=== PATIENT | male | born 1950 | race Caucasian/White ===

== ENCOUNTER → 2016-08-28 | Outpatient (REF) | payer OTHER ==
[~2016-08-28] MED LIST: AMLO10TA2 PO; ASPI81TA85 PO; ATOR40TA PO; GABA300C3 PO; HYDR-3713 PO; HYDR25TAB PO; LANTINJ4 SC; LISI40TAB PO; METO25TA74 PO; MULTTAB23 PO; NOVOINJ3 SC; No Historical Meds
[2016-08-28 19:14] LABS: COMPLEMENT C4 29.6 MG/DL (10-40)
== END ==
LOC: M LAB REF 16:53
PROVIDERS: ATTEND Internal Medicine Nephrology
DX: R80.1 Persistent proteinuria, unspecified (principal)

== ENCOUNTER → 2016-10-17 | Outpatient (REF) | payer OTHER ==
[2016-10-17 11:39] LABS: ALBUMIN 3.2 GM/DL (3.2-5.2); BILIRUBIN,TOTAL 0.3 MG/DL (0.2-1.0); CALCIUM LEVEL 8.1 MG/DL (8.8-10.2); CREATININE FOR GFR 1.88 MG/DL (0.70-1.30); GLOMERULAR FILTRATION RATE 38.3 (>49); POTASSIUM SERUM 4.2 MEQ/L (3.5-5.1); TOTAL PROTEIN 6.4 GM/DL (6.4-8.2)
== END ==
LOC: M SFHCCLAY 07:34
PROVIDERS: ATTEND Family Medicine
DX: E11.21 Type 2 diabetes mellitus with diabetic nephropathy (principal)

== ENCOUNTER → 2016-10-30 | Outpatient (CLI) | payer OTHER ==
--- NOTE | 2016-10-30 17:05 | REP ---
RIGHT BREAST ULTRASOUND: 10/30/2016. Clinical history: Retroareolar palpable lump for 1-month in a 66-year-old male. The retroareolar zone is scanned in this patient and compared to the left side. There is a heterogeneous, predominantly hypoechoic area 2.1 x 2 x 1.2 cm. There is no similar finding on the left side. Impression: 1. Ultrasound findings most consistent with gynecomastia in the retroareolar zone right breast. There is no similar finding on the left. I would recommend confirmation with bilateral mammogram. Signed by Edi Guevara MD 10/30/2016 05:14 P
== END ==
LOC: M RAD 11:49
PROVIDERS: ATTEND Family Medicine
DX: R92.8 Other abnormal and inconclusive findings on diagnostic imaging of breast (principal)

== ENCOUNTER → 2016-11-13 | Outpatient (CLI) | payer OTHER ==
[~2016-11-13] MED LIST changes: +GABA-282 PO; -GABA300C3 PO
--- NOTE | 2016-11-13 09:14 | REP ---
BILATERAL MAMMOGRAM: CLINICAL HISTORY: Right breast lump for 3 months with right axillary pain. Bilateral mammography performed in the [facility] and CC projections and correlated with the bilateral breast ultrasound 10/30/2016 which showed probable asymmetric gynecomastia. The mammogram does show asymmetric gynecomastia on the right. Ill-defined fibroglandular tissue is seen in the right retroareolar region. No suspicious mass or architectural distortion is seen. No clustered microcalcifications are seen. IMPRESSION: ACR 2 benign. No mass or clustered microcalcifications. Asymmetric gynecomastia right retroareolar region. Recommend clinical correlation and followup. BI-RADS/ACR category 2 mammogram. Benign finding(s). Routine annual screening mammography (for women over age 40). This mammogram was interpreted with the aid of an FDA-approved computer-aided detection system. A. Negative x-ray reports should not delay biopsy if a dominant or clinically suspicious mass is present. B. Four to eight percent of cancers are not identified by x-ray. C. Adenosis and dense breasts may obscure an underlying neoplasm. The patient states she/he had a clinical breast exam in 10/2016. The patient letter being requested is M2. Signed by Rishabh Stewart MD 11/13/2016 02:24 P
== END ==
LOC: M RAD 08:09
PROVIDERS: ATTEND Family Medicine
DX: R92.8 Other abnormal and inconclusive findings on diagnostic imaging of breast (principal)

== ENCOUNTER → 2017-04-28 | Outpatient (REF) | payer OTHER ==
[~2017-04-28] MED LIST changes: -ATOR40TA PO; +ATOR40TA75 PO; +METO1TAB32 PO; -METO25TA74 PO
[2017-04-28 12:20] LABS: ALBUMIN 3.2 GM/DL (3.2-5.2); ALBUMIN/GLOBULIN RATIO 0.84 (1.00-1.93); BILIRUBIN,TOTAL 0.3 MG/DL (0.2-1.0); CALCIUM LEVEL 8.7 MG/DL (8.8-10.2); CREATININE FOR GFR 2.19 MG/DL (0.70-1.30); GLOMERULAR FILTRATION RATE 32.1 (>49); POTASSIUM SERUM 4.3 MEQ/L (3.5-5.1)
[2017-04-29 14:12] LABS: PSA % FREE 48.9 % (.); PSA FREE 2.74 ng/mL; PSA TOTAL 5.6 ng/mL (0.0-4.0)
== END ==
LOC: M SFHCCLAY 07:58
PROVIDERS: ATTEND Family Medicine
DX: E11.21 Type 2 diabetes mellitus with diabetic nephropathy (principal); R97.20 Elevated prostate specific antigen [PSA]

== ENCOUNTER → 2017-06-12 | Outpatient (REF) | payer OTHER | LOC: M LAB REF 17:04 | PROVIDERS: ATTEND Podiatrist | DX: E11.51 Type 2 diabetes mellitus with diabetic peripheral angiopathy without gangrene (principal) ==

== ENCOUNTER → 2017-09-16 | Outpatient (CLI) | payer OTHER ==
[~2017-09-16] MED LIST changes: -AMLO10TA2 PO; -ASPI81TA85 PO; -ATOR40TA75 PO; -GABA-282 PO; +HEPARIN 1,000 UNITS/ML 10ML VIAL (FOR RADIOLOGY& DIALYSIS ONLY) As Ordered; -HYDR-3713 PO; -HYDR25TAB PO; +ISOVUE-300 61% 50ML VIAL (Q9967) As Ordered; -LANTINJ4 SC; -LISI40TAB PO; -METO1TAB32 PO; +MIDAZOLAM INJ 2 MG/2 ML VIAL (J2250) As Ordered; -MULTTAB23 PO; -NOVOINJ3 SC; -No Historical Meds; +fentaNYL 100 MCG/2 ML INJECTION (J3010) As Ordered
== END | disposition home or self-care (01) ==
LOC: M IRPRO 06:30
DX: I70.201 Unspecified atherosclerosis of native arteries of extremities, right leg (principal); E11.22 Type 2 diabetes mellitus with diabetic chronic kidney disease; I12.9 Hypertensive chronic kidney disease with stage 1 through stage 4 chronic kidney disease, or unspecified chronic kidney disease; N18.9 Chronic kidney disease, unspecified; Z86.73 Personal history of transient ischemic attack (TIA), and cerebral infarction without residual deficits
CPT/HCPCS: 36247

== ENCOUNTER → 2017-10-07 | Outpatient (CLI) | payer OTHER ==
[2017-10-07 12:10] LABS: BASO # 0.1 10^3/uL (0.0-0.2); BASO % 0.7 % (0.0-1.0); EOS # 0.2 10^3/uL (0.0-0.50); EOS % 1.9 % (0.0-3.0); HEMATOCRIT 33.5 % (42.0-52.0); HEMOGLOBIN 10.6 g/dl (14.0-18.0); IMMATURE GRANULOCYTE % 0.4 % (0-3.0); LYMPH # 1.5 10^3/uL (1.5-4.5); LYMPH % 14.3 % (24.0-44.0); MEAN CORPUSCULAR HEMOGLOBIN 28.1 pg (27.0-33.0); MEAN CORPUSCULAR HGB CONC 31.6 g/dl (32.0-36.5); MEAN CORPUSCULAR VOLUME 88.9 fl (80.0-96.0); MONO # 0.9 10^3/uL (0.0-0.8); MONO % 8.6 % (0.0-5.0); NEUTROPHILS # 7.7 10^3/uL (1.8-7.7); NEUTROPHILS % 74.1 % (36.0-66.0); PLATELET COUNT, AUTOMATED 239 10^3/uL (150-450); RED BLOOD COUNT 3.77 10^6/uL (4.30-6.10); RED CELL DISTRIBUTION WIDTH 13.1 % (11.5-14.5); WHITE BLOOD COUNT 10.4 10^3/uL (4.0-10.0)
[2017-10-07 12:29] LABS: ANION GAP 9 MEQ/L (8-16); BLOOD UREA NITROGEN 46 MG/DL (7-18); CALCIUM LEVEL 8.7 MG/DL (8.8-10.2); CARBON DIOXIDE LEVEL 25 MEQ/L (21-32); CHLORIDE LEVEL 106 MEQ/L (98-107); CREATININE FOR GFR 2.48 MG/DL (0.70-1.30); GLOMERULAR FILTRATION RATE 27.7 (>49); GLUCOSE, FASTING 173 MG/DL (70-100); SODIUM LEVEL 140 MEQ/L (136-145)
[2017-10-07 12:30] LABS: POTASSIUM SERUM 5.2 MEQ/L (3.5-5.1)
== END ==
LOC: M LAB 11:28
DX: I70.261 Atherosclerosis of native arteries of extremities with gangrene, right leg (principal); M79.605 Pain in left leg; I70.238 Atherosclerosis of native arteries of right leg with ulceration of other part of lower leg
CPT/HCPCS: 80048

== ENCOUNTER → 2017-10-21 | Outpatient (REF) | payer OTHER ==
[2017-10-21 11:52] LABS: ESTIMATED AVERAGE GLUCOSE 174 MG/DL (60-110); HEMOGLOBIN A1c 7.7 %
[2017-10-21 12:16] LABS: ALBUMIN 3.4 GM/DL (3.2-5.2); ALBUMIN/GLOBULIN RATIO 0.85 (1.00-1.93); ALKALINE PHOSPHATASE 123 U/L (45-117); ALT/SGPT 27 U/L (12-78); ANION GAP 10 MEQ/L (8-16); AST/SGOT 14 U/L (7-37); BILIRUBIN,TOTAL 0.3 MG/DL (0.2-1.0); BLOOD UREA NITROGEN 39 MG/DL (7-18); CARBON DIOXIDE LEVEL 23 MEQ/L (21-32); CHLORIDE LEVEL 108 MEQ/L (98-107); CHOLESTEROL LEVEL 113 MG/DL (<200); CHOLESTEROL RISK RATIO 3.228 (<5); CREATININE FOR GFR 2.49 MG/DL (0.70-1.30); GLOMERULAR FILTRATION RATE 27.6 (>49); GLUCOSE, FASTING 107 MG/DL (70-100); HDL CHOLESTEROL 35 MG/DL (>40); NON-HDL-C 78 MG/DL; SODIUM LEVEL 141 MEQ/L (136-145); TOTAL PROTEIN 7.4 GM/DL (6.4-8.2); TRIGLYCERIDES LEVEL 130 MG/DL (<150)
[2017-10-21 12:19] LABS: POTASSIUM SERUM 5.3 MEQ/L (3.5-5.1)
[2017-10-21 12:40] LABS: CREATININE, URINE 40.8 MG/DL; MAU/CREAT RATIO 426.4 MCG/MG (0.0-30.0)
== END ==
LOC: M SFHCCLAY 09:02
DX: E11.21 Type 2 diabetes mellitus with diabetic nephropathy (principal)
CPT/HCPCS: 80053

== ENCOUNTER → 2017-10-21 | Outpatient (REF) | payer OTHER ==
[2017-10-21 12:02] LABS: ALBUMIN 3.4 GM/DL (3.2-5.2); ANION GAP 11 MEQ/L (8-16); BLOOD UREA NITROGEN 40 MG/DL (7-18); CALCIUM LEVEL 9.1 MG/DL (8.8-10.2); CARBON DIOXIDE LEVEL 23 MEQ/L (21-32); CHLORIDE LEVEL 108 MEQ/L (98-107); CREATININE FOR GFR 2.53 MG/DL (0.70-1.30); GLOMERULAR FILTRATION RATE 27.1 (>49); GLUCOSE, FASTING 108 MG/DL (70-100); SODIUM LEVEL 142 MEQ/L (136-145)
[2017-10-21 12:03] LABS: POTASSIUM SERUM 5.3 MEQ/L (3.5-5.1)
== END ==
LOC: M LABDRAWC 11:22
DX: N18.4 Chronic kidney disease, stage 4 (severe) (principal)

== ENCOUNTER → 2017-11-05 | Outpatient (CLI) | payer OTHER ==
[2017-11-05 12:59] LABS: BASO # 0.1 10^3/uL (0.0-0.2); BASO % 0.8 % (0.0-1.0); EOS # 0.2 10^3/uL (0.0-0.50); EOS % 1.7 % (0.0-3.0); HEMATOCRIT 32.6 % (42.0-52.0); HEMOGLOBIN 10.4 g/dl (13.5-17.5); IMMATURE GRANULOCYTE % 0.5 % (0-3.0); LYMPH # 1.3 10^3/uL (1.5-4.5); LYMPH % 13.5 % (24.0-44.0); MEAN CORPUSCULAR HEMOGLOBIN 28.5 pg (27.0-33.0); MEAN CORPUSCULAR HGB CONC 31.9 g/dl (32.0-36.5); MEAN CORPUSCULAR VOLUME 89.3 fl (80.0-96.0); MONO # 0.7 10^3/uL (0.0-0.8); MONO % 7.1 % (0.0-5.0); NEUTROPHILS # 7.5 10^3/uL (1.8-7.7); NEUTROPHILS % 76.4 % (36.0-66.0); PLATELET COUNT, AUTOMATED 258 10^3/uL (150-450); RED BLOOD COUNT 3.65 10^6/uL (4.30-6.10); RED CELL DISTRIBUTION WIDTH 13.2 % (11.5-14.5); WHITE BLOOD COUNT 9.8 10^3/uL (4.0-10.0)
[2017-11-05 13:30] LABS: ANION GAP 8 MEQ/L (8-16); BLOOD UREA NITROGEN 53 MG/DL (7-18); CALCIUM LEVEL 8.6 MG/DL (8.8-10.2); CARBON DIOXIDE LEVEL 24 MEQ/L (21-32); CHLORIDE LEVEL 107 MEQ/L (98-107); CREATININE FOR GFR 2.68 MG/DL (0.70-1.30); GLOMERULAR FILTRATION RATE 25.4 (>49); GLUCOSE, FASTING 233 MG/DL (70-100); SODIUM LEVEL 139 MEQ/L (136-145)
[2017-11-05 13:35] LABS: POTASSIUM SERUM 5.4 MEQ/L (3.5-5.1)
== END ==
LOC: M LAB 12:29
DX: I70.261 Atherosclerosis of native arteries of extremities with gangrene, right leg (principal); I70.238 Atherosclerosis of native arteries of right leg with ulceration of other part of lower leg; M79.605 Pain in left leg
CPT/HCPCS: 80048

== ENCOUNTER → 2017-11-05 | Outpatient (REF) | payer OTHER | LOC: M LAB REF 10:54 | DX: E11.621 Type 2 diabetes mellitus with foot ulcer (principal) | CPT/HCPCS: 88305 ==

== ENCOUNTER → 2017-11-12 | Outpatient (REF) | payer OTHER | LOC: M LAB REF 16:17 | DX: M86.071 Acute hematogenous osteomyelitis, right ankle and foot (principal); M79.89 Other specified soft tissue disorders; L97.514 Non-pressure chronic ulcer of other part of right foot with necrosis of bone; E11.621 Type 2 diabetes mellitus with foot ulcer | CPT/HCPCS: 88305 ==

== ENCOUNTER → 2017-11-17 | Outpatient (CLI) | payer OTHER | LOC: M RAD 06:08 | DX: I70.261 Atherosclerosis of native arteries of extremities with gangrene, right leg (principal); M79.605 Pain in left leg; I87.393 Chronic venous hypertension (idiopathic) with other complications of bilateral lower extremity | CPT/HCPCS: 93923 ==

== ENCOUNTER 2017-11-19 11:40 | Inpatient (IN) | payer OTHER ==
[2017-11-19] MEDS ORDERED: BISACODYL 10 MG SUPP PR (13:30)
[2017-11-19] MEDS ORDERED: ONDANSETRON 4MG/2ML VIAL (J2405) IV (13:30)
[2017-11-19] MEDS ORDERED: MOM 30ML SUSPENSION UDC PO (13:30)
[2017-11-19 13:33] LABS: BEDSIDE GLUCOSE 146 MG/DL (80-115)
[2017-11-19 14:17] LABS: BASO # 0.1 10^3/uL (0.0-0.2); BASO % 0.3 % (0.0-1.0); EOS % 0.2 % (0.0-3.0); HEMATOCRIT 32.2 % (42.0-52.0); HEMOGLOBIN 10.3 g/dl (13.5-17.5); IMMATURE GRANULOCYTE % 1.3 % (0-3.0); LYMPH % 4.1 % (24.0-44.0); MEAN CORPUSCULAR HEMOGLOBIN 28.1 pg (27.0-33.0); MEAN CORPUSCULAR VOLUME 87.7 fl (80.0-96.0); MONO # 1.5 10^3/uL (0.0-0.8); MONO % 6.5 % (0.0-5.0); NEUTROPHILS # 20.8 10^3/uL (1.8-7.7); NEUTROPHILS % 87.6 % (36.0-66.0); PLATELET COUNT, AUTOMATED 466 10^3/uL (150-450); RED BLOOD COUNT 3.67 10^6/uL (4.30-6.10); RED CELL DISTRIBUTION WIDTH 13.5 % (11.5-14.5); WHITE BLOOD COUNT 23.7 10^3/uL (4.0-10.0)
[2017-11-19 14:28] LABS: ALBUMIN 2.6 GM/DL (3.2-5.2); ALBUMIN/GLOBULIN RATIO 0.51 (1.00-1.93); ALKALINE PHOSPHATASE 162 U/L (45-117); ALT/SGPT 110 U/L (12-78); ANION GAP 9 MEQ/L (8-16); AST/SGOT 77 U/L (7-37); BILIRUBIN,DIRECT 0.2 MG/DL (0.0-0.2); BILIRUBIN,TOTAL 0.4 MG/DL (0.2-1.0); BLOOD UREA NITROGEN 73 MG/DL (7-18); CALCIUM LEVEL 9.1 MG/DL (8.8-10.2); CARBON DIOXIDE LEVEL 21 MEQ/L (21-32); CHLORIDE LEVEL 104 MEQ/L (98-107); CREATININE FOR GFR 3.02 MG/DL (0.70-1.30); GLOMERULAR FILTRATION RATE 22.1 (>49); GLUCOSE, FASTING 151 MG/DL (70-100); SODIUM LEVEL 134 MEQ/L (136-145); TOTAL PROTEIN 7.7 GM/DL (6.4-8.2)
[2017-11-19 14:29] LABS: PARTIAL THROMBOPLASTIN TIME 40.6 SECONDS (26.8-37.9)
[2017-11-19 14:32] LABS: INR 1.21; PROTHROMBIN TIME 15.5 SECONDS (12.4-14.5)
[2017-11-19 14:33] LABS: POTASSIUM SERUM 6.1 MEQ/L (3.5-5.1)
[2017-11-19] MEDS: PIPERACILLIN/TAZOBACTAM SOD 3.375 GM in APPROPRIATE DILUENT 1 EA IV (16:47)
[2017-11-19] MEDS: ULTRACET TAB PO ×2 (16:47→23:13)
[2017-11-19 16:59] LABS: BEDSIDE GLUCOSE 214 MG/DL (80-115)
[2017-11-19] MEDS ORDERED: MIDAZOLAM INJ 2 MG/2 ML VIAL (J2250) As Ordered (17:28)
[2017-11-19] MEDS ORDERED: fentaNYL 100 MCG/2 ML INJECTION (J3010) As Ordered (17:28)
[2017-11-19] MEDS: SODIUM CHLORIDE 0.9% 1000 ML IV (17:45)
[2017-11-19] MEDS: LIDOCAINE 1% SDV INJ 30 ML VIAL As Ordered (17:58)
[2017-11-19] MEDS: BUPIVACAINE HCL 0.5% 30 ML VIAL As Ordered (17:58)
[2017-11-19] MEDS: VANCOMYCIN 1000 MG/20 ML VIAL (J3370) As Ordered (18:08)
[2017-11-19] MEDS: VANCOMYCIN HCL 1,000 MG, VIAL MATE ADAPTER 1 EACH in D5W 250 ML IV (18:09)
[2017-11-19] MEDS ORDERED: PERCOCET 5MG/325MG TAB PO (18:30)
[2017-11-19] MEDS ORDERED: fentaNYL 100 MCG/2 ML INJECTION (J3010) IV (18:30)
[2017-11-19] MEDS: LR 1,000 ML IV (18:30)
[2017-11-19 18:56] LABS: BEDSIDE GLUCOSE 227 MG/DL (80-115)
[2017-11-19 19:22] LABS: LACTIC ACID SEPSIS PROTOCOL 0.9 MMOL/L (0.4-2.0)
[2017-11-19] MEDS: SOD POLYSTYRENE SULFONATE SUSP 15 GM/60 ML UD PO (19:50)
[2017-11-19] MEDS: NS 1,000 ML IV (20:17)
[2017-11-19 20:27] LABS: APPEARANCE, URINE CLEAR (CLEAR); BACTERIA, URINE AUTO NEGATIVE (NEGATIVE); BILIRUBIN, URINE AUTO NEGATIVE (NEGATIVE); BLOOD, URINE BLOOD 2+ (NEGATIVE); COLOR, URINE YELLOW (YELLOW); GLUCOSE, URINE (UA) AUTO NEGATIVE (NEGATIVE); KETONE, URINE AUTO NEGATIVE (NEGATIVE); LEUKOCYTE ESTERASE, URINE AUTO NEGATIVE (NEGATIVE); MUCUS, URINE SMALL (NEGATIVE); NITRITE, URINE AUTO NEGATIVE (NEGATIVE); PROTEIN, URINE AUTO 1+ mg/dL (NEGATIVE); RBC, URINE AUTO 107 /HPF (0-3); SPECIFIC GRAVITY URINE AUTO 1.014 (1.002-1.035); SQUAMOUS EPITHELIAL CELL UR AU 0 /HPF (0-6); UROBILINOGEN, URINE AUTO 0.2 mg/dL (0.0-2.0); WBC, URINE AUTO 1 /HPF (0-3)
[2017-11-19] MEDS ORDERED: DEXTROSE 50% 50 ML SYRINGE IV (20:45)
[2017-11-19] MEDS ORDERED: GLUCAGON FOR INJ 1 MG VIAL (J1610) SC (20:45)
[2017-11-19] MEDS ORDERED: GLUCOSE 4 GM CHEW TABLET PO (20:45)
[2017-11-19] MEDS: HumaLOG INSULIN (NovoLOG) PER UNIT SC (21:00)
[2017-11-19] MEDS ORDERED: **hydrALAZINE HCL** 25 MG TAB PO (21:00)
[2017-11-19] MEDS: SENOKOT S TAB PO (21:23)
[2017-11-19] MEDS: DOCUSATE SODIUM 100 MG CAP PO (21:23)
[2017-11-19] MEDS: LEVEMIR (INSULIN DETEMIR) 1 UNITS/0.01ML SC (21:23)
[2017-11-19 21:38] LABS: BEDSIDE GLUCOSE 158 MG/DL (80-115)
[2017-11-19 22:00] LABS: ANION GAP 10 MEQ/L (8-16); BLOOD UREA NITROGEN 72 MG/DL (7-18); CALCIUM LEVEL 8.3 MG/DL (8.8-10.2); CARBON DIOXIDE LEVEL 19 MEQ/L (21-32); CHLORIDE LEVEL 106 MEQ/L (98-107); CREATININE FOR GFR 2.85 MG/DL (0.70-1.30); GLOMERULAR FILTRATION RATE 23.6 (>49); GLUCOSE, FASTING 165 MG/DL (70-100); POTASSIUM SERUM 4.8 MEQ/L (3.5-5.1); SODIUM LEVEL 135 MEQ/L (136-145)
[2017-11-19] MEDS: PIPERACILLIN/TAZOBACTAM SOD 2.25 GM in D5W MINI-BAG PLUS 50 ML IV (23:13)
[2017-11-20 04:41] LABS: BASO # 0.1 10^3/uL (0.0-0.2); BASO % 0.3 % (0.0-1.0); EOS # 0.1 10^3/uL (0.0-0.50); EOS % 0.3 % (0.0-3.0); HEMATOCRIT 28.5 % (42.0-52.0); LYMPH # 1.3 10^3/uL (1.5-4.5); LYMPH % 6.5 % (24.0-44.0); MEAN CORPUSCULAR HEMOGLOBIN 27.4 pg (27.0-33.0); MEAN CORPUSCULAR HGB CONC 31.6 g/dl (32.0-36.5); MEAN CORPUSCULAR VOLUME 86.9 fl (80.0-96.0); MONO # 1.3 10^3/uL (0.0-0.8); MONO % 6.6 % (0.0-5.0); NEUTROPHILS # 16.4 10^3/uL (1.8-7.7); NEUTROPHILS % 85.3 % (36.0-66.0); PLATELET COUNT, AUTOMATED 381 10^3/uL (150-450); RED BLOOD COUNT 3.28 10^6/uL (4.30-6.10); RED CELL DISTRIBUTION WIDTH 13.7 % (11.5-14.5); WHITE BLOOD COUNT 19.3 10^3/uL (4.0-10.0)
[2017-11-20 04:57] LABS: ALBUMIN 2.1 GM/DL (3.2-5.2); ANION GAP 10 MEQ/L (8-16); BLOOD UREA NITROGEN 69 MG/DL (7-18); CALCIUM LEVEL 8.3 MG/DL (8.8-10.2); CARBON DIOXIDE LEVEL 17 MEQ/L (21-32); CHLORIDE LEVEL 109 MEQ/L (98-107); CREATININE FOR GFR 2.77 MG/DL (0.70-1.30); GLOMERULAR FILTRATION RATE 24.4 (>49); GLUCOSE, FASTING 172 MG/DL (70-100); PHOSPHORUS LEVEL 3.9 MG/DL (2.5-4.9); POTASSIUM SERUM 4.9 MEQ/L (3.5-5.1); SODIUM LEVEL 136 MEQ/L (136-145)
[2017-11-20] MEDS: PIPERACILLIN/TAZOBACTAM SOD 2.25 GM in D5W MINI-BAG PLUS 50 ML IV ×4 (05:20→23:01)
[2017-11-20] MEDS: VANCOMYCIN HCL 1,000 MG, VIAL MATE ADAPTER 1 EACH in D5W 250 ML IV (08:25)
[2017-11-20] MEDS: METOPROLOL TART 25 MG TABLET PO (08:26)
[2017-11-20] MEDS: LOPERAMIDE 2 MG CAP PO ×2 (08:26→14:49)
[2017-11-20] MEDS: ASPIRIN 81 MG ENTERIC TAB PO (08:26)
[2017-11-20] MEDS: VITAMIN D 1,000 INTERNATIONAL UNITS TABLET PO (08:26)
[2017-11-20] MEDS: SENOKOT S TAB PO ×2 (08:27→21:00)
[2017-11-20] MEDS: HumaLOG INSULIN (NovoLOG) PER UNIT SC ×4 (08:27→21:00)
[2017-11-20] MEDS: DOCUSATE SODIUM 100 MG CAP PO ×2 (08:28→21:00)
[2017-11-20] MEDS ORDERED: SPIRONOLACTONE 25 MG TAB PO (09:00)
[2017-11-20] MEDS ORDERED: TORSEMIDE 20 MG TAB PO (09:00)
[2017-11-20] MEDS ORDERED: ATORVASTATIN 20 MG TAB PO (09:00)
[2017-11-20 09:46] LABS: IRON (FE) 28 UG/DL (65-175); PERCENT SATURATION 18.1 % (19.7-50.0); TOTAL IRON BINDING CAPACITY 155 UG/DL (250-450)
[2017-11-20 10:23] LABS: FERRITIN 2186 NG/ML (26-388)
[2017-11-20 11:45] LABS: BEDSIDE GLUCOSE 153 MG/DL (80-115)
[2017-11-20] MEDS: SODIUM BICARBONATE 75 MEQ in NS 0.45% 1,000 ML IV (12:18)
[2017-11-20] MEDS: ENOXAPARIN 30 MG/0.3 ML SYR (J1650) SC (12:18)
[2017-11-20] MEDS: FERROUS GLUCONATE 324 MG TAB PO (12:18)
[2017-11-20] MEDS ORDERED: VANCOMYCIN HCL 1,000 MG, VIAL MATE ADAPTER 1 EACH in D5W 250 ML IV (16:00)
[2017-11-20] MEDS ORDERED: **VANCO AFTER HD** MISC XX (16:00)
[2017-11-20 17:17] LABS: BEDSIDE GLUCOSE 148 MG/DL (80-115)
[2017-11-20 20:49] LABS: BEDSIDE GLUCOSE 134 MG/DL (80-115)
[2017-11-20] MEDS: LEVEMIR (INSULIN DETEMIR) 1 UNITS/0.01ML SC (21:15)
[2017-11-21] MEDS: SODIUM BICARBONATE 75 MEQ in NS 0.45% 1,000 ML IV (01:25)
[2017-11-21] MEDS: PIPERACILLIN/TAZOBACTAM SOD 2.25 GM in D5W MINI-BAG PLUS 50 ML IV ×4 (04:37→23:03)
[2017-11-21 05:51] LABS: BASO % 0.3 % (0.0-1.0); EOS # 0.1 10^3/uL (0.0-0.50); EOS % 0.7 % (0.0-3.0); HEMATOCRIT 26.4 % (42.0-52.0); HEMOGLOBIN 8.5 g/dl (13.5-17.5); IMMATURE GRANULOCYTE % 1.1 % (0-3.0); LYMPH # 1.1 10^3/uL (1.5-4.5); LYMPH % 7.2 % (24.0-44.0); MEAN CORPUSCULAR HEMOGLOBIN 27.8 pg (27.0-33.0); MEAN CORPUSCULAR HGB CONC 32.2 g/dl (32.0-36.5); MEAN CORPUSCULAR VOLUME 86.3 fl (80.0-96.0); MONO % 6.6 % (0.0-5.0); NEUTROPHILS # 12.4 10^3/uL (1.8-7.7); NEUTROPHILS % 84.1 % (36.0-66.0); PLATELET COUNT, AUTOMATED 379 10^3/uL (150-450); RED BLOOD COUNT 3.06 10^6/uL (4.30-6.10); RED CELL DISTRIBUTION WIDTH 13.7 % (11.5-14.5); WHITE BLOOD COUNT 14.7 10^3/uL (4.0-10.0)
[2017-11-21 06:12] LABS: ANION GAP 10 MEQ/L (8-16); BLOOD UREA NITROGEN 64 MG/DL (7-18); CALCIUM LEVEL 8.4 MG/DL (8.8-10.2); CARBON DIOXIDE LEVEL 20 MEQ/L (21-32); CHLORIDE LEVEL 110 MEQ/L (98-107); CREATININE FOR GFR 2.37 MG/DL (0.70-1.30); GLOMERULAR FILTRATION RATE 29.2 (>49); GLUCOSE, FASTING 70 MG/DL (70-100); POTASSIUM SERUM 4.4 MEQ/L (3.5-5.1); SODIUM LEVEL 140 MEQ/L (136-145)
[2017-11-21] MEDS: HumaLOG INSULIN (NovoLOG) PER UNIT SC ×4 (07:10→21:34)
[2017-11-21 08:45] LABS: VANCOMYCIN LEVEL TROUGH 13.4 UG/ML (10.0-20.0)
[2017-11-21] MEDS: DOCUSATE SODIUM 100 MG CAP PO ×2 (09:00→21:00)
[2017-11-21] MEDS: SENOKOT S TAB PO ×2 (09:00→21:00)
[2017-11-21] MEDS: VANCOMYCIN HCL 1,000 MG, VIAL MATE ADAPTER 1 EACH in D5W 250 ML IV (10:09)
[2017-11-21] MEDS: LOPERAMIDE 2 MG CAP PO (10:10)
[2017-11-21] MEDS: VITAMIN D 1,000 INTERNATIONAL UNITS TABLET PO (10:10)
[2017-11-21] MEDS: FERROUS GLUCONATE 324 MG TAB PO (10:10)
[2017-11-21] MEDS: ASPIRIN 81 MG ENTERIC TAB PO (10:10)
[2017-11-21] MEDS: ENOXAPARIN 30 MG/0.3 ML SYR (J1650) SC (10:11)
[2017-11-21] MEDS: ULTRACET TAB PO (10:20)
[2017-11-21] MEDS: METOPROLOL SUCC (TopROL XL) 50MG **XL** TAB PO (10:21)
[2017-11-21] MEDS: LACTOBACILLUS ACIDOPHILUS CAP (BACID) PO (13:14)
[2017-11-21 18:25] LABS: BEDSIDE GLUCOSE 219 MG/DL (80-115)
[2017-11-21 20:32] LABS: BEDSIDE GLUCOSE 252 MG/DL (80-115)
[2017-11-21] MEDS: LEVEMIR (INSULIN DETEMIR) 1 UNITS/0.01ML SC (21:34)
[2017-11-21] MEDS: PERCOCET 5MG/325MG TAB PO (21:42)
[2017-11-22 02:23] LABS: BEDSIDE GLUCOSE 113 MG/DL (80-115)
[2017-11-22 02:23] LABS: BEDSIDE GLUCOSE 168 MG/DL (80-115)
[2017-11-22 04:07] LABS: BASO % 0.2 % (0.0-1.0); EOS # 0.2 10^3/uL (0.0-0.50); EOS % 1.5 % (0.0-3.0); HEMATOCRIT 27.7 % (42.0-52.0); HEMOGLOBIN 8.7 g/dl (13.5-17.5); IMMATURE GRANULOCYTE % 1.6 % (0-3.0); LYMPH # 1.4 10^3/uL (1.5-4.5); LYMPH % 11.7 % (24.0-44.0); MEAN CORPUSCULAR HEMOGLOBIN 28.1 pg (27.0-33.0); MEAN CORPUSCULAR HGB CONC 31.4 g/dl (32.0-36.5); MEAN CORPUSCULAR VOLUME 89.4 fl (80.0-96.0); MONO # 0.9 10^3/uL (0.0-0.8); MONO % 7.2 % (0.0-5.0); NEUTROPHILS # 9.5 10^3/uL (1.8-7.7); NEUTROPHILS % 77.8 % (36.0-66.0); PLATELET COUNT, AUTOMATED 372 10^3/uL (150-450); RED CELL DISTRIBUTION WIDTH 13.5 % (11.5-14.5); WHITE BLOOD COUNT 12.2 10^3/uL (4.0-10.0)
[2017-11-22] MEDS: PIPERACILLIN/TAZOBACTAM SOD 2.25 GM in D5W MINI-BAG PLUS 50 ML IV ×4 (04:17→22:19)
[2017-11-22 04:23] LABS: ANION GAP 7 MEQ/L (8-16); BLOOD UREA NITROGEN 49 MG/DL (7-18); CALCIUM LEVEL 8.3 MG/DL (8.8-10.2); CARBON DIOXIDE LEVEL 24 MEQ/L (21-32); CHLORIDE LEVEL 112 MEQ/L (98-107); CREATININE FOR GFR 2.14 MG/DL (0.70-1.30); GLOMERULAR FILTRATION RATE 32.9 (>49); GLUCOSE, FASTING 97 MG/DL (70-100); PHOSPHORUS LEVEL 4.1 MG/DL (2.5-4.9); POTASSIUM SERUM 4.9 MEQ/L (3.5-5.1); SODIUM LEVEL 143 MEQ/L (136-145)
[2017-11-22] MEDS: PERCOCET 5MG/325MG TAB PO ×2 (07:06→19:23)
[2017-11-22] MEDS: HumaLOG INSULIN (NovoLOG) PER UNIT SC ×4 (07:07→20:48)
[2017-11-22] MEDS: DOCUSATE SODIUM 100 MG CAP PO ×2 (09:00→20:47)
[2017-11-22] MEDS: SENOKOT S TAB PO ×2 (09:00→20:48)
[2017-11-22] MEDS: LACTOBACILLUS ACIDOPHILUS CAP (BACID) PO (09:50)
[2017-11-22] MEDS: FERROUS GLUCONATE 324 MG TAB PO (09:51)
[2017-11-22] MEDS: VITAMIN D 1,000 INTERNATIONAL UNITS TABLET PO (09:51)
[2017-11-22] MEDS: LOPERAMIDE 2 MG CAP PO ×2 (09:51→20:49)
[2017-11-22] MEDS: ASPIRIN 81 MG ENTERIC TAB PO (09:51)
[2017-11-22] MEDS: VANCOMYCIN HCL 1,000 MG, VIAL MATE ADAPTER 1 EACH in D5W 250 ML IV (09:51)
[2017-11-22] MEDS: ENOXAPARIN 30 MG/0.3 ML SYR (J1650) SC (09:51)
[2017-11-22] MEDS: METOPROLOL SUCC (TopROL XL) 50MG **XL** TAB PO (09:51)
[2017-11-22 11:44] LABS: BEDSIDE GLUCOSE 182 MG/DL (80-115)
[2017-11-22 17:13] LABS: BEDSIDE GLUCOSE 207 MG/DL (80-115)
[2017-11-22 20:16] LABS: BEDSIDE GLUCOSE 203 MG/DL (80-115)
[2017-11-22] MEDS: LEVEMIR (INSULIN DETEMIR) 1 UNITS/0.01ML SC (20:49)
[2017-11-23] MEDS: PIPERACILLIN/TAZOBACTAM SOD 2.25 GM in D5W MINI-BAG PLUS 50 ML IV ×4 (04:16→23:05)
[2017-11-23 05:24] LABS: BASO % 0.4 % (0.0-1.0); EOS # 0.2 10^3/uL (0.0-0.50); EOS % 1.7 % (0.0-3.0); HEMATOCRIT 27.7 % (42.0-52.0); HEMOGLOBIN 8.5 g/dl (13.5-17.5); IMMATURE GRANULOCYTE % 1.4 % (0-3.0); LYMPH # 1.3 10^3/uL (1.5-4.5); LYMPH % 11.9 % (24.0-44.0); MEAN CORPUSCULAR HEMOGLOBIN 27.4 pg (27.0-33.0); MEAN CORPUSCULAR HGB CONC 30.7 g/dl (32.0-36.5); MEAN CORPUSCULAR VOLUME 89.4 fl (80.0-96.0); MONO # 0.8 10^3/uL (0.0-0.8); MONO % 7.1 % (0.0-5.0); NEUTROPHILS # 8.6 10^3/uL (1.8-7.7); NEUTROPHILS % 77.5 % (36.0-66.0); PLATELET COUNT, AUTOMATED 370 10^3/uL (150-450); RED CELL DISTRIBUTION WIDTH 13.5 % (11.5-14.5); WHITE BLOOD COUNT 11.1 10^3/uL (4.0-10.0)
[2017-11-23 05:43] LABS: ANION GAP 5 MEQ/L (8-16); BLOOD UREA NITROGEN 36 MG/DL (7-18); CALCIUM LEVEL 8.3 MG/DL (8.8-10.2); CARBON DIOXIDE LEVEL 23 MEQ/L (21-32); CHLORIDE LEVEL 112 MEQ/L (98-107); CREATININE FOR GFR 1.88 MG/DL (0.70-1.30); GLOMERULAR FILTRATION RATE 38.2 (>49); GLUCOSE, FASTING 70 MG/DL (70-100); POTASSIUM SERUM 4.6 MEQ/L (3.5-5.1); SODIUM LEVEL 140 MEQ/L (136-145)
[2017-11-23 05:44] LABS: ALBUMIN 1.9 GM/DL (3.2-5.2); PHOSPHORUS LEVEL 3.3 MG/DL (2.5-4.9)
[2017-11-23] MEDS: HumaLOG INSULIN (NovoLOG) PER UNIT SC ×5 (06:59→21:00)
[2017-11-23] MEDS: DOCUSATE SODIUM 100 MG CAP PO ×2 (07:53→20:49)
[2017-11-23] MEDS: SENOKOT S TAB PO ×2 (07:53→20:48)
[2017-11-23] MEDS: LACTOBACILLUS ACIDOPHILUS CAP (BACID) PO (08:27)
[2017-11-23] MEDS: ASPIRIN 81 MG ENTERIC TAB PO (08:27)
[2017-11-23] MEDS: METOPROLOL SUCC (TopROL XL) 50MG **XL** TAB PO (08:27)
[2017-11-23] MEDS: LOPERAMIDE 2 MG CAP PO (08:27)
[2017-11-23] MEDS: FERROUS GLUCONATE 324 MG TAB PO (08:27)
[2017-11-23] MEDS: VITAMIN D 1,000 INTERNATIONAL UNITS TABLET PO (08:27)
[2017-11-23] MEDS: ENOXAPARIN 30 MG/0.3 ML SYR (J1650) SC (08:27)
[2017-11-23] MEDS: VANCOMYCIN HCL 1,000 MG, VIAL MATE ADAPTER 1 EACH in D5W 250 ML IV (08:28)
[2017-11-23] MEDS: PERCOCET 5MG/325MG TAB PO ×2 (08:28→17:27)
[2017-11-23 11:46] LABS: BEDSIDE GLUCOSE 199 MG/DL (80-115)
[2017-11-23 16:54] LABS: BEDSIDE GLUCOSE 102 MG/DL (80-115)
[2017-11-23] MEDS: LEVEMIR (INSULIN DETEMIR) 1 UNITS/0.01ML SC (20:48)
[2017-11-23 22:06] LABS: BEDSIDE GLUCOSE 236 MG/DL (80-115)
[2017-11-24] MEDS: PERCOCET 5MG/325MG TAB PO ×3 (00:34→15:35)
[2017-11-24] MEDS: PIPERACILLIN/TAZOBACTAM SOD 2.25 GM in D5W MINI-BAG PLUS 50 ML IV ×4 (04:59→23:22)
[2017-11-24 05:19] LABS: BASO # 0.1 10^3/uL (0.0-0.2); BASO % 0.4 % (0.0-1.0); EOS # 0.2 10^3/uL (0.0-0.50); EOS % 1.5 % (0.0-3.0); HEMATOCRIT 26.4 % (42.0-52.0); HEMOGLOBIN 8.3 g/dl (13.5-17.5); IMMATURE GRANULOCYTE % 1.5 % (0-3.0); LYMPH # 1.5 10^3/uL (1.5-4.5); LYMPH % 12.7 % (24.0-44.0); MEAN CORPUSCULAR HEMOGLOBIN 27.6 pg (27.0-33.0); MEAN CORPUSCULAR HGB CONC 31.4 g/dl (32.0-36.5); MEAN CORPUSCULAR VOLUME 87.7 fl (80.0-96.0); MONO # 0.8 10^3/uL (0.0-0.8); NEUTROPHILS % 76.9 % (36.0-66.0); PLATELET COUNT, AUTOMATED 385 10^3/uL (150-450); RED BLOOD COUNT 3.01 10^6/uL (4.30-6.10); RED CELL DISTRIBUTION WIDTH 13.2 % (11.5-14.5); WHITE BLOOD COUNT 11.7 10^3/uL (4.0-10.0)
[2017-11-24 05:45] LABS: ALBUMIN 1.9 GM/DL (3.2-5.2); ANION GAP 7 MEQ/L (8-16); BLOOD UREA NITROGEN 31 MG/DL (7-18); CALCIUM LEVEL 8.3 MG/DL (8.8-10.2); CARBON DIOXIDE LEVEL 22 MEQ/L (21-32); CHLORIDE LEVEL 112 MEQ/L (98-107); CREATININE FOR GFR 2.05 MG/DL (0.70-1.30); GLOMERULAR FILTRATION RATE 34.5 (>49); GLUCOSE, FASTING 112 MG/DL (70-100); PHOSPHORUS LEVEL 3.3 MG/DL (2.5-4.9); POTASSIUM SERUM 4.7 MEQ/L (3.5-5.1); SODIUM LEVEL 141 MEQ/L (136-145)
[2017-11-24] MEDS: DOCUSATE SODIUM 100 MG CAP PO ×2 (07:44→20:30)
[2017-11-24] MEDS: HumaLOG INSULIN (NovoLOG) PER UNIT SC ×4 (07:44→20:30)
[2017-11-24] MEDS: SENOKOT S TAB PO ×2 (07:56→20:30)
[2017-11-24] MEDS: METOPROLOL SUCC (TopROL XL) 50MG **XL** TAB PO (08:22)
[2017-11-24] MEDS: ASPIRIN 81 MG ENTERIC TAB PO (08:22)
[2017-11-24] MEDS: LOPERAMIDE 2 MG CAP PO (08:22)
[2017-11-24] MEDS: FERROUS GLUCONATE 324 MG TAB PO (08:22)
[2017-11-24] MEDS: LACTOBACILLUS ACIDOPHILUS CAP (BACID) PO (08:22)
[2017-11-24] MEDS: ENOXAPARIN 30 MG/0.3 ML SYR (J1650) SC (08:23)
[2017-11-24] MEDS: VITAMIN D 1,000 INTERNATIONAL UNITS TABLET PO (08:23)
[2017-11-24 09:03] LABS: VANCOMYCIN LEVEL TROUGH 15.4 UG/ML (10.0-20.0)
[2017-11-24] MEDS: VANCOMYCIN HCL 1,000 MG, VIAL MATE ADAPTER 1 EACH in D5W 250 ML IV (09:41)
[2017-11-24] MEDS: DARBEPOETIN 100 MCG/0.5 ML *NON-DIALYSIS* SYRINGE (J0881) SC (09:41)
[2017-11-24 11:46] LABS: BEDSIDE GLUCOSE 139 MG/DL (80-115)
[2017-11-24 17:00] LABS: BEDSIDE GLUCOSE 163 MG/DL (80-115)
[2017-11-24 20:23] LABS: BEDSIDE GLUCOSE 167 MG/DL (80-115)
[2017-11-24] MEDS: LEVEMIR (INSULIN DETEMIR) 1 UNITS/0.01ML SC (20:31)
[2017-11-25] MEDS: PERCOCET 5MG/325MG TAB PO ×2 (02:57→11:28)
[2017-11-25] MEDS: PIPERACILLIN/TAZOBACTAM SOD 2.25 GM in D5W MINI-BAG PLUS 50 ML IV ×3 (04:20→17:26)
[2017-11-25] MEDS: SLF 3 ML SYR IV ×3 (05:05→22:00)
[2017-11-25 05:35] LABS: BASO # 0.1 10^3/uL (0.0-0.2); BASO % 0.4 % (0.0-1.0); EOS # 0.2 10^3/uL (0.0-0.50); EOS % 1.6 % (0.0-3.0); HEMATOCRIT 27.3 % (42.0-52.0); HEMOGLOBIN 8.5 g/dl (13.5-17.5); IMMATURE GRANULOCYTE % 1.1 % (0-3.0); LYMPH # 1.1 10^3/uL (1.5-4.5); MEAN CORPUSCULAR HEMOGLOBIN 27.2 pg (27.0-33.0); MEAN CORPUSCULAR HGB CONC 31.1 g/dl (32.0-36.5); MEAN CORPUSCULAR VOLUME 87.2 fl (80.0-96.0); MONO # 0.8 10^3/uL (0.0-0.8); MONO % 6.1 % (0.0-5.0); NEUTROPHILS % 81.8 % (36.0-66.0); PLATELET COUNT, AUTOMATED 381 10^3/uL (150-450); RED BLOOD COUNT 3.13 10^6/uL (4.30-6.10); RED CELL DISTRIBUTION WIDTH 13.2 % (11.5-14.5); WHITE BLOOD COUNT 12.2 10^3/uL (4.0-10.0)
[2017-11-25 05:47] LABS: ANION GAP 7 MEQ/L (8-16); BLOOD UREA NITROGEN 29 MG/DL (7-18); CALCIUM LEVEL 8.2 MG/DL (8.8-10.2); CARBON DIOXIDE LEVEL 22 MEQ/L (21-32); CHLORIDE LEVEL 112 MEQ/L (98-107); CREATININE FOR GFR 2.03 MG/DL (0.70-1.30); GLOMERULAR FILTRATION RATE 34.9 (>49); GLUCOSE, FASTING 116 MG/DL (70-100); POTASSIUM SERUM 4.9 MEQ/L (3.5-5.1); SODIUM LEVEL 141 MEQ/L (136-145)
[2017-11-25] MEDS: HumaLOG INSULIN (NovoLOG) PER UNIT SC ×4 (07:30→21:00)
[2017-11-25] MEDS: DOCUSATE SODIUM 100 MG CAP PO ×2 (08:36→21:00)
[2017-11-25] MEDS: LACTOBACILLUS ACIDOPHILUS CAP (BACID) PO (08:36)
[2017-11-25] MEDS: VITAMIN D 1,000 INTERNATIONAL UNITS TABLET PO (08:37)
[2017-11-25] MEDS: LOPERAMIDE 2 MG CAP PO (08:37)
[2017-11-25] MEDS: METOPROLOL SUCC (TopROL XL) 50MG **XL** TAB PO (08:38)
[2017-11-25] MEDS: FERROUS GLUCONATE 324 MG TAB PO (08:38)
[2017-11-25] MEDS: SENOKOT S TAB PO ×2 (08:46→21:00)
[2017-11-25] MEDS: ASPIRIN 81 MG ENTERIC TAB PO (08:46)
[2017-11-25] MEDS: VANCOMYCIN HCL 1,000 MG, VIAL MATE ADAPTER 1 EACH in D5W 250 ML IV (08:48)
[2017-11-25] MEDS: ENOXAPARIN 30 MG/0.3 ML SYR (J1650) SC (08:49)
[2017-11-25 11:20] LABS: BEDSIDE GLUCOSE 96 MG/DL (80-115)
[2017-11-25 17:02] LABS: BEDSIDE GLUCOSE 81 MG/DL (80-115)
[2017-11-25] MEDS ORDERED: PROPOFOL 200 MG/20 ML VIAL As Ordered (19:39)
[2017-11-25] MEDS ORDERED: LIDOCAINE 2% INJ 100 MG/5 ML SDV (FOR ANES.) As Ordered (19:39)
[2017-11-25] MEDS ORDERED: fentaNYL 100 MCG/2 ML INJECTION (J3010) As Ordered (19:40)
[2017-11-25] MEDS ORDERED: MIDAZOLAM INJ 2 MG/2 ML VIAL (J2250) As Ordered (19:40)
[2017-11-25] MEDS: LEVEMIR (INSULIN DETEMIR) 1 UNITS/0.01ML SC (21:00)
[2017-11-25] MEDS: LR 1,000 ML IV (21:30)
[2017-11-25] MEDS ORDERED: METOCLOPRAMIDE INJ 10MG/2ML VIAL (J2765) IV (21:30)
[2017-11-25] MEDS ORDERED: ONDANSETRON 4MG/2ML VIAL (J2405) IV (21:30)
[2017-11-25] MEDS ORDERED: fentaNYL 100 MCG/2 ML INJECTION (J3010) IV (21:30)
[2017-11-25 22:19] LABS: BEDSIDE GLUCOSE 82 MG/DL (80-115)
[2017-11-26] MEDS: PIPERACILLIN/TAZOBACTAM SOD 2.25 GM in D5W MINI-BAG PLUS 50 ML IV ×4 (00:04→17:13)
[2017-11-26 04:38] LABS: BASO % 0.4 % (0.0-1.0); EOS # 0.2 10^3/uL (0.0-0.50); EOS % 1.7 % (0.0-3.0); HEMATOCRIT 26.4 % (42.0-52.0); HEMOGLOBIN 8.2 g/dl (13.5-17.5); LYMPH % 10.1 % (24.0-44.0); MEAN CORPUSCULAR HEMOGLOBIN 27.6 pg (27.0-33.0); MEAN CORPUSCULAR HGB CONC 31.1 g/dl (32.0-36.5); MEAN CORPUSCULAR VOLUME 88.9 fl (80.0-96.0); MONO # 0.6 10^3/uL (0.0-0.8); NEUTROPHILS # 8.3 10^3/uL (1.8-7.7); NEUTROPHILS % 80.8 % (36.0-66.0); PLATELET COUNT, AUTOMATED 359 10^3/uL (150-450); RED BLOOD COUNT 2.97 10^6/uL (4.30-6.10); RED CELL DISTRIBUTION WIDTH 13.2 % (11.5-14.5); WHITE BLOOD COUNT 10.3 10^3/uL (4.0-10.0)
[2017-11-26 04:57] LABS: ANION GAP 5 MEQ/L (8-16); BLOOD UREA NITROGEN 27 MG/DL (7-18); CALCIUM LEVEL 8.5 MG/DL (8.8-10.2); CARBON DIOXIDE LEVEL 24 MEQ/L (21-32); CHLORIDE LEVEL 110 MEQ/L (98-107); CREATININE FOR GFR 2.05 MG/DL (0.70-1.30); GLOMERULAR FILTRATION RATE 34.5 (>49); GLUCOSE, FASTING 165 MG/DL (70-100); PHOSPHORUS LEVEL 3.2 MG/DL (2.5-4.9); POTASSIUM SERUM 4.4 MEQ/L (3.5-5.1); SODIUM LEVEL 139 MEQ/L (136-145)
[2017-11-26] MEDS: SLF 3 ML SYR IV ×3 (06:00→20:50)
[2017-11-26] MEDS: SENOKOT S TAB PO ×2 (07:15→20:50)
[2017-11-26] MEDS: DOCUSATE SODIUM 100 MG CAP PO ×2 (07:15→20:50)
[2017-11-26] MEDS: HumaLOG INSULIN (NovoLOG) PER UNIT SC ×4 (07:15→20:49)
[2017-11-26] MEDS: PERCOCET 5MG/325MG TAB PO ×2 (07:16→15:58)
[2017-11-26] MEDS: ASPIRIN 81 MG ENTERIC TAB PO (08:09)
[2017-11-26] MEDS: FERROUS GLUCONATE 324 MG TAB PO (08:10)
[2017-11-26] MEDS: ENOXAPARIN 30 MG/0.3 ML SYR (J1650) SC (08:10)
[2017-11-26] MEDS: VANCOMYCIN HCL 1,000 MG, VIAL MATE ADAPTER 1 EACH in D5W 250 ML IV (08:10)
[2017-11-26] MEDS: LOPERAMIDE 2 MG CAP PO (08:10)
[2017-11-26] MEDS: VITAMIN D 1,000 INTERNATIONAL UNITS TABLET PO (08:10)
[2017-11-26] MEDS: LACTOBACILLUS ACIDOPHILUS CAP (BACID) PO (08:10)
[2017-11-26] MEDS: METOPROLOL SUCC (TopROL XL) 50MG **XL** TAB PO (08:11)
[2017-11-26 11:50] LABS: BEDSIDE GLUCOSE 267 MG/DL (80-115)
[2017-11-26 16:37] LABS: BEDSIDE GLUCOSE 122 MG/DL (80-115)
[2017-11-26 20:07] LABS: BEDSIDE GLUCOSE 251 MG/DL (80-115)
[2017-11-26] MEDS: LEVEMIR (INSULIN DETEMIR) 1 UNITS/0.01ML SC (20:50)
[2017-11-27] MEDS: SLF 3 ML SYR IV ×3 (06:24→21:23)
[2017-11-27 07:18] LABS: BEDSIDE GLUCOSE 79 MG/DL (80-115)
[2017-11-27] MEDS: FERROUS GLUCONATE 324 MG TAB PO (08:17)
[2017-11-27] MEDS: ASPIRIN 81 MG ENTERIC TAB PO (08:17)
[2017-11-27] MEDS: LACTOBACILLUS ACIDOPHILUS CAP (BACID) PO (08:17)
[2017-11-27] MEDS: LOPERAMIDE 2 MG CAP PO (08:17)
[2017-11-27] MEDS: VITAMIN D 1,000 INTERNATIONAL UNITS TABLET PO (08:18)
[2017-11-27] MEDS: METOPROLOL SUCC (TopROL XL) 50MG **XL** TAB PO (08:18)
[2017-11-27] MEDS: ENOXAPARIN 30 MG/0.3 ML SYR (J1650) SC (08:18)
[2017-11-27] MEDS: HumaLOG INSULIN (NovoLOG) PER UNIT SC ×4 (08:32→20:13)
[2017-11-27] MEDS: DOCUSATE SODIUM 100 MG CAP PO ×2 (08:32→20:13)
[2017-11-27] MEDS: SENOKOT S TAB PO ×2 (08:32→20:13)
[2017-11-27] MEDS: PERCOCET 5MG/325MG TAB PO (08:44)
[2017-11-27] MEDS: VANCOMYCIN HCL 1,000 MG, VIAL MATE ADAPTER 1 EACH in D5W 250 ML IV (08:45)
[2017-11-27 10:51] LABS: BASO % 0.4 % (0.0-1.0); EOS # 0.2 10^3/uL (0.0-0.50); EOS % 1.7 % (0.0-3.0); HEMATOCRIT 27.8 % (42.0-52.0); HEMOGLOBIN 8.7 g/dl (13.5-17.5); IMMATURE GRANULOCYTE % 0.8 % (0-3.0); LYMPH # 1.2 10^3/uL (1.5-4.5); LYMPH % 11.9 % (24.0-44.0); MEAN CORPUSCULAR HEMOGLOBIN 27.6 pg (27.0-33.0); MEAN CORPUSCULAR HGB CONC 31.3 g/dl (32.0-36.5); MEAN CORPUSCULAR VOLUME 88.3 fl (80.0-96.0); MONO # 0.7 10^3/uL (0.0-0.8); NEUTROPHILS # 8.1 10^3/uL (1.8-7.7); NEUTROPHILS % 78.2 % (36.0-66.0); PLATELET COUNT, AUTOMATED 355 10^3/uL (150-450); RED BLOOD COUNT 3.15 10^6/uL (4.30-6.10); RED CELL DISTRIBUTION WIDTH 13.2 % (11.5-14.5); WHITE BLOOD COUNT 10.3 10^3/uL (4.0-10.0)
[2017-11-27 11:19] LABS: BEDSIDE GLUCOSE 143 MG/DL (80-115)
[2017-11-27] MEDS: MEROPENEM INJ 1 GM in APPROPRIATE DILUENT 1 EA IV ×2 (12:22→23:13)
[2017-11-27 16:40] LABS: BEDSIDE GLUCOSE 237 MG/DL (80-115)
[2017-11-27 20:12] LABS: BEDSIDE GLUCOSE 207 MG/DL (80-115)
[2017-11-27] MEDS: LEVEMIR (INSULIN DETEMIR) 1 UNITS/0.01ML SC (20:14)
[2017-11-28] MEDS: SLF 3 ML SYR IV ×3 (05:14→21:51)
[2017-11-28 06:05] LABS: BASO % 0.4 % (0.0-1.0); EOS # 0.2 10^3/uL (0.0-0.50); HEMATOCRIT 26.9 % (42.0-52.0); HEMOGLOBIN 8.4 g/dl (13.5-17.5); IMMATURE GRANULOCYTE % 0.6 % (0-3.0); LYMPH # 1.2 10^3/uL (1.5-4.5); LYMPH % 12.5 % (24.0-44.0); MEAN CORPUSCULAR HEMOGLOBIN 27.5 pg (27.0-33.0); MEAN CORPUSCULAR HGB CONC 31.2 g/dl (32.0-36.5); MEAN CORPUSCULAR VOLUME 87.9 fl (80.0-96.0); MONO # 0.8 10^3/uL (0.0-0.8); MONO % 8.6 % (0.0-5.0); NEUTROPHILS % 75.9 % (36.0-66.0); PLATELET COUNT, AUTOMATED 372 10^3/uL (150-450); RED BLOOD COUNT 3.06 10^6/uL (4.30-6.10); RED CELL DISTRIBUTION WIDTH 13.2 % (11.5-14.5); WHITE BLOOD COUNT 9.3 10^3/uL (4.0-10.0)
[2017-11-28 06:27] LABS: ALBUMIN 2.1 GM/DL (3.2-5.2); ALBUMIN/GLOBULIN RATIO 0.44 (1.00-1.93); ALKALINE PHOSPHATASE 93 U/L (45-117); ALT/SGPT 81 U/L (12-78); ANION GAP 6 MEQ/L (8-16); AST/SGOT 41 U/L (7-37); BILIRUBIN,TOTAL 0.2 MG/DL (0.2-1.0); BLOOD UREA NITROGEN 26 MG/DL (7-18); CALCIUM LEVEL 8.6 MG/DL (8.8-10.2); CARBON DIOXIDE LEVEL 24 MEQ/L (21-32); CHLORIDE LEVEL 113 MEQ/L (98-107); CREATININE FOR GFR 1.86 MG/DL (0.70-1.30); GLOMERULAR FILTRATION RATE 38.7 (>49); GLUCOSE, FASTING 103 MG/DL (70-100); POTASSIUM SERUM 4.6 MEQ/L (3.5-5.1); SODIUM LEVEL 143 MEQ/L (136-145); TOTAL PROTEIN 6.9 GM/DL (6.4-8.2)
[2017-11-28] MEDS: HumaLOG INSULIN (NovoLOG) PER UNIT SC ×4 (07:30→20:54)
[2017-11-28] MEDS: METOPROLOL SUCC (TopROL XL) 50MG **XL** TAB PO (08:41)
[2017-11-28] MEDS: SENOKOT S TAB PO ×4 (08:41→21:53)
[2017-11-28] MEDS: LACTOBACILLUS ACIDOPHILUS CAP (BACID) PO (08:41)
[2017-11-28] MEDS: DOCUSATE SODIUM 100 MG CAP PO ×4 (08:41→21:50)
[2017-11-28] MEDS: LOPERAMIDE 2 MG CAP PO (08:41)
[2017-11-28] MEDS: VITAMIN D 1,000 INTERNATIONAL UNITS TABLET PO (08:41)
[2017-11-28] MEDS: FERROUS GLUCONATE 324 MG TAB PO (08:42)
[2017-11-28] MEDS: ASPIRIN 81 MG ENTERIC TAB PO (08:42)
[2017-11-28 10:49] LABS: URIC ACID 7.2 MG/DL (3.5-7.2)
[2017-11-28 10:58] LABS: ERYTHROCYTE SEDIMENTATION RATE 126 mm/hr (0-20)
[2017-11-28] MEDS: MEROPENEM INJ 1 GM in APPROPRIATE DILUENT 1 EA IV (12:38)
[2017-11-28 12:39] LABS: BEDSIDE GLUCOSE 121 MG/DL (80-115)
[2017-11-28 17:39] LABS: BEDSIDE GLUCOSE 139 MG/DL (80-115)
[2017-11-28] MEDS: PERCOCET 5MG/325MG TAB PO (17:48)
[2017-11-28 21:12] LABS: BEDSIDE GLUCOSE 177 MG/DL (80-115)
[2017-11-28] MEDS: LEVEMIR (INSULIN DETEMIR) 1 UNITS/0.01ML SC (21:51)
[2017-11-29] MEDS: MEROPENEM INJ 1 GM in APPROPRIATE DILUENT 1 EA IV ×3 (00:43→23:55)
[2017-11-29] MEDS: PERCOCET 5MG/325MG TAB PO ×3 (00:48→10:47)
[2017-11-29] MEDS: SLF 3 ML SYR IV ×3 (05:42→20:43)
[2017-11-29 06:24] LABS: BASO % 0.4 % (0.0-1.0); EOS # 0.2 10^3/uL (0.0-0.50); HEMATOCRIT 27.9 % (42.0-52.0); HEMOGLOBIN 8.8 g/dl (13.5-17.5); IMMATURE GRANULOCYTE % 0.4 % (0-3.0); LYMPH # 1.3 10^3/uL (1.5-4.5); LYMPH % 12.8 % (24.0-44.0); MEAN CORPUSCULAR HEMOGLOBIN 27.8 pg (27.0-33.0); MEAN CORPUSCULAR HGB CONC 31.5 g/dl (32.0-36.5); MEAN CORPUSCULAR VOLUME 88.3 fl (80.0-96.0); MONO # 0.8 10^3/uL (0.0-0.8); MONO % 7.7 % (0.0-5.0); NEUTROPHILS % 76.7 % (36.0-66.0); PLATELET COUNT, AUTOMATED 393 10^3/uL (150-450); RED BLOOD COUNT 3.16 10^6/uL (4.30-6.10); RED CELL DISTRIBUTION WIDTH 13.2 % (11.5-14.5); WHITE BLOOD COUNT 10.4 10^3/uL (4.0-10.0)
[2017-11-29 06:45] LABS: ALBUMIN 2.2 GM/DL (3.2-5.2); ALBUMIN/GLOBULIN RATIO 0.47 (1.00-1.93); ALKALINE PHOSPHATASE 93 U/L (45-117); ALT/SGPT 73 U/L (12-78); ANION GAP 7 MEQ/L (8-16); AST/SGOT 35 U/L (7-37); BILIRUBIN,TOTAL 0.2 MG/DL (0.2-1.0); BLOOD UREA NITROGEN 25 MG/DL (7-18); CALCIUM LEVEL 8.8 MG/DL (8.8-10.2); CARBON DIOXIDE LEVEL 23 MEQ/L (21-32); CHLORIDE LEVEL 112 MEQ/L (98-107); CREATININE FOR GFR 1.71 MG/DL (0.70-1.30); GLOMERULAR FILTRATION RATE 42.6 (>49); GLUCOSE, FASTING 103 MG/DL (70-100); POTASSIUM SERUM 4.5 MEQ/L (3.5-5.1); SODIUM LEVEL 142 MEQ/L (136-145); TOTAL PROTEIN 6.9 GM/DL (6.4-8.2)
[2017-11-29] MEDS: HumaLOG INSULIN (NovoLOG) PER UNIT SC ×4 (07:24→20:43)
[2017-11-29] MEDS: ASPIRIN 81 MG ENTERIC TAB PO (08:31)
[2017-11-29] MEDS: METOPROLOL SUCC (TopROL XL) 50MG **XL** TAB PO (08:31)
[2017-11-29] MEDS: DOCUSATE SODIUM 100 MG CAP PO ×2 (08:31→19:43)
[2017-11-29] MEDS: LACTOBACILLUS ACIDOPHILUS CAP (BACID) PO (08:31)
[2017-11-29] MEDS: VITAMIN D 1,000 INTERNATIONAL UNITS TABLET PO (08:31)
[2017-11-29] MEDS: FERROUS GLUCONATE 324 MG TAB PO (08:31)
[2017-11-29] MEDS: LOPERAMIDE 2 MG CAP PO (08:31)
[2017-11-29] MEDS: SENOKOT S TAB PO ×2 (08:32→19:44)
[2017-11-29] MEDS: predniSONE 20 MG TAB PO ×2 (10:46→20:42)
[2017-11-29] MEDS: FUROSEMIDE 40 MG TAB PO (10:47)
[2017-11-29 12:13] LABS: BEDSIDE GLUCOSE 128 MG/DL (80-115)
[2017-11-29 17:14] LABS: BEDSIDE GLUCOSE 251 MG/DL (80-115)
[2017-11-29 19:52] LABS: BEDSIDE GLUCOSE 324 MG/DL (80-115)
[2017-11-29] MEDS: LEVEMIR (INSULIN DETEMIR) 1 UNITS/0.01ML SC (20:43)
[2017-11-30] MEDS: SLF 3 ML SYR IV ×3 (05:23→21:02)
[2017-11-30 06:23] LABS: BASO % 0.2 % (0.0-1.0); HEMATOCRIT 27.6 % (42.0-52.0); HEMOGLOBIN 8.9 g/dl (13.5-17.5); IMMATURE GRANULOCYTE % 0.5 % (0-3.0); LYMPH # 0.8 10^3/uL (1.5-4.5); LYMPH % 5.9 % (24.0-44.0); MEAN CORPUSCULAR HEMOGLOBIN 27.8 pg (27.0-33.0); MEAN CORPUSCULAR HGB CONC 32.2 g/dl (32.0-36.5); MEAN CORPUSCULAR VOLUME 86.3 fl (80.0-96.0); MONO # 0.3 10^3/uL (0.0-0.8); MONO % 2.4 % (0.0-5.0); NEUTROPHILS # 11.9 10^3/uL (1.8-7.7); PLATELET COUNT, AUTOMATED 431 10^3/uL (150-450)
[2017-11-30 06:44] LABS: ALBUMIN 2.3 GM/DL (3.2-5.2); ALBUMIN/GLOBULIN RATIO 0.43 (1.00-1.93); ALKALINE PHOSPHATASE 103 U/L (45-117); ALT/SGPT 67 U/L (12-78); ANION GAP 6 MEQ/L (8-16); AST/SGOT 26 U/L (7-37); BILIRUBIN,TOTAL 0.2 MG/DL (0.2-1.0); BLOOD UREA NITROGEN 32 MG/DL (7-18); CARBON DIOXIDE LEVEL 22 MEQ/L (21-32); CHLORIDE LEVEL 110 MEQ/L (98-107); CREATININE FOR GFR 1.83 MG/DL (0.70-1.30); GLOMERULAR FILTRATION RATE 39.4 (>49); GLUCOSE, FASTING 186 MG/DL (70-100); POTASSIUM SERUM 5.1 MEQ/L (3.5-5.1); SODIUM LEVEL 138 MEQ/L (136-145); TOTAL PROTEIN 7.6 GM/DL (6.4-8.2)
[2017-11-30] MEDS: LACTOBACILLUS ACIDOPHILUS CAP (BACID) PO (08:13)
[2017-11-30] MEDS: LOPERAMIDE 2 MG CAP PO (08:13)
[2017-11-30] MEDS: FERROUS GLUCONATE 324 MG TAB PO (08:13)
[2017-11-30] MEDS: VITAMIN D 1,000 INTERNATIONAL UNITS TABLET PO (08:13)
[2017-11-30] MEDS: METOPROLOL SUCC (TopROL XL) 50MG **XL** TAB PO (08:13)
[2017-11-30] MEDS: HumaLOG INSULIN (NovoLOG) PER UNIT SC ×4 (08:13→21:00)
[2017-11-30] MEDS: ASPIRIN 81 MG ENTERIC TAB PO (08:13)
[2017-11-30] MEDS: SENOKOT S TAB PO ×2 (08:14→21:01)
[2017-11-30] MEDS: predniSONE 20 MG TAB PO ×2 (08:14→21:01)
[2017-11-30] MEDS: DOCUSATE SODIUM 100 MG CAP PO ×2 (08:14→21:01)
[2017-11-30] MEDS: FUROSEMIDE 40 MG TAB PO (08:14)
[2017-11-30] MEDS: MEROPENEM INJ 1 GM in APPROPRIATE DILUENT 1 EA IV ×2 (12:34→23:07)
[2017-11-30 12:38] LABS: BEDSIDE GLUCOSE 214 MG/DL (80-115)
[2017-11-30 18:01] LABS: BEDSIDE GLUCOSE 195 MG/DL (80-115)
[2017-11-30 20:52] LABS: BEDSIDE GLUCOSE 248 MG/DL (80-115)
[2017-11-30] MEDS: LEVEMIR (INSULIN DETEMIR) 1 UNITS/0.01ML SC (21:02)
[2017-12-01] MEDS: SLF 3 ML SYR IV ×3 (05:25→20:52)
[2017-12-01 05:32] LABS: BASO % 0.1 % (0.0-1.0); HEMATOCRIT 28.2 % (42.0-52.0); HEMOGLOBIN 9.2 g/dl (13.5-17.5); IMMATURE GRANULOCYTE % 0.4 % (0-3.0); LYMPH # 0.9 10^3/uL (1.5-4.5); LYMPH % 6.4 % (24.0-44.0); MEAN CORPUSCULAR HEMOGLOBIN 27.8 pg (27.0-33.0); MEAN CORPUSCULAR HGB CONC 32.6 g/dl (32.0-36.5); MEAN CORPUSCULAR VOLUME 85.2 fl (80.0-96.0); MONO # 0.5 10^3/uL (0.0-0.8); MONO % 3.4 % (0.0-5.0); NEUTROPHILS # 12.1 10^3/uL (1.8-7.7); NEUTROPHILS % 89.7 % (36.0-66.0); PLATELET COUNT, AUTOMATED 451 10^3/uL (150-450); RED BLOOD COUNT 3.31 10^6/uL (4.30-6.10); RED CELL DISTRIBUTION WIDTH 13.1 % (11.5-14.5); WHITE BLOOD COUNT 13.6 10^3/uL (4.0-10.0)
[2017-12-01 05:56] LABS: ALBUMIN 2.3 GM/DL (3.2-5.2); ALBUMIN/GLOBULIN RATIO 0.46 (1.00-1.93); ALKALINE PHOSPHATASE 96 U/L (45-117); ALT/SGPT 72 U/L (12-78); ANION GAP 7 MEQ/L (8-16); AST/SGOT 36 U/L (7-37); BILIRUBIN,TOTAL 0.1 MG/DL (0.2-1.0); BLOOD UREA NITROGEN 40 MG/DL (7-18); CALCIUM LEVEL 9.4 MG/DL (8.8-10.2); CARBON DIOXIDE LEVEL 24 MEQ/L (21-32); CHLORIDE LEVEL 109 MEQ/L (98-107); CREATININE FOR GFR 2.09 MG/DL (0.70-1.30); GLOMERULAR FILTRATION RATE 33.8 (>49); GLUCOSE, FASTING 226 MG/DL (70-100); POTASSIUM SERUM 4.8 MEQ/L (3.5-5.1); SODIUM LEVEL 140 MEQ/L (136-145); TOTAL PROTEIN 7.3 GM/DL (6.4-8.2)
[2017-12-01] MEDS: METOPROLOL SUCC (TopROL XL) 50MG **XL** TAB PO (08:20)
[2017-12-01] MEDS: VITAMIN D 1,000 INTERNATIONAL UNITS TABLET PO (08:20)
[2017-12-01] MEDS: HumaLOG INSULIN (NovoLOG) PER UNIT SC ×4 (08:20→20:59)
[2017-12-01] MEDS: LOPERAMIDE 2 MG CAP PO (08:21)
[2017-12-01] MEDS: ASPIRIN 81 MG ENTERIC TAB PO (08:21)
[2017-12-01] MEDS: LACTOBACILLUS ACIDOPHILUS CAP (BACID) PO (08:21)
[2017-12-01] MEDS: DOCUSATE SODIUM 100 MG CAP PO ×3 (08:21→20:51)
[2017-12-01] MEDS: SENOKOT S TAB PO ×3 (08:21→20:51)
[2017-12-01] MEDS: FUROSEMIDE 40 MG TAB PO (08:21)
[2017-12-01] MEDS: predniSONE 20 MG TAB PO ×2 (08:21→20:50)
[2017-12-01] MEDS: FERROUS GLUCONATE 324 MG TAB PO (08:21)
[2017-12-01] MEDS: DARBEPOETIN 100 MCG/0.5 ML *NON-DIALYSIS* SYRINGE (J0881) SC (11:37)
[2017-12-01] MEDS: DAKIN'S 0.25% HALF-STRENGTH SOLN 480 ML TOP ×2 (11:38→20:52)
[2017-12-01] MEDS: MEROPENEM INJ 1 GM in APPROPRIATE DILUENT 1 EA IV ×2 (12:19→23:41)
[2017-12-01 12:33] LABS: BEDSIDE GLUCOSE 178 MG/DL (80-115)
[2017-12-01 16:49] LABS: BEDSIDE GLUCOSE 293 MG/DL (80-115)
[2017-12-01] MEDS: LEVEMIR (INSULIN DETEMIR) 1 UNITS/0.01ML SC (20:51)
[2017-12-01 21:08] LABS: BEDSIDE GLUCOSE 324 MG/DL (80-115)
[2017-12-02] MEDS: SLF 3 ML SYR IV ×3 (05:03→21:13)
[2017-12-02 05:55] LABS: BASO % 0.2 % (0.0-1.0); HEMOGLOBIN 9.5 g/dl (13.5-17.5); IMMATURE GRANULOCYTE % 0.3 % (0-3.0); LYMPH # 0.9 10^3/uL (1.5-4.5); LYMPH % 7.4 % (24.0-44.0); MEAN CORPUSCULAR HEMOGLOBIN 27.9 pg (27.0-33.0); MEAN CORPUSCULAR HGB CONC 32.8 g/dl (32.0-36.5); MEAN CORPUSCULAR VOLUME 85.3 fl (80.0-96.0); MONO # 0.4 10^3/uL (0.0-0.8); MONO % 3.3 % (0.0-5.0); NEUTROPHILS # 10.7 10^3/uL (1.8-7.7); NEUTROPHILS % 88.8 % (36.0-66.0); PLATELET COUNT, AUTOMATED 463 10^3/uL (150-450); RED CELL DISTRIBUTION WIDTH 13.2 % (11.5-14.5)
[2017-12-02 06:24] LABS: ALBUMIN 2.4 GM/DL (3.2-5.2); ALBUMIN/GLOBULIN RATIO 0.51 (1.00-1.93); ALKALINE PHOSPHATASE 87 U/L (45-117); ALT/SGPT 85 U/L (12-78); ANION GAP 9 MEQ/L (8-16); AST/SGOT 37 U/L (7-37); BILIRUBIN,TOTAL 0.1 MG/DL (0.2-1.0); BLOOD UREA NITROGEN 45 MG/DL (7-18); CALCIUM LEVEL 9.6 MG/DL (8.8-10.2); CARBON DIOXIDE LEVEL 25 MEQ/L (21-32); CHLORIDE LEVEL 107 MEQ/L (98-107); CREATININE FOR GFR 1.78 MG/DL (0.70-1.30); GLOMERULAR FILTRATION RATE 40.7 (>49); GLUCOSE, FASTING 180 MG/DL (70-100); POTASSIUM SERUM 4.7 MEQ/L (3.5-5.1); SODIUM LEVEL 141 MEQ/L (136-145); TOTAL PROTEIN 7.1 GM/DL (6.4-8.2)
[2017-12-02] MEDS: HumaLOG INSULIN (NovoLOG) PER UNIT SC ×4 (08:10→20:51)
[2017-12-02] MEDS: SENOKOT S TAB PO ×2 (08:11→19:30)
[2017-12-02] MEDS: DOCUSATE SODIUM 100 MG CAP PO ×2 (08:11→19:29)
[2017-12-02] MEDS: LACTOBACILLUS ACIDOPHILUS CAP (BACID) PO (08:11)
[2017-12-02] MEDS: ASPIRIN 81 MG ENTERIC TAB PO (08:11)
[2017-12-02] MEDS: VITAMIN D 1,000 INTERNATIONAL UNITS TABLET PO (08:12)
[2017-12-02] MEDS: FUROSEMIDE 40 MG TAB PO (08:12)
[2017-12-02] MEDS: METOPROLOL SUCC (TopROL XL) 50MG **XL** TAB PO (08:12)
[2017-12-02] MEDS: LOPERAMIDE 2 MG CAP PO (08:15)
[2017-12-02] MEDS: FERROUS GLUCONATE 324 MG TAB PO (08:15)
[2017-12-02] MEDS: DAKIN'S 0.25% HALF-STRENGTH SOLN 480 ML TOP ×2 (08:16→21:13)
[2017-12-02 12:11] LABS: BEDSIDE GLUCOSE 201 MG/DL (80-115)
[2017-12-02] MEDS: MEROPENEM INJ 1 GM in APPROPRIATE DILUENT 1 EA IV (12:39)
[2017-12-02 17:13] LABS: BEDSIDE GLUCOSE 220 MG/DL (80-115)
[2017-12-02 20:19] LABS: BEDSIDE GLUCOSE 239 MG/DL (80-115)
[2017-12-02] MEDS: LEVEMIR (INSULIN DETEMIR) 1 UNITS/0.01ML SC (21:12)
[2017-12-03] MEDS: MEROPENEM INJ 1 GM in APPROPRIATE DILUENT 1 EA IV ×2 (00:06→12:37)
[2017-12-03 05:35] LABS: BASO # 0.1 10^3/uL (0.0-0.2); BASO % 0.9 % (0.0-1.0); EOS # 0.1 10^3/uL (0.0-0.50); EOS % 1.1 % (0.0-3.0); HEMATOCRIT 30.9 % (42.0-52.0); IMMATURE GRANULOCYTE % 0.4 % (0-3.0); LYMPH # 3.2 10^3/uL (1.5-4.5); LYMPH % 24.9 % (24.0-44.0); MEAN CORPUSCULAR HGB CONC 32.4 g/dl (32.0-36.5); MEAN CORPUSCULAR VOLUME 86.6 fl (80.0-96.0); MONO # 1.1 10^3/uL (0.0-0.8); MONO % 8.6 % (0.0-5.0); NEUTROPHILS # 8.2 10^3/uL (1.8-7.7); NEUTROPHILS % 64.1 % (36.0-66.0); PLATELET COUNT, AUTOMATED 495 10^3/uL (150-450); RED BLOOD COUNT 3.57 10^6/uL (4.30-6.10); RED CELL DISTRIBUTION WIDTH 13.4 % (11.5-14.5); WHITE BLOOD COUNT 12.8 10^3/uL (4.0-10.0)
[2017-12-03 05:54] LABS: ALBUMIN 2.5 GM/DL (3.2-5.2); ALBUMIN/GLOBULIN RATIO 0.53 (1.00-1.93); ALKALINE PHOSPHATASE 85 U/L (45-117); ALT/SGPT 78 U/L (12-78); ANION GAP 8 MEQ/L (8-16); AST/SGOT 33 U/L (7-37); BILIRUBIN,TOTAL 0.1 MG/DL (0.2-1.0); BLOOD UREA NITROGEN 51 MG/DL (7-18); CARBON DIOXIDE LEVEL 25 MEQ/L (21-32); CHLORIDE LEVEL 108 MEQ/L (98-107); CREATININE FOR GFR 1.76 MG/DL (0.70-1.30); GLOMERULAR FILTRATION RATE 41.2 (>49); GLUCOSE, FASTING 53 MG/DL (70-100); POTASSIUM SERUM 3.9 MEQ/L (3.5-5.1); SODIUM LEVEL 141 MEQ/L (136-145); TOTAL PROTEIN 7.2 GM/DL (6.4-8.2)
[2017-12-03] MEDS: NS 1,000 ML IV (06:00)
[2017-12-03] MEDS: SLF 3 ML SYR IV ×3 (06:00→21:08)
[2017-12-03 07:25] LABS: BEDSIDE GLUCOSE 97 MG/DL (80-115)
[2017-12-03] MEDS: HumaLOG INSULIN (NovoLOG) PER UNIT SC ×4 (07:30→20:21)
[2017-12-03] MEDS: FUROSEMIDE 40 MG TAB PO (08:04)
[2017-12-03] MEDS: VITAMIN D 1,000 INTERNATIONAL UNITS TABLET PO (08:05)
[2017-12-03] MEDS: LOPERAMIDE 2 MG CAP PO (08:05)
[2017-12-03] MEDS: LACTOBACILLUS ACIDOPHILUS CAP (BACID) PO (08:05)
[2017-12-03] MEDS: ASPIRIN 81 MG ENTERIC TAB PO (08:06)
[2017-12-03] MEDS: METOPROLOL SUCC (TopROL XL) 50MG **XL** TAB PO (08:06)
[2017-12-03] MEDS: FERROUS GLUCONATE 324 MG TAB PO (08:06)
[2017-12-03] MEDS: D5W/0.9% SODIUM CHLORIDE 1,000 ML IV (08:07)
[2017-12-03] MEDS: DAKIN'S 0.25% HALF-STRENGTH SOLN 480 ML TOP ×2 (08:08→20:21)
[2017-12-03] MEDS: DOCUSATE SODIUM 100 MG CAP PO ×2 (08:09→19:46)
[2017-12-03] MEDS: SENOKOT S TAB PO ×2 (08:09→19:46)
[2017-12-03 09:58] LABS: BEDSIDE GLUCOSE 85 MG/DL (80-115)
[2017-12-03 12:38] LABS: BEDSIDE GLUCOSE 83 MG/DL (80-115)
[2017-12-03] MEDS ORDERED: LIDOCAINE 2% INJ 100 MG/5 ML SDV (FOR ANES.) As Ordered (15:32)
[2017-12-03] MEDS ORDERED: PROPOFOL 500 MG/50 ML VIAL As Ordered (15:33)
[2017-12-03] MEDS: LIDOCAINE 1% SDV INJ 30 ML VIAL As Ordered (17:15)
[2017-12-03] MEDS: BUPIVACAINE HCL 0.5% 30 ML VIAL As Ordered (17:15)
[2017-12-03] MEDS: LIDOCAINE 1% MDV 20ML VIAL As Ordered (17:17)
[2017-12-03] MEDS: BUPIVACAINE HCL 0.5% 10 ML VIAL As Ordered (17:17)
[2017-12-03] MEDS ORDERED: fentaNYL 100 MCG/2 ML INJECTION (J3010) As Ordered (18:07)
[2017-12-03] MEDS: fentaNYL 100 MCG/2 ML INJECTION (J3010) IV (18:10)
[2017-12-03] MEDS: LR 1,000 ML IV (18:15)
[2017-12-03] MEDS ORDERED: ONDANSETRON 4MG/2ML VIAL (J2405) IV (18:15)
[2017-12-03 20:12] LABS: BEDSIDE GLUCOSE 178 MG/DL (80-115)
[2017-12-03] MEDS: LEVEMIR (INSULIN DETEMIR) 1 UNITS/0.01ML SC (21:08)
[2017-12-03] MEDS: PERCOCET 5MG/325MG TAB PO (22:05)
[2017-12-04] MEDS: MEROPENEM INJ 1 GM in APPROPRIATE DILUENT 1 EA IV ×3 (00:31→23:38)
[2017-12-04] MEDS: PERCOCET 5MG/325MG TAB PO ×3 (04:18→21:40)
[2017-12-04 04:37] LABS: BEDSIDE GLUCOSE 129 MG/DL (80-115)
[2017-12-04] MEDS: SLF 3 ML SYR IV ×4 (05:26→21:40)
[2017-12-04 05:47] LABS: BASO # 0.1 10^3/uL (0.0-0.2); BASO % 0.6 % (0.0-1.0); EOS # 0.2 10^3/uL (0.0-0.50); EOS % 1.6 % (0.0-3.0); HEMOGLOBIN 9.3 g/dl (13.5-17.5); IMMATURE GRANULOCYTE % 0.8 % (0-3.0); LYMPH # 1.1 10^3/uL (1.5-4.5); LYMPH % 10.4 % (24.0-44.0); MEAN CORPUSCULAR HEMOGLOBIN 28.2 pg (27.0-33.0); MEAN CORPUSCULAR HGB CONC 32.1 g/dl (32.0-36.5); MEAN CORPUSCULAR VOLUME 87.9 fl (80.0-96.0); MONO # 0.9 10^3/uL (0.0-0.8); MONO % 8.4 % (0.0-5.0); NEUTROPHILS # 8.1 10^3/uL (1.8-7.7); NEUTROPHILS % 78.2 % (36.0-66.0); PLATELET COUNT, AUTOMATED 380 10^3/uL (150-450); RED CELL DISTRIBUTION WIDTH 13.8 % (11.5-14.5); WHITE BLOOD COUNT 10.3 10^3/uL (4.0-10.0)
[2017-12-04 06:07] LABS: ALBUMIN 2.3 GM/DL (3.2-5.2); ALBUMIN/GLOBULIN RATIO 0.58 (1.00-1.93); ALKALINE PHOSPHATASE 82 U/L (45-117); ALT/SGPT 57 U/L (12-78); ANION GAP 6 MEQ/L (8-16); AST/SGOT 18 U/L (7-37); BILIRUBIN,TOTAL 0.2 MG/DL (0.2-1.0); BLOOD UREA NITROGEN 49 MG/DL (7-18); CALCIUM LEVEL 8.3 MG/DL (8.8-10.2); CARBON DIOXIDE LEVEL 25 MEQ/L (21-32); CHLORIDE LEVEL 111 MEQ/L (98-107); CREATININE FOR GFR 1.84 MG/DL (0.70-1.30); GLOMERULAR FILTRATION RATE 39.1 (>49); GLUCOSE, FASTING 133 MG/DL (70-100); POTASSIUM SERUM 3.9 MEQ/L (3.5-5.1); SODIUM LEVEL 142 MEQ/L (136-145); TOTAL PROTEIN 6.3 GM/DL (6.4-8.2)
[2017-12-04] MEDS: HumaLOG INSULIN (NovoLOG) PER UNIT SC ×4 (08:41→21:00)
[2017-12-04] MEDS: METOPROLOL SUCC (TopROL XL) 50MG **XL** TAB PO (08:42)
[2017-12-04] MEDS: VITAMIN D 1,000 INTERNATIONAL UNITS TABLET PO (08:42)
[2017-12-04] MEDS: LACTOBACILLUS ACIDOPHILUS CAP (BACID) PO (08:42)
[2017-12-04] MEDS: ASPIRIN 81 MG ENTERIC TAB PO (08:42)
[2017-12-04] MEDS: FUROSEMIDE 40 MG TAB PO (08:42)
[2017-12-04] MEDS: FERROUS GLUCONATE 324 MG TAB PO (08:43)
[2017-12-04] MEDS: LOPERAMIDE 2 MG CAP PO (08:43)
[2017-12-04] MEDS: DOCUSATE SODIUM 100 MG CAP PO (08:45)
[2017-12-04] MEDS: DAKIN'S 0.25% HALF-STRENGTH SOLN 480 ML TOP (08:46)
[2017-12-04] MEDS: SENOKOT S TAB PO (08:46)
[2017-12-04 12:53] LABS: BEDSIDE GLUCOSE 148 MG/DL (80-115)
[2017-12-04 17:34] LABS: BEDSIDE GLUCOSE 193 MG/DL (80-115)
[2017-12-04 21:24] LABS: BEDSIDE GLUCOSE 165 MG/DL (80-115)
[2017-12-04] MEDS: LEVEMIR (INSULIN DETEMIR) 1 UNITS/0.01ML SC (21:40)
[2017-12-05] MEDS: SLF 3 ML SYR IV ×3 (05:24→21:54)
[2017-12-05] MEDS: PERCOCET 5MG/325MG TAB PO ×3 (05:24→21:52)
[2017-12-05 06:29] LABS: ANION GAP 7 MEQ/L (8-16); BLOOD UREA NITROGEN 52 MG/DL (7-18); CALCIUM LEVEL 8.1 MG/DL (8.8-10.2); CARBON DIOXIDE LEVEL 25 MEQ/L (21-32); CHLORIDE LEVEL 111 MEQ/L (98-107); CREATININE FOR GFR 1.89 MG/DL (0.70-1.30); GLOMERULAR FILTRATION RATE 37.9 (>49); GLUCOSE, FASTING 75 MG/DL (70-100); POTASSIUM SERUM 3.8 MEQ/L (3.5-5.1); SODIUM LEVEL 143 MEQ/L (136-145)
[2017-12-05] MEDS: HumaLOG INSULIN (NovoLOG) PER UNIT SC ×4 (07:30→21:00)
[2017-12-05 08:27] LABS: BEDSIDE GLUCOSE 95 MG/DL (80-115)
[2017-12-05] MEDS: FERROUS GLUCONATE 324 MG TAB PO (09:07)
[2017-12-05] MEDS: ASPIRIN 81 MG ENTERIC TAB PO (09:07)
[2017-12-05] MEDS: METOPROLOL SUCC (TopROL XL) 50MG **XL** TAB PO (09:08)
[2017-12-05] MEDS: LOPERAMIDE 2 MG CAP PO (09:08)
[2017-12-05] MEDS: FUROSEMIDE 40 MG TAB PO (09:09)
[2017-12-05] MEDS: LACTOBACILLUS ACIDOPHILUS CAP (BACID) PO (09:09)
[2017-12-05] MEDS: VITAMIN D 1,000 INTERNATIONAL UNITS TABLET PO (09:10)
[2017-12-05 11:45] LABS: BEDSIDE GLUCOSE 208 MG/DL (80-115)
[2017-12-05 11:45] LABS: BEDSIDE GLUCOSE 168 MG/DL (80-115)
[2017-12-05] MEDS: MEROPENEM INJ 1 GM in APPROPRIATE DILUENT 1 EA IV (12:16)
[2017-12-05 17:20] LABS: BEDSIDE GLUCOSE 148 MG/DL (80-115)
[2017-12-05 20:49] LABS: BEDSIDE GLUCOSE 234 MG/DL (80-115)
[2017-12-05] MEDS: LEVEMIR (INSULIN DETEMIR) 1 UNITS/0.01ML SC (21:51)
[2017-12-06] MEDS: MEROPENEM INJ 1 GM in APPROPRIATE DILUENT 1 EA IV ×2 (00:33→12:39)
[2017-12-06] MEDS: SLF 3 ML SYR IV ×4 (05:54→22:10)
[2017-12-06] MEDS: HumaLOG INSULIN (NovoLOG) PER UNIT SC ×4 (07:30→21:00)
[2017-12-06] MEDS: LACTOBACILLUS ACIDOPHILUS CAP (BACID) PO (09:48)
[2017-12-06] MEDS: LOPERAMIDE 2 MG CAP PO (09:49)
[2017-12-06] MEDS: FERROUS GLUCONATE 324 MG TAB PO (09:49)
[2017-12-06] MEDS: ASPIRIN 81 MG ENTERIC TAB PO (09:49)
[2017-12-06] MEDS: METOPROLOL SUCC (TopROL XL) 50MG **XL** TAB PO (09:50)
[2017-12-06] MEDS: VITAMIN D 1,000 INTERNATIONAL UNITS TABLET PO (09:50)
[2017-12-06] MEDS: FUROSEMIDE 40 MG TAB PO (09:50)
[2017-12-06 12:01] LABS: BEDSIDE GLUCOSE 136 MG/DL (80-115)
[2017-12-06 17:21] LABS: BEDSIDE GLUCOSE 275 MG/DL (80-115)
[2017-12-06 20:41] LABS: BEDSIDE GLUCOSE 113 MG/DL (80-115)
[2017-12-06] MEDS: LEVEMIR (INSULIN DETEMIR) 1 UNITS/0.01ML SC (22:12)
[2017-12-07] MEDS: MEROPENEM INJ 1 GM in APPROPRIATE DILUENT 1 EA IV ×2 (00:53→12:46)
[2017-12-07 01:03] LABS: BEDSIDE GLUCOSE 141 MG/DL (80-115)
[2017-12-07] MEDS: SLF 3 ML SYR IV ×3 (06:00→20:35)
[2017-12-07 06:44] LABS: BEDSIDE GLUCOSE 106 MG/DL (80-115)
[2017-12-07] MEDS: HumaLOG INSULIN (NovoLOG) PER UNIT SC ×4 (07:30→20:34)
[2017-12-07] MEDS: VITAMIN D 1,000 INTERNATIONAL UNITS TABLET PO (09:50)
[2017-12-07] MEDS: LOPERAMIDE 2 MG CAP PO (09:50)
[2017-12-07] MEDS: LACTOBACILLUS ACIDOPHILUS CAP (BACID) PO (09:50)
[2017-12-07] MEDS: FUROSEMIDE 40 MG TAB PO (09:51)
[2017-12-07] MEDS: FERROUS GLUCONATE 324 MG TAB PO (09:51)
[2017-12-07] MEDS: ASPIRIN 81 MG ENTERIC TAB PO (09:51)
[2017-12-07] MEDS: METOPROLOL SUCC (TopROL XL) 50MG **XL** TAB PO (09:51)
[2017-12-07 10:34] LABS: BEDSIDE GLUCOSE 80 MG/DL (80-115)
[2017-12-07 10:34] LABS: BEDSIDE GLUCOSE 50 MG/DL (80-115)
[2017-12-07 11:37] LABS: BEDSIDE GLUCOSE 150 MG/DL (80-115)
[2017-12-07] MEDS: PERCOCET 5MG/325MG TAB PO (12:03)
[2017-12-07 16:50] LABS: BEDSIDE GLUCOSE 166 MG/DL (80-115)
[2017-12-07] MEDS: LEVEMIR (INSULIN DETEMIR) 1 UNITS/0.01ML SC (20:35)
[2017-12-07 20:58] LABS: BEDSIDE GLUCOSE 143 MG/DL (80-115)
[2017-12-08] MEDS: MEROPENEM INJ 1 GM in APPROPRIATE DILUENT 1 EA IV ×2 (00:11→12:38)
[2017-12-08] MEDS: SLF 3 ML SYR IV ×2 (05:04→14:00)
[2017-12-08 05:44] LABS: BEDSIDE GLUCOSE 68 MG/DL (80-115)
[2017-12-08 05:44] LABS: BEDSIDE GLUCOSE 119 MG/DL (80-115)
[2017-12-08 05:44] LABS: BEDSIDE GLUCOSE 49 MG/DL (80-115)
[2017-12-08] MEDS: HumaLOG INSULIN (NovoLOG) PER UNIT SC ×2 (07:30→12:38)
[2017-12-08] MEDS: VITAMIN D 1,000 INTERNATIONAL UNITS TABLET PO (10:02)
[2017-12-08] MEDS: LOPERAMIDE 2 MG CAP PO (10:02)
[2017-12-08] MEDS: FUROSEMIDE 40 MG TAB PO (10:02)
[2017-12-08] MEDS: LACTOBACILLUS ACIDOPHILUS CAP (BACID) PO (10:02)
[2017-12-08] MEDS: FERROUS GLUCONATE 324 MG TAB PO (10:03)
[2017-12-08] MEDS: ASPIRIN 81 MG ENTERIC TAB PO (10:03)
[2017-12-08] MEDS: METOPROLOL SUCC (TopROL XL) 50MG **XL** TAB PO (10:03)
[2017-12-08 11:53] LABS: BEDSIDE GLUCOSE 152 MG/DL (80-115)
[2017-12-08] MEDS: DARBEPOETIN 100 MCG/0.5 ML *NON-DIALYSIS* SYRINGE (J0881) SC (12:38)
[2017-12-08] MEDS ORDERED: LEVEMIR (INSULIN DETEMIR) 1 UNITS/0.01ML SC (21:00)
== END 2017-12-08 16:40 | disposition home health service (06) | DRG 854 ==
LOC: M MS5PR 11-27 21:07 → M MSPAV 11:40 → M PCU 11-20 16:32 → M MS5PR 11-28 11:14 → M ICU 19:31
PROVIDERS: Surgery Vascular Surgery
PROC: 0Y6M0ZB Detachment at Right Foot, Partial 2nd Ray, Open Approach (ICD-10-PCS; principal; 2017-11-19 17:20)
PROC: 0Y6M0ZC Detachment at Right Foot, Partial 3rd Ray, Open Approach (ICD-10-PCS; 2017-11-19 17:20)
PROC: 0KBV0ZZ Excision of Right Foot Muscle, Open Approach (ICD-10-PCS; 2017-11-19 17:53)
PROC: 0KBV0ZZ Excision of Right Foot Muscle, Open Approach (ICD-10-PCS; 2017-11-19 17:53)
PROC: 0Y6M0Z5 Detachment at Right Foot, Complete 2nd Ray, Open Approach (ICD-10-PCS; 2017-11-19 17:53)
PROC: 0Y6M0Z6 Detachment at Right Foot, Complete 3rd Ray, Open Approach (ICD-10-PCS; 2017-11-19 17:53)
PROC: 0Y6M0Z7 Detachment at Right Foot, Complete 4th Ray, Open Approach (ICD-10-PCS; 2017-11-19 17:53)
DX: A41.9 Sepsis, unspecified organism (principal); I70.261 Atherosclerosis of native arteries of extremities with gangrene, right leg; N17.9 Acute kidney failure, unspecified; I69.954 Hemiplegia and hemiparesis following unspecified cerebrovascular disease affecting left non-dominant side; E11.52 Type 2 diabetes mellitus with diabetic peripheral angiopathy with gangrene; E87.2 Acidosis; L03.115 Cellulitis of right lower limb; R65.20 Severe sepsis without septic shock; N18.3 Chronic kidney disease, stage 3 (moderate); E87.5 Hyperkalemia; E78.5 Hyperlipidemia, unspecified; M19.90 Unspecified osteoarthritis, unspecified site; K21.9 Gastro-esophageal reflux disease without esophagitis; E86.0 Dehydration; D63.1 Anemia in chronic kidney disease; Z79.4 Long term (current) use of insulin; Z79.899 Other long term (current) drug therapy; Z79.82 Long term (current) use of aspirin; I12.9 Hypertensive chronic kidney disease with stage 1 through stage 4 chronic kidney disease, or unspecified chronic kidney disease

== ENCOUNTER → 2017-12-16 | Outpatient (CLI) | payer OTHER | END | disposition home or self-care (01) | LOC: M IRPRO 06:20 | DX: I70.249 Atherosclerosis of native arteries of left leg with ulceration of unspecified site (principal); L97.929 Non-pressure chronic ulcer of unspecified part of left lower leg with unspecified severity; E11.22 Type 2 diabetes mellitus with diabetic chronic kidney disease; N18.9 Chronic kidney disease, unspecified | CPT/HCPCS: 36247 ==

== ENCOUNTER → 2017-12-26 | Outpatient (REF) | payer OTHER ==
[2017-12-26 12:52] LABS: ANION GAP 7 MEQ/L (8-16); BLOOD UREA NITROGEN 26 MG/DL (7-18); CALCIUM LEVEL 8.6 MG/DL (8.8-10.2); CARBON DIOXIDE LEVEL 29 MEQ/L (21-32); CHLORIDE LEVEL 106 MEQ/L (98-107); CREATININE FOR GFR 2.26 MG/DL (0.70-1.30); GLOMERULAR FILTRATION RATE 30.9 (>49); GLUCOSE, FASTING 114 MG/DL (70-100); POTASSIUM SERUM 4.4 MEQ/L (3.5-5.1); SODIUM LEVEL 142 MEQ/L (136-145)
== END ==
LOC: M LABDRAWC 11:54
DX: I70.261 Atherosclerosis of native arteries of extremities with gangrene, right leg (principal); I70.292 Other atherosclerosis of native arteries of extremities, left leg; I70.238 Atherosclerosis of native arteries of right leg with ulceration of other part of lower leg

== ENCOUNTER 2017-12-29 03:04 | Inpatient (IN) | payer OTHER ==
[2017-12-29] MEDS: NS 1,000 ML IV ×3 (05:30→21:21)
[2017-12-29 05:52] LABS: KETONE, URINE AUTO RFX NEGATIVE (NEGATIVE); LEUKOCYTE ESTERASE UR AUTO RFX NEGATIVE (NEGATIVE); NITRITE, URINE AUTO RFX NEGATIVE (NEGATIVE); RBC, URINE AUTO RFX 3 /HPF (0-3); SPECIFIC GRAVITY UR AUTO RFX 1.011 (1.002-1.035); SQUAM EPITHELIAL CELL UR AURFX 1 /HPF (0-6); WBC, URINE AUTO RFX 1 /HPF (0-3)
[2017-12-29 05:59] LABS: BASO % 0.4 % (0.0-1.0); EOS # 0.2 10^3/uL (0.0-0.50); EOS % 2.1 % (0.0-3.0); HEMATOCRIT 29.6 % (42.0-52.0); HEMOGLOBIN 9.2 g/dl (13.5-17.5); IMMATURE GRANULOCYTE % 0.7 % (0-3.0); LYMPH # 1.3 10^3/uL (1.5-4.5); LYMPH % 14.8 % (24.0-44.0); MEAN CORPUSCULAR HEMOGLOBIN 26.9 pg (27.0-33.0); MEAN CORPUSCULAR HGB CONC 31.1 g/dl (32.0-36.5); MEAN CORPUSCULAR VOLUME 86.5 fl (80.0-96.0); MONO # 0.7 10^3/uL (0.0-0.8); MONO % 8.3 % (0.0-5.0); NEUTROPHILS # 6.3 10^3/uL (1.8-7.7); NEUTROPHILS % 73.7 % (36.0-66.0); PLATELET COUNT, AUTOMATED 298 10^3/uL (150-450); RED BLOOD COUNT 3.42 10^6/uL (4.30-6.10); RED CELL DISTRIBUTION WIDTH 14.5 % (11.5-14.5); WHITE BLOOD COUNT 8.5 10^3/uL (4.0-10.0)
[2017-12-29 06:17] LABS: INR 1.09; PROTHROMBIN TIME 14.3 SECONDS (12.4-14.5)
[2017-12-29 06:18] LABS: PARTIAL THROMBOPLASTIN TIME 33.9 SECONDS (26.8-37.9)
[2017-12-29 06:27] LABS: ALBUMIN 2.8 GM/DL (3.2-5.2); ALBUMIN/GLOBULIN RATIO 0.72 (1.00-1.93); ALKALINE PHOSPHATASE 116 U/L (45-117); ALT/SGPT 33 U/L (12-78); ANION GAP 9 MEQ/L (8-16); AST/SGOT 22 U/L (7-37); BILIRUBIN,DIRECT 0.1 MG/DL (0.0-0.2); BILIRUBIN,TOTAL 0.3 MG/DL (0.2-1.0); BLOOD UREA NITROGEN 30 MG/DL (7-18); CALCIUM LEVEL 8.3 MG/DL (8.8-10.2); CARBON DIOXIDE LEVEL 25 MEQ/L (21-32); CHLORIDE LEVEL 109 MEQ/L (98-107); CPK CREATINE PHOSPHOKINASE 74 U/L (39-308); CREATININE FOR GFR 2.57 MG/DL (0.70-1.30); GLOMERULAR FILTRATION RATE 26.6 (>49); GLUCOSE, FASTING 106 MG/DL (70-100); LIPASE 71 U/L (73-393); POTASSIUM SERUM 4.4 MEQ/L (3.5-5.1); SODIUM LEVEL 143 MEQ/L (136-145); TOTAL PROTEIN 6.7 GM/DL (6.4-8.2); TROPONIN I < 0.02 NG/ML (< 0.10)
[2017-12-29 06:28] LABS: LACTIC ACID SEPSIS PROTOCOL 1.1 MMOL/L (0.4-2.0)
[2017-12-29 06:28] LABS: CK-MB VALUE MASS 2.1 NG/ML (<3.6); MB/CK RELATIVE INDEX 2.83 (< OR =4)
[2017-12-29 06:48] LABS: C REACTIVE PROTEIN QUANTITATIV 2.99 MG/DL (0.00-0.30)
[2017-12-29] MEDS: HumaLOG INSULIN (NovoLOG) PER UNIT SC ×4 (07:30→20:09)
[2017-12-29] MEDS ORDERED: GLUCOSE 4 GM CHEW TABLET PO (08:15)
[2017-12-29] MEDS ORDERED: DEXTROSE 50% 50 ML SYRINGE IV (08:15)
[2017-12-29] MEDS ORDERED: GLUCAGON FOR INJ 1 MG VIAL (J1610) SC (08:15)
[2017-12-29] MEDS: ASPIRIN 81 MG ENTERIC TAB PO (08:59)
[2017-12-29] MEDS ORDERED: METOPROLOL TART 25 MG TABLET PO (09:00)
[2017-12-29] MEDS: ENOXAPARIN 30 MG/0.3 ML SYR (J1650) SC (09:00)
[2017-12-29] MEDS: METOPROLOL SUCC (TopROL XL) 50MG **XL** TAB PO (09:11)
[2017-12-29] MEDS: VANCOMYCIN HCL 1,000 MG, VIAL MATE ADAPTER 1 EACH in D5W 250 ML IV (10:30)
[2017-12-29 12:01] LABS: BEDSIDE GLUCOSE 120 MG/DL (80-115)
[2017-12-29] MEDS: VANCOMYCIN HCL 500 MG in D5W MINI-BAG PLUS 100 ML IV (12:22)
[2017-12-29 17:25] LABS: BEDSIDE GLUCOSE 113 MG/DL (80-115)
[2017-12-29 17:51] LABS: CSF TUBE# GLU TUBE 2; CSF TUBE# TP TUBE 2; GLUCOSE CSF 67 MG/DL (40-75); TOTAL PROTEIN,CSF 117.8 MG/DL (15-45)
[2017-12-29 18:01] LABS: CSF RBC < 2 10^3/uL (<2)
[2017-12-29 18:02] LABS: APPEARANCE, CSF CLEAR (CLEAR); COLOR, CSF COLORLESS (COLORLESS); CSF DIFF IF INDICATED? NO (NO); CSF TUBE# CELL CNT TUBE 3; CSF WBC 1 /uL (0-10)
[2017-12-29 18:08] LABS: CSF RBC < 2 10^3/uL (<2)
[2017-12-29 18:09] LABS: CSF TUBE# CELL CNT TUBE 1; CSF WBC 1 /uL (0-10)
[2017-12-29 18:10] LABS: APPEARANCE, CSF HAZY (CLEAR); COLOR, CSF PINK (COLORLESS); CSF DIFF IF INDICATED? NO (NO)
[2017-12-29] MEDS: ACETAMINOPHEN TAB 650MG DOSE (2X325MG) PO (18:30)
[2017-12-29 20:08] LABS: BEDSIDE GLUCOSE 163 MG/DL (80-115)
[2017-12-29] MEDS: IMMUNE GLOBULIN 10% 20GM 200ML 40 GM in APPROPRIATE DILUENT 1 EA IV (20:08)
[2017-12-29] MEDS: ATORVASTATIN 20 MG TAB PO (20:09)
[2017-12-29] MEDS ORDERED: LEVEMIR (INSULIN DETEMIR) 1 UNITS/0.01ML SC (21:00)
[2017-12-29] MEDS: IMMUNE GLOBULIN 10% 5GM 5 GM in APPROPRIATE DILUENT 1 EA IV (23:00)
[2017-12-30] MEDS: ACETAMINOPHEN TAB 650MG DOSE (2X325MG) PO ×2 (00:02→21:30)
[2017-12-30 05:06] LABS: BASO # 0.1 10^3/uL (0.0-0.2); BASO % 0.8 % (0.0-1.0); EOS # 0.2 10^3/uL (0.0-0.50); EOS % 2.5 % (0.0-3.0); HEMATOCRIT 27.5 % (42.0-52.0); HEMOGLOBIN 8.5 g/dl (13.5-17.5); IMMATURE GRANULOCYTE % 0.3 % (0-3.0); LYMPH # 0.7 10^3/uL (1.5-4.5); LYMPH % 11.5 % (24.0-44.0); MEAN CORPUSCULAR HEMOGLOBIN 26.8 pg (27.0-33.0); MEAN CORPUSCULAR HGB CONC 30.9 g/dl (32.0-36.5); MEAN CORPUSCULAR VOLUME 86.8 fl (80.0-96.0); MONO # 0.5 10^3/uL (0.0-0.8); NEUTROPHILS # 4.7 10^3/uL (1.8-7.7); NEUTROPHILS % 76.9 % (36.0-66.0); PLATELET COUNT, AUTOMATED 269 10^3/uL (150-450); RED BLOOD COUNT 3.17 10^6/uL (4.30-6.10); RED CELL DISTRIBUTION WIDTH 14.5 % (11.5-14.5); WHITE BLOOD COUNT 6.1 10^3/uL (4.0-10.0)
[2017-12-30 05:27] LABS: ANION GAP 6 MEQ/L (8-16); BLOOD UREA NITROGEN 25 MG/DL (7-18); C REACTIVE PROTEIN QUANTITATIV 2.49 MG/DL (0.00-0.30); CARBON DIOXIDE LEVEL 21 MEQ/L (21-32); CHLORIDE LEVEL 112 MEQ/L (98-107); CREATININE FOR GFR 1.85 MG/DL (0.70-1.30); GLOMERULAR FILTRATION RATE 38.9 (>49); GLUCOSE, FASTING 104 MG/DL (70-100); POTASSIUM SERUM 4.5 MEQ/L (3.5-5.1); SODIUM LEVEL 139 MEQ/L (136-145)
[2017-12-30] MEDS: HumaLOG INSULIN (NovoLOG) PER UNIT SC ×4 (07:30→21:00)
[2017-12-30] MEDS: VANCOMYCIN HCL 1,000 MG, VIAL MATE ADAPTER 1 EACH in D5W 250 ML IV (08:29)
[2017-12-30] MEDS: ENOXAPARIN 30 MG/0.3 ML SYR (J1650) SC (08:29)
[2017-12-30] MEDS: METOPROLOL SUCC (TopROL XL) 50MG **XL** TAB PO (08:30)
[2017-12-30] MEDS: ASPIRIN 81 MG ENTERIC TAB PO (08:30)
[2017-12-30] MEDS: CHLORHEXIDINE ORAL RINSE 0.12%/15ML 120ML BOTTLE MT ×2 (09:00→21:00)
[2017-12-30] MEDS ORDERED: ETOMIDATE INJ 20MG/10ML VIAL As Ordered (10:19)
[2017-12-30] MEDS ORDERED: ROCURONIUM BROMIDE 50 MG/5 ML VIAL As Ordered (10:20)
[2017-12-30] MEDS ORDERED: PROPOFOL 1,000 MG/100 ML VIAL As Ordered (10:20)
[2017-12-30] MEDS ORDERED: MIDAZOLAM INJ 2 MG/2 ML VIAL (J2250) As Ordered ×2 (10:35)
[2017-12-30] MEDS: ETOMIDATE INJ 20MG/10ML VIAL IV (11:37)
[2017-12-30] MEDS: ROCURONIUM BROMIDE 50 MG/5 ML VIAL IV (11:37)
[2017-12-30] MEDS: NS 1,000 ML IV ×2 (11:46→23:00)
[2017-12-30] MEDS: PANTOPRAZOLE 40MG INJ (PROTONIX) (C9113) IV (11:46)
[2017-12-30 11:54] LABS: ABG BASE EXCESS -3.9 (-2.0-2.0); ABG HCO3 21.3 MEQ/L (22.0-26.0); ABG O2 SATURATION 96.2 % (95.0-99.0); ABG PARTIAL PRESSURE CO2 38.9 mmHg (35.0-45.0); ABG PARTIAL PRESSURE O2 91.9 mmHg (75.0-100.0); ABG STANDARD HCO3 21.2 MEQ/L (22.0-26.0); ABG TOTAL CO2 22.5 MEQ/L (23.0-31.0); ABG pH (ARTERIAL) 7.356 UNITS (7.350-7.450)
[2017-12-30] MEDS ORDERED: metroNIDAZOLE 500 MG in APPROPRIATE DILUENT 1 EA IV (12:00)
[2017-12-30] MEDS: IPRATROPIUM 0.5MG/ALBUTEROL 2.5MG INH SOL UD 3ML (DUONEB)(J7620) NEB ×3 (12:00→19:59)
[2017-12-30] MEDS: MEROPENEM INJ 1 GM in APPROPRIATE DILUENT 1 EA IV ×2 (12:01→23:00)
[2017-12-30] MEDS: PROPOFOL 1,000 MG in APPROPRIATE DILUENT 1 EA IV ×3 (12:02→20:13)
[2017-12-30] MEDS: MIDAZOLAM INJ 2 MG/2 ML VIAL (J2250) IV (13:07)
[2017-12-30] MEDS: HEPARIN SOD (PORCINE) 5000 UNITS/ML VIAL SQ ×2 (14:57→21:34)
[2017-12-30 17:17] LABS: BEDSIDE GLUCOSE 115 MG/DL (80-115)
[2017-12-30] MEDS: IMMUNE GLOBULIN 10% 20GM 200ML 40 GM in APPROPRIATE DILUENT 1 EA IV (17:24)
[2017-12-30] MEDS: hydrALAZINE INJ 20 MG/ML VIAL IV (19:19)
[2017-12-30] MEDS: MIDAZOLAM INJ 5 MG/ML VIAL (J2250) IV (20:00)
[2017-12-30 21:33] LABS: BEDSIDE GLUCOSE 184 MG/DL (80-115)
[2017-12-30] MEDS: IMMUNE GLOBULIN 10% 5GM 5 GM in APPROPRIATE DILUENT 1 EA IV (22:00)
[2017-12-31] MEDS: PROPOFOL 1,000 MG in APPROPRIATE DILUENT 1 EA IV ×3 (04:16→21:54)
[2017-12-31] MEDS: HEPARIN SOD (PORCINE) 5000 UNITS/ML VIAL SQ ×3 (06:22→21:22)
[2017-12-31 06:25] LABS: ABG BASE EXCESS -2.7 (-2.0-2.0); ABG HCO3 22.1 MEQ/L (22.0-26.0); ABG O2 SATURATION 97.1 % (95.0-99.0); ABG PARTIAL PRESSURE CO2 38.1 mmHg (35.0-45.0); ABG PARTIAL PRESSURE O2 93.7 mmHg (75.0-100.0); ABG STANDARD HCO3 22.2 MEQ/L (22.0-26.0); ABG TOTAL CO2 23.3 MEQ/L (23.0-31.0); ABG pH (ARTERIAL) 7.381 UNITS (7.350-7.450)
[2017-12-31 07:37] LABS: BASO % 0.2 % (0.0-1.0); EOS % 0.1 % (0.0-3.0); HEMATOCRIT 29.4 % (42.0-52.0); HEMOGLOBIN 9.1 g/dl (13.5-17.5); IMMATURE GRANULOCYTE % 0.6 % (0-3.0); LYMPH # 0.8 10^3/uL (1.5-4.5); LYMPH % 6.1 % (24.0-44.0); MEAN CORPUSCULAR HEMOGLOBIN 26.8 pg (27.0-33.0); MEAN CORPUSCULAR VOLUME 86.7 fl (80.0-96.0); MONO # 0.8 10^3/uL (0.0-0.8); MONO % 6.1 % (0.0-5.0); NEUTROPHILS # 11.3 10^3/uL (1.8-7.7); NEUTROPHILS % 86.9 % (36.0-66.0); PLATELET COUNT, AUTOMATED 320 10^3/uL (150-450); RED BLOOD COUNT 3.39 10^6/uL (4.30-6.10); RED CELL DISTRIBUTION WIDTH 14.7 % (11.5-14.5); WHITE BLOOD COUNT 12.9 10^3/uL (4.0-10.0)
[2017-12-31 07:47] LABS: BEDSIDE GLUCOSE 160 MG/DL (80-115)
[2017-12-31] MEDS: HumaLOG INSULIN (NovoLOG) PER UNIT SC ×4 (07:57→21:00)
[2017-12-31] MEDS: VANCOMYCIN HCL 1,000 MG, VIAL MATE ADAPTER 1 EACH in D5W 250 ML IV (07:58)
[2017-12-31] MEDS: IPRATROPIUM 0.5MG/ALBUTEROL 2.5MG INH SOL UD 3ML (DUONEB)(J7620) NEB ×4 (08:04→20:00)
[2017-12-31 08:13] LABS: ANION GAP 5 MEQ/L (8-16); BLOOD UREA NITROGEN 29 MG/DL (7-18); C REACTIVE PROTEIN QUANTITATIV 8.89 MG/DL (0.00-0.30); CALCIUM LEVEL 7.8 MG/DL (8.8-10.2); CARBON DIOXIDE LEVEL 24 MEQ/L (21-32); CHLORIDE LEVEL 107 MEQ/L (98-107); CREATININE FOR GFR 2.07 MG/DL (0.70-1.30); GLOMERULAR FILTRATION RATE 34.2 (>49); GLUCOSE, FASTING 185 MG/DL (70-100); POTASSIUM SERUM 4.7 MEQ/L (3.5-5.1); SODIUM LEVEL 136 MEQ/L (136-145)
[2017-12-31 08:15] LABS: FERRITIN 258 NG/ML (26-388); IRON (FE) 19 UG/DL (65-175); PERCENT SATURATION 11.9 % (19.7-50.0); TOTAL IRON BINDING CAPACITY 159 UG/DL (250-450)
[2017-12-31] MEDS: PANTOPRAZOLE 40MG INJ (PROTONIX) (C9113) IV (09:31)
[2017-12-31] MEDS: ASPIRIN 81 MG ENTERIC TAB PO (09:32)
[2017-12-31] MEDS: hydrALAZINE INJ 20 MG/ML VIAL IV (09:32)
[2017-12-31] MEDS: CHLORHEXIDINE ORAL RINSE 0.12%/15ML 120ML BOTTLE MT ×2 (09:33→21:23)
[2017-12-31 12:06] LABS: BEDSIDE GLUCOSE 248 MG/DL (80-115)
[2017-12-31] MEDS: METOPROLOL TART 25 MG TABLET PO ×2 (12:34→18:00)
[2017-12-31] MEDS: MEROPENEM INJ 1 GM in APPROPRIATE DILUENT 1 EA IV (12:35)
[2017-12-31] MEDS: NS 1,000 ML IV (13:21)
[2017-12-31] MEDS ORDERED: METOPROLOL 5 MG/5 ML VIAL As Ordered (16:23)
[2017-12-31] MEDS: IMMUNE GLOBULIN 10% 20GM 200ML 40 GM in APPROPRIATE DILUENT 1 EA IV (18:00)
[2017-12-31] MEDS: IMMUNE GLOBULIN 10% 5GM 5 GM in APPROPRIATE DILUENT 1 EA IV (21:57)
[2018-01-01] MEDS: MEROPENEM INJ 1 GM in APPROPRIATE DILUENT 1 EA IV ×2 (00:04→12:32)
[2018-01-01] MEDS: MIDAZOLAM INJ 2 MG/2 ML VIAL (J2250) IV ×2 (03:17→12:32)
[2018-01-01] MEDS: NS 1,000 ML IV ×2 (03:18→16:45)
[2018-01-01] MEDS ORDERED: MORPHINE 4 MG/ML 1ML VIAL/SYRINGE (J2270) As Ordered (03:20)
[2018-01-01] MEDS: MORPHINE 4 MG/ML 1ML VIAL/SYRINGE (J2270) IV ×4 (03:30→22:17)
[2018-01-01] MEDS: METOPROLOL 5 MG/5 ML VIAL IV (03:59)
[2018-01-01 04:45] LABS: BASO % 0.2 % (0.0-1.0); EOS % 0.3 % (0.0-3.0); HEMATOCRIT 26.7 % (42.0-52.0); HEMOGLOBIN 8.3 g/dl (13.5-17.5); IMMATURE GRANULOCYTE % 0.7 % (0-3.0); LYMPH # 0.7 10^3/uL (1.5-4.5); LYMPH % 6.6 % (24.0-44.0); MEAN CORPUSCULAR HEMOGLOBIN 26.6 pg (27.0-33.0); MEAN CORPUSCULAR HGB CONC 31.1 g/dl (32.0-36.5); MEAN CORPUSCULAR VOLUME 85.6 fl (80.0-96.0); MONO # 0.7 10^3/uL (0.0-0.8); NEUTROPHILS # 8.4 10^3/uL (1.8-7.7); NEUTROPHILS % 85.2 % (36.0-66.0); PLATELET COUNT, AUTOMATED 304 10^3/uL (150-450); RED BLOOD COUNT 3.12 10^6/uL (4.30-6.10); WHITE BLOOD COUNT 9.9 10^3/uL (4.0-10.0)
[2018-01-01 04:51] LABS: ANION GAP 8 MEQ/L (8-16); BLOOD UREA NITROGEN 32 MG/DL (7-18); C REACTIVE PROTEIN QUANTITATIV 9.78 MG/DL (0.00-0.30); CALCIUM LEVEL 7.8 MG/DL (8.8-10.2); CARBON DIOXIDE LEVEL 21 MEQ/L (21-32); CHLORIDE LEVEL 109 MEQ/L (98-107); CREATININE FOR GFR 1.98 MG/DL (0.70-1.30); GLUCOSE, FASTING 214 MG/DL (70-100); POTASSIUM SERUM 4.3 MEQ/L (3.5-5.1); SODIUM LEVEL 138 MEQ/L (136-145)
[2018-01-01] MEDS: diltiaZEM 125 MG in NS 100 ML IV (05:00)
[2018-01-01] MEDS: HEPARIN SOD (PORCINE) 5000 UNITS/ML VIAL SQ ×3 (05:01→22:10)
[2018-01-01] MEDS: METOPROLOL TART 25 MG TABLET PO ×5 (05:01→23:56)
[2018-01-01] MEDS: PROPOFOL 1,000 MG in APPROPRIATE DILUENT 1 EA IV ×5 (05:02→22:17)
[2018-01-01 06:14] LABS: ABG BASE EXCESS -2.6 (-2.0-2.0); ABG PARTIAL PRESSURE CO2 37.5 mmHg (35.0-45.0); ABG STANDARD HCO3 22.2 MEQ/L (22.0-26.0); ABG TOTAL CO2 23.2 MEQ/L (23.0-31.0); ABG pH (ARTERIAL) 7.387 UNITS (7.350-7.450)
[2018-01-01] MEDS: ASPIRIN 81 MG ENTERIC TAB PO (07:22)
[2018-01-01] MEDS: IPRATROPIUM 0.5MG/ALBUTEROL 2.5MG INH SOL UD 3ML (DUONEB)(J7620) NEB ×4 (07:42→19:46)
[2018-01-01] MEDS: HumaLOG INSULIN (NovoLOG) PER UNIT SC ×4 (08:47→23:55)
[2018-01-01] MEDS: PANTOPRAZOLE 40MG INJ (PROTONIX) (C9113) IV (08:47)
[2018-01-01] MEDS: VANCOMYCIN HCL 1,000 MG, VIAL MATE ADAPTER 1 EACH in D5W 250 ML IV (08:48)
[2018-01-01] MEDS: CHLORHEXIDINE ORAL RINSE 0.12%/15ML 120ML BOTTLE MT ×2 (08:49→22:09)
[2018-01-01] MEDS: ASPIRIN 81 MG CHEW TABLET GT (09:39)
[2018-01-01 10:12] LABS: BEDSIDE GLUCOSE 217 MG/DL (80-115)
[2018-01-01 10:12] LABS: BEDSIDE GLUCOSE 223 MG/DL (80-115)
[2018-01-01 11:45] LABS: BEDSIDE GLUCOSE 294 MG/DL (80-115)
[2018-01-01 17:07] LABS: BEDSIDE GLUCOSE 266 MG/DL (80-115)
[2018-01-01] MEDS: NYSTATIN 500,000 U/5 ML SUSP UDC SS ×2 (17:30→23:55)
[2018-01-01] MEDS: IMMUNE GLOBULIN 10% 20GM 200ML 40 GM in APPROPRIATE DILUENT 1 EA IV (17:33)
[2018-01-01] MEDS: IMMUNE GLOBULIN 10% 5GM 5 GM in APPROPRIATE DILUENT 1 EA IV (22:11)
[2018-01-01 23:54] LABS: BEDSIDE GLUCOSE 215 MG/DL (80-115)
[2018-01-02] MEDS: MIDAZOLAM INJ 2 MG/2 ML VIAL (J2250) IV ×3 (01:49→08:08)
[2018-01-02] MEDS: MORPHINE 4 MG/ML 1ML VIAL/SYRINGE (J2270) IV (02:13)
[2018-01-02] MEDS: PROPOFOL 1,000 MG in APPROPRIATE DILUENT 1 EA IV ×5 (02:14→21:48)
[2018-01-02 05:13] LABS: BASO % 0.4 % (0.0-1.0); EOS # 0.1 10^3/uL (0.0-0.50); EOS % 1.5 % (0.0-3.0); HEMATOCRIT 25.4 % (42.0-52.0); HEMOGLOBIN 7.8 g/dl (13.5-17.5); IMMATURE GRANULOCYTE % 0.9 % (0-3.0); LYMPH # 0.7 10^3/uL (1.5-4.5); LYMPH % 7.9 % (24.0-44.0); MEAN CORPUSCULAR HEMOGLOBIN 26.5 pg (27.0-33.0); MEAN CORPUSCULAR HGB CONC 30.7 g/dl (32.0-36.5); MEAN CORPUSCULAR VOLUME 86.4 fl (80.0-96.0); MONO # 0.7 10^3/uL (0.0-0.8); MONO % 7.7 % (0.0-5.0); NEUTROPHILS # 6.9 10^3/uL (1.8-7.7); NEUTROPHILS % 81.6 % (36.0-66.0); PLATELET COUNT, AUTOMATED 309 10^3/uL (150-450); RED BLOOD COUNT 2.94 10^6/uL (4.30-6.10); RED CELL DISTRIBUTION WIDTH 15.1 % (11.5-14.5); WHITE BLOOD COUNT 8.4 10^3/uL (4.0-10.0)
[2018-01-02] MEDS: NS 1,000 ML IV ×2 (05:21→13:12)
[2018-01-02] MEDS: HEPARIN SOD (PORCINE) 5000 UNITS/ML VIAL SQ ×3 (05:27→23:11)
[2018-01-02] MEDS: NYSTATIN 500,000 U/5 ML SUSP UDC SS ×3 (05:28→18:17)
[2018-01-02 05:29] LABS: ANION GAP 4 MEQ/L (8-16); BLOOD UREA NITROGEN 37 MG/DL (7-18); CALCIUM LEVEL 7.8 MG/DL (8.8-10.2); CARBON DIOXIDE LEVEL 24 MEQ/L (21-32); CHLORIDE LEVEL 109 MEQ/L (98-107); CREATININE FOR GFR 1.83 MG/DL (0.70-1.30); GLOMERULAR FILTRATION RATE 39.4 (>49); GLUCOSE, FASTING 240 MG/DL (70-100); POTASSIUM SERUM 4.3 MEQ/L (3.5-5.1); SODIUM LEVEL 137 MEQ/L (136-145)
[2018-01-02 05:50] LABS: ABG BASE EXCESS -3.6 (-2.0-2.0); ABG HCO3 21.1 MEQ/L (22.0-26.0); ABG O2 SATURATION 96.7 % (95.0-99.0); ABG PARTIAL PRESSURE CO2 36.9 mmHg (35.0-45.0); ABG PARTIAL PRESSURE O2 84.4 mmHg (75.0-100.0); ABG STANDARD HCO3 21.4 MEQ/L (22.0-26.0); ABG TOTAL CO2 22.3 MEQ/L (23.0-31.0); ABG pH (ARTERIAL) 7.376 UNITS (7.350-7.450)
[2018-01-02] MEDS: METOPROLOL TART 25 MG TABLET PO ×3 (06:00→18:17)
[2018-01-02] MEDS: HumaLOG INSULIN (NovoLOG) PER UNIT SC ×3 (06:19→18:16)
[2018-01-02] MEDS: IPRATROPIUM 0.5MG/ALBUTEROL 2.5MG INH SOL UD 3ML (DUONEB)(J7620) NEB ×4 (07:37→20:42)
[2018-01-02] MEDS: VANCOMYCIN HCL 1,000 MG, VIAL MATE ADAPTER 1 EACH in D5W 250 ML IV (08:04)
[2018-01-02] MEDS: ASPIRIN 81 MG CHEW TABLET GT (09:22)
[2018-01-02] MEDS: PANTOPRAZOLE 40MG INJ (PROTONIX) (C9113) IV (09:23)
[2018-01-02] MEDS: CHLORHEXIDINE ORAL RINSE 0.12%/15ML 120ML BOTTLE MT ×2 (09:23→20:21)
[2018-01-02 11:42] LABS: BEDSIDE GLUCOSE 263 MG/DL (80-115)
[2018-01-02] MEDS: METOCLOPRAMIDE INJ 10MG/2ML VIAL (J2765) IV (12:56)
[2018-01-02 18:07] LABS: BEDSIDE GLUCOSE 220 MG/DL (80-115)
[2018-01-02] MEDS: IMMUNE GLOBULIN 10% 20GM 200ML 40 GM in APPROPRIATE DILUENT 1 EA IV (18:20)
[2018-01-02] MEDS: IMMUNE GLOBULIN 10% 5GM 5 GM in APPROPRIATE DILUENT 1 EA IV (23:15)
[2018-01-02 23:47] LABS: BEDSIDE GLUCOSE 177 MG/DL (80-115)
[2018-01-03] MEDS: METOPROLOL TART 25 MG TABLET PO ×5 (00:03→23:53)
[2018-01-03] MEDS ORDERED: PILL CRUSHER/CUTTER 1 EACH XX (00:15)
[2018-01-03] MEDS: PROPOFOL 1,000 MG in APPROPRIATE DILUENT 1 EA IV ×4 (03:07→20:32)
[2018-01-03 05:44] LABS: BEDSIDE GLUCOSE 219 MG/DL (80-115)
[2018-01-03] MEDS: NYSTATIN 500,000 U/5 ML SUSP UDC SS ×5 (06:06→23:53)
[2018-01-03] MEDS: HEPARIN SOD (PORCINE) 5000 UNITS/ML VIAL SQ ×3 (06:07→22:00)
[2018-01-03] MEDS: HumaLOG INSULIN (NovoLOG) PER UNIT SC ×5 (06:08→23:54)
[2018-01-03 07:12] LABS: BASO % 0.5 % (0.0-1.0); EOS # 0.1 10^3/uL (0.0-0.50); EOS % 2.1 % (0.0-3.0); HEMATOCRIT 24.2 % (42.0-52.0); HEMOGLOBIN 7.4 g/dl (13.5-17.5); IMMATURE GRANULOCYTE % 1.8 % (0-3.0); LYMPH # 0.8 10^3/uL (1.5-4.5); LYMPH % 12.7 % (24.0-44.0); MEAN CORPUSCULAR HEMOGLOBIN 26.5 pg (27.0-33.0); MEAN CORPUSCULAR HGB CONC 30.6 g/dl (32.0-36.5); MEAN CORPUSCULAR VOLUME 86.7 fl (80.0-96.0); MONO # 0.6 10^3/uL (0.0-0.8); MONO % 9.5 % (0.0-5.0); NEUTROPHILS # 4.6 10^3/uL (1.8-7.7); NEUTROPHILS % 73.4 % (36.0-66.0); PLATELET COUNT, AUTOMATED 315 10^3/uL (150-450); RED BLOOD COUNT 2.79 10^6/uL (4.30-6.10); RED CELL DISTRIBUTION WIDTH 15.1 % (11.5-14.5); WHITE BLOOD COUNT 6.2 10^3/uL (4.0-10.0)
[2018-01-03] MEDS: IPRATROPIUM 0.5MG/ALBUTEROL 2.5MG INH SOL UD 3ML (DUONEB)(J7620) NEB ×4 (07:36→23:29)
[2018-01-03 07:49] LABS: ANION GAP 6 MEQ/L (8-16); BLOOD UREA NITROGEN 38 MG/DL (7-18); CALCIUM LEVEL 7.9 MG/DL (8.8-10.2); CARBON DIOXIDE LEVEL 21 MEQ/L (21-32); CHLORIDE LEVEL 113 MEQ/L (98-107); CREATININE FOR GFR 1.73 MG/DL (0.70-1.30); GLUCOSE, FASTING 234 MG/DL (70-100); POTASSIUM SERUM 4.4 MEQ/L (3.5-5.1); SODIUM LEVEL 140 MEQ/L (136-145); VANCOMYCIN LEVEL TROUGH 18.2 UG/ML (10.0-20.0)
[2018-01-03] MEDS: NS 1,000 ML IV (08:20)
[2018-01-03] MEDS: PANTOPRAZOLE 40MG INJ (PROTONIX) (C9113) IV (08:20)
[2018-01-03] MEDS: ASPIRIN 81 MG CHEW TABLET GT (08:20)
[2018-01-03] MEDS: VANCOMYCIN HCL 1,000 MG, VIAL MATE ADAPTER 1 EACH in D5W 250 ML IV (08:20)
[2018-01-03] MEDS: CHLORHEXIDINE ORAL RINSE 0.12%/15ML 120ML BOTTLE MT ×2 (09:00→20:34)
[2018-01-03 09:24] LABS: MAGNESIUM LEVEL 2.4 MG/DL (1.8-2.4)
[2018-01-03] MEDS ORDERED: DOCUSATE SOD LIQ 100MG/10ML UDC GT (09:30)
[2018-01-03 11:14] LABS: BEDSIDE GLUCOSE 255 MG/DL (80-115)
[2018-01-03] MEDS: BACITRACIN OINT 30GM TOP (11:31)
[2018-01-03] MEDS: ACETAMINOPHEN TAB 650MG DOSE (2X325MG) PO (11:31)
[2018-01-03] MEDS: METOCLOPRAMIDE INJ 10MG/2ML VIAL (J2765) IV ×2 (11:32→17:33)
[2018-01-03 14:08] LABS: IMMEDIATE SPIN CROSSMATCH 1 1
[2018-01-03] MEDS: MORPHINE 4 MG/ML 1ML VIAL/SYRINGE (J2270) IV ×2 (14:21→20:34)
[2018-01-03 17:28] LABS: BEDSIDE GLUCOSE 246 MG/DL (80-115)
[2018-01-03 23:51] LABS: BEDSIDE GLUCOSE 292 MG/DL (80-115)
[2018-01-04] MEDS: PROPOFOL 1,000 MG in APPROPRIATE DILUENT 1 EA IV ×6 (01:08→23:06)
[2018-01-04] MEDS: METOCLOPRAMIDE INJ 10MG/2ML VIAL (J2765) IV ×3 (02:59→18:23)
[2018-01-04 04:38] LABS: BASO % 0.6 % (0.0-1.0); EOS # 0.2 10^3/uL (0.0-0.50); EOS % 2.8 % (0.0-3.0); HEMATOCRIT 27.5 % (42.0-52.0); HEMOGLOBIN 8.4 g/dl (13.5-17.5); IMMATURE GRANULOCYTE % 1.8 % (0-3.0); LYMPH # 0.7 10^3/uL (1.5-4.5); LYMPH % 11.4 % (24.0-44.0); MEAN CORPUSCULAR HEMOGLOBIN 26.7 pg (27.0-33.0); MEAN CORPUSCULAR HGB CONC 30.5 g/dl (32.0-36.5); MEAN CORPUSCULAR VOLUME 87.3 fl (80.0-96.0); MONO # 0.7 10^3/uL (0.0-0.8); NEUTROPHILS # 4.5 10^3/uL (1.8-7.7); NEUTROPHILS % 72.4 % (36.0-66.0); PLATELET COUNT, AUTOMATED 303 10^3/uL (150-450); RED BLOOD COUNT 3.15 10^6/uL (4.30-6.10); RED CELL DISTRIBUTION WIDTH 14.9 % (11.5-14.5); WHITE BLOOD COUNT 6.2 10^3/uL (4.0-10.0)
[2018-01-04 04:59] LABS: ANION GAP 6 MEQ/L (8-16); BLOOD UREA NITROGEN 45 MG/DL (7-18); C REACTIVE PROTEIN QUANTITATIV 9.64 MG/DL (0.00-0.30); CARBON DIOXIDE LEVEL 22 MEQ/L (21-32); CHLORIDE LEVEL 112 MEQ/L (98-107); CREATININE FOR GFR 1.71 MG/DL (0.70-1.30); GLOMERULAR FILTRATION RATE 42.6 (>49); GLUCOSE, FASTING 309 MG/DL (70-100); POTASSIUM SERUM 4.3 MEQ/L (3.5-5.1); SODIUM LEVEL 140 MEQ/L (136-145)
[2018-01-04] MEDS: METOPROLOL TART 25 MG TABLET PO ×4 (05:32→23:07)
[2018-01-04] MEDS: HEPARIN SOD (PORCINE) 5000 UNITS/ML VIAL SQ ×3 (05:32→23:08)
[2018-01-04] MEDS: NYSTATIN 500,000 U/5 ML SUSP UDC SS ×4 (05:32→23:06)
[2018-01-04] MEDS: HumaLOG INSULIN (NovoLOG) PER UNIT SC ×4 (05:33→23:12)
[2018-01-04] MEDS: IPRATROPIUM 0.5MG/ALBUTEROL 2.5MG INH SOL UD 3ML (DUONEB)(J7620) NEB ×4 (07:03→20:19)
[2018-01-04] MEDS: VANCOMYCIN HCL 1,000 MG, VIAL MATE ADAPTER 1 EACH in D5W 250 ML IV (08:55)
[2018-01-04] MEDS: CHLORHEXIDINE ORAL RINSE 0.12%/15ML 120ML BOTTLE MT ×2 (09:42→23:08)
[2018-01-04] MEDS: BACITRACIN OINT 30GM TOP (09:42)
[2018-01-04] MEDS: ASPIRIN 81 MG CHEW TABLET GT (09:44)
[2018-01-04] MEDS: PANTOPRAZOLE 40MG INJ (PROTONIX) (C9113) IV (09:44)
[2018-01-04 12:07] LABS: BEDSIDE GLUCOSE 320 MG/DL (80-115)
[2018-01-04 17:07] LABS: BEDSIDE GLUCOSE 324 MG/DL (80-115)
[2018-01-04] MEDS: FUROSEMIDE 40 MG/4 ML VIAL (J1940) IV (17:24)
[2018-01-04 23:03] LABS: BEDSIDE GLUCOSE 318 MG/DL (80-115)
[2018-01-05] MEDS: MORPHINE 4 MG/ML 1ML VIAL/SYRINGE (J2270) IV ×2 (00:12→13:44)
[2018-01-05] MEDS: MIDAZOLAM INJ 2 MG/2 ML VIAL (J2250) IV (00:24)
[2018-01-05 01:04] LABS: ABG BASE EXCESS -0.8 (-2.0-2.0); ABG HCO3 24.9 MEQ/L (22.0-26.0); ABG O2 SATURATION 95.1 % (95.0-99.0); ABG PARTIAL PRESSURE CO2 45.8 mmHg (35.0-45.0); ABG PARTIAL PRESSURE O2 84.6 mmHg (75.0-100.0); ABG STANDARD HCO3 23.8 MEQ/L (22.0-26.0); ABG TOTAL CO2 26.3 MEQ/L (23.0-31.0); ABG pH (ARTERIAL) 7.353 UNITS (7.350-7.450)
[2018-01-05] MEDS: PROPOFOL 1,000 MG in APPROPRIATE DILUENT 1 EA IV ×6 (02:05→20:18)
[2018-01-05] MEDS: guaiFENesin SYRUP 200 MG/10 ML UDC PO (03:00)
[2018-01-05] MEDS: METOCLOPRAMIDE INJ 10MG/2ML VIAL (J2765) IV ×3 (03:00→18:30)
[2018-01-05] MEDS: ACETAMINOPHEN TAB 650MG DOSE (2X325MG) PO (03:34)
[2018-01-05 04:57] LABS: BASO # 0.1 10^3/uL (0.0-0.2); BASO % 0.8 % (0.0-1.0); EOS # 0.1 10^3/uL (0.0-0.50); EOS % 1.7 % (0.0-3.0); HEMATOCRIT 28.9 % (42.0-52.0); LYMPH # 0.9 10^3/uL (1.5-4.5); LYMPH % 11.8 % (24.0-44.0); MEAN CORPUSCULAR HEMOGLOBIN 26.9 pg (27.0-33.0); MEAN CORPUSCULAR HGB CONC 31.1 g/dl (32.0-36.5); MEAN CORPUSCULAR VOLUME 86.5 fl (80.0-96.0); MONO # 0.8 10^3/uL (0.0-0.8); MONO % 10.7 % (0.0-5.0); NEUTROPHILS # 5.5 10^3/uL (1.8-7.7); PLATELET COUNT, AUTOMATED 321 10^3/uL (150-450); RED BLOOD COUNT 3.34 10^6/uL (4.30-6.10); WHITE BLOOD COUNT 7.6 10^3/uL (4.0-10.0)
[2018-01-05 05:14] LABS: ANION GAP 6 MEQ/L (8-16); BLOOD UREA NITROGEN 52 MG/DL (7-18); C REACTIVE PROTEIN QUANTITATIV 7.32 MG/DL (0.00-0.30); CALCIUM LEVEL 8.5 MG/DL (8.8-10.2); CARBON DIOXIDE LEVEL 25 MEQ/L (21-32); CHLORIDE LEVEL 110 MEQ/L (98-107); CREATININE FOR GFR 1.81 MG/DL (0.70-1.30); GLOMERULAR FILTRATION RATE 39.9 (>49); GLUCOSE, FASTING 288 MG/DL (70-100); POTASSIUM SERUM 4.6 MEQ/L (3.5-5.1); SODIUM LEVEL 141 MEQ/L (136-145)
[2018-01-05] MEDS: HumaLOG INSULIN (NovoLOG) PER UNIT SC ×3 (06:05→17:36)
[2018-01-05] MEDS: NYSTATIN 500,000 U/5 ML SUSP UDC SS ×3 (06:05→17:36)
[2018-01-05] MEDS: METOPROLOL TART 25 MG TABLET PO ×3 (06:06→17:32)
[2018-01-05] MEDS: HEPARIN SOD (PORCINE) 5000 UNITS/ML VIAL SQ ×3 (06:06→22:04)
[2018-01-05] MEDS: IPRATROPIUM 0.5MG/ALBUTEROL 2.5MG INH SOL UD 3ML (DUONEB)(J7620) NEB ×4 (07:29→20:11)
[2018-01-05] MEDS: LEVEMIR (INSULIN DETEMIR) 1 UNITS/0.01ML SC (08:57)
[2018-01-05] MEDS: FUROSEMIDE 40 MG/4 ML VIAL (J1940) IV (08:57)
[2018-01-05] MEDS: ASPIRIN 81 MG CHEW TABLET GT (08:57)
[2018-01-05] MEDS: CHLORHEXIDINE ORAL RINSE 0.12%/15ML 120ML BOTTLE MT ×2 (08:57→20:18)
[2018-01-05] MEDS: VANCOMYCIN HCL 1,000 MG, VIAL MATE ADAPTER 1 EACH in D5W 250 ML IV (08:57)
[2018-01-05] MEDS: PANTOPRAZOLE 40MG INJ (PROTONIX) (C9113) IV (08:57)
[2018-01-05] MEDS: BACITRACIN OINT 30GM TOP (08:58)
[2018-01-05 13:19] LABS: BEDSIDE GLUCOSE 400 MG/DL (80-115)
[2018-01-05 17:22] LABS: BEDSIDE GLUCOSE 371 MG/DL (80-115)
[2018-01-06 00:36] LABS: BEDSIDE GLUCOSE 329 MG/DL (80-115)
[2018-01-06] MEDS: NYSTATIN 500,000 U/5 ML SUSP UDC SS ×5 (00:40→23:00)
[2018-01-06] MEDS: HumaLOG INSULIN (NovoLOG) PER UNIT SC ×7 (00:40→23:01)
[2018-01-06] MEDS: PROPOFOL 1,000 MG in APPROPRIATE DILUENT 1 EA IV ×2 (01:09→05:42)
[2018-01-06] MEDS: METOCLOPRAMIDE INJ 10MG/2ML VIAL (J2765) IV ×3 (03:37→18:03)
[2018-01-06] MEDS: METOPROLOL TART 25 MG TABLET PO ×5 (05:46→23:00)
[2018-01-06] MEDS: HEPARIN SOD (PORCINE) 5000 UNITS/ML VIAL SQ ×3 (05:46→23:00)
[2018-01-06 05:50] LABS: BEDSIDE GLUCOSE 382 MG/DL (80-115)
[2018-01-06 07:14] LABS: VANCOMYCIN LEVEL TROUGH 26.6 UG/ML (10.0-20.0)
[2018-01-06] MEDS: IPRATROPIUM 0.5MG/ALBUTEROL 2.5MG INH SOL UD 3ML (DUONEB)(J7620) NEB ×4 (07:39→20:36)
[2018-01-06 08:01] LABS: BASO # 0.1 10^3/uL (0.0-0.2); BASO % 0.7 % (0.0-1.0); EOS # 0.1 10^3/uL (0.0-0.50); EOS % 1.5 % (0.0-3.0); HEMATOCRIT 27.8 % (42.0-52.0); HEMOGLOBIN 8.7 g/dl (13.5-17.5); IMMATURE GRANULOCYTE % 2.5 % (0-3.0); LYMPH # 1.1 10^3/uL (1.5-4.5); LYMPH % 12.4 % (24.0-44.0); MEAN CORPUSCULAR HGB CONC 31.3 g/dl (32.0-36.5); MEAN CORPUSCULAR VOLUME 86.3 fl (80.0-96.0); MONO # 0.7 10^3/uL (0.0-0.8); MONO % 7.7 % (0.0-5.0); NEUTROPHILS # 6.4 10^3/uL (1.8-7.7); NEUTROPHILS % 75.2 % (36.0-66.0); PLATELET COUNT, AUTOMATED 316 10^3/uL (150-450); RED BLOOD COUNT 3.22 10^6/uL (4.30-6.10); RED CELL DISTRIBUTION WIDTH 15.2 % (11.5-14.5); WHITE BLOOD COUNT 8.5 10^3/uL (4.0-10.0)
[2018-01-06 08:09] LABS: ANION GAP 9 MEQ/L (8-16); BLOOD UREA NITROGEN 65 MG/DL (7-18); C REACTIVE PROTEIN QUANTITATIV 4.89 MG/DL (0.00-0.30); CALCIUM LEVEL 8.5 MG/DL (8.8-10.2); CARBON DIOXIDE LEVEL 23 MEQ/L (21-32); CHLORIDE LEVEL 108 MEQ/L (98-107); CREATININE FOR GFR 2.02 MG/DL (0.70-1.30); GLOMERULAR FILTRATION RATE 35.1 (>49); GLUCOSE, FASTING 374 MG/DL (70-100); POTASSIUM SERUM 4.2 MEQ/L (3.5-5.1); SODIUM LEVEL 140 MEQ/L (136-145)
[2018-01-06] MEDS: LEVEMIR (INSULIN DETEMIR) 1 UNITS/0.01ML SC (09:00)
[2018-01-06] MEDS: BISACODYL 10 MG SUPP PR (09:16)
[2018-01-06] MEDS: DOCUSATE SOD LIQ 100MG/10ML UDC GT ×2 (09:16→19:39)
[2018-01-06] MEDS: ASPIRIN 81 MG CHEW TABLET GT (09:16)
[2018-01-06] MEDS: FUROSEMIDE 40 MG/4 ML VIAL (J1940) IV (09:16)
[2018-01-06] MEDS: PANTOPRAZOLE 40MG INJ (PROTONIX) (C9113) IV (09:16)
[2018-01-06] MEDS: CHLORHEXIDINE ORAL RINSE 0.12%/15ML 120ML BOTTLE MT ×2 (09:17→19:41)
[2018-01-06] MEDS: BACITRACIN OINT 30GM TOP (09:17)
[2018-01-06 11:56] LABS: BEDSIDE GLUCOSE 408 MG/DL (80-115)
[2018-01-06] MEDS: ACETAMINOPHEN TAB 650MG DOSE (2X325MG) PO (14:28)
[2018-01-06] MEDS: MOM 30ML SUSPENSION UDC FT (14:28)
[2018-01-06 17:14] LABS: BEDSIDE GLUCOSE 350 MG/DL (80-115)
[2018-01-06] MEDS: VANCOMYCIN HCL 500 MG in D5W MINI-BAG PLUS 100 ML IV (17:23)
[2018-01-06] MEDS: MORPHINE 4 MG/ML 1ML VIAL/SYRINGE (J2270) IV ×2 (19:42→22:52)
[2018-01-06 23:00] LABS: BEDSIDE GLUCOSE 353 MG/DL (80-115)
[2018-01-06] MEDS: **hydrALAZINE** 10 MG TAB NG (23:00)
[2018-01-06] MEDS: MIDAZOLAM INJ 2 MG/2 ML VIAL (J2250) IV (23:54)
[2018-01-07] MEDS: MORPHINE 4 MG/ML 1ML VIAL/SYRINGE (J2270) IV ×2 (01:14→05:46)
[2018-01-07] MEDS: MIDAZOLAM INJ 2 MG/2 ML VIAL (J2250) IV ×3 (01:14→05:46)
[2018-01-07] MEDS: METOCLOPRAMIDE INJ 10MG/2ML VIAL (J2765) IV (03:35)
[2018-01-07 05:25] LABS: ALBUMIN/GLOBULIN RATIO 0.35 (1.00-1.93); ALKALINE PHOSPHATASE 95 U/L (45-117); ALT/SGPT 48 U/L (12-78); ANION GAP 7 MEQ/L (8-16); AST/SGOT 44 U/L (7-37); BILIRUBIN,TOTAL 0.2 MG/DL (0.2-1.0); BLOOD UREA NITROGEN 72 MG/DL (7-18); C REACTIVE PROTEIN QUANTITATIV 5.66 MG/DL (0.00-0.30); CALCIUM LEVEL 9.1 MG/DL (8.8-10.2); CARBON DIOXIDE LEVEL 25 MEQ/L (21-32); CHLORIDE LEVEL 110 MEQ/L (98-107); CREATININE FOR GFR 1.89 MG/DL (0.70-1.30); GLOMERULAR FILTRATION RATE 37.9 (>49); GLUCOSE, FASTING 333 MG/DL (70-100); POTASSIUM SERUM 3.8 MEQ/L (3.5-5.1); SODIUM LEVEL 142 MEQ/L (136-145); TOTAL PROTEIN 7.7 GM/DL (6.4-8.2)
[2018-01-07] MEDS: HEPARIN SOD (PORCINE) 5000 UNITS/ML VIAL SQ ×3 (05:47→22:00)
[2018-01-07] MEDS: HumaLOG INSULIN (NovoLOG) PER UNIT SC ×4 (05:48→20:36)
[2018-01-07] MEDS: **hydrALAZINE** 10 MG TAB NG (05:48)
[2018-01-07] MEDS: NYSTATIN 500,000 U/5 ML SUSP UDC SS ×3 (05:48→17:28)
[2018-01-07] MEDS: METOPROLOL TART 25 MG TABLET PO ×2 (05:49→12:00)
[2018-01-07] MEDS: IPRATROPIUM 0.5MG/ALBUTEROL 2.5MG INH SOL UD 3ML (DUONEB)(J7620) NEB ×4 (08:19→19:48)
[2018-01-07] MEDS: BISACODYL 10 MG SUPP PR (09:00)
[2018-01-07] MEDS: LEVEMIR (INSULIN DETEMIR) 1 UNITS/0.01ML SC (09:15)
[2018-01-07] MEDS: ASPIRIN 81 MG CHEW TABLET GT (09:16)
[2018-01-07] MEDS: PANTOPRAZOLE 40MG INJ (PROTONIX) (C9113) IV (09:16)
[2018-01-07] MEDS: BACITRACIN OINT 30GM TOP (09:16)
[2018-01-07] MEDS: CHLORHEXIDINE ORAL RINSE 0.12%/15ML 120ML BOTTLE MT (09:16)
[2018-01-07] MEDS: DOCUSATE SOD LIQ 100MG/10ML UDC GT ×2 (09:16→19:40)
[2018-01-07 11:58] LABS: BEDSIDE GLUCOSE 318 MG/DL (80-115)
[2018-01-07] MEDS ORDERED: D5W 1,000 ML IV (12:00)
[2018-01-07] MEDS: LABETALOL HCL 100 MG/20 ML VIAL IV ×2 (12:44→19:40)
[2018-01-07] MEDS: DOXYCYCLINE HYCLATE 100 MG in D5W MINI-BAG PLUS 100 ML IV (13:45)
[2018-01-07 14:17] LABS: CSFLYM10 Absent (.); CSFLYM11 Absent (.); CSFLYM12 Negative (.); CSFLYM14 Absent (.); CSFLYM15 Absent (.); CSFLYM16 Absent (.); CSFLYM17 Negative (.); CSFLYM2 Absent (.); CSFLYM3 Absent (.); CSFLYM4 Absent (.); CSFLYM5 Absent (.); CSFLYM6 Present (.); CSFLYM7 Absent (.); CSFLYM8 Absent (.); CSFLYM9 Absent (.)
[2018-01-07 14:17] LABS: MYELIN BASIC PROTEIN, CSF 3.8 ng/mL (0.0-1.2)
[2018-01-07 17:16] LABS: BEDSIDE GLUCOSE 217 MG/DL (80-115)
[2018-01-07] MEDS: ACETAMINOPHEN 650 MG SUPP PR (20:37)
[2018-01-07 20:38] LABS: BEDSIDE GLUCOSE 184 MG/DL (80-115)
[2018-01-08] MEDS: HumaLOG INSULIN (NovoLOG) PER UNIT SC ×6 (01:00→21:13)
[2018-01-08] MEDS: DOXYCYCLINE HYCLATE 100 MG in D5W MINI-BAG PLUS 100 ML IV ×2 (02:12→13:12)
[2018-01-08 02:13] LABS: BEDSIDE GLUCOSE 157 MG/DL (80-115)
[2018-01-08 04:36] LABS: HEMATOCRIT 32.3 % (42.0-52.0); HEMOGLOBIN 9.8 g/dl (13.5-17.5); MEAN CORPUSCULAR HEMOGLOBIN 26.5 pg (27.0-33.0); MEAN CORPUSCULAR HGB CONC 30.3 g/dl (32.0-36.5); MEAN CORPUSCULAR VOLUME 87.3 fl (80.0-96.0); PLATELET COUNT, AUTOMATED 328 10^3/uL (150-450); RED CELL DISTRIBUTION WIDTH 15.3 % (11.5-14.5); WHITE BLOOD COUNT 11.4 10^3/uL (4.0-10.0)
[2018-01-08 04:57] LABS: ALBUMIN 2.2 GM/DL (3.2-5.2); ALBUMIN/GLOBULIN RATIO 0.37 (1.00-1.93); ALKALINE PHOSPHATASE 99 U/L (45-117); ALT/SGPT 52 U/L (12-78); ANION GAP 5 MEQ/L (8-16); AST/SGOT 47 U/L (7-37); BILIRUBIN,TOTAL 0.2 MG/DL (0.2-1.0); BLOOD UREA NITROGEN 71 MG/DL (7-18); C REACTIVE PROTEIN QUANTITATIV 6.56 MG/DL (0.00-0.30); CALCIUM LEVEL 9.1 MG/DL (8.8-10.2); CARBON DIOXIDE LEVEL 25 MEQ/L (21-32); CHLORIDE LEVEL 114 MEQ/L (98-107); CREATININE FOR GFR 1.58 MG/DL (0.70-1.30); GLOMERULAR FILTRATION RATE 46.7 (>49); GLUCOSE, FASTING 178 MG/DL (70-100); POTASSIUM SERUM 4.1 MEQ/L (3.5-5.1); SODIUM LEVEL 144 MEQ/L (136-145); TOTAL PROTEIN 8.1 GM/DL (6.4-8.2)
[2018-01-08] MEDS: NYSTATIN 500,000 U/5 ML SUSP UDC SS ×4 (05:33→18:21)
[2018-01-08] MEDS: hydrALAZINE INJ 20 MG/ML VIAL IV (05:49)
[2018-01-08] MEDS: HEPARIN SOD (PORCINE) 5000 UNITS/ML VIAL SQ ×3 (05:49→21:13)
[2018-01-08 05:53] LABS: BEDSIDE GLUCOSE 192 MG/DL (80-115)
[2018-01-08] MEDS: IPRATROPIUM 0.5MG/ALBUTEROL 2.5MG INH SOL UD 3ML (DUONEB)(J7620) NEB (07:35)
[2018-01-08 08:23] LABS: BEDSIDE GLUCOSE 209 MG/DL (80-115)
[2018-01-08] MEDS: PANTOPRAZOLE 40MG INJ (PROTONIX) (C9113) IV (09:02)
[2018-01-08] MEDS: ASPIRIN 81 MG CHEW TABLET GT (09:02)
[2018-01-08] MEDS: LABETALOL HCL 100 MG/20 ML VIAL IV (09:03)
[2018-01-08] MEDS: LEVEMIR (INSULIN DETEMIR) 1 UNITS/0.01ML SC (09:03)
[2018-01-08] MEDS: BISACODYL 10 MG SUPP PR (09:04)
[2018-01-08] MEDS: BACITRACIN OINT 30GM TOP (09:04)
[2018-01-08] MEDS: DOCUSATE SOD LIQ 100MG/10ML UDC GT ×2 (09:05→21:12)
[2018-01-08 13:10] LABS: BEDSIDE GLUCOSE 239 MG/DL (80-115)
[2018-01-08 13:33] LABS: URIC ACID 9.1 MG/DL (3.5-7.2)
[2018-01-08] MEDS: METOPROLOL TART 50 MG TAB PO (14:45)
[2018-01-08] MEDS: ANALGESIC BALM CRM 120 GM TOP (15:28)
[2018-01-08] MEDS: ACETAMINOPHEN TAB 650MG DOSE (2X325MG) PO ×2 (15:41→21:14)
[2018-01-08 17:10] LABS: BEDSIDE GLUCOSE 212 MG/DL (80-115)
[2018-01-08 20:27] LABS: BEDSIDE GLUCOSE 192 MG/DL (80-115)
[2018-01-08] MEDS: predniSONE 20 MG TAB PO (21:14)
[2018-01-09 00:37] LABS: BEDSIDE GLUCOSE 176 MG/DL (80-115)
[2018-01-09] MEDS: NYSTATIN 500,000 U/5 ML SUSP UDC SS ×4 (00:59→18:00)
[2018-01-09] MEDS: HumaLOG INSULIN (NovoLOG) PER UNIT SC ×5 (00:59→21:00)
[2018-01-09] MEDS: DOXYCYCLINE HYCLATE 100 MG in D5W MINI-BAG PLUS 100 ML IV ×2 (00:59→13:11)
[2018-01-09 04:57] LABS: BEDSIDE GLUCOSE 184 MG/DL (80-115)
[2018-01-09] MEDS: ACETAMINOPHEN TAB 650MG DOSE (2X325MG) PO (05:14)
[2018-01-09] MEDS: HEPARIN SOD (PORCINE) 5000 UNITS/ML VIAL SQ ×3 (05:14→21:32)
[2018-01-09 07:51] LABS: ALBUMIN 2.2 GM/DL (3.2-5.2); ALBUMIN/GLOBULIN RATIO 0.37 (1.00-1.93); ALKALINE PHOSPHATASE 99 U/L (45-117); ALT/SGPT 44 U/L (12-78); ANION GAP 8 MEQ/L (8-16); AST/SGOT 36 U/L (7-37); BILIRUBIN,TOTAL 0.3 MG/DL (0.2-1.0); BLOOD UREA NITROGEN 71 MG/DL (7-18); C REACTIVE PROTEIN QUANTITATIV 6.19 MG/DL (0.00-0.30); CALCIUM LEVEL 8.7 MG/DL (8.8-10.2); CARBON DIOXIDE LEVEL 25 MEQ/L (21-32); CHLORIDE LEVEL 109 MEQ/L (98-107); GLUCOSE, FASTING 191 MG/DL (70-100); POTASSIUM SERUM 3.9 MEQ/L (3.5-5.1); SODIUM LEVEL 142 MEQ/L (136-145); TOTAL PROTEIN 8.1 GM/DL (6.4-8.2)
[2018-01-09] MEDS: ALBUTEROL SULFATE 2.5 MG/0.5 ML INH NEB SOLN NEB (07:56)
[2018-01-09] MEDS: DOCUSATE SOD LIQ 100MG/10ML UDC GT ×2 (09:00→21:31)
[2018-01-09] MEDS: BISACODYL 10 MG SUPP PR (09:00)
[2018-01-09 09:08] LABS: BEDSIDE GLUCOSE 206 MG/DL (80-115)
[2018-01-09 09:21] LABS: BASO # 0.1 10^3/uL (0.0-0.2); BASO % 0.5 % (0.0-1.0); EOS % 0.3 % (0.0-3.0); HEMATOCRIT 30.9 % (42.0-52.0); HEMOGLOBIN 9.8 g/dl (13.5-17.5); IMMATURE GRANULOCYTE % 0.7 % (0-3.0); LYMPH # 1.1 10^3/uL (1.5-4.5); LYMPH % 9.7 % (24.0-44.0); MEAN CORPUSCULAR HEMOGLOBIN 27.1 pg (27.0-33.0); MEAN CORPUSCULAR HGB CONC 31.7 g/dl (32.0-36.5); MEAN CORPUSCULAR VOLUME 85.4 fl (80.0-96.0); MONO # 0.6 10^3/uL (0.0-0.8); NEUTROPHILS # 9.5 10^3/uL (1.8-7.7); NEUTROPHILS % 83.8 % (36.0-66.0); PLATELET COUNT, AUTOMATED 349 10^3/uL (150-450); RED BLOOD COUNT 3.62 10^6/uL (4.30-6.10); RED CELL DISTRIBUTION WIDTH 15.1 % (11.5-14.5); WHITE BLOOD COUNT 11.3 10^3/uL (4.0-10.0)
[2018-01-09] MEDS: LEVEMIR (INSULIN DETEMIR) 1 UNITS/0.01ML SC (09:35)
[2018-01-09] MEDS: predniSONE 20 MG TAB PO ×2 (09:36→21:32)
[2018-01-09] MEDS: METOPROLOL TART 50 MG TAB PO (09:36)
[2018-01-09] MEDS: ASPIRIN 81 MG CHEW TABLET GT (09:36)
[2018-01-09] MEDS: PANTOPRAZOLE 40MG INJ (PROTONIX) (C9113) IV (09:36)
[2018-01-09] MEDS: BACITRACIN OINT 30GM TOP (09:42)
[2018-01-09 13:00] LABS: BEDSIDE GLUCOSE 195 MG/DL (80-115)
[2018-01-09 17:33] LABS: BEDSIDE GLUCOSE 296 MG/DL (80-115)
[2018-01-09 21:14] LABS: BEDSIDE GLUCOSE 201 MG/DL (80-115)
[2018-01-09] MEDS: DOXYCYCLINE HYCLATE 100 MG TAB PO (21:32)
[2018-01-10] MEDS: NYSTATIN 500,000 U/5 ML SUSP UDC SS ×5 (00:42→23:17)
[2018-01-10] MEDS: HEPARIN SOD (PORCINE) 5000 UNITS/ML VIAL SQ ×3 (05:24→21:38)
[2018-01-10 07:09] LABS: HEMATOCRIT 30.8 % (42.0-52.0); HEMOGLOBIN 9.8 g/dl (13.5-17.5); MEAN CORPUSCULAR HGB CONC 31.8 g/dl (32.0-36.5); MEAN CORPUSCULAR VOLUME 84.8 fl (80.0-96.0); PLATELET COUNT, AUTOMATED 355 10^3/uL (150-450); RED BLOOD COUNT 3.63 10^6/uL (4.30-6.10); WHITE BLOOD COUNT 10.9 10^3/uL (4.0-10.0)
[2018-01-10] MEDS: ALBUTEROL SULFATE 2.5 MG/0.5 ML INH NEB SOLN NEB (07:13)
[2018-01-10 07:24] LABS: ALBUMIN 2.4 GM/DL (3.2-5.2); ALBUMIN/GLOBULIN RATIO 0.41 (1.00-1.93); ALKALINE PHOSPHATASE 95 U/L (45-117); ALT/SGPT 42 U/L (12-78); ANION GAP 9 MEQ/L (8-16); AST/SGOT 33 U/L (7-37); BILIRUBIN,TOTAL 0.3 MG/DL (0.2-1.0); BLOOD UREA NITROGEN 74 MG/DL (7-18); C REACTIVE PROTEIN QUANTITATIV 3.72 MG/DL (0.00-0.30); CALCIUM LEVEL 8.7 MG/DL (8.8-10.2); CARBON DIOXIDE LEVEL 23 MEQ/L (21-32); CHLORIDE LEVEL 107 MEQ/L (98-107); CREATININE FOR GFR 1.65 MG/DL (0.70-1.30); GLOMERULAR FILTRATION RATE 44.4 (>49); GLUCOSE, FASTING 236 MG/DL (70-100); POTASSIUM SERUM 4.3 MEQ/L (3.5-5.1); SODIUM LEVEL 139 MEQ/L (136-145); TOTAL PROTEIN 8.2 GM/DL (6.4-8.2)
[2018-01-10] MEDS: BISACODYL 10 MG SUPP PR (09:00)
[2018-01-10] MEDS: DOCUSATE SOD LIQ 100MG/10ML UDC GT ×2 (09:00→19:31)
[2018-01-10] MEDS: LEVEMIR (INSULIN DETEMIR) 1 UNITS/0.01ML SC (09:10)
[2018-01-10] MEDS: ASPIRIN 81 MG CHEW TABLET GT (09:11)
[2018-01-10] MEDS: PANTOPRAZOLE 40MG INJ (PROTONIX) (C9113) IV (09:11)
[2018-01-10] MEDS: HumaLOG INSULIN (NovoLOG) PER UNIT SC ×4 (09:11→20:46)
[2018-01-10] MEDS: METOPROLOL TART 50 MG TAB PO (09:12)
[2018-01-10] MEDS: predniSONE 20 MG TAB PO ×2 (09:12→20:44)
[2018-01-10] MEDS: BACITRACIN OINT 30GM TOP (09:13)
[2018-01-10] MEDS: DOXYCYCLINE HYCLATE 100 MG TAB PO ×2 (09:13→20:44)
[2018-01-10] MEDS: ANALGESIC BALM CRM 120 GM TOP (09:14)
[2018-01-10 11:17] LABS: BEDSIDE GLUCOSE 199 MG/DL (80-115)
[2018-01-10 17:23] LABS: BEDSIDE GLUCOSE 243 MG/DL (80-115)
[2018-01-10] MEDS: FERROUS GLUCONATE 324 MG TAB PO (18:06)
[2018-01-10 20:13] LABS: BEDSIDE GLUCOSE 258 MG/DL (80-115)
[2018-01-11] MEDS: NYSTATIN 500,000 U/5 ML SUSP UDC SS ×4 (05:24→17:21)
[2018-01-11] MEDS: HEPARIN SOD (PORCINE) 5000 UNITS/ML VIAL SQ ×3 (05:35→21:43)
[2018-01-11 06:37] LABS: HEMATOCRIT 31.2 % (42.0-52.0); HEMOGLOBIN 9.8 g/dl (13.5-17.5); MEAN CORPUSCULAR HEMOGLOBIN 26.6 pg (27.0-33.0); MEAN CORPUSCULAR HGB CONC 31.4 g/dl (32.0-36.5); MEAN CORPUSCULAR VOLUME 84.8 fl (80.0-96.0); PLATELET COUNT, AUTOMATED 347 10^3/uL (150-450); RED BLOOD COUNT 3.68 10^6/uL (4.30-6.10)
[2018-01-11 06:55] LABS: ALBUMIN 2.4 GM/DL (3.2-5.2); ALBUMIN/GLOBULIN RATIO 0.43 (1.00-1.93); ALKALINE PHOSPHATASE 88 U/L (45-117); ALT/SGPT 39 U/L (12-78); ANION GAP 8 MEQ/L (8-16); AST/SGOT 34 U/L (7-37); BILIRUBIN,TOTAL 0.2 MG/DL (0.2-1.0); BLOOD UREA NITROGEN 70 MG/DL (7-18); C REACTIVE PROTEIN QUANTITATIV 1.86 MG/DL (0.00-0.30); CALCIUM LEVEL 8.4 MG/DL (8.8-10.2); CARBON DIOXIDE LEVEL 23 MEQ/L (21-32); CHLORIDE LEVEL 109 MEQ/L (98-107); CREATININE FOR GFR 1.57 MG/DL (0.70-1.30); GLUCOSE, FASTING 203 MG/DL (70-100); POTASSIUM SERUM 4.4 MEQ/L (3.5-5.1); SODIUM LEVEL 140 MEQ/L (136-145)
[2018-01-11] MEDS: HumaLOG INSULIN (NovoLOG) PER UNIT SC ×4 (08:21→21:00)
[2018-01-11] MEDS: METOPROLOL TART 50 MG TAB PO ×2 (08:22→21:44)
[2018-01-11] MEDS: SPIRONOLACTONE 25 MG TAB PO (08:22)
[2018-01-11] MEDS: FERROUS GLUCONATE 324 MG TAB PO (08:22)
[2018-01-11] MEDS: ASPIRIN 81 MG CHEW TABLET GT (08:22)
[2018-01-11] MEDS: LEVEMIR (INSULIN DETEMIR) 1 UNITS/0.01ML SC (08:22)
[2018-01-11] MEDS: DOXYCYCLINE HYCLATE 100 MG TAB PO ×2 (08:23→21:44)
[2018-01-11] MEDS: BISACODYL 10 MG SUPP PR (08:23)
[2018-01-11] MEDS: DOCUSATE SOD LIQ 100MG/10ML UDC GT ×2 (08:23→21:00)
[2018-01-11] MEDS: BACITRACIN OINT 30GM TOP (08:23)
[2018-01-11] MEDS: predniSONE 20 MG TAB PO ×2 (08:23→21:44)
[2018-01-11] MEDS: PANTOPRAZOLE 40MG TAB (PROTONIX) PO (08:23)
[2018-01-11] MEDS: ACETAMINOPHEN TAB 650MG DOSE (2X325MG) PO ×3 (10:00→22:17)
[2018-01-11 11:39] LABS: BEDSIDE GLUCOSE 160 MG/DL (80-115)
[2018-01-11] MEDS: ANALGESIC BALM CRM 120 GM TOP (16:10)
[2018-01-11 16:40] LABS: BEDSIDE GLUCOSE 159 MG/DL (80-115)
[2018-01-11 20:23] LABS: BEDSIDE GLUCOSE 167 MG/DL (80-115)
[2018-01-12] MEDS: ANALGESIC BALM CRM 120 GM TOP (00:32)
[2018-01-12] MEDS: diphenhydrAMINE 50 MG CAP PO (02:52)
[2018-01-12] MEDS: HEPARIN SOD (PORCINE) 5000 UNITS/ML VIAL SQ ×3 (05:37→21:40)
[2018-01-12] MEDS: NYSTATIN 500,000 U/5 ML SUSP UDC SS ×2 (05:37)
[2018-01-12 06:31] LABS: HEMOGLOBIN 10.3 g/dl (13.5-17.5); MEAN CORPUSCULAR HEMOGLOBIN 26.9 pg (27.0-33.0); MEAN CORPUSCULAR HGB CONC 32.2 g/dl (32.0-36.5); MEAN CORPUSCULAR VOLUME 83.6 fl (80.0-96.0); PLATELET COUNT, AUTOMATED 364 10^3/uL (150-450); RED BLOOD COUNT 3.83 10^6/uL (4.30-6.10); RED CELL DISTRIBUTION WIDTH 15.1 % (11.5-14.5); WHITE BLOOD COUNT 10.6 10^3/uL (4.0-10.0)
[2018-01-12 06:53] LABS: ALBUMIN 2.3 GM/DL (3.2-5.2); ALBUMIN/GLOBULIN RATIO 0.43 (1.00-1.93); ALKALINE PHOSPHATASE 92 U/L (45-117); ALT/SGPT 40 U/L (12-78); ANION GAP 7 MEQ/L (8-16); AST/SGOT 27 U/L (7-37); BILIRUBIN,TOTAL 0.4 MG/DL (0.2-1.0); BLOOD UREA NITROGEN 68 MG/DL (7-18); C REACTIVE PROTEIN QUANTITATIV 1.13 MG/DL (0.00-0.30); CALCIUM LEVEL 8.4 MG/DL (8.8-10.2); CARBON DIOXIDE LEVEL 22 MEQ/L (21-32); CHLORIDE LEVEL 109 MEQ/L (98-107); CREATININE FOR GFR 1.53 MG/DL (0.70-1.30); GLOMERULAR FILTRATION RATE 48.4 (>49); GLUCOSE, FASTING 186 MG/DL (70-100); POTASSIUM SERUM 4.5 MEQ/L (3.5-5.1); SODIUM LEVEL 138 MEQ/L (136-145); TOTAL PROTEIN 7.7 GM/DL (6.4-8.2)
[2018-01-12] MEDS: METOPROLOL TART 50 MG TAB PO ×2 (08:12→21:41)
[2018-01-12] MEDS: SPIRONOLACTONE 25 MG TAB PO (08:12)
[2018-01-12] MEDS: ACETAMINOPHEN TAB 650MG DOSE (2X325MG) PO ×3 (08:12→21:41)
[2018-01-12] MEDS: ASPIRIN 81 MG CHEW TABLET GT (08:12)
[2018-01-12] MEDS: LEVEMIR (INSULIN DETEMIR) 1 UNITS/0.01ML SC (08:13)
[2018-01-12] MEDS: PANTOPRAZOLE 40MG TAB (PROTONIX) PO (08:13)
[2018-01-12] MEDS: DOXYCYCLINE HYCLATE 100 MG TAB PO ×2 (08:13→21:41)
[2018-01-12] MEDS: FERROUS GLUCONATE 324 MG TAB PO (08:13)
[2018-01-12] MEDS: HumaLOG INSULIN (NovoLOG) PER UNIT SC ×4 (08:14→21:00)
[2018-01-12] MEDS: BACITRACIN OINT 30GM TOP (08:15)
[2018-01-12] MEDS: BISACODYL 10 MG SUPP PR (08:24)
[2018-01-12] MEDS: DOCUSATE SOD LIQ 100MG/10ML UDC GT ×2 (08:30→21:00)
[2018-01-12 11:43] LABS: BEDSIDE GLUCOSE 165 MG/DL (80-115)
[2018-01-12 16:28] LABS: BEDSIDE GLUCOSE 167 MG/DL (80-115)
[2018-01-12 19:58] LABS: BEDSIDE GLUCOSE 211 MG/DL (80-115)
[2018-01-12] MEDS ORDERED: DOCUSATE SOD LIQ 100MG/10ML UDC GT (21:00)
[2018-01-12] MEDS: LOPERAMIDE 2 MG CAP PO (21:42)
[2018-01-13] MEDS: ANALGESIC BALM CRM 120 GM TOP (03:31)
[2018-01-13] MEDS: ACETAMINOPHEN TAB 650MG DOSE (2X325MG) PO ×3 (04:35→22:41)
[2018-01-13] MEDS: HEPARIN SOD (PORCINE) 5000 UNITS/ML VIAL SQ ×3 (05:35→22:41)
[2018-01-13 06:50] LABS: HEMATOCRIT 34.7 % (42.0-52.0); HEMOGLOBIN 10.9 g/dl (13.5-17.5); MEAN CORPUSCULAR HEMOGLOBIN 26.6 pg (27.0-33.0); MEAN CORPUSCULAR HGB CONC 31.4 g/dl (32.0-36.5); MEAN CORPUSCULAR VOLUME 84.6 fl (80.0-96.0); PLATELET COUNT, AUTOMATED 384 10^3/uL (150-450); RED CELL DISTRIBUTION WIDTH 15.3 % (11.5-14.5); WHITE BLOOD COUNT 9.7 10^3/uL (4.0-10.0)
[2018-01-13 07:15] LABS: ALBUMIN 2.6 GM/DL (3.2-5.2); ALBUMIN/GLOBULIN RATIO 0.53 (1.00-1.93); ALKALINE PHOSPHATASE 89 U/L (45-117); ALT/SGPT 36 U/L (12-78); ANION GAP 10 MEQ/L (8-16); AST/SGOT 24 U/L (7-37); BILIRUBIN,TOTAL 0.3 MG/DL (0.2-1.0); BLOOD UREA NITROGEN 72 MG/DL (7-18); C REACTIVE PROTEIN QUANTITATIV 0.71 MG/DL (0.00-0.30); CALCIUM LEVEL 8.6 MG/DL (8.8-10.2); CARBON DIOXIDE LEVEL 20 MEQ/L (21-32); CHLORIDE LEVEL 109 MEQ/L (98-107); CREATININE FOR GFR 1.62 MG/DL (0.70-1.30); GLOMERULAR FILTRATION RATE 45.3 (>49); GLUCOSE, FASTING 150 MG/DL (70-100); POTASSIUM SERUM 4.6 MEQ/L (3.5-5.1); SODIUM LEVEL 139 MEQ/L (136-145); TOTAL PROTEIN 7.5 GM/DL (6.4-8.2)
[2018-01-13] MEDS: HumaLOG INSULIN (NovoLOG) PER UNIT SC ×4 (07:30→21:00)
[2018-01-13] MEDS: DOXYCYCLINE HYCLATE 100 MG TAB PO (08:27)
[2018-01-13] MEDS: FERROUS GLUCONATE 324 MG TAB PO (08:27)
[2018-01-13] MEDS: SPIRONOLACTONE 25 MG TAB PO (08:27)
[2018-01-13] MEDS: ASPIRIN 81 MG CHEW TABLET GT (08:28)
[2018-01-13] MEDS: PANTOPRAZOLE 40MG TAB (PROTONIX) PO (08:28)
[2018-01-13] MEDS: METOPROLOL TART 50 MG TAB PO ×2 (08:28→22:41)
[2018-01-13] MEDS: LEVEMIR (INSULIN DETEMIR) 1 UNITS/0.01ML SC (08:28)
[2018-01-13] MEDS: BACITRACIN OINT 30GM TOP (08:29)
[2018-01-13] MEDS ORDERED: BISACODYL 10 MG SUPP PR (09:00)
[2018-01-13 11:35] LABS: BEDSIDE GLUCOSE 157 MG/DL (80-115)
[2018-01-13] MEDS: ULTRACET TAB PO (16:38)
[2018-01-13 16:42] LABS: BEDSIDE GLUCOSE 151 MG/DL (80-115)
[2018-01-13 20:14] LABS: BEDSIDE GLUCOSE 127 MG/DL (80-115)
[2018-01-13] MEDS: LORazepam 0.5 MG TAB PO (22:40)
[2018-01-13] MEDS: LACTOBACILLUS ACIDOPHILUS CAP (BACID) PO (22:41)
[2018-01-14] MEDS ORDERED: ULTRACET TAB As Ordered (00:14)
[2018-01-14] MEDS: ULTRACET TAB PO ×4 (00:27→21:05)
[2018-01-14] MEDS: ACETAMINOPHEN TAB 650MG DOSE (2X325MG) PO ×2 (03:48→12:22)
[2018-01-14] MEDS: LORazepam 0.5 MG TAB PO ×2 (03:48→22:16)
[2018-01-14] MEDS: HEPARIN SOD (PORCINE) 5000 UNITS/ML VIAL SQ ×3 (05:48→21:04)
[2018-01-14 06:52] LABS: BASO # 0.1 10^3/uL (0.0-0.2); BASO % 0.7 % (0.0-1.0); EOS # 0.2 10^3/uL (0.0-0.50); EOS % 1.9 % (0.0-3.0); HEMATOCRIT 33.4 % (42.0-52.0); HEMOGLOBIN 10.8 g/dl (13.5-17.5); IMMATURE GRANULOCYTE % 0.5 % (0-3.0); LYMPH # 1.5 10^3/uL (1.5-4.5); LYMPH % 17.7 % (24.0-44.0); MEAN CORPUSCULAR HGB CONC 32.3 g/dl (32.0-36.5); MEAN CORPUSCULAR VOLUME 83.5 fl (80.0-96.0); MONO # 0.6 10^3/uL (0.0-0.8); MONO % 6.9 % (0.0-5.0); NEUTROPHILS # 6.1 10^3/uL (1.8-7.7); NEUTROPHILS % 72.3 % (36.0-66.0); PLATELET COUNT, AUTOMATED 379 10^3/uL (150-450); RED CELL DISTRIBUTION WIDTH 15.3 % (11.5-14.5); WHITE BLOOD COUNT 8.4 10^3/uL (4.0-10.0)
[2018-01-14 07:27] LABS: ALBUMIN 2.5 GM/DL (3.2-5.2); ALKALINE PHOSPHATASE 88 U/L (45-117); ALT/SGPT 33 U/L (12-78); ANION GAP 11 MEQ/L (8-16); AST/SGOT 24 U/L (7-37); BILIRUBIN,TOTAL 0.2 MG/DL (0.2-1.0); BLOOD UREA NITROGEN 62 MG/DL (7-18); CALCIUM LEVEL 8.5 MG/DL (8.8-10.2); CARBON DIOXIDE LEVEL 19 MEQ/L (21-32); CHLORIDE LEVEL 111 MEQ/L (98-107); CREATININE FOR GFR 1.65 MG/DL (0.70-1.30); GLOMERULAR FILTRATION RATE 44.4 (>49); GLUCOSE, FASTING 131 MG/DL (70-100); POTASSIUM SERUM 4.6 MEQ/L (3.5-5.1); SODIUM LEVEL 141 MEQ/L (136-145); TOTAL PROTEIN 7.5 GM/DL (6.4-8.2)
[2018-01-14] MEDS: HumaLOG INSULIN (NovoLOG) PER UNIT SC ×5 (07:30→20:54)
[2018-01-14] MEDS: SPIRONOLACTONE 25 MG TAB PO (08:51)
[2018-01-14] MEDS: FERROUS GLUCONATE 324 MG TAB PO (08:52)
[2018-01-14] MEDS: LACTOBACILLUS ACIDOPHILUS CAP (BACID) PO ×2 (08:52→21:05)
[2018-01-14] MEDS: PANTOPRAZOLE 40MG TAB (PROTONIX) PO (08:52)
[2018-01-14] MEDS: METOPROLOL TART 50 MG TAB PO ×2 (08:52→21:05)
[2018-01-14] MEDS: LEVEMIR (INSULIN DETEMIR) 1 UNITS/0.01ML SC (08:53)
[2018-01-14] MEDS: ASPIRIN 81 MG CHEW TABLET GT (08:53)
[2018-01-14] MEDS: BACITRACIN OINT 30GM TOP (08:54)
[2018-01-14] MEDS: ANALGESIC BALM CRM 120 GM TOP (10:30)
[2018-01-14 11:56] LABS: BEDSIDE GLUCOSE 156 MG/DL (80-115)
[2018-01-14] MEDS: NYSTATIN 100,000 UNITS/GM TOPICAL PWD 15 GM TOP ×2 (11:58→21:05)
[2018-01-14 17:11] LABS: BEDSIDE GLUCOSE 135 MG/DL (80-115)
[2018-01-14 20:51] LABS: BEDSIDE GLUCOSE 117 MG/DL (80-115)
[2018-01-15] MEDS: ANALGESIC BALM CRM 120 GM TOP (01:22)
[2018-01-15] MEDS: ACETAMINOPHEN TAB 650MG DOSE (2X325MG) PO ×3 (01:27→14:25)
[2018-01-15] MEDS: HEPARIN SOD (PORCINE) 5000 UNITS/ML VIAL SQ ×3 (04:58→21:50)
[2018-01-15] MEDS: ULTRACET TAB PO ×3 (05:12→18:50)
[2018-01-15 05:26] LABS: BEDSIDE GLUCOSE 126 MG/DL (80-115)
[2018-01-15] MEDS: HumaLOG INSULIN (NovoLOG) PER UNIT SC ×4 (07:30→21:00)
[2018-01-15] MEDS: ASPIRIN 81 MG CHEW TABLET GT (08:56)
[2018-01-15] MEDS: PANTOPRAZOLE 40MG TAB (PROTONIX) PO (08:56)
[2018-01-15] MEDS: METOPROLOL TART 50 MG TAB PO ×2 (08:56→21:49)
[2018-01-15] MEDS: LACTOBACILLUS ACIDOPHILUS CAP (BACID) PO ×2 (08:56→21:49)
[2018-01-15] MEDS: FERROUS GLUCONATE 324 MG TAB PO (08:57)
[2018-01-15] MEDS: LEVEMIR (INSULIN DETEMIR) 1 UNITS/0.01ML SC (08:57)
[2018-01-15] MEDS: SPIRONOLACTONE 25 MG TAB PO (08:57)
[2018-01-15] MEDS: NYSTATIN 100,000 UNITS/GM TOPICAL PWD 15 GM TOP ×2 (08:58→21:51)
[2018-01-15] MEDS: BACITRACIN OINT 30GM TOP (08:58)
[2018-01-15 11:15] LABS: BEDSIDE GLUCOSE 148 MG/DL (80-115)
[2018-01-15] MEDS ORDERED: NORCO, ANEXSIA 5/325MG TABLET (HYDROcodone/ACETAMINOPHEN) PO (14:00)
[2018-01-15 17:32] LABS: BEDSIDE GLUCOSE 121 MG/DL (80-115)
[2018-01-15 21:15] LABS: BEDSIDE GLUCOSE 102 MG/DL (80-115)
[2018-01-15] MEDS: AMITRIPTYLINE 25 MG TAB PO (21:49)
[2018-01-15] MEDS: PERCOCET 5MG/325MG TAB PO (21:51)
[2018-01-16] MEDS: PERCOCET 5MG/325MG TAB PO ×5 (02:21→18:17)
[2018-01-16] MEDS: HEPARIN SOD (PORCINE) 5000 UNITS/ML VIAL SQ ×3 (06:21→21:14)
[2018-01-16 06:26] LABS: BEDSIDE GLUCOSE 99 MG/DL (80-115)
[2018-01-16 07:23] LABS: ANION GAP 9 MEQ/L (8-16); BLOOD UREA NITROGEN 60 MG/DL (7-18); CALCIUM LEVEL 8.6 MG/DL (8.8-10.2); CARBON DIOXIDE LEVEL 20 MEQ/L (21-32); CHLORIDE LEVEL 111 MEQ/L (98-107); CREATININE FOR GFR 1.79 MG/DL (0.70-1.30); GLOMERULAR FILTRATION RATE 40.4 (>49); GLUCOSE, FASTING 93 MG/DL (70-100); MAGNESIUM LEVEL 2.3 MG/DL (1.8-2.4); POTASSIUM SERUM 4.9 MEQ/L (3.5-5.1); SODIUM LEVEL 140 MEQ/L (136-145)
[2018-01-16] MEDS: HumaLOG INSULIN (NovoLOG) PER UNIT SC ×4 (07:30→20:53)
[2018-01-16] MEDS: LEVEMIR (INSULIN DETEMIR) 1 UNITS/0.01ML SC (08:20)
[2018-01-16] MEDS: ASPIRIN 81 MG CHEW TABLET GT (08:21)
[2018-01-16] MEDS: LACTOBACILLUS ACIDOPHILUS CAP (BACID) PO ×2 (08:21→20:52)
[2018-01-16] MEDS: METOPROLOL TART 50 MG TAB PO ×2 (08:23→20:53)
[2018-01-16] MEDS: SPIRONOLACTONE 25 MG TAB PO (08:25)
[2018-01-16] MEDS: PANTOPRAZOLE 40MG TAB (PROTONIX) PO (08:25)
[2018-01-16] MEDS: FERROUS GLUCONATE 324 MG TAB PO (08:27)
[2018-01-16] MEDS: BACITRACIN OINT 30GM TOP (08:28)
[2018-01-16] MEDS: NYSTATIN 100,000 UNITS/GM TOPICAL PWD 15 GM TOP ×2 (08:28→20:53)
[2018-01-16] MEDS: ANALGESIC BALM CRM 120 GM TOP (11:09)
[2018-01-16 11:18] LABS: BEDSIDE GLUCOSE 112 MG/DL (80-115)
[2018-01-16 16:40] LABS: BEDSIDE GLUCOSE 82 MG/DL (80-115)
[2018-01-16 20:41] LABS: BEDSIDE GLUCOSE 79 MG/DL (80-115)
[2018-01-16] MEDS: SODIUM BICARBONATE 325 MG TAB PO (20:52)
[2018-01-16] MEDS: AMITRIPTYLINE 25 MG TAB PO (20:52)
[2018-01-16] MEDS: ACETAMINOPHEN TAB 650MG DOSE (2X325MG) PO (21:33)
[2018-01-16] MEDS: oxyCODONE 5MG TAB PO (22:20)
[2018-01-17] MEDS: LORazepam 0.5 MG TAB PO ×2 (02:45→22:28)
[2018-01-17] MEDS: oxyCODONE 5MG TAB PO ×2 (02:47→09:35)
[2018-01-17] MEDS: HEPARIN SOD (PORCINE) 5000 UNITS/ML VIAL SQ ×3 (05:51→22:27)
[2018-01-17 07:00] LABS: ANION GAP 11 MEQ/L (8-16); BLOOD UREA NITROGEN 61 MG/DL (7-18); CALCIUM LEVEL 8.7 MG/DL (8.8-10.2); CARBON DIOXIDE LEVEL 18 MEQ/L (21-32); CHLORIDE LEVEL 111 MEQ/L (98-107); CREATININE FOR GFR 1.91 MG/DL (0.70-1.30); GLOMERULAR FILTRATION RATE 37.5 (>49); GLUCOSE, FASTING 108 MG/DL (70-100); POTASSIUM SERUM 4.6 MEQ/L (3.5-5.1); SODIUM LEVEL 140 MEQ/L (136-145)
[2018-01-17] MEDS: HumaLOG INSULIN (NovoLOG) PER UNIT SC ×4 (07:30→21:00)
[2018-01-17] MEDS: SODIUM BICARBONATE 325 MG TAB PO ×2 (09:28→22:27)
[2018-01-17] MEDS: ASPIRIN 81 MG CHEW TABLET GT (09:29)
[2018-01-17] MEDS: PANTOPRAZOLE 40MG TAB (PROTONIX) PO (09:29)
[2018-01-17] MEDS: SPIRONOLACTONE 25 MG TAB PO (09:29)
[2018-01-17] MEDS: LACTOBACILLUS ACIDOPHILUS CAP (BACID) PO ×2 (09:29→22:27)
[2018-01-17] MEDS: FERROUS GLUCONATE 324 MG TAB PO (09:29)
[2018-01-17] MEDS: METOPROLOL TART 50 MG TAB PO ×2 (09:30→22:28)
[2018-01-17] MEDS: LEVEMIR (INSULIN DETEMIR) 1 UNITS/0.01ML SC (09:30)
[2018-01-17] MEDS: BACITRACIN OINT 30GM TOP (09:31)
[2018-01-17] MEDS: NYSTATIN 100,000 UNITS/GM TOPICAL PWD 15 GM TOP ×2 (09:31→22:28)
[2018-01-17] MEDS: ACETAMINOPHEN TAB 650MG DOSE (2X325MG) PO ×2 (11:50→22:27)
[2018-01-17 12:02] LABS: BEDSIDE GLUCOSE 209 MG/DL (80-115)
[2018-01-17 16:53] LABS: BEDSIDE GLUCOSE 99 MG/DL (80-115)
[2018-01-17] MEDS: SODIUM BICARBONATE 75 MEQ in NS 0.45% 1,000 ML IV (18:30)
[2018-01-17 21:36] LABS: BEDSIDE GLUCOSE 133 MG/DL (80-115)
[2018-01-17] MEDS: AMITRIPTYLINE 25 MG TAB PO (22:28)
[2018-01-18] MEDS: HEPARIN SOD (PORCINE) 5000 UNITS/ML VIAL SQ ×3 (05:17→20:53)
[2018-01-18] MEDS: oxyCODONE 5MG TAB PO ×3 (05:17→20:52)
[2018-01-18] MEDS: SODIUM BICARBONATE 75 MEQ in NS 0.45% 1,000 ML IV (05:18)
[2018-01-18 06:52] LABS: HEMATOCRIT 32.5 % (42.0-52.0); HEMOGLOBIN 10.4 g/dl (13.5-17.5); MEAN CORPUSCULAR HEMOGLOBIN 26.8 pg (27.0-33.0); MEAN CORPUSCULAR VOLUME 83.8 fl (80.0-96.0); PLATELET COUNT, AUTOMATED 321 10^3/uL (150-450); RED BLOOD COUNT 3.88 10^6/uL (4.30-6.10); RED CELL DISTRIBUTION WIDTH 16.3 % (11.5-14.5); WHITE BLOOD COUNT 6.7 10^3/uL (4.0-10.0)
[2018-01-18 07:12] LABS: ANION GAP 10 MEQ/L (8-16); BLOOD UREA NITROGEN 64 MG/DL (7-18); CALCIUM LEVEL 8.3 MG/DL (8.8-10.2); CARBON DIOXIDE LEVEL 19 MEQ/L (21-32); CHLORIDE LEVEL 110 MEQ/L (98-107); CREATININE FOR GFR 1.93 MG/DL (0.70-1.30); GLUCOSE, FASTING 117 MG/DL (70-100); POTASSIUM SERUM 4.3 MEQ/L (3.5-5.1); SODIUM LEVEL 139 MEQ/L (136-145)
[2018-01-18] MEDS: HumaLOG INSULIN (NovoLOG) PER UNIT SC ×4 (07:30→20:53)
[2018-01-18] MEDS: ANALGESIC BALM CRM 120 GM TOP (07:31)
[2018-01-18] MEDS: LEVEMIR (INSULIN DETEMIR) 1 UNITS/0.01ML SC (09:52)
[2018-01-18] MEDS: BACITRACIN OINT 30GM TOP (09:53)
[2018-01-18] MEDS: ASPIRIN 81 MG CHEW TABLET GT (09:53)
[2018-01-18] MEDS: NYSTATIN 100,000 UNITS/GM TOPICAL PWD 15 GM TOP ×2 (09:53→20:53)
[2018-01-18] MEDS: PANTOPRAZOLE 40MG TAB (PROTONIX) PO (09:53)
[2018-01-18] MEDS: SPIRONOLACTONE 25 MG TAB PO (09:54)
[2018-01-18] MEDS: LACTOBACILLUS ACIDOPHILUS CAP (BACID) PO ×2 (09:54→20:51)
[2018-01-18] MEDS: FERROUS GLUCONATE 324 MG TAB PO (09:54)
[2018-01-18] MEDS: SODIUM BICARBONATE 325 MG TAB PO ×2 (09:54→20:52)
[2018-01-18] MEDS: METOPROLOL TART 50 MG TAB PO ×2 (09:54→20:52)
[2018-01-18 12:09] LABS: BEDSIDE GLUCOSE 150 MG/DL (80-115)
[2018-01-18 17:11] LABS: BEDSIDE GLUCOSE 126 MG/DL (80-115)
[2018-01-18 20:00] LABS: BEDSIDE GLUCOSE 139 MG/DL (80-115)
[2018-01-18] MEDS: AMITRIPTYLINE 25 MG TAB PO (20:52)
[2018-01-19] MEDS: oxyCODONE 5MG TAB PO ×3 (02:49→17:37)
[2018-01-19] MEDS: LORazepam 0.5 MG TAB PO (02:49)
[2018-01-19] MEDS: HEPARIN SOD (PORCINE) 5000 UNITS/ML VIAL SQ ×3 (05:41→21:32)
[2018-01-19] MEDS: ACETAMINOPHEN TAB 650MG DOSE (2X325MG) PO (05:42)
[2018-01-19] MEDS: HumaLOG INSULIN (NovoLOG) PER UNIT SC ×4 (07:30→20:51)
[2018-01-19 08:16] LABS: ANION GAP 9 MEQ/L (8-16); BLOOD UREA NITROGEN 57 MG/DL (7-18); CALCIUM LEVEL 8.5 MG/DL (8.8-10.2); CARBON DIOXIDE LEVEL 22 MEQ/L (21-32); CHLORIDE LEVEL 109 MEQ/L (98-107); GLOMERULAR FILTRATION RATE 37.7 (>49); GLUCOSE, FASTING 118 MG/DL (70-100); POTASSIUM SERUM 4.9 MEQ/L (3.5-5.1); SODIUM LEVEL 140 MEQ/L (136-145)
[2018-01-19] MEDS: SODIUM BICARBONATE 325 MG TAB PO ×2 (09:55→21:31)
[2018-01-19] MEDS: SPIRONOLACTONE 25 MG TAB PO (09:55)
[2018-01-19] MEDS: ASPIRIN 81 MG CHEW TABLET GT (09:55)
[2018-01-19] MEDS: LACTOBACILLUS ACIDOPHILUS CAP (BACID) PO ×2 (09:55→21:31)
[2018-01-19] MEDS: PANTOPRAZOLE 40MG TAB (PROTONIX) PO (09:56)
[2018-01-19] MEDS: FERROUS GLUCONATE 324 MG TAB PO (09:56)
[2018-01-19] MEDS: LEVEMIR (INSULIN DETEMIR) 1 UNITS/0.01ML SC (09:57)
[2018-01-19] MEDS: NYSTATIN 100,000 UNITS/GM TOPICAL PWD 15 GM TOP ×2 (09:57→21:32)
[2018-01-19] MEDS: BACITRACIN OINT 30GM TOP (09:58)
[2018-01-19] MEDS: predniSONE 20 MG TAB PO ×2 (10:00→21:31)
[2018-01-19] MEDS: METOPROLOL TART 50 MG TAB PO ×2 (10:01→21:31)
[2018-01-19 10:34] LABS: URIC ACID 10.1 MG/DL (3.5-7.2)
[2018-01-19 11:49] LABS: BEDSIDE GLUCOSE 186 MG/DL (80-115)
[2018-01-19] MEDS: aMILoride 5 MG TAB PO (14:33)
[2018-01-19] MEDS: FEBUXOSTAT 40 MG TABLET (ULORIC) PO (14:34)
[2018-01-19 16:41] LABS: BEDSIDE GLUCOSE 212 MG/DL (80-115)
[2018-01-19 20:48] LABS: BEDSIDE GLUCOSE 142 MG/DL (80-115)
[2018-01-19] MEDS: AMITRIPTYLINE 25 MG TAB PO (21:30)
[2018-01-19] MEDS: TAMSULOSIN 0.4 MG CAP PO (21:31)
[2018-01-20] MEDS: HEPARIN SOD (PORCINE) 5000 UNITS/ML VIAL SQ ×3 (05:57→23:02)
[2018-01-20 06:38] LABS: BEDSIDE GLUCOSE 169 MG/DL (80-115)
[2018-01-20] MEDS: HumaLOG INSULIN (NovoLOG) PER UNIT SC ×5 (07:30→21:00)
[2018-01-20] MEDS: FEBUXOSTAT 40 MG TABLET (ULORIC) PO (08:25)
[2018-01-20] MEDS: ASPIRIN 81 MG CHEW TABLET GT (08:25)
[2018-01-20] MEDS: FERROUS GLUCONATE 324 MG TAB PO (08:25)
[2018-01-20] MEDS: aMILoride 5 MG TAB PO (08:25)
[2018-01-20] MEDS: predniSONE 20 MG TAB PO ×2 (08:25→23:01)
[2018-01-20] MEDS: SODIUM BICARBONATE 325 MG TAB PO ×2 (08:25→23:00)
[2018-01-20] MEDS: LEVEMIR (INSULIN DETEMIR) 1 UNITS/0.01ML SC (08:25)
[2018-01-20] MEDS: LACTOBACILLUS ACIDOPHILUS CAP (BACID) PO ×2 (08:25→23:00)
[2018-01-20] MEDS: NYSTATIN 100,000 UNITS/GM TOPICAL PWD 15 GM TOP ×2 (08:26→23:01)
[2018-01-20] MEDS: PANTOPRAZOLE 40MG TAB (PROTONIX) PO (08:26)
[2018-01-20] MEDS: METOPROLOL TART 50 MG TAB PO ×2 (08:26→23:00)
[2018-01-20] MEDS: ANALGESIC BALM CRM 120 GM TOP ×2 (08:26→23:02)
[2018-01-20] MEDS: BACITRACIN OINT 30GM TOP (08:27)
[2018-01-20 11:34] LABS: BEDSIDE GLUCOSE 169 MG/DL (80-115)
[2018-01-20 14:52] LABS: ALBUMIN 2.7 GM/DL (3.2-5.2); ALBUMIN/GLOBULIN RATIO 0.63 (1.00-1.93); ALKALINE PHOSPHATASE 87 U/L (45-117); ALT/SGPT 25 U/L (12-78); ANION GAP 12 MEQ/L (8-16); AST/SGOT 15 U/L (7-37); BILIRUBIN,TOTAL 0.3 MG/DL (0.2-1.0); BLOOD UREA NITROGEN 55 MG/DL (7-18); CALCIUM LEVEL 8.7 MG/DL (8.8-10.2); CARBON DIOXIDE LEVEL 20 MEQ/L (21-32); CHLORIDE LEVEL 106 MEQ/L (98-107); CREATININE FOR GFR 1.97 MG/DL (0.70-1.30); GLOMERULAR FILTRATION RATE 36.2 (>49); GLUCOSE, FASTING 183 MG/DL (70-100); SODIUM LEVEL 138 MEQ/L (136-145)
[2018-01-20 16:43] LABS: BEDSIDE GLUCOSE 178 MG/DL (80-115)
[2018-01-20 17:31] LABS: POTASSIUM SERUM 6.1 MEQ/L (3.5-5.1)
[2018-01-20] MEDS: SOD POLYSTYRENE SULFONATE SUSP 15 GM/60 ML UD PO (17:45)
[2018-01-20 21:15] LABS: BEDSIDE GLUCOSE 219 MG/DL (80-115)
[2018-01-20] MEDS: ACETAMINOPHEN TAB 650MG DOSE (2X325MG) PO (23:00)
[2018-01-20] MEDS: AMITRIPTYLINE 25 MG TAB PO (23:01)
[2018-01-20] MEDS: TAMSULOSIN 0.4 MG CAP PO (23:01)
[2018-01-21] MEDS: HEPARIN SOD (PORCINE) 5000 UNITS/ML VIAL SQ ×2 (05:11→14:00)
[2018-01-21] MEDS: MOM 30ML SUSPENSION UDC FT (05:30)
[2018-01-21 07:48] LABS: HEMATOCRIT 32.3 % (42.0-52.0); HEMOGLOBIN 10.4 g/dl (13.5-17.5); MEAN CORPUSCULAR HEMOGLOBIN 26.9 pg (27.0-33.0); MEAN CORPUSCULAR HGB CONC 32.2 g/dl (32.0-36.5); MEAN CORPUSCULAR VOLUME 83.5 fl (80.0-96.0); PLATELET COUNT, AUTOMATED 315 10^3/uL (150-450); RED BLOOD COUNT 3.87 10^6/uL (4.30-6.10); RED CELL DISTRIBUTION WIDTH 16.3 % (11.5-14.5); WHITE BLOOD COUNT 7.6 10^3/uL (4.0-10.0)
[2018-01-21 07:57] LABS: ALBUMIN 2.5 GM/DL (3.2-5.2); ALBUMIN/GLOBULIN RATIO 0.56 (1.00-1.93); ALKALINE PHOSPHATASE 79 U/L (45-117); ALT/SGPT 21 U/L (12-78); ANION GAP 9 MEQ/L (8-16); AST/SGOT 15 U/L (7-37); BILIRUBIN,TOTAL 0.2 MG/DL (0.2-1.0); BLOOD UREA NITROGEN 54 MG/DL (7-18); CALCIUM LEVEL 8.4 MG/DL (8.8-10.2); CARBON DIOXIDE LEVEL 21 MEQ/L (21-32); CHLORIDE LEVEL 108 MEQ/L (98-107); CREATININE FOR GFR 1.77 MG/DL (0.70-1.30); GLOMERULAR FILTRATION RATE 40.9 (>49); GLUCOSE, FASTING 220 MG/DL (70-100); SODIUM LEVEL 138 MEQ/L (136-145)
[2018-01-21 08:07] LABS: POTASSIUM SERUM 5.6 MEQ/L (3.5-5.1)
[2018-01-21] MEDS: FEBUXOSTAT 40 MG TABLET (ULORIC) PO (08:40)
[2018-01-21] MEDS: ASPIRIN 81 MG CHEW TABLET GT (08:40)
[2018-01-21] MEDS: predniSONE 20 MG TAB PO (08:41)
[2018-01-21] MEDS: METOPROLOL TART 50 MG TAB PO (08:41)
[2018-01-21] MEDS: LEVEMIR (INSULIN DETEMIR) 1 UNITS/0.01ML SC (08:41)
[2018-01-21] MEDS: PANTOPRAZOLE 40MG TAB (PROTONIX) PO (08:41)
[2018-01-21] MEDS: SODIUM BICARBONATE 325 MG TAB PO (08:41)
[2018-01-21] MEDS: LACTOBACILLUS ACIDOPHILUS CAP (BACID) PO (08:41)
[2018-01-21] MEDS: HumaLOG INSULIN (NovoLOG) PER UNIT SC ×2 (08:41→11:48)
[2018-01-21] MEDS: FERROUS GLUCONATE 324 MG TAB PO (08:41)
[2018-01-21] MEDS: NYSTATIN 100,000 UNITS/GM TOPICAL PWD 15 GM TOP (08:42)
[2018-01-21] MEDS: BACITRACIN OINT 30GM TOP (08:42)
[2018-01-21 11:31] LABS: BEDSIDE GLUCOSE 168 MG/DL (80-115)
[2018-01-21] MEDS: SOD POLYSTYRENE SULFONATE SUSP 15 GM/60 ML UD PO (11:48)
== END 2018-01-21 16:30 | DRG 564 ==
LOC: M MS5PR 01-08 14:49 → M ED 03:04 → M ED INP 07:19 → M MSPAV 08:31 → M ICU 15:53
PROC: 009U3ZX Drainage of Spinal Canal, Percutaneous Approach, Diagnostic (ICD-10-PCS; 2017-12-29)
PROC: 5A1955Z Respiratory Ventilation, Greater than 96 Consecutive Hours (ICD-10-PCS; principal; 2017-12-30)
PROC: 30233N1 Transfusion of Nonautologous Red Blood Cells into Peripheral Vein, Percutaneous Approach (ICD-10-PCS; 2018-01-03)
DX: T87.43 Infection of amputation stump, right lower extremity (principal); J96.00 Acute respiratory failure, unspecified whether with hypoxia or hypercapnia; G61.0 Guillain-Barre syndrome; L03.115 Cellulitis of right lower limb; N17.9 Acute kidney failure, unspecified; N18.4 Chronic kidney disease, stage 4 (severe); E87.2 Acidosis; R45.851 Suicidal ideations; E11.52 Type 2 diabetes mellitus with diabetic peripheral angiopathy with gangrene; I73.9 Peripheral vascular disease, unspecified; I48.91 Unspecified atrial fibrillation; T87.81 Dehiscence of amputation stump; E78.5 Hyperlipidemia, unspecified; I12.9 Hypertensive chronic kidney disease with stage 1 through stage 4 chronic kidney disease, or unspecified chronic kidney disease; K21.9 Gastro-esophageal reflux disease without esophagitis; D63.1 Anemia in chronic kidney disease; K59.00 Constipation, unspecified; H93.8X2 Other specified disorders of left ear; R19.7 Diarrhea, unspecified; Z79.899 Other long term (current) drug therapy; N28.9 Disorder of kidney and ureter, unspecified; E87.5 Hyperkalemia; F41.9 Anxiety disorder, unspecified; M51.36 Other intervertebral disc degeneration, lumbar region

== ENCOUNTER 2018-01-21 16:23 | Inpatient (IN) | payer OTHER, MEDICARE ==
[~2018-01-21 16:23] MED LIST changes: +ALBUTEROL SULFATE 2.5 MG/0.5 ML INH NEB SOLN NEB; +DEXTROSE 50% 50 ML SYRINGE IV; +FLEET ENEMA PR; +GLUCAGON FOR INJ 1 MG VIAL (J1610) SC; +GLUCOSE 4 GM CHEW TABLET PO; -HEPARIN 1,000 UNITS/ML 10ML VIAL (FOR RADIOLOGY& DIALYSIS ONLY) As Ordered; -ISOVUE-300 61% 50ML VIAL (Q9967) As Ordered; +LOPERAMIDE 2 MG CAP PO; +LORazepam 0.5 MG TAB PO; +MAALOX 30 ML SUSP *UDC PO; -MIDAZOLAM INJ 2 MG/2 ML VIAL (J2250) As Ordered; -fentaNYL 100 MCG/2 ML INJECTION (J3010) As Ordered
[2018-01-21 17:18] LABS: BEDSIDE GLUCOSE 209 MG/DL (80-115)
[2018-01-21] MEDS: HumaLOG INSULIN (NovoLOG) PER UNIT SC ×2 (17:30)
[2018-01-21 20:17] LABS: BEDSIDE GLUCOSE 228 MG/DL (80-115)
[2018-01-21] MEDS: METOPROLOL SUCC (TopROL XL) 50MG **XL** TAB PO ×2 (21:12)
[2018-01-21] MEDS: AMITRIPTYLINE 25 MG TAB PO ×2 (21:12)
[2018-01-21] MEDS: predniSONE 20 MG TAB PO ×2 (21:13)
[2018-01-21] MEDS: TAMSULOSIN 0.4 MG CAP PO ×2 (21:13)
[2018-01-21] MEDS: SODIUM BICARBONATE 325 MG TAB PO ×2 (21:13)
[2018-01-21] MEDS: LACTOBACILLUS ACIDOPHILUS CAP (BACID) PO ×2 (21:13)
[2018-01-21] MEDS: HEPARIN SOD (PORCINE) 5000 UNITS/ML VIAL SC ×2 (21:14)
[2018-01-21] MEDS: NYSTATIN 100,000 UNITS/GM TOPICAL PWD 15 GM TOP ×2 (21:15)
[2018-01-21] MEDS: ANALGESIC BALM CRM 120 GM TOP ×2 (21:19)
[2018-01-21] MEDS: ACETAMINOPHEN TAB 650MG DOSE (2X325MG) PO ×2 (21:22)
[2018-01-22] MEDS: HEPARIN SOD (PORCINE) 5000 UNITS/ML VIAL SC ×6 (05:48→22:05)
[2018-01-22] MEDS: oxyCODONE 5MG TAB PO ×2 (06:17)
[2018-01-22 07:00] LABS: BASO % 0.1 % (0.0-1.0); HEMATOCRIT 32.8 % (42.0-52.0); HEMOGLOBIN 10.5 g/dl (13.5-17.5); IMMATURE GRANULOCYTE % 0.4 % (0-3.0); LYMPH # 0.9 10^3/uL (1.5-4.5); LYMPH % 10.2 % (24.0-44.0); MEAN CORPUSCULAR HEMOGLOBIN 27.2 pg (27.0-33.0); MONO # 0.3 10^3/uL (0.0-0.8); MONO % 3.5 % (0.0-5.0); NEUTROPHILS # 7.1 10^3/uL (1.8-7.7); NEUTROPHILS % 85.8 % (36.0-66.0); PLATELET COUNT, AUTOMATED 304 10^3/uL (150-450); RED BLOOD COUNT 3.86 10^6/uL (4.30-6.10); RED CELL DISTRIBUTION WIDTH 16.2 % (11.5-14.5); WHITE BLOOD COUNT 8.3 10^3/uL (4.0-10.0)
[2018-01-22 07:19] LABS: ALBUMIN 2.5 GM/DL (3.2-5.2); ALBUMIN/GLOBULIN RATIO 0.54 (1.00-1.93); ALKALINE PHOSPHATASE 78 U/L (45-117); ALT/SGPT 25 U/L (12-78); ANION GAP 8 MEQ/L (8-16); AST/SGOT 19 U/L (7-37); BILIRUBIN,TOTAL 0.2 MG/DL (0.2-1.0); BLOOD UREA NITROGEN 55 MG/DL (7-18); CALCIUM LEVEL 8.3 MG/DL (8.8-10.2); CARBON DIOXIDE LEVEL 22 MEQ/L (21-32); CHLORIDE LEVEL 108 MEQ/L (98-107); CREATININE FOR GFR 1.78 MG/DL (0.70-1.30); GLOMERULAR FILTRATION RATE 40.7 (>49); GLUCOSE, FASTING 200 MG/DL (70-100); SODIUM LEVEL 138 MEQ/L (136-145); TOTAL PROTEIN 7.1 GM/DL (6.4-8.2)
[2018-01-22 07:21] LABS: POTASSIUM SERUM 5.9 MEQ/L (3.5-5.1)
[2018-01-22] MEDS: SANTYL OINT 30GM TOP ×2 (09:00)
[2018-01-22] MEDS: HumaLOG INSULIN (NovoLOG) PER UNIT SC ×6 (09:30→17:37)
[2018-01-22] MEDS: LEVEMIR (INSULIN DETEMIR) 1 UNITS/0.01ML SC ×2 (09:30)
[2018-01-22] MEDS: PANTOPRAZOLE 40MG TAB (PROTONIX) PO ×2 (09:31)
[2018-01-22] MEDS: SODIUM BICARBONATE 325 MG TAB PO ×4 (09:31→21:15)
[2018-01-22] MEDS: LACTOBACILLUS ACIDOPHILUS CAP (BACID) PO ×4 (09:31→21:15)
[2018-01-22] MEDS: FERROUS GLUCONATE 324 MG TAB PO ×2 (09:31)
[2018-01-22] MEDS: predniSONE 20 MG TAB PO ×4 (09:31→21:15)
[2018-01-22] MEDS: METOPROLOL SUCC (TopROL XL) 50MG **XL** TAB PO ×4 (09:31→21:16)
[2018-01-22] MEDS: VITAMIN D 1,000 INTERNATIONAL UNITS TABLET PO ×2 (09:31)
[2018-01-22] MEDS: ASPIRIN 81 MG ENTERIC TAB PO ×2 (09:32)
[2018-01-22] MEDS: FEBUXOSTAT 40 MG TABLET (ULORIC) PO ×2 (09:32)
[2018-01-22] MEDS: NYSTATIN 100,000 UNITS/GM TOPICAL PWD 15 GM TOP ×4 (09:33→21:16)
[2018-01-22] MEDS: BACITRACIN OINT 30GM TOP ×2 (09:33)
[2018-01-22 11:44] LABS: BEDSIDE GLUCOSE 196 MG/DL (80-115)
[2018-01-22] MEDS: PATIROMER SORBITEX CALCIUM 8.4 GM POWDER PACKET (VELTASSA) PO ×2 (12:42)
[2018-01-22 16:48] LABS: BEDSIDE GLUCOSE 252 MG/DL (80-115)
[2018-01-22 20:50] LABS: BEDSIDE GLUCOSE 207 MG/DL (80-115)
[2018-01-22] MEDS: AMITRIPTYLINE 25 MG TAB PO ×2 (21:16)
[2018-01-22] MEDS: TAMSULOSIN 0.4 MG CAP PO ×2 (21:16)
[2018-01-22] MEDS: ACETAMINOPHEN TAB 650MG DOSE (2X325MG) PO ×2 (21:18)
[2018-01-22] MEDS: ANALGESIC BALM CRM 120 GM TOP ×2 (22:04)
[2018-01-23] MEDS: ANALGESIC BALM CRM 120 GM TOP ×4 (04:48→20:44)
[2018-01-23] MEDS: oxyCODONE 5MG TAB PO ×8 (04:48→20:43)
[2018-01-23] MEDS: HEPARIN SOD (PORCINE) 5000 UNITS/ML VIAL SC ×6 (06:05→22:28)
[2018-01-23 06:24] LABS: BEDSIDE GLUCOSE 213 MG/DL (80-115)
[2018-01-23] MEDS: HumaLOG INSULIN (NovoLOG) PER UNIT SC ×6 (08:57→17:17)
[2018-01-23] MEDS: PANTOPRAZOLE 40MG TAB (PROTONIX) PO ×2 (08:57)
[2018-01-23] MEDS: LEVEMIR (INSULIN DETEMIR) 1 UNITS/0.01ML SC ×2 (08:57)
[2018-01-23] MEDS: amLODIPine 5 MG TAB PO ×2 (08:58)
[2018-01-23] MEDS: LACTOBACILLUS ACIDOPHILUS CAP (BACID) PO ×4 (08:58→20:43)
[2018-01-23] MEDS: SODIUM BICARBONATE 325 MG TAB PO ×4 (08:58→20:43)
[2018-01-23] MEDS: FERROUS GLUCONATE 324 MG TAB PO ×2 (08:58)
[2018-01-23] MEDS: ASPIRIN 81 MG ENTERIC TAB PO ×2 (08:58)
[2018-01-23] MEDS: METOPROLOL SUCC (TopROL XL) 50MG **XL** TAB PO ×4 (08:58→20:43)
[2018-01-23] MEDS: VITAMIN D 1,000 INTERNATIONAL UNITS TABLET PO ×2 (08:58)
[2018-01-23] MEDS: predniSONE 20 MG TAB PO ×4 (08:58→20:43)
[2018-01-23] MEDS: BACITRACIN OINT 30GM TOP ×2 (08:59)
[2018-01-23] MEDS: SANTYL OINT 30GM TOP ×2 (08:59)
[2018-01-23] MEDS: NYSTATIN 100,000 UNITS/GM TOPICAL PWD 15 GM TOP ×4 (08:59→21:00)
[2018-01-23] MEDS: FEBUXOSTAT 40 MG TABLET (ULORIC) PO ×2 (08:59)
[2018-01-23 09:59] LABS: ANION GAP 10 MEQ/L (8-16); BLOOD UREA NITROGEN 55 MG/DL (7-18); CALCIUM LEVEL 9.1 MG/DL (8.8-10.2); CARBON DIOXIDE LEVEL 21 MEQ/L (21-32); CHLORIDE LEVEL 107 MEQ/L (98-107); CREATININE FOR GFR 1.81 MG/DL (0.70-1.30); GLOMERULAR FILTRATION RATE 39.9 (>49); GLUCOSE, FASTING 212 MG/DL (70-100); SODIUM LEVEL 138 MEQ/L (136-145)
[2018-01-23 10:00] LABS: POTASSIUM SERUM 5.8 MEQ/L (3.5-5.1)
[2018-01-23] MEDS: LIDOCAINE 5% (LIDODERM) PATCH TD ×2 (10:03)
[2018-01-23 12:18] LABS: BEDSIDE GLUCOSE 174 MG/DL (80-115)
[2018-01-23] MEDS: PATIROMER SORBITEX CALCIUM 8.4 GM POWDER PACKET (VELTASSA) PO ×2 (12:38)
[2018-01-23 17:04] LABS: BEDSIDE GLUCOSE 235 MG/DL (80-115)
[2018-01-23] MEDS: AMITRIPTYLINE 25 MG TAB PO ×2 (20:42)
[2018-01-23] MEDS: TAMSULOSIN 0.4 MG CAP PO ×2 (20:42)
[2018-01-23] MEDS: **NOTE PATIENT COMMENT** MISC XX ×2 (20:44)
[2018-01-24] MEDS: oxyCODONE 5MG TAB PO ×8 (02:19→22:16)
[2018-01-24] MEDS: HEPARIN SOD (PORCINE) 5000 UNITS/ML VIAL SC ×6 (06:03→21:29)
[2018-01-24 07:05] LABS: BEDSIDE GLUCOSE 214 MG/DL (80-115)
[2018-01-24] MEDS: LIDOCAINE 5% (LIDODERM) PATCH TD ×2 (08:45)
[2018-01-24] MEDS: PANTOPRAZOLE 40MG TAB (PROTONIX) PO ×2 (08:46)
[2018-01-24] MEDS: HumaLOG INSULIN (NovoLOG) PER UNIT SC ×6 (08:46→18:05)
[2018-01-24] MEDS: FEBUXOSTAT 40 MG TABLET (ULORIC) PO ×2 (08:46)
[2018-01-24] MEDS: LEVEMIR (INSULIN DETEMIR) 1 UNITS/0.01ML SC ×2 (08:46)
[2018-01-24] MEDS: SODIUM BICARBONATE 325 MG TAB PO ×4 (08:47→21:30)
[2018-01-24] MEDS: LACTOBACILLUS ACIDOPHILUS CAP (BACID) PO ×4 (08:47→21:30)
[2018-01-24] MEDS: METOPROLOL SUCC (TopROL XL) 50MG **XL** TAB PO ×4 (08:47→21:30)
[2018-01-24] MEDS: amLODIPine 5 MG TAB PO ×2 (08:47)
[2018-01-24] MEDS: predniSONE 20 MG TAB PO ×4 (08:47→21:31)
[2018-01-24] MEDS: ASPIRIN 81 MG ENTERIC TAB PO ×2 (08:47)
[2018-01-24] MEDS: VITAMIN D 1,000 INTERNATIONAL UNITS TABLET PO ×2 (08:47)
[2018-01-24] MEDS: FERROUS GLUCONATE 324 MG TAB PO ×2 (08:48)
[2018-01-24] MEDS: BACITRACIN OINT 30GM TOP ×2 (08:48)
[2018-01-24] MEDS: NYSTATIN 100,000 UNITS/GM TOPICAL PWD 15 GM TOP ×4 (08:48→21:32)
[2018-01-24] MEDS: SANTYL OINT 30GM TOP ×2 (08:48)
[2018-01-24 08:52] LABS: ANION GAP 13 MEQ/L (8-16); BLOOD UREA NITROGEN 62 MG/DL (7-18); CALCIUM LEVEL 8.9 MG/DL (8.8-10.2); CARBON DIOXIDE LEVEL 19 MEQ/L (21-32); CHLORIDE LEVEL 105 MEQ/L (98-107); CREATININE FOR GFR 1.94 MG/DL (0.70-1.30); GLOMERULAR FILTRATION RATE 36.8 (>49); GLUCOSE, FASTING 224 MG/DL (70-100); MAGNESIUM LEVEL 1.9 MG/DL (1.8-2.4); POTASSIUM SERUM 5.1 MEQ/L (3.5-5.1); SODIUM LEVEL 137 MEQ/L (136-145)
[2018-01-24 11:49] LABS: BEDSIDE GLUCOSE 125 MG/DL (80-115)
[2018-01-24] MEDS: PATIROMER SORBITEX CALCIUM 8.4 GM POWDER PACKET (VELTASSA) PO ×2 (13:04)
[2018-01-24 16:40] LABS: BEDSIDE GLUCOSE 258 MG/DL (80-115)
[2018-01-24] MEDS: **NOTE PATIENT COMMENT** MISC XX ×2 (21:00)
[2018-01-24] MEDS: TAMSULOSIN 0.4 MG CAP PO ×2 (21:31)
[2018-01-24] MEDS: AMITRIPTYLINE 25 MG TAB PO ×2 (21:31)
[2018-01-24 21:42] LABS: BEDSIDE GLUCOSE 223 MG/DL (80-115)
[2018-01-25] MEDS: oxyCODONE 5MG TAB PO ×8 (03:10→21:52)
[2018-01-25] MEDS: HEPARIN SOD (PORCINE) 5000 UNITS/ML VIAL SC ×6 (06:27→21:52)
[2018-01-25] MEDS: LIDOCAINE 5% (LIDODERM) PATCH TD ×2 (06:28)
[2018-01-25 06:38] LABS: BEDSIDE GLUCOSE 211 MG/DL (80-115)
[2018-01-25 08:25] LABS: ANION GAP 8 MEQ/L (8-16); BLOOD UREA NITROGEN 64 MG/DL (7-18); C REACTIVE PROTEIN QUANTITATIV < 0.30 MG/DL (0.00-0.30); CALCIUM LEVEL 8.3 MG/DL (8.8-10.2); CARBON DIOXIDE LEVEL 21 MEQ/L (21-32); CHLORIDE LEVEL 107 MEQ/L (98-107); CREATININE FOR GFR 1.91 MG/DL (0.70-1.30); GLOMERULAR FILTRATION RATE 37.5 (>49); GLUCOSE, FASTING 210 MG/DL (70-100); MAGNESIUM LEVEL 1.9 MG/DL (1.8-2.4); SODIUM LEVEL 136 MEQ/L (136-145)
[2018-01-25 08:28] LABS: POTASSIUM SERUM 5.3 MEQ/L (3.5-5.1)
[2018-01-25] MEDS: VITAMIN D 1,000 INTERNATIONAL UNITS TABLET PO ×2 (08:28)
[2018-01-25] MEDS: LACTOBACILLUS ACIDOPHILUS CAP (BACID) PO ×4 (08:28→21:52)
[2018-01-25] MEDS: HumaLOG INSULIN (NovoLOG) PER UNIT SC ×6 (08:28→17:46)
[2018-01-25] MEDS: FEBUXOSTAT 40 MG TABLET (ULORIC) PO ×2 (08:28)
[2018-01-25] MEDS: SODIUM BICARBONATE 325 MG TAB PO ×4 (08:28→21:52)
[2018-01-25] MEDS: LEVEMIR (INSULIN DETEMIR) 1 UNITS/0.01ML SC ×2 (08:28)
[2018-01-25] MEDS: METOPROLOL SUCC (TopROL XL) 50MG **XL** TAB PO ×4 (08:29→21:53)
[2018-01-25] MEDS: FERROUS GLUCONATE 324 MG TAB PO ×2 (08:29)
[2018-01-25] MEDS: amLODIPine 5 MG TAB PO ×2 (08:29)
[2018-01-25] MEDS: PANTOPRAZOLE 40MG TAB (PROTONIX) PO ×2 (08:29)
[2018-01-25] MEDS: ASPIRIN 81 MG ENTERIC TAB PO ×2 (08:29)
[2018-01-25] MEDS: predniSONE 20 MG TAB PO ×4 (08:30→21:53)
[2018-01-25] MEDS: BACITRACIN OINT 30GM TOP ×2 (08:30)
[2018-01-25] MEDS: NYSTATIN 100,000 UNITS/GM TOPICAL PWD 15 GM TOP ×4 (08:30→21:54)
[2018-01-25] MEDS: SANTYL OINT 30GM TOP ×2 (08:31)
[2018-01-25 09:07] LABS: ERYTHROCYTE SEDIMENTATION RATE 31 mm/hr (0-20)
[2018-01-25 11:46] LABS: BEDSIDE GLUCOSE 132 MG/DL (80-115)
[2018-01-25] MEDS: PATIROMER SORBITEX CALCIUM 8.4 GM POWDER PACKET (VELTASSA) PO ×2 (12:08)
[2018-01-25] MEDS: BISACODYL 5 MG TAB PO ×2 (16:20)
[2018-01-25] MEDS: MIRALAX *UNIT DOSE* 17GM PACKET PO ×2 (16:20)
[2018-01-25 16:35] LABS: BEDSIDE GLUCOSE 222 MG/DL (80-115)
[2018-01-25] MEDS: **NOTE PATIENT COMMENT** MISC XX ×2 (19:30)
[2018-01-25 21:45] LABS: BEDSIDE GLUCOSE 214 MG/DL (80-115)
[2018-01-25] MEDS: TAMSULOSIN 0.4 MG CAP PO ×2 (21:53)
[2018-01-25] MEDS: AMITRIPTYLINE 25 MG TAB PO ×2 (21:53)
[2018-01-26] MEDS: oxyCODONE 5MG TAB PO ×6 (02:21→21:07)
[2018-01-26 06:02] LABS: BEDSIDE GLUCOSE 234 MG/DL (80-115)
[2018-01-26] MEDS: LIDOCAINE 5% (LIDODERM) PATCH TD ×2 (06:04)
[2018-01-26] MEDS: HEPARIN SOD (PORCINE) 5000 UNITS/ML VIAL SC ×6 (06:04→21:08)
[2018-01-26 08:00] LABS: ANION GAP 9 MEQ/L (8-16); BLOOD UREA NITROGEN 66 MG/DL (7-18); CALCIUM LEVEL 8.2 MG/DL (8.8-10.2); CARBON DIOXIDE LEVEL 20 MEQ/L (21-32); CHLORIDE LEVEL 107 MEQ/L (98-107); CREATININE FOR GFR 2.07 MG/DL (0.70-1.30); GLOMERULAR FILTRATION RATE 34.2 (>49); GLUCOSE, FASTING 230 MG/DL (70-100); MAGNESIUM LEVEL 1.9 MG/DL (1.8-2.4); POTASSIUM SERUM 5.3 MEQ/L (3.5-5.1); SODIUM LEVEL 136 MEQ/L (136-145)
[2018-01-26] MEDS: predniSONE 20 MG TAB PO ×4 (08:22→21:07)
[2018-01-26] MEDS: SODIUM BICARBONATE 325 MG TAB PO ×4 (08:23→21:07)
[2018-01-26] MEDS: FEBUXOSTAT 40 MG TABLET (ULORIC) PO ×2 (08:23)
[2018-01-26] MEDS: VITAMIN D 1,000 INTERNATIONAL UNITS TABLET PO ×2 (08:23)
[2018-01-26] MEDS: METOPROLOL SUCC (TopROL XL) 50MG **XL** TAB PO ×4 (08:23→21:06)
[2018-01-26] MEDS: LACTOBACILLUS ACIDOPHILUS CAP (BACID) PO ×4 (08:23→21:08)
[2018-01-26] MEDS: PANTOPRAZOLE 40MG TAB (PROTONIX) PO ×2 (08:23)
[2018-01-26] MEDS: FERROUS GLUCONATE 324 MG TAB PO ×2 (08:23)
[2018-01-26] MEDS: amLODIPine 5 MG TAB PO ×4 (08:23→21:08)
[2018-01-26] MEDS: ASPIRIN 81 MG ENTERIC TAB PO ×2 (08:23)
[2018-01-26] MEDS: LEVEMIR (INSULIN DETEMIR) 1 UNITS/0.01ML SC ×2 (08:24)
[2018-01-26] MEDS: HumaLOG INSULIN (NovoLOG) PER UNIT SC ×6 (08:24→17:57)
[2018-01-26] MEDS: NYSTATIN 100,000 UNITS/GM TOPICAL PWD 15 GM TOP ×4 (08:25→21:09)
[2018-01-26] MEDS: BACITRACIN OINT 30GM TOP ×2 (08:25)
[2018-01-26] MEDS: SANTYL OINT 30GM TOP ×2 (08:25)
[2018-01-26 11:31] LABS: BEDSIDE GLUCOSE 211 MG/DL (80-115)
[2018-01-26] MEDS: ANALGESIC BALM CRM 120 GM TOP ×2 (12:00)
[2018-01-26] MEDS: PATIROMER SORBITEX CALCIUM 8.4 GM POWDER PACKET (VELTASSA) PO ×2 (12:25)
[2018-01-26] MEDS: BISACODYL 10 MG SUPP PR ×2 (14:30)
[2018-01-26 17:26] LABS: BEDSIDE GLUCOSE 181 MG/DL (80-115)
[2018-01-26] MEDS: **NOTE PATIENT COMMENT** MISC XX ×2 (18:38)
[2018-01-26 20:08] LABS: BEDSIDE GLUCOSE 220 MG/DL (80-115)
[2018-01-26] MEDS: TAMSULOSIN 0.4 MG CAP PO ×2 (21:07)
[2018-01-26] MEDS: AMITRIPTYLINE 25 MG TAB PO ×2 (21:08)
[2018-01-27] MEDS: oxyCODONE 5MG TAB PO ×6 (05:58→20:49)
[2018-01-27] MEDS: HEPARIN SOD (PORCINE) 5000 UNITS/ML VIAL SC ×6 (05:58→20:51)
[2018-01-27] MEDS: LIDOCAINE 5% (LIDODERM) PATCH TD ×2 (05:59)
[2018-01-27 06:27] LABS: BEDSIDE GLUCOSE 249 MG/DL (80-115)
[2018-01-27 07:52] LABS: ANION GAP 11 MEQ/L (8-16); BLOOD UREA NITROGEN 70 MG/DL (7-18); CALCIUM LEVEL 8.5 MG/DL (8.8-10.2); CARBON DIOXIDE LEVEL 18 MEQ/L (21-32); CHLORIDE LEVEL 108 MEQ/L (98-107); CREATININE FOR GFR 1.86 MG/DL (0.70-1.30); GLOMERULAR FILTRATION RATE 38.7 (>49); GLUCOSE, FASTING 245 MG/DL (70-100); POTASSIUM SERUM 4.9 MEQ/L (3.5-5.1); SODIUM LEVEL 137 MEQ/L (136-145)
[2018-01-27] MEDS: HumaLOG INSULIN (NovoLOG) PER UNIT SC ×6 (08:57→18:16)
[2018-01-27] MEDS: LACTOBACILLUS ACIDOPHILUS CAP (BACID) PO ×4 (08:58→20:49)
[2018-01-27] MEDS: FERROUS GLUCONATE 324 MG TAB PO ×2 (08:59)
[2018-01-27] MEDS: amLODIPine 5 MG TAB PO ×4 (08:59→20:50)
[2018-01-27] MEDS: VITAMIN D 1,000 INTERNATIONAL UNITS TABLET PO ×2 (09:00)
[2018-01-27] MEDS: ASPIRIN 81 MG ENTERIC TAB PO ×2 (09:00)
[2018-01-27] MEDS: PANTOPRAZOLE 20 MG TAB PO ×2 (09:00)
[2018-01-27] MEDS: FEBUXOSTAT 40 MG TABLET (ULORIC) PO ×2 (09:00)
[2018-01-27] MEDS: SODIUM BICARBONATE 325 MG TAB PO ×4 (09:00→20:48)
[2018-01-27] MEDS ORDERED: LEVEMIR (INSULIN DETEMIR) 1 UNITS/0.01ML SC ×2 (09:00)
[2018-01-27] MEDS: METOPROLOL SUCC (TopROL XL) 50MG **XL** TAB PO ×4 (09:00→20:50)
[2018-01-27] MEDS: NYSTATIN 100,000 UNITS/GM TOPICAL PWD 15 GM TOP ×4 (09:03→20:51)
[2018-01-27] MEDS: LEVEMIR (INSULIN DETEMIR) 1 UNITS/0.01ML SC ×2 (11:22)
[2018-01-27] MEDS: BISACODYL 5 MG TAB PO ×2 (11:24)
[2018-01-27] MEDS: MAGNESIUM CITRATE 300 ML BTL PO ×2 (11:24)
[2018-01-27 12:21] LABS: BEDSIDE GLUCOSE 184 MG/DL (80-115)
[2018-01-27] MEDS: PATIROMER SORBITEX CALCIUM 8.4 GM POWDER PACKET (VELTASSA) PO ×2 (13:21)
[2018-01-27 16:58] LABS: BEDSIDE GLUCOSE 174 MG/DL (80-115)
[2018-01-27] MEDS: **NOTE PATIENT COMMENT** MISC XX ×2 (20:00)
[2018-01-27 20:37] LABS: BEDSIDE GLUCOSE 181 MG/DL (80-115)
[2018-01-27] MEDS: AMITRIPTYLINE 25 MG TAB PO ×2 (20:49)
[2018-01-27] MEDS: TAMSULOSIN 0.4 MG CAP PO ×2 (20:51)
[2018-01-28] MEDS: oxyCODONE 5MG TAB PO ×8 (01:07→21:23)
[2018-01-28] MEDS: LIDOCAINE 5% (LIDODERM) PATCH TD ×4 (06:12→08:31)
[2018-01-28] MEDS: HEPARIN SOD (PORCINE) 5000 UNITS/ML VIAL SC ×6 (06:12→21:20)
[2018-01-28 07:42] LABS: ANION GAP 8 MEQ/L (8-16); BLOOD UREA NITROGEN 63 MG/DL (7-18); CALCIUM LEVEL 8.6 MG/DL (8.8-10.2); CARBON DIOXIDE LEVEL 22 MEQ/L (21-32); CHLORIDE LEVEL 109 MEQ/L (98-107); CREATININE FOR GFR 1.89 MG/DL (0.70-1.30); GLOMERULAR FILTRATION RATE 37.9 (>49); GLUCOSE, FASTING 174 MG/DL (70-100); MAGNESIUM LEVEL 2.1 MG/DL (1.8-2.4); POTASSIUM SERUM 4.4 MEQ/L (3.5-5.1); SODIUM LEVEL 139 MEQ/L (136-145)
[2018-01-28] MEDS: FEBUXOSTAT 40 MG TABLET (ULORIC) PO ×2 (08:27)
[2018-01-28] MEDS: LACTOBACILLUS ACIDOPHILUS CAP (BACID) PO ×4 (08:28→21:20)
[2018-01-28] MEDS: FERROUS GLUCONATE 324 MG TAB PO ×2 (08:28)
[2018-01-28] MEDS: SODIUM BICARBONATE 325 MG TAB PO ×4 (08:28→21:20)
[2018-01-28] MEDS: amLODIPine 5 MG TAB PO ×4 (08:28→21:20)
[2018-01-28] MEDS: METOPROLOL SUCC (TopROL XL) 50MG **XL** TAB PO ×4 (08:28→21:21)
[2018-01-28] MEDS: ASPIRIN 81 MG ENTERIC TAB PO ×2 (08:28)
[2018-01-28] MEDS: PANTOPRAZOLE 20 MG TAB PO ×2 (08:28)
[2018-01-28] MEDS: VITAMIN D 1,000 INTERNATIONAL UNITS TABLET PO ×2 (08:28)
[2018-01-28] MEDS: NYSTATIN 100,000 UNITS/GM TOPICAL PWD 15 GM TOP ×4 (08:30→21:00)
[2018-01-28] MEDS: LEVEMIR (INSULIN DETEMIR) 1 UNITS/0.01ML SC ×2 (08:30)
[2018-01-28] MEDS: HumaLOG INSULIN (NovoLOG) PER UNIT SC ×6 (08:30→18:01)
[2018-01-28 11:36] LABS: BEDSIDE GLUCOSE 191 MG/DL (80-115)
[2018-01-28 16:32] LABS: BEDSIDE GLUCOSE 188 MG/DL (80-115)
[2018-01-28] MEDS: **NOTE PATIENT COMMENT** MISC XX ×2 (18:01)
[2018-01-28 20:47] LABS: BEDSIDE GLUCOSE 211 MG/DL (80-115)
[2018-01-28] MEDS: AMITRIPTYLINE 25 MG TAB PO ×2 (21:20)
[2018-01-28] MEDS: TAMSULOSIN 0.4 MG CAP PO ×2 (21:21)
[2018-01-29 06:00] LABS: BEDSIDE GLUCOSE 197 MG/DL (80-115)
[2018-01-29 06:00] LABS: BEDSIDE GLUCOSE 192 MG/DL (80-115)
[2018-01-29] MEDS: HEPARIN SOD (PORCINE) 5000 UNITS/ML VIAL SC ×6 (06:15→21:36)
[2018-01-29] MEDS: oxyCODONE 5MG TAB PO ×6 (06:15→20:23)
[2018-01-29] MEDS: LIDOCAINE 5% (LIDODERM) PATCH TD ×2 (06:15)
[2018-01-29 07:02] LABS: HEMATOCRIT 31.4 % (42.0-52.0); MEAN CORPUSCULAR HGB CONC 31.8 g/dl (32.0-36.5); MEAN CORPUSCULAR VOLUME 84.9 fl (80.0-96.0); PLATELET COUNT, AUTOMATED 210 10^3/uL (150-450); RED CELL DISTRIBUTION WIDTH 16.9 % (11.5-14.5); WHITE BLOOD COUNT 7.8 10^3/uL (4.0-10.0)
[2018-01-29 07:10] LABS: ANION GAP 8 MEQ/L (8-16); BLOOD UREA NITROGEN 72 MG/DL (7-18); CALCIUM LEVEL 8.3 MG/DL (8.8-10.2); CARBON DIOXIDE LEVEL 21 MEQ/L (21-32); CHLORIDE LEVEL 108 MEQ/L (98-107); CREATININE FOR GFR 2.46 MG/DL (0.70-1.30); GLUCOSE, FASTING 174 MG/DL (70-100); POTASSIUM SERUM 4.5 MEQ/L (3.5-5.1); SODIUM LEVEL 137 MEQ/L (136-145)
[2018-01-29] MEDS: FEBUXOSTAT 40 MG TABLET (ULORIC) PO ×2 (08:01)
[2018-01-29] MEDS: LACTOBACILLUS ACIDOPHILUS CAP (BACID) PO ×4 (08:01→20:22)
[2018-01-29] MEDS: FERROUS GLUCONATE 324 MG TAB PO ×2 (08:02)
[2018-01-29] MEDS: VITAMIN D 1,000 INTERNATIONAL UNITS TABLET PO ×2 (08:02)
[2018-01-29] MEDS: ASPIRIN 81 MG ENTERIC TAB PO ×2 (08:02)
[2018-01-29] MEDS: PANTOPRAZOLE 20 MG TAB PO ×2 (08:02)
[2018-01-29] MEDS: SODIUM BICARBONATE 325 MG TAB PO ×2 (08:02)
[2018-01-29] MEDS: NYSTATIN 100,000 UNITS/GM TOPICAL PWD 15 GM TOP ×4 (08:03→21:00)
[2018-01-29] MEDS: HumaLOG INSULIN (NovoLOG) PER UNIT SC ×6 (09:15→17:32)
[2018-01-29] MEDS: LEVEMIR (INSULIN DETEMIR) 1 UNITS/0.01ML SC ×2 (09:17)
[2018-01-29] MEDS: amLODIPine 5 MG TAB PO ×2 (09:59)
[2018-01-29] MEDS: METOPROLOL SUCC (TopROL XL) 50MG **XL** TAB PO ×4 (10:03→20:22)
[2018-01-29] MEDS: MIDODRINE 2.5 MG TAB PO ×2 (10:40)
[2018-01-29 11:24] LABS: BEDSIDE GLUCOSE 207 MG/DL (80-115)
[2018-01-29] MEDS: ONDANSETRON 4 MG TAB (S0181) PO ×2 (11:42)
[2018-01-29] MEDS: METOCLOPRAMIDE 10 MG TAB PO ×2 (14:12)
[2018-01-29 17:00] LABS: BEDSIDE GLUCOSE 198 MG/DL (80-115)
[2018-01-29] MEDS: **NOTE PATIENT COMMENT** MISC XX ×2 (17:32)
[2018-01-29 20:14] LABS: BEDSIDE GLUCOSE 192 MG/DL (80-115)
[2018-01-29] MEDS: TAMSULOSIN 0.4 MG CAP PO ×2 (20:22)
[2018-01-29] MEDS: AMITRIPTYLINE 25 MG TAB PO ×2 (20:23)
[2018-01-30] MEDS: oxyCODONE 5MG TAB PO ×6 (02:29→17:05)
[2018-01-30] MEDS: HEPARIN SOD (PORCINE) 5000 UNITS/ML VIAL SC ×6 (06:45→20:37)
[2018-01-30] MEDS: LIDOCAINE 5% (LIDODERM) PATCH TD ×2 (06:46)
[2018-01-30 06:52] LABS: BEDSIDE GLUCOSE 205 MG/DL (80-115)
[2018-01-30 06:57] LABS: ANION GAP 11 MEQ/L (8-16); BLOOD UREA NITROGEN 86 MG/DL (7-18); CALCIUM LEVEL 8.3 MG/DL (8.8-10.2); CARBON DIOXIDE LEVEL 19 MEQ/L (21-32); CHLORIDE LEVEL 103 MEQ/L (98-107); CREATININE FOR GFR 4.18 MG/DL (0.70-1.30); GLOMERULAR FILTRATION RATE 15.2 (>49); GLUCOSE, FASTING 206 MG/DL (70-100); SODIUM LEVEL 133 MEQ/L (136-145)
[2018-01-30 06:58] LABS: POTASSIUM SERUM 5.3 MEQ/L (3.5-5.1)
[2018-01-30] MEDS: HumaLOG INSULIN (NovoLOG) PER UNIT SC ×6 (09:09→18:00)
[2018-01-30] MEDS: NS 1,000 ML IV ×2 (09:09)
[2018-01-30] MEDS: FERROUS GLUCONATE 324 MG TAB PO ×2 (09:49)
[2018-01-30] MEDS: ASPIRIN 81 MG ENTERIC TAB PO ×2 (09:49)
[2018-01-30] MEDS: LEVEMIR (INSULIN DETEMIR) 1 UNITS/0.01ML SC ×2 (09:49)
[2018-01-30] MEDS: VITAMIN D 1,000 INTERNATIONAL UNITS TABLET PO ×2 (09:49)
[2018-01-30] MEDS: PANTOPRAZOLE 20 MG TAB PO ×2 (09:49)
[2018-01-30] MEDS: FEBUXOSTAT 40 MG TABLET (ULORIC) PO ×2 (09:49)
[2018-01-30] MEDS: amLODIPine 5 MG TAB PO ×2 (09:50)
[2018-01-30] MEDS: METOPROLOL SUCC (TopROL XL) 50MG **XL** TAB PO ×2 (09:50)
[2018-01-30] MEDS: LACTOBACILLUS ACIDOPHILUS CAP (BACID) PO ×4 (09:50→20:36)
[2018-01-30] MEDS: NYSTATIN 100,000 UNITS/GM TOPICAL PWD 15 GM TOP ×4 (09:51→20:37)
[2018-01-30] MEDS ORDERED: SOD POLYSTYRENE SULFONATE SUSP 15 GM/60 ML UD PO ×2 (10:00)
[2018-01-30] MEDS: SOD POLYSTYRENE SULFONATE SUSP 15 GM/60 ML UD PO ×2 (10:05)
[2018-01-30 11:48] LABS: BEDSIDE GLUCOSE 226 MG/DL (80-115)
[2018-01-30] MEDS: SODIUM BICARBONATE 75 MEQ in NS 0.45% 1,000 ML IV ×2 (12:04→20:36)
[2018-01-30 13:12] LABS: LACTIC ACID SEPSIS PROTOCOL 1.8 MMOL/L (0.4-2.0)
[2018-01-30] MEDS ORDERED: TAPENTADOL 50 MG TABLET (NUCYNTA) PO ×2 (15:45)
[2018-01-30 16:52] LABS: BEDSIDE GLUCOSE 126 MG/DL (80-115)
[2018-01-30 18:08] LABS: ANION GAP 12 MEQ/L (8-16); BLOOD UREA NITROGEN 87 MG/DL (7-18); CARBON DIOXIDE LEVEL 19 MEQ/L (21-32); CHLORIDE LEVEL 101 MEQ/L (98-107); CREATININE FOR GFR 4.82 MG/DL (0.70-1.30); GLOMERULAR FILTRATION RATE 12.9 (>49); GLUCOSE, FASTING 138 MG/DL (70-100); SODIUM LEVEL 132 MEQ/L (136-145)
[2018-01-30 18:13] LABS: POTASSIUM SERUM 5.3 MEQ/L (3.5-5.1)
[2018-01-30] MEDS: **NOTE PATIENT COMMENT** MISC XX ×2 (19:41)
[2018-01-30] MEDS: TAMSULOSIN 0.4 MG CAP PO ×2 (20:36)
[2018-01-30] MEDS: AMITRIPTYLINE 25 MG TAB PO ×2 (20:36)
[2018-01-30 20:39] LABS: BEDSIDE GLUCOSE 146 MG/DL (80-115)
[2018-01-31] MEDS: SODIUM BICARBONATE 75 MEQ in NS 0.45% 1,000 ML IV (05:01)
[2018-01-31] MEDS: TAPENTADOL 50 MG TABLET (NUCYNTA) PO ×2 (06:00)
[2018-01-31] MEDS: NS 500 ML IV ×2 (06:15)
[2018-01-31] MEDS: HEPARIN SOD (PORCINE) 5000 UNITS/ML VIAL SC ×2 (06:17)
[2018-01-31 06:25] LABS: HEMATOCRIT 28.2 % (42.0-52.0); MEAN CORPUSCULAR HGB CONC 31.9 g/dl (32.0-36.5); MEAN CORPUSCULAR VOLUME 84.7 fl (80.0-96.0); PLATELET COUNT, AUTOMATED 114 10^3/uL (150-450); RED BLOOD COUNT 3.33 10^6/uL (4.30-6.10); RED CELL DISTRIBUTION WIDTH 17.2 % (11.5-14.5); WHITE BLOOD COUNT 10.7 10^3/uL (4.0-10.0)
[2018-01-31] MEDS: LIDOCAINE 5% (LIDODERM) PATCH TD ×2 (06:46)
[2018-01-31 06:58] LABS: ANION GAP 12 MEQ/L (8-16); BLOOD UREA NITROGEN 93 MG/DL (7-18); CALCIUM LEVEL 7.9 MG/DL (8.8-10.2); CARBON DIOXIDE LEVEL 19 MEQ/L (21-32); CHLORIDE LEVEL 100 MEQ/L (98-107); CREATININE FOR GFR 4.95 MG/DL (0.70-1.30); GLOMERULAR FILTRATION RATE 12.5 (>49); GLUCOSE, FASTING 150 MG/DL (70-100); POTASSIUM SERUM 4.5 MEQ/L (3.5-5.1); SODIUM LEVEL 131 MEQ/L (136-145)
[2018-01-31] MEDS: HumaLOG INSULIN (NovoLOG) PER UNIT SC ×2 (07:30)
[2018-01-31] MEDS: LEVEMIR (INSULIN DETEMIR) 1 UNITS/0.01ML SC ×2 (08:00)
[2018-01-31] MEDS: PANTOPRAZOLE 20 MG TAB PO ×2 (09:24)
[2018-01-31] MEDS: ASPIRIN 81 MG ENTERIC TAB PO ×2 (09:24)
[2018-01-31] MEDS: FEBUXOSTAT 40 MG TABLET (ULORIC) PO ×2 (09:24)
[2018-01-31] MEDS: VITAMIN D 1,000 INTERNATIONAL UNITS TABLET PO ×2 (09:24)
[2018-01-31] MEDS: LACTOBACILLUS ACIDOPHILUS CAP (BACID) PO ×2 (09:24)
[2018-01-31] MEDS: FERROUS GLUCONATE 324 MG TAB PO ×2 (09:25)
[2018-01-31] MEDS: NYSTATIN 100,000 UNITS/GM TOPICAL PWD 15 GM TOP ×2 (09:25)
[2018-01-31 11:24] LABS: CK-MB VALUE MASS 2.3 NG/ML (<3.6); CPK CREATINE PHOSPHOKINASE 30 U/L (39-308); MB/CK RELATIVE INDEX 7.66 (< OR =4); TROPONIN I < 0.02 NG/ML (< 0.10)
[2018-01-31 11:26] LABS: LACTIC ACID SEPSIS PROTOCOL 1.1 MMOL/L (0.4-2.0)
== END 2018-01-31 08:00 | DRG 95 ==
LOC: M PCU 01-31 11:48 → M PM&R 01-31 11:48
PROVIDERS: Physical Medicine & Rehabilitation
DX: G61.0 Guillain-Barre syndrome (principal); N17.9 Acute kidney failure, unspecified; N18.4 Chronic kidney disease, stage 4 (severe); L03.115 Cellulitis of right lower limb; E87.2 Acidosis; I73.9 Peripheral vascular disease, unspecified; E87.5 Hyperkalemia; I48.91 Unspecified atrial fibrillation; D63.1 Anemia in chronic kidney disease; I12.9 Hypertensive chronic kidney disease with stage 1 through stage 4 chronic kidney disease, or unspecified chronic kidney disease; E11.21 Type 2 diabetes mellitus with diabetic nephropathy; F41.9 Anxiety disorder, unspecified; G47.00 Insomnia, unspecified; Z79.82 Long term (current) use of aspirin; Z79.899 Other long term (current) drug therapy; Z79.4 Long term (current) use of insulin; Z66 Do not resuscitate; Z86.73 Personal history of transient ischemic attack (TIA), and cerebral infarction without residual deficits; M10.9 Gout, unspecified; Z86.718 Personal history of other venous thrombosis and embolism; E55.9 Vitamin D deficiency, unspecified; K59.00 Constipation, unspecified; E78.5 Hyperlipidemia, unspecified; D64.9 Anemia, unspecified; I70.235 Atherosclerosis of native arteries of right leg with ulceration of other part of foot

== ENCOUNTER 2018-01-31 11:48 | Inpatient (IN) | payer OTHER ==
[2018-01-31] MEDS ORDERED: oxyCODONE 5MG TAB PO (14:45)
[2018-01-31] MEDS ORDERED: MAALOX 30 ML SUSP *UDC PO (14:45)
[2018-01-31] MEDS ORDERED: ALBUTEROL SULFATE 2.5 MG/0.5 ML INH NEB SOLN NEB (14:45)
[2018-01-31] MEDS ORDERED: GLUCOSE 4 GM CHEW TABLET PO (14:45)
[2018-01-31] MEDS ORDERED: TAPENTADOL 50 MG TABLET (NUCYNTA) PO (14:45)
[2018-01-31] MEDS ORDERED: DEXTROSE 50% 50 ML SYRINGE IV (14:45)
[2018-01-31] MEDS ORDERED: GLUCAGON FOR INJ 1 MG VIAL (J1610) SC (14:45)
[2018-01-31] MEDS ORDERED: LORazepam 0.5 MG TAB PO (14:45)
[2018-01-31] MEDS ORDERED: HEPARIN SOD (PORCINE) 5000 UNITS/ML VIAL IV (15:15)
[2018-01-31 15:51] LABS: PARTIAL THROMBOPLASTIN TIME 39.4 SECONDS (25.4-37.6)
[2018-01-31] MEDS: HEPARIN DRIP 25,000 UNITS in APPROPRIATE DILUENT 1 EA IV (16:06)
[2018-01-31] MEDS: HEPARIN SOD (PORCINE) 5000 UNITS/ML VIAL IV (16:07)
[2018-01-31] MEDS: SODIUM BICARBONATE 75 MEQ in NS 0.45% 1,000 ML IV (16:08)
[2018-01-31 16:47] LABS: BEDSIDE GLUCOSE 201 MG/DL (80-115)
[2018-01-31] MEDS: METOPROLOL 5 MG/5 ML VIAL IV ×3 (17:40→18:00)
[2018-01-31] MEDS: HumaLOG INSULIN (NovoLOG) PER UNIT SC ×2 (18:06→21:00)
[2018-01-31] MEDS: ACETAMINOPHEN TAB 650MG DOSE (2X325MG) PO (19:43)
[2018-01-31 19:47] LABS: CK-MB VALUE MASS 3.1 NG/ML (<3.6); CPK CREATINE PHOSPHOKINASE 45 U/L (39-308); MB/CK RELATIVE INDEX 6.88 (< OR =4); TROPONIN I 0.02 NG/ML (< 0.10)
[2018-01-31] MEDS: NYSTATIN 100,000 UNITS/GM TOPICAL PWD 15 GM TOP (21:00)
[2018-01-31] MEDS: METOPROLOL SUCC (TopROL XL) 50MG **XL** TAB PO (21:00)
[2018-01-31] MEDS: **NOTE PATIENT COMMENT** MISC XX (21:00)
[2018-01-31 21:33] LABS: CPK CREATINE PHOSPHOKINASE 43 U/L (39-308); TROPONIN I 0.02 NG/ML (< 0.10)
[2018-01-31 21:34] LABS: CK-MB VALUE MASS 3.1 NG/ML (<3.6)
[2018-01-31 21:36] LABS: BEDSIDE GLUCOSE 178 MG/DL (80-115)
[2018-01-31] MEDS: LACTOBACILLUS ACIDOPHILUS CAP (BACID) PO (21:48)
[2018-01-31] MEDS: TAMSULOSIN 0.4 MG CAP PO (21:48)
[2018-01-31] MEDS: AMITRIPTYLINE 25 MG TAB PO (21:48)
[2018-01-31 22:31] LABS: PARTIAL THROMBOPLASTIN TIME > 240.0 SECONDS (25.4-37.6)
[2018-01-31 23:29] LABS: PARTIAL THROMBOPLASTIN TIME > 240.0 SECONDS (25.4-37.6)
[2018-02-01] MEDS: ACETAMINOPHEN TAB 650MG DOSE (2X325MG) PO ×4 (00:19→20:58)
[2018-02-01] MEDS: SODIUM BICARBONATE 75 MEQ in NS 0.45% 1,000 ML IV ×2 (01:56→23:45)
[2018-02-01 01:57] LABS: APPEARANCE, URINE HAZY (CLEAR); BACTERIA, URINE AUTO NEGATIVE (NEGATIVE); BILIRUBIN, URINE AUTO NEGATIVE (NEGATIVE); BLOOD, URINE BLOOD NEGATIVE (NEGATIVE); COLOR, URINE YELLOW (YELLOW); GLUCOSE, URINE (UA) AUTO NEGATIVE (NEGATIVE); KETONE, URINE AUTO NEGATIVE (NEGATIVE); LEUKOCYTE ESTERASE, URINE AUTO NEGATIVE (NEGATIVE); NITRITE, URINE AUTO NEGATIVE (NEGATIVE); PROTEIN, URINE AUTO 1+ mg/dL (NEGATIVE); RBC, URINE AUTO 5 /HPF (0-3); SPECIFIC GRAVITY URINE AUTO 1.014 (1.002-1.035); SQUAMOUS EPITHELIAL CELL UR AU 0 /HPF (0-6); UROBILINOGEN, URINE AUTO 0.2 mg/dL (0.0-2.0); WBC, URINE AUTO 2 /HPF (0-3)
[2018-02-01 02:35] LABS: PARTIAL THROMBOPLASTIN TIME 59.5 SECONDS (25.4-37.6)
[2018-02-01 05:20] LABS: HEMATOCRIT 25.5 % (42.0-52.0); HEMOGLOBIN 8.3 g/dl (13.5-17.5); MEAN CORPUSCULAR HEMOGLOBIN 27.6 pg (27.0-33.0); MEAN CORPUSCULAR HGB CONC 32.5 g/dl (32.0-36.5); MEAN CORPUSCULAR VOLUME 84.7 fl (80.0-96.0); PLATELET COUNT, AUTOMATED 116 10^3/uL (150-450); RED BLOOD COUNT 3.01 10^6/uL (4.30-6.10); RED CELL DISTRIBUTION WIDTH 17.2 % (11.5-14.5); WHITE BLOOD COUNT 10.4 10^3/uL (4.0-10.0)
[2018-02-01 05:36] LABS: ALBUMIN 2.3 GM/DL (3.2-5.2); ALBUMIN/GLOBULIN RATIO 0.61 (1.00-1.93); ALKALINE PHOSPHATASE 75 U/L (45-117); ALT/SGPT 18 U/L (12-78); ANION GAP 14 MEQ/L (8-16); AST/SGOT 8 U/L (7-37); BILIRUBIN,TOTAL 0.4 MG/DL (0.2-1.0); BLOOD UREA NITROGEN 96 MG/DL (7-18); CALCIUM LEVEL 7.6 MG/DL (8.8-10.2); CARBON DIOXIDE LEVEL 18 MEQ/L (21-32); CHLORIDE LEVEL 100 MEQ/L (98-107); CREATININE FOR GFR 5.19 MG/DL (0.70-1.30); GLOMERULAR FILTRATION RATE 11.8 (>49); GLUCOSE, FASTING 139 MG/DL (70-100); POTASSIUM SERUM 4.1 MEQ/L (3.5-5.1); SODIUM LEVEL 132 MEQ/L (136-145); TOTAL PROTEIN 6.1 GM/DL (6.4-8.2)
[2018-02-01] MEDS: HumaLOG INSULIN (NovoLOG) PER UNIT SC ×4 (08:50→21:00)
[2018-02-01] MEDS: LEVEMIR (INSULIN DETEMIR) 1 UNITS/0.01ML SC (08:50)
[2018-02-01] MEDS: VITAMIN D 1,000 INTERNATIONAL UNITS TABLET PO (08:51)
[2018-02-01] MEDS: FERROUS GLUCONATE 324 MG TAB PO (08:51)
[2018-02-01] MEDS: PANTOPRAZOLE 20 MG TAB PO (08:51)
[2018-02-01] MEDS: LACTOBACILLUS ACIDOPHILUS CAP (BACID) PO ×2 (08:51→20:58)
[2018-02-01] MEDS: NYSTATIN 100,000 UNITS/GM TOPICAL PWD 15 GM TOP ×2 (08:51→21:00)
[2018-02-01] MEDS: LIDOCAINE 5% (LIDODERM) PATCH TD (08:52)
[2018-02-01] MEDS ORDERED: LIDOCAINE 5% (LIDODERM) PATCH TD (09:00)
[2018-02-01] MEDS: HEPARIN DRIP 25,000 UNITS in APPROPRIATE DILUENT 1 EA IV (09:05)
[2018-02-01 12:08] LABS: BEDSIDE GLUCOSE 172 MG/DL (80-115)
[2018-02-01 16:54] LABS: BEDSIDE GLUCOSE 125 MG/DL (80-115)
[2018-02-01 18:38] LABS: PARTIAL THROMBOPLASTIN TIME 93.7 SECONDS (25.4-37.6)
[2018-02-01 19:57] LABS: BEDSIDE GLUCOSE 140 MG/DL (80-115)
[2018-02-01] MEDS: AMITRIPTYLINE 25 MG TAB PO (20:57)
[2018-02-01] MEDS: TAMSULOSIN 0.4 MG CAP PO (20:57)
[2018-02-01] MEDS: **NOTE PATIENT COMMENT** MISC XX (21:00)
[2018-02-01] MEDS: ANALGESIC BALM CRM 120 GM TOP (21:08)
[2018-02-02 00:19] LABS: PARTIAL THROMBOPLASTIN TIME 99.5 SECONDS (25.4-37.6)
[2018-02-02] MEDS: HEPARIN DRIP 25,000 UNITS in APPROPRIATE DILUENT 1 EA IV ×2 (03:15→17:32)
[2018-02-02 04:30] LABS: HEMATOCRIT 23.8 % (42.0-52.0); HEMOGLOBIN 7.8 g/dl (13.5-17.5); MEAN CORPUSCULAR HEMOGLOBIN 27.4 pg (27.0-33.0); MEAN CORPUSCULAR HGB CONC 32.8 g/dl (32.0-36.5); MEAN CORPUSCULAR VOLUME 83.5 fl (80.0-96.0); PLATELET COUNT, AUTOMATED 143 10^3/uL (150-450); RED BLOOD COUNT 2.85 10^6/uL (4.30-6.10); RED CELL DISTRIBUTION WIDTH 17.2 % (11.5-14.5); WHITE BLOOD COUNT 7.9 10^3/uL (4.0-10.0)
[2018-02-02 04:41] LABS: PARTIAL THROMBOPLASTIN TIME 102.3 SECONDS (25.4-37.6)
[2018-02-02 04:47] LABS: ALBUMIN 2.1 GM/DL (3.2-5.2); ALBUMIN/GLOBULIN RATIO 0.55 (1.00-1.93); ALKALINE PHOSPHATASE 76 U/L (45-117); ALT/SGPT 16 U/L (12-78); ANION GAP 13 MEQ/L (8-16); AST/SGOT 10 U/L (7-37); BILIRUBIN,TOTAL 0.3 MG/DL (0.2-1.0); BLOOD UREA NITROGEN 94 MG/DL (7-18); CALCIUM LEVEL 7.4 MG/DL (8.8-10.2); CARBON DIOXIDE LEVEL 20 MEQ/L (21-32); CHLORIDE LEVEL 98 MEQ/L (98-107); CREATININE FOR GFR 4.37 MG/DL (0.70-1.30); GLOMERULAR FILTRATION RATE 14.4 (>49); GLUCOSE, FASTING 149 MG/DL (70-100); POTASSIUM SERUM 4.1 MEQ/L (3.5-5.1); SODIUM LEVEL 131 MEQ/L (136-145); TOTAL PROTEIN 5.9 GM/DL (6.4-8.2)
[2018-02-02] MEDS: HumaLOG INSULIN (NovoLOG) PER UNIT SC ×4 (07:30→21:00)
[2018-02-02] MEDS ORDERED: LIDOCAINE 2% MDV 20 ML VIAL As Ordered (08:21)
[2018-02-02] MEDS ORDERED: HEPARIN 1,000 UNITS/ML 10ML VIAL (FOR RADIOLOGY& DIALYSIS ONLY) As Ordered (08:21)
[2018-02-02] MEDS ORDERED: MIDAZOLAM INJ 2 MG/2 ML VIAL (J2250) As Ordered (09:00)
[2018-02-02 11:58] LABS: BEDSIDE GLUCOSE 157 MG/DL (80-115)
[2018-02-02] MEDS: LACTOBACILLUS ACIDOPHILUS CAP (BACID) PO ×2 (12:10→21:00)
[2018-02-02] MEDS: VITAMIN D 1,000 INTERNATIONAL UNITS TABLET PO (12:10)
[2018-02-02] MEDS: FERROUS GLUCONATE 324 MG TAB PO (12:11)
[2018-02-02] MEDS: PANTOPRAZOLE 20 MG TAB PO (12:11)
[2018-02-02] MEDS: LEVEMIR (INSULIN DETEMIR) 1 UNITS/0.01ML SC (12:13)
[2018-02-02] MEDS: NYSTATIN 100,000 UNITS/GM TOPICAL PWD 15 GM TOP ×2 (12:13→21:00)
[2018-02-02] MEDS: LIDOCAINE 5% (LIDODERM) PATCH TD (12:14)
[2018-02-02] MEDS: ACETAMINOPHEN TAB 650MG DOSE (2X325MG) PO ×3 (12:17→23:03)
[2018-02-02 15:02] LABS: IMMEDIATE SPIN CROSSMATCH 1 1
[2018-02-02] MEDS: SODIUM BICARBONATE 75 MEQ in NS 0.45% 1,000 ML IV (17:31)
[2018-02-02 17:44] LABS: BEDSIDE GLUCOSE 181 MG/DL (80-115)
[2018-02-02] MEDS: **NOTE PATIENT COMMENT** MISC XX (21:00)
[2018-02-02] MEDS: TAMSULOSIN 0.4 MG CAP PO (21:00)
[2018-02-02] MEDS: AMITRIPTYLINE 25 MG TAB PO (21:02)
[2018-02-02 21:05] LABS: BEDSIDE GLUCOSE 137 MG/DL (80-115)
[2018-02-03 04:59] LABS: HEMATOCRIT 25.1 % (42.0-52.0); HEMOGLOBIN 8.4 g/dl (13.5-17.5); MEAN CORPUSCULAR HEMOGLOBIN 27.6 pg (27.0-33.0); MEAN CORPUSCULAR HGB CONC 33.5 g/dl (32.0-36.5); MEAN CORPUSCULAR VOLUME 82.6 fl (80.0-96.0); PLATELET COUNT, AUTOMATED 173 10^3/uL (150-450); RED BLOOD COUNT 3.04 10^6/uL (4.30-6.10); RED CELL DISTRIBUTION WIDTH 17.1 % (11.5-14.5); WHITE BLOOD COUNT 7.7 10^3/uL (4.0-10.0)
[2018-02-03 05:17] LABS: PARTIAL THROMBOPLASTIN TIME 74.7 SECONDS (25.4-37.6)
[2018-02-03 05:18] LABS: ALBUMIN 2.2 GM/DL (3.2-5.2); ALBUMIN/GLOBULIN RATIO 0.59 (1.00-1.93); ALKALINE PHOSPHATASE 83 U/L (45-117); ALT/SGPT 16 U/L (12-78); ANION GAP 13 MEQ/L (8-16); AST/SGOT 13 U/L (7-37); BILIRUBIN,TOTAL 0.3 MG/DL (0.2-1.0); BLOOD UREA NITROGEN 85 MG/DL (7-18); CALCIUM LEVEL 7.6 MG/DL (8.8-10.2); CARBON DIOXIDE LEVEL 22 MEQ/L (21-32); CHLORIDE LEVEL 99 MEQ/L (98-107); CREATININE FOR GFR 3.73 MG/DL (0.70-1.30); GLOMERULAR FILTRATION RATE 17.3 (>49); GLUCOSE, FASTING 139 MG/DL (70-100); POTASSIUM SERUM 4.6 MEQ/L (3.5-5.1); SODIUM LEVEL 134 MEQ/L (136-145); TOTAL PROTEIN 5.9 GM/DL (6.4-8.2)
[2018-02-03] MEDS: LEVEMIR (INSULIN DETEMIR) 1 UNITS/0.01ML SC (08:21)
[2018-02-03] MEDS: LIDOCAINE 5% (LIDODERM) PATCH TD (08:21)
[2018-02-03] MEDS: FERROUS GLUCONATE 324 MG TAB PO (08:21)
[2018-02-03] MEDS: PANTOPRAZOLE 20 MG TAB PO (08:21)
[2018-02-03] MEDS: VITAMIN D 1,000 INTERNATIONAL UNITS TABLET PO (08:21)
[2018-02-03] MEDS: LACTOBACILLUS ACIDOPHILUS CAP (BACID) PO ×2 (08:21→20:46)
[2018-02-03] MEDS: HumaLOG INSULIN (NovoLOG) PER UNIT SC ×4 (08:22→20:30)
[2018-02-03] MEDS: NYSTATIN 100,000 UNITS/GM TOPICAL PWD 15 GM TOP ×2 (08:22→20:46)
[2018-02-03] MEDS: ACETAMINOPHEN TAB 650MG DOSE (2X325MG) PO ×2 (08:24→20:49)
[2018-02-03] MEDS: HEPARIN DRIP 25,000 UNITS in APPROPRIATE DILUENT 1 EA IV (11:21)
[2018-02-03 12:24] LABS: BEDSIDE GLUCOSE 172 MG/DL (80-115)
[2018-02-03] MEDS: SODIUM BICARBONATE 75 MEQ in NS 0.45% 1,000 ML IV (12:50)
[2018-02-03] MEDS: ANALGESIC BALM CRM 120 GM TOP (12:56)
[2018-02-03 16:37] LABS: BEDSIDE GLUCOSE 173 MG/DL (80-115)
[2018-02-03 20:12] LABS: BEDSIDE GLUCOSE 189 MG/DL (80-115)
[2018-02-03] MEDS: MIRALAX *UNIT DOSE* 17GM PACKET PO (20:45)
[2018-02-03] MEDS: TAMSULOSIN 0.4 MG CAP PO (20:46)
[2018-02-03] MEDS: **NOTE PATIENT COMMENT** MISC XX (20:46)
[2018-02-03] MEDS: AMITRIPTYLINE 25 MG TAB PO (20:46)
[2018-02-03] MEDS: BISACODYL 10 MG SUPP PR (23:17)
[2018-02-04] MEDS: ONDANSETRON 4 MG TAB (S0181) PO (01:32)
[2018-02-04] MEDS: HEPARIN DRIP 25,000 UNITS in APPROPRIATE DILUENT 1 EA IV ×2 (03:51→23:00)
[2018-02-04 06:10] LABS: HEMATOCRIT 28.1 % (42.0-52.0); MEAN CORPUSCULAR HEMOGLOBIN 26.9 pg (27.0-33.0); MEAN CORPUSCULAR VOLUME 83.9 fl (80.0-96.0); PLATELET COUNT, AUTOMATED 186 10^3/uL (150-450); RED BLOOD COUNT 3.35 10^6/uL (4.30-6.10); RED CELL DISTRIBUTION WIDTH 16.8 % (11.5-14.5); WHITE BLOOD COUNT 7.5 10^3/uL (4.0-10.0)
[2018-02-04 06:20] LABS: PARTIAL THROMBOPLASTIN TIME 66.8 SECONDS (25.4-37.6)
[2018-02-04 06:35] LABS: ALBUMIN 2.2 GM/DL (3.2-5.2); ALBUMIN/GLOBULIN RATIO 0.61 (1.00-1.93); ALKALINE PHOSPHATASE 93 U/L (45-117); ALT/SGPT 18 U/L (12-78); ANION GAP 11 MEQ/L (8-16); AST/SGOT 13 U/L (7-37); BILIRUBIN,TOTAL 0.3 MG/DL (0.2-1.0); BLOOD UREA NITROGEN 71 MG/DL (7-18); CALCIUM LEVEL 8.3 MG/DL (8.8-10.2); CARBON DIOXIDE LEVEL 24 MEQ/L (21-32); CHLORIDE LEVEL 100 MEQ/L (98-107); GLOMERULAR FILTRATION RATE 20.7 (>49); GLUCOSE, FASTING 209 MG/DL (70-100); POTASSIUM SERUM 4.4 MEQ/L (3.5-5.1); SODIUM LEVEL 135 MEQ/L (136-145); TOTAL PROTEIN 5.8 GM/DL (6.4-8.2)
[2018-02-04] MEDS: FERROUS GLUCONATE 324 MG TAB PO (07:37)
[2018-02-04] MEDS: VITAMIN D 1,000 INTERNATIONAL UNITS TABLET PO (07:37)
[2018-02-04] MEDS: LACTOBACILLUS ACIDOPHILUS CAP (BACID) PO ×2 (07:37→21:51)
[2018-02-04] MEDS: HumaLOG INSULIN (NovoLOG) PER UNIT SC ×4 (07:37→21:52)
[2018-02-04] MEDS: LEVEMIR (INSULIN DETEMIR) 1 UNITS/0.01ML SC (07:38)
[2018-02-04] MEDS: NYSTATIN 100,000 UNITS/GM TOPICAL PWD 15 GM TOP ×2 (07:39→21:53)
[2018-02-04] MEDS: LIDOCAINE 5% (LIDODERM) PATCH TD (07:39)
[2018-02-04] MEDS: ACETAMINOPHEN TAB 650MG DOSE (2X325MG) PO ×2 (09:02→21:55)
[2018-02-04] MEDS: PANTOPRAZOLE 20 MG TAB PO (09:02)
[2018-02-04 11:46] LABS: BEDSIDE GLUCOSE 188 MG/DL (80-115)
[2018-02-04 16:27] LABS: BEDSIDE GLUCOSE 262 MG/DL (80-115)
[2018-02-04] MEDS: WARFARIN SOD 5 MG TAB PO (17:08)
[2018-02-04 20:23] LABS: BEDSIDE GLUCOSE 177 MG/DL (80-115)
[2018-02-04] MEDS: TAMSULOSIN 0.4 MG CAP PO (21:52)
[2018-02-04] MEDS: AMITRIPTYLINE 25 MG TAB PO (21:52)
[2018-02-04] MEDS: **NOTE PATIENT COMMENT** MISC XX (21:53)
[2018-02-05 06:19] LABS: HEMATOCRIT 26.4 % (42.0-52.0); HEMOGLOBIN 8.7 g/dl (13.5-17.5); MEAN CORPUSCULAR HEMOGLOBIN 27.8 pg (27.0-33.0); MEAN CORPUSCULAR VOLUME 84.3 fl (80.0-96.0); PLATELET COUNT, AUTOMATED 187 10^3/uL (150-450); RED BLOOD COUNT 3.13 10^6/uL (4.30-6.10); RED CELL DISTRIBUTION WIDTH 16.9 % (11.5-14.5); WHITE BLOOD COUNT 6.6 10^3/uL (4.0-10.0)
[2018-02-05 06:36] LABS: ALKALINE PHOSPHATASE 81 U/L (45-117); ALT/SGPT 22 U/L (12-78); ANION GAP 10 MEQ/L (8-16); AST/SGOT 17 U/L (7-37); BILIRUBIN,TOTAL 0.2 MG/DL (0.2-1.0); BLOOD UREA NITROGEN 58 MG/DL (7-18); CALCIUM LEVEL 8.4 MG/DL (8.8-10.2); CARBON DIOXIDE LEVEL 24 MEQ/L (21-32); CHLORIDE LEVEL 105 MEQ/L (98-107); CREATININE FOR GFR 2.93 MG/DL (0.70-1.30); GLOMERULAR FILTRATION RATE 22.9 (>49); GLUCOSE, FASTING 141 MG/DL (70-100); POTASSIUM SERUM 4.4 MEQ/L (3.5-5.1); SODIUM LEVEL 139 MEQ/L (136-145)
[2018-02-05 06:40] LABS: INR 0.98; PROTHROMBIN TIME 13.1 SECONDS (12.1-14.4)
[2018-02-05] MEDS: ACETAMINOPHEN TAB 650MG DOSE (2X325MG) PO ×2 (06:43→22:21)
[2018-02-05] MEDS: PANTOPRAZOLE 20 MG TAB PO (08:07)
[2018-02-05] MEDS: HumaLOG INSULIN (NovoLOG) PER UNIT SC ×4 (08:07→21:00)
[2018-02-05] MEDS: VITAMIN D 1,000 INTERNATIONAL UNITS TABLET PO (08:07)
[2018-02-05] MEDS: LACTOBACILLUS ACIDOPHILUS CAP (BACID) PO ×2 (08:07→19:58)
[2018-02-05] MEDS: FERROUS GLUCONATE 324 MG TAB PO (08:07)
[2018-02-05] MEDS: LIDOCAINE 5% (LIDODERM) PATCH TD (08:08)
[2018-02-05] MEDS: LEVEMIR (INSULIN DETEMIR) 1 UNITS/0.01ML SC (08:08)
[2018-02-05] MEDS: NYSTATIN 100,000 UNITS/GM TOPICAL PWD 15 GM TOP ×2 (08:08→19:58)
[2018-02-05 11:41] LABS: BEDSIDE GLUCOSE 165 MG/DL (80-115)
[2018-02-05] MEDS: HEPARIN DRIP 25,000 UNITS in APPROPRIATE DILUENT 1 EA IV (14:01)
[2018-02-05 16:33] LABS: BEDSIDE GLUCOSE 129 MG/DL (80-115)
[2018-02-05] MEDS: WARFARIN SOD 5 MG TAB PO (17:28)
[2018-02-05] MEDS: TAMSULOSIN 0.4 MG CAP PO (19:57)
[2018-02-05] MEDS: AMITRIPTYLINE 25 MG TAB PO (19:58)
[2018-02-05] MEDS: **NOTE PATIENT COMMENT** MISC XX (19:58)
[2018-02-05 22:03] LABS: BEDSIDE GLUCOSE 177 MG/DL (80-115)
[2018-02-05] MEDS: SANTYL OINT 30GM TOP (23:08)
[2018-02-06 06:30] LABS: HEMATOCRIT 27.7 % (42.0-52.0); MEAN CORPUSCULAR HEMOGLOBIN 27.6 pg (27.0-33.0); MEAN CORPUSCULAR HGB CONC 32.5 g/dl (32.0-36.5); PLATELET COUNT, AUTOMATED 203 10^3/uL (150-450); RED BLOOD COUNT 3.26 10^6/uL (4.30-6.10); RED CELL DISTRIBUTION WIDTH 16.8 % (11.5-14.5); WHITE BLOOD COUNT 6.7 10^3/uL (4.0-10.0)
[2018-02-06 06:46] LABS: INR 1.01; PROTHROMBIN TIME 13.4 SECONDS (12.1-14.4)
[2018-02-06 06:48] LABS: PARTIAL THROMBOPLASTIN TIME 55.7 SECONDS (25.4-37.6)
[2018-02-06 07:00] LABS: ALBUMIN 2.2 GM/DL (3.2-5.2); ALBUMIN/GLOBULIN RATIO 0.55 (1.00-1.93); ALKALINE PHOSPHATASE 85 U/L (45-117); ALT/SGPT 30 U/L (12-78); ANION GAP 9 MEQ/L (8-16); AST/SGOT 22 U/L (7-37); BILIRUBIN,TOTAL 0.3 MG/DL (0.2-1.0); BLOOD UREA NITROGEN 51 MG/DL (7-18); CALCIUM LEVEL 8.5 MG/DL (8.8-10.2); CARBON DIOXIDE LEVEL 25 MEQ/L (21-32); CHLORIDE LEVEL 105 MEQ/L (98-107); CREATININE FOR GFR 2.54 MG/DL (0.70-1.30); GLUCOSE, FASTING 134 MG/DL (70-100); POTASSIUM SERUM 4.4 MEQ/L (3.5-5.1); SODIUM LEVEL 139 MEQ/L (136-145); TOTAL PROTEIN 6.2 GM/DL (6.4-8.2)
[2018-02-06] MEDS: HEPARIN SOD (PORCINE) 5000 UNITS/ML VIAL IV (07:29)
[2018-02-06] MEDS: HEPARIN DRIP 25,000 UNITS in APPROPRIATE DILUENT 1 EA IV ×2 (07:29→22:47)
[2018-02-06] MEDS: LEVEMIR (INSULIN DETEMIR) 1 UNITS/0.01ML SC (07:48)
[2018-02-06] MEDS: HumaLOG INSULIN (NovoLOG) PER UNIT SC ×4 (07:48→20:51)
[2018-02-06] MEDS: LACTOBACILLUS ACIDOPHILUS CAP (BACID) PO ×2 (07:49→20:51)
[2018-02-06] MEDS: PANTOPRAZOLE 20 MG TAB PO (07:49)
[2018-02-06] MEDS: VITAMIN D 1,000 INTERNATIONAL UNITS TABLET PO (07:49)
[2018-02-06] MEDS: LIDOCAINE 5% (LIDODERM) PATCH TD (07:49)
[2018-02-06] MEDS: NYSTATIN 100,000 UNITS/GM TOPICAL PWD 15 GM TOP ×2 (07:49→20:52)
[2018-02-06] MEDS: SANTYL OINT 30GM TOP (07:50)
[2018-02-06] MEDS: FERROUS GLUCONATE 324 MG TAB PO (07:50)
[2018-02-06 11:34] LABS: BEDSIDE GLUCOSE 195 MG/DL (80-115)
[2018-02-06 12:43] LABS: PARTIAL THROMBOPLASTIN TIME 87.1 SECONDS (25.4-37.6)
[2018-02-06 16:40] LABS: BEDSIDE GLUCOSE 144 MG/DL (80-115)
[2018-02-06] MEDS: WARFARIN SOD 5 MG TAB PO (17:15)
[2018-02-06 18:30] LABS: PARTIAL THROMBOPLASTIN TIME 88.1 SECONDS (25.4-37.6)
[2018-02-06 20:19] LABS: BEDSIDE GLUCOSE 182 MG/DL (80-115)
[2018-02-06] MEDS: AMITRIPTYLINE 25 MG TAB PO (20:51)
[2018-02-06] MEDS: TAMSULOSIN 0.4 MG CAP PO (20:51)
[2018-02-06] MEDS: **NOTE PATIENT COMMENT** MISC XX (20:52)
[2018-02-06] MEDS: ACETAMINOPHEN TAB 650MG DOSE (2X325MG) PO (20:53)
[2018-02-07 06:13] LABS: HEMATOCRIT 28.3 % (42.0-52.0); MEAN CORPUSCULAR HEMOGLOBIN 27.2 pg (27.0-33.0); MEAN CORPUSCULAR HGB CONC 31.8 g/dl (32.0-36.5); MEAN CORPUSCULAR VOLUME 85.5 fl (80.0-96.0); PLATELET COUNT, AUTOMATED 185 10^3/uL (150-450); RED BLOOD COUNT 3.31 10^6/uL (4.30-6.10); RED CELL DISTRIBUTION WIDTH 16.7 % (11.5-14.5); WHITE BLOOD COUNT 6.5 10^3/uL (4.0-10.0)
[2018-02-07 06:25] LABS: INR 1.15; PROTHROMBIN TIME 14.9 SECONDS (12.1-14.4)
[2018-02-07 06:30] LABS: ALBUMIN 2.2 GM/DL (3.2-5.2); ALBUMIN/GLOBULIN RATIO 0.56 (1.00-1.93); ALKALINE PHOSPHATASE 89 U/L (45-117); ALT/SGPT 34 U/L (12-78); ANION GAP 5 MEQ/L (8-16); AST/SGOT 22 U/L (7-37); BILIRUBIN,TOTAL 0.2 MG/DL (0.2-1.0); BLOOD UREA NITROGEN 43 MG/DL (7-18); CALCIUM LEVEL 8.4 MG/DL (8.8-10.2); CARBON DIOXIDE LEVEL 28 MEQ/L (21-32); CHLORIDE LEVEL 106 MEQ/L (98-107); CREATININE FOR GFR 2.35 MG/DL (0.70-1.30); GLOMERULAR FILTRATION RATE 29.5 (>49); GLUCOSE, FASTING 165 MG/DL (70-100); POTASSIUM SERUM 4.3 MEQ/L (3.5-5.1); SODIUM LEVEL 139 MEQ/L (136-145); TOTAL PROTEIN 6.1 GM/DL (6.4-8.2)
[2018-02-07 06:47] LABS: PARTIAL THROMBOPLASTIN TIME 126.2 SECONDS (25.4-37.6)
[2018-02-07] MEDS: HEPARIN DRIP 25,000 UNITS in APPROPRIATE DILUENT 1 EA IV ×2 (07:53→17:52)
[2018-02-07] MEDS: PANTOPRAZOLE 20 MG TAB PO (08:09)
[2018-02-07] MEDS: FERROUS GLUCONATE 324 MG TAB PO (08:09)
[2018-02-07] MEDS: LACTOBACILLUS ACIDOPHILUS CAP (BACID) PO ×2 (08:09→20:42)
[2018-02-07] MEDS: VITAMIN D 1,000 INTERNATIONAL UNITS TABLET PO (08:10)
[2018-02-07] MEDS: ACETAMINOPHEN TAB 650MG DOSE (2X325MG) PO ×2 (08:10→20:47)
[2018-02-07] MEDS: LIDOCAINE 5% (LIDODERM) PATCH TD (08:12)
[2018-02-07] MEDS: HumaLOG INSULIN (NovoLOG) PER UNIT SC ×4 (08:13→21:00)
[2018-02-07] MEDS: LEVEMIR (INSULIN DETEMIR) 1 UNITS/0.01ML SC (08:14)
[2018-02-07] MEDS: NYSTATIN 100,000 UNITS/GM TOPICAL PWD 15 GM TOP ×2 (08:15→20:42)
[2018-02-07] MEDS: SANTYL OINT 30GM TOP (08:15)
[2018-02-07 11:49] LABS: BEDSIDE GLUCOSE 159 MG/DL (80-115)
[2018-02-07] MEDS: ONDANSETRON 4 MG TAB (S0181) PO (11:58)
[2018-02-07 14:20] LABS: PARTIAL THROMBOPLASTIN TIME 75.3 SECONDS (25.4-37.6)
[2018-02-07 17:13] LABS: BEDSIDE GLUCOSE 185 MG/DL (80-115)
[2018-02-07] MEDS: WARFARIN SOD 5 MG TAB PO (17:22)
[2018-02-07 19:39] LABS: PARTIAL THROMBOPLASTIN TIME 67.2 SECONDS (25.4-37.6)
[2018-02-07 20:07] LABS: BEDSIDE GLUCOSE 145 MG/DL (80-115)
[2018-02-07] MEDS: **NOTE PATIENT COMMENT** MISC XX (20:42)
[2018-02-07] MEDS: TAMSULOSIN 0.4 MG CAP PO (20:42)
[2018-02-07] MEDS: AMITRIPTYLINE 25 MG TAB PO (20:42)
[2018-02-08] MEDS: ACETAMINOPHEN TAB 650MG DOSE (2X325MG) PO ×3 (02:55→13:56)
[2018-02-08 05:48] LABS: BEDSIDE GLUCOSE 136 MG/DL (80-115)
[2018-02-08 06:20] LABS: INR 1.33; PROTHROMBIN TIME 16.7 SECONDS (12.1-14.4)
[2018-02-08 08:03] LABS: PARTIAL THROMBOPLASTIN TIME 82.6 SECONDS (25.4-37.6)
[2018-02-08] MEDS: FERROUS GLUCONATE 324 MG TAB PO (08:45)
[2018-02-08] MEDS: VITAMIN D 1,000 INTERNATIONAL UNITS TABLET PO (08:45)
[2018-02-08] MEDS: LACTOBACILLUS ACIDOPHILUS CAP (BACID) PO ×2 (08:47→21:10)
[2018-02-08] MEDS: LEVEMIR (INSULIN DETEMIR) 1 UNITS/0.01ML SC (08:48)
[2018-02-08] MEDS: HumaLOG INSULIN (NovoLOG) PER UNIT SC ×4 (08:48→21:00)
[2018-02-08] MEDS: SANTYL OINT 30GM TOP (08:49)
[2018-02-08] MEDS: LIDOCAINE 5% (LIDODERM) PATCH TD (08:49)
[2018-02-08] MEDS: NYSTATIN 100,000 UNITS/GM TOPICAL PWD 15 GM TOP ×2 (08:49→21:10)
[2018-02-08 08:54] LABS: ANION GAP 6 MEQ/L (8-16); BLOOD UREA NITROGEN 34 MG/DL (7-18); CARBON DIOXIDE LEVEL 27 MEQ/L (21-32); CHLORIDE LEVEL 109 MEQ/L (98-107); CREATININE FOR GFR 2.06 MG/DL (0.70-1.30); GLOMERULAR FILTRATION RATE 34.4 (>49); GLUCOSE, FASTING 134 MG/DL (70-100); POTASSIUM SERUM 4.5 MEQ/L (3.5-5.1); SODIUM LEVEL 142 MEQ/L (136-145)
[2018-02-08 11:56] LABS: BEDSIDE GLUCOSE 178 MG/DL (80-115)
[2018-02-08] MEDS: PANTOPRAZOLE 20 MG TAB PO (13:51)
[2018-02-08] MEDS: HEPARIN DRIP 25,000 UNITS in APPROPRIATE DILUENT 1 EA IV (13:56)
[2018-02-08 17:12] LABS: BEDSIDE GLUCOSE 262 MG/DL (80-115)
[2018-02-08] MEDS: WARFARIN SOD 5 MG TAB PO (17:34)
[2018-02-08] MEDS: **NOTE PATIENT COMMENT** MISC XX (21:00)
[2018-02-08] MEDS: TAMSULOSIN 0.4 MG CAP PO (21:10)
[2018-02-08] MEDS: AMITRIPTYLINE 25 MG TAB PO (21:10)
[2018-02-08] MEDS: ANALGESIC BALM CRM 120 GM TOP (21:17)
[2018-02-08 21:21] LABS: BEDSIDE GLUCOSE 151 MG/DL (80-115)
[2018-02-09] MEDS: ACETAMINOPHEN TAB 650MG DOSE (2X325MG) PO ×3 (00:11→14:19)
[2018-02-09 05:57] LABS: HEMATOCRIT 28.1 % (42.0-52.0); HEMOGLOBIN 9.1 g/dl (13.5-17.5); MEAN CORPUSCULAR HEMOGLOBIN 27.3 pg (27.0-33.0); MEAN CORPUSCULAR HGB CONC 32.4 g/dl (32.0-36.5); MEAN CORPUSCULAR VOLUME 84.4 fl (80.0-96.0); PLATELET COUNT, AUTOMATED 193 10^3/uL (150-450); RED BLOOD COUNT 3.33 10^6/uL (4.30-6.10); RED CELL DISTRIBUTION WIDTH 16.6 % (11.5-14.5); WHITE BLOOD COUNT 6.5 10^3/uL (4.0-10.0)
[2018-02-09 06:10] LABS: INR 1.99; PROTHROMBIN TIME 22.9 SECONDS (12.1-14.4)
[2018-02-09 06:14] LABS: ANION GAP 8 MEQ/L (8-16); BLOOD UREA NITROGEN 30 MG/DL (7-18); CALCIUM LEVEL 8.3 MG/DL (8.8-10.2); CARBON DIOXIDE LEVEL 25 MEQ/L (21-32); CHLORIDE LEVEL 107 MEQ/L (98-107); CREATININE FOR GFR 2.03 MG/DL (0.70-1.30); GLOMERULAR FILTRATION RATE 34.9 (>49); GLUCOSE, FASTING 116 MG/DL (70-100); POTASSIUM SERUM 4.1 MEQ/L (3.5-5.1); SODIUM LEVEL 140 MEQ/L (136-145)
[2018-02-09] MEDS: HumaLOG INSULIN (NovoLOG) PER UNIT SC ×4 (07:58→21:00)
[2018-02-09] MEDS: VITAMIN D 1,000 INTERNATIONAL UNITS TABLET PO (07:59)
[2018-02-09] MEDS: LACTOBACILLUS ACIDOPHILUS CAP (BACID) PO ×2 (07:59→20:57)
[2018-02-09] MEDS: PANTOPRAZOLE 20 MG TAB PO (07:59)
[2018-02-09] MEDS: LEVEMIR (INSULIN DETEMIR) 1 UNITS/0.01ML SC (07:59)
[2018-02-09] MEDS: FERROUS GLUCONATE 324 MG TAB PO (07:59)
[2018-02-09] MEDS: LIDOCAINE 5% (LIDODERM) PATCH TD (07:59)
[2018-02-09] MEDS: SANTYL OINT 30GM TOP (08:00)
[2018-02-09] MEDS: NYSTATIN 100,000 UNITS/GM TOPICAL PWD 15 GM TOP ×2 (08:00→20:57)
[2018-02-09] MEDS: HEPARIN DRIP 25,000 UNITS in APPROPRIATE DILUENT 1 EA IV (09:32)
[2018-02-09 12:07] LABS: PARTIAL THROMBOPLASTIN TIME 54.1 SECONDS (25.4-37.6)
[2018-02-09 12:09] LABS: BEDSIDE GLUCOSE 144 MG/DL (80-115)
[2018-02-09] MEDS: HEPARIN SOD (PORCINE) 5000 UNITS/ML VIAL IV (12:23)
[2018-02-09 16:35] LABS: BEDSIDE GLUCOSE 176 MG/DL (80-115)
[2018-02-09] MEDS: WARFARIN SOD 7.5 MG TAB PO (17:18)
[2018-02-09 17:53] LABS: PARTIAL THROMBOPLASTIN TIME 94.8 SECONDS (25.4-37.6)
[2018-02-09 20:33] LABS: BEDSIDE GLUCOSE 124 MG/DL (80-115)
[2018-02-09] MEDS: AMITRIPTYLINE 25 MG TAB PO (20:57)
[2018-02-09] MEDS: **NOTE PATIENT COMMENT** MISC XX (20:57)
[2018-02-09] MEDS: TAMSULOSIN 0.4 MG CAP PO (20:57)
[2018-02-09 23:18] LABS: PARTIAL THROMBOPLASTIN TIME 106.3 SECONDS (25.4-37.6)
[2018-02-10 06:33] LABS: MEAN CORPUSCULAR HEMOGLOBIN 27.2 pg (27.0-33.0); MEAN CORPUSCULAR HGB CONC 32.1 g/dl (32.0-36.5); MEAN CORPUSCULAR VOLUME 84.6 fl (80.0-96.0); PLATELET COUNT, AUTOMATED 204 10^3/uL (150-450); RED BLOOD COUNT 3.31 10^6/uL (4.30-6.10); RED CELL DISTRIBUTION WIDTH 16.8 % (11.5-14.5); WHITE BLOOD COUNT 7.3 10^3/uL (4.0-10.0)
[2018-02-10 06:50] LABS: INR 2.38; PROTHROMBIN TIME 26.5 SECONDS (12.1-14.4)
[2018-02-10 06:51] LABS: ANION GAP 9 MEQ/L (8-16); BLOOD UREA NITROGEN 29 MG/DL (7-18); CALCIUM LEVEL 8.4 MG/DL (8.8-10.2); CARBON DIOXIDE LEVEL 25 MEQ/L (21-32); CHLORIDE LEVEL 105 MEQ/L (98-107); CREATININE FOR GFR 2.24 MG/DL (0.70-1.30); GLOMERULAR FILTRATION RATE 31.2 (>49); GLUCOSE, FASTING 120 MG/DL (70-100); PARTIAL THROMBOPLASTIN TIME 80.3 SECONDS (25.4-37.6); POTASSIUM SERUM 4.1 MEQ/L (3.5-5.1); SODIUM LEVEL 139 MEQ/L (136-145)
[2018-02-10] MEDS: HumaLOG INSULIN (NovoLOG) PER UNIT SC ×4 (08:22→21:00)
[2018-02-10] MEDS: LEVEMIR (INSULIN DETEMIR) 1 UNITS/0.01ML SC (08:22)
[2018-02-10] MEDS: FERROUS GLUCONATE 324 MG TAB PO (08:23)
[2018-02-10] MEDS: LACTOBACILLUS ACIDOPHILUS CAP (BACID) PO ×2 (08:23→22:08)
[2018-02-10] MEDS: LIDOCAINE 5% (LIDODERM) PATCH TD (08:23)
[2018-02-10] MEDS: PANTOPRAZOLE 20 MG TAB PO (08:23)
[2018-02-10] MEDS: VITAMIN D 1,000 INTERNATIONAL UNITS TABLET PO (08:23)
[2018-02-10] MEDS: SANTYL OINT 30GM TOP (08:25)
[2018-02-10] MEDS: NYSTATIN 100,000 UNITS/GM TOPICAL PWD 15 GM TOP ×2 (08:25→22:10)
[2018-02-10] MEDS: ACETAMINOPHEN TAB 650MG DOSE (2X325MG) PO (09:29)
[2018-02-10 11:46] LABS: PARTIAL THROMBOPLASTIN TIME 71.1 SECONDS (25.4-37.6)
[2018-02-10 11:58] LABS: BEDSIDE GLUCOSE 186 MG/DL (80-115)
[2018-02-10] MEDS: ANALGESIC BALM CRM 120 GM TOP (12:05)
[2018-02-10] MEDS: WARFARIN SOD 5 MG TAB PO (18:08)
[2018-02-10 18:56] LABS: CK-MB VALUE MASS 2.3 NG/ML (<3.6); CPK CREATINE PHOSPHOKINASE 53 U/L (39-308); MB/CK RELATIVE INDEX 4.33 (< OR =4); TROPONIN I < 0.02 NG/ML (< 0.10)
[2018-02-10 20:32] LABS: CPK CREATINE PHOSPHOKINASE 53 U/L (39-308); TROPONIN I < 0.02 NG/ML (< 0.10)
[2018-02-10 20:33] LABS: CK-MB VALUE MASS 2.3 NG/ML (<3.6); MB/CK RELATIVE INDEX 4.33 (< OR =4)
[2018-02-10] MEDS: **NOTE PATIENT COMMENT** MISC XX (21:48)
[2018-02-10] MEDS: TAMSULOSIN 0.4 MG CAP PO (22:08)
[2018-02-10] MEDS: HEPARIN DRIP 25,000 UNITS in APPROPRIATE DILUENT 1 EA IV (22:08)
[2018-02-10] MEDS: AMITRIPTYLINE 25 MG TAB PO (22:08)
[2018-02-10 23:59] LABS: BEDSIDE GLUCOSE 137 MG/DL (80-115)
[2018-02-10 23:59] LABS: BEDSIDE GLUCOSE 80 MG/DL (80-115)
[2018-02-11 05:13] LABS: HEMATOCRIT 29.8 % (42.0-52.0); HEMOGLOBIN 9.3 g/dl (13.5-17.5); MEAN CORPUSCULAR HGB CONC 31.2 g/dl (32.0-36.5); MEAN CORPUSCULAR VOLUME 86.6 fl (80.0-96.0); PLATELET COUNT, AUTOMATED 192 10^3/uL (150-450); RED BLOOD COUNT 3.44 10^6/uL (4.30-6.10); RED CELL DISTRIBUTION WIDTH 16.8 % (11.5-14.5); WHITE BLOOD COUNT 7.3 10^3/uL (4.0-10.0)
[2018-02-11 05:40] LABS: INR 2.38; PROTHROMBIN TIME 26.5 SECONDS (12.1-14.4)
[2018-02-11 05:42] LABS: PARTIAL THROMBOPLASTIN TIME 80.6 SECONDS (25.4-37.6)
[2018-02-11 05:43] LABS: ANION GAP 6 MEQ/L (8-16); BLOOD UREA NITROGEN 29 MG/DL (7-18); CALCIUM LEVEL 8.4 MG/DL (8.8-10.2); CARBON DIOXIDE LEVEL 25 MEQ/L (21-32); CHLORIDE LEVEL 108 MEQ/L (98-107); CREATININE FOR GFR 2.24 MG/DL (0.70-1.30); GLOMERULAR FILTRATION RATE 31.2 (>49); GLUCOSE, FASTING 106 MG/DL (70-100); POTASSIUM SERUM 4.4 MEQ/L (3.5-5.1); SODIUM LEVEL 139 MEQ/L (136-145)
[2018-02-11] MEDS: HumaLOG INSULIN (NovoLOG) PER UNIT SC ×4 (08:12→21:00)
[2018-02-11] MEDS: VITAMIN D 1,000 INTERNATIONAL UNITS TABLET PO (08:13)
[2018-02-11] MEDS: FERROUS GLUCONATE 324 MG TAB PO (08:13)
[2018-02-11] MEDS: LACTOBACILLUS ACIDOPHILUS CAP (BACID) PO ×2 (08:13→21:06)
[2018-02-11] MEDS: PANTOPRAZOLE 20 MG TAB PO (08:13)
[2018-02-11] MEDS: LEVEMIR (INSULIN DETEMIR) 1 UNITS/0.01ML SC (08:13)
[2018-02-11] MEDS: ACETAMINOPHEN TAB 650MG DOSE (2X325MG) PO ×2 (08:14→18:44)
[2018-02-11] MEDS: LIDOCAINE 5% (LIDODERM) PATCH TD (08:15)
[2018-02-11] MEDS: NYSTATIN 100,000 UNITS/GM TOPICAL PWD 15 GM TOP ×2 (08:15→21:06)
[2018-02-11] MEDS: SANTYL OINT 30GM TOP (08:15)
[2018-02-11] MEDS: ANALGESIC BALM CRM 120 GM TOP (08:16)
[2018-02-11 11:10] LABS: PARTIAL THROMBOPLASTIN TIME 70.4 SECONDS (25.4-37.6)
[2018-02-11 12:01] LABS: BEDSIDE GLUCOSE 139 MG/DL (80-115)
[2018-02-11 17:14] LABS: BEDSIDE GLUCOSE 111 MG/DL (80-115)
[2018-02-11] MEDS: WARFARIN SOD 5 MG TAB PO (17:22)
[2018-02-11 20:13] LABS: BEDSIDE GLUCOSE 133 MG/DL (80-115)
[2018-02-11] MEDS: **NOTE PATIENT COMMENT** MISC XX (21:00)
[2018-02-11] MEDS: AMITRIPTYLINE 25 MG TAB PO (21:06)
[2018-02-11] MEDS: TAMSULOSIN 0.4 MG CAP PO (21:06)
[2018-02-12] MEDS: HEPARIN DRIP 25,000 UNITS in APPROPRIATE DILUENT 1 EA IV (02:21)
[2018-02-12 06:20] LABS: HEMATOCRIT 27.6 % (42.0-52.0); HEMOGLOBIN 8.7 g/dl (13.5-17.5); MEAN CORPUSCULAR HEMOGLOBIN 27.2 pg (27.0-33.0); MEAN CORPUSCULAR HGB CONC 31.5 g/dl (32.0-36.5); MEAN CORPUSCULAR VOLUME 86.3 fl (80.0-96.0); PLATELET COUNT, AUTOMATED 210 10^3/uL (150-450); RED CELL DISTRIBUTION WIDTH 16.7 % (11.5-14.5); WHITE BLOOD COUNT 6.6 10^3/uL (4.0-10.0)
[2018-02-12 06:37] LABS: INR 2.68; PROTHROMBIN TIME 29.1 SECONDS (12.1-14.4)
[2018-02-12 06:39] LABS: PARTIAL THROMBOPLASTIN TIME 104.5 SECONDS (25.4-37.6)
[2018-02-12 06:44] LABS: ANION GAP 9 MEQ/L (8-16); BLOOD UREA NITROGEN 29 MG/DL (7-18); CARBON DIOXIDE LEVEL 23 MEQ/L (21-32); CHLORIDE LEVEL 109 MEQ/L (98-107); CREATININE FOR GFR 2.35 MG/DL (0.70-1.30); GLOMERULAR FILTRATION RATE 29.5 (>49); GLUCOSE, FASTING 113 MG/DL (70-100); SODIUM LEVEL 141 MEQ/L (136-145)
[2018-02-12] MEDS ORDERED: KETOCONAZOLE 2% CREAM TOP (09:00)
[2018-02-12] MEDS: LACTOBACILLUS ACIDOPHILUS CAP (BACID) PO ×2 (09:06→20:29)
[2018-02-12] MEDS: PANTOPRAZOLE 20 MG TAB PO (09:06)
[2018-02-12] MEDS: FERROUS GLUCONATE 324 MG TAB PO (09:06)
[2018-02-12] MEDS: VITAMIN D 1,000 INTERNATIONAL UNITS TABLET PO (09:06)
[2018-02-12] MEDS: HumaLOG INSULIN (NovoLOG) PER UNIT SC ×4 (09:06→21:00)
[2018-02-12] MEDS: NYSTATIN 100,000 UNITS/GM TOPICAL PWD 15 GM TOP ×2 (09:07→20:29)
[2018-02-12] MEDS: LEVEMIR (INSULIN DETEMIR) 1 UNITS/0.01ML SC (09:07)
[2018-02-12] MEDS: LIDOCAINE 5% (LIDODERM) PATCH TD (09:07)
[2018-02-12] MEDS: SANTYL OINT 30GM TOP (09:08)
[2018-02-12] MEDS: KETOCONAZOLE 2% CREAM TOP ×2 (09:10→20:30)
[2018-02-12 11:58] LABS: BEDSIDE GLUCOSE 224 MG/DL (80-115)
[2018-02-12 16:59] LABS: BEDSIDE GLUCOSE 71 MG/DL (80-115)
[2018-02-12] MEDS: WARFARIN SOD 5 MG TAB PO (17:47)
[2018-02-12] MEDS: AMITRIPTYLINE 25 MG TAB PO (20:29)
[2018-02-12] MEDS: TAMSULOSIN 0.4 MG CAP PO (20:29)
[2018-02-12] MEDS: **NOTE PATIENT COMMENT** MISC XX (20:30)
[2018-02-12 20:39] LABS: BEDSIDE GLUCOSE 149 MG/DL (80-115)
[2018-02-13] MEDS: ACETAMINOPHEN TAB 650MG DOSE (2X325MG) PO ×3 (00:52→22:03)
[2018-02-13] MEDS: HEPARIN DRIP 25,000 UNITS in APPROPRIATE DILUENT 1 EA IV (02:33)
[2018-02-13 06:12] LABS: HEMATOCRIT 27.1 % (42.0-52.0); HEMOGLOBIN 8.4 g/dl (13.5-17.5); MEAN CORPUSCULAR HEMOGLOBIN 26.7 pg (27.0-33.0); PLATELET COUNT, AUTOMATED 225 10^3/uL (150-450); RED BLOOD COUNT 3.15 10^6/uL (4.30-6.10); RED CELL DISTRIBUTION WIDTH 16.8 % (11.5-14.5); WHITE BLOOD COUNT 5.8 10^3/uL (4.0-10.0)
[2018-02-13 06:27] LABS: INR 2.94; PROTHROMBIN TIME 31.3 SECONDS (12.1-14.4)
[2018-02-13 06:29] LABS: PARTIAL THROMBOPLASTIN TIME 110.7 SECONDS (25.4-37.6)
[2018-02-13 06:39] LABS: ANION GAP 10 MEQ/L (8-16); BLOOD UREA NITROGEN 27 MG/DL (7-18); CALCIUM LEVEL 8.3 MG/DL (8.8-10.2); CARBON DIOXIDE LEVEL 23 MEQ/L (21-32); CHLORIDE LEVEL 110 MEQ/L (98-107); GLOMERULAR FILTRATION RATE 31.8 (>49); GLUCOSE, FASTING 101 MG/DL (70-100); POTASSIUM SERUM 3.9 MEQ/L (3.5-5.1); SODIUM LEVEL 143 MEQ/L (136-145)
[2018-02-13] MEDS: HumaLOG INSULIN (NovoLOG) PER UNIT SC ×4 (07:30→22:01)
[2018-02-13] MEDS: VITAMIN D 1,000 INTERNATIONAL UNITS TABLET PO (09:58)
[2018-02-13] MEDS: FERROUS GLUCONATE 324 MG TAB PO (09:58)
[2018-02-13] MEDS: PANTOPRAZOLE 20 MG TAB PO (09:58)
[2018-02-13] MEDS: LACTOBACILLUS ACIDOPHILUS CAP (BACID) PO ×2 (09:58→22:00)
[2018-02-13] MEDS: NYSTATIN 100,000 UNITS/GM TOPICAL PWD 15 GM TOP ×2 (09:59→22:00)
[2018-02-13] MEDS: SANTYL OINT 30GM TOP (09:59)
[2018-02-13] MEDS: LIDOCAINE 5% (LIDODERM) PATCH TD (09:59)
[2018-02-13] MEDS: KETOCONAZOLE 2% CREAM TOP ×2 (10:01→22:01)
[2018-02-13] MEDS: LEVEMIR (INSULIN DETEMIR) 1 UNITS/0.01ML SC (10:01)
[2018-02-13 12:21] LABS: BEDSIDE GLUCOSE 205 MG/DL (80-115)
[2018-02-13 13:19] LABS: PARTIAL THROMBOPLASTIN TIME 63.5 SECONDS (25.4-37.6)
[2018-02-13] MEDS ORDERED: HEPARIN SOD (PORCINE) 5000 UNITS/ML VIAL As Ordered (14:54)
[2018-02-13 17:07] LABS: BEDSIDE GLUCOSE 112 MG/DL (80-115)
[2018-02-13] MEDS: WARFARIN SOD 5 MG TAB PO (18:03)
[2018-02-13 20:07] LABS: BEDSIDE GLUCOSE 213 MG/DL (80-115)
[2018-02-13 21:46] LABS: PARTIAL THROMBOPLASTIN TIME 132.9 SECONDS (25.4-37.6)
[2018-02-13] MEDS: AMITRIPTYLINE 25 MG TAB PO (22:00)
[2018-02-13] MEDS: TAMSULOSIN 0.4 MG CAP PO (22:00)
[2018-02-13] MEDS: **NOTE PATIENT COMMENT** MISC XX (22:02)
[2018-02-13] MEDS: ANALGESIC BALM CRM 120 GM TOP (22:02)
[2018-02-14 03:12] LABS: HEMATOCRIT 27.1 % (42.0-52.0); HEMOGLOBIN 8.7 g/dl (13.5-17.5); MEAN CORPUSCULAR HEMOGLOBIN 27.5 pg (27.0-33.0); MEAN CORPUSCULAR HGB CONC 32.1 g/dl (32.0-36.5); MEAN CORPUSCULAR VOLUME 85.8 fl (80.0-96.0); PLATELET COUNT, AUTOMATED 247 10^3/uL (150-450); RED BLOOD COUNT 3.16 10^6/uL (4.30-6.10); RED CELL DISTRIBUTION WIDTH 16.8 % (11.5-14.5); WHITE BLOOD COUNT 6.1 10^3/uL (4.0-10.0)
[2018-02-14 03:17] LABS: PROTHROMBIN TIME 31.8 SECONDS (12.1-14.4)
[2018-02-14 03:18] LABS: PARTIAL THROMBOPLASTIN TIME 92.6 SECONDS (25.4-37.6)
[2018-02-14 03:19] LABS: ANION GAP 8 MEQ/L (8-16); BLOOD UREA NITROGEN 25 MG/DL (7-18); CALCIUM LEVEL 8.3 MG/DL (8.8-10.2); CARBON DIOXIDE LEVEL 24 MEQ/L (21-32); CHLORIDE LEVEL 110 MEQ/L (98-107); CREATININE FOR GFR 2.05 MG/DL (0.70-1.30); GLOMERULAR FILTRATION RATE 34.5 (>49); GLUCOSE, FASTING 88 MG/DL (70-100); POTASSIUM SERUM 3.8 MEQ/L (3.5-5.1); SODIUM LEVEL 142 MEQ/L (136-145)
[2018-02-14 08:00] LABS: BEDSIDE GLUCOSE 101 MG/DL (80-115)
[2018-02-14] MEDS: HumaLOG INSULIN (NovoLOG) PER UNIT SC ×4 (08:16→21:32)
[2018-02-14] MEDS: VITAMIN D 1,000 INTERNATIONAL UNITS TABLET PO (08:16)
[2018-02-14] MEDS: LEVEMIR (INSULIN DETEMIR) 1 UNITS/0.01ML SC (08:16)
[2018-02-14] MEDS: LACTOBACILLUS ACIDOPHILUS CAP (BACID) PO ×2 (08:16→21:32)
[2018-02-14] MEDS: FERROUS GLUCONATE 324 MG TAB PO (08:17)
[2018-02-14] MEDS: LIDOCAINE 5% (LIDODERM) PATCH TD (08:17)
[2018-02-14] MEDS: PANTOPRAZOLE 20 MG TAB PO (08:17)
[2018-02-14] MEDS: NYSTATIN 100,000 UNITS/GM TOPICAL PWD 15 GM TOP ×2 (08:18→21:33)
[2018-02-14] MEDS: KETOCONAZOLE 2% CREAM TOP ×2 (08:19→21:33)
[2018-02-14] MEDS: ACETAMINOPHEN TAB 650MG DOSE (2X325MG) PO (08:21)
[2018-02-14] MEDS: SANTYL OINT 30GM TOP (09:00)
[2018-02-14 09:04] LABS: PARTIAL THROMBOPLASTIN TIME 83.4 SECONDS (25.4-37.6)
[2018-02-14] MEDS: HEPARIN DRIP 25,000 UNITS in APPROPRIATE DILUENT 1 EA IV ×2 (09:11→22:34)
[2018-02-14] MEDS: ANALGESIC BALM CRM 120 GM TOP (09:24)
[2018-02-14 11:46] LABS: BEDSIDE GLUCOSE 126 MG/DL (80-115)
[2018-02-14 14:49] LABS: PARTIAL THROMBOPLASTIN TIME 72.8 SECONDS (25.4-37.6)
[2018-02-14 17:42] LABS: BEDSIDE GLUCOSE 134 MG/DL (80-115)
[2018-02-14] MEDS: WARFARIN SOD 5 MG TAB PO (17:47)
[2018-02-14 19:56] LABS: BEDSIDE GLUCOSE 138 MG/DL (80-115)
[2018-02-14] MEDS: AMITRIPTYLINE 25 MG TAB PO (21:32)
[2018-02-14] MEDS: TAMSULOSIN 0.4 MG CAP PO (21:32)
[2018-02-14] MEDS: **NOTE PATIENT COMMENT** MISC XX (21:34)
[2018-02-15] MEDS: ACETAMINOPHEN TAB 650MG DOSE (2X325MG) PO ×4 (00:52→18:24)
[2018-02-15 05:59] LABS: HEMATOCRIT 28.1 % (42.0-52.0); HEMOGLOBIN 8.8 g/dl (13.5-17.5); MEAN CORPUSCULAR HEMOGLOBIN 26.7 pg (27.0-33.0); MEAN CORPUSCULAR HGB CONC 31.3 g/dl (32.0-36.5); MEAN CORPUSCULAR VOLUME 85.4 fl (80.0-96.0); PLATELET COUNT, AUTOMATED 272 10^3/uL (150-450); RED BLOOD COUNT 3.29 10^6/uL (4.30-6.10); RED CELL DISTRIBUTION WIDTH 16.5 % (11.5-14.5); WHITE BLOOD COUNT 6.3 10^3/uL (4.0-10.0)
[2018-02-15 06:08] LABS: ANION GAP 8 MEQ/L (8-16); BLOOD UREA NITROGEN 22 MG/DL (7-18); CALCIUM LEVEL 8.1 MG/DL (8.8-10.2); CARBON DIOXIDE LEVEL 24 MEQ/L (21-32); CHLORIDE LEVEL 110 MEQ/L (98-107); CREATININE FOR GFR 1.97 MG/DL (0.70-1.30); GLOMERULAR FILTRATION RATE 36.2 (>49); GLUCOSE, FASTING 106 MG/DL (70-100); POTASSIUM SERUM 3.8 MEQ/L (3.5-5.1); SODIUM LEVEL 142 MEQ/L (136-145)
[2018-02-15 06:16] LABS: INR 3.28; PROTHROMBIN TIME 34.1 SECONDS (12.1-14.4)
[2018-02-15 06:57] LABS: PARTIAL THROMBOPLASTIN TIME > 240.0 SECONDS (25.4-37.6)
[2018-02-15] MEDS: SANTYL OINT 30GM TOP (09:00)
[2018-02-15] MEDS: HumaLOG INSULIN (NovoLOG) PER UNIT SC ×4 (09:21→21:46)
[2018-02-15] MEDS: LEVEMIR (INSULIN DETEMIR) 1 UNITS/0.01ML SC (09:22)
[2018-02-15] MEDS: LIDOCAINE 5% (LIDODERM) PATCH TD (09:22)
[2018-02-15] MEDS: LACTOBACILLUS ACIDOPHILUS CAP (BACID) PO ×2 (09:24→21:48)
[2018-02-15] MEDS: FERROUS GLUCONATE 324 MG TAB PO (09:24)
[2018-02-15] MEDS: PANTOPRAZOLE 20 MG TAB PO (09:24)
[2018-02-15] MEDS: VITAMIN D 1,000 INTERNATIONAL UNITS TABLET PO (09:24)
[2018-02-15] MEDS: ANALGESIC BALM CRM 120 GM TOP (09:25)
[2018-02-15] MEDS: KETOCONAZOLE 2% CREAM TOP ×2 (09:26→21:46)
[2018-02-15] MEDS: NYSTATIN 100,000 UNITS/GM TOPICAL PWD 15 GM TOP ×2 (09:26→21:45)
[2018-02-15 12:03] LABS: BEDSIDE GLUCOSE 107 MG/DL (80-115)
[2018-02-15 13:02] LABS: PARTIAL THROMBOPLASTIN TIME 64.4 SECONDS (25.4-37.6)
[2018-02-15] MEDS: WARFARIN SOD 5 MG TAB PO (17:02)
[2018-02-15 17:08] LABS: BEDSIDE GLUCOSE 100 MG/DL (80-115)
[2018-02-15 19:50] LABS: BEDSIDE GLUCOSE 122 MG/DL (80-115)
[2018-02-15] MEDS: TAMSULOSIN 0.4 MG CAP PO (21:47)
[2018-02-15] MEDS: **NOTE PATIENT COMMENT** MISC XX (21:47)
[2018-02-15] MEDS: AMITRIPTYLINE 25 MG TAB PO (21:47)
[2018-02-16 06:29] LABS: INR 3.45; PROTHROMBIN TIME 35.5 SECONDS (12.1-14.4)
[2018-02-16 06:52] LABS: BEDSIDE GLUCOSE 87 MG/DL (80-115)
[2018-02-16] MEDS: HumaLOG INSULIN (NovoLOG) PER UNIT SC ×4 (07:47→21:06)
[2018-02-16] MEDS: PANTOPRAZOLE 20 MG TAB PO (08:53)
[2018-02-16] MEDS: FERROUS GLUCONATE 324 MG TAB PO (08:53)
[2018-02-16] MEDS: VITAMIN D 1,000 INTERNATIONAL UNITS TABLET PO (08:53)
[2018-02-16] MEDS: LACTOBACILLUS ACIDOPHILUS CAP (BACID) PO ×2 (08:53→21:47)
[2018-02-16] MEDS: LIDOCAINE 5% (LIDODERM) PATCH TD (08:53)
[2018-02-16] MEDS: ACETAMINOPHEN TAB 650MG DOSE (2X325MG) PO (08:53)
[2018-02-16] MEDS: NYSTATIN 100,000 UNITS/GM TOPICAL PWD 15 GM TOP ×2 (08:54→21:47)
[2018-02-16] MEDS: KETOCONAZOLE 2% CREAM TOP ×2 (08:54→21:47)
[2018-02-16] MEDS: SANTYL OINT 30GM TOP (09:00)
[2018-02-16 11:25] LABS: BEDSIDE GLUCOSE 127 MG/DL (80-115)
[2018-02-16] MEDS ORDERED: HEPARIN DRIP 25,000 UNITS in APPROPRIATE DILUENT 1 EA IV (11:36)
[2018-02-16] MEDS ORDERED: HEPARIN SOD (PORCINE) 5000 UNITS/ML VIAL IV ×2 (11:45)
[2018-02-16] MEDS: ANALGESIC BALM CRM 120 GM TOP ×2 (11:46→21:48)
[2018-02-16] MEDS: LEVEMIR (INSULIN DETEMIR) 1 UNITS/0.01ML SC (11:46)
[2018-02-16 12:18] LABS: HEMATOCRIT 27.3 % (42.0-52.0); HEMOGLOBIN 8.8 g/dl (13.5-17.5); MEAN CORPUSCULAR HEMOGLOBIN 27.3 pg (27.0-33.0); MEAN CORPUSCULAR HGB CONC 32.2 g/dl (32.0-36.5); MEAN CORPUSCULAR VOLUME 84.8 fl (80.0-96.0); PLATELET COUNT, AUTOMATED 287 10^3/uL (150-450); RED BLOOD COUNT 3.22 10^6/uL (4.30-6.10); RED CELL DISTRIBUTION WIDTH 16.3 % (11.5-14.5)
[2018-02-16 12:29] LABS: PARTIAL THROMBOPLASTIN TIME 88.3 SECONDS (25.4-37.6)
[2018-02-16 16:50] LABS: BEDSIDE GLUCOSE 101 MG/DL (80-115)
[2018-02-16] MEDS: WARFARIN SOD 5 MG TAB PO (18:28)
[2018-02-16 21:06] LABS: BEDSIDE GLUCOSE 151 MG/DL (80-115)
[2018-02-16] MEDS: ENOXAPARIN 150 MG/ML SYR (J1650) SC (21:46)
[2018-02-16] MEDS: TAMSULOSIN 0.4 MG CAP PO (21:47)
[2018-02-16] MEDS: AMITRIPTYLINE 25 MG TAB PO (21:47)
[2018-02-16] MEDS: **NOTE PATIENT COMMENT** MISC XX (21:48)
[2018-02-17 06:06] LABS: INR 3.93; PROTHROMBIN TIME 39.4 SECONDS (12.1-14.4)
[2018-02-17 06:27] LABS: BEDSIDE GLUCOSE 76 MG/DL (80-115)
[2018-02-17] MEDS: HumaLOG INSULIN (NovoLOG) PER UNIT SC ×4 (07:30→21:00)
[2018-02-17] MEDS: KETOCONAZOLE 2% CREAM TOP ×2 (08:50→21:44)
[2018-02-17] MEDS: NYSTATIN 100,000 UNITS/GM TOPICAL PWD 15 GM TOP ×2 (08:50→21:44)
[2018-02-17] MEDS: LIDOCAINE 5% (LIDODERM) PATCH TD (08:51)
[2018-02-17] MEDS: LEVEMIR (INSULIN DETEMIR) 1 UNITS/0.01ML SC (08:56)
[2018-02-17] MEDS: ACETAMINOPHEN TAB 650MG DOSE (2X325MG) PO (08:56)
[2018-02-17] MEDS: FERROUS GLUCONATE 324 MG TAB PO (08:57)
[2018-02-17] MEDS: ENOXAPARIN 150 MG/ML SYR (J1650) SC ×2 (08:57→21:45)
[2018-02-17] MEDS: PANTOPRAZOLE 20 MG TAB PO (08:57)
[2018-02-17] MEDS: LACTOBACILLUS ACIDOPHILUS CAP (BACID) PO ×2 (08:57→21:45)
[2018-02-17] MEDS: VITAMIN D 1,000 INTERNATIONAL UNITS TABLET PO (08:57)
[2018-02-17] MEDS: SANTYL OINT 30GM TOP (08:57)
[2018-02-17 08:58] LABS: BEDSIDE GLUCOSE 128 MG/DL (80-115)
[2018-02-17 12:00] LABS: BEDSIDE GLUCOSE 112 MG/DL (80-115)
[2018-02-17] MEDS: WARFARIN SOD 5 MG TAB PO ×2 (17:00→17:30)
[2018-02-17 17:12] LABS: BEDSIDE GLUCOSE 87 MG/DL (80-115)
[2018-02-17] MEDS: **NOTE PATIENT COMMENT** MISC XX (21:00)
[2018-02-17] MEDS: ANALGESIC BALM CRM 120 GM TOP (21:44)
[2018-02-17] MEDS: TAMSULOSIN 0.4 MG CAP PO (21:45)
[2018-02-17] MEDS: AMITRIPTYLINE 25 MG TAB PO (21:45)
[2018-02-18] MEDS: ACETAMINOPHEN TAB 650MG DOSE (2X325MG) PO ×2 (02:20→21:30)
[2018-02-18 06:16] LABS: HEMATOCRIT 27.2 % (42.0-52.0); HEMOGLOBIN 8.8 g/dl (13.5-17.5); MEAN CORPUSCULAR HEMOGLOBIN 27.3 pg (27.0-33.0); MEAN CORPUSCULAR HGB CONC 32.4 g/dl (32.0-36.5); MEAN CORPUSCULAR VOLUME 84.5 fl (80.0-96.0); PLATELET COUNT, AUTOMATED 306 10^3/uL (150-450); RED BLOOD COUNT 3.22 10^6/uL (4.30-6.10); WHITE BLOOD COUNT 5.5 10^3/uL (4.0-10.0)
[2018-02-18 06:42] LABS: ALBUMIN 2.3 GM/DL (3.2-5.2); ALBUMIN/GLOBULIN RATIO 0.61 (1.00-1.93); ALKALINE PHOSPHATASE 103 U/L (45-117); ALT/SGPT 18 U/L (12-78); ANION GAP 10 MEQ/L (8-16); AST/SGOT 18 U/L (7-37); BILIRUBIN,TOTAL 0.3 MG/DL (0.2-1.0); BLOOD UREA NITROGEN 18 MG/DL (7-18); CALCIUM LEVEL 8.2 MG/DL (8.8-10.2); CARBON DIOXIDE LEVEL 23 MEQ/L (21-32); CHLORIDE LEVEL 109 MEQ/L (98-107); CREATININE FOR GFR 1.71 MG/DL (0.70-1.30); GLOMERULAR FILTRATION RATE 42.6 (>49); GLUCOSE, FASTING 79 MG/DL (70-100); POTASSIUM SERUM 3.6 MEQ/L (3.5-5.1); SODIUM LEVEL 142 MEQ/L (136-145); TOTAL PROTEIN 6.1 GM/DL (6.4-8.2)
[2018-02-18] MEDS: HumaLOG INSULIN (NovoLOG) PER UNIT SC ×4 (07:30→20:14)
[2018-02-18] MEDS: LEVEMIR (INSULIN DETEMIR) 1 UNITS/0.01ML SC (09:00)
[2018-02-18] MEDS: SANTYL OINT 30GM TOP (09:00)
[2018-02-18] MEDS: PANTOPRAZOLE 20 MG TAB PO (09:12)
[2018-02-18] MEDS: FERROUS GLUCONATE 324 MG TAB PO (09:12)
[2018-02-18] MEDS: VITAMIN D 1,000 INTERNATIONAL UNITS TABLET PO (09:12)
[2018-02-18] MEDS: LACTOBACILLUS ACIDOPHILUS CAP (BACID) PO ×2 (09:12→21:30)
[2018-02-18] MEDS: ENOXAPARIN 150 MG/ML SYR (J1650) SC ×2 (09:12→21:30)
[2018-02-18] MEDS: NYSTATIN 100,000 UNITS/GM TOPICAL PWD 15 GM TOP ×2 (09:13→21:31)
[2018-02-18] MEDS: KETOCONAZOLE 2% CREAM TOP ×2 (09:13→21:00)
[2018-02-18] MEDS: LIDOCAINE 5% (LIDODERM) PATCH TD (09:13)
[2018-02-18 12:20] LABS: BEDSIDE GLUCOSE 102 MG/DL (80-115)
[2018-02-18 12:21] LABS: BEDSIDE GLUCOSE 102 MG/DL (80-115)
[2018-02-18] MEDS: LOPERAMIDE 2 MG CAP PO (13:41)
[2018-02-18] MEDS: CYCLOBENZAPRINE 5MG TABLET PO ×2 (13:41→21:30)
[2018-02-18] MEDS: **NOTE PATIENT COMMENT** MISC XX (21:00)
[2018-02-18] MEDS: AMITRIPTYLINE 25 MG TAB PO (21:30)
[2018-02-18] MEDS: TAMSULOSIN 0.4 MG CAP PO (21:30)
[2018-02-18] MEDS: ANALGESIC BALM CRM 120 GM TOP (21:31)
[2018-02-19] MEDS: CYCLOBENZAPRINE 5MG TABLET PO ×3 (05:36→21:06)
[2018-02-19] MEDS: HumaLOG INSULIN (NovoLOG) PER UNIT SC ×4 (08:48→21:00)
[2018-02-19] MEDS: VITAMIN D 1,000 INTERNATIONAL UNITS TABLET PO (08:49)
[2018-02-19] MEDS: LOPERAMIDE 2 MG CAP PO (08:49)
[2018-02-19] MEDS: LEVEMIR (INSULIN DETEMIR) 1 UNITS/0.01ML SC (08:49)
[2018-02-19] MEDS: LACTOBACILLUS ACIDOPHILUS CAP (BACID) PO ×2 (08:49→21:05)
[2018-02-19] MEDS: FERROUS GLUCONATE 324 MG TAB PO (08:49)
[2018-02-19] MEDS: PANTOPRAZOLE 20 MG TAB PO (08:49)
[2018-02-19] MEDS: LIDOCAINE 5% (LIDODERM) PATCH TD (08:50)
[2018-02-19] MEDS: NYSTATIN 100,000 UNITS/GM TOPICAL PWD 15 GM TOP ×2 (08:50→21:08)
[2018-02-19] MEDS: ENOXAPARIN 150 MG/ML SYR (J1650) SC ×2 (08:50→21:06)
[2018-02-19] MEDS: KETOCONAZOLE 2% CREAM TOP ×2 (09:36→21:08)
[2018-02-19] MEDS: ACETAMINOPHEN TAB 650MG DOSE (2X325MG) PO (11:34)
[2018-02-19] MEDS: TAMSULOSIN 0.4 MG CAP PO (21:06)
[2018-02-19] MEDS: AMITRIPTYLINE 25 MG TAB PO (21:06)
[2018-02-19] MEDS: **NOTE PATIENT COMMENT** MISC XX (21:09)
[2018-02-20] MEDS: CYCLOBENZAPRINE 5MG TABLET PO ×2 (05:29→14:15)
[2018-02-20] MEDS: HumaLOG INSULIN (NovoLOG) PER UNIT SC ×4 (07:30→20:34)
[2018-02-20] MEDS: PANTOPRAZOLE 20 MG TAB PO (08:21)
[2018-02-20] MEDS: VITAMIN D 1,000 INTERNATIONAL UNITS TABLET PO (08:21)
[2018-02-20] MEDS: LACTOBACILLUS ACIDOPHILUS CAP (BACID) PO ×2 (08:21→20:34)
[2018-02-20] MEDS: FERROUS GLUCONATE 324 MG TAB PO (08:21)
[2018-02-20] MEDS: LOPERAMIDE 2 MG CAP PO (08:21)
[2018-02-20] MEDS: LIDOCAINE 5% (LIDODERM) PATCH TD (08:21)
[2018-02-20] MEDS: LEVEMIR (INSULIN DETEMIR) 1 UNITS/0.01ML SC (08:22)
[2018-02-20] MEDS: ENOXAPARIN 150 MG/ML SYR (J1650) SC ×2 (08:22→20:34)
[2018-02-20] MEDS: KETOCONAZOLE 2% CREAM TOP ×2 (08:23→20:43)
[2018-02-20] MEDS: NYSTATIN 100,000 UNITS/GM TOPICAL PWD 15 GM TOP ×2 (08:23→20:43)
[2018-02-20] MEDS: ANALGESIC BALM CRM 120 GM TOP (14:15)
[2018-02-20 16:52] LABS: BEDSIDE GLUCOSE 86 MG/DL (80-115)
[2018-02-20] MEDS: ACETAMINOPHEN TAB 650MG DOSE (2X325MG) PO (18:05)
[2018-02-20] MEDS: AMITRIPTYLINE 25 MG TAB PO (20:34)
[2018-02-20] MEDS: TAMSULOSIN 0.4 MG CAP PO (20:34)
[2018-02-20] MEDS: **NOTE PATIENT COMMENT** MISC XX (20:43)
[2018-02-20] MEDS: METAXALONE 800 MG TABLET PO (21:19)
[2018-02-20] MEDS: DICLOFENAC EPOLAMINE 1.3 % PATCH TOP (21:20)
[2018-02-21] MEDS: ACETAMINOPHEN TAB 650MG DOSE (2X325MG) PO ×3 (02:42→20:12)
[2018-02-21 06:56] LABS: BASO # 0.1 10^3/uL (0.0-0.2); BASO % 0.8 % (0.0-1.0); EOS # 0.1 10^3/uL (0.0-0.50); EOS % 1.4 % (0.0-3.0); HEMATOCRIT 27.9 % (42.0-52.0); HEMOGLOBIN 9.2 g/dl (13.5-17.5); IMMATURE GRANULOCYTE % 1.1 % (0-3.0); LYMPH # 1.1 10^3/uL (1.5-4.5); LYMPH % 16.8 % (24.0-44.0); MEAN CORPUSCULAR HEMOGLOBIN 27.1 pg (27.0-33.0); MEAN CORPUSCULAR VOLUME 82.3 fl (80.0-96.0); MONO # 0.9 10^3/uL (0.0-0.8); MONO % 13.3 % (0.0-5.0); NEUTROPHILS # 4.3 10^3/uL (1.8-7.7); NEUTROPHILS % 66.6 % (36.0-66.0); PLATELET COUNT, AUTOMATED 315 10^3/uL (150-450); RED BLOOD COUNT 3.39 10^6/uL (4.30-6.10); RED CELL DISTRIBUTION WIDTH 15.7 % (11.5-14.5); WHITE BLOOD COUNT 6.5 10^3/uL (4.0-10.0)
[2018-02-21 07:23] LABS: ALBUMIN 2.2 GM/DL (3.2-5.2); ALBUMIN/GLOBULIN RATIO 0.67 (1.00-1.93); ALKALINE PHOSPHATASE 94 U/L (45-117); ALT/SGPT 15 U/L (12-78); ANION GAP 10 MEQ/L (8-16); AST/SGOT 15 U/L (7-37); BILIRUBIN,TOTAL 0.3 MG/DL (0.2-1.0); BLOOD UREA NITROGEN 16 MG/DL (7-18); CALCIUM LEVEL 7.7 MG/DL (8.8-10.2); CARBON DIOXIDE LEVEL 24 MEQ/L (21-32); CHLORIDE LEVEL 106 MEQ/L (98-107); CREATININE FOR GFR 1.66 MG/DL (0.70-1.30); GLOMERULAR FILTRATION RATE 44.1 (>49); GLUCOSE, FASTING 104 MG/DL (70-100); POTASSIUM SERUM 3.5 MEQ/L (3.5-5.1); SODIUM LEVEL 140 MEQ/L (136-145); TOTAL PROTEIN 5.5 GM/DL (6.4-8.2); URIC ACID 7.9 MG/DL (3.5-7.2)
[2018-02-21] MEDS: HumaLOG INSULIN (NovoLOG) PER UNIT SC ×4 (07:30→20:03)
[2018-02-21] MEDS: DICLOFENAC EPOLAMINE 1.3 % PATCH TOP ×2 (08:23→20:11)
[2018-02-21] MEDS: ENOXAPARIN 150 MG/ML SYR (J1650) SC ×2 (08:23→20:11)
[2018-02-21] MEDS: LIDOCAINE 5% (LIDODERM) PATCH TD (08:24)
[2018-02-21] MEDS: PANTOPRAZOLE 20 MG TAB PO (08:25)
[2018-02-21] MEDS: LACTOBACILLUS ACIDOPHILUS CAP (BACID) PO ×2 (08:25→20:12)
[2018-02-21] MEDS: VITAMIN D 1,000 INTERNATIONAL UNITS TABLET PO (08:25)
[2018-02-21] MEDS: LEVEMIR (INSULIN DETEMIR) 1 UNITS/0.01ML SC (08:25)
[2018-02-21] MEDS: METAXALONE 800 MG TABLET PO ×3 (08:25→20:12)
[2018-02-21] MEDS: FERROUS GLUCONATE 324 MG TAB PO (08:25)
[2018-02-21] MEDS: NYSTATIN 100,000 UNITS/GM TOPICAL PWD 15 GM TOP ×2 (08:26→20:12)
[2018-02-21] MEDS: LOPERAMIDE 2 MG CAP PO (08:26)
[2018-02-21] MEDS: KETOCONAZOLE 2% CREAM TOP ×2 (08:27→20:13)
[2018-02-21] MEDS: BISACODYL 10 MG SUPP PR (08:36)
[2018-02-21 12:11] LABS: BEDSIDE GLUCOSE 137 MG/DL (80-115)
[2018-02-21 12:11] LABS: BEDSIDE GLUCOSE 170 MG/DL (80-115)
[2018-02-21 12:11] LABS: BEDSIDE GLUCOSE 113 MG/DL (80-115)
[2018-02-21 12:11] LABS: BEDSIDE GLUCOSE 116 MG/DL (80-115)
[2018-02-21 12:11] LABS: BEDSIDE GLUCOSE 135 MG/DL (80-115)
[2018-02-21 12:11] LABS: BEDSIDE GLUCOSE 96 MG/DL (80-115)
[2018-02-21 12:11] LABS: BEDSIDE GLUCOSE 117 MG/DL (80-115)
[2018-02-21 12:11] LABS: BEDSIDE GLUCOSE 103 MG/DL (80-115)
[2018-02-21 12:11] LABS: BEDSIDE GLUCOSE 203 MG/DL (80-115)
[2018-02-21 12:11] LABS: BEDSIDE GLUCOSE 115 MG/DL (80-115)
[2018-02-21] MEDS: COLCHICINE 0.6 MG TAB PO ×2 (15:11→16:26)
[2018-02-21] MEDS: FEBUXOSTAT 40 MG TABLET (ULORIC) PO (15:12)
[2018-02-21 16:40] LABS: BEDSIDE GLUCOSE 144 MG/DL (80-115)
[2018-02-21 20:01] LABS: BEDSIDE GLUCOSE 203 MG/DL (80-115)
[2018-02-21] MEDS: AMITRIPTYLINE 25 MG TAB PO (20:12)
[2018-02-21] MEDS: TAMSULOSIN 0.4 MG CAP PO (20:12)
[2018-02-21] MEDS: **NOTE PATIENT COMMENT** MISC XX (20:13)
[2018-02-22 06:46] LABS: BEDSIDE GLUCOSE 87 MG/DL (80-115)
[2018-02-22] MEDS: HumaLOG INSULIN (NovoLOG) PER UNIT SC ×4 (07:30→20:55)
[2018-02-22] MEDS: DICLOFENAC EPOLAMINE 1.3 % PATCH TOP ×2 (08:41→20:53)
[2018-02-22] MEDS: PANTOPRAZOLE 20 MG TAB PO (08:42)
[2018-02-22] MEDS: LACTOBACILLUS ACIDOPHILUS CAP (BACID) PO ×2 (08:42→20:53)
[2018-02-22] MEDS: FERROUS GLUCONATE 324 MG TAB PO (08:42)
[2018-02-22] MEDS: VITAMIN D 1,000 INTERNATIONAL UNITS TABLET PO (08:42)
[2018-02-22] MEDS: LEVEMIR (INSULIN DETEMIR) 1 UNITS/0.01ML SC (08:42)
[2018-02-22] MEDS: METAXALONE 800 MG TABLET PO ×3 (08:42→20:53)
[2018-02-22] MEDS: FEBUXOSTAT 40 MG TABLET (ULORIC) PO (08:42)
[2018-02-22] MEDS: LIDOCAINE 5% (LIDODERM) PATCH TD (08:42)
[2018-02-22] MEDS: ENOXAPARIN 150 MG/ML SYR (J1650) SC ×2 (08:43→20:53)
[2018-02-22] MEDS: LOPERAMIDE 2 MG CAP PO (08:43)
[2018-02-22] MEDS: NYSTATIN 100,000 UNITS/GM TOPICAL PWD 15 GM TOP ×2 (08:45→20:55)
[2018-02-22] MEDS: KETOCONAZOLE 2% CREAM TOP ×2 (08:49→20:55)
[2018-02-22 11:40] LABS: BEDSIDE GLUCOSE 119 MG/DL (80-115)
[2018-02-22 16:50] LABS: BEDSIDE GLUCOSE 77 MG/DL (80-115)
[2018-02-22 20:01] LABS: BEDSIDE GLUCOSE 168 MG/DL (80-115)
[2018-02-22] MEDS: AMITRIPTYLINE 25 MG TAB PO (20:53)
[2018-02-22] MEDS: TAMSULOSIN 0.4 MG CAP PO (20:53)
[2018-02-22] MEDS: ACETAMINOPHEN TAB 650MG DOSE (2X325MG) PO (20:54)
[2018-02-22] MEDS: **NOTE PATIENT COMMENT** MISC XX (20:55)
[2018-02-23 06:14] LABS: ALBUMIN 2.1 GM/DL (3.2-5.2); ANION GAP 8 MEQ/L (8-16); BLOOD UREA NITROGEN 17 MG/DL (7-18); CALCIUM LEVEL 7.7 MG/DL (8.8-10.2); CARBON DIOXIDE LEVEL 26 MEQ/L (21-32); CHLORIDE LEVEL 109 MEQ/L (98-107); CREATININE FOR GFR 1.72 MG/DL (0.70-1.30); GLOMERULAR FILTRATION RATE 42.3 (>49); GLUCOSE, FASTING 80 MG/DL (70-100); PHOSPHORUS LEVEL 3.2 MG/DL (2.5-4.9); POTASSIUM SERUM 3.6 MEQ/L (3.5-5.1); SODIUM LEVEL 143 MEQ/L (136-145); URIC ACID 6.5 MG/DL (3.5-7.2)
[2018-02-23] MEDS: HumaLOG INSULIN (NovoLOG) PER UNIT SC ×4 (07:30→20:20)
[2018-02-23] MEDS: LOPERAMIDE 2 MG CAP PO (08:54)
[2018-02-23] MEDS: LEVEMIR (INSULIN DETEMIR) 1 UNITS/0.01ML SC (08:54)
[2018-02-23] MEDS: PANTOPRAZOLE 20 MG TAB PO (08:54)
[2018-02-23] MEDS: LACTOBACILLUS ACIDOPHILUS CAP (BACID) PO ×2 (08:54→20:20)
[2018-02-23] MEDS: FERROUS GLUCONATE 324 MG TAB PO (08:54)
[2018-02-23] MEDS: ENOXAPARIN 150 MG/ML SYR (J1650) SC ×2 (08:54→20:19)
[2018-02-23] MEDS: FEBUXOSTAT 40 MG TABLET (ULORIC) PO (08:54)
[2018-02-23] MEDS: METAXALONE 800 MG TABLET PO ×3 (08:54→20:20)
[2018-02-23] MEDS: DICLOFENAC EPOLAMINE 1.3 % PATCH TOP ×2 (08:55→20:17)
[2018-02-23] MEDS: LIDOCAINE 5% (LIDODERM) PATCH TD (08:55)
[2018-02-23] MEDS: NYSTATIN 100,000 UNITS/GM TOPICAL PWD 15 GM TOP ×2 (08:56→20:21)
[2018-02-23] MEDS: KETOCONAZOLE 2% CREAM TOP ×2 (08:56→20:22)
[2018-02-23] MEDS: VITAMIN D 1,000 INTERNATIONAL UNITS TABLET PO (09:49)
[2018-02-23 11:39] LABS: BEDSIDE GLUCOSE 129 MG/DL (80-115)
[2018-02-23 17:02] LABS: BEDSIDE GLUCOSE 91 MG/DL (80-115)
[2018-02-23] MEDS: TAMSULOSIN 0.4 MG CAP PO (20:20)
[2018-02-23] MEDS: AMITRIPTYLINE 25 MG TAB PO (20:20)
[2018-02-23] MEDS: **NOTE PATIENT COMMENT** MISC XX (20:22)
[2018-02-23 20:29] LABS: BEDSIDE GLUCOSE 117 MG/DL (80-115)
[2018-02-23] MEDS: ACETAMINOPHEN TAB 650MG DOSE (2X325MG) PO (20:31)
[2018-02-24 06:18] LABS: BEDSIDE GLUCOSE 104 MG/DL (80-115)
[2018-02-24] MEDS: HumaLOG INSULIN (NovoLOG) PER UNIT SC ×4 (07:30→21:00)
[2018-02-24] MEDS: LOPERAMIDE 2 MG CAP PO (08:36)
[2018-02-24] MEDS: METAXALONE 800 MG TABLET PO ×3 (08:36→22:29)
[2018-02-24] MEDS: VITAMIN D 1,000 INTERNATIONAL UNITS TABLET PO (08:37)
[2018-02-24] MEDS: PANTOPRAZOLE 20 MG TAB PO (08:37)
[2018-02-24] MEDS: FEBUXOSTAT 40 MG TABLET (ULORIC) PO (08:37)
[2018-02-24] MEDS: ENOXAPARIN 150 MG/ML SYR (J1650) SC ×2 (08:37→22:28)
[2018-02-24] MEDS: LACTOBACILLUS ACIDOPHILUS CAP (BACID) PO ×2 (08:37→22:29)
[2018-02-24] MEDS: FERROUS GLUCONATE 324 MG TAB PO (08:37)
[2018-02-24] MEDS: LEVEMIR (INSULIN DETEMIR) 1 UNITS/0.01ML SC (08:38)
[2018-02-24] MEDS: LIDOCAINE 5% (LIDODERM) PATCH TD (08:38)
[2018-02-24] MEDS: NYSTATIN 100,000 UNITS/GM TOPICAL PWD 15 GM TOP ×2 (08:38→22:30)
[2018-02-24] MEDS: DICLOFENAC EPOLAMINE 1.3 % PATCH TOP ×2 (08:38→22:29)
[2018-02-24] MEDS: KETOCONAZOLE 2% CREAM TOP ×2 (09:04→22:30)
[2018-02-24 11:23] LABS: BEDSIDE GLUCOSE 141 MG/DL (80-115)
[2018-02-24 16:37] LABS: BEDSIDE GLUCOSE 78 MG/DL (80-115)
[2018-02-24 20:50] LABS: BEDSIDE GLUCOSE 140 MG/DL (80-115)
[2018-02-24] MEDS: **NOTE PATIENT COMMENT** MISC XX (21:00)
[2018-02-24] MEDS: AMITRIPTYLINE 25 MG TAB PO (22:29)
[2018-02-24] MEDS: TAMSULOSIN 0.4 MG CAP PO (22:29)
[2018-02-25 06:46] LABS: BEDSIDE GLUCOSE 99 MG/DL (80-115)
[2018-02-25] MEDS: HumaLOG INSULIN (NovoLOG) PER UNIT SC ×2 (07:36→08:15)
[2018-02-25] MEDS: LIDOCAINE 5% (LIDODERM) PATCH TD (08:12)
[2018-02-25] MEDS: METAXALONE 800 MG TABLET PO (08:12)
[2018-02-25] MEDS: LACTOBACILLUS ACIDOPHILUS CAP (BACID) PO (08:12)
[2018-02-25] MEDS: DICLOFENAC EPOLAMINE 1.3 % PATCH TOP (08:12)
[2018-02-25] MEDS: VITAMIN D 1,000 INTERNATIONAL UNITS TABLET PO (08:12)
[2018-02-25] MEDS: FEBUXOSTAT 40 MG TABLET (ULORIC) PO (08:12)
[2018-02-25] MEDS: PANTOPRAZOLE 20 MG TAB PO (08:12)
[2018-02-25] MEDS: LOPERAMIDE 2 MG CAP PO (08:12)
[2018-02-25] MEDS: ENOXAPARIN 150 MG/ML SYR (J1650) SC (08:13)
[2018-02-25] MEDS: FERROUS GLUCONATE 324 MG TAB PO (08:13)
[2018-02-25] MEDS: LEVEMIR (INSULIN DETEMIR) 1 UNITS/0.01ML SC (08:13)
[2018-02-25] MEDS: KETOCONAZOLE 2% CREAM TOP (08:14)
[2018-02-25] MEDS: NYSTATIN 100,000 UNITS/GM TOPICAL PWD 15 GM TOP (08:14)
== END 2018-02-25 11:40 | DRG 698 ==
LOC: M ICU 02-01 17:44 → M MSPAV 02-03 15:04 → M PCU 11:48
PROVIDERS: Family Medicine
PROC: 02HV33Z Insertion of Infusion Device into Superior Vena Cava, Percutaneous Approach (ICD-10-PCS; principal; 2018-02-02)
PROC: B5131ZA Fluoroscopy of Right Jugular Veins using Low Osmolar Contrast, Guidance (ICD-10-PCS; 2018-02-02)
PROC: 02HV33Z Insertion of Infusion Device into Superior Vena Cava, Percutaneous Approach (ICD-10-PCS; 2018-02-02)
PROC: B51M1ZA Fluoroscopy of Right Upper Extremity Veins using Low Osmolar Contrast, Guidance (ICD-10-PCS; 2018-02-02)
PROC: 30233N1 Transfusion of Nonautologous Red Blood Cells into Peripheral Vein, Percutaneous Approach (ICD-10-PCS; 2018-02-02)
DX: I82.3 Embolism and thrombosis of renal vein (principal); I82.220 Acute embolism and thrombosis of inferior vena cava; N17.9 Acute kidney failure, unspecified; I82.403 Acute embolism and thrombosis of unspecified deep veins of lower extremity, bilateral; G61.0 Guillain-Barre syndrome; E87.2 Acidosis; L03.115 Cellulitis of right lower limb; L02.415 Cutaneous abscess of right lower limb; I82.622 Acute embolism and thrombosis of deep veins of left upper extremity; I82.612 Acute embolism and thrombosis of superficial veins of left upper extremity; D63.1 Anemia in chronic kidney disease; I95.9 Hypotension, unspecified; K52.9 Noninfective gastroenteritis and colitis, unspecified; I12.9 Hypertensive chronic kidney disease with stage 1 through stage 4 chronic kidney disease, or unspecified chronic kidney disease; L21.9 Seborrheic dermatitis, unspecified; M62.838 Other muscle spasm; D50.9 Iron deficiency anemia, unspecified; E11.51 Type 2 diabetes mellitus with diabetic peripheral angiopathy without gangrene; E11.22 Type 2 diabetes mellitus with diabetic chronic kidney disease; E87.5 Hyperkalemia; N18.3 Chronic kidney disease, stage 3 (moderate); I48.91 Unspecified atrial fibrillation; Z79.82 Long term (current) use of aspirin; Z79.01 Long term (current) use of anticoagulants; Z79.4 Long term (current) use of insulin; Z79.52 Long term (current) use of systemic steroids; Z79.899 Other long term (current) drug therapy; Z88.1 Allergy status to other antibiotic agents; Z95.828 Presence of other vascular implants and grafts

== ENCOUNTER → 2018-02-27 | Outpatient (REF) ==
[2018-02-27 11:25] LABS: BASO # 0.1 10^3/uL (0.0-0.2); BASO % 0.9 % (0.0-1.0); EOS # 0.2 10^3/uL (0.0-0.50); EOS % 3.1 % (0.0-3.0); HEMATOCRIT 30.1 % (42.0-52.0); HEMOGLOBIN 9.5 g/dl (13.5-17.5); IMMATURE GRANULOCYTE % 1.8 % (0-3.0); LYMPH # 1.4 10^3/uL (1.5-4.5); LYMPH % 19.9 % (24.0-44.0); MEAN CORPUSCULAR HGB CONC 31.6 g/dl (32.0-36.5); MEAN CORPUSCULAR VOLUME 85.5 fl (80.0-96.0); MONO # 0.6 10^3/uL (0.0-0.8); MONO % 9.3 % (0.0-5.0); NEUTROPHILS # 4.4 10^3/uL (1.8-7.7); PLATELET COUNT, AUTOMATED 398 10^3/uL (150-450); RED BLOOD COUNT 3.52 10^6/uL (4.30-6.10); RED CELL DISTRIBUTION WIDTH 15.7 % (11.5-14.5); WHITE BLOOD COUNT 6.8 10^3/uL (4.0-10.0)
[2018-02-27 11:47] LABS: ALBUMIN 2.6 GM/DL (3.2-5.2); ANION GAP 8 MEQ/L (8-16); BLOOD UREA NITROGEN 18 MG/DL (7-18); CALCIUM LEVEL 8.2 MG/DL (8.8-10.2); CARBON DIOXIDE LEVEL 27 MEQ/L (21-32); CHLORIDE LEVEL 107 MEQ/L (98-107); CREATININE FOR GFR 1.72 MG/DL (0.70-1.30); GLOMERULAR FILTRATION RATE 42.3 (>49); GLUCOSE, FASTING 77 MG/DL (70-100); SODIUM LEVEL 142 MEQ/L (136-145)
[2018-02-27 11:55] LABS: PTH INTACT 52.5 PG/ML (18.5-88.0)
[2018-02-27 18:44] LABS: APPEARANCE, URINE CLEAR (CLEAR); BACTERIA, URINE AUTO NEGATIVE (NEGATIVE); BILIRUBIN, URINE AUTO NEGATIVE (NEGATIVE); BLOOD, URINE BLOOD 1+ (NEGATIVE); COLOR, URINE STRAW (YELLOW); GLUCOSE, URINE (UA) AUTO 1+ mg/dL (NEGATIVE); KETONE, URINE AUTO NEGATIVE (NEGATIVE); LEUKOCYTE ESTERASE, URINE AUTO NEGATIVE (NEGATIVE); MUCUS, URINE SMALL (NEGATIVE); NITRITE, URINE AUTO NEGATIVE (NEGATIVE); PROTEIN, URINE AUTO 2+ mg/dL (NEGATIVE); RBC, URINE AUTO 2 /HPF (0-3); SPECIFIC GRAVITY URINE AUTO 1.009 (1.002-1.035); SQUAMOUS EPITHELIAL CELL UR AU 0 /HPF (0-6); UROBILINOGEN, URINE AUTO 0.2 mg/dL (0.0-2.0); WBC, URINE AUTO 1 /HPF (0-3)
== END ==
DX: N18.9 Chronic kidney disease, unspecified (principal)

== ENCOUNTER 2018-03-05 09:05 | Outpatient (REF) ==
[2018-03-06 10:02] LABS: HEMATOCRIT 32.3 % (42.0-52.0); HEMOGLOBIN 10.1 g/dl (13.5-17.5); MEAN CORPUSCULAR HEMOGLOBIN 26.9 pg (27.0-33.0); MEAN CORPUSCULAR HGB CONC 31.3 g/dl (32.0-36.5); MEAN CORPUSCULAR VOLUME 85.9 fl (80.0-96.0); PLATELET COUNT, AUTOMATED 349 10^3/uL (150-450); RED BLOOD COUNT 3.76 10^6/uL (4.30-6.10); RED CELL DISTRIBUTION WIDTH 16.1 % (11.5-14.5); WHITE BLOOD COUNT 7.3 10^3/uL (4.0-10.0)
[2018-03-06 10:32] LABS: ANION GAP 10 MEQ/L (8-16); BLOOD UREA NITROGEN 24 MG/DL (7-18); CALCIUM LEVEL 8.7 MG/DL (8.8-10.2); CARBON DIOXIDE LEVEL 26 MEQ/L (21-32); CHLORIDE LEVEL 108 MEQ/L (98-107); CREATININE FOR GFR 1.89 MG/DL (0.70-1.30); GLOMERULAR FILTRATION RATE 37.9 (>49); GLUCOSE, FASTING 95 MG/DL (70-100); SODIUM LEVEL 144 MEQ/L (136-145)
== END 2018-03-06 ==
DX: N18.9 Chronic kidney disease, unspecified (principal)

== ENCOUNTER → 2018-03-13 | Outpatient (REF) ==
[2018-03-13 09:44] LABS: HEMATOCRIT 32.6 % (42.0-52.0); HEMOGLOBIN 10.3 g/dl (13.5-17.5); MEAN CORPUSCULAR HEMOGLOBIN 27.2 pg (27.0-33.0); MEAN CORPUSCULAR HGB CONC 31.6 g/dl (32.0-36.5); PLATELET COUNT, AUTOMATED 293 10^3/uL (150-450); RED BLOOD COUNT 3.79 10^6/uL (4.30-6.10); RED CELL DISTRIBUTION WIDTH 16.8 % (11.5-14.5); WHITE BLOOD COUNT 6.9 10^3/uL (4.0-10.0)
[2018-03-13 15:26] LABS: ANION GAP 8 MEQ/L (8-16); BLOOD UREA NITROGEN 28 MG/DL (7-18); CALCIUM LEVEL 8.3 MG/DL (8.8-10.2); CARBON DIOXIDE LEVEL 26 MEQ/L (21-32); CHLORIDE LEVEL 108 MEQ/L (98-107); CREATININE FOR GFR 2.05 MG/DL (0.70-1.30); GLOMERULAR FILTRATION RATE 34.5 (>49); GLUCOSE, FASTING 123 MG/DL (70-100); POTASSIUM SERUM 4.3 MEQ/L (3.5-5.1); SODIUM LEVEL 142 MEQ/L (136-145)
== END ==
DX: N18.9 Chronic kidney disease, unspecified (principal)

== ENCOUNTER → 2018-03-20 | Outpatient (REF) ==
[2018-03-20 09:35] LABS: HEMATOCRIT 30.8 % (42.0-52.0); HEMOGLOBIN 9.8 g/dl (13.5-17.5); MEAN CORPUSCULAR HEMOGLOBIN 27.4 pg (27.0-33.0); MEAN CORPUSCULAR HGB CONC 31.8 g/dl (32.0-36.5); PLATELET COUNT, AUTOMATED 255 10^3/uL (150-450); RED BLOOD COUNT 3.58 10^6/uL (4.30-6.10); RED CELL DISTRIBUTION WIDTH 16.1 % (11.5-14.5); WHITE BLOOD COUNT 5.3 10^3/uL (4.0-10.0)
[2018-03-20 10:06] LABS: ANION GAP 9 MEQ/L (8-16); BLOOD UREA NITROGEN 27 MG/DL (7-18); CALCIUM LEVEL 8.6 MG/DL (8.8-10.2); CARBON DIOXIDE LEVEL 27 MEQ/L (21-32); CHLORIDE LEVEL 107 MEQ/L (98-107); CREATININE FOR GFR 1.91 MG/DL (0.70-1.30); GLOMERULAR FILTRATION RATE 37.5 (>49); GLUCOSE, FASTING 128 MG/DL (70-100); POTASSIUM SERUM 4.5 MEQ/L (3.5-5.1); SODIUM LEVEL 143 MEQ/L (136-145)
== END ==
DX: N18.9 Chronic kidney disease, unspecified (principal)

== ENCOUNTER → 2018-03-25 | Outpatient (REF) ==
[2018-03-25 13:41] LABS: ANION GAP 11 MEQ/L (8-16); BLOOD UREA NITROGEN 35 MG/DL (7-18); CALCIUM LEVEL 8.4 MG/DL (8.8-10.2); CARBON DIOXIDE LEVEL 23 MEQ/L (21-32); CHLORIDE LEVEL 106 MEQ/L (98-107); CREATININE FOR GFR 2.21 MG/DL (0.70-1.30); GLOMERULAR FILTRATION RATE 31.7 (>49); GLUCOSE, FASTING 211 MG/DL (70-100); POTASSIUM SERUM 4.1 MEQ/L (3.5-5.1); SODIUM LEVEL 140 MEQ/L (136-145)
== END ==
DX: N18.9 Chronic kidney disease, unspecified (principal)

== ENCOUNTER → 2018-03-26 | Outpatient (REF) ==
[~2018-03-26] MED LIST changes: -ALBUTEROL SULFATE 2.5 MG/0.5 ML INH NEB SOLN NEB; -DEXTROSE 50% 50 ML SYRINGE IV; -FLEET ENEMA PR; -GLUCAGON FOR INJ 1 MG VIAL (J1610) SC; -GLUCOSE 4 GM CHEW TABLET PO; +HEPARIN 1,000 UNITS/ML 10ML VIAL (FOR RADIOLOGY& DIALYSIS ONLY) As Ordered; +ISOVUE-300 61% 50ML VIAL (Q9967) As Ordered; +LIDOCAINE 2% MDV 20 ML VIAL As Ordered; -LOPERAMIDE 2 MG CAP PO; -LORazepam 0.5 MG TAB PO; -MAALOX 30 ML SUSP *UDC PO; +MIDAZOLAM INJ 2 MG/2 ML VIAL (J2250) As Ordered; +fentaNYL 100 MCG/2 ML INJECTION (J3010) As Ordered
== END | disposition home or self-care (01) ==
LOC: M IRPRO 07:33
DX: I70.245 Atherosclerosis of native arteries of left leg with ulceration of other part of foot (principal); L97.529 Non-pressure chronic ulcer of other part of left foot with unspecified severity; E11.22 Type 2 diabetes mellitus with diabetic chronic kidney disease; I12.9 Hypertensive chronic kidney disease with stage 1 through stage 4 chronic kidney disease, or unspecified chronic kidney disease; N18.9 Chronic kidney disease, unspecified; E78.00 Pure hypercholesterolemia, unspecified; G61.0 Guillain-Barre syndrome; I69.354 Hemiplegia and hemiparesis following cerebral infarction affecting left non-dominant side; I87.2 Venous insufficiency (chronic) (peripheral); Z89.431 Acquired absence of right foot
CPT/HCPCS: 36247

== ENCOUNTER → 2018-03-27 | Outpatient (REF) ==
[2018-03-27 10:28] LABS: HEMATOCRIT 30.8 % (42.0-52.0); HEMOGLOBIN 9.9 g/dl (13.5-17.5); MEAN CORPUSCULAR HEMOGLOBIN 27.6 pg (27.0-33.0); MEAN CORPUSCULAR HGB CONC 32.1 g/dl (32.0-36.5); MEAN CORPUSCULAR VOLUME 85.8 fl (80.0-96.0); PLATELET COUNT, AUTOMATED 283 10^3/uL (150-450); RED BLOOD COUNT 3.59 10^6/uL (4.30-6.10); RED CELL DISTRIBUTION WIDTH 15.8 % (11.5-14.5); WHITE BLOOD COUNT 6.7 10^3/uL (4.0-10.0)
[2018-03-27 11:17] LABS: ANION GAP 10 MEQ/L (8-16); BLOOD UREA NITROGEN 32 MG/DL (7-18); CALCIUM LEVEL 8.7 MG/DL (8.8-10.2); CARBON DIOXIDE LEVEL 24 MEQ/L (21-32); CHLORIDE LEVEL 108 MEQ/L (98-107); CREATININE FOR GFR 1.95 MG/DL (0.70-1.30); GLOMERULAR FILTRATION RATE 36.6 (>49); GLUCOSE, FASTING 200 MG/DL (70-100); SODIUM LEVEL 142 MEQ/L (136-145)
== END ==
DX: N18.9 Chronic kidney disease, unspecified (principal)

== ENCOUNTER → 2018-03-30 | Outpatient (CLI) | payer MEDICARE | LOC: M RAD 08:51 | DX: E11.621 Type 2 diabetes mellitus with foot ulcer (principal); L97.511 Non-pressure chronic ulcer of other part of right foot limited to breakdown of skin ==

== ENCOUNTER → 2018-03-31 | Outpatient (REF) ==
[2018-03-31 09:52] LABS: HEMATOCRIT 27.9 % (42.0-52.0); MEAN CORPUSCULAR HEMOGLOBIN 27.4 pg (27.0-33.0); MEAN CORPUSCULAR HGB CONC 32.3 g/dl (32.0-36.5); MEAN CORPUSCULAR VOLUME 84.8 fl (80.0-96.0); PLATELET COUNT, AUTOMATED 307 10^3/uL (150-450); RED BLOOD COUNT 3.29 10^6/uL (4.30-6.10); RED CELL DISTRIBUTION WIDTH 15.5 % (11.5-14.5); WHITE BLOOD COUNT 9.4 10^3/uL (4.0-10.0)
[2018-03-31 10:11] LABS: ANION GAP 10 MEQ/L (8-16); BLOOD UREA NITROGEN 32 MG/DL (7-18); CALCIUM LEVEL 8.5 MG/DL (8.8-10.2); CARBON DIOXIDE LEVEL 25 MEQ/L (21-32); CHLORIDE LEVEL 107 MEQ/L (98-107); CREATININE FOR GFR 2.12 MG/DL (0.70-1.30); GLOMERULAR FILTRATION RATE 33.2 (>49); GLUCOSE, FASTING 124 MG/DL (70-100); POTASSIUM SERUM 4.5 MEQ/L (3.5-5.1); SODIUM LEVEL 142 MEQ/L (136-145)
== END ==
DX: N18.9 Chronic kidney disease, unspecified (principal)

== ENCOUNTER → 2018-04-01 | Outpatient (REF) ==
[2018-04-01 09:48] LABS: ERYTHROCYTE SEDIMENTATION RATE 127 mm/hr (0-20)
== END ==
DX: M86.171 Other acute osteomyelitis, right ankle and foot (principal)

== ENCOUNTER 2018-04-02 10:57 | Inpatient (IN) | payer MEDICARE ==
[2018-04-02 12:01] LABS: BASO # 0.1 10^3/uL (0.0-0.2); BASO % 0.8 % (0.0-1.0); EOS # 0.2 10^3/uL (0.0-0.50); EOS % 2.6 % (0.0-3.0); HEMATOCRIT 29.3 % (42.0-52.0); HEMOGLOBIN 9.1 g/dl (13.5-17.5); IMMATURE GRANULOCYTE % 1.6 % (0-3.0); LYMPH # 1.2 10^3/uL (1.5-4.5); MEAN CORPUSCULAR HEMOGLOBIN 27.3 pg (27.0-33.0); MEAN CORPUSCULAR HGB CONC 31.1 g/dl (32.0-36.5); MONO # 0.7 10^3/uL (0.0-0.8); NEUTROPHILS # 6.5 10^3/uL (1.8-7.7); PLATELET COUNT, AUTOMATED 328 10^3/uL (150-450); RED BLOOD COUNT 3.33 10^6/uL (4.30-6.10); RED CELL DISTRIBUTION WIDTH 15.6 % (11.5-14.5); WHITE BLOOD COUNT 8.8 10^3/uL (4.0-10.0)
[2018-04-02 12:18] LABS: ANION GAP 9 MEQ/L (8-16); BLOOD UREA NITROGEN 38 MG/DL (7-18); C REACTIVE PROTEIN QUANTITATIV 8.78 MG/DL (0.00-0.30); CALCIUM LEVEL 8.5 MG/DL (8.8-10.2); CARBON DIOXIDE LEVEL 25 MEQ/L (21-32); CHLORIDE LEVEL 107 MEQ/L (98-107); CREATININE FOR GFR 2.72 MG/DL (0.70-1.30); GLOMERULAR FILTRATION RATE 24.9 (>49); GLUCOSE, FASTING 188 MG/DL (70-100); POTASSIUM SERUM 4.5 MEQ/L (3.5-5.1); SODIUM LEVEL 141 MEQ/L (136-145)
[2018-04-02 12:37] LABS: ERYTHROCYTE SEDIMENTATION RATE 127 mm/hr (0-20)
[2018-04-02] MEDS: VANCOMYCIN HCL 1,000 MG, VIAL MATE ADAPTER 1 EACH in D5W 250 ML IV (13:29)
[2018-04-02] MEDS ORDERED: BISACODYL 5 MG TAB PO (14:00)
[2018-04-02] MEDS ORDERED: ONDANSETRON 4MG/2ML VIAL (J2405) IV (14:00)
[2018-04-02] MEDS ORDERED: VANCOMYCIN HCL 1,000 MG, VIAL MATE ADAPTER 1 EACH in D5W 250 ML IV (14:15)
[2018-04-02] MEDS ORDERED: DEXTROSE 50% 50 ML SYRINGE IV (14:15)
[2018-04-02] MEDS ORDERED: GLUCAGON FOR INJ 1 MG VIAL (J1610) SC (14:15)
[2018-04-02] MEDS ORDERED: MOM 30ML SUSPENSION UDC PO (14:15)
[2018-04-02] MEDS ORDERED: GLUCOSE 4 GM CHEW TABLET PO (14:15)
[2018-04-02 14:22] LABS: ESTIMATED AVERAGE GLUCOSE 131 MG/DL (60-110); HEMOGLOBIN A1c 6.2 %
[2018-04-02 16:58] LABS: BEDSIDE GLUCOSE 110 MG/DL (80-115)
[2018-04-02] MEDS: HumaLOG INSULIN (NovoLOG) PER UNIT SC ×2 (17:30→21:00)
[2018-04-02] MEDS: METAXALONE 800 MG TABLET PO ×2 (18:02→21:32)
[2018-04-02 20:04] LABS: BEDSIDE GLUCOSE 195 MG/DL (80-115)
[2018-04-02] MEDS: SENOKOT S TAB PO (21:00)
[2018-04-02] MEDS: METOPROLOL TART 12.5 MG PER 1/2 TAB PO (21:30)
[2018-04-02] MEDS: ENOXAPARIN 100MG/1ML SYRINGE (J1650) SC (21:31)
[2018-04-02] MEDS: TAMSULOSIN 0.4 MG CAP PO (21:32)
[2018-04-02] MEDS: AMITRIPTYLINE 25 MG TAB PO (21:32)
[2018-04-02] MEDS: FLUDROCORTISONE ACETATE 0.1 MG TAB PO (21:33)
[2018-04-03] MEDS: ACETAMINOPHEN 500 MG TAB PO (06:06)
[2018-04-03] MEDS: VANCOMYCIN HCL 500 MG in D5W MINI-BAG PLUS 100 ML IV (06:46)
[2018-04-03 07:25] LABS: BASO # 0.1 10^3/uL (0.0-0.2); BASO % 0.6 % (0.0-1.0); EOS # 0.3 10^3/uL (0.0-0.50); EOS % 3.2 % (0.0-3.0); HEMATOCRIT 27.7 % (42.0-52.0); HEMOGLOBIN 8.8 g/dl (13.5-17.5); IMMATURE GRANULOCYTE % 1.1 % (0-3.0); LYMPH # 1.2 10^3/uL (1.5-4.5); LYMPH % 14.6 % (24.0-44.0); MEAN CORPUSCULAR HEMOGLOBIN 27.4 pg (27.0-33.0); MEAN CORPUSCULAR HGB CONC 31.8 g/dl (32.0-36.5); MEAN CORPUSCULAR VOLUME 86.3 fl (80.0-96.0); MONO # 0.7 10^3/uL (0.0-0.8); MONO % 8.5 % (0.0-5.0); NEUTROPHILS # 5.9 10^3/uL (1.8-7.7); PLATELET COUNT, AUTOMATED 337 10^3/uL (150-450); RED BLOOD COUNT 3.21 10^6/uL (4.30-6.10); RED CELL DISTRIBUTION WIDTH 15.5 % (11.5-14.5); WHITE BLOOD COUNT 8.1 10^3/uL (4.0-10.0)
[2018-04-03 07:26] LABS: ANION GAP 9 MEQ/L (8-16); BLOOD UREA NITROGEN 38 MG/DL (7-18); C REACTIVE PROTEIN QUANTITATIV 6.36 MG/DL (0.00-0.30); CALCIUM LEVEL 8.4 MG/DL (8.8-10.2); CARBON DIOXIDE LEVEL 24 MEQ/L (21-32); CHLORIDE LEVEL 110 MEQ/L (98-107); CREATININE FOR GFR 2.35 MG/DL (0.70-1.30); GLOMERULAR FILTRATION RATE 29.5 (>49); GLUCOSE, FASTING 108 MG/DL (70-100); SODIUM LEVEL 143 MEQ/L (136-145)
[2018-04-03] MEDS: HumaLOG INSULIN (NovoLOG) PER UNIT SC ×4 (07:30→20:30)
[2018-04-03] MEDS: METAXALONE 800 MG TABLET PO ×3 (08:10→20:30)
[2018-04-03] MEDS: PANTOPRAZOLE 40MG TAB (PROTONIX) PO (08:10)
[2018-04-03] MEDS: ENOXAPARIN 100MG/1ML SYRINGE (J1650) SC ×2 (08:10→20:29)
[2018-04-03] MEDS: SENOKOT S TAB PO ×2 (08:10→20:30)
[2018-04-03] MEDS: FEBUXOSTAT 40 MG TABLET (ULORIC) PO (08:10)
[2018-04-03] MEDS: VITAMIN D 1,000 INTERNATIONAL UNITS TABLET PO (08:10)
[2018-04-03] MEDS: LEVEMIR (INSULIN DETEMIR) 1 UNITS/0.01ML SC (08:11)
[2018-04-03] MEDS: METOPROLOL TART 12.5 MG PER 1/2 TAB PO ×2 (08:11→20:30)
[2018-04-03 11:29] LABS: BEDSIDE GLUCOSE 148 MG/DL (80-115)
[2018-04-03 16:31] LABS: BEDSIDE GLUCOSE 138 MG/DL (80-115)
[2018-04-03 19:34] LABS: BEDSIDE GLUCOSE 170 MG/DL (80-115)
[2018-04-03] MEDS: FLUDROCORTISONE ACETATE 0.1 MG TAB PO (20:30)
[2018-04-03] MEDS: TAMSULOSIN 0.4 MG CAP PO (20:30)
[2018-04-03] MEDS: AMITRIPTYLINE 25 MG TAB PO (20:30)
[2018-04-04 06:16] LABS: BASO # 0.1 10^3/uL (0.0-0.2); BASO % 0.7 % (0.0-1.0); EOS # 0.3 10^3/uL (0.0-0.50); EOS % 3.5 % (0.0-3.0); HEMATOCRIT 26.6 % (42.0-52.0); HEMOGLOBIN 8.5 g/dl (13.5-17.5); IMMATURE GRANULOCYTE % 1.1 % (0-3.0); LYMPH # 1.4 10^3/uL (1.5-4.5); LYMPH % 18.9 % (24.0-44.0); MEAN CORPUSCULAR HEMOGLOBIN 27.2 pg (27.0-33.0); MEAN CORPUSCULAR VOLUME 85.3 fl (80.0-96.0); MONO # 0.5 10^3/uL (0.0-0.8); MONO % 7.5 % (0.0-5.0); NEUTROPHILS # 4.9 10^3/uL (1.8-7.7); NEUTROPHILS % 68.3 % (36.0-66.0); PLATELET COUNT, AUTOMATED 321 10^3/uL (150-450); RED BLOOD COUNT 3.12 10^6/uL (4.30-6.10); RED CELL DISTRIBUTION WIDTH 15.3 % (11.5-14.5); WHITE BLOOD COUNT 7.2 10^3/uL (4.0-10.0)
[2018-04-04] MEDS: VANCOMYCIN HCL 500 MG in D5W MINI-BAG PLUS 100 ML IV (06:31)
[2018-04-04 06:35] LABS: ANION GAP 9 MEQ/L (8-16); BLOOD UREA NITROGEN 38 MG/DL (7-18); C REACTIVE PROTEIN QUANTITATIV 4.24 MG/DL (0.00-0.30); CALCIUM LEVEL 8.6 MG/DL (8.8-10.2); CARBON DIOXIDE LEVEL 23 MEQ/L (21-32); CHLORIDE LEVEL 111 MEQ/L (98-107); CREATININE FOR GFR 2.15 MG/DL (0.70-1.30); GLOMERULAR FILTRATION RATE 32.7 (>49); GLUCOSE, FASTING 127 MG/DL (70-100); POTASSIUM SERUM 3.8 MEQ/L (3.5-5.1); SODIUM LEVEL 143 MEQ/L (136-145)
[2018-04-04] MEDS: HumaLOG INSULIN (NovoLOG) PER UNIT SC ×4 (07:57→20:53)
[2018-04-04] MEDS: METOPROLOL TART 12.5 MG PER 1/2 TAB PO ×2 (08:23→21:00)
[2018-04-04] MEDS: METAXALONE 800 MG TABLET PO ×3 (08:24→21:01)
[2018-04-04] MEDS: FEBUXOSTAT 40 MG TABLET (ULORIC) PO (08:24)
[2018-04-04] MEDS: PANTOPRAZOLE 40MG TAB (PROTONIX) PO (08:24)
[2018-04-04] MEDS: VITAMIN D 1,000 INTERNATIONAL UNITS TABLET PO (08:24)
[2018-04-04] MEDS: SENOKOT S TAB PO ×2 (08:24→21:00)
[2018-04-04] MEDS: FERROUS GLUCONATE 324 MG TAB PO (08:24)
[2018-04-04] MEDS: ENOXAPARIN 100MG/1ML SYRINGE (J1650) SC ×2 (08:25→21:01)
[2018-04-04] MEDS: LEVEMIR (INSULIN DETEMIR) 1 UNITS/0.01ML SC (08:25)
[2018-04-04] MEDS: ACETAMINOPHEN 500 MG TAB PO ×2 (08:26→21:02)
[2018-04-04 10:29] LABS: VANCOMYCIN RANDOM 9.1 UG/ML
[2018-04-04 11:39] LABS: BEDSIDE GLUCOSE 188 MG/DL (80-115)
[2018-04-04 16:58] LABS: BEDSIDE GLUCOSE 78 MG/DL (80-115)
[2018-04-04 19:53] LABS: BEDSIDE GLUCOSE 222 MG/DL (80-115)
[2018-04-04] MEDS: TAMSULOSIN 0.4 MG CAP PO (21:01)
[2018-04-04] MEDS: VANCOMYCIN HCL 1,000 MG, VIAL MATE ADAPTER 1 EACH in D5W 250 ML IV (21:01)
[2018-04-04] MEDS: AMITRIPTYLINE 25 MG TAB PO (21:01)
[2018-04-04] MEDS: FLUDROCORTISONE ACETATE 0.1 MG TAB PO (21:01)
[2018-04-05 05:38] LABS: BASO # 0.1 10^3/uL (0.0-0.2); BASO % 0.7 % (0.0-1.0); EOS # 0.2 10^3/uL (0.0-0.50); EOS % 3.4 % (0.0-3.0); IMMATURE GRANULOCYTE % 1.7 % (0-3.0); LYMPH # 1.3 10^3/uL (1.5-4.5); LYMPH % 18.8 % (24.0-44.0); MEAN CORPUSCULAR HEMOGLOBIN 27.4 pg (27.0-33.0); MEAN CORPUSCULAR HGB CONC 32.1 g/dl (32.0-36.5); MEAN CORPUSCULAR VOLUME 85.4 fl (80.0-96.0); MONO # 0.5 10^3/uL (0.0-0.8); MONO % 7.6 % (0.0-5.0); NEUTROPHILS # 4.7 10^3/uL (1.8-7.7); NEUTROPHILS % 67.8 % (36.0-66.0); PLATELET COUNT, AUTOMATED 331 10^3/uL (150-450); RED BLOOD COUNT 3.28 10^6/uL (4.30-6.10); RED CELL DISTRIBUTION WIDTH 15.1 % (11.5-14.5)
[2018-04-05 05:50] LABS: ANION GAP 5 MEQ/L (8-16); BLOOD UREA NITROGEN 36 MG/DL (7-18); C REACTIVE PROTEIN QUANTITATIV 2.53 MG/DL (0.00-0.30); CALCIUM LEVEL 8.3 MG/DL (8.8-10.2); CARBON DIOXIDE LEVEL 27 MEQ/L (21-32); CHLORIDE LEVEL 111 MEQ/L (98-107); GLOMERULAR FILTRATION RATE 33.6 (>49); GLUCOSE, FASTING 104 MG/DL (70-100); POTASSIUM SERUM 4.3 MEQ/L (3.5-5.1); SODIUM LEVEL 143 MEQ/L (136-145)
[2018-04-05] MEDS: HumaLOG INSULIN (NovoLOG) PER UNIT SC ×4 (07:25→20:26)
[2018-04-05] MEDS: LEVEMIR (INSULIN DETEMIR) 1 UNITS/0.01ML SC (08:33)
[2018-04-05] MEDS: METAXALONE 800 MG TABLET PO ×3 (08:33→20:33)
[2018-04-05] MEDS: VITAMIN D 1,000 INTERNATIONAL UNITS TABLET PO (08:33)
[2018-04-05] MEDS: ENOXAPARIN 100MG/1ML SYRINGE (J1650) SC ×2 (08:33→20:34)
[2018-04-05] MEDS: PANTOPRAZOLE 40MG TAB (PROTONIX) PO (08:33)
[2018-04-05] MEDS: SENOKOT S TAB PO ×2 (08:34→20:35)
[2018-04-05] MEDS: METOPROLOL TART 12.5 MG PER 1/2 TAB PO ×2 (08:34→20:34)
[2018-04-05] MEDS: FEBUXOSTAT 40 MG TABLET (ULORIC) PO (08:34)
[2018-04-05] MEDS: ACETAMINOPHEN 500 MG TAB PO ×2 (08:37→20:37)
[2018-04-05 12:09] LABS: BEDSIDE GLUCOSE 215 MG/DL (80-115)
[2018-04-05] MEDS: DOXYCYCLINE HYCLATE 100 MG in D5W MINI-BAG PLUS 100 ML IV ×2 (12:46→23:34)
[2018-04-05 16:54] LABS: BEDSIDE GLUCOSE 77 MG/DL (80-115)
[2018-04-05] MEDS: FLUDROCORTISONE ACETATE 0.1 MG TAB PO (20:34)
[2018-04-05] MEDS: TAMSULOSIN 0.4 MG CAP PO (20:34)
[2018-04-05] MEDS: AMITRIPTYLINE 25 MG TAB PO (20:34)
[2018-04-05 20:38] LABS: BEDSIDE GLUCOSE 190 MG/DL (80-115)
[2018-04-06 06:20] LABS: BASO % 0.5 % (0.0-1.0); EOS # 0.2 10^3/uL (0.0-0.50); EOS % 2.9 % (0.0-3.0); HEMATOCRIT 28.8 % (42.0-52.0); IMMATURE GRANULOCYTE % 2.3 % (0-3.0); LYMPH # 1.4 10^3/uL (1.5-4.5); LYMPH % 18.6 % (24.0-44.0); MEAN CORPUSCULAR HEMOGLOBIN 27.3 pg (27.0-33.0); MEAN CORPUSCULAR HGB CONC 31.3 g/dl (32.0-36.5); MEAN CORPUSCULAR VOLUME 87.3 fl (80.0-96.0); MONO # 0.6 10^3/uL (0.0-0.8); MONO % 7.9 % (0.0-5.0); NEUTROPHILS % 67.8 % (36.0-66.0); PLATELET COUNT, AUTOMATED 317 10^3/uL (150-450); RED CELL DISTRIBUTION WIDTH 15.2 % (11.5-14.5); WHITE BLOOD COUNT 7.3 10^3/uL (4.0-10.0)
[2018-04-06 06:58] LABS: ANION GAP 7 MEQ/L (8-16); BLOOD UREA NITROGEN 35 MG/DL (7-18); C REACTIVE PROTEIN QUANTITATIV 1.59 MG/DL (0.00-0.30); CALCIUM LEVEL 8.5 MG/DL (8.8-10.2); CARBON DIOXIDE LEVEL 25 MEQ/L (21-32); CHLORIDE LEVEL 110 MEQ/L (98-107); CREATININE FOR GFR 2.04 MG/DL (0.70-1.30); GLOMERULAR FILTRATION RATE 34.7 (>49); GLUCOSE, FASTING 101 MG/DL (70-100); POTASSIUM SERUM 3.6 MEQ/L (3.5-5.1); SODIUM LEVEL 142 MEQ/L (136-145)
[2018-04-06] MEDS: HumaLOG INSULIN (NovoLOG) PER UNIT SC ×4 (07:30→21:00)
[2018-04-06] MEDS: VITAMIN D 1,000 INTERNATIONAL UNITS TABLET PO (08:23)
[2018-04-06] MEDS: FEBUXOSTAT 40 MG TABLET (ULORIC) PO (08:23)
[2018-04-06] MEDS: METAXALONE 800 MG TABLET PO ×3 (08:23→21:02)
[2018-04-06] MEDS: METOPROLOL TART 12.5 MG PER 1/2 TAB PO ×2 (08:23→21:02)
[2018-04-06] MEDS: PANTOPRAZOLE 40MG TAB (PROTONIX) PO (08:23)
[2018-04-06] MEDS: FERROUS GLUCONATE 324 MG TAB PO (08:23)
[2018-04-06] MEDS: ENOXAPARIN 100MG/1ML SYRINGE (J1650) SC ×2 (08:24→21:01)
[2018-04-06] MEDS: LEVEMIR (INSULIN DETEMIR) 1 UNITS/0.01ML SC (08:24)
[2018-04-06] MEDS: SENOKOT S TAB PO ×3 (08:24→21:01)
[2018-04-06] MEDS: DOXYCYCLINE HYCLATE 100 MG in D5W MINI-BAG PLUS 100 ML IV ×2 (11:08→22:20)
[2018-04-06] MEDS: ACETAMINOPHEN 500 MG TAB PO (11:09)
[2018-04-06 11:39] LABS: BEDSIDE GLUCOSE 177 MG/DL (80-115)
[2018-04-06 16:56] LABS: BEDSIDE GLUCOSE 129 MG/DL (80-115)
[2018-04-06 20:25] LABS: BEDSIDE GLUCOSE 109 MG/DL (80-115)
[2018-04-06] MEDS: TAMSULOSIN 0.4 MG CAP PO (21:02)
[2018-04-06] MEDS: FLUDROCORTISONE ACETATE 0.1 MG TAB PO (21:02)
[2018-04-06] MEDS: AMITRIPTYLINE 25 MG TAB PO (21:02)
[2018-04-07 06:01] LABS: BASO # 0.1 10^3/uL (0.0-0.2); BASO % 0.6 % (0.0-1.0); EOS # 0.2 10^3/uL (0.0-0.50); EOS % 2.9 % (0.0-3.0); HEMATOCRIT 27.2 % (42.0-52.0); HEMOGLOBIN 8.8 g/dl (13.5-17.5); IMMATURE GRANULOCYTE % 2.1 % (0-3.0); LYMPH # 1.5 10^3/uL (1.5-4.5); LYMPH % 18.4 % (24.0-44.0); MEAN CORPUSCULAR HEMOGLOBIN 27.7 pg (27.0-33.0); MEAN CORPUSCULAR HGB CONC 32.4 g/dl (32.0-36.5); MEAN CORPUSCULAR VOLUME 85.5 fl (80.0-96.0); MONO # 0.5 10^3/uL (0.0-0.8); MONO % 6.8 % (0.0-5.0); NEUTROPHILS # 5.5 10^3/uL (1.8-7.7); NEUTROPHILS % 69.2 % (36.0-66.0); PLATELET COUNT, AUTOMATED 327 10^3/uL (150-450); RED BLOOD COUNT 3.18 10^6/uL (4.30-6.10); RED CELL DISTRIBUTION WIDTH 15.1 % (11.5-14.5); WHITE BLOOD COUNT 7.9 10^3/uL (4.0-10.0)
[2018-04-07 06:20] LABS: ANION GAP 9 MEQ/L (8-16); BLOOD UREA NITROGEN 33 MG/DL (7-18); C REACTIVE PROTEIN QUANTITATIV 1.06 MG/DL (0.00-0.30); CALCIUM LEVEL 8.4 MG/DL (8.8-10.2); CARBON DIOXIDE LEVEL 24 MEQ/L (21-32); CHLORIDE LEVEL 112 MEQ/L (98-107); CREATININE FOR GFR 1.95 MG/DL (0.70-1.30); GLOMERULAR FILTRATION RATE 36.6 (>49); GLUCOSE, FASTING 90 MG/DL (70-100); POTASSIUM SERUM 3.5 MEQ/L (3.5-5.1); SODIUM LEVEL 145 MEQ/L (136-145)
[2018-04-07] MEDS: HumaLOG INSULIN (NovoLOG) PER UNIT SC ×4 (07:38→20:39)
[2018-04-07] MEDS: PANTOPRAZOLE 40MG TAB (PROTONIX) PO (08:32)
[2018-04-07] MEDS: METAXALONE 800 MG TABLET PO ×3 (08:32→20:46)
[2018-04-07] MEDS: FEBUXOSTAT 40 MG TABLET (ULORIC) PO (08:32)
[2018-04-07] MEDS: METOPROLOL TART 12.5 MG PER 1/2 TAB PO (08:32)
[2018-04-07] MEDS: VITAMIN D 1,000 INTERNATIONAL UNITS TABLET PO (08:32)
[2018-04-07] MEDS: ENOXAPARIN 100MG/1ML SYRINGE (J1650) SC ×2 (08:33→20:46)
[2018-04-07] MEDS: LEVEMIR (INSULIN DETEMIR) 1 UNITS/0.01ML SC (08:33)
[2018-04-07] MEDS: SENOKOT S TAB PO ×2 (08:33→19:45)
[2018-04-07 11:35] LABS: BEDSIDE GLUCOSE 182 MG/DL (80-115)
[2018-04-07] MEDS: DOXYCYCLINE HYCLATE 100 MG in D5W MINI-BAG PLUS 100 ML IV ×2 (12:08→23:05)
[2018-04-07 16:38] LABS: BEDSIDE GLUCOSE 134 MG/DL (80-115)
[2018-04-07] MEDS: FLUDROCORTISONE ACETATE 0.1 MG TAB PO (20:46)
[2018-04-07 20:47] LABS: BEDSIDE GLUCOSE 109 MG/DL (80-115)
[2018-04-07] MEDS: TAMSULOSIN 0.4 MG CAP PO (20:47)
[2018-04-07] MEDS: METOPROLOL TART 25 MG TABLET PO (20:47)
[2018-04-07] MEDS: AMITRIPTYLINE 25 MG TAB PO (20:47)
[2018-04-08] MEDS: amLODIPine 5 MG TAB PO (05:52)
[2018-04-08 06:10] LABS: BASO # 0.1 10^3/uL (0.0-0.2); BASO % 0.7 % (0.0-1.0); EOS # 0.2 10^3/uL (0.0-0.50); EOS % 2.2 % (0.0-3.0); HEMATOCRIT 28.4 % (42.0-52.0); IMMATURE GRANULOCYTE % 1.5 % (0-3.0); LYMPH # 1.6 10^3/uL (1.5-4.5); LYMPH % 17.2 % (24.0-44.0); MEAN CORPUSCULAR HEMOGLOBIN 27.4 pg (27.0-33.0); MEAN CORPUSCULAR HGB CONC 31.7 g/dl (32.0-36.5); MEAN CORPUSCULAR VOLUME 86.6 fl (80.0-96.0); MONO # 0.6 10^3/uL (0.0-0.8); MONO % 6.9 % (0.0-5.0); NEUTROPHILS # 6.6 10^3/uL (1.8-7.7); NEUTROPHILS % 71.5 % (36.0-66.0); PLATELET COUNT, AUTOMATED 326 10^3/uL (150-450); RED BLOOD COUNT 3.28 10^6/uL (4.30-6.10); RED CELL DISTRIBUTION WIDTH 15.4 % (11.5-14.5); WHITE BLOOD COUNT 9.2 10^3/uL (4.0-10.0)
[2018-04-08 06:32] LABS: ANION GAP 11 MEQ/L (8-16); BLOOD UREA NITROGEN 33 MG/DL (7-18); C REACTIVE PROTEIN QUANTITATIV 0.79 MG/DL (0.00-0.30); CALCIUM LEVEL 8.6 MG/DL (8.8-10.2); CARBON DIOXIDE LEVEL 22 MEQ/L (21-32); CHLORIDE LEVEL 111 MEQ/L (98-107); CREATININE FOR GFR 1.98 MG/DL (0.70-1.30); GLUCOSE, FASTING 79 MG/DL (70-100); POTASSIUM SERUM 3.8 MEQ/L (3.5-5.1); SODIUM LEVEL 144 MEQ/L (136-145)
[2018-04-08] MEDS: HumaLOG INSULIN (NovoLOG) PER UNIT SC ×4 (08:00→20:12)
[2018-04-08] MEDS: PANTOPRAZOLE 40MG TAB (PROTONIX) PO (08:29)
[2018-04-08] MEDS: FEBUXOSTAT 40 MG TABLET (ULORIC) PO (08:29)
[2018-04-08] MEDS: FERROUS GLUCONATE 324 MG TAB PO (08:29)
[2018-04-08] MEDS: ENOXAPARIN 100MG/1ML SYRINGE (J1650) SC ×2 (08:29→20:40)
[2018-04-08] MEDS: METAXALONE 800 MG TABLET PO ×3 (08:29→20:38)
[2018-04-08] MEDS: VITAMIN D 1,000 INTERNATIONAL UNITS TABLET PO (08:29)
[2018-04-08] MEDS: METOPROLOL TART 25 MG TABLET PO ×2 (08:30→20:39)
[2018-04-08] MEDS: SENOKOT S TAB PO ×2 (08:30→20:12)
[2018-04-08] MEDS: LEVEMIR (INSULIN DETEMIR) 1 UNITS/0.01ML SC (08:31)
[2018-04-08] MEDS: DOXYCYCLINE HYCLATE 100 MG in D5W MINI-BAG PLUS 100 ML IV ×2 (11:09→22:34)
[2018-04-08 11:36] LABS: BEDSIDE GLUCOSE 123 MG/DL (80-115)
[2018-04-08 16:42] LABS: BEDSIDE GLUCOSE 156 MG/DL (80-115)
[2018-04-08 20:04] LABS: BEDSIDE GLUCOSE 177 MG/DL (80-115)
[2018-04-08] MEDS: TAMSULOSIN 0.4 MG CAP PO (20:38)
[2018-04-08] MEDS: FLUDROCORTISONE ACETATE 0.1 MG TAB PO (20:38)
[2018-04-08] MEDS: AMITRIPTYLINE 25 MG TAB PO (20:39)
[2018-04-08] MEDS: ACETAMINOPHEN 500 MG TAB PO (20:40)
[2018-04-09 06:42] LABS: BASO # 0.1 10^3/uL (0.0-0.2); BASO % 1.1 % (0.0-1.0); EOS # 0.2 10^3/uL (0.0-0.50); EOS % 2.6 % (0.0-3.0); HEMATOCRIT 28.3 % (42.0-52.0); HEMOGLOBIN 9.1 g/dl (13.5-17.5); IMMATURE GRANULOCYTE % 1.2 % (0-3.0); LYMPH # 1.6 10^3/uL (1.5-4.5); LYMPH % 21.1 % (24.0-44.0); MEAN CORPUSCULAR HEMOGLOBIN 27.7 pg (27.0-33.0); MEAN CORPUSCULAR HGB CONC 32.2 g/dl (32.0-36.5); MONO # 0.6 10^3/uL (0.0-0.8); MONO % 7.6 % (0.0-5.0); NEUTROPHILS # 4.9 10^3/uL (1.8-7.7); NEUTROPHILS % 66.4 % (36.0-66.0); PLATELET COUNT, AUTOMATED 311 10^3/uL (150-450); RED BLOOD COUNT 3.29 10^6/uL (4.30-6.10); RED CELL DISTRIBUTION WIDTH 15.4 % (11.5-14.5); WHITE BLOOD COUNT 7.3 10^3/uL (4.0-10.0)
[2018-04-09 06:54] LABS: ALBUMIN 2.9 GM/DL (3.2-5.2); ANION GAP 10 MEQ/L (8-16); BLOOD UREA NITROGEN 35 MG/DL (7-18); CALCIUM LEVEL 8.7 MG/DL (8.8-10.2); CARBON DIOXIDE LEVEL 22 MEQ/L (21-32); CHLORIDE LEVEL 111 MEQ/L (98-107); CREATININE FOR GFR 2.09 MG/DL (0.70-1.30); GLOMERULAR FILTRATION RATE 33.8 (>49); GLUCOSE, FASTING 118 MG/DL (70-100); PHOSPHORUS LEVEL 3.8 MG/DL (2.5-4.9); POTASSIUM SERUM 3.7 MEQ/L (3.5-5.1); SODIUM LEVEL 143 MEQ/L (136-145)
[2018-04-09] MEDS: LEVEMIR (INSULIN DETEMIR) 1 UNITS/0.01ML SC ×2 (07:31→09:30)
[2018-04-09] MEDS: HumaLOG INSULIN (NovoLOG) PER UNIT SC ×5 (07:31→21:00)
[2018-04-09] MEDS: SENOKOT S TAB PO ×2 (08:01→21:00)
[2018-04-09] MEDS: METOPROLOL TART 25 MG TABLET PO ×2 (08:02→21:52)
[2018-04-09] MEDS: PANTOPRAZOLE 40MG TAB (PROTONIX) PO (08:02)
[2018-04-09] MEDS: ENOXAPARIN 100MG/1ML SYRINGE (J1650) SC ×2 (08:02→21:53)
[2018-04-09] MEDS: FEBUXOSTAT 40 MG TABLET (ULORIC) PO (08:02)
[2018-04-09] MEDS: VITAMIN D 1,000 INTERNATIONAL UNITS TABLET PO (08:02)
[2018-04-09] MEDS: METAXALONE 800 MG TABLET PO ×3 (08:02→21:52)
[2018-04-09 11:29] LABS: BEDSIDE GLUCOSE 173 MG/DL (80-115)
[2018-04-09] MEDS: DOXYCYCLINE HYCLATE 100 MG in D5W MINI-BAG PLUS 100 ML IV ×2 (12:22→22:35)
[2018-04-09 16:57] LABS: BEDSIDE GLUCOSE 154 MG/DL (80-115)
[2018-04-09 20:54] LABS: BEDSIDE GLUCOSE 118 MG/DL (80-115)
[2018-04-09] MEDS: AMITRIPTYLINE 25 MG TAB PO (21:52)
[2018-04-09] MEDS: FLUDROCORTISONE ACETATE 0.1 MG TAB PO (21:52)
[2018-04-09] MEDS: TAMSULOSIN 0.4 MG CAP PO (21:52)
[2018-04-09] MEDS: ACETAMINOPHEN 500 MG TAB PO (21:53)
[2018-04-10 06:20] LABS: BEDSIDE GLUCOSE 93 MG/DL (80-115)
[2018-04-10] MEDS: HumaLOG INSULIN (NovoLOG) PER UNIT SC ×4 (07:30→21:00)
[2018-04-10] MEDS: ENOXAPARIN 100MG/1ML SYRINGE (J1650) SC ×2 (07:57→21:43)
[2018-04-10] MEDS: FEBUXOSTAT 40 MG TABLET (ULORIC) PO (08:02)
[2018-04-10] MEDS: LEVEMIR (INSULIN DETEMIR) 1 UNITS/0.01ML SC (08:02)
[2018-04-10] MEDS: METOPROLOL TART 25 MG TABLET PO ×2 (08:03→21:41)
[2018-04-10] MEDS: PANTOPRAZOLE 40MG TAB (PROTONIX) PO (08:03)
[2018-04-10] MEDS: VITAMIN D 1,000 INTERNATIONAL UNITS TABLET PO (08:03)
[2018-04-10] MEDS: SENOKOT S TAB PO ×2 (08:03→21:00)
[2018-04-10] MEDS: FERROUS GLUCONATE 324 MG TAB PO (08:03)
[2018-04-10] MEDS: METAXALONE 800 MG TABLET PO ×3 (08:03→21:40)
[2018-04-10 11:52] LABS: BEDSIDE GLUCOSE 224 MG/DL (80-115)
[2018-04-10] MEDS: DOXYCYCLINE HYCLATE 100 MG in D5W MINI-BAG PLUS 100 ML IV ×2 (11:52→23:01)
[2018-04-10] MEDS ORDERED: ONDANSETRON 4MG/2ML VIAL (J2405) As Ordered (16:29)
[2018-04-10] MEDS ORDERED: KETOROLAC 60 MG/2 ML VIAL (J1885) As Ordered (16:29)
[2018-04-10] MEDS ORDERED: MIDAZOLAM INJ 2 MG/2 ML VIAL (J2250) As Ordered (16:29)
[2018-04-10] MEDS ORDERED: fentaNYL 100 MCG/2 ML INJECTION (J3010) As Ordered (16:29)
[2018-04-10] MEDS ORDERED: PROPOFOL 200 MG/20 ML VIAL As Ordered ×2 (16:29→16:30)
[2018-04-10] MEDS ORDERED: LIDOCAINE 2% INJ 100 MG/5 ML SDV (FOR ANES.) As Ordered (16:29)
[2018-04-10] MEDS ORDERED: dexameTHASONE 4 MG/ML 1ML VIAL (J1100) As Ordered (16:29)
[2018-04-10] MEDS ORDERED: NORCO, ANEXSIA 5/325MG TABLET (HYDROcodone/ACETAMINOPHEN) PO (17:15)
[2018-04-10] MEDS ORDERED: fentaNYL 100 MCG/2 ML INJECTION (J3010) IV (17:15)
[2018-04-10] MEDS: LR 1,000 ML IV (17:15)
[2018-04-10] MEDS ORDERED: ONDANSETRON 4MG/2ML VIAL (J2405) IV (17:15)
[2018-04-10 17:51] LABS: BEDSIDE GLUCOSE 69 MG/DL (80-115)
[2018-04-10] MEDS: TAMSULOSIN 0.4 MG CAP PO (21:40)
[2018-04-10] MEDS: AMITRIPTYLINE 25 MG TAB PO (21:40)
[2018-04-10] MEDS: FLUDROCORTISONE ACETATE 0.1 MG TAB PO (21:40)
[2018-04-11 04:13] LABS: BEDSIDE GLUCOSE 155 MG/DL (80-115)
[2018-04-11 06:10] LABS: HEMATOCRIT 27.8 % (42.0-52.0); MEAN CORPUSCULAR HEMOGLOBIN 27.8 pg (27.0-33.0); MEAN CORPUSCULAR HGB CONC 32.4 g/dl (32.0-36.5); MEAN CORPUSCULAR VOLUME 85.8 fl (80.0-96.0); PLATELET COUNT, AUTOMATED 246 10^3/uL (150-450); RED BLOOD COUNT 3.24 10^6/uL (4.30-6.10); RED CELL DISTRIBUTION WIDTH 15.3 % (11.5-14.5); WHITE BLOOD COUNT 7.8 10^3/uL (4.0-10.0)
[2018-04-11 06:20] LABS: ANION GAP 10 MEQ/L (8-16); BLOOD UREA NITROGEN 35 MG/DL (7-18); CALCIUM LEVEL 8.6 MG/DL (8.8-10.2); CARBON DIOXIDE LEVEL 22 MEQ/L (21-32); CHLORIDE LEVEL 112 MEQ/L (98-107); CREATININE FOR GFR 1.81 MG/DL (0.70-1.30); GLOMERULAR FILTRATION RATE 39.9 (>49); GLUCOSE, FASTING 99 MG/DL (70-100); POTASSIUM SERUM 3.6 MEQ/L (3.5-5.1); SODIUM LEVEL 144 MEQ/L (136-145)
[2018-04-11] MEDS: HumaLOG INSULIN (NovoLOG) PER UNIT SC ×4 (07:30→20:48)
[2018-04-11] MEDS: ENOXAPARIN 100MG/1ML SYRINGE (J1650) SC ×2 (08:42→23:13)
[2018-04-11] MEDS: METAXALONE 800 MG TABLET PO ×3 (08:43→22:22)
[2018-04-11] MEDS: FEBUXOSTAT 40 MG TABLET (ULORIC) PO (08:43)
[2018-04-11] MEDS: SENOKOT S TAB PO ×2 (08:43→20:34)
[2018-04-11] MEDS: VITAMIN D 1,000 INTERNATIONAL UNITS TABLET PO (08:43)
[2018-04-11] MEDS: PANTOPRAZOLE 40MG TAB (PROTONIX) PO (08:44)
[2018-04-11] MEDS: METOPROLOL TART 25 MG TABLET PO ×2 (08:44→22:23)
[2018-04-11] MEDS: LEVEMIR (INSULIN DETEMIR) 1 UNITS/0.01ML SC ×2 (08:44→23:04)
[2018-04-11 11:29] LABS: BEDSIDE GLUCOSE 214 MG/DL (80-115)
[2018-04-11] MEDS: DOXYCYCLINE HYCLATE 100 MG in D5W MINI-BAG PLUS 100 ML IV ×2 (11:54→22:23)
[2018-04-11 16:34] LABS: BEDSIDE GLUCOSE 158 MG/DL (80-115)
[2018-04-11 20:49] LABS: BEDSIDE GLUCOSE 147 MG/DL (80-115)
[2018-04-11] MEDS: FLUDROCORTISONE ACETATE 0.1 MG TAB PO (22:22)
[2018-04-11] MEDS: TAMSULOSIN 0.4 MG CAP PO (22:23)
[2018-04-11] MEDS: AMITRIPTYLINE 25 MG TAB PO (22:23)
[2018-04-12 06:24] LABS: MEAN CORPUSCULAR HEMOGLOBIN 27.3 pg (27.0-33.0); MEAN CORPUSCULAR HGB CONC 32.1 g/dl (32.0-36.5); MEAN CORPUSCULAR VOLUME 84.8 fl (80.0-96.0); PLATELET COUNT, AUTOMATED 275 10^3/uL (150-450); RED CELL DISTRIBUTION WIDTH 15.5 % (11.5-14.5); WHITE BLOOD COUNT 7.8 10^3/uL (4.0-10.0)
[2018-04-12 06:47] LABS: ALBUMIN 2.7 GM/DL (3.2-5.2); ANION GAP 12 MEQ/L (8-16); BLOOD UREA NITROGEN 40 MG/DL (7-18); CALCIUM LEVEL 8.8 MG/DL (8.8-10.2); CARBON DIOXIDE LEVEL 19 MEQ/L (21-32); CHLORIDE LEVEL 112 MEQ/L (98-107); CREATININE FOR GFR 1.93 MG/DL (0.70-1.30); GLUCOSE, FASTING 81 MG/DL (70-100); PHOSPHORUS LEVEL 3.6 MG/DL (2.5-4.9); POTASSIUM SERUM 3.6 MEQ/L (3.5-5.1); SODIUM LEVEL 143 MEQ/L (136-145)
[2018-04-12] MEDS: HumaLOG INSULIN (NovoLOG) PER UNIT SC ×4 (07:30→20:26)
[2018-04-12] MEDS: SENOKOT S TAB PO ×3 (09:00→19:56)
[2018-04-12] MEDS: METOPROLOL TART 25 MG TABLET PO ×2 (09:04→21:08)
[2018-04-12] MEDS: ENOXAPARIN 100MG/1ML SYRINGE (J1650) SC ×2 (09:04→21:08)
[2018-04-12] MEDS: PANTOPRAZOLE 40MG TAB (PROTONIX) PO (09:05)
[2018-04-12] MEDS: METAXALONE 800 MG TABLET PO ×3 (09:05→21:07)
[2018-04-12] MEDS: FERROUS GLUCONATE 324 MG TAB PO (09:05)
[2018-04-12] MEDS: VITAMIN D 1,000 INTERNATIONAL UNITS TABLET PO (09:05)
[2018-04-12] MEDS: FEBUXOSTAT 40 MG TABLET (ULORIC) PO (09:07)
[2018-04-12] MEDS: DOXYCYCLINE HYCLATE 100 MG in D5W MINI-BAG PLUS 100 ML IV ×2 (10:48→23:47)
[2018-04-12 12:33] LABS: BEDSIDE GLUCOSE 162 MG/DL (80-115)
[2018-04-12 16:30] LABS: BEDSIDE GLUCOSE 163 MG/DL (80-115)
[2018-04-12 20:20] LABS: BEDSIDE GLUCOSE 141 MG/DL (80-115)
[2018-04-12] MEDS: TAMSULOSIN 0.4 MG CAP PO (21:07)
[2018-04-12] MEDS: FLUDROCORTISONE ACETATE 0.1 MG TAB PO (21:07)
[2018-04-12] MEDS: AMITRIPTYLINE 25 MG TAB PO (21:07)
[2018-04-12] MEDS: LEVEMIR (INSULIN DETEMIR) 1 UNITS/0.01ML SC (21:07)
[2018-04-13 06:02] LABS: HEMOGLOBIN 8.3 g/dl (13.5-17.5); MEAN CORPUSCULAR HEMOGLOBIN 27.7 pg (27.0-33.0); MEAN CORPUSCULAR HGB CONC 31.9 g/dl (32.0-36.5); MEAN CORPUSCULAR VOLUME 86.7 fl (80.0-96.0); PLATELET COUNT, AUTOMATED 245 10^3/uL (150-450); RED CELL DISTRIBUTION WIDTH 15.5 % (11.5-14.5); WHITE BLOOD COUNT 7.7 10^3/uL (4.0-10.0)
[2018-04-13 06:16] LABS: ANION GAP 9 MEQ/L (8-16); BLOOD UREA NITROGEN 42 MG/DL (7-18); CALCIUM LEVEL 8.3 MG/DL (8.8-10.2); CARBON DIOXIDE LEVEL 22 MEQ/L (21-32); CHLORIDE LEVEL 113 MEQ/L (98-107); CREATININE FOR GFR 2.01 MG/DL (0.70-1.30); GLOMERULAR FILTRATION RATE 35.3 (>49); GLUCOSE, FASTING 74 MG/DL (70-100); POTASSIUM SERUM 3.7 MEQ/L (3.5-5.1); SODIUM LEVEL 144 MEQ/L (136-145)
[2018-04-13] MEDS: HumaLOG INSULIN (NovoLOG) PER UNIT SC ×4 (07:41→21:32)
[2018-04-13] MEDS: FEBUXOSTAT 40 MG TABLET (ULORIC) PO (09:23)
[2018-04-13] MEDS: PANTOPRAZOLE 40MG TAB (PROTONIX) PO (09:23)
[2018-04-13] MEDS: VITAMIN D 1,000 INTERNATIONAL UNITS TABLET PO (09:23)
[2018-04-13] MEDS: SENOKOT S TAB PO ×2 (09:23→21:42)
[2018-04-13] MEDS: METAXALONE 800 MG TABLET PO ×3 (09:23→21:41)
[2018-04-13] MEDS: METOPROLOL TART 50 MG TAB PO ×2 (09:24→21:42)
[2018-04-13] MEDS: ENOXAPARIN 100MG/1ML SYRINGE (J1650) SC ×2 (09:25→21:41)
[2018-04-13] MEDS: DOXYCYCLINE HYCLATE 100 MG in D5W MINI-BAG PLUS 100 ML IV ×2 (10:33→21:39)
[2018-04-13 11:32] LABS: BEDSIDE GLUCOSE 153 MG/DL (80-115)
[2018-04-13 16:33] LABS: BEDSIDE GLUCOSE 127 MG/DL (80-115)
[2018-04-13] MEDS: LEVEMIR (INSULIN DETEMIR) 1 UNITS/0.01ML SC (21:40)
[2018-04-13] MEDS: AMITRIPTYLINE 25 MG TAB PO (21:41)
[2018-04-13] MEDS: FLUDROCORTISONE ACETATE 0.1 MG TAB PO (21:41)
[2018-04-13] MEDS: TAMSULOSIN 0.4 MG CAP PO (21:41)
[2018-04-14 07:01] LABS: BASO # 0.1 10^3/uL (0.0-0.2); BASO % 0.7 % (0.0-1.0); EOS # 0.2 10^3/uL (0.0-0.50); EOS % 2.4 % (0.0-3.0); HEMATOCRIT 25.5 % (42.0-52.0); HEMOGLOBIN 8.2 g/dl (13.5-17.5); IMMATURE GRANULOCYTE % 0.5 % (0-3.0); LYMPH # 1.6 10^3/uL (1.5-4.5); LYMPH % 18.8 % (24.0-44.0); MEAN CORPUSCULAR HEMOGLOBIN 27.5 pg (27.0-33.0); MEAN CORPUSCULAR HGB CONC 32.2 g/dl (32.0-36.5); MEAN CORPUSCULAR VOLUME 85.6 fl (80.0-96.0); MONO # 0.6 10^3/uL (0.0-0.8); MONO % 7.6 % (0.0-5.0); NEUTROPHILS # 5.8 10^3/uL (1.8-7.7); PLATELET COUNT, AUTOMATED 255 10^3/uL (150-450); RED BLOOD COUNT 2.98 10^6/uL (4.30-6.10); RED CELL DISTRIBUTION WIDTH 15.9 % (11.5-14.5); WHITE BLOOD COUNT 8.3 10^3/uL (4.0-10.0)
[2018-04-14 07:19] LABS: ANION GAP 7 MEQ/L (8-16); BLOOD UREA NITROGEN 41 MG/DL (7-18); CALCIUM LEVEL 8.4 MG/DL (8.8-10.2); CARBON DIOXIDE LEVEL 25 MEQ/L (21-32); CHLORIDE LEVEL 111 MEQ/L (98-107); CREATININE FOR GFR 1.98 MG/DL (0.70-1.30); GLUCOSE, FASTING 59 MG/DL (70-100); POTASSIUM SERUM 3.7 MEQ/L (3.5-5.1); SODIUM LEVEL 143 MEQ/L (136-145)
[2018-04-14] MEDS: HumaLOG INSULIN (NovoLOG) PER UNIT SC ×4 (07:55→20:41)
[2018-04-14 08:58] LABS: BEDSIDE GLUCOSE 133 MG/DL (80-115)
[2018-04-14] MEDS: PANTOPRAZOLE 40MG TAB (PROTONIX) PO (09:04)
[2018-04-14] MEDS: FEBUXOSTAT 40 MG TABLET (ULORIC) PO (09:04)
[2018-04-14] MEDS: VITAMIN D 1,000 INTERNATIONAL UNITS TABLET PO (09:04)
[2018-04-14] MEDS: METAXALONE 800 MG TABLET PO ×3 (09:04→21:52)
[2018-04-14] MEDS: FERROUS GLUCONATE 324 MG TAB PO (09:04)
[2018-04-14] MEDS: ENOXAPARIN 100MG/1ML SYRINGE (J1650) SC ×2 (09:05→21:54)
[2018-04-14] MEDS: METOPROLOL TART 50 MG TAB PO ×2 (09:05→21:53)
[2018-04-14] MEDS: SENOKOT S TAB PO ×2 (09:05→19:29)
[2018-04-14 09:22] LABS: BEDSIDE GLUCOSE 141 MG/DL (80-115)
[2018-04-14 11:49] LABS: BEDSIDE GLUCOSE 137 MG/DL (80-115)
[2018-04-14] MEDS: DOXYCYCLINE HYCLATE 100 MG in D5W MINI-BAG PLUS 100 ML IV ×2 (12:03→21:54)
[2018-04-14 16:43] LABS: BEDSIDE GLUCOSE 200 MG/DL (80-115)
[2018-04-14 17:41] LABS: BEDSIDE GLUCOSE 130 MG/DL (80-115)
[2018-04-14 19:52] LABS: BEDSIDE GLUCOSE 149 MG/DL (80-115)
[2018-04-14] MEDS: AMITRIPTYLINE 25 MG TAB PO (21:52)
[2018-04-14] MEDS: TAMSULOSIN 0.4 MG CAP PO (21:52)
[2018-04-14] MEDS: LEVEMIR (INSULIN DETEMIR) 1 UNITS/0.01ML SC (21:53)
[2018-04-14] MEDS: FLUDROCORTISONE ACETATE 0.1 MG TAB PO (21:54)
[2018-04-15 01:36] LABS: BEDSIDE GLUCOSE 123 MG/DL (80-115)
[2018-04-15 06:08] LABS: BEDSIDE GLUCOSE 56 MG/DL (80-115)
[2018-04-15 06:31] LABS: BEDSIDE GLUCOSE 76 MG/DL (80-115)
[2018-04-15] MEDS: HumaLOG INSULIN (NovoLOG) PER UNIT SC ×4 (08:25→21:00)
[2018-04-15] MEDS: SENOKOT S TAB PO ×2 (08:26→21:00)
[2018-04-15] MEDS: ENOXAPARIN 100MG/1ML SYRINGE (J1650) SC ×2 (08:26→21:40)
[2018-04-15] MEDS: VITAMIN D 1,000 INTERNATIONAL UNITS TABLET PO (08:27)
[2018-04-15] MEDS: METAXALONE 800 MG TABLET PO ×3 (08:27→21:39)
[2018-04-15] MEDS: PANTOPRAZOLE 40MG TAB (PROTONIX) PO (08:27)
[2018-04-15] MEDS: FEBUXOSTAT 40 MG TABLET (ULORIC) PO (08:27)
[2018-04-15] MEDS: METOPROLOL TART 50 MG TAB PO ×2 (08:27→21:40)
[2018-04-15 11:39] LABS: BEDSIDE GLUCOSE 141 MG/DL (80-115)
[2018-04-15] MEDS: DOXYCYCLINE HYCLATE 100 MG in D5W MINI-BAG PLUS 100 ML IV (12:15)
[2018-04-15] MEDS: DOXYCYCLINE HYCLATE 100 MG TAB PO ×2 (14:20→21:40)
[2018-04-15 16:51] LABS: BEDSIDE GLUCOSE 164 MG/DL (80-115)
[2018-04-15 21:24] LABS: BEDSIDE GLUCOSE 206 MG/DL (80-115)
[2018-04-15] MEDS: AMITRIPTYLINE 25 MG TAB PO (21:39)
[2018-04-15] MEDS: TAMSULOSIN 0.4 MG CAP PO (21:40)
[2018-04-15] MEDS: FLUDROCORTISONE ACETATE 0.1 MG TAB PO (21:40)
[2018-04-15] MEDS: LEVEMIR (INSULIN DETEMIR) 1 UNITS/0.01ML SC (21:41)
[2018-04-16 06:08] LABS: BEDSIDE GLUCOSE 63 MG/DL (80-115)
[2018-04-16 06:29] LABS: BEDSIDE GLUCOSE 69 MG/DL (80-115)
[2018-04-16 07:06] LABS: BEDSIDE GLUCOSE 87 MG/DL (80-115)
[2018-04-16] MEDS: HumaLOG INSULIN (NovoLOG) PER UNIT SC (08:33)
[2018-04-16] MEDS: FEBUXOSTAT 40 MG TABLET (ULORIC) PO (08:39)
[2018-04-16] MEDS: ENOXAPARIN 100MG/1ML SYRINGE (J1650) SC (08:39)
[2018-04-16] MEDS: DOXYCYCLINE HYCLATE 100 MG TAB PO (08:39)
[2018-04-16] MEDS: FERROUS GLUCONATE 324 MG TAB PO (08:39)
[2018-04-16] MEDS: PANTOPRAZOLE 40MG TAB (PROTONIX) PO (08:39)
[2018-04-16] MEDS: VITAMIN D 1,000 INTERNATIONAL UNITS TABLET PO (08:39)
[2018-04-16] MEDS: METAXALONE 800 MG TABLET PO (08:39)
[2018-04-16] MEDS: SENOKOT S TAB PO (08:44)
[2018-04-16] MEDS: METOPROLOL TART 50 MG TAB PO (08:44)
== END 2018-04-16 11:36 | DRG 501 ==
LOC: M ED 10:57 → M ED INP 13:56 → M MSPAV 16:46
PROC: 0KBV0ZZ Excision of Right Foot Muscle, Open Approach (ICD-10-PCS; principal; 2018-04-10 16:46)
DX: T87.43 Infection of amputation stump, right lower extremity (principal); L03.115 Cellulitis of right lower limb; L02.611 Cutaneous abscess of right foot; I13.0 Hypertensive heart and chronic kidney disease with heart failure and stage 1 through stage 4 chronic kidney disease, or unspecified chronic kidney disease; M86.171 Other acute osteomyelitis, right ankle and foot; G61.0 Guillain-Barre syndrome; E11.621 Type 2 diabetes mellitus with foot ulcer; L97.511 Non-pressure chronic ulcer of other part of right foot limited to breakdown of skin; E11.69 Type 2 diabetes mellitus with other specified complication; M10.9 Gout, unspecified; D50.9 Iron deficiency anemia, unspecified; E11.40 Type 2 diabetes mellitus with diabetic neuropathy, unspecified; N18.3 Chronic kidney disease, stage 3 (moderate); I48.2 Chronic atrial fibrillation; I48.0 Paroxysmal atrial fibrillation; E78.5 Hyperlipidemia, unspecified; N40.0 Benign prostatic hyperplasia without lower urinary tract symptoms; Z79.899 Other long term (current) drug therapy; Z79.4 Long term (current) use of insulin; K59.00 Constipation, unspecified; I70.435 Atherosclerosis of autologous vein bypass graft(s) of the right leg with ulceration of other part of foot; Z86.718 Personal history of other venous thrombosis and embolism; Y83.5 Amputation of limb(s) as the cause of abnormal reaction of the patient, or of later complication, without mention of misadventure at the time of the procedure; B95.61 Methicillin susceptible Staphylococcus aureus infection as the cause of diseases classified elsewhere

== ENCOUNTER → 2018-04-21 | Outpatient (REF) ==
[2018-04-21 16:02] LABS: HEMATOCRIT 26.1 % (42.0-52.0); HEMOGLOBIN 8.1 g/dl (13.5-17.5); MEAN CORPUSCULAR HEMOGLOBIN 27.9 pg (27.0-33.0); PLATELET COUNT, AUTOMATED 247 10^3/uL (150-450); RED CELL DISTRIBUTION WIDTH 16.1 % (11.5-14.5); WHITE BLOOD COUNT 7.4 10^3/uL (4.0-10.0)
[2018-04-21 16:17] LABS: ANION GAP 9 MEQ/L (8-16); BLOOD UREA NITROGEN 37 MG/DL (7-18); CALCIUM LEVEL 8.1 MG/DL (8.8-10.2); CARBON DIOXIDE LEVEL 25 MEQ/L (21-32); CHLORIDE LEVEL 110 MEQ/L (98-107); CREATININE FOR GFR 2.23 MG/DL (0.70-1.30); GLOMERULAR FILTRATION RATE 31.4 (>49); GLUCOSE, FASTING 144 MG/DL (70-100); POTASSIUM SERUM 4.3 MEQ/L (3.5-5.1); SODIUM LEVEL 144 MEQ/L (136-145)
== END ==
DX: I10 Essential (primary) hypertension (principal); E11.9 Type 2 diabetes mellitus without complications

== ENCOUNTER → 2018-04-23 | Outpatient (REF) ==
[2018-04-23 13:59] LABS: HEMATOCRIT 29.5 % (42.0-52.0); MEAN CORPUSCULAR HEMOGLOBIN 27.6 pg (27.0-33.0); MEAN CORPUSCULAR HGB CONC 30.5 g/dl (32.0-36.5); MEAN CORPUSCULAR VOLUME 90.5 fl (80.0-96.0); PLATELET COUNT, AUTOMATED 248 10^3/uL (150-450); RED BLOOD COUNT 3.26 10^6/uL (4.30-6.10); RED CELL DISTRIBUTION WIDTH 16.2 % (11.5-14.5); WHITE BLOOD COUNT 6.7 10^3/uL (4.0-10.0)
[2018-04-23 14:27] LABS: IRON (FE) 76 UG/DL (65-175); PERCENT SATURATION 35.3 % (19.7-50.0); TOTAL IRON BINDING CAPACITY 215 UG/DL (250-450)
[2018-04-23 14:41] LABS: FOLATE 16.4 NG/ML (>5.4)
== END ==
DX: D64.9 Anemia, unspecified (principal)

== ENCOUNTER 2018-04-24 21:26 | Emergency (ER) | payer MEDICARE | END 2018-04-24 23:19 | disposition home or self-care (01) | LOC: M ED 23:19 | DX: S91.301A Unspecified open wound, right foot, initial encounter (principal); X58.XXXA Exposure to other specified factors, initial encounter; Y92.9 Unspecified place or not applicable; Y93.9 Activity, unspecified; Y99.9 Unspecified external cause status; E11.9 Type 2 diabetes mellitus without complications; I10 Essential (primary) hypertension; E78.5 Hyperlipidemia, unspecified; I48.91 Unspecified atrial fibrillation; Z86.73 Personal history of transient ischemic attack (TIA), and cerebral infarction without residual deficits; N18.3 Chronic kidney disease, stage 3 (moderate); M10.9 Gout, unspecified; N40.0 Benign prostatic hyperplasia without lower urinary tract symptoms; Z86.718 Personal history of other venous thrombosis and embolism; G61.0 Guillain-Barre syndrome; Z79.4 Long term (current) use of insulin; Z79.899 Other long term (current) drug therapy; Z88.1 Allergy status to other antibiotic agents | CPT/HCPCS: 99284 ==

== ENCOUNTER → 2018-04-28 | Outpatient (REF) ==
[2018-04-28 09:56] LABS: HEMATOCRIT 29.2 % (42.0-52.0); HEMOGLOBIN 9.1 g/dl (13.5-17.5); MEAN CORPUSCULAR HEMOGLOBIN 28.3 pg (27.0-33.0); MEAN CORPUSCULAR HGB CONC 31.2 g/dl (32.0-36.5); PLATELET COUNT, AUTOMATED 245 10^3/uL (150-450); RED BLOOD COUNT 3.21 10^6/uL (4.30-6.10); RED CELL DISTRIBUTION WIDTH 16.2 % (11.5-14.5); WHITE BLOOD COUNT 6.4 10^3/uL (4.0-10.0)
[2018-04-28 10:35] LABS: ANION GAP 12 MEQ/L (8-16); BLOOD UREA NITROGEN 37 MG/DL (7-18); CALCIUM LEVEL 8.7 MG/DL (8.8-10.2); CARBON DIOXIDE LEVEL 23 MEQ/L (21-32); CHLORIDE LEVEL 110 MEQ/L (98-107); CREATININE FOR GFR 2.12 MG/DL (0.70-1.30); GLOMERULAR FILTRATION RATE 33.2 (>49); GLUCOSE, FASTING 106 MG/DL (70-100); POTASSIUM SERUM 4.2 MEQ/L (3.5-5.1); SODIUM LEVEL 145 MEQ/L (136-145)
== END ==
DX: M86.171 Other acute osteomyelitis, right ankle and foot (principal)

== ENCOUNTER → 2018-05-05 | Outpatient (REF) ==
[2018-05-05 10:25] LABS: HEMATOCRIT 26.7 % (42.0-52.0); HEMOGLOBIN 8.4 g/dl (13.5-17.5); MEAN CORPUSCULAR HEMOGLOBIN 28.9 pg (27.0-33.0); MEAN CORPUSCULAR HGB CONC 31.5 g/dl (32.0-36.5); MEAN CORPUSCULAR VOLUME 91.8 fl (80.0-96.0); PLATELET COUNT, AUTOMATED 182 10^3/uL (150-450); RED BLOOD COUNT 2.91 10^6/uL (4.30-6.10); RED CELL DISTRIBUTION WIDTH 16.2 % (11.5-14.5); WHITE BLOOD COUNT 5.7 10^3/uL (4.0-10.0)
[2018-05-05 10:52] LABS: ANION GAP 8 MEQ/L (8-16); BLOOD UREA NITROGEN 31 MG/DL (7-18); CALCIUM LEVEL 7.8 MG/DL (8.8-10.2); CARBON DIOXIDE LEVEL 25 MEQ/L (21-32); CHLORIDE LEVEL 108 MEQ/L (98-107); CREATININE FOR GFR 2.43 MG/DL (0.70-1.30); GLOMERULAR FILTRATION RATE 28.4 (>49); GLUCOSE, FASTING 185 MG/DL (70-100); POTASSIUM SERUM 4.4 MEQ/L (3.5-5.1); SODIUM LEVEL 141 MEQ/L (136-145)
== END ==
DX: M86.9 Osteomyelitis, unspecified (principal)

== ENCOUNTER → 2018-05-12 | Outpatient (REF) ==
[2018-05-12 10:35] LABS: HEMOGLOBIN 9.3 g/dl (13.5-17.5); MEAN CORPUSCULAR VOLUME 90.9 fl (80.0-96.0); WHITE BLOOD COUNT 5.8 10^3/uL (4.0-10.0)
[2018-05-12 10:36] LABS: MEAN CORPUSCULAR HEMOGLOBIN 28.2 pg (27.0-33.0); PLATELET COUNT, AUTOMATED 228 10^3/uL (150-450); RED CELL DISTRIBUTION WIDTH 15.4 % (11.5-14.5)
[2018-05-12 11:04] LABS: ANION GAP 7 MEQ/L (8-16); BLOOD UREA NITROGEN 33 MG/DL (7-18); CALCIUM LEVEL 8.5 MG/DL (8.8-10.2); CARBON DIOXIDE LEVEL 27 MEQ/L (21-32); CHLORIDE LEVEL 108 MEQ/L (98-107); CREATININE FOR GFR 2.44 MG/DL (0.70-1.30); GLOMERULAR FILTRATION RATE 28.3 (>49); GLUCOSE, FASTING 164 MG/DL (70-100); POTASSIUM SERUM 4.1 MEQ/L (3.5-5.1); SODIUM LEVEL 142 MEQ/L (136-145)
== END ==
DX: R60.9 Edema, unspecified (principal)

== ENCOUNTER → 2018-05-15 | Outpatient (REF) ==
[2018-05-15 13:41] LABS: ANION GAP 9 MEQ/L (8-16); BLOOD UREA NITROGEN 33 MG/DL (7-18); CALCIUM LEVEL 8.1 MG/DL (8.8-10.2); CARBON DIOXIDE LEVEL 26 MEQ/L (21-32); CHLORIDE LEVEL 108 MEQ/L (98-107); CREATININE FOR GFR 2.25 MG/DL (0.70-1.30); GLUCOSE, FASTING 172 MG/DL (70-100); POTASSIUM SERUM 4.3 MEQ/L (3.5-5.1); SODIUM LEVEL 143 MEQ/L (136-145)
== END ==
DX: R60.9 Edema, unspecified (principal)

== ENCOUNTER → 2018-05-19 | Outpatient (REF) | payer MEDICARE ==
[2018-05-19 09:54] LABS: HEMATOCRIT 32.2 % (42.0-52.0); HEMOGLOBIN 9.9 g/dl (13.5-17.5); MEAN CORPUSCULAR HEMOGLOBIN 28.6 pg (27.0-33.0); MEAN CORPUSCULAR HGB CONC 30.7 g/dl (32.0-36.5); MEAN CORPUSCULAR VOLUME 93.1 fl (80.0-96.0); PLATELET COUNT, AUTOMATED 247 10^3/uL (150-450); RED BLOOD COUNT 3.46 10^6/uL (4.30-6.10); RED CELL DISTRIBUTION WIDTH 15.1 % (11.5-14.5); WHITE BLOOD COUNT 6.2 10^3/uL (4.0-10.0)
[2018-05-19 10:23] LABS: ANION GAP 8 MEQ/L (8-16); BLOOD UREA NITROGEN 33 MG/DL (7-18); CALCIUM LEVEL 8.6 MG/DL (8.8-10.2); CARBON DIOXIDE LEVEL 27 MEQ/L (21-32); CHLORIDE LEVEL 109 MEQ/L (98-107); CREATININE FOR GFR 2.35 MG/DL (0.70-1.30); GLOMERULAR FILTRATION RATE 29.5 (>49); GLUCOSE, FASTING 96 MG/DL (70-100); POTASSIUM SERUM 4.1 MEQ/L (3.5-5.1); SODIUM LEVEL 144 MEQ/L (136-145)
== END ==
DX: M86.9 Osteomyelitis, unspecified (principal)
CPT/HCPCS: 80048

== ENCOUNTER → 2018-05-26 | Outpatient (REF) | payer MEDICARE ==
[2018-05-26 10:23] LABS: HEMATOCRIT 33.8 % (42.0-52.0); HEMOGLOBIN 10.4 g/dl (13.5-17.5); MEAN CORPUSCULAR HEMOGLOBIN 28.4 pg (27.0-33.0); MEAN CORPUSCULAR HGB CONC 30.8 g/dl (32.0-36.5); MEAN CORPUSCULAR VOLUME 92.3 fl (80.0-96.0); PLATELET COUNT, AUTOMATED 234 10^3/uL (150-450); RED BLOOD COUNT 3.66 10^6/uL (4.30-6.10); RED CELL DISTRIBUTION WIDTH 14.6 % (11.5-14.5); WHITE BLOOD COUNT 7.8 10^3/uL (4.0-10.0)
[2018-05-26 10:47] LABS: ANION GAP 8 MEQ/L (8-16); BLOOD UREA NITROGEN 33 MG/DL (7-18); CALCIUM LEVEL 8.8 MG/DL (8.8-10.2); CARBON DIOXIDE LEVEL 27 MEQ/L (21-32); CHLORIDE LEVEL 106 MEQ/L (98-107); CREATININE FOR GFR 2.49 MG/DL (0.70-1.30); GLOMERULAR FILTRATION RATE 27.6 (>49); GLUCOSE, FASTING 176 MG/DL (70-100); POTASSIUM SERUM 4.3 MEQ/L (3.5-5.1); SODIUM LEVEL 141 MEQ/L (136-145)
== END ==
DX: M86.9 Osteomyelitis, unspecified (principal); N18.9 Chronic kidney disease, unspecified

== ENCOUNTER → 2018-06-02 | Outpatient (REF) ==
[2018-06-02 10:44] LABS: HEMATOCRIT 32.1 % (42.0-52.0); HEMOGLOBIN 10.2 g/dl (13.5-17.5); MEAN CORPUSCULAR HEMOGLOBIN 28.3 pg (27.0-33.0); MEAN CORPUSCULAR HGB CONC 31.8 g/dl (32.0-36.5); MEAN CORPUSCULAR VOLUME 88.9 fl (80.0-96.0); PLATELET COUNT, AUTOMATED 251 10^3/uL (150-450); RED BLOOD COUNT 3.61 10^6/uL (4.30-6.10); RED CELL DISTRIBUTION WIDTH 13.9 % (11.5-14.5)
[2018-06-02 10:59] LABS: ANION GAP 10 MEQ/L (8-16); BLOOD UREA NITROGEN 47 MG/DL (7-18); CALCIUM LEVEL 8.9 MG/DL (8.8-10.2); CARBON DIOXIDE LEVEL 25 MEQ/L (21-32); CHLORIDE LEVEL 106 MEQ/L (98-107); CREATININE FOR GFR 2.67 MG/DL (0.70-1.30); GLOMERULAR FILTRATION RATE 25.5 (>49); GLUCOSE, FASTING 183 MG/DL (70-100); POTASSIUM SERUM 4.2 MEQ/L (3.5-5.1); SODIUM LEVEL 141 MEQ/L (136-145)
== END ==
DX: N18.9 Chronic kidney disease, unspecified (principal)

== ENCOUNTER → 2018-07-03 | Outpatient (CLI) | payer MEDICARE | LOC: M PLARAD 09:56 | DX: R60.0 Localized edema (principal); L97.515 Non-pressure chronic ulcer of other part of right foot with muscle involvement without evidence of necrosis; Z89.421 Acquired absence of other right toe(s); M86.171 Other acute osteomyelitis, right ankle and foot | CPT/HCPCS: 73718 ==

== ENCOUNTER → 2018-07-06 | Outpatient (REF) | payer MEDICARE ==
[2018-07-06 12:13] LABS: ANION GAP 7 MEQ/L (8-16); BLOOD UREA NITROGEN 47 MG/DL (7-18); CALCIUM LEVEL 8.3 MG/DL (8.8-10.2); CARBON DIOXIDE LEVEL 26 MEQ/L (21-32); CHLORIDE LEVEL 112 MEQ/L (98-107); CREATININE FOR GFR 3.02 MG/DL (0.70-1.30); GLOMERULAR FILTRATION RATE 22.1 (>49); GLUCOSE, FASTING 73 MG/DL (70-100); POTASSIUM SERUM 4.1 MEQ/L (3.5-5.1); SODIUM LEVEL 145 MEQ/L (136-145)
== END ==
LOC: M SFHCCLAY 07:14
DX: I15.1 Hypertension secondary to other renal disorders (principal)
CPT/HCPCS: 80048

== ENCOUNTER → 2018-07-16 | Outpatient (REF) | payer MEDICARE ==
[2018-07-16 16:46] LABS: ANION GAP 6 MEQ/L (8-16); BLOOD UREA NITROGEN 38 MG/DL (7-18); CALCIUM LEVEL 8.4 MG/DL (8.8-10.2); CARBON DIOXIDE LEVEL 29 MEQ/L (21-32); CHLORIDE LEVEL 107 MEQ/L (98-107); CREATININE FOR GFR 3.34 MG/DL (0.70-1.30); GLOMERULAR FILTRATION RATE 19.7 (>49); GLUCOSE, FASTING 198 MG/DL (70-100); POTASSIUM SERUM 4.7 MEQ/L (3.5-5.1); SODIUM LEVEL 142 MEQ/L (136-145)
== END ==
LOC: M SHH 16:22
DX: N18.3 Chronic kidney disease, stage 3 (moderate) (principal); I15.1 Hypertension secondary to other renal disorders
CPT/HCPCS: 80048

== ENCOUNTER → 2018-08-12 | Outpatient (CLI) | payer MEDICARE ==
[~2018-08-12] MED LIST changes: +ACET-683 PO; +ACET1TAB55 PO; +ALB2.5NEB NEB; +ALBU83IN NEB; +AMIT25TA PO; +AMLO10TA5 PO; +AMLO2.5T3 PO; +AMLO25TA PO; +ASPI1TAB PO; +ASPI81TA85 PO; +ATIV1TAB10 PO; +ATOR40TA75 PO; +AUGM500T34 PO; +BASA100I SC; +BISA10SU PR; +BISA10SU4 PR; +DICL13PA TOP; +DOXY-350 PO; +DOXY100C PO; +ENEMENE4 PR; +ENOX150I3 SC; +ENSULIQ64 PO; +FEBU40TA PO; +FERR32TA PO; +FLOM0.4C39 PO; +FLUD0.1T PO; +GABA-843 PO; +HEPA50VL SQ; -HEPARIN 1,000 UNITS/ML 10ML VIAL (FOR RADIOLOGY& DIALYSIS ONLY) As Ordered; +HYDR-3713 PO; +HYDR-3910 PO; +HYDR25TAB PO; +IMOD2CAP PO; +INSUDET SC; -ISOVUE-300 61% 50ML VIAL (Q9967) As Ordered; +KETO2CR TOP; +LANTINJ4 SC; +LEVE1INJ5 SC; -LIDOCAINE 2% MDV 20 ML VIAL As Ordered; +LISI40TAB PO; +LOVE0.8I3 SC; +META1TAB22 PO; +METO1TAB32 PO; +METO1TAB7 PO; +METO25TA4 PO; +METO37.5 PO; -MIDAZOLAM INJ 2 MG/2 ML VIAL (J2250) As Ordered; +MILK120011 FT; +MILK120011 PO; +MULTTAB23 PO; +MUSC1CRE TOP; +NOVOINJ3 SC; +NYAM10003 TOP; +No Historical Meds; +OXYCO5TA PO; +PANT40TA3 PO; +PRED20TA PO; +RISATAB3 PO; +SODI325T9 PO; +SPIR-10 PO; +TORS20TA2 PO; +TRAM37.53 PO; +TYLE325C PO; +VITAD1000T PO; +[UNRECOGNIZED DRUG - CODE] PO; -fentaNYL 100 MCG/2 ML INJECTION (J3010) As Ordered
--- NOTE | 2018-08-12 15:18 | REP ---
BILATERAL LOWER EXTREMITY DUPLEX DOPPLER VENOUS ULTRASOUND WITH ARTERIAL AND VENOUS MAPPING FOR ARTERIOVENOUS FISTULA: Real-time compression and duplex Doppler interrogation of bilateral upper extremity deep venous system is performed. Bilaterally, jugular, subclavian, axillary, branchial, basilic and cephalic veins are fully compressible with no intraluminal thrombus. On the right, basilic vein measures 3 mm at the humerus, 5 mm in the antecubital and upper forearm, 3 mm in the midforearm, 2 mm at the wrist and 4 mm in the median cubital region. Right cephalic vein measures 3 mm at the upper humerus, 4 mm at the mid humerus, 5 mm in the antecubital region, 3 mm in the region of the forearm and wrist. Triphasic waveforms are seen throughout the arterial structures of the right upper extremity with normal flow velocities. Right axillary and brachial artery measures 7 mm in diameter, radial artery 4 mm and ulnar artery 7 mm. Left basilic vein measures 5 mm at the upper humerus, 3 mm at the mid humerus and antecubital region, 1 mm in the upper forearm, mid forearm and wrist and 3 mm in the median cubital region. Left cephalic vein measures 3 mm at the level of the humerus, 4 mm at the antecubital region, 2 mm at the leve of the forearm and wrist. Left upper extremity arterial structures demonstrate biphasic and triphasic waveforms with normal flow velocities. Left axillary artery measures 6 mm as does the brachial artery. Left radial and ulnar arteries measure 3 mm. Please note the examination was performed with a tourniquet bilaterally. Electronically Signed by Rishabh Stewart MD 08/12/2018 07:56 P
== END ==
LOC: M RAD 11:25
PROVIDERS: ATTEND Internal Medicine Nephrology
DX: N18.6 End stage renal disease (principal); Z99.2 Dependence on renal dialysis

== ENCOUNTER 2018-10-30 09:18 | Day surgery (SDC) | payer MEDICARE ==
[~2018-10-30] VITALS: Ht 180.3 cm; Wt 116.1 kg
[~2018-10-30 09:18] MED LIST changes: -ASPI1TAB PO; +ASPI81TA26 PO; +ELIQ5TAB PO; +FURO40TA2 PO; +HEPA1INJ23 SQ; -HEPA50VL SQ; +HYDR-2541 PO; -HYDR25TAB PO; +LISI40TA52 PO; -LISI40TAB PO; +MULTCAP PO; +NS 1,000 ML IV ONE; +ROCA0.25 PO; +TRIA1CR80 TOP; +VITA2000 PO
[2018-10-30] MEDS ORDERED: LIDOCAINE 1% SDV INJ 30 ML VIAL As Ordered ONE (12:50)
[2018-10-30] MEDS ORDERED: BUPIVACAINE HCL 0.5% 30 ML VIAL As Ordered ONE (12:50)
[2018-10-30] MEDS ORDERED: HEPARIN SOD (PORCINE) 5000 UNITS/ML VIAL As Ordered ONE (12:50)
[2018-10-30] MEDS ORDERED: PROPOFOL 200 MG/20 ML VIAL As Ordered ONE ×2 (12:52→13:43)
[2018-10-30] MEDS ORDERED: MIDAZOLAM INJ 2 MG/2 ML VIAL (J2250) As Ordered ONE (12:52)
[2018-10-30] MEDS ORDERED: LIDOCAINE 2% INJ 100 MG/5 ML SDV (FOR ANES.) As Ordered ONE (12:52)
[2018-10-30] MEDS ORDERED: fentaNYL 100 MCG/2 ML INJECTION (J3010) As Ordered ONE (12:52)
[2018-10-30] MEDS ORDERED: METOCLOPRAMIDE INJ 10MG/2ML VIAL (J2765) IV PRN (14:45)
[2018-10-30] MEDS ORDERED: NS 1,000 ML IV SCH (14:45)
[2018-10-30] MEDS ORDERED: PERCOCET 5MG/325MG TAB PO PRN (14:45)
[2018-10-30] MEDS ORDERED: ONDANSETRON 4MG/2ML VIAL (J2405) IV PRN (14:45)
[2018-10-30 14:50] VITALS: BP 165/82
--- NOTE | 2018-10-31 10:11 | ECGEPIP ---
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
--- NOTE | 2018-11-04 14:27 | RO ---
DATE OF PROCEDURE: 10/30/2018 ATTENDING SURGEON: Kaleigh Valdivia MD STABLE HELPER: None. PREOPERATIVE DIAGNOSIS: Chronic renal insufficiency nearing end-stage renal disease. POSTOPERATIVE DIAGNOSIS: Chronic renal insufficiency nearing end-stage renal disease. PROCEDURE: Right brachiocephalic arteriovenous fistula creation. INDICATION: The patient is a 68-year-old male with chronic renal insufficiency nearing end-stage renal disease who will require creation of an arteriovenous fistula for future hemodialysis access. The patient will undergo creation of a right brachiocephalic arteriovenous fistula. Risks, benefits, and alternative treatment options were discussed with the patient. ANESTHESIA: Local monitored anesthesia care (MAC). ESTIMATED BLOOD LOSS: Minimal. INTRAVENOUS (IV) FLUIDS: 150 mL. HEPARIN: None. COMPLICATIONS: None. DRAINS: None. SPECIMENS: None. IMPLANTS: None. DESCRIPTION OF PROCEDURE: The patient was taken the operating room, placed supine on the operating room table. The right upper extremity was prepped and draped in a standard surgical fashion. A transverse incision was made at the antecubital fossa. Cephalic vein was sharply dissected, dilated with heparinized saline, and then brought to the brachial artery which had been sharply dissected. The cephalic vein was anastomosed to the brachial artery in an end-to-side fashion using 6-0 Prolene suture. There was good flow in the fistula at the completion the anastomosis. Hemostasis was obtained after which the incision was closed using 3-0 Monocryl in a running subcuticular fashion. Steri-Strips and dressings were applied. The patient tolerated the procedure well. All instrument, sponge, and needle counts were correct at the end of the case. There were no complications. Dr. Valdivia was present for and directed the entire case. The patient was transferred to the recovery room awake, alert, extubated, and in stable condition.
== END 2018-10-30 15:10 | disposition home or self-care (01) ==
LOC: M SDC 09:18
PROVIDERS: ATTEND Surgery Vascular Surgery
DX: N18.9 Chronic kidney disease, unspecified (principal)
CPT/HCPCS: 36821; 93005; J2250; J3010

== ENCOUNTER → 2019-01-26 | Outpatient (REF) | payer MEDICARE ==
[~2019-01-26] MED LIST changes: -NS 1,000 ML IV ONE
[2019-01-26 21:18] LABS: CHOLESTEROL LEVEL 197 MG/DL (<200); CHOLESTEROL RISK RATIO 6.566 (<5); HDL CHOLESTEROL 30 MG/DL (>40); LDL CHOLESTEROL 99 MG/DL (<100); NON-HDL-C 167 MG/DL; TRIGLYCERIDES LEVEL 338 MG/DL (<150)
[2019-01-27 10:35] LABS: HEPATITIS B SURFACE ANTIBODY NEGATIVE (POSITIVE)
[2019-01-27 10:50] LABS: HEPATITIS B SURFACE ANTIGEN NEGATIVE (NEGATIVE)
[2019-01-27 11:11] LABS: HEPATITIS C VIRUS ABY INDEX 0.1 INDEX (<0.8)
[2019-01-27 11:12] LABS: HEPATITIS B CORE ANTIBODY IGM NEGATIVE (NEGATIVE)
== END ==
LOC: M LAB REF 16:45
PROVIDERS: ATTEND Internal Medicine Nephrology
DX: N18.6 End stage renal disease (principal); E78.2 Mixed hyperlipidemia; Z79.899 Other long term (current) drug therapy

== ENCOUNTER → 2019-05-07 | Outpatient (REF) | payer MEDICARE ==
[~2019-05-07] MED LIST changes: +CHOL100029 PO; -FEBU40TA PO; +FEBU40TA4 PO; +HYDR100T PO; +OMEG350C PO; +RENV2TAB PO; +VITA200016 PO; -VITAD1000T PO
== END ==
LOC: M LAB REF 17:00
PROVIDERS: ATTEND Internal Medicine Nephrology
DX: D50.9 Iron deficiency anemia, unspecified (principal)

== ENCOUNTER → 2019-07-16 | Outpatient (REF) | payer MEDICARE ==
[~2019-07-16] MED LIST changes: -HYDR100T PO; -OMEG350C PO; -RENV2TAB PO; -VITA200016 PO
[2019-07-19 11:03] LABS: HEPATITIS B CORE ANTIBODY IGM NEGATIVE (NEGATIVE); HEPATITIS B SURFACE ANTIBODY NEGATIVE (POSITIVE); HEPATITIS B SURFACE ANTIGEN NEGATIVE (NEGATIVE); HEPATITIS C VIRUS ABY INDEX 0.2 INDEX (<0.8)
== END ==
LOC: M LAB REF 17:35
PROVIDERS: ATTEND Internal Medicine Nephrology
DX: N18.6 End stage renal disease (principal); Z79.899 Other long term (current) drug therapy

== ENCOUNTER 2019-08-10 06:50 | Day surgery (SDC) | payer MEDICARE ==
[~2019-08-10] VITALS: Ht 180.3 cm; Wt 111.1 kg
[~2019-08-10 06:50] MED LIST changes: +HYDR100T PO; +LIDOCAINE 1% MDV 20ML VIAL SQ PRN; +OMEG350C PO; +RENV2TAB PO; +VITA200016 PO
[2019-08-10] MEDS ORDERED: LR 1,000 ML IV ONE (07:00)
[2019-08-10] MEDS ORDERED: LIDOCAINE 2% INJ 100 MG/5 ML SDV (FOR ANES.) As Ordered ONE (08:00)
[2019-08-10] MEDS ORDERED: ROCURONIUM BROMIDE 50 MG/5 ML VIAL As Ordered ONE (08:00)
[2019-08-10] MEDS ORDERED: PROPOFOL 200 MG/20 ML VIAL As Ordered ONE (08:00)
[2019-08-10] MEDS ORDERED: fentaNYL 100 MCG/2 ML INJECTION (J3010) As Ordered ONE ×2 (08:01→09:25)
[2019-08-10] MEDS ORDERED: dexameTHASONE 4 MG/ML 1ML VIAL (J1100) As Ordered ONE (08:01)
[2019-08-10] MEDS ORDERED: ONDANSETRON 4MG/2ML VIAL (J2405) As Ordered ONE (08:01)
[2019-08-10] MEDS ORDERED: D5W/0.45% SODIUM CHLORIDE 1,000 ML IV ONE (08:15)
[2019-08-10] MEDS ORDERED: ceFAZolin SOD 2 GM in IV 1 EA IV ONE (08:15)
[2019-08-10] MEDS ORDERED: HEPARIN SOD (PORCINE) 5000 UNITS/ML VIAL As Ordered ONE ×2 (08:17→09:37)
[2019-08-10] MEDS ORDERED: LIDOCAINE 1% SDV INJ 30 ML VIAL As Ordered ONE (08:17)
[2019-08-10] MEDS ORDERED: ePHEDrine SULFATE 25 MG/5 ML(5MG/ML) SYRINGE As Ordered ONE (09:14)
[2019-08-10] MEDS ORDERED: ACETAMINOPHEN 1000MG 100ML IV BTL (OFIRMEV) (J0131 PER 10MG) As Ordered ONE (09:29)
[2019-08-10] MEDS ORDERED: SUGAMMADEX SODIUM 500 MG/5 ML VIAL (BRIDION) As Ordered ONE ×2 (09:29→09:32)
[2019-08-10] MEDS ORDERED: ESMOLOL INJ 100MG/10ML VIAL As Ordered ONE (09:46)
[2019-08-10] MEDS ORDERED: MEPERIDINE INJ 25 MG/ML VIAL (J2175) IV PRN (10:45)
[2019-08-10] MEDS ORDERED: LR 1,000 ML IV SCH (10:45)
[2019-08-10] MEDS ORDERED: PERCOCET 5MG/325MG TAB PO PRN (10:45)
[2019-08-10] MEDS ORDERED: METOCLOPRAMIDE INJ 10MG/2ML VIAL (J2765) IV PRN (10:45)
[2019-08-10] MEDS ORDERED: fentaNYL 100 MCG/2 ML INJECTION (J3010) IV PRN (10:45)
[2019-08-10] MEDS ORDERED: ONDANSETRON 4MG/2ML VIAL (J2405) IV PRN (10:45)
[2019-08-10] MEDS ORDERED: NORCO, ANEXSIA 5/325MG TABLET (HYDROcodone/ACETAMINOPHEN) PO PRN (11:45)
[2019-08-10] MEDS ORDERED: ACETAMINOPHEN TAB 650MG DOSE (2X325MG) PO PRN (11:45)
--- NOTE | 2019-08-10 12:15 | ECGEPIP ---
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 Nonspecific ST-T abnormalities. Increased heart rate compared with 10/30/2018. Electronically Signed on 08-10-2019 12:15:06 EST by Kingsley Mancini
[2019-08-10 12:20] VITALS: BP 166/79
--- NOTE | 2019-08-10 16:37 | RO ---
DATE OF PROCEDURE: 08/10/2019 PREPROCEDURE DIAGNOSIS: End-stage renal disease. POSTPROCEDURE DIAGNOSIS: End-stage renal disease. PROCEDURE: Implantation of continuous ambulatory peritoneal dialysis catheter. SURGEON: Dr. Darrick Sahni CARPET REPAIRER: ANESTHESIA: General. INDICATIONS FOR THE PROCEDURE: The patient is a 68-year-old man with progressively worsening renal function, now at about end stage. He is now for placement of a peritoneal dialysis catheter to allow peritoneal dialysis. DESCRIPTION OF PROCEDURE: The patient was brought to the operating room and placed on the table in a supine position. He was placed under general endotracheal anesthesia. The patient's abdomen was prepped and draped in a sterile fashion. A site was marked in the left upper quadrant in a paramedian position for the 0.25% Marcaine was infiltrated. An approximately 3 to 3-1/2 cm incision was made, and this was deepened through the subcutaneous tissues to the anterior rectus sheath, which was opened longitudinally. The muscle fibers of the rectus were spread, and the posterior sheath was opened in a small opening. A pursestring suture of #2-0 Vicryl was placed. The 62 cm double pledgeted pigtail Clayton dialysis catheter was flushed with saline and placed over a long stylet. The inferior edge of the opening in the fascia was elevated, and the catheter was directed inferiorly along the posterior aspect of the anterior abdominal wall. Once it had been advanced 10-15 cm, the catheter was then gently slipped off the stylet. The inner pledget was placed just outside the fascia, and the pursestring suture was tied down. It was then tied around the pledget. The anterior rectus sheath was closed with a running suture of #0 Vicryl. The catheter was tunneled through the subcutaneous tissues to exit through a small stab incision slightly lower and lateral. The patient was placed in a slight reverse Trendelenburg position. The catheter fittings were attached and approximately a liter of normal saline was then infused through the catheter into the abdomen. Once the infusion was complete, the bag was dropped to the floor and by gravity siphon, approximately 300 mL of fluid returned. The fluid was clear with no blood or clots. However, the return was fairly poor. I elected at this point to remove the catheter and reinsert it to see if there was a problem that could be corrected. Therefore, the incision was reopened and the catheter was removed. A new pursestring suture of #2-0 Vicryl was placed. The patient was placed into a Trendelenburg position and again the inferior edge of the fascial opening was elevated. The catheter was placed over a stylet and advanced into the lower abdomen and then slipped off the end of the stylet. The pledget was placed just outside the fascia and the pursestring was tied down and then tied around the pledget. The anterior rectus sheath was closed with a #0 Vicryl. The catheter was retunneled through the exit site. The infusion adaptor was attached. I attempted to allow this to drain, but no fluid would return. Therefore, an additional approximately 600 mL of sterile saline (dictation cut off) through the catheter and approximately 150 mL returned through gravity siphon. Again, the fluid was clear with no clots or blood. I elected, at this point, to leave the catheter in its current position. The subcutaneous tissues were closed with chromic, and the skin edges were approximated with a running subcuticular #4-0 Vicryl. Steri-Strips were applied. The catheter was filled with 1 mL of 5000 units per mL heparin and 1.2 mL of sterile saline. The catheter plug was applied and a small clamp was also placed on the catheter. The site was dressed with a chlorhexidine gluconate Op-Site and then covered with additional gauze and the catheter was coiled beneath this. The patient tolerated the procedure well without apparent complication. He was awakened in the operating room, extubated, and moved to the recovery room in stable condition.
== END 2019-08-10 13:00 | disposition home or self-care (01) ==
LOC: M SDC 06:50
PROVIDERS: ATTEND Surgery
DX: N18.6 End stage renal disease (principal); I15.0 Renovascular hypertension; E10.22 Type 1 diabetes mellitus with diabetic chronic kidney disease; E78.00 Pure hypercholesterolemia, unspecified; I69.354 Hemiplegia and hemiparesis following cerebral infarction affecting left non-dominant side; I50.32 Chronic diastolic (congestive) heart failure; G61.0 Guillain-Barre syndrome; Z86.69 Personal history of other diseases of the nervous system and sense organs; D63.1 Anemia in chronic kidney disease; M1A.30X0 Chronic gout due to renal impairment, unspecified site, without tophus (tophi); Z86.718 Personal history of other venous thrombosis and embolism; M54.2 Cervicalgia; N40.0 Benign prostatic hyperplasia without lower urinary tract symptoms; I48.91 Unspecified atrial fibrillation; R60.0 Localized edema; I73.9 Peripheral vascular disease, unspecified; Z88.1 Allergy status to other antibiotic agents; Z79.899 Other long term (current) drug therapy; Z79.01 Long term (current) use of anticoagulants
CPT/HCPCS: 49421; 93005; J0131; J0690; J1100; J2405; J3010

== ENCOUNTER → 2019-08-24 | Outpatient (REF) | payer MEDICARE ==
[~2019-08-24] MED LIST changes: -LIDOCAINE 1% MDV 20ML VIAL SQ PRN
[2019-08-24 17:21] LABS: HEMATOCRIT 30.8 % (42.0-52.0); HEMOGLOBIN 9.4 g/dl (13.5-17.5); MEAN CORPUSCULAR HEMOGLOBIN 28.2 pg (27.0-33.0); MEAN CORPUSCULAR HGB CONC 30.5 g/dl (32.0-36.5); MEAN CORPUSCULAR VOLUME 92.5 fl (80.0-96.0); PLATELET COUNT, AUTOMATED 239 10^3/uL (150-450); RED BLOOD COUNT 3.33 10^6/uL (4.30-6.10)
[2019-08-24 17:26] LABS: HEMOGLOBIN A1c 6.5 %
== END ==
LOC: M SFHCCLAY 10:26
PROVIDERS: ATTEND Family Medicine
DX: E11.40 Type 2 diabetes mellitus with diabetic neuropathy, unspecified (principal); N18.5 Chronic kidney disease, stage 5; E78.2 Mixed hyperlipidemia
CPT/HCPCS: 83036; 85027; G0463

== ENCOUNTER → 2019-08-26 | Outpatient (REF) | payer MEDICARE ==
[2019-08-26 12:40] LABS: CHOLESTEROL RISK RATIO 5.47 (<5)
== END ==
LOC: M SFHCCLAY 07:12
PROVIDERS: ATTEND Family Medicine
DX: E11.40 Type 2 diabetes mellitus with diabetic neuropathy, unspecified (principal); N18.5 Chronic kidney disease, stage 5; E78.2 Mixed hyperlipidemia

== ENCOUNTER → 2019-08-26 | Outpatient (REF) | payer MEDICARE ==
[2019-08-27 10:48] LABS: HEPATITIS B CORE ANTIBODY IGM NEGATIVE (NEGATIVE); HEPATITIS B SURFACE ANTIBODY NEGATIVE (POSITIVE); HEPATITIS B SURFACE ANTIGEN NEGATIVE (NEGATIVE); HEPATITIS C VIRUS ABY INDEX < 0.0 INDEX (<0.8)
== END ==
LOC: M LAB REF 16:53
PROVIDERS: ATTEND Internal Medicine Nephrology
DX: N18.6 End stage renal disease (principal); E11.40 Type 2 diabetes mellitus with diabetic neuropathy, unspecified; E78.2 Mixed hyperlipidemia

== ENCOUNTER 2021-12-16 06:54 | Emergency (ER) | payer MEDICARE ==
[~2021-12-16] VITALS: Ht 180.3 cm; Wt 118.2 kg
[~2021-12-16 06:54] MED LIST changes: -AMIT25TA PO; +AMIT25TA17 PO; -AMLO10TA5 PO; +AMLO1TAB25 PO; -ASPI81TA85 PO; +ASPI81TA86 PO; -DOXY100C PO; +DOXY100C3 PO; +GABA-282 PO; -GABA-843 PO; +PANT40TA29 PO; -PANT40TA3 PO
[2021-12-16] MEDS ORDERED: ATOR40TA75 (07:12)
[2021-12-16] MEDS ORDERED: CARV3.12 (07:12)
[2021-12-16] MEDS ORDERED: VELP5CHW PO (07:12)
[2021-12-16] MEDS ORDERED: DOXY100T (07:12)
[2021-12-16] MEDS ORDERED: RENATAB5 PO (07:12)
[2021-12-16] MEDS ORDERED: MORPHINE 4 MG/ML 1ML VIAL/SYRINGE IV ONE (08:25)
[2021-12-16] MEDS ORDERED: ONDANSETRON 4MG/2ML VIAL IV ONE (08:25)
[2021-12-16 08:59] LABS: BASO # 0.1 10^3/uL (0.0-0.2); BASO % 0.5 % (0.0-1.0); EOS # 0.1 10^3/uL (0.0-0.5); EOS % 0.7 % (0.0-3.0); HEMATOCRIT 33.2 % (42.0-52.0); HEMOGLOBIN 10.7 g/dl (13.5-17.5); LYMPH # 1.3 10^3/uL (1.5-5.0); LYMPH % 10.7 % (24.0-44.0); MEAN CORPUSCULAR HEMOGLOBIN 30.9 pg (27.0-33.0); MEAN CORPUSCULAR HGB CONC 32.2 g/dl (32.0-36.5); MONO # 0.8 10^3/uL (0.0-0.8); MONO % 6.2 % (2.0-8.0); NEUTROPHILS # 9.9 10^3/uL (1.5-8.5); NEUTROPHILS % 81.3 % (36.0-66.0); PLATELET COUNT, AUTOMATED 202 10^3/uL (150-450); RED BLOOD COUNT 3.46 10^6/uL (4.30-6.10); WHITE BLOOD COUNT 12.2 10^3/uL (4.0-10.0)
[2021-12-16 09:32] LABS: ALBUMIN 3.2 GM/DL (3.2-5.2); BILIRUBIN,DIRECT 0.1 MG/DL (0.0-0.2); BILIRUBIN,TOTAL 0.4 MG/DL (0.2-1.0); TOTAL PROTEIN 6.8 GM/DL (6.4-8.2)
[2021-12-16] MEDS ORDERED: NS 1,000 ML IV ONE (10:25)
[2021-12-16] MEDS ORDERED: AMOX250T PO (13:25)
[2021-12-16] MEDS ORDERED: HYDR-3713 PO (13:25)
[2021-12-16] MEDS ORDERED: MM S100C PO (13:26)
[2021-12-16 13:34] VITALS: BP 140/96
== END 2021-12-16 13:44 | disposition home or self-care (01) ==
LOC: M ED 06:54
DX: N20.1 Calculus of ureter (principal); R94.31 Abnormal electrocardiogram [ECG] [EKG]; K21.9 Gastro-esophageal reflux disease without esophagitis; E11.9 Type 2 diabetes mellitus without complications; I10 Essential (primary) hypertension; E78.5 Hyperlipidemia, unspecified; Z86.79 Personal history of other diseases of the circulatory system; Z87.442 Personal history of urinary calculi; Z88.1 Allergy status to other antibiotic agents; Z79.899 Other long term (current) drug therapy
CPT/HCPCS: 74176; 80047; 80076; 81001; 83690; 85025; 93005; 96374; 96375; 99284; J2270; J2405

== ENCOUNTER 2021-12-18 10:51 | Emergency (ER) | payer MEDICARE ==
[~2021-12-18] VITALS: Ht 180.3 cm; Wt 118.2 kg
[~2021-12-18 10:51] MED LIST changes: +AMOX250T PO; +ATOR40TA75; +CARV3.12; +DOXY100T; +MM S100C PO; +RENATAB5 PO; +VELP5CHW PO
[2021-12-18] MEDS ORDERED: DEXTROSE 50% 50 ML SYRINGE IV STA (12:35)
[2021-12-18 13:00] LABS: BASO # 0.1 10^3/uL (0.0-0.2); BASO % 0.5 % (0.0-1.0); EOS # 0.2 10^3/uL (0.0-0.5); EOS % 1.8 % (0.0-3.0); HEMATOCRIT 32.5 % (42.0-52.0); HEMOGLOBIN 10.6 g/dl (13.5-17.5); LYMPH # 1.6 10^3/uL (1.5-5.0); LYMPH % 13.7 % (24.0-44.0); MEAN CORPUSCULAR HEMOGLOBIN 31.3 pg (27.0-33.0); MEAN CORPUSCULAR HGB CONC 32.6 g/dl (32.0-36.5); MEAN CORPUSCULAR VOLUME 95.9 fl (80.0-96.0); MONO # 0.9 10^3/uL (0.0-0.8); MONO % 7.8 % (2.0-8.0); NEUTROPHILS # 8.9 10^3/uL (1.5-8.5); NEUTROPHILS % 75.7 % (36.0-66.0); PLATELET COUNT, AUTOMATED 227 10^3/uL (150-450); RED BLOOD COUNT 3.39 10^6/uL (4.30-6.10); WHITE BLOOD COUNT 11.7 10^3/uL (4.0-10.0)
[2021-12-18 13:35] LABS: ALBUMIN 3.2 GM/DL (3.2-5.2); BILIRUBIN,DIRECT 0.2 MG/DL (0.0-0.2); BILIRUBIN,TOTAL 0.5 MG/DL (0.2-1.0); CALCIUM LEVEL 9.4 MG/DL (8.8-10.2); CREATININE FOR GFR 10.5 MG/DL (0.70-1.30); GLOMERULAR FILTRATION RATE 5.2 (>42); POTASSIUM SERUM 4.2 MEQ/L (3.5-5.1); TOTAL PROTEIN 6.9 GM/DL (6.4-8.2)
[2021-12-18 15:06] VITALS: BP 142/62
== END 2021-12-18 15:26 | disposition home or self-care (01) ==
LOC: M ED 10:51
DX: N20.1 Calculus of ureter (principal); E11.9 Type 2 diabetes mellitus without complications; I10 Essential (primary) hypertension; E78.5 Hyperlipidemia, unspecified; Z87.442 Personal history of urinary calculi; Z79.4 Long term (current) use of insulin; Z79.899 Other long term (current) drug therapy; Z88.1 Allergy status to other antibiotic agents

== ENCOUNTER → 2022-03-26 | Outpatient (CLI) | payer MEDICARE ==
[~2022-03-26] MED LIST changes: +ALBU2.5V10 NEB; -ALBU83IN NEB
== END ==
LOC: M RAD 16:02
PROVIDERS: ATTEND Internal Medicine Nephrology
DX: N20.1 Calculus of ureter (principal); M51.35 Other intervertebral disc degeneration, thoracolumbar region; R18.8 Other ascites

== ENCOUNTER 2022-04-18 11:49 | Inpatient (IN) | payer MEDICARE ==
[~2022-04-18] VITALS: Ht 180.3 cm; Wt 115.0 kg
[~2022-04-18 11:49] MED LIST changes: -ATOR40TA75; -CARV3.12; +CARV3.12 PO
[2022-04-18] MEDS ORDERED: LOPE1CAP5 PO (12:42)
[2022-04-18] MEDS ORDERED: RENATAB5 PO (12:42)
[2022-04-18] MEDS ORDERED: MORPHINE 4 MG/ML 1ML VIAL/SYRINGE IV ONE (13:00)
[2022-04-18 13:24] LABS: BASO % 0.2 % (0.0-1.0); EOS % 0.1 % (0.0-3.0); HEMATOCRIT 33.9 % (42.0-52.0); HEMOGLOBIN 10.8 g/dl (13.5-17.5); LYMPH # 1.1 10^3/uL (1.5-5.0); LYMPH % 5.7 % (24.0-44.0); MEAN CORPUSCULAR HEMOGLOBIN 30.8 pg (27.0-33.0); MEAN CORPUSCULAR HGB CONC 31.9 g/dl (32.0-36.5); MEAN CORPUSCULAR VOLUME 96.6 fl (80.0-96.0); MONO # 1.2 10^3/uL (0.0-0.8); MONO % 6.2 % (2.0-8.0); NEUTROPHILS # 16.8 10^3/uL (1.5-8.5); NEUTROPHILS % 87.2 % (36.0-66.0); PLATELET COUNT, AUTOMATED 216 10^3/uL (150-450); RED BLOOD COUNT 3.51 10^6/uL (4.30-6.10); WHITE BLOOD COUNT 19.3 10^3/uL (4.0-10.0)
[2022-04-18 13:34] LABS: INR 1.29; PROTHROMBIN TIME 16.5 SECONDS (12.7-14.5)
[2022-04-18 13:35] LABS: PARTIAL THROMBOPLASTIN TIME 29.8 SECONDS (25.9-37.0)
[2022-04-18] MEDS ORDERED: VANCOMYCIN HCL 1,000 MG, VIAL MATE ADAPTER 1 EACH in NS 250 ML IV ONE (13:35)
[2022-04-18] MEDS ORDERED: ISOVUE-370 76% 100ML VIAL As Ordered ONE (13:40)
[2022-04-18 14:07] LABS: RSV AMPLIFICATION NEGATIVE (NEGATIVE)
[2022-04-18 14:24] LABS: ALBUMIN 3.4 GM/DL (3.2-5.2); BILIRUBIN,DIRECT 0.2 MG/DL (0.0-0.2); BILIRUBIN,TOTAL 0.7 MG/DL (0.2-1.0); CALCIUM LEVEL 9.3 MG/DL (8.8-10.2); GLOMERULAR FILTRATION RATE 4.1 (>42); POTASSIUM SERUM 4.5 MEQ/L (3.5-5.1); TOTAL PROTEIN 7.4 GM/DL (6.4-8.2)
[2022-04-18] MEDS ORDERED: GENTAMICIN IV ONE (15:00)
[2022-04-18 18:26] LABS: SPEC. GRAVITY BODY FLUIDS 1.015 (NOT ESTABLISHED)
[2022-04-18 18:39] LABS: SOURCE, BODY FLUID ALBUMIN PERITONEAL; SOURCE, BODY FLUID GLUCOSE PERITONEAL; SOURCE, BODY FLUID TOT PROTEIN PERITONEAL; TOTAL PROTEIN, BODY FLUID 0.3 G/DL (NOT ESTABLISHED)
[2022-04-18 18:47] LABS: APPEARANCE, BODY FLUID CLOUDY (CLEAR); PERITONEAL FL COLOR COLORLESS (COLORLESS); SOURCE, BODY FLUID PERITONEAL
[2022-04-18] MEDS ORDERED: HOME MED LIST COMPLETE! XX SCH (19:40)
[2022-04-18] MEDS ORDERED: LOPERAMIDE 2 MG CAPLET PO PRN (20:15)
[2022-04-18] MEDS ORDERED: GLUCOSE 4GM CHEW TABLET PO PRN (20:15)
[2022-04-18] MEDS ORDERED: DEXTROSE 50% 50 ML SYRINGE IV PRN (20:15)
[2022-04-18] MEDS ORDERED: GLUCAGON INJ 1MG VIAL SC PRN (20:15)
[2022-04-18] MEDS ORDERED: oxyCODONE 5MG TAB PO PRN ×2 (20:30)
[2022-04-18] MEDS ORDERED: HYDROMORPHONE HCL 0.5 MG/ 0.5 ML SYRINGE (J1170 PER 1) IV ONE (21:00)
[2022-04-18] MEDS ORDERED: NS 1,000 ML IV ONE (21:00)
[2022-04-18] MEDS ORDERED: GENTAMICIN SULF 80MG/2ML VIAL IP ONE (22:00)
[2022-04-18] MEDS ORDERED: VANCOMYCIN 1000MG/20ML VIAL IP ONE (22:00)
[2022-04-18 22:30] VITALS: BP 113/56
[2022-04-18] MEDS: INSULIN LISPRO (NovoLOG) PER UNIT SC SCH (22:36)
[2022-04-18] MEDS: TAMSULOSIN 0.4 MG CAP PO SCH (22:47)
[2022-04-18] MEDS: APIXABAN 5 MG TAB (ELIQUIS) PO SCH (22:47)
[2022-04-18] MEDS: CARVedilol 3.125 MG TAB PO SCH (22:47)
[2022-04-18] MEDS: ATORVASTATIN 20 MG TAB PO SCH (22:47)
[2022-04-18] MEDS ORDERED: LEVEMIR (INSULIN DETEMIR) 1 UNITS/0.01ML SC ONE (22:50)
[2022-04-18] MEDS: LEVEMIR (INSULIN DETEMIR) 1 UNITS/0.01ML SC SCH (22:53)
[2022-04-19 04:00] VITALS: BP 114/57
[2022-04-19 05:29] LABS: HEMATOCRIT 27.1 % (42.0-52.0); HEMOGLOBIN 8.9 g/dl (13.5-17.5); MEAN CORPUSCULAR HGB CONC 32.8 g/dl (32.0-36.5); MEAN CORPUSCULAR VOLUME 97.5 fl (80.0-96.0); PLATELET COUNT, AUTOMATED 175 10^3/uL (150-450); RED BLOOD COUNT 2.78 10^6/uL (4.30-6.10)
[2022-04-19 06:37] LABS: CALCIUM LEVEL 8.1 MG/DL (8.8-10.2); CREATININE FOR GFR 12.8 MG/DL (0.70-1.30); GLOMERULAR FILTRATION RATE 4.1 (>42); MAGNESIUM LEVEL 2.8 MG/DL (1.8-2.4)
[2022-04-19] MEDS: INSULIN LISPRO (NovoLOG) PER UNIT SC SCH ×4 (07:30→20:33)
[2022-04-19] MEDS: SUCROFERRIC OXYHYDROXIDE 500MG CHEW TAB (VELPHORO) PO SCH ×3 (08:24→17:27)
[2022-04-19] MEDS: (RENVELA) SEVELAMER **CARBONate** 800 MG TAB PO SCH ×3 (08:24→17:27)
[2022-04-19] MEDS: CARVedilol 3.125 MG TAB PO SCH ×2 (08:25→20:52)
[2022-04-19] MEDS: APIXABAN 5 MG TAB (ELIQUIS) PO SCH ×2 (08:25→20:38)
[2022-04-19] MEDS ORDERED: HEPARIN SOD (PORCINE) 5000UNITS/ML 1ML VIAL/SYRINGE PD ONE ×2 (08:50→14:00)
[2022-04-19] MEDS ORDERED: FUROSEMIDE 40 MG TAB PO SCH (09:00)
[2022-04-19 11:34] LABS: APPEARANCE, BODY FLUID CLOUDY (CLEAR); PERITONEAL FL COLOR PALE YELLOW (COLORLESS); SOURCE, BODY FLUID PERITONEAL
[2022-04-19 13:31] LABS: PHOSPHORUS LEVEL 4.7 MG/DL (2.5-4.9)
[2022-04-19 14:00] VITALS: BP 122/61
[2022-04-19 19:59] VITALS: BP 118/54
[2022-04-19] MEDS: ATORVASTATIN 20 MG TAB PO SCH (20:38)
[2022-04-19] MEDS: LEVEMIR (INSULIN DETEMIR) 1 UNITS/0.01ML SC SCH (20:38)
[2022-04-19] MEDS: TAMSULOSIN 0.4 MG CAP PO SCH (20:38)
[2022-04-19 20:40] VITALS: BP 115/55
[2022-04-19] MEDS ORDERED: GENTAMICIN SULF 80MG/2ML VIAL IP ONE (22:00)
[2022-04-20 05:35] VITALS: BP 120/60
[2022-04-20 06:12] LABS: HEMATOCRIT 26.3 % (42.0-52.0); HEMOGLOBIN 8.5 g/dl (13.5-17.5); MEAN CORPUSCULAR HGB CONC 32.3 g/dl (32.0-36.5); PLATELET COUNT, AUTOMATED 189 10^3/uL (150-450); RED BLOOD COUNT 2.74 10^6/uL (4.30-6.10); WHITE BLOOD COUNT 9.7 10^3/uL (4.0-10.0)
[2022-04-20 06:36] LABS: CALCIUM LEVEL 8.5 MG/DL (8.8-10.2); GLOMERULAR FILTRATION RATE 4.4 (>42); MAGNESIUM LEVEL 2.8 MG/DL (1.8-2.4); POTASSIUM SERUM 3.7 MEQ/L (3.5-5.1)
[2022-04-20] MEDS: INSULIN LISPRO (NovoLOG) PER UNIT SC SCH ×4 (07:30→21:45)
[2022-04-20] MEDS: SUCROFERRIC OXYHYDROXIDE 500MG CHEW TAB (VELPHORO) PO SCH ×4 (08:57→17:56)
[2022-04-20] MEDS: APIXABAN 5 MG TAB (ELIQUIS) PO SCH ×2 (08:58→21:44)
[2022-04-20] MEDS: (RENVELA) SEVELAMER **CARBONate** 800 MG TAB PO SCH ×4 (08:59→17:56)
[2022-04-20] MEDS: CARVedilol 3.125 MG TAB PO SCH ×2 (08:59→22:02)
[2022-04-20] MEDS ORDERED: DARBEPOETIN 100 MCG/0.5 ML *NON-DIALYSIS* SYRINGE (J0881) SC SCH (09:00)
[2022-04-20 10:52] LABS: APPEARANCE, BODY FLUID HAZY (CLEAR); PERITONEAL FL COLOR PALE YELLOW (COLORLESS); SOURCE, BODY FLUID PERITONEAL
[2022-04-20] MEDS: HEPARIN SOD (PORCINE) 5000UNITS/ML 1ML VIAL/SYRINGE PD SCH ×4 (11:26→22:38)
[2022-04-20] MEDS ORDERED: GENTAMICIN SULF 80MG/2ML VIAL IP ONE (14:00)
[2022-04-20 16:00] VITALS: BP 120/50
[2022-04-20 19:53] VITALS: BP 150/68
[2022-04-20 20:45] VITALS: O2SAT 94
[2022-04-20] MEDS: ATORVASTATIN 20 MG TAB PO SCH (21:44)
[2022-04-20] MEDS: TAMSULOSIN 0.4 MG CAP PO SCH (21:44)
[2022-04-20] MEDS: LEVEMIR (INSULIN DETEMIR) 1 UNITS/0.01ML SC SCH (21:45)
[2022-04-20 21:58] VITALS: BP 118/51
[2022-04-21 04:56] VITALS: O2SAT 95
[2022-04-21 05:23] VITALS: BP 121/53
[2022-04-21] MEDS: HEPARIN SOD (PORCINE) 5000UNITS/ML 1ML VIAL/SYRINGE PD SCH (05:32)
[2022-04-21 06:18] LABS: HEMATOCRIT 24.2 % (42.0-52.0); HEMOGLOBIN 7.9 g/dl (13.5-17.5); MEAN CORPUSCULAR HEMOGLOBIN 31.3 pg (27.0-33.0); MEAN CORPUSCULAR HGB CONC 32.6 g/dl (32.0-36.5); PLATELET COUNT, AUTOMATED 201 10^3/uL (150-450); RED BLOOD COUNT 2.52 10^6/uL (4.30-6.10); WHITE BLOOD COUNT 8.5 10^3/uL (4.0-10.0)
[2022-04-21 07:01] LABS: CALCIUM LEVEL 8.1 MG/DL (8.8-10.2); GLOMERULAR FILTRATION RATE 4.9 (>42); MAGNESIUM LEVEL 2.5 MG/DL (1.8-2.4); POTASSIUM SERUM 3.8 MEQ/L (3.5-5.1)
[2022-04-21] MEDS: INSULIN LISPRO (NovoLOG) PER UNIT SC SCH ×2 (07:30→13:15)
[2022-04-21 07:57] LABS: PERITONEAL FL COLOR PALE YELLOW (COLORLESS); SOURCE, BODY FLUID PERITONEAL
[2022-04-21 07:58] LABS: APPEARANCE, BODY FLUID CLEAR (CLEAR)
[2022-04-21] MEDS: APIXABAN 5 MG TAB (ELIQUIS) PO SCH (08:27)
[2022-04-21] MEDS: SUCROFERRIC OXYHYDROXIDE 500MG CHEW TAB (VELPHORO) PO SCH ×2 (08:27→13:15)
[2022-04-21] MEDS: (RENVELA) SEVELAMER **CARBONate** 800 MG TAB PO SCH ×2 (08:27→13:15)
[2022-04-21 08:28] VITALS: BP 131/59
[2022-04-21] MEDS: CARVedilol 3.125 MG TAB PO SCH (08:28)
== END 2022-04-21 14:41 | disposition home or self-care (01) | DRG 919 ==
LOC: M ED 11:49 → M ED INP 20:12 → M MSPAV 22:29
PROVIDERS: ADMIT Family Medicine; ATTEND Family Medicine
DX: T85.71XA Infection and inflammatory reaction due to peritoneal dialysis catheter, initial encounter (principal); N18.6 End stage renal disease; K65.9 Peritonitis, unspecified; I13.2 Hypertensive heart and chronic kidney disease with heart failure and with stage 5 chronic kidney disease, or end stage renal disease; I50.32 Chronic diastolic (congestive) heart failure; N20.1 Calculus of ureter; I69.354 Hemiplegia and hemiparesis following cerebral infarction affecting left non-dominant side; I48.20 Chronic atrial fibrillation, unspecified; E87.1 Hypo-osmolality and hyponatremia; E87.2 Acidosis; N25.81 Secondary hyperparathyroidism of renal origin; K44.9 Diaphragmatic hernia without obstruction or gangrene; Z99.2 Dependence on renal dialysis; E11.22 Type 2 diabetes mellitus with diabetic chronic kidney disease; E78.5 Hyperlipidemia, unspecified; Z79.4 Long term (current) use of insulin; E87.6 Hypokalemia; Z79.01 Long term (current) use of anticoagulants; Z88.8 Allergy status to other drugs, medicaments and biological substances; Z79.899 Other long term (current) drug therapy; I69.398 Other sequelae of cerebral infarction; Z86.718 Personal history of other venous thrombosis and embolism; D63.1 Anemia in chronic kidney disease; Y84.1 Kidney dialysis as the cause of abnormal reaction of the patient, or of later complication, without mention of misadventure at the time of the procedure

== ENCOUNTER → 2022-04-29 | Outpatient (REF) | payer MEDICARE ==
[~2022-04-29] MED LIST changes: +LOPE1CAP5 PO
[2022-04-29 19:04] LABS: CHOLESTEROL RISK RATIO 3.058 (<5)
== END ==
LOC: M SFHCCLAY 15:13
PROVIDERS: ATTEND Physician Assistant
DX: E11.40 Type 2 diabetes mellitus with diabetic neuropathy, unspecified (principal)

== ENCOUNTER → 2022-05-15 | Outpatient (REF) | payer MEDICARE ==
[2022-05-15 18:58] LABS: ERYTHROCYTE SEDIMENTATION RATE 76 mm/hr (0-20)
[2022-05-15 19:00] LABS: BASO # 0.1 10^3/uL (0.0-0.2); BASO % 0.7 % (0.0-1.0); EOS # 0.2 10^3/uL (0.0-0.5); EOS % 2.1 % (0.0-3.0); HEMOGLOBIN 10.4 g/dl (13.5-17.5); LYMPH # 1.6 10^3/uL (1.5-5.0); LYMPH % 15.8 % (24.0-44.0); MEAN CORPUSCULAR HEMOGLOBIN 31.3 pg (27.0-33.0); MEAN CORPUSCULAR HGB CONC 32.5 g/dl (32.0-36.5); MEAN CORPUSCULAR VOLUME 96.4 fl (80.0-96.0); MONO # 0.7 10^3/uL (0.0-0.8); MONO % 6.8 % (2.0-8.0); NEUTROPHILS # 7.6 10^3/uL (1.5-8.5); NEUTROPHILS % 73.5 % (36.0-66.0); PLATELET COUNT, AUTOMATED 232 10^3/uL (150-450); RED BLOOD COUNT 3.32 10^6/uL (4.30-6.10); WHITE BLOOD COUNT 10.4 10^3/uL (4.0-10.0)
[2022-05-15 21:06] LABS: CALCIUM LEVEL 9.2 MG/DL (8.8-10.2); CREATININE FOR GFR 14.2 MG/DL (0.70-1.30); GLOMERULAR FILTRATION RATE 3.7 (>42); POTASSIUM SERUM 3.9 MEQ/L (3.5-5.1)
[2022-05-15 21:07] LABS: ALBUMIN 2.9 GM/DL (3.2-5.2); BILIRUBIN,TOTAL 0.4 MG/DL (0.2-1.0); C REACTIVE PROTEIN QUANTITATIV 0.53 MG/DL (0.00-0.30); PREALBUMIN 31.2 MG/DL (20.0-40.0); TOTAL PROTEIN 6.5 GM/DL (6.4-8.2)
== END ==
LOC: M LABDRAWC 17:31
PROVIDERS: ATTEND Surgery
DX: E11.622 Type 2 diabetes mellitus with other skin ulcer (principal); S81.002S Unspecified open wound, left knee, sequela; S81.001S Unspecified open wound, right knee, sequela; E11.59 Type 2 diabetes mellitus with other circulatory complications; E11.40 Type 2 diabetes mellitus with diabetic neuropathy, unspecified; I73.9 Peripheral vascular disease, unspecified; I48.91 Unspecified atrial fibrillation; I25.119 Atherosclerotic heart disease of native coronary artery with unspecified angina pectoris; I63.30 Cerebral infarction due to thrombosis of unspecified cerebral artery; I82.409 Acute embolism and thrombosis of unspecified deep veins of unspecified lower extremity; N18.6 End stage renal disease; M10.00 Idiopathic gout, unspecified site; G65.0 Sequelae of Guillain-Barre syndrome

== ENCOUNTER → 2022-05-23 | Outpatient (CLI) | payer MEDICARE | LOC: M PLARAD 14:30 | DX: E11.622 Type 2 diabetes mellitus with other skin ulcer (principal) ==

== ENCOUNTER → 2022-05-31 | Outpatient (CLI) | payer MEDICARE | LOC: M RAD 12:20 | PROVIDERS: ATTEND Surgery | DX: E11.622 Type 2 diabetes mellitus with other skin ulcer (principal) ==

== ENCOUNTER → 2022-06-14 | Outpatient (CLI) | payer MEDICARE ==
[~2022-06-14] MED LIST changes: -DOXY-350 PO; +DOXY-444 PO
[2022-06-14 15:48] LABS: BASO # 0.1 10^3/uL (0.0-0.2); BASO % 0.5 % (0.0-1.0); EOS # 0.1 10^3/uL (0.0-0.5); EOS % 1.1 % (0.0-3.0); HEMOGLOBIN 10.5 g/dl (13.5-17.5); LYMPH # 1.6 10^3/uL (1.5-5.0); LYMPH % 13.5 % (24.0-44.0); MEAN CORPUSCULAR HEMOGLOBIN 30.4 pg (27.0-33.0); MEAN CORPUSCULAR HGB CONC 30.9 g/dl (32.0-36.5); MEAN CORPUSCULAR VOLUME 98.6 fl (80.0-96.0); MONO # 0.9 10^3/uL (0.0-0.8); MONO % 7.4 % (2.0-8.0); NEUTROPHILS # 9.1 10^3/uL (1.5-8.5); NEUTROPHILS % 76.8 % (36.0-66.0); PLATELET COUNT, AUTOMATED 201 10^3/uL (150-450); RED BLOOD COUNT 3.45 10^6/uL (4.30-6.10); WHITE BLOOD COUNT 11.9 10^3/uL (4.0-10.0)
[2022-06-14 16:20] LABS: ALBUMIN 3.2 GM/DL (3.2-5.2); BILIRUBIN,TOTAL 0.4 MG/DL (0.2-1.0); C REACTIVE PROTEIN QUANTITATIV 0.3 MG/DL (0.00-0.30); CALCIUM LEVEL 9.5 MG/DL (8.8-10.2); CREATININE FOR GFR 14.7 MG/DL (0.70-1.30); GLOMERULAR FILTRATION RATE 3.5 (>42); TOTAL PROTEIN 6.9 GM/DL (6.4-8.2)
[2022-06-14 17:11] LABS: PREALBUMIN 31.9 MG/DL (20.0-40.0)
[2022-06-14 17:28] LABS: ERYTHROCYTE SEDIMENTATION RATE 80 mm/hr (0-20)
== END ==
LOC: M LAB 15:01
PROVIDERS: ATTEND Surgery
DX: E11.621 Type 2 diabetes mellitus with foot ulcer (principal)

== ENCOUNTER → 2022-06-21 | Outpatient (CLI) | payer MEDICARE | LOC: M RAD 16:05 | PROVIDERS: ATTEND Surgery | DX: E11.622 Type 2 diabetes mellitus with other skin ulcer (principal); S91.301S Unspecified open wound, right foot, sequela; E11.59 Type 2 diabetes mellitus with other circulatory complications; E11.40 Type 2 diabetes mellitus with diabetic neuropathy, unspecified; I73.9 Peripheral vascular disease, unspecified; E11.51 Type 2 diabetes mellitus with diabetic peripheral angiopathy without gangrene; I48.91 Unspecified atrial fibrillation; I25.119 Atherosclerotic heart disease of native coronary artery with unspecified angina pectoris; I63.30 Cerebral infarction due to thrombosis of unspecified cerebral artery; I82.409 Acute embolism and thrombosis of unspecified deep veins of unspecified lower extremity; N18.6 End stage renal disease; E11.22 Type 2 diabetes mellitus with diabetic chronic kidney disease; M10.00 Idiopathic gout, unspecified site; G65.0 Sequelae of Guillain-Barre syndrome; S91.105 Unspecified open wound of left lesser toe(s) without damage to nail ==

== ENCOUNTER → 2022-06-24 | Outpatient (CLI) | payer MEDICARE | LOC: M RAD 11:34 | PROVIDERS: ATTEND Surgery | DX: E11.621 Type 2 diabetes mellitus with foot ulcer (principal) ==

== ENCOUNTER → 2022-07-15 | Outpatient (REF) | payer MEDICARE ==
[2022-07-15 11:53] LABS: BASO # 0.1 10^3/uL (0.0-0.2); BASO % 0.6 % (0.0-1.0); EOS # 0.1 10^3/uL (0.0-0.5); EOS % 1.1 % (0.0-3.0); HEMOGLOBIN 9.9 g/dl (13.5-17.5); LYMPH # 1.5 10^3/uL (1.5-5.0); LYMPH % 13.8 % (24.0-44.0); MEAN CORPUSCULAR HEMOGLOBIN 30.1 pg (27.0-33.0); MEAN CORPUSCULAR HGB CONC 30.9 g/dl (32.0-36.5); MEAN CORPUSCULAR VOLUME 97.3 fl (80.0-96.0); MONO # 0.8 10^3/uL (0.0-0.8); NEUTROPHILS # 8.6 10^3/uL (1.5-8.5); NEUTROPHILS % 77.1 % (36.0-66.0); PLATELET COUNT, AUTOMATED 269 10^3/uL (150-450); RED BLOOD COUNT 3.29 10^6/uL (4.30-6.10); WHITE BLOOD COUNT 11.1 10^3/uL (4.0-10.0)
[2022-07-15 12:22] LABS: PREALBUMIN 27.7 MG/DL (10.0-40.0)
[2022-07-15 12:25] LABS: ALBUMIN 2.9 G/DL (3.2-5.2); ALKALINE PHOSPHATASE 85 U/L (46-116); ALT/SGPT 20 U/L (7.0-40); AST/SGOT 13 U/L (<34); BILIRUBIN,TOTAL < 0.2 MG/DL (0.3-1.2); BLOOD UREA NITROGEN 58 MG/DL (9-23); CALCIUM LEVEL 9.3 MG/DL (8.3-10.6); CARBON DIOXIDE LEVEL 27 MMOL/L (20-31); CHLORIDE LEVEL 98 MMOL/L (98-107); CREATININE FOR GFR 12.48 MG/DL (0.70-1.30); GLOMERULAR FILTRATION RATE 4.2 (>42); GLUCOSE, FASTING 163 MG/DL (74-106); POTASSIUM SERUM 4.7 MMOL/L (3.5-5.1); SODIUM LEVEL 138 MMOL/L (136-145); TOTAL PROTEIN 6.2 G/DL (5.7-8.2)
[2022-07-15 12:52] LABS: ERYTHROCYTE SEDIMENTATION RATE 105 mm/hr (0-20)
[2022-07-15 16:27] LABS: HEMOGLOBIN A1c 6.4 % (4.0-6.0)
== END ==
LOC: M LABDRAWC 11:26
PROVIDERS: ATTEND Surgery
DX: E11.621 Type 2 diabetes mellitus with foot ulcer (principal)

== ENCOUNTER 2022-07-23 15:30 | Day surgery (SDC) | payer MEDICARE ==
[~2022-07-23] VITALS: Ht 180.3 cm; Wt 109.3 kg
[~2022-07-23 15:30] MED LIST changes: +DOXY100C3; +LR 1,000 ML IV SCH; +ceFAZolin SOD 2 GM in IV 1 EA IV ONE
[2022-07-23] MEDS ORDERED: BUPIVACAINE HCL 0.5% 30ML VIAL As Ordered ONE (16:05)
[2022-07-23] MEDS ORDERED: LIDOCAINE 2% MDV 20ML VIAL As Ordered ONE (16:05)
[2022-07-23] MEDS ORDERED: propofoL 200 MG/20 ML VIAL As Ordered ONE (16:07)
[2022-07-23] MEDS ORDERED: LIDOCAINE 2% 100MG/5ML SDV (FOR ANES.) As Ordered ONE (16:07)
[2022-07-23] MEDS ORDERED: fentaNYL 100 MCG/2 ML INJECTION As Ordered ONE (16:12)
[2022-07-23] MEDS ORDERED: D5W/0.45% SODIUM CHLORIDE 1,000 ML IV SCH (16:25)
[2022-07-23] MEDS ORDERED: ONDANSETRON 4MG 2ML VIAL As Ordered ONE (16:48)
[2022-07-23] MEDS ORDERED: GENTAMICIN SULF 80MG/2ML VIAL As Ordered ONE (17:19)
[2022-07-23 18:20] VITALS: BP 142/78
== END 2022-07-23 18:25 | disposition home or self-care (01) ==
LOC: M SDC 15:30 → EEVIPCON 15:30 → M SDC 18:25
PROVIDERS: ATTEND Podiatrist
DX: M86.672 Other chronic osteomyelitis, left ankle and foot (principal); E11.9 Type 2 diabetes mellitus without complications; I48.91 Unspecified atrial fibrillation; Z88.1 Allergy status to other antibiotic agents; Z79.4 Long term (current) use of insulin; Z79.899 Other long term (current) drug therapy; Z99.2 Dependence on renal dialysis; Z66 Do not resuscitate
CPT/HCPCS: 28825; 36415; 73630; 84132; 87070; 87075; 87077; 87186; 87205; 87635; 88304; 88311; J0690; J1580; J2405; J3010

== ENCOUNTER → 2022-08-14 | Outpatient (CLI) | payer MEDICARE ==
[~2022-08-14] MED LIST changes: -LR 1,000 ML IV SCH; -ceFAZolin SOD 2 GM in IV 1 EA IV ONE
== END ==
LOC: M CLY 09:56
PROVIDERS: ATTEND Family Medicine
DX: M25.78 Osteophyte, vertebrae (principal)

== ENCOUNTER → 2022-08-19 | Outpatient (REF) | payer MEDICARE ==
[~2022-08-19] MED LIST changes: +AMOX500T2 PO; +MIDO5TA PO
== END ==
LOC: M LAB REF 16:16
PROVIDERS: ATTEND Podiatrist
DX: M79.672 Pain in left foot (principal); L03.119 Cellulitis of unspecified part of limb

== ENCOUNTER 2022-08-22 15:37 | Inpatient (IN) | payer MEDICARE ==
[~2022-08-22] VITALS: Ht 180.3 cm; Wt 109.2 kg
[~2022-08-22 15:37] MED LIST changes: -AMOX500T2 PO; +INSU100I6 SC; -LEVE1INJ5 SC; -MIDO5TA PO
[2022-08-22] MEDS ORDERED: MEROPENEM INJ 1 GM in IV 1 EA IV ONE (16:10)
[2022-08-22 16:58] LABS: BASO # 0.1 10^3/uL (0.0-0.2); BASO % 0.5 % (0.0-1.0); EOS # 0.1 10^3/uL (0.0-0.5); EOS % 0.3 % (0.0-3.0); HEMATOCRIT 31.3 % (42.0-52.0); HEMOGLOBIN 9.8 g/dl (13.5-17.5); LYMPH # 1.4 10^3/uL (1.5-5.0); MEAN CORPUSCULAR HEMOGLOBIN 30.8 pg (27.0-33.0); MEAN CORPUSCULAR HGB CONC 31.3 g/dl (32.0-36.5); MEAN CORPUSCULAR VOLUME 98.4 fl (80.0-96.0); MONO # 1.1 10^3/uL (0.0-0.8); MONO % 5.7 % (2.0-8.0); NEUTROPHILS # 16.7 10^3/uL (1.5-8.5); NEUTROPHILS % 85.3 % (36.0-66.0); PLATELET COUNT, AUTOMATED 326 10^3/uL (150-450); RED BLOOD COUNT 3.18 10^6/uL (4.30-6.10); WHITE BLOOD COUNT 19.6 10^3/uL (4.0-10.0)
[2022-08-22 17:07] LABS: ERYTHROCYTE SEDIMENTATION RATE 61 mm/hr (0-20)
[2022-08-22 17:20] LABS: BILIRUBIN,DIRECT < 0.1 MG/DL (<0.4)
[2022-08-22] MEDS ORDERED: MIDO5TA PO (17:20)
[2022-08-22 17:29] LABS: RSV AMPLIFICATION NEGATIVE (NEGATIVE)
[2022-08-22 17:30] LABS: ALBUMIN 2.7 G/DL (3.2-5.2); ALKALINE PHOSPHATASE 93 U/L (46-116); ALT/SGPT 22 U/L (7.0-40); AST/SGOT 14 U/L (<34); BILIRUBIN,TOTAL < 0.2 MG/DL (0.3-1.2); BLOOD UREA NITROGEN 54 MG/DL (9-23); CALCIUM LEVEL 8.5 MG/DL (8.3-10.6); CARBON DIOXIDE LEVEL 27 MMOL/L (20-31); CHLORIDE LEVEL 93 MMOL/L (98-107); CREATININE FOR GFR 12.65 MG/DL (0.70-1.30); GLOMERULAR FILTRATION RATE 4.2 (>42); GLUCOSE, FASTING 201 MG/DL (74-106); POTASSIUM SERUM 4.1 MMOL/L (3.5-5.1); SODIUM LEVEL 136 MMOL/L (136-145); TOTAL PROTEIN 6.6 G/DL (5.7-8.2)
[2022-08-22] MEDS ORDERED: PERCOCET 5MG/325MG TAB PO ONE (18:20)
[2022-08-22] MEDS ORDERED: AMOX500T2 PO (18:29)
[2022-08-22] MEDS ORDERED: HOME MED LIST COMPLETE! XX SCH (18:35)
[2022-08-22] MEDS ORDERED: DEXTROSE 50% 50ML SYRINGE IV PRN (19:15)
[2022-08-22] MEDS ORDERED: GLUCOSE 4GM CHEW TABLET PO PRN (19:15)
[2022-08-22] MEDS ORDERED: GLUCAGON INJ 1MG VIAL SC PRN (19:15)
[2022-08-22 20:29] LABS: HEMOGLOBIN A1c 5.9 % (4.0-6.0)
[2022-08-22] MEDS: TAMSULOSIN 0.4 MG CAP PO SCH ×2 (21:00→23:06)
[2022-08-22] MEDS: (RENVELA) SEVELAMER **CARBONate** 800 MG TAB PO SCH (21:00)
[2022-08-22] MEDS: SUCROFERRIC OXYHYDROXIDE 500MG CHEW TAB (VELPHORO) PO SCH (21:00)
[2022-08-22] MEDS ORDERED: MIDODRINE 5 MG TAB PO PRN (21:00)
[2022-08-22] MEDS: INSULIN LISPRO (NovoLOG) PER UNIT SC SCH (21:00)
[2022-08-22 21:32] VITALS: BP 111/77
[2022-08-22] MEDS ORDERED: SODIUM CHLORIDE 0.9% 250ML IV ONE ×2 (22:30→23:25)
[2022-08-22 23:05] VITALS: BP 78/52
[2022-08-22] MEDS: APIXABAN 5 MG TAB (ELIQUIS) PO SCH (23:06)
[2022-08-22] MEDS: ATORVASTATIN 20 MG TAB PO SCH (23:06)
[2022-08-22] MEDS: METOPROLOL TART 25 MG TABLET PO ONE ×2 (23:08→23:15)
[2022-08-22] MEDS ORDERED: MIDODRINE 5 MG TAB PO ONE (23:15)
[2022-08-22 23:30] VITALS: BP 95/63
[2022-08-22] MEDS ORDERED: NS 250 ML IV ONE (23:30)
[2022-08-22 23:56] VITALS: BP 96/63
[2022-08-23] VITALS (16 sets, daily range): BP systolic 90–120; BP diastolic 50–73
[2022-08-23] MEDS ORDERED: SODIUM CHLORIDE 0.9% 250ML IV ONE (00:50)
[2022-08-23] MEDS ORDERED: diltiaZEM 125 MG in NS 100 ML IV SCH (02:00)
[2022-08-23] MEDS ORDERED: MEROPENEM INJ 1 GM in IV 1 EA IV SCH (02:00)
[2022-08-23 04:51] LABS: BASO # 0.1 10^3/uL (0.0-0.2); BASO % 0.6 % (0.0-1.0); EOS # 0.2 10^3/uL (0.0-0.5); EOS % 0.9 % (0.0-3.0); HEMATOCRIT 28.7 % (42.0-52.0); HEMOGLOBIN 8.9 g/dl (13.5-17.5); LYMPH # 2.2 10^3/uL (1.5-5.0); LYMPH % 13.8 % (24.0-44.0); MEAN CORPUSCULAR HEMOGLOBIN 30.2 pg (27.0-33.0); MEAN CORPUSCULAR VOLUME 97.3 fl (80.0-96.0); MONO % 6.4 % (2.0-8.0); NEUTROPHILS # 12.4 10^3/uL (1.5-8.5); NEUTROPHILS % 77.4 % (36.0-66.0); PLATELET COUNT, AUTOMATED 282 10^3/uL (150-450); RED BLOOD COUNT 2.95 10^6/uL (4.30-6.10)
[2022-08-23 05:42] LABS: CALCIUM LEVEL 8.3 MG/DL (8.3-10.6); CREATININE FOR GFR 12.77 MG/DL (0.70-1.30); GLOMERULAR FILTRATION RATE 4.1 (>42); POTASSIUM SERUM 3.9 MMOL/L (3.5-5.1)
[2022-08-23] MEDS: MIDODRINE 5 MG TAB PO SCH ×3 (08:00→16:25)
[2022-08-23] MEDS: INSULIN LISPRO (NovoLOG) PER UNIT SC SCH ×4 (08:50→21:00)
[2022-08-23] MEDS: SUCROFERRIC OXYHYDROXIDE 500MG CHEW TAB (VELPHORO) PO SCH ×3 (08:51→21:00)
[2022-08-23] MEDS: (RENVELA) SEVELAMER **CARBONate** 800 MG TAB PO SCH ×3 (08:51→22:03)
[2022-08-23] MEDS: APIXABAN 5 MG TAB (ELIQUIS) PO SCH ×2 (08:51→22:03)
[2022-08-23] MEDS: MEROPENEM INJ 500 MG in IV 1 EA IV SCH (17:40)
[2022-08-23] MEDS: TAMSULOSIN 0.4 MG CAP PO SCH (22:03)
[2022-08-23] MEDS: LEVEMIR (INSULIN DETEMIR) 1 UNITS/0.01ML SC SCH (22:04)
[2022-08-23] MEDS: ATORVASTATIN 20 MG TAB PO SCH (22:04)
[2022-08-24 03:59] VITALS: BP 138/75
[2022-08-24 05:34] LABS: BASO # 0.1 10^3/uL (0.0-0.2); BASO % 0.4 % (0.0-1.0); EOS # 0.1 10^3/uL (0.0-0.5); EOS % 0.7 % (0.0-3.0); HEMATOCRIT 29.2 % (42.0-52.0); HEMOGLOBIN 9.3 g/dl (13.5-17.5); LYMPH # 1.4 10^3/uL (1.5-5.0); LYMPH % 8.5 % (24.0-44.0); MEAN CORPUSCULAR HEMOGLOBIN 30.5 pg (27.0-33.0); MEAN CORPUSCULAR HGB CONC 31.8 g/dl (32.0-36.5); MEAN CORPUSCULAR VOLUME 95.7 fl (80.0-96.0); MONO % 6.2 % (2.0-8.0); NEUTROPHILS # 13.6 10^3/uL (1.5-8.5); NEUTROPHILS % 83.3 % (36.0-66.0); PLATELET COUNT, AUTOMATED 299 10^3/uL (150-450); RED BLOOD COUNT 3.05 10^6/uL (4.30-6.10); WHITE BLOOD COUNT 16.4 10^3/uL (4.0-10.0)
[2022-08-24 06:00] VITALS: BP 132/72
[2022-08-24 06:01] LABS: CREATININE FOR GFR 11.89 MG/DL (0.70-1.30); GLOMERULAR FILTRATION RATE 4.5 (>42); POTASSIUM SERUM 4.2 MMOL/L (3.5-5.1)
[2022-08-24 08:00] VITALS: BP 112/59
[2022-08-24] MEDS: INSULIN LISPRO (NovoLOG) PER UNIT SC SCH ×4 (08:13→21:00)
[2022-08-24] MEDS: MIDODRINE 5 MG TAB PO SCH ×4 (08:14→16:00)
[2022-08-24] MEDS: SUCROFERRIC OXYHYDROXIDE 500MG CHEW TAB (VELPHORO) PO SCH ×3 (08:16→21:11)
[2022-08-24] MEDS: APIXABAN 5 MG TAB (ELIQUIS) PO SCH (08:16)
[2022-08-24] MEDS: (RENVELA) SEVELAMER **CARBONate** 800 MG TAB PO SCH ×3 (08:16→21:12)
[2022-08-24 16:00] VITALS: BP 120/61
[2022-08-24] MEDS: MEROPENEM INJ 500 MG in IV 1 EA IV SCH (17:41)
[2022-08-24 20:00] VITALS: BP 114/61
[2022-08-24] MEDS: TAMSULOSIN 0.4 MG CAP PO SCH (21:12)
[2022-08-24] MEDS: LEVEMIR (INSULIN DETEMIR) 1 UNITS/0.01ML SC SCH (21:12)
[2022-08-24] MEDS: ATORVASTATIN 20 MG TAB PO SCH (21:12)
[2022-08-25 03:53] VITALS: BP 134/67
[2022-08-25 05:36] LABS: BASO # 0.1 10^3/uL (0.0-0.2); BASO % 0.5 % (0.0-1.0); EOS # 0.2 10^3/uL (0.0-0.5); EOS % 1.3 % (0.0-3.0); HEMATOCRIT 26.2 % (42.0-52.0); HEMOGLOBIN 8.2 g/dl (13.5-17.5); LYMPH # 1.8 10^3/uL (1.5-5.0); MEAN CORPUSCULAR HEMOGLOBIN 30.3 pg (27.0-33.0); MEAN CORPUSCULAR HGB CONC 31.3 g/dl (32.0-36.5); MEAN CORPUSCULAR VOLUME 96.7 fl (80.0-96.0); MONO % 6.9 % (2.0-8.0); NEUTROPHILS # 10.9 10^3/uL (1.5-8.5); NEUTROPHILS % 77.7 % (36.0-66.0); PLATELET COUNT, AUTOMATED 281 10^3/uL (150-450); RED BLOOD COUNT 2.71 10^6/uL (4.30-6.10); WHITE BLOOD COUNT 14.1 10^3/uL (4.0-10.0)
[2022-08-25 06:04] LABS: CALCIUM LEVEL 8.6 MG/DL (8.3-10.6); CREATININE FOR GFR 11.65 MG/DL (0.70-1.30); GLOMERULAR FILTRATION RATE 4.6 (>42); PHOSPHORUS LEVEL 4.6 MG/DL (2.4-5.1)
[2022-08-25 08:00] VITALS: BP 116/57
[2022-08-25] MEDS: MIDODRINE 5 MG TAB PO SCH ×3 (08:00→16:00)
[2022-08-25] MEDS: (RENVELA) SEVELAMER **CARBONate** 800 MG TAB PO SCH ×3 (08:25→21:21)
[2022-08-25] MEDS: SUCROFERRIC OXYHYDROXIDE 500MG CHEW TAB (VELPHORO) PO SCH ×3 (08:25→22:29)
[2022-08-25] MEDS: INSULIN LISPRO (NovoLOG) PER UNIT SC SCH ×4 (08:27→21:20)
[2022-08-25] MEDS ORDERED: CYCLOBENZAPRINE 5MG TABLET PO ONE (09:00)
[2022-08-25] MEDS: DARBEPOETIN 100MCG/0.5ML *NON-DIALYSIS* SYRINGE SC SCH (10:28)
[2022-08-25 12:00] VITALS: BP 104/66
[2022-08-25 17:07] VITALS: BP 141/67
[2022-08-25] MEDS: MEROPENEM INJ 500 MG in IV 1 EA IV SCH (17:44)
[2022-08-25 19:29] VITALS: BP 133/68
[2022-08-25] MEDS: LEVEMIR (INSULIN DETEMIR) 1 UNITS/0.01ML SC SCH (21:21)
[2022-08-25] MEDS: ATORVASTATIN 20 MG TAB PO SCH (21:21)
[2022-08-25] MEDS: TAMSULOSIN 0.4 MG CAP PO SCH (21:21)
[2022-08-26] VITALS (10 sets, daily range): BP systolic 98–133; BP diastolic 56–88
[2022-08-26 06:05] LABS: BASO # 0.1 10^3/uL (0.0-0.2); BASO % 0.5 % (0.0-1.0); EOS # 0.2 10^3/uL (0.0-0.5); EOS % 1.5 % (0.0-3.0); HEMATOCRIT 27.7 % (42.0-52.0); HEMOGLOBIN 8.6 g/dl (13.5-17.5); LYMPH # 1.4 10^3/uL (1.5-5.0); LYMPH % 10.5 % (24.0-44.0); MEAN CORPUSCULAR HEMOGLOBIN 30.3 pg (27.0-33.0); MEAN CORPUSCULAR VOLUME 97.5 fl (80.0-96.0); MONO % 7.1 % (2.0-8.0); NEUTROPHILS # 10.8 10^3/uL (1.5-8.5); NEUTROPHILS % 79.4 % (36.0-66.0); PLATELET COUNT, AUTOMATED 262 10^3/uL (150-450); RED BLOOD COUNT 2.84 10^6/uL (4.30-6.10); WHITE BLOOD COUNT 13.6 10^3/uL (4.0-10.0)
[2022-08-26 06:41] LABS: CALCIUM LEVEL 8.4 MG/DL (8.3-10.6); CREATININE FOR GFR 11.22 MG/DL (0.70-1.30); GLOMERULAR FILTRATION RATE 4.8 (>42); POTASSIUM SERUM 3.9 MMOL/L (3.5-5.1)
[2022-08-26] MEDS: MIDODRINE 5 MG TAB PO SCH ×3 (07:41→16:00)
[2022-08-26] MEDS: SUCROFERRIC OXYHYDROXIDE 500MG CHEW TAB (VELPHORO) PO SCH ×3 (07:47→19:50)
[2022-08-26] MEDS: INSULIN LISPRO (NovoLOG) PER UNIT SC SCH ×4 (07:47→21:00)
[2022-08-26] MEDS: (RENVELA) SEVELAMER **CARBONate** 800 MG TAB PO SCH ×3 (07:47→19:50)
[2022-08-26] MEDS ORDERED: propofoL 200 MG/20 ML VIAL As Ordered ONE (16:22)
[2022-08-26] MEDS ORDERED: fentaNYL 100 MCG/2 ML INJECTION As Ordered ONE (16:22)
[2022-08-26] MEDS ORDERED: ONDANSETRON 4MG 2ML VIAL As Ordered ONE (16:22)
[2022-08-26] MEDS ORDERED: MIDAZOLAM INJ 2MG/2ML VIAL As Ordered ONE (16:22)
[2022-08-26] MEDS ORDERED: LIDOCAINE 2% 100MG/5ML SDV (FOR ANES.) As Ordered ONE (16:22)
[2022-08-26] MEDS ORDERED: LIDOCAINE 2% MDV 20ML VIAL As Ordered ONE (16:26)
[2022-08-26] MEDS ORDERED: BUPIVACAINE HCL 0.5% 30ML VIAL As Ordered ONE (16:26)
[2022-08-26] MEDS ORDERED: GENTAMICIN SULF 80MG/2ML VIAL As Ordered ONE (17:15)
[2022-08-26] MEDS ORDERED: NS 1,000 ML IV SCH (18:10)
[2022-08-26] MEDS: MEROPENEM INJ 500 MG in IV 1 EA IV SCH (19:51)
[2022-08-26] MEDS: ATORVASTATIN 20 MG TAB PO SCH (21:04)
[2022-08-26] MEDS: TAMSULOSIN 0.4 MG CAP PO SCH (21:04)
[2022-08-26] MEDS: LEVEMIR (INSULIN DETEMIR) 1 UNITS/0.01ML SC SCH (21:04)
[2022-08-27 04:55] LABS: BASO # 0.1 10^3/uL (0.0-0.2); BASO % 0.5 % (0.0-1.0); EOS # 0.2 10^3/uL (0.0-0.5); EOS % 1.4 % (0.0-3.0); HEMOGLOBIN 8.2 g/dl (13.5-17.5); LYMPH % 8.1 % (24.0-44.0); MEAN CORPUSCULAR HEMOGLOBIN 29.7 pg (27.0-33.0); MEAN CORPUSCULAR HGB CONC 30.4 g/dl (32.0-36.5); MEAN CORPUSCULAR VOLUME 97.8 fl (80.0-96.0); MONO # 0.8 10^3/uL (0.0-0.8); NEUTROPHILS # 10.4 10^3/uL (1.5-8.5); NEUTROPHILS % 83.3 % (36.0-66.0); PLATELET COUNT, AUTOMATED 263 10^3/uL (150-450); RED BLOOD COUNT 2.76 10^6/uL (4.30-6.10); WHITE BLOOD COUNT 12.5 10^3/uL (4.0-10.0)
[2022-08-27 05:06] VITALS: BP 123/64
[2022-08-27 05:27] LABS: CALCIUM LEVEL 8.4 MG/DL (8.3-10.6); CREATININE FOR GFR 11.23 MG/DL (0.70-1.30); GLOMERULAR FILTRATION RATE 4.8 (>42); POTASSIUM SERUM 4.5 MMOL/L (3.5-5.1)
[2022-08-27] MEDS: MIDODRINE 5 MG TAB PO SCH ×3 (08:00→16:00)
[2022-08-27] MEDS: (RENVELA) SEVELAMER **CARBONate** 800 MG TAB PO SCH ×3 (08:00→17:41)
[2022-08-27] MEDS: SUCROFERRIC OXYHYDROXIDE 500MG CHEW TAB (VELPHORO) PO SCH ×3 (08:00→17:41)
[2022-08-27 08:23] VITALS: BP 113/58
[2022-08-27] MEDS: INSULIN LISPRO (NovoLOG) PER UNIT SC SCH ×4 (09:17→20:15)
[2022-08-27 16:00] VITALS: BP 135/64
[2022-08-27] MEDS: MEROPENEM INJ 500 MG in IV 1 EA IV SCH (18:35)
[2022-08-27 19:48] VITALS: BP 110/62
[2022-08-27] MEDS: TAMSULOSIN 0.4 MG CAP PO SCH (20:14)
[2022-08-27] MEDS: ATORVASTATIN 20 MG TAB PO SCH (20:14)
[2022-08-27] MEDS: APIXABAN 5 MG TAB (ELIQUIS) PO SCH (20:14)
[2022-08-27] MEDS: LEVEMIR (INSULIN DETEMIR) 1 UNITS/0.01ML SC SCH (20:15)
[2022-08-28 04:49] LABS: BASO # 0.1 10^3/uL (0.0-0.2); BASO % 0.5 % (0.0-1.0); EOS # 0.2 10^3/uL (0.0-0.5); EOS % 1.9 % (0.0-3.0); HEMATOCRIT 25.8 % (42.0-52.0); HEMOGLOBIN 8.1 g/dl (13.5-17.5); LYMPH # 1.1 10^3/uL (1.5-5.0); LYMPH % 9.5 % (24.0-44.0); MEAN CORPUSCULAR HEMOGLOBIN 30.7 pg (27.0-33.0); MEAN CORPUSCULAR HGB CONC 31.4 g/dl (32.0-36.5); MEAN CORPUSCULAR VOLUME 97.7 fl (80.0-96.0); MONO # 0.8 10^3/uL (0.0-0.8); MONO % 7.2 % (2.0-8.0); NEUTROPHILS # 9.2 10^3/uL (1.5-8.5); NEUTROPHILS % 80.2 % (36.0-66.0); PLATELET COUNT, AUTOMATED 240 10^3/uL (150-450); RED BLOOD COUNT 2.64 10^6/uL (4.30-6.10); WHITE BLOOD COUNT 11.5 10^3/uL (4.0-10.0)
[2022-08-28 05:18] LABS: CALCIUM LEVEL 8.1 MG/DL (8.3-10.6); CREATININE FOR GFR 11.12 MG/DL (0.70-1.30); GLOMERULAR FILTRATION RATE 4.9 (>42)
[2022-08-28 05:21] VITALS: BP 127/59
[2022-08-28] MEDS: MIDODRINE 5 MG TAB PO SCH ×3 (08:02→16:38)
[2022-08-28] MEDS: INSULIN LISPRO (NovoLOG) PER UNIT SC SCH ×4 (08:02→20:06)
[2022-08-28] MEDS: (RENVELA) SEVELAMER **CARBONate** 800 MG TAB PO SCH ×3 (08:02→17:17)
[2022-08-28] MEDS: SUCROFERRIC OXYHYDROXIDE 500MG CHEW TAB (VELPHORO) PO SCH ×3 (08:02→17:17)
[2022-08-28] MEDS: APIXABAN 5 MG TAB (ELIQUIS) PO SCH ×2 (08:11→20:06)
[2022-08-28] MEDS: PERCOCET 5MG/325MG TAB PO PRN (08:17)
[2022-08-28 08:23] VITALS: BP 118/56
[2022-08-28 11:37] VITALS: BP 100/58
[2022-08-28] MEDS: MEROPENEM INJ 500 MG in IV 1 EA IV SCH (18:11)
[2022-08-28] MEDS: LEVEMIR (INSULIN DETEMIR) 1 UNITS/0.01ML SC SCH (20:05)
[2022-08-28] MEDS: TAMSULOSIN 0.4 MG CAP PO SCH (20:06)
[2022-08-28] MEDS: ATORVASTATIN 20 MG TAB PO SCH (20:06)
[2022-08-28 20:42] VITALS: BP 132/68
[2022-08-29] VITALS: BP 120/62
[2022-08-29] MEDS ORDERED: ONDANSETRON 4MG 2ML VIAL IV PRN (02:00)
[2022-08-29 04:17] VITALS: BP 111/63
[2022-08-29 05:07] LABS: BASO % 0.4 % (0.0-1.0); EOS # 0.2 10^3/uL (0.0-0.5); EOS % 1.8 % (0.0-3.0); HEMOGLOBIN 8.4 g/dl (13.5-17.5); LYMPH # 1.9 10^3/uL (1.5-5.0); LYMPH % 16.6 % (24.0-44.0); MEAN CORPUSCULAR HEMOGLOBIN 30.9 pg (27.0-33.0); MEAN CORPUSCULAR HGB CONC 32.3 g/dl (32.0-36.5); MEAN CORPUSCULAR VOLUME 95.6 fl (80.0-96.0); MONO # 0.8 10^3/uL (0.0-0.8); MONO % 6.7 % (2.0-8.0); NEUTROPHILS # 8.2 10^3/uL (1.5-8.5); NEUTROPHILS % 73.7 % (36.0-66.0); PLATELET COUNT, AUTOMATED 249 10^3/uL (150-450); RED BLOOD COUNT 2.72 10^6/uL (4.30-6.10); WHITE BLOOD COUNT 11.2 10^3/uL (4.0-10.0)
[2022-08-29 05:47] LABS: CALCIUM LEVEL 8.5 MG/DL (8.3-10.6); CREATININE FOR GFR 11.28 MG/DL (0.70-1.30); GLOMERULAR FILTRATION RATE 4.8 (>42); POTASSIUM SERUM 4.1 MMOL/L (3.5-5.1)
[2022-08-29] MEDS: SUCROFERRIC OXYHYDROXIDE 500MG CHEW TAB (VELPHORO) PO SCH ×4 (08:00→17:14)
[2022-08-29] MEDS: INSULIN LISPRO (NovoLOG) PER UNIT SC SCH ×4 (08:13→20:33)
[2022-08-29] MEDS: (RENVELA) SEVELAMER **CARBONate** 800 MG TAB PO SCH ×3 (08:13→17:14)
[2022-08-29] MEDS: APIXABAN 5 MG TAB (ELIQUIS) PO SCH ×2 (08:14→20:32)
[2022-08-29] MEDS: MIDODRINE 5 MG TAB PO SCH ×3 (08:14→16:00)
[2022-08-29 08:15] VITALS: BP 103/50
[2022-08-29 12:33] LABS: C REACTIVE PROTEIN QUANTITATIV 5.1 MG/DL (<1.0)
[2022-08-29 13:00] VITALS: BP 100/72
[2022-08-29 16:00] VITALS: BP 116/62
[2022-08-29] MEDS: HEPARIN SOD (PORCINE) 5000UNITS/ML 1ML VIAL/SYRINGE PD SCH ×2 (17:17→21:13)
[2022-08-29] MEDS ORDERED: MEROPENEM INJ 500 MG in IV 1 EA IV ONE (18:00)
[2022-08-29] MEDS: PERCOCET 5MG/325MG TAB PO PRN (18:21)
[2022-08-29 20:16] VITALS: BP 141/68
[2022-08-29] MEDS: TAMSULOSIN 0.4 MG CAP PO SCH (20:32)
[2022-08-29] MEDS: ATORVASTATIN 20 MG TAB PO SCH (20:32)
[2022-08-29] MEDS: LEVEMIR (INSULIN DETEMIR) 1 UNITS/0.01ML SC SCH (20:35)
[2022-08-30 04:16] VITALS: BP 107/57
[2022-08-30 05:21] LABS: HEMATOCRIT 26.8 % (42.0-52.0); HEMOGLOBIN 8.4 g/dl (13.5-17.5); MEAN CORPUSCULAR HGB CONC 31.3 g/dl (32.0-36.5); MEAN CORPUSCULAR VOLUME 95.7 fl (80.0-96.0); PLATELET COUNT, AUTOMATED 240 10^3/uL (150-450); WHITE BLOOD COUNT 11.3 10^3/uL (4.0-10.0)
[2022-08-30] MEDS: HEPARIN SOD (PORCINE) 5000UNITS/ML 1ML VIAL/SYRINGE PD SCH ×3 (05:30→14:32)
[2022-08-30 05:44] LABS: C REACTIVE PROTEIN QUANTITATIV 4.2 MG/DL (<1.0)
[2022-08-30 05:49] LABS: ALBUMIN 2.3 G/DL (3.2-5.2); CALCIUM LEVEL 8.4 MG/DL (8.3-10.6); CREATININE FOR GFR 11.51 MG/DL (0.70-1.30); GLOMERULAR FILTRATION RATE 4.7 (>42); PHOSPHORUS LEVEL 3.8 MG/DL (2.4-5.1); POTASSIUM SERUM 3.8 MMOL/L (3.5-5.1)
[2022-08-30 07:37] VITALS: BP 118/60
[2022-08-30] MEDS: SUCROFERRIC OXYHYDROXIDE 500MG CHEW TAB (VELPHORO) PO SCH ×3 (08:21→17:36)
[2022-08-30] MEDS: MIDODRINE 5 MG TAB PO SCH ×3 (08:21→16:00)
[2022-08-30] MEDS: (RENVELA) SEVELAMER **CARBONate** 800 MG TAB PO SCH ×3 (08:21→17:37)
[2022-08-30] MEDS: PERCOCET 5MG/325MG TAB PO PRN ×2 (08:22→14:32)
[2022-08-30] MEDS: APIXABAN 5 MG TAB (ELIQUIS) PO SCH ×2 (08:22→20:56)
[2022-08-30] MEDS: INSULIN LISPRO (NovoLOG) PER UNIT SC SCH ×4 (08:24→20:55)
[2022-08-30] MEDS ORDERED: LIDOCAINE 1% MDV 20ML VIAL As Ordered ONE (09:09)
[2022-08-30] MEDS ORDERED: CARD120C3 PO (10:58)
[2022-08-30] MEDS ORDERED: SODIUM CHLORIDE 0.9% INJ 10 ML SYR IV PRN (13:20)
[2022-08-30 15:56] VITALS: BP 121/44
[2022-08-30] MEDS: MEROPENEM INJ 500 MG in IV 1 EA IV SCH (17:37)
[2022-08-30] MEDS: SODIUM CHLORIDE 0.9% INJ 10 ML SYR IV SCH (17:38)
[2022-08-30 20:00] VITALS: BP 125/56
[2022-08-30] MEDS: TAMSULOSIN 0.4 MG CAP PO SCH (20:55)
[2022-08-30] MEDS: ATORVASTATIN 20 MG TAB PO SCH (20:55)
[2022-08-30] MEDS: LEVEMIR (INSULIN DETEMIR) 1 UNITS/0.01ML SC SCH (21:07)
[2022-08-31] VITALS (9 sets, daily range): BP systolic 76–135; BP diastolic 34–73
[2022-08-31 05:41] LABS: HEMATOCRIT 25.7 % (42.0-52.0); HEMOGLOBIN 8.1 g/dl (13.5-17.5); MEAN CORPUSCULAR HEMOGLOBIN 30.6 pg (27.0-33.0); MEAN CORPUSCULAR HGB CONC 31.5 g/dl (32.0-36.5); PLATELET COUNT, AUTOMATED 241 10^3/uL (150-450); RED BLOOD COUNT 2.65 10^6/uL (4.30-6.10); WHITE BLOOD COUNT 12.6 10^3/uL (4.0-10.0)
[2022-08-31] MEDS: SODIUM CHLORIDE 0.9% INJ 10 ML SYR IV SCH ×2 (05:50→17:26)
[2022-08-31 06:10] LABS: ALBUMIN 2.4 G/DL (3.2-5.2); CALCIUM LEVEL 8.7 MG/DL (8.3-10.6); CREATININE FOR GFR 11.45 MG/DL (0.70-1.30); GLOMERULAR FILTRATION RATE 4.7 (>42); PHOSPHORUS LEVEL 3.7 MG/DL (2.4-5.1); POTASSIUM SERUM 3.8 MMOL/L (3.5-5.1)
[2022-08-31] MEDS: MIDODRINE 5 MG TAB PO SCH ×4 (08:00→17:25)
[2022-08-31] MEDS: (RENVELA) SEVELAMER **CARBONate** 800 MG TAB PO SCH ×3 (08:25→17:25)
[2022-08-31] MEDS: SUCROFERRIC OXYHYDROXIDE 500MG CHEW TAB (VELPHORO) PO SCH ×3 (08:26→17:25)
[2022-08-31] MEDS: PERCOCET 5MG/325MG TAB PO PRN (08:26)
[2022-08-31] MEDS: INSULIN LISPRO (NovoLOG) PER UNIT SC SCH ×4 (08:26→20:09)
[2022-08-31] MEDS: APIXABAN 5 MG TAB (ELIQUIS) PO SCH ×2 (08:26→20:13)
[2022-08-31] MEDS ORDERED: NS 500 ML IV ONE (12:50)
[2022-08-31] MEDS: MEROPENEM INJ 500 MG in IV 1 EA IV SCH (17:24)
[2022-08-31] MEDS: TAMSULOSIN 0.4 MG CAP PO SCH (20:12)
[2022-08-31] MEDS: LEVEMIR (INSULIN DETEMIR) 1 UNITS/0.01ML SC SCH (20:13)
[2022-08-31] MEDS: ATORVASTATIN 20 MG TAB PO SCH (20:13)
[2022-08-31] MEDS: POLYVINYL ALCOHOL OPHTH SOLN 15ML (LIQUITEARS) OU PRN (23:28)
[2022-09-01] VITALS (8 sets, daily range): BP systolic 85–132; BP diastolic 54–82
[2022-09-01] MEDS: SODIUM CHLORIDE 0.9% INJ 10 ML SYR IV SCH ×2 (06:58→17:34)
[2022-09-01 08:07] LABS: HEMATOCRIT 27.7 % (42.0-52.0); HEMOGLOBIN 8.7 g/dl (13.5-17.5); MEAN CORPUSCULAR HEMOGLOBIN 30.6 pg (27.0-33.0); MEAN CORPUSCULAR HGB CONC 31.4 g/dl (32.0-36.5); MEAN CORPUSCULAR VOLUME 97.5 fl (80.0-96.0); PLATELET COUNT, AUTOMATED 249 10^3/uL (150-450); RED BLOOD COUNT 2.84 10^6/uL (4.30-6.10); WHITE BLOOD COUNT 12.5 10^3/uL (4.0-10.0)
[2022-09-01 08:49] LABS: ALBUMIN 2.4 G/DL (3.2-5.2); CALCIUM LEVEL 8.5 MG/DL (8.3-10.6); CREATININE FOR GFR 11.38 MG/DL (0.70-1.30); GLOMERULAR FILTRATION RATE 4.7 (>42); PHOSPHORUS LEVEL 3.7 MG/DL (2.4-5.1); POTASSIUM SERUM 3.9 MMOL/L (3.5-5.1)
[2022-09-01] MEDS: APIXABAN 5 MG TAB (ELIQUIS) PO SCH ×2 (08:50→21:37)
[2022-09-01] MEDS: MIDODRINE 5 MG TAB PO SCH ×4 (08:50→16:00)
[2022-09-01] MEDS: INSULIN LISPRO (NovoLOG) PER UNIT SC SCH ×4 (08:50→20:47)
[2022-09-01] MEDS: (RENVELA) SEVELAMER **CARBONate** 800 MG TAB PO SCH ×3 (09:02→17:27)
[2022-09-01] MEDS: SUCROFERRIC OXYHYDROXIDE 500MG CHEW TAB (VELPHORO) PO SCH ×3 (09:03→17:27)
[2022-09-01] MEDS: PERCOCET 5MG/325MG TAB PO PRN (09:57)
[2022-09-01] MEDS: DARBEPOETIN 100MCG/0.5ML *NON-DIALYSIS* SYRINGE SC SCH (09:58)
[2022-09-01] MEDS ORDERED: HEPARIN SOD (PORCINE) 5000UNITS/ML 1ML VIAL/SYRINGE IP ONE (10:00)
[2022-09-01] MEDS: MEROPENEM INJ 500 MG in IV 1 EA IV SCH (17:34)
[2022-09-01] MEDS: TAMSULOSIN 0.4 MG CAP PO SCH (21:37)
[2022-09-01] MEDS: ATORVASTATIN 20 MG TAB PO SCH (21:37)
[2022-09-01] MEDS: LEVEMIR (INSULIN DETEMIR) 1 UNITS/0.01ML SC SCH (21:37)
[2022-09-01] MEDS ORDERED: SODIUM CHLORIDE 0.9% 1000ML IV ONE (21:45)
[2022-09-01] MEDS: POLYVINYL ALCOHOL OPHTH SOLN 15ML (LIQUITEARS) OU PRN (22:05)
[2022-09-01] MEDS: NEOSPORIN TOP OINT 15GM TOP SCH (22:15)
[2022-09-02 05:30] VITALS: BP 144/112
[2022-09-02 05:48] LABS: HEMATOCRIT 26.7 % (42.0-52.0); HEMOGLOBIN 8.4 g/dl (13.5-17.5); MEAN CORPUSCULAR HEMOGLOBIN 30.4 pg (27.0-33.0); MEAN CORPUSCULAR HGB CONC 31.5 g/dl (32.0-36.5); MEAN CORPUSCULAR VOLUME 96.7 fl (80.0-96.0); PLATELET COUNT, AUTOMATED 248 10^3/uL (150-450); RED BLOOD COUNT 2.76 10^6/uL (4.30-6.10); WHITE BLOOD COUNT 10.7 10^3/uL (4.0-10.0)
[2022-09-02 06:06] VITALS: BP 96/65
[2022-09-02 06:24] LABS: ALBUMIN 2.4 G/DL (3.2-5.2); CALCIUM LEVEL 9.1 MG/DL (8.3-10.6); CREATININE FOR GFR 11.3 MG/DL (0.70-1.30); GLOMERULAR FILTRATION RATE 4.8 (>42); PHOSPHORUS LEVEL 3.9 MG/DL (2.4-5.1); POTASSIUM SERUM 3.8 MMOL/L (3.5-5.1)
[2022-09-02] MEDS: SODIUM CHLORIDE 0.9% INJ 10 ML SYR IV SCH ×2 (06:53→17:25)
[2022-09-02] MEDS: (RENVELA) SEVELAMER **CARBONate** 800 MG TAB PO SCH ×3 (09:34→17:23)
[2022-09-02] MEDS: APIXABAN 5 MG TAB (ELIQUIS) PO SCH ×2 (09:34→20:38)
[2022-09-02] MEDS: SUCROFERRIC OXYHYDROXIDE 500MG CHEW TAB (VELPHORO) PO SCH ×3 (09:34→17:23)
[2022-09-02] MEDS: INSULIN LISPRO (NovoLOG) PER UNIT SC SCH ×4 (09:35→20:24)
[2022-09-02] MEDS: MIDODRINE 5 MG TAB PO SCH ×3 (09:36→17:23)
[2022-09-02] MEDS ORDERED: SODIUM CHLORIDE 0.9% 1000ML IV ONE (10:00)
[2022-09-02] MEDS: POLYVINYL ALCOHOL OPHTH SOLN 15ML (LIQUITEARS) OU PRN (10:56)
[2022-09-02] MEDS: DIGOXIN 0.125 MG TAB PO SCH (13:35)
[2022-09-02 13:36] VITALS: BP 116/63
[2022-09-02 14:00] VITALS: BP 91/40
[2022-09-02] MEDS: MEROPENEM INJ 500 MG in IV 1 EA IV SCH (17:23)
[2022-09-02] MEDS: LEVEMIR (INSULIN DETEMIR) 1 UNITS/0.01ML SC SCH (20:24)
[2022-09-02 20:30] VITALS: BP 91/69
[2022-09-02] MEDS: ATORVASTATIN 20 MG TAB PO SCH (20:38)
[2022-09-02] MEDS: NEOSPORIN TOP OINT 15GM TOP SCH (20:38)
[2022-09-03 05:35] LABS: HEMATOCRIT 28.7 % (42.0-52.0); MEAN CORPUSCULAR HEMOGLOBIN 30.2 pg (27.0-33.0); MEAN CORPUSCULAR HGB CONC 31.4 g/dl (32.0-36.5); MEAN CORPUSCULAR VOLUME 96.3 fl (80.0-96.0); PLATELET COUNT, AUTOMATED 253 10^3/uL (150-450); RED BLOOD COUNT 2.98 10^6/uL (4.30-6.10); WHITE BLOOD COUNT 10.9 10^3/uL (4.0-10.0)
[2022-09-03] MEDS: SODIUM CHLORIDE 0.9% INJ 10 ML SYR IV SCH ×2 (05:39→17:54)
[2022-09-03 05:59] LABS: ALBUMIN 2.3 G/DL (3.2-5.2); CALCIUM LEVEL 8.7 MG/DL (8.3-10.6); CREATININE FOR GFR 11.02 MG/DL (0.70-1.30); GLOMERULAR FILTRATION RATE 4.9 (>42); PHOSPHORUS LEVEL 2.9 MG/DL (2.4-5.1); POTASSIUM SERUM 3.8 MMOL/L (3.5-5.1)
[2022-09-03 06:00] VITALS: BP 107/60
[2022-09-03] MEDS: INSULIN LISPRO (NovoLOG) PER UNIT SC SCH ×4 (08:00→21:00)
[2022-09-03 08:30] VITALS: BP 105/62
[2022-09-03] MEDS: (RENVELA) SEVELAMER **CARBONate** 800 MG TAB PO SCH ×3 (10:25→17:52)
[2022-09-03] MEDS: SUCROFERRIC OXYHYDROXIDE 500MG CHEW TAB (VELPHORO) PO SCH ×3 (10:25→17:52)
[2022-09-03] MEDS: MIDODRINE 5 MG TAB PO SCH ×3 (10:25→17:53)
[2022-09-03] MEDS: APIXABAN 5 MG TAB (ELIQUIS) PO SCH ×2 (10:46→22:10)
[2022-09-03] MEDS: DIGOXIN 0.125 MG TAB PO SCH (10:47)
[2022-09-03] MEDS ORDERED: SENNA 8.6 MG TAB (SENOKOT) PO PRN (11:20)
[2022-09-03] MEDS: PERCOCET 5MG/325MG TAB PO PRN (11:23)
[2022-09-03 11:30] VITALS: BP_SYST 70; BP_SYST 99; BP_DIAS 53; BP_DIAS 56
[2022-09-03] MEDS: MIRALAX *UNIT DOSE* 17GM PACKET PO SCH (13:35)
[2022-09-03 13:36] VITALS: BP_SYST 117; BP_SYST 134; BP_SYST 96; BP_DIAS 34; BP_DIAS 42; BP_DIAS 76
[2022-09-03 14:00] VITALS: BP 152/88
[2022-09-03] MEDS: MEROPENEM INJ 500 MG in IV 1 EA IV SCH (17:52)
[2022-09-03 22:00] VITALS: BP 104/54
[2022-09-03] MEDS: ATORVASTATIN 20 MG TAB PO SCH (22:10)
[2022-09-03] MEDS: LEVEMIR (INSULIN DETEMIR) 1 UNITS/0.01ML SC SCH (22:10)
[2022-09-03] MEDS: NEOSPORIN TOP OINT 15GM TOP SCH (22:11)
[2022-09-04] MEDS: SODIUM CHLORIDE 0.9% INJ 10 ML SYR IV SCH ×2 (05:48→17:31)
[2022-09-04 06:00] VITALS: BP 131/68
[2022-09-04 06:13] LABS: HEMATOCRIT 25.8 % (42.0-52.0); HEMOGLOBIN 8.3 g/dl (13.5-17.5); MEAN CORPUSCULAR HEMOGLOBIN 30.9 pg (27.0-33.0); MEAN CORPUSCULAR HGB CONC 32.2 g/dl (32.0-36.5); MEAN CORPUSCULAR VOLUME 95.9 fl (80.0-96.0); PLATELET COUNT, AUTOMATED 254 10^3/uL (150-450); RED BLOOD COUNT 2.69 10^6/uL (4.30-6.10); WHITE BLOOD COUNT 10.5 10^3/uL (4.0-10.0)
[2022-09-04 06:40] VITALS: BP_SYST 109; BP_SYST 117; BP_SYST 122; BP_DIAS 60; BP_DIAS 62; BP_DIAS 65
[2022-09-04 06:48] LABS: ALBUMIN 2.2 G/DL (3.2-5.2); CALCIUM LEVEL 8.8 MG/DL (8.3-10.6); CREATININE FOR GFR 10.65 MG/DL (0.70-1.30); GLOMERULAR FILTRATION RATE 5.1 (>42); PHOSPHORUS LEVEL 3.5 MG/DL (2.4-5.1); POTASSIUM SERUM 3.5 MMOL/L (3.5-5.1)
[2022-09-04] MEDS: PERCOCET 5MG/325MG TAB PO PRN (06:52)
[2022-09-04] MEDS: SUCROFERRIC OXYHYDROXIDE 500MG CHEW TAB (VELPHORO) PO SCH ×3 (07:35→17:30)
[2022-09-04] MEDS: (RENVELA) SEVELAMER **CARBONate** 800 MG TAB PO SCH ×3 (07:35→17:30)
[2022-09-04] MEDS: INSULIN LISPRO (NovoLOG) PER UNIT SC SCH ×4 (07:36→21:00)
[2022-09-04 07:58] LABS: PERCENT SATURATION 29.5 % (19.7-50.0)
[2022-09-04] MEDS: MIDODRINE 5 MG TAB PO SCH ×3 (08:00→15:36)
[2022-09-04] MEDS: APIXABAN 5 MG TAB (ELIQUIS) PO SCH ×2 (08:46→20:25)
[2022-09-04] MEDS: MIRALAX *UNIT DOSE* 17GM PACKET PO SCH (08:47)
[2022-09-04] MEDS: DIGOXIN 0.125 MG TAB PO SCH (08:47)
[2022-09-04] MEDS ORDERED: HEPARIN SOD (PORCINE) 5000UNITS/ML 1ML VIAL/SYRINGE PD ONE (14:00)
[2022-09-04 15:29] VITALS: BP 136/50
[2022-09-04] MEDS: MEROPENEM INJ 500 MG in IV 1 EA IV SCH (17:30)
[2022-09-04 19:59] VITALS: BP 112/68
[2022-09-04] MEDS: ATORVASTATIN 20 MG TAB PO SCH (20:24)
[2022-09-04] MEDS: NEOSPORIN TOP OINT 15GM TOP SCH (20:26)
[2022-09-04] MEDS: LEVEMIR (INSULIN DETEMIR) 1 UNITS/0.01ML SC SCH (20:28)
[2022-09-05 06:00] VITALS: BP 102/61
[2022-09-05] MEDS: SODIUM CHLORIDE 0.9% INJ 10 ML SYR IV SCH ×2 (06:00→18:25)
[2022-09-05 07:00] LABS: HEMATOCRIT 25.7 % (42.0-52.0); HEMOGLOBIN 8.2 g/dl (13.5-17.5); MEAN CORPUSCULAR HEMOGLOBIN 30.5 pg (27.0-33.0); MEAN CORPUSCULAR HGB CONC 31.9 g/dl (32.0-36.5); MEAN CORPUSCULAR VOLUME 95.5 fl (80.0-96.0); PLATELET COUNT, AUTOMATED 237 10^3/uL (150-450); RED BLOOD COUNT 2.69 10^6/uL (4.30-6.10); WHITE BLOOD COUNT 8.8 10^3/uL (4.0-10.0)
[2022-09-05 07:29] LABS: ALBUMIN 2.3 G/DL (3.2-5.2); CALCIUM LEVEL 8.5 MG/DL (8.3-10.6); CREATININE FOR GFR 10.22 MG/DL (0.70-1.30); GLOMERULAR FILTRATION RATE 5.3 (>42); PHOSPHORUS LEVEL 3.4 MG/DL (2.4-5.1); POTASSIUM SERUM 3.5 MMOL/L (3.5-5.1)
[2022-09-05 08:00] VITALS: BP 108/43
[2022-09-05] MEDS ORDERED: PILL CUTTER 1 EACH XX ONE (08:00)
[2022-09-05] MEDS: MIDODRINE 5 MG TAB PO SCH ×3 (08:05→16:00)
[2022-09-05] MEDS: SUCROFERRIC OXYHYDROXIDE 500MG CHEW TAB (VELPHORO) PO SCH ×3 (08:05→16:55)
[2022-09-05] MEDS: DIGOXIN 0.125 MG TAB PO SCH (08:05)
[2022-09-05] MEDS: (RENVELA) SEVELAMER **CARBONate** 800 MG TAB PO SCH ×3 (08:05→16:55)
[2022-09-05] MEDS: INSULIN LISPRO (NovoLOG) PER UNIT SC SCH ×4 (08:06→21:00)
[2022-09-05] MEDS: POLYVINYL ALCOHOL OPHTH SOLN 15ML (LIQUITEARS) OU PRN (08:06)
[2022-09-05] MEDS: APIXABAN 5 MG TAB (ELIQUIS) PO SCH ×2 (08:06→20:18)
[2022-09-05] MEDS: MIRALAX *UNIT DOSE* 17GM PACKET PO SCH (08:07)
[2022-09-05] MEDS ORDERED: POTASSIUM CHLORIDE 10MEQ SR TABLET PO ONE (09:00)
[2022-09-05 11:29] VITALS: BP 127/45
[2022-09-05 14:00] VITALS: BP 114/40
[2022-09-05 16:25] VITALS: BP 123/54
[2022-09-05] MEDS: MEROPENEM INJ 500 MG in IV 1 EA IV SCH (18:24)
[2022-09-05] MEDS: ATORVASTATIN 20 MG TAB PO SCH (20:18)
[2022-09-05] MEDS: NEOSPORIN TOP OINT 15GM TOP SCH (20:19)
[2022-09-05] MEDS: LEVEMIR (INSULIN DETEMIR) 1 UNITS/0.01ML SC SCH (20:19)
[2022-09-05 21:00] VITALS: BP 101/52
[2022-09-06 05:30] VITALS: BP 111/79
[2022-09-06] MEDS: SODIUM CHLORIDE 0.9% INJ 10 ML SYR IV SCH ×2 (06:15→19:55)
[2022-09-06] MEDS: MIDODRINE 5 MG TAB PO SCH ×3 (08:00→16:00)
[2022-09-06 08:11] LABS: BASO # 0.1 10^3/uL (0.0-0.2); BASO % 0.6 % (0.0-1.0); EOS # 0.2 10^3/uL (0.0-0.5); EOS % 1.7 % (0.0-3.0); HEMATOCRIT 26.7 % (42.0-52.0); HEMOGLOBIN 8.7 g/dl (13.5-17.5); LYMPH % 10.7 % (24.0-44.0); MEAN CORPUSCULAR HGB CONC 32.6 g/dl (32.0-36.5); MONO # 0.6 10^3/uL (0.0-0.8); MONO % 6.6 % (2.0-8.0); NEUTROPHILS # 7.7 10^3/uL (1.5-8.5); NEUTROPHILS % 79.7 % (36.0-66.0); PLATELET COUNT, AUTOMATED 249 10^3/uL (150-450); RED BLOOD COUNT 2.81 10^6/uL (4.30-6.10); WHITE BLOOD COUNT 9.7 10^3/uL (4.0-10.0)
[2022-09-06 08:38] LABS: CALCIUM LEVEL 8.6 MG/DL (8.3-10.6); CREATININE FOR GFR 9.76 MG/DL (0.70-1.30); GLOMERULAR FILTRATION RATE 5.6 (>42); POTASSIUM SERUM 3.6 MMOL/L (3.5-5.1)
[2022-09-06] MEDS: APIXABAN 5 MG TAB (ELIQUIS) PO SCH ×2 (08:46→20:44)
[2022-09-06] MEDS: SUCROFERRIC OXYHYDROXIDE 500MG CHEW TAB (VELPHORO) PO SCH ×4 (08:46→19:07)
[2022-09-06] MEDS: (RENVELA) SEVELAMER **CARBONate** 800 MG TAB PO SCH ×3 (08:46→19:07)
[2022-09-06] MEDS: DIGOXIN 0.125 MG TAB PO SCH (08:46)
[2022-09-06] MEDS: INSULIN LISPRO (NovoLOG) PER UNIT SC SCH ×4 (08:47→20:39)
[2022-09-06] MEDS: MIRALAX *UNIT DOSE* 17GM PACKET PO SCH (08:47)
[2022-09-06] MEDS: TAMSULOSIN 0.4 MG CAP PO SCH (11:49)
[2022-09-06] MEDS: SENNA 8.6 MG TAB (SENOKOT) PO SCH (11:49)
[2022-09-06] MEDS: MEROPENEM INJ 500 MG in IV 1 EA IV SCH (19:08)
[2022-09-06] MEDS: ATORVASTATIN 20 MG TAB PO SCH (20:44)
[2022-09-06] MEDS: LEVEMIR (INSULIN DETEMIR) 1 UNITS/0.01ML SC SCH (20:44)
[2022-09-06] MEDS: NEOSPORIN TOP OINT 15GM TOP SCH (20:45)
[2022-09-07 06:13] LABS: CALCIUM LEVEL 8.9 MG/DL (8.3-10.6); CREATININE FOR GFR 9.54 MG/DL (0.70-1.30); GLOMERULAR FILTRATION RATE 5.8 (>42); POTASSIUM SERUM 3.5 MMOL/L (3.5-5.1)
[2022-09-07] MEDS: SODIUM CHLORIDE 0.9% INJ 10 ML SYR IV SCH ×2 (06:20→18:16)
[2022-09-07 06:58] VITALS: BP 119/44
[2022-09-07] MEDS: MIDODRINE 5 MG TAB PO SCH ×3 (08:00→15:25)
[2022-09-07] MEDS: TAMSULOSIN 0.4 MG CAP PO SCH (08:32)
[2022-09-07] MEDS: MIRALAX *UNIT DOSE* 17GM PACKET PO SCH (08:32)
[2022-09-07] MEDS: APIXABAN 5 MG TAB (ELIQUIS) PO SCH ×2 (08:32→20:27)
[2022-09-07] MEDS: (RENVELA) SEVELAMER **CARBONate** 800 MG TAB PO SCH (08:32)
[2022-09-07] MEDS: SENNA 8.6 MG TAB (SENOKOT) PO SCH (08:32)
[2022-09-07] MEDS: SUCROFERRIC OXYHYDROXIDE 500MG CHEW TAB (VELPHORO) PO SCH ×3 (08:33→18:14)
[2022-09-07] MEDS: INSULIN LISPRO (NovoLOG) PER UNIT SC SCH ×4 (08:33→20:40)
[2022-09-07] MEDS: DIGOXIN 0.125 MG TAB PO SCH (08:33)
[2022-09-07] MEDS: MEROPENEM INJ 500 MG in IV 1 EA IV SCH (18:15)
[2022-09-07] MEDS: NEOSPORIN TOP OINT 15GM TOP SCH (20:27)
[2022-09-07] MEDS: ATORVASTATIN 20 MG TAB PO SCH (20:27)
[2022-09-07 20:28] VITALS: BP 156/73
[2022-09-07] MEDS: LEVEMIR (INSULIN DETEMIR) 1 UNITS/0.01ML SC SCH (20:48)
[2022-09-07] MEDS: OMEPRAZOLE 20MG CAP PO PRN (23:16)
[2022-09-08 06:00] VITALS: BP 113/58
[2022-09-08 06:08] LABS: CALCIUM LEVEL 9.2 MG/DL (8.3-10.6); CREATININE FOR GFR 9.21 MG/DL (0.70-1.30); POTASSIUM SERUM 3.6 MMOL/L (3.5-5.1)
[2022-09-08] MEDS: SODIUM CHLORIDE 0.9% INJ 10 ML SYR IV SCH ×2 (06:11→17:37)
[2022-09-08] MEDS: MIDODRINE 5 MG TAB PO SCH ×3 (08:00→17:00)
[2022-09-08] MEDS: MIRALAX *UNIT DOSE* 17GM PACKET PO SCH (08:41)
[2022-09-08] MEDS: SUCROFERRIC OXYHYDROXIDE 500MG CHEW TAB (VELPHORO) PO SCH ×3 (08:42→17:02)
[2022-09-08] MEDS: TAMSULOSIN 0.4 MG CAP PO SCH (08:42)
[2022-09-08] MEDS: DIGOXIN 0.125 MG TAB PO SCH (08:42)
[2022-09-08] MEDS: SENNA 8.6 MG TAB (SENOKOT) PO SCH (08:42)
[2022-09-08] MEDS: INSULIN LISPRO (NovoLOG) PER UNIT SC SCH ×4 (08:42→20:18)
[2022-09-08] MEDS: APIXABAN 5 MG TAB (ELIQUIS) PO SCH ×2 (08:42→20:18)
[2022-09-08] MEDS: DARBEPOETIN 200MCG/0.4ML *NON-DIALYSIS* SYRINGE SC SCH (09:01)
[2022-09-08] MEDS: MEROPENEM INJ 500 MG in IV 1 EA IV SCH (17:35)
[2022-09-08] MEDS: ATORVASTATIN 20 MG TAB PO SCH (20:17)
[2022-09-08] MEDS: NEOSPORIN TOP OINT 15GM TOP SCH (20:18)
[2022-09-08] MEDS: LEVEMIR (INSULIN DETEMIR) 1 UNITS/0.01ML SC SCH (20:19)
[2022-09-09] MEDS: OMEPRAZOLE 20MG CAP PO PRN (03:33)
[2022-09-09] MEDS ORDERED: BISACODYL 10MG SUPP PR PRN (05:25)
[2022-09-09 05:27] VITALS: BP 112/66
[2022-09-09] MEDS: SODIUM CHLORIDE 0.9% INJ 10 ML SYR IV SCH ×2 (05:42→18:12)
[2022-09-09] MEDS: MIDODRINE 5 MG TAB PO SCH ×3 (08:00→18:12)
[2022-09-09] MEDS: SUCROFERRIC OXYHYDROXIDE 500MG CHEW TAB (VELPHORO) PO SCH ×3 (08:00→18:12)
[2022-09-09 08:12] LABS: CALCIUM LEVEL 9.1 MG/DL (8.3-10.6); CREATININE FOR GFR 8.94 MG/DL (0.70-1.30); GLOMERULAR FILTRATION RATE 6.2 (>42); POTASSIUM SERUM 3.9 MMOL/L (3.5-5.1)
[2022-09-09] MEDS: MIRALAX *UNIT DOSE* 17GM PACKET PO SCH (08:23)
[2022-09-09] MEDS: SENNA 8.6 MG TAB (SENOKOT) PO SCH (08:24)
[2022-09-09] MEDS: APIXABAN 5 MG TAB (ELIQUIS) PO SCH ×2 (08:24→22:11)
[2022-09-09] MEDS: INSULIN LISPRO (NovoLOG) PER UNIT SC SCH ×4 (08:25→21:00)
[2022-09-09] MEDS: TAMSULOSIN 0.4 MG CAP PO SCH (08:26)
[2022-09-09] MEDS: DIGOXIN 0.125 MG TAB PO SCH (08:26)
[2022-09-09 08:30] VITALS: BP 136/55
[2022-09-09] MEDS ORDERED: MUPIROCIN 2% OINT 22 GM TUBE TOP SCH (09:00)
[2022-09-09 13:09] VITALS: BP 128/55
[2022-09-09] MEDS: HEPARIN SOD (PORCINE) 5000UNITS/ML 1ML VIAL/SYRINGE PD SCH ×3 (14:22→22:10)
[2022-09-09 15:42] LABS: HEMATOCRIT 28.6 % (42.0-52.0); HEMOGLOBIN 9.4 g/dl (13.5-17.5); MEAN CORPUSCULAR HGB CONC 32.9 g/dl (32.0-36.5); MEAN CORPUSCULAR VOLUME 94.4 fl (80.0-96.0); PLATELET COUNT, AUTOMATED 304 10^3/uL (150-450); RED BLOOD COUNT 3.03 10^6/uL (4.30-6.10); WHITE BLOOD COUNT 15.8 10^3/uL (4.0-10.0)
[2022-09-09 16:00] VITALS: BP 112/58
[2022-09-09 16:46] LABS: C REACTIVE PROTEIN QUANTITATIV 2.6 MG/DL (<1.0)
[2022-09-09] MEDS: MEROPENEM INJ 500 MG in IV 1 EA IV SCH (18:12)
[2022-09-09 18:14] VITALS: BP 108/42
[2022-09-09 21:47] VITALS: BP 124/54
[2022-09-09] MEDS: LEVEMIR (INSULIN DETEMIR) 1 UNITS/0.01ML SC SCH (22:11)
[2022-09-09] MEDS: ATORVASTATIN 20 MG TAB PO SCH (22:11)
[2022-09-10 05:56] LABS: BASO # 0.1 10^3/uL (0.0-0.2); BASO % 0.5 % (0.0-1.0); EOS # 0.2 10^3/uL (0.0-0.5); EOS % 1.7 % (0.0-3.0); HEMATOCRIT 25.9 % (42.0-52.0); HEMOGLOBIN 8.6 g/dl (13.5-17.5); LYMPH # 1.4 10^3/uL (1.5-5.0); LYMPH % 14.3 % (24.0-44.0); MEAN CORPUSCULAR HEMOGLOBIN 30.9 pg (27.0-33.0); MEAN CORPUSCULAR HGB CONC 33.2 g/dl (32.0-36.5); MEAN CORPUSCULAR VOLUME 93.2 fl (80.0-96.0); MONO # 0.8 10^3/uL (0.0-0.8); NEUTROPHILS # 7.2 10^3/uL (1.5-8.5); NEUTROPHILS % 74.5 % (36.0-66.0); PLATELET COUNT, AUTOMATED 272 10^3/uL (150-450); RED BLOOD COUNT 2.78 10^6/uL (4.30-6.10); WHITE BLOOD COUNT 9.7 10^3/uL (4.0-10.0)
[2022-09-10 06:00] VITALS: BP 123/54
[2022-09-10] MEDS: HEPARIN SOD (PORCINE) 5000UNITS/ML 1ML VIAL/SYRINGE PD SCH ×2 (06:11→11:26)
[2022-09-10] MEDS: SODIUM CHLORIDE 0.9% INJ 10 ML SYR IV SCH ×2 (06:12→18:32)
[2022-09-10 06:27] LABS: CALCIUM LEVEL 8.6 MG/DL (8.3-10.6); CREATININE FOR GFR 8.8 MG/DL (0.70-1.30); GLOMERULAR FILTRATION RATE 6.4 (>42); POTASSIUM SERUM 3.5 MMOL/L (3.5-5.1)
[2022-09-10] MEDS: SUCROFERRIC OXYHYDROXIDE 500MG CHEW TAB (VELPHORO) PO SCH ×3 (08:00→18:31)
[2022-09-10] MEDS: MIRALAX *UNIT DOSE* 17GM PACKET PO SCH (08:25)
[2022-09-10] MEDS: MIDODRINE 5 MG TAB PO SCH ×3 (08:28→16:00)
[2022-09-10] MEDS: INSULIN LISPRO (NovoLOG) PER UNIT SC SCH ×4 (08:28→21:59)
[2022-09-10] MEDS: SENNA 8.6 MG TAB (SENOKOT) PO SCH (08:29)
[2022-09-10] MEDS: APIXABAN 5 MG TAB (ELIQUIS) PO SCH ×2 (08:30→21:58)
[2022-09-10] MEDS: DIGOXIN 0.125 MG TAB PO SCH (08:30)
[2022-09-10] MEDS: TAMSULOSIN 0.4 MG CAP PO SCH (09:00)
[2022-09-10 15:00] VITALS: BP 121/58
[2022-09-10] MEDS: MEROPENEM INJ 500 MG in IV 1 EA IV SCH (18:29)
[2022-09-10 21:10] VITALS: BP 130/42
[2022-09-10] MEDS: LEVEMIR (INSULIN DETEMIR) 1 UNITS/0.01ML SC SCH (21:58)
[2022-09-10] MEDS: ATORVASTATIN 20 MG TAB PO SCH (21:58)
[2022-09-11 05:00] VITALS: BP 137/64
[2022-09-11] MEDS: SODIUM CHLORIDE 0.9% INJ 10 ML SYR IV SCH ×2 (05:13→18:20)
[2022-09-11 05:50] LABS: HEMATOCRIT 26.3 % (42.0-52.0); HEMOGLOBIN 8.5 g/dl (13.5-17.5); MEAN CORPUSCULAR HEMOGLOBIN 30.2 pg (27.0-33.0); MEAN CORPUSCULAR HGB CONC 32.3 g/dl (32.0-36.5); MEAN CORPUSCULAR VOLUME 93.6 fl (80.0-96.0); PLATELET COUNT, AUTOMATED 270 10^3/uL (150-450); RED BLOOD COUNT 2.81 10^6/uL (4.30-6.10); WHITE BLOOD COUNT 10.4 10^3/uL (4.0-10.0)
[2022-09-11 06:21] LABS: ALBUMIN 2.2 G/DL (3.2-5.2); BILIRUBIN,TOTAL 0.3 MG/DL (0.3-1.2); CALCIUM LEVEL 8.2 MG/DL (8.3-10.6); CREATININE FOR GFR 8.8 MG/DL (0.70-1.30); GLOMERULAR FILTRATION RATE 6.4 (>42); POTASSIUM SERUM 3.5 MMOL/L (3.5-5.1); TOTAL PROTEIN 5.2 G/DL (5.7-8.2)
[2022-09-11] MEDS: SUCROFERRIC OXYHYDROXIDE 500MG CHEW TAB (VELPHORO) PO SCH ×3 (08:00→18:19)
[2022-09-11] MEDS: INSULIN LISPRO (NovoLOG) PER UNIT SC SCH ×4 (08:22→20:32)
[2022-09-11] MEDS: MIDODRINE 5 MG TAB PO SCH ×3 (08:26→16:00)
[2022-09-11] MEDS: DIGOXIN 0.125 MG TAB PO SCH (08:27)
[2022-09-11] MEDS: TAMSULOSIN 0.4 MG CAP PO SCH (08:27)
[2022-09-11] MEDS: APIXABAN 5 MG TAB (ELIQUIS) PO SCH ×2 (08:27→20:46)
[2022-09-11] MEDS: SENNA 8.6 MG TAB (SENOKOT) PO SCH (08:27)
[2022-09-11] MEDS: ACETAMINOPHEN TAB 650MG DOSE (2X325MG) PO PRN (08:30)
[2022-09-11] MEDS: MIRALAX *UNIT DOSE* 17GM PACKET PO SCH (08:31)
[2022-09-11] MEDS: MUPIROCIN 2% OINT 22 GM TUBE TOP SCH (09:00)
[2022-09-11 14:00] VITALS: BP 137/47
[2022-09-11] MEDS: MEROPENEM INJ 500 MG in IV 1 EA IV SCH (18:15)
[2022-09-11 20:10] VITALS: BP 137/47
[2022-09-11] MEDS: ATORVASTATIN 20 MG TAB PO SCH (20:46)
[2022-09-11] MEDS: LEVEMIR (INSULIN DETEMIR) 1 UNITS/0.01ML SC SCH (20:46)
[2022-09-12 05:57] LABS: HEMATOCRIT 27.2 % (42.0-52.0); HEMOGLOBIN 8.7 g/dl (13.5-17.5); MEAN CORPUSCULAR HEMOGLOBIN 30.2 pg (27.0-33.0); MEAN CORPUSCULAR VOLUME 94.4 fl (80.0-96.0); PLATELET COUNT, AUTOMATED 280 10^3/uL (150-450); RED BLOOD COUNT 2.88 10^6/uL (4.30-6.10); WHITE BLOOD COUNT 10.1 10^3/uL (4.0-10.0)
[2022-09-12 06:00] VITALS: BP 130/62
[2022-09-12 07:18] LABS: ALBUMIN 2.2 G/DL (3.2-5.2); BILIRUBIN,TOTAL 0.2 MG/DL (0.3-1.2); CALCIUM LEVEL 8.9 MG/DL (8.3-10.6); CREATININE FOR GFR 8.56 MG/DL (0.70-1.30); GLOMERULAR FILTRATION RATE 6.6 (>42); POTASSIUM SERUM 3.5 MMOL/L (3.5-5.1); TOTAL PROTEIN 5.1 G/DL (5.7-8.2)
[2022-09-12 08:00] VITALS: BP 113/74
[2022-09-12] MEDS: DIGOXIN 0.125 MG TAB PO SCH (09:00)
[2022-09-12] MEDS: ACETAMINOPHEN TAB 650MG DOSE (2X325MG) PO PRN (09:13)
[2022-09-12] MEDS: INSULIN LISPRO (NovoLOG) PER UNIT SC SCH ×4 (09:13→20:21)
[2022-09-12] MEDS: MIRALAX *UNIT DOSE* 17GM PACKET PO SCH (09:13)
[2022-09-12] MEDS: SENNA 8.6 MG TAB (SENOKOT) PO SCH (09:14)
[2022-09-12] MEDS: LACTOBACILLUS ACIDOPHILUS CAP (BACID) PO SCH ×2 (09:15→17:42)
[2022-09-12] MEDS: TAMSULOSIN 0.4 MG CAP PO SCH (09:15)
[2022-09-12] MEDS: SUCROFERRIC OXYHYDROXIDE 500MG CHEW TAB (VELPHORO) PO SCH ×3 (09:35→17:37)
[2022-09-12] MEDS: MIDODRINE 5 MG TAB PO SCH ×3 (09:37→15:56)
[2022-09-12] MEDS: APIXABAN 5 MG TAB (ELIQUIS) PO SCH ×2 (09:44→21:54)
[2022-09-12 10:45] LABS: C REACTIVE PROTEIN QUANTITATIV 1.9 MG/DL (<1.0)
[2022-09-12 11:30] LABS: ERYTHROCYTE SEDIMENTATION RATE 66 mm/hr (0-20)
[2022-09-12 14:00] VITALS: BP 127/59
[2022-09-12] MEDS: LEVEMIR (INSULIN DETEMIR) 1 UNITS/0.01ML SC SCH (21:53)
[2022-09-12] MEDS: ATORVASTATIN 20 MG TAB PO SCH (21:54)
[2022-09-12] MEDS ORDERED: HEPARIN SOD (PORCINE) 5000UNITS/ML 1ML VIAL/SYRINGE PD ONE (22:00)
[2022-09-13 06:00] VITALS: BP 146/65
[2022-09-13] MEDS ORDERED: HEPARIN SOD (PORCINE) 5000UNITS/ML 1ML VIAL/SYRINGE PD ONE ×4 (06:00→18:00)
[2022-09-13 06:04] LABS: HEMATOCRIT 26.3 % (42.0-52.0); HEMOGLOBIN 8.6 g/dl (13.5-17.5); MEAN CORPUSCULAR HGB CONC 32.7 g/dl (32.0-36.5); MEAN CORPUSCULAR VOLUME 94.9 fl (80.0-96.0); PLATELET COUNT, AUTOMATED 288 10^3/uL (150-450); RED BLOOD COUNT 2.77 10^6/uL (4.30-6.10); WHITE BLOOD COUNT 10.9 10^3/uL (4.0-10.0)
[2022-09-13 06:31] LABS: ALBUMIN 2.2 G/DL (3.2-5.2); BILIRUBIN,TOTAL 0.3 MG/DL (0.3-1.2); CALCIUM LEVEL 8.5 MG/DL (8.3-10.6); CREATININE FOR GFR 8.24 MG/DL (0.70-1.30); GLOMERULAR FILTRATION RATE 6.9 (>42); POTASSIUM SERUM 3.5 MMOL/L (3.5-5.1)
[2022-09-13] MEDS: MIDODRINE 5 MG TAB PO SCH ×3 (07:29→16:00)
[2022-09-13] MEDS: SUCROFERRIC OXYHYDROXIDE 500MG CHEW TAB (VELPHORO) PO SCH ×3 (08:00→17:11)
[2022-09-13] MEDS: MIRALAX *UNIT DOSE* 17GM PACKET PO SCH (08:04)
[2022-09-13] MEDS: APIXABAN 5 MG TAB (ELIQUIS) PO SCH ×2 (08:05→21:10)
[2022-09-13] MEDS: INSULIN LISPRO (NovoLOG) PER UNIT SC SCH ×4 (08:05→19:54)
[2022-09-13] MEDS: DIGOXIN 0.125 MG TAB PO SCH (08:05)
[2022-09-13] MEDS: TAMSULOSIN 0.4 MG CAP PO SCH (08:05)
[2022-09-13] MEDS: SENNA 8.6 MG TAB (SENOKOT) PO SCH (08:05)
[2022-09-13] MEDS: LACTOBACILLUS ACIDOPHILUS CAP (BACID) PO SCH ×2 (08:05→17:10)
[2022-09-13] MEDS: MUPIROCIN 2% OINT 22 GM TUBE TOP SCH (08:06)
[2022-09-13] MEDS: LEVEMIR (INSULIN DETEMIR) 1 UNITS/0.01ML SC SCH (21:10)
[2022-09-13] MEDS: ATORVASTATIN 20 MG TAB PO SCH (21:10)
[2022-09-14 06:00] VITALS: BP 142/63
[2022-09-14 06:15] LABS: HEMATOCRIT 26.7 % (42.0-52.0); HEMOGLOBIN 8.6 g/dl (13.5-17.5); MEAN CORPUSCULAR HEMOGLOBIN 30.8 pg (27.0-33.0); MEAN CORPUSCULAR HGB CONC 32.2 g/dl (32.0-36.5); MEAN CORPUSCULAR VOLUME 95.7 fl (80.0-96.0); PLATELET COUNT, AUTOMATED 293 10^3/uL (150-450); RED BLOOD COUNT 2.79 10^6/uL (4.30-6.10); WHITE BLOOD COUNT 9.8 10^3/uL (4.0-10.0)
[2022-09-14 06:50] LABS: ALBUMIN 2.1 G/DL (3.2-5.2); BILIRUBIN,TOTAL 0.3 MG/DL (0.3-1.2); CALCIUM LEVEL 8.5 MG/DL (8.3-10.6); CREATININE FOR GFR 8.21 MG/DL (0.70-1.30); GLOMERULAR FILTRATION RATE 6.9 (>42); POTASSIUM SERUM 3.6 MMOL/L (3.5-5.1)
[2022-09-14 07:53] VITALS: BP 150/63
[2022-09-14] MEDS: MIDODRINE 5 MG TAB PO SCH ×3 (08:00→15:22)
[2022-09-14] MEDS: SUCROFERRIC OXYHYDROXIDE 500MG CHEW TAB (VELPHORO) PO SCH ×3 (08:00→17:34)
[2022-09-14] MEDS: INSULIN LISPRO (NovoLOG) PER UNIT SC SCH ×4 (08:50→21:00)
[2022-09-14] MEDS: APIXABAN 5 MG TAB (ELIQUIS) PO SCH ×2 (08:53→21:47)
[2022-09-14] MEDS: MIRALAX *UNIT DOSE* 17GM PACKET PO SCH (08:53)
[2022-09-14] MEDS: SENNA 8.6 MG TAB (SENOKOT) PO SCH (08:54)
[2022-09-14] MEDS: TAMSULOSIN 0.4 MG CAP PO SCH (08:54)
[2022-09-14] MEDS: LACTOBACILLUS ACIDOPHILUS CAP (BACID) PO SCH ×2 (08:54→17:34)
[2022-09-14] MEDS: DIGOXIN 0.125 MG TAB PO SCH (08:54)
[2022-09-14 14:59] VITALS: BP 130/67
[2022-09-14 15:22] VITALS: BP 115/63
[2022-09-14] MEDS: LEVEMIR (INSULIN DETEMIR) 1 UNITS/0.01ML SC SCH (21:47)
[2022-09-14] MEDS: ATORVASTATIN 20 MG TAB PO SCH (21:47)
[2022-09-15 04:50] VITALS: BP 121/51
[2022-09-15 06:02] LABS: HEMATOCRIT 27.5 % (42.0-52.0); HEMOGLOBIN 8.7 g/dl (13.5-17.5); MEAN CORPUSCULAR HEMOGLOBIN 30.3 pg (27.0-33.0); MEAN CORPUSCULAR HGB CONC 31.6 g/dl (32.0-36.5); MEAN CORPUSCULAR VOLUME 95.8 fl (80.0-96.0); PLATELET COUNT, AUTOMATED 294 10^3/uL (150-450); RED BLOOD COUNT 2.87 10^6/uL (4.30-6.10); WHITE BLOOD COUNT 10.8 10^3/uL (4.0-10.0)
[2022-09-15 06:54] LABS: ALBUMIN 2.2 G/DL (3.2-5.2); BILIRUBIN,TOTAL 0.3 MG/DL (0.3-1.2); CALCIUM LEVEL 8.4 MG/DL (8.3-10.6); CREATININE FOR GFR 8.31 MG/DL (0.70-1.30); GLOMERULAR FILTRATION RATE 6.8 (>42); POTASSIUM SERUM 3.8 MMOL/L (3.5-5.1); TOTAL PROTEIN 5.2 G/DL (5.7-8.2)
[2022-09-15] MEDS: MIRALAX *UNIT DOSE* 17GM PACKET PO SCH (07:33)
[2022-09-15] MEDS: INSULIN LISPRO (NovoLOG) PER UNIT SC SCH ×4 (07:34→22:06)
[2022-09-15] MEDS: LACTOBACILLUS ACIDOPHILUS CAP (BACID) PO SCH ×2 (07:35→17:42)
[2022-09-15] MEDS: SENNA 8.6 MG TAB (SENOKOT) PO SCH (07:35)
[2022-09-15] MEDS: SUCROFERRIC OXYHYDROXIDE 500MG CHEW TAB (VELPHORO) PO SCH ×3 (07:35→17:43)
[2022-09-15] MEDS: MIDODRINE 5 MG TAB PO SCH ×3 (07:36→15:36)
[2022-09-15] MEDS: APIXABAN 5 MG TAB (ELIQUIS) PO SCH ×2 (07:36→22:06)
[2022-09-15] MEDS: TAMSULOSIN 0.4 MG CAP PO SCH (07:36)
[2022-09-15] MEDS: DIGOXIN 0.125 MG TAB PO SCH (07:37)
[2022-09-15] MEDS: MUPIROCIN 2% OINT 22 GM TUBE TOP SCH (07:42)
[2022-09-15] MEDS: DARBEPOETIN 200MCG/0.4ML *NON-DIALYSIS* SYRINGE SC SCH (09:46)
[2022-09-15] MEDS: ATORVASTATIN 20 MG TAB PO SCH (22:06)
[2022-09-15] MEDS: LEVEMIR (INSULIN DETEMIR) 1 UNITS/0.01ML SC SCH (22:06)
[2022-09-15] MEDS: OMEPRAZOLE 20MG CAP PO PRN (22:06)
[2022-09-16] MEDS: NYSTATIN 100,000 UNITS/GM TOPICAL PWD 15GM TOP SCH (01:03)
[2022-09-16 04:40] VITALS: BP 146/45
[2022-09-16 06:47] LABS: HEMATOCRIT 28.8 % (42.0-52.0); HEMOGLOBIN 9.2 g/dl (13.5-17.5); MEAN CORPUSCULAR HEMOGLOBIN 30.9 pg (27.0-33.0); MEAN CORPUSCULAR HGB CONC 31.9 g/dl (32.0-36.5); MEAN CORPUSCULAR VOLUME 96.6 fl (80.0-96.0); PLATELET COUNT, AUTOMATED 301 10^3/uL (150-450); RED BLOOD COUNT 2.98 10^6/uL (4.30-6.10)
[2022-09-16] MEDS: SUCROFERRIC OXYHYDROXIDE 500MG CHEW TAB (VELPHORO) PO SCH ×3 (07:26→18:12)
[2022-09-16] MEDS: MIRALAX *UNIT DOSE* 17GM PACKET PO SCH (07:27)
[2022-09-16] MEDS: LACTOBACILLUS ACIDOPHILUS CAP (BACID) PO SCH ×2 (07:27→18:12)
[2022-09-16] MEDS: DIGOXIN 0.125 MG TAB PO SCH (07:27)
[2022-09-16] MEDS: SENNA 8.6 MG TAB (SENOKOT) PO SCH (07:28)
[2022-09-16] MEDS: TAMSULOSIN 0.4 MG CAP PO SCH (07:28)
[2022-09-16] MEDS: APIXABAN 5 MG TAB (ELIQUIS) PO SCH ×2 (07:28→21:00)
[2022-09-16] MEDS: MIDODRINE 5 MG TAB PO SCH ×3 (07:29→16:00)
[2022-09-16] MEDS: INSULIN LISPRO (NovoLOG) PER UNIT SC SCH ×4 (07:29→21:00)
[2022-09-16 07:32] LABS: ALBUMIN 2.2 G/DL (3.2-5.2); BILIRUBIN,TOTAL 0.3 MG/DL (0.3-1.2); CALCIUM LEVEL 8.2 MG/DL (8.3-10.6); CREATININE FOR GFR 8.43 MG/DL (0.70-1.30); GLOMERULAR FILTRATION RATE 6.7 (>42); POTASSIUM SERUM 3.5 MMOL/L (3.5-5.1); TOTAL PROTEIN 5.3 G/DL (5.7-8.2)
[2022-09-16] MEDS: FUROSEMIDE 40 MG TAB PO SCH (09:04)
[2022-09-16] MEDS ORDERED: POTASSIUM CHLORIDE 10MEQ SR TABLET PO ONE (11:30)
[2022-09-16 12:20] VITALS: BP 154/72
[2022-09-16] MEDS: PERCOCET 5MG/325MG TAB PO PRN (12:57)
[2022-09-16 14:40] LABS: C REACTIVE PROTEIN QUANTITATIV 2.8 MG/DL (<1.0)
[2022-09-16 16:15] VITALS: BP 115/70
[2022-09-16] MEDS: PIPERACILLIN/TAZOBACTAM SOD 2.25 GM in D5W MINI-BAG PLUS 50 ML IV SCH ×2 (19:33→23:09)
[2022-09-16] MEDS: POTASSIUM CHLORIDE 10MEQ SR TABLET PO SCH (20:59)
[2022-09-16] MEDS: ATORVASTATIN 20 MG TAB PO SCH (21:00)
[2022-09-16] MEDS: LEVEMIR (INSULIN DETEMIR) 1 UNITS/0.01ML SC SCH (21:00)
[2022-09-17] MEDS: PIPERACILLIN/TAZOBACTAM SOD 2.25 GM in D5W MINI-BAG PLUS 50 ML IV SCH ×2 (05:22→12:35)
[2022-09-17 06:00] VITALS: BP 150/48
[2022-09-17 07:41] LABS: HEMATOCRIT 31.7 % (42.0-52.0); MEAN CORPUSCULAR HEMOGLOBIN 30.2 pg (27.0-33.0); MEAN CORPUSCULAR HGB CONC 31.5 g/dl (32.0-36.5); MEAN CORPUSCULAR VOLUME 95.8 fl (80.0-96.0); PLATELET COUNT, AUTOMATED 305 10^3/uL (150-450); RED BLOOD COUNT 3.31 10^6/uL (4.30-6.10); WHITE BLOOD COUNT 10.7 10^3/uL (4.0-10.0)
[2022-09-17] MEDS: MIDODRINE 5 MG TAB PO SCH ×3 (08:00→16:00)
[2022-09-17 08:08] LABS: C REACTIVE PROTEIN QUANTITATIV 3.2 MG/DL (<1.0)
[2022-09-17 09:01] LABS: ALBUMIN 2.4 G/DL (3.2-5.2); BILIRUBIN,TOTAL 0.4 MG/DL (0.3-1.2); CALCIUM LEVEL 8.8 MG/DL (8.3-10.6); CREATININE FOR GFR 8.55 MG/DL (0.70-1.30); GLOMERULAR FILTRATION RATE 6.6 (>42); POTASSIUM SERUM 3.9 MMOL/L (3.5-5.1); TOTAL PROTEIN 5.8 G/DL (5.7-8.2)
[2022-09-17 09:17] LABS: ERYTHROCYTE SEDIMENTATION RATE 61 mm/hr (0-20)
[2022-09-17] MEDS: DIGOXIN 0.125 MG TAB PO SCH (09:18)
[2022-09-17] MEDS: SUCROFERRIC OXYHYDROXIDE 500MG CHEW TAB (VELPHORO) PO SCH ×3 (09:18→18:15)
[2022-09-17] MEDS: SENNA 8.6 MG TAB (SENOKOT) PO SCH (09:18)
[2022-09-17] MEDS: FUROSEMIDE 40 MG TAB PO SCH (09:18)
[2022-09-17] MEDS: TAMSULOSIN 0.4 MG CAP PO SCH (09:18)
[2022-09-17] MEDS: LACTOBACILLUS ACIDOPHILUS CAP (BACID) PO SCH ×2 (09:18→18:15)
[2022-09-17] MEDS: POTASSIUM CHLORIDE 10MEQ SR TABLET PO SCH ×2 (09:19→19:45)
[2022-09-17] MEDS: MIRALAX *UNIT DOSE* 17GM PACKET PO SCH (09:19)
[2022-09-17] MEDS: APIXABAN 5 MG TAB (ELIQUIS) PO SCH ×2 (09:19→19:45)
[2022-09-17] MEDS: NYSTATIN 100,000 UNITS/GM TOPICAL PWD 15GM TOP SCH ×2 (09:19→20:00)
[2022-09-17] MEDS: MUPIROCIN 2% OINT 22 GM TUBE TOP SCH (09:20)
[2022-09-17] MEDS: INSULIN LISPRO (NovoLOG) PER UNIT SC SCH ×4 (09:20→19:59)
[2022-09-17 09:25] VITALS: BP 149/55
[2022-09-17 12:35] VITALS: BP 149/52
[2022-09-17 14:00] VITALS: BP 128/72
[2022-09-17] MEDS: PERCOCET 5MG/325MG TAB PO PRN (14:29)
[2022-09-17] MEDS ORDERED: LIDOCAINE 1% MDV 20ML VIAL As Ordered ONE (16:08)
[2022-09-17] MEDS: SODIUM CHLORIDE 0.9% INJ 10 ML SYR IV SCH (18:00)
[2022-09-17] MEDS: PIPERACILLIN/TAZOBACTAM SOD 4.5 GM in D5W MINI-BAG PLUS 50 ML IV SCH (19:44)
[2022-09-17] MEDS: ATORVASTATIN 20 MG TAB PO SCH (19:45)
[2022-09-17] MEDS: LEVEMIR (INSULIN DETEMIR) 1 UNITS/0.01ML SC SCH (19:59)
[2022-09-17 20:00] VITALS: BP 116/49
[2022-09-18] MEDS: SODIUM CHLORIDE 0.9% INJ 10 ML SYR IV SCH ×2 (04:54→17:42)
[2022-09-18 06:00] VITALS: BP 121/43
[2022-09-18] MEDS: MIDODRINE 5 MG TAB PO SCH ×3 (08:00→16:00)
[2022-09-18] MEDS: SUCROFERRIC OXYHYDROXIDE 500MG CHEW TAB (VELPHORO) PO SCH ×3 (09:42→17:41)
[2022-09-18] MEDS: LACTOBACILLUS ACIDOPHILUS CAP (BACID) PO SCH ×2 (09:56→17:41)
[2022-09-18] MEDS: TAMSULOSIN 0.4 MG CAP PO SCH (09:56)
[2022-09-18] MEDS: FUROSEMIDE 40 MG TAB PO SCH (09:57)
[2022-09-18] MEDS: MIRALAX *UNIT DOSE* 17GM PACKET PO SCH (09:57)
[2022-09-18] MEDS: APIXABAN 5 MG TAB (ELIQUIS) PO SCH ×2 (09:57→20:36)
[2022-09-18] MEDS: SENNA 8.6 MG TAB (SENOKOT) PO SCH (09:57)
[2022-09-18] MEDS: POTASSIUM CHLORIDE 10MEQ SR TABLET PO SCH ×2 (09:57→20:35)
[2022-09-18] MEDS: DIGOXIN 0.125 MG TAB PO SCH (09:57)
[2022-09-18] MEDS: PIPERACILLIN/TAZOBACTAM SOD 4.5 GM in D5W MINI-BAG PLUS 50 ML IV SCH ×2 (09:58→20:34)
[2022-09-18] MEDS: INSULIN LISPRO (NovoLOG) PER UNIT SC SCH ×4 (09:58→21:18)
[2022-09-18] MEDS: NYSTATIN 100,000 UNITS/GM TOPICAL PWD 15GM TOP SCH ×2 (10:00→20:38)
[2022-09-18 14:00] VITALS: BP 132/66
[2022-09-18 20:00] VITALS: BP 130/60
[2022-09-18] MEDS: ATORVASTATIN 20 MG TAB PO SCH (20:36)
[2022-09-18] MEDS: OMEPRAZOLE 20MG CAP PO PRN (20:37)
[2022-09-18] MEDS: SODIUM CHLORIDE 0.9% INJ 10 ML SYR IV PRN (20:38)
[2022-09-18] MEDS: LEVEMIR (INSULIN DETEMIR) 1 UNITS/0.01ML SC SCH (20:40)
[2022-09-19] MEDS: ACETAMINOPHEN TAB 650MG DOSE (2X325MG) PO PRN (04:59)
[2022-09-19] MEDS: SODIUM CHLORIDE 0.9% INJ 10 ML SYR IV SCH ×2 (04:59→17:22)
[2022-09-19 06:00] VITALS: BP 110/60
[2022-09-19] MEDS ORDERED: HEPARIN 1,000UNITS/ML 10ML VIAL (FOR RADIOLOGY & DIALYSIS ONLY) IV PRN (06:45)
[2022-09-19] MEDS ORDERED: HEPARIN 1,000UNITS/ML 10ML VIAL (FOR RADIOLOGY & DIALYSIS ONLY) XX SCH (06:45)
[2022-09-19] MEDS ORDERED: SODIUM CHLORIDE 0.9% 1000ML IV PRN (06:45)
[2022-09-19] MEDS ORDERED: LIDOCAINE 1% SDV 5ML VIAL SC PRN (06:45)
[2022-09-19] MEDS: TAMSULOSIN 0.4 MG CAP PO SCH (06:54)
[2022-09-19] MEDS: MIRALAX *UNIT DOSE* 17GM PACKET PO SCH (06:54)
[2022-09-19] MEDS: APIXABAN 5 MG TAB (ELIQUIS) PO SCH ×2 (06:54→19:52)
[2022-09-19] MEDS: FUROSEMIDE 40 MG TAB PO SCH (06:55)
[2022-09-19] MEDS: LACTOBACILLUS ACIDOPHILUS CAP (BACID) PO SCH ×2 (06:55→17:15)
[2022-09-19] MEDS: POTASSIUM CHLORIDE 10MEQ SR TABLET PO SCH ×2 (06:55→19:52)
[2022-09-19] MEDS: SENNA 8.6 MG TAB (SENOKOT) PO SCH (06:55)
[2022-09-19] MEDS: DIGOXIN 0.125 MG TAB PO SCH (06:57)
[2022-09-19] MEDS: SUCROFERRIC OXYHYDROXIDE 500MG CHEW TAB (VELPHORO) PO SCH ×3 (06:58→17:16)
[2022-09-19] MEDS: PIPERACILLIN/TAZOBACTAM SOD 4.5 GM in D5W MINI-BAG PLUS 50 ML IV SCH ×2 (08:00→19:50)
[2022-09-19] MEDS: MIDODRINE 5 MG TAB PO SCH ×3 (08:01→17:02)
[2022-09-19] MEDS: INSULIN LISPRO (NovoLOG) PER UNIT SC SCH ×6 (08:02→21:00)
[2022-09-19 08:03] LABS: HEMATOCRIT 29.9 % (42.0-52.0); HEMOGLOBIN 9.4 g/dl (13.5-17.5); MEAN CORPUSCULAR HEMOGLOBIN 30.5 pg (27.0-33.0); MEAN CORPUSCULAR HGB CONC 31.4 g/dl (32.0-36.5); MEAN CORPUSCULAR VOLUME 97.1 fl (80.0-96.0); PLATELET COUNT, AUTOMATED 289 10^3/uL (150-450); RED BLOOD COUNT 3.08 10^6/uL (4.30-6.10); WHITE BLOOD COUNT 10.9 10^3/uL (4.0-10.0)
[2022-09-19] MEDS: NYSTATIN 100,000 UNITS/GM TOPICAL PWD 15GM TOP SCH ×2 (08:03→19:51)
[2022-09-19] MEDS: MUPIROCIN 2% OINT 22 GM TUBE TOP SCH (08:03)
[2022-09-19 08:26] LABS: HEPATITIS B SURFACE ANTIBODY NEGATIVE (POSITIVE)
[2022-09-19 08:38] LABS: HEPATITIS B SURFACE ANTIGEN NEGATIVE (NEGATIVE)
[2022-09-19 08:59] LABS: HEPATITIS B CORE ANTIBODY IGM NEGATIVE (NEGATIVE); HEPATITIS C VIRUS ABY INDEX 0.1 INDEX (<0.8)
[2022-09-19 09:07] LABS: ALBUMIN 2.2 G/DL (3.2-5.2); BLOOD UREA NITROGEN 42 MG/DL (9-23); CALCIUM LEVEL 8.5 MG/DL (8.3-10.6); CARBON DIOXIDE LEVEL 28 MMOL/L (20-31); CHLORIDE LEVEL 101 MMOL/L (98-107); CREATININE FOR GFR 8.68 MG/DL (0.70-1.30); GLOMERULAR FILTRATION RATE 6.5 (>42); GLUCOSE, FASTING 173 MG/DL (74-106); POTASSIUM SERUM 4.2 MMOL/L (3.5-5.1); SODIUM LEVEL 139 MMOL/L (136-145)
[2022-09-19 14:00] VITALS: BP 110/58
[2022-09-19] MEDS: SODIUM CHLORIDE 0.9% INJ 10 ML SYR IV PRN (19:50)
[2022-09-19] MEDS: ATORVASTATIN 20 MG TAB PO SCH (19:52)
[2022-09-19] MEDS: LEVEMIR (INSULIN DETEMIR) 1 UNITS/0.01ML SC SCH (21:09)
[2022-09-19 21:10] VITALS: BP 122/58
[2022-09-20 04:50] VITALS: BP 143/56
[2022-09-20] MEDS: SODIUM CHLORIDE 0.9% INJ 10 ML SYR IV SCH ×2 (05:09→17:22)
[2022-09-20 05:58] LABS: BASO # 0.1 10^3/uL (0.0-0.2); EOS # 0.2 10^3/uL (0.0-0.5); EOS % 2.1 % (0.0-3.0); HEMATOCRIT 28.6 % (42.0-52.0); HEMOGLOBIN 9.1 g/dl (13.5-17.5); LYMPH # 1.6 10^3/uL (1.5-5.0); LYMPH % 16.1 % (24.0-44.0); MEAN CORPUSCULAR HEMOGLOBIN 30.8 pg (27.0-33.0); MEAN CORPUSCULAR HGB CONC 31.8 g/dl (32.0-36.5); MEAN CORPUSCULAR VOLUME 96.9 fl (80.0-96.0); MONO # 0.9 10^3/uL (0.0-0.8); NEUTROPHILS % 71.1 % (36.0-66.0); PLATELET COUNT, AUTOMATED 281 10^3/uL (150-450); RED BLOOD COUNT 2.95 10^6/uL (4.30-6.10); WHITE BLOOD COUNT 9.8 10^3/uL (4.0-10.0)
[2022-09-20 06:15] LABS: ERYTHROCYTE SEDIMENTATION RATE 58 mm/hr (0-20)
[2022-09-20 06:26] LABS: C REACTIVE PROTEIN QUANTITATIV 2.5 MG/DL (<1.0)
[2022-09-20 06:33] LABS: ALBUMIN 2.2 G/DL (3.2-5.2); CALCIUM LEVEL 8.6 MG/DL (8.3-10.6); CREATININE FOR GFR 6.7 MG/DL (0.70-1.30); GLOMERULAR FILTRATION RATE 8.7 (>42); PHOSPHORUS LEVEL 2.9 MG/DL (2.4-5.1); POTASSIUM SERUM 4.5 MMOL/L (3.5-5.1)
[2022-09-20] MEDS: ACETAMINOPHEN TAB 650MG DOSE (2X325MG) PO PRN ×2 (06:42→14:21)
[2022-09-20] MEDS: MIDODRINE 5 MG TAB PO SCH ×3 (08:00→17:23)
[2022-09-20] MEDS: SUCROFERRIC OXYHYDROXIDE 500MG CHEW TAB (VELPHORO) PO SCH ×3 (08:00→17:20)
[2022-09-20] MEDS: SENNA 8.6 MG TAB (SENOKOT) PO SCH (08:23)
[2022-09-20] MEDS: NYSTATIN 100,000 UNITS/GM TOPICAL PWD 15GM TOP SCH ×2 (08:23→20:26)
[2022-09-20] MEDS: LACTOBACILLUS ACIDOPHILUS CAP (BACID) PO SCH ×2 (08:23→17:20)
[2022-09-20] MEDS: POTASSIUM CHLORIDE 10MEQ SR TABLET PO SCH ×2 (08:23→20:15)
[2022-09-20] MEDS: PIPERACILLIN/TAZOBACTAM SOD 4.5 GM in D5W MINI-BAG PLUS 50 ML IV SCH ×2 (08:23→20:16)
[2022-09-20] MEDS: TAMSULOSIN 0.4 MG CAP PO SCH (08:23)
[2022-09-20] MEDS: INSULIN LISPRO (NovoLOG) PER UNIT SC SCH ×7 (08:24→20:16)
[2022-09-20] MEDS: MIRALAX *UNIT DOSE* 17GM PACKET PO SCH (08:24)
[2022-09-20] MEDS: DIGOXIN 0.125 MG TAB PO SCH (08:28)
[2022-09-20] MEDS: FUROSEMIDE 40 MG TAB PO SCH (08:29)
[2022-09-20] MEDS: APIXABAN 5 MG TAB (ELIQUIS) PO SCH ×2 (09:41→20:15)
[2022-09-20 12:37] VITALS: BP 162/98
[2022-09-20 15:00] VITALS: BP 123/52
[2022-09-20] MEDS: ATORVASTATIN 20 MG TAB PO SCH (20:15)
[2022-09-20] MEDS: LEVEMIR (INSULIN DETEMIR) 1 UNITS/0.01ML SC SCH (20:25)
[2022-09-20 20:50] VITALS: BP 168/78
[2022-09-20 23:10] VITALS: BP 150/68
[2022-09-21] MEDS: ACETAMINOPHEN TAB 650MG DOSE (2X325MG) PO PRN ×3 (00:20→21:29)
[2022-09-21 05:33] LABS: BASO # 0.1 10^3/uL (0.0-0.2); BASO % 0.9 % (0.0-1.0); EOS # 0.3 10^3/uL (0.0-0.5); EOS % 2.5 % (0.0-3.0); HEMATOCRIT 28.4 % (42.0-52.0); HEMOGLOBIN 8.7 g/dl (13.5-17.5); LYMPH # 1.6 10^3/uL (1.5-5.0); LYMPH % 14.9 % (24.0-44.0); MEAN CORPUSCULAR HEMOGLOBIN 30.3 pg (27.0-33.0); MEAN CORPUSCULAR HGB CONC 30.6 g/dl (32.0-36.5); MONO # 0.9 10^3/uL (0.0-0.8); MONO % 8.8 % (2.0-8.0); NEUTROPHILS # 7.7 10^3/uL (1.5-8.5); NEUTROPHILS % 72.4 % (36.0-66.0); PLATELET COUNT, AUTOMATED 250 10^3/uL (150-450); RED BLOOD COUNT 2.87 10^6/uL (4.30-6.10); WHITE BLOOD COUNT 10.6 10^3/uL (4.0-10.0)
[2022-09-21] MEDS: SODIUM CHLORIDE 0.9% INJ 10 ML SYR IV SCH ×2 (05:34→17:46)
[2022-09-21] MEDS: SENNA 8.6 MG TAB (SENOKOT) PO SCH (05:34)
[2022-09-21] MEDS: APIXABAN 5 MG TAB (ELIQUIS) PO SCH ×2 (05:35→21:25)
[2022-09-21] MEDS: FUROSEMIDE 40 MG TAB PO SCH (05:35)
[2022-09-21] MEDS: POTASSIUM CHLORIDE 10MEQ SR TABLET PO SCH ×2 (05:35→21:25)
[2022-09-21] MEDS: TAMSULOSIN 0.4 MG CAP PO SCH (05:35)
[2022-09-21] MEDS: DIGOXIN 0.125 MG TAB PO SCH (05:39)
[2022-09-21 06:00] VITALS: BP 132/58
[2022-09-21] MEDS ORDERED: HEPARIN 1,000UNITS/ML 10ML VIAL (FOR RADIOLOGY & DIALYSIS ONLY) IV PRN (06:00)
[2022-09-21] MEDS ORDERED: SODIUM CHLORIDE 0.9% 1000ML IV PRN (06:00)
[2022-09-21] MEDS ORDERED: HEPARIN 1,000UNITS/ML 10ML VIAL (FOR RADIOLOGY & DIALYSIS ONLY) XX SCH (06:00)
[2022-09-21] MEDS ORDERED: LIDOCAINE 1% SDV 5ML VIAL SC PRN (06:00)
[2022-09-21 06:03] LABS: ALBUMIN 1.9 G/DL (3.2-5.2); CALCIUM LEVEL 8.4 MG/DL (8.3-10.6); CREATININE FOR GFR 7.5 MG/DL (0.70-1.30); GLOMERULAR FILTRATION RATE 7.6 (>42); PHOSPHORUS LEVEL 3.8 MG/DL (2.4-5.1); POTASSIUM SERUM 4.6 MMOL/L (3.5-5.1)
[2022-09-21] MEDS: SUCROFERRIC OXYHYDROXIDE 500MG CHEW TAB (VELPHORO) PO SCH ×3 (07:24→17:40)
[2022-09-21] MEDS: MIDODRINE 5 MG TAB PO SCH ×3 (07:24→15:46)
[2022-09-21] MEDS: MIRALAX *UNIT DOSE* 17GM PACKET PO SCH (07:45)
[2022-09-21] MEDS: LACTOBACILLUS ACIDOPHILUS CAP (BACID) PO SCH ×2 (07:45→17:44)
[2022-09-21] MEDS: PIPERACILLIN/TAZOBACTAM SOD 4.5 GM in D5W MINI-BAG PLUS 50 ML IV SCH ×2 (07:45→21:23)
[2022-09-21] MEDS: INSULIN LISPRO (NovoLOG) PER UNIT SC SCH ×7 (07:46→21:27)
[2022-09-21] MEDS: NYSTATIN 100,000 UNITS/GM TOPICAL PWD 15GM TOP SCH ×2 (07:47→21:26)
[2022-09-21] MEDS: MUPIROCIN 2% OINT 22 GM TUBE TOP SCH (07:47)
[2022-09-21 14:00] VITALS: BP 132/46
[2022-09-21 21:12] VITALS: BP 150/61
[2022-09-21] MEDS: LEVEMIR (INSULIN DETEMIR) 1 UNITS/0.01ML SC SCH (21:25)
[2022-09-21] MEDS: ATORVASTATIN 20 MG TAB PO SCH (21:25)
[2022-09-21] MEDS: SODIUM CHLORIDE 0.9% INJ 10 ML SYR IV PRN (22:39)
[2022-09-22] MEDS: PERCOCET 5MG/325MG TAB PO PRN ×2 (02:00→21:44)
[2022-09-22] MEDS: SODIUM CHLORIDE 0.9% INJ 10 ML SYR IV SCH ×2 (05:27→09:14)
[2022-09-22 05:48] LABS: BASO # 0.1 10^3/uL (0.0-0.2); EOS # 0.2 10^3/uL (0.0-0.5); EOS % 2.5 % (0.0-3.0); HEMATOCRIT 27.6 % (42.0-52.0); HEMOGLOBIN 8.6 g/dl (13.5-17.5); LYMPH # 1.6 10^3/uL (1.5-5.0); LYMPH % 16.4 % (24.0-44.0); MEAN CORPUSCULAR HEMOGLOBIN 30.5 pg (27.0-33.0); MEAN CORPUSCULAR HGB CONC 31.2 g/dl (32.0-36.5); MEAN CORPUSCULAR VOLUME 97.9 fl (80.0-96.0); MONO # 0.8 10^3/uL (0.0-0.8); MONO % 8.5 % (2.0-8.0); NEUTROPHILS # 6.8 10^3/uL (1.5-8.5); NEUTROPHILS % 70.8 % (36.0-66.0); PLATELET COUNT, AUTOMATED 240 10^3/uL (150-450); RED BLOOD COUNT 2.82 10^6/uL (4.30-6.10); WHITE BLOOD COUNT 9.6 10^3/uL (4.0-10.0)
[2022-09-22 06:00] VITALS: BP 155/60
[2022-09-22 06:10] LABS: C REACTIVE PROTEIN QUANTITATIV 1.7 MG/DL (<1.0)
[2022-09-22 06:12] LABS: CALCIUM LEVEL 7.8 MG/DL (8.3-10.6); CREATININE FOR GFR 7.94 MG/DL (0.70-1.30); GLOMERULAR FILTRATION RATE 7.2 (>42); PHOSPHORUS LEVEL 4.2 MG/DL (2.4-5.1); POTASSIUM SERUM 4.5 MMOL/L (3.5-5.1)
[2022-09-22 06:15] LABS: ERYTHROCYTE SEDIMENTATION RATE 55 mm/hr (0-20)
[2022-09-22] MEDS: SUCROFERRIC OXYHYDROXIDE 500MG CHEW TAB (VELPHORO) PO SCH ×3 (08:00→18:00)
[2022-09-22] MEDS: PIPERACILLIN/TAZOBACTAM SOD 4.5 GM in D5W MINI-BAG PLUS 50 ML IV SCH ×2 (09:07→20:14)
[2022-09-22] MEDS: INSULIN LISPRO (NovoLOG) PER UNIT SC SCH ×7 (09:07→20:06)
[2022-09-22] MEDS: MIDODRINE 5 MG TAB PO SCH ×3 (09:08→16:00)
[2022-09-22] MEDS: FUROSEMIDE 40 MG TAB PO SCH (09:09)
[2022-09-22] MEDS: LACTOBACILLUS ACIDOPHILUS CAP (BACID) PO SCH ×2 (09:09→18:17)
[2022-09-22] MEDS: MIRALAX *UNIT DOSE* 17GM PACKET PO SCH (09:09)
[2022-09-22] MEDS: APIXABAN 5 MG TAB (ELIQUIS) PO SCH ×2 (09:09→20:16)
[2022-09-22] MEDS: TAMSULOSIN 0.4 MG CAP PO SCH (09:09)
[2022-09-22] MEDS: POTASSIUM CHLORIDE 10MEQ SR TABLET PO SCH ×2 (09:09→20:15)
[2022-09-22] MEDS: SENNA 8.6 MG TAB (SENOKOT) PO SCH (09:09)
[2022-09-22] MEDS: DIGOXIN 0.125 MG TAB PO SCH (09:10)
[2022-09-22] MEDS: NYSTATIN 100,000 UNITS/GM TOPICAL PWD 15GM TOP SCH ×2 (09:10→20:16)
[2022-09-22] MEDS: DARBEPOETIN 200MCG/0.4ML *NON-DIALYSIS* SYRINGE SC SCH (09:19)
[2022-09-22 14:00] VITALS: BP 124/47
[2022-09-22 19:42] VITALS: BP 113/69
[2022-09-22] MEDS: LEVEMIR (INSULIN DETEMIR) 1 UNITS/0.01ML SC SCH (20:14)
[2022-09-22] MEDS: ATORVASTATIN 20 MG TAB PO SCH (20:14)
[2022-09-23] MEDS: SODIUM CHLORIDE 0.9% INJ 10 ML SYR IV SCH ×2 (05:29→18:05)
[2022-09-23 05:33] VITALS: BP 152/63
[2022-09-23 06:07] LABS: BASO # 0.1 10^3/uL (0.0-0.2); BASO % 0.8 % (0.0-1.0); EOS # 0.2 10^3/uL (0.0-0.5); EOS % 2.3 % (0.0-3.0); LYMPH # 1.5 10^3/uL (1.5-5.0); LYMPH % 14.8 % (24.0-44.0); MEAN CORPUSCULAR HEMOGLOBIN 30.6 pg (27.0-33.0); MEAN CORPUSCULAR VOLUME 98.6 fl (80.0-96.0); MONO # 0.9 10^3/uL (0.0-0.8); MONO % 8.6 % (2.0-8.0); NEUTROPHILS # 7.6 10^3/uL (1.5-8.5); NEUTROPHILS % 72.6 % (36.0-66.0); PLATELET COUNT, AUTOMATED 230 10^3/uL (150-450); RED BLOOD COUNT 2.94 10^6/uL (4.30-6.10); WHITE BLOOD COUNT 10.4 10^3/uL (4.0-10.0)
[2022-09-23 06:41] LABS: ALBUMIN 2.2 G/DL (3.2-5.2); CALCIUM LEVEL 8.1 MG/DL (8.3-10.6); CREATININE FOR GFR 8.22 MG/DL (0.70-1.30); GLOMERULAR FILTRATION RATE 6.9 (>42); PHOSPHORUS LEVEL 4.3 MG/DL (2.4-5.1); POTASSIUM SERUM 4.6 MMOL/L (3.5-5.1)
[2022-09-23] MEDS: INSULIN LISPRO (NovoLOG) PER UNIT SC SCH ×7 (07:30→21:00)
[2022-09-23] MEDS: SUCROFERRIC OXYHYDROXIDE 500MG CHEW TAB (VELPHORO) PO SCH ×3 (07:57→17:45)
[2022-09-23] MEDS: MIDODRINE 5 MG TAB PO SCH ×3 (08:00→15:38)
[2022-09-23] MEDS: PIPERACILLIN/TAZOBACTAM SOD 4.5 GM in D5W MINI-BAG PLUS 50 ML IV SCH ×2 (08:29→20:04)
[2022-09-23] MEDS: FUROSEMIDE 40 MG TAB PO SCH (08:30)
[2022-09-23] MEDS: SENNA 8.6 MG TAB (SENOKOT) PO SCH (08:30)
[2022-09-23] MEDS: LACTOBACILLUS ACIDOPHILUS CAP (BACID) PO SCH ×2 (08:30→17:46)
[2022-09-23] MEDS: POTASSIUM CHLORIDE 10MEQ SR TABLET PO SCH ×2 (08:31→20:07)
[2022-09-23] MEDS: DIGOXIN 0.125 MG TAB PO SCH (08:33)
[2022-09-23] MEDS: TAMSULOSIN 0.4 MG CAP PO SCH (08:33)
[2022-09-23] MEDS: MIRALAX *UNIT DOSE* 17GM PACKET PO SCH (08:34)
[2022-09-23] MEDS: NYSTATIN 100,000 UNITS/GM TOPICAL PWD 15GM TOP SCH ×2 (08:34→20:08)
[2022-09-23] MEDS: MUPIROCIN 2% OINT 22 GM TUBE TOP SCH (09:00)
[2022-09-23] MEDS ORDERED: LEVEMIR (INSULIN DETEMIR) 1 UNITS/0.01ML SC SCH ×2 (09:00)
[2022-09-23] MEDS: SODIUM CHLORIDE 0.9% INJ 10 ML SYR IV PRN (10:11)
[2022-09-23] MEDS: PERCOCET 5MG/325MG TAB PO PRN ×2 (10:21→22:12)
[2022-09-23 14:00] VITALS: BP 121/58
[2022-09-23] MEDS: OMEPRAZOLE 20MG CAP PO PRN (15:34)
[2022-09-23] MEDS ORDERED: HEPARIN SOD (PORCINE) 5000UNITS/ML 1ML VIAL/SYRINGE PD ONE (18:00)
[2022-09-23 19:05] LABS: APPEARANCE, URINE CLEAR (CLEAR); BACTERIA, URINE AUTO NEGATIVE (NEGATIVE); BILIRUBIN, URINE AUTO NEGATIVE (NEGATIVE); BLOOD, URINE BLOOD 3+ (NEGATIVE); COLOR, URINE STRAW (YELLOW); GLUCOSE, URINE (UA) AUTO 2+ mg/dL (NEGATIVE); KETONE, URINE AUTO NEGATIVE (NEGATIVE); LEUKOCYTE ESTERASE, URINE AUTO NEGATIVE (NEGATIVE); NITRITE, URINE AUTO NEGATIVE (NEGATIVE); PROTEIN, URINE AUTO 2+ mg/dL (NEGATIVE); RBC, URINE AUTO TNTC /HPF (0-3); SPECIFIC GRAVITY URINE AUTO 1.009 (1.002-1.035); SQUAMOUS EPITHELIAL CELL UR AU 0 /HPF (0-6); UROBILINOGEN, URINE AUTO 0.2 mg/dL (0.0-2.0); WBC, URINE AUTO 6 /HPF (0-3)
[2022-09-23] MEDS: ATORVASTATIN 20 MG TAB PO SCH (20:07)
[2022-09-23] MEDS ORDERED: APIXABAN 5 MG TAB (ELIQUIS) PO ONE (21:00)
[2022-09-23 21:40] VITALS: BP 155/76
[2022-09-23] MEDS: LEVEMIR (INSULIN DETEMIR) 1 UNITS/0.01ML SC SCH (22:13)
[2022-09-24 04:40] VITALS: BP 150/56
[2022-09-24] MEDS: SODIUM CHLORIDE 0.9% INJ 10 ML SYR IV SCH ×2 (06:04→17:58)
[2022-09-24 06:31] LABS: BASO # 0.1 10^3/uL (0.0-0.2); BASO % 1.1 % (0.0-1.0); EOS # 0.2 10^3/uL (0.0-0.5); EOS % 2.2 % (0.0-3.0); HEMATOCRIT 29.6 % (42.0-52.0); HEMOGLOBIN 9.3 g/dl (13.5-17.5); LYMPH # 1.7 10^3/uL (1.5-5.0); LYMPH % 16.8 % (24.0-44.0); MEAN CORPUSCULAR HEMOGLOBIN 30.8 pg (27.0-33.0); MEAN CORPUSCULAR HGB CONC 31.4 g/dl (32.0-36.5); MONO # 0.9 10^3/uL (0.0-0.8); MONO % 8.8 % (2.0-8.0); NEUTROPHILS # 7.2 10^3/uL (1.5-8.5); NEUTROPHILS % 70.5 % (36.0-66.0); PLATELET COUNT, AUTOMATED 227 10^3/uL (150-450); RED BLOOD COUNT 3.02 10^6/uL (4.30-6.10); WHITE BLOOD COUNT 10.2 10^3/uL (4.0-10.0)
[2022-09-24 06:38] LABS: C REACTIVE PROTEIN QUANTITATIV 2.4 MG/DL (<1.0)
[2022-09-24 06:56] LABS: ALBUMIN 2.3 G/DL (3.2-5.2); CALCIUM LEVEL 8.2 MG/DL (8.3-10.6); CREATININE FOR GFR 8.26 MG/DL (0.70-1.30); GLOMERULAR FILTRATION RATE 6.8 (>42); PHOSPHORUS LEVEL 4.8 MG/DL (2.4-5.1); POTASSIUM SERUM 4.8 MMOL/L (3.5-5.1)
[2022-09-24 06:58] LABS: ERYTHROCYTE SEDIMENTATION RATE 68 mm/hr (0-20)
[2022-09-24] MEDS: INSULIN LISPRO (NovoLOG) PER UNIT SC SCH ×7 (07:30→21:00)
[2022-09-24] MEDS: SUCROFERRIC OXYHYDROXIDE 500MG CHEW TAB (VELPHORO) PO SCH ×3 (08:00→17:56)
[2022-09-24] MEDS: MIDODRINE 5 MG TAB PO SCH ×3 (08:00→16:24)
[2022-09-24 08:30] VITALS: BP 157/61
[2022-09-24] MEDS: SENNA 8.6 MG TAB (SENOKOT) PO SCH (09:00)
[2022-09-24] MEDS: MIRALAX *UNIT DOSE* 17GM PACKET PO SCH (09:00)
[2022-09-24] MEDS: LACTOBACILLUS ACIDOPHILUS CAP (BACID) PO SCH ×2 (09:14→17:56)
[2022-09-24] MEDS: PIPERACILLIN/TAZOBACTAM SOD 4.5 GM in D5W MINI-BAG PLUS 50 ML IV SCH ×2 (09:15→20:44)
[2022-09-24] MEDS: TAMSULOSIN 0.4 MG CAP PO SCH (09:29)
[2022-09-24] MEDS: FUROSEMIDE 40 MG TAB PO SCH (09:29)
[2022-09-24] MEDS: DIGOXIN 0.125 MG TAB PO SCH (09:30)
[2022-09-24] MEDS: POTASSIUM CHLORIDE 10MEQ SR TABLET PO SCH ×2 (09:30→22:35)
[2022-09-24] MEDS: NYSTATIN 100,000 UNITS/GM TOPICAL PWD 15GM TOP SCH ×2 (10:21→22:39)
[2022-09-24] MEDS ORDERED: APIXABAN 5 MG TAB (ELIQUIS) PO SCH (10:25)
[2022-09-24] MEDS: APIXABAN 5 MG TAB (ELIQUIS) PO SCH (11:35)
[2022-09-24 14:00] VITALS: BP 101/61
[2022-09-24 16:00] VITALS: BP 123/88
[2022-09-24 21:02] VITALS: BP 125/85
[2022-09-24] MEDS ORDERED: HEPARIN SOD (PORCINE) 5000UNITS/ML 1ML VIAL/SYRINGE PD ONE (22:00)
[2022-09-24] MEDS: ATORVASTATIN 20 MG TAB PO SCH (22:34)
[2022-09-24] MEDS: PERCOCET 5MG/325MG TAB PO PRN (22:35)
[2022-09-24] MEDS: LEVEMIR (INSULIN DETEMIR) 1 UNITS/0.01ML SC SCH (22:36)
[2022-09-24] MEDS: OMEPRAZOLE 20MG CAP PO PRN (22:41)
[2022-09-25] VITALS (7 sets, daily range): BP systolic 101–156; BP diastolic 49–75
[2022-09-25 05:40] LABS: BASO # 0.1 10^3/uL (0.0-0.2); BASO % 1.1 % (0.0-1.0); EOS # 0.2 10^3/uL (0.0-0.5); EOS % 2.1 % (0.0-3.0); HEMATOCRIT 29.9 % (42.0-52.0); HEMOGLOBIN 9.1 g/dl (13.5-17.5); LYMPH # 1.4 10^3/uL (1.5-5.0); MEAN CORPUSCULAR HEMOGLOBIN 30.1 pg (27.0-33.0); MEAN CORPUSCULAR HGB CONC 30.4 g/dl (32.0-36.5); MONO # 0.9 10^3/uL (0.0-0.8); MONO % 9.3 % (2.0-8.0); NEUTROPHILS # 7.1 10^3/uL (1.5-8.5); NEUTROPHILS % 72.9 % (36.0-66.0); PLATELET COUNT, AUTOMATED 241 10^3/uL (150-450); RED BLOOD COUNT 3.02 10^6/uL (4.30-6.10); WHITE BLOOD COUNT 9.7 10^3/uL (4.0-10.0)
[2022-09-25] MEDS: SODIUM CHLORIDE 0.9% INJ 10 ML SYR IV SCH ×2 (05:46→17:50)
[2022-09-25] MEDS ORDERED: HEPARIN SOD (PORCINE) 5000UNITS/ML 1ML VIAL/SYRINGE PD ONE ×5 (06:00→22:00)
[2022-09-25 06:09] LABS: ALBUMIN 2.2 G/DL (3.2-5.2); CALCIUM LEVEL 8.2 MG/DL (8.3-10.6); CREATININE FOR GFR 8.2 MG/DL (0.70-1.30); GLOMERULAR FILTRATION RATE 6.9 (>42); PHOSPHORUS LEVEL 4.2 MG/DL (2.4-5.1); POTASSIUM SERUM 4.7 MMOL/L (3.5-5.1)
[2022-09-25] MEDS: INSULIN LISPRO (NovoLOG) PER UNIT SC SCH ×7 (07:30→20:37)
[2022-09-25] MEDS: MIDODRINE 5 MG TAB PO SCH ×3 (08:00→16:00)
[2022-09-25] MEDS: SUCROFERRIC OXYHYDROXIDE 500MG CHEW TAB (VELPHORO) PO SCH ×3 (08:00→17:47)
[2022-09-25] MEDS ORDERED: fentaNYL 100 MCG/2 ML INJECTION As Ordered ONE ×2 (08:02→09:33)
[2022-09-25] MEDS ORDERED: ISOVUE-300 61% 100ML VIAL As Ordered ONE (08:03)
[2022-09-25] MEDS ORDERED: MIDAZOLAM INJ 2MG/2ML VIAL As Ordered ONE (08:03)
[2022-09-25] MEDS ORDERED: LIDOCAINE 1% MDV 20ML VIAL As Ordered ONE ×2 (08:03→11:23)
[2022-09-25] MEDS ORDERED: HEPARIN 1,000UNITS/ML 10ML VIAL (FOR RADIOLOGY & DIALYSIS ONLY) As Ordered ONE (08:03)
[2022-09-25] MEDS: MIRALAX *UNIT DOSE* 17GM PACKET PO SCH (09:00)
[2022-09-25] MEDS: PIPERACILLIN/TAZOBACTAM SOD 4.5 GM in D5W MINI-BAG PLUS 50 ML IV SCH ×2 (09:03→20:48)
[2022-09-25] MEDS ORDERED: NITROGLYCERIN IN D5W 25MG/250ML (100MCG/ML) As Ordered ONE (10:08)
[2022-09-25] MEDS ORDERED: ASPIRIN 325 MG TAB PO ONE (12:00)
[2022-09-25] MEDS: POLYVINYL ALCOHOL OPHTH SOLN 15ML (LIQUITEARS) OU PRN (12:45)
[2022-09-25] MEDS: MUPIROCIN 2% OINT 22 GM TUBE TOP SCH (12:45)
[2022-09-25] MEDS: NYSTATIN 100,000 UNITS/GM TOPICAL PWD 15GM TOP SCH ×2 (12:47→20:49)
[2022-09-25] MEDS: LACTOBACILLUS ACIDOPHILUS CAP (BACID) PO SCH ×2 (13:15→17:49)
[2022-09-25] MEDS: SENNA 8.6 MG TAB (SENOKOT) PO SCH (13:15)
[2022-09-25] MEDS: FUROSEMIDE 40 MG TAB PO SCH (13:15)
[2022-09-25] MEDS: POTASSIUM CHLORIDE 10MEQ SR TABLET PO SCH ×2 (13:16→20:47)
[2022-09-25] MEDS: DIGOXIN 0.125 MG TAB PO SCH (13:16)
[2022-09-25] MEDS: TAMSULOSIN 0.4 MG CAP PO SCH (13:16)
[2022-09-25] MEDS: APIXABAN 5 MG TAB (ELIQUIS) PO SCH (20:47)
[2022-09-25] MEDS: ATORVASTATIN 20 MG TAB PO SCH (20:47)
[2022-09-25] MEDS: LEVEMIR (INSULIN DETEMIR) 1 UNITS/0.01ML SC SCH (20:48)
[2022-09-25] MEDS: PERCOCET 5MG/325MG TAB PO PRN (21:12)
[2022-09-25] MEDS: SODIUM CHLORIDE 0.9% INJ 10 ML SYR IV PRN (22:13)
[2022-09-26 05:43] LABS: ERYTHROCYTE SEDIMENTATION RATE 62 mm/hr (0-20)
[2022-09-26 06:00] VITALS: BP 149/71
[2022-09-26] MEDS: SODIUM CHLORIDE 0.9% INJ 10 ML SYR IV SCH ×2 (06:05→17:37)
[2022-09-26 06:09] LABS: C REACTIVE PROTEIN QUANTITATIV 3.8 MG/DL (<1.0)
[2022-09-26] MEDS: INSULIN LISPRO (NovoLOG) PER UNIT SC SCH ×7 (07:30→20:32)
[2022-09-26] MEDS: SUCROFERRIC OXYHYDROXIDE 500MG CHEW TAB (VELPHORO) PO SCH ×3 (08:00→17:33)
[2022-09-26] MEDS: MIDODRINE 5 MG TAB PO SCH ×3 (08:00→16:47)
[2022-09-26 08:21] LABS: CREATININE FOR GFR 8.23 MG/DL (0.70-1.30); GLOMERULAR FILTRATION RATE 6.9 (>42); MAGNESIUM LEVEL 1.9 MG/DL (1.8-2.4); POTASSIUM SERUM 4.7 MMOL/L (3.5-5.1)
[2022-09-26 08:22] LABS: BASO # 0.1 10^3/uL (0.0-0.2); BASO % 1.1 % (0.0-1.0); EOS # 0.2 10^3/uL (0.0-0.5); EOS % 1.7 % (0.0-3.0); HEMATOCRIT 30.8 % (42.0-52.0); HEMOGLOBIN 9.7 g/dl (13.5-17.5); LYMPH # 1.2 10^3/uL (1.5-5.0); LYMPH % 12.4 % (24.0-44.0); MEAN CORPUSCULAR HGB CONC 31.5 g/dl (32.0-36.5); MEAN CORPUSCULAR VOLUME 98.4 fl (80.0-96.0); MONO # 0.9 10^3/uL (0.0-0.8); MONO % 9.2 % (2.0-8.0); NEUTROPHILS % 75.1 % (36.0-66.0); PLATELET COUNT, AUTOMATED 220 10^3/uL (150-450); RED BLOOD COUNT 3.13 10^6/uL (4.30-6.10); WHITE BLOOD COUNT 9.4 10^3/uL (4.0-10.0)
[2022-09-26] MEDS: SENNA 8.6 MG TAB (SENOKOT) PO SCH (09:00)
[2022-09-26] MEDS: MIRALAX *UNIT DOSE* 17GM PACKET PO SCH (09:00)
[2022-09-26] MEDS: TAMSULOSIN 0.4 MG CAP PO SCH (09:08)
[2022-09-26] MEDS: LACTOBACILLUS ACIDOPHILUS CAP (BACID) PO SCH ×2 (09:08→17:34)
[2022-09-26] MEDS: APIXABAN 5 MG TAB (ELIQUIS) PO SCH ×2 (09:08→20:31)
[2022-09-26] MEDS: ASPIRIN 81MG ENTERIC TABLET PO SCH (09:08)
[2022-09-26] MEDS: DIGOXIN 0.125 MG TAB PO SCH (09:09)
[2022-09-26] MEDS: FUROSEMIDE 40 MG TAB PO SCH (09:09)
[2022-09-26] MEDS: OMEPRAZOLE 20MG CAP PO PRN (09:09)
[2022-09-26] MEDS: POTASSIUM CHLORIDE 10MEQ SR TABLET PO SCH ×2 (09:09→20:29)
[2022-09-26] MEDS: PIPERACILLIN/TAZOBACTAM SOD 4.5 GM in D5W MINI-BAG PLUS 50 ML IV SCH ×2 (09:10→20:00)
[2022-09-26] MEDS: NYSTATIN 100,000 UNITS/GM TOPICAL PWD 15GM TOP SCH ×2 (09:10→21:07)
[2022-09-26 09:12] VITALS: BP 147/69
[2022-09-26 09:35] LABS: CK-MB VALUE MASS 1.6 NG/ML (<3.6)
[2022-09-26 09:44] LABS: MB/CK RELATIVE INDEX 3.07 (< OR =4)
[2022-09-26] MEDS: SODIUM CHLORIDE 0.9% INJ 10 ML SYR IV PRN (10:18)
[2022-09-26 10:40] LABS: CK-MB VALUE MASS 2.5 NG/ML (<3.6)
[2022-09-26 10:41] LABS: MB/CK RELATIVE INDEX 5.2 (< OR =4)
[2022-09-26] MEDS ORDERED: ISOVUE-370 76% 100ML VIAL As Ordered ONE (11:26)
[2022-09-26] MEDS: PERCOCET 5MG/325MG TAB PO PRN (11:56)
[2022-09-26 16:44] VITALS: BP 98/54
[2022-09-26 20:00] VITALS: BP 134/58
[2022-09-26] MEDS: ATORVASTATIN 20 MG TAB PO SCH (20:31)
[2022-09-26] MEDS: LEVEMIR (INSULIN DETEMIR) 1 UNITS/0.01ML SC SCH (20:32)
[2022-09-26 23:50] VITALS: BP 103/79
[2022-09-27] VITALS (25 sets, daily range): BP systolic 95–142; BP diastolic 54–83; O2SAT 82–98
[2022-09-27 04:19] LABS: BASO # 0.1 10^3/uL (0.0-0.2); EOS # 0.2 10^3/uL (0.0-0.5); EOS % 2.4 % (0.0-3.0); HEMATOCRIT 31.4 % (42.0-52.0); HEMOGLOBIN 9.7 g/dl (13.5-17.5); LYMPH # 1.5 10^3/uL (1.5-5.0); LYMPH % 15.2 % (24.0-44.0); MEAN CORPUSCULAR HEMOGLOBIN 30.3 pg (27.0-33.0); MEAN CORPUSCULAR HGB CONC 30.9 g/dl (32.0-36.5); MEAN CORPUSCULAR VOLUME 98.1 fl (80.0-96.0); MONO # 0.9 10^3/uL (0.0-0.8); MONO % 9.2 % (2.0-8.0); NEUTROPHILS # 6.9 10^3/uL (1.5-8.5); NEUTROPHILS % 71.8 % (36.0-66.0); PLATELET COUNT, AUTOMATED 214 10^3/uL (150-450); WHITE BLOOD COUNT 9.7 10^3/uL (4.0-10.0)
[2022-09-27 04:47] LABS: CALCIUM LEVEL 7.9 MG/DL (8.3-10.6); CREATININE FOR GFR 8.3 MG/DL (0.70-1.30); GLOMERULAR FILTRATION RATE 6.8 (>42); MAGNESIUM LEVEL 1.9 MG/DL (1.8-2.4); POTASSIUM SERUM 4.4 MMOL/L (3.5-5.1)
[2022-09-27] MEDS: SODIUM CHLORIDE 0.9% INJ 10 ML SYR IV SCH ×2 (06:02→17:04)
[2022-09-27] MEDS: INSULIN LISPRO (NovoLOG) PER UNIT SC SCH ×7 (07:30→20:29)
[2022-09-27] MEDS: MIDODRINE 5 MG TAB PO SCH ×3 (08:00→17:03)
[2022-09-27] MEDS: SUCROFERRIC OXYHYDROXIDE 500MG CHEW TAB (VELPHORO) PO SCH ×3 (08:00→17:02)
[2022-09-27] MEDS: PIPERACILLIN/TAZOBACTAM SOD 4.5 GM in D5W MINI-BAG PLUS 50 ML IV SCH ×2 (08:55→20:28)
[2022-09-27] MEDS: POTASSIUM CHLORIDE 10MEQ SR TABLET PO SCH ×2 (08:56→20:29)
[2022-09-27] MEDS: APIXABAN 5 MG TAB (ELIQUIS) PO SCH ×2 (08:56→20:29)
[2022-09-27] MEDS: LACTOBACILLUS ACIDOPHILUS CAP (BACID) PO SCH ×2 (08:56→17:03)
[2022-09-27] MEDS: ASPIRIN 81MG ENTERIC TABLET PO SCH (08:56)
[2022-09-27] MEDS: TAMSULOSIN 0.4 MG CAP PO SCH (08:57)
[2022-09-27] MEDS: FUROSEMIDE 40 MG TAB PO SCH (08:58)
[2022-09-27] MEDS: SENNA 8.6 MG TAB (SENOKOT) PO SCH (09:00)
[2022-09-27] MEDS: DIGOXIN 0.125 MG TAB PO SCH (09:00)
[2022-09-27] MEDS: MIRALAX *UNIT DOSE* 17GM PACKET PO SCH (09:00)
[2022-09-27] MEDS: NYSTATIN 100,000 UNITS/GM TOPICAL PWD 15GM TOP SCH ×2 (09:03→20:30)
[2022-09-27] MEDS: MUPIROCIN 2% OINT 22 GM TUBE TOP SCH (09:03)
[2022-09-27] MEDS: OMEPRAZOLE 20MG CAP PO PRN (10:18)
[2022-09-27] MEDS: PERCOCET 5MG/325MG TAB PO PRN (10:19)
[2022-09-27] MEDS: SODIUM CHLORIDE 0.9% INJ 10 ML SYR IV PRN (17:05)
[2022-09-27] MEDS: LEVEMIR (INSULIN DETEMIR) 1 UNITS/0.01ML SC SCH (20:28)
[2022-09-27] MEDS: ATORVASTATIN 20 MG TAB PO SCH (20:29)
[2022-09-28] VITALS (33 sets, daily range): BP systolic 102–140; BP diastolic 51–61; O2SAT 86–97
[2022-09-28 05:26] LABS: BASO # 0.1 10^3/uL (0.0-0.2); EOS # 0.3 10^3/uL (0.0-0.5); EOS % 3.2 % (0.0-3.0); HEMATOCRIT 30.9 % (42.0-52.0); HEMOGLOBIN 9.5 g/dl (13.5-17.5); LYMPH # 1.2 10^3/uL (1.5-5.0); LYMPH % 12.4 % (24.0-44.0); MEAN CORPUSCULAR HGB CONC 30.7 g/dl (32.0-36.5); MEAN CORPUSCULAR VOLUME 97.5 fl (80.0-96.0); MONO # 0.8 10^3/uL (0.0-0.8); MONO % 8.1 % (2.0-8.0); NEUTROPHILS # 7.2 10^3/uL (1.5-8.5); NEUTROPHILS % 74.9 % (36.0-66.0); PLATELET COUNT, AUTOMATED 217 10^3/uL (150-450); RED BLOOD COUNT 3.17 10^6/uL (4.30-6.10); WHITE BLOOD COUNT 9.6 10^3/uL (4.0-10.0)
[2022-09-28] MEDS: SODIUM CHLORIDE 0.9% INJ 10 ML SYR IV SCH ×2 (05:33→17:15)
[2022-09-28 06:06] LABS: CALCIUM LEVEL 7.7 MG/DL (8.3-10.6); CREATININE FOR GFR 8.16 MG/DL (0.70-1.30); GLOMERULAR FILTRATION RATE 6.9 (>42); MAGNESIUM LEVEL 1.9 MG/DL (1.8-2.4); POTASSIUM SERUM 4.2 MMOL/L (3.5-5.1)
[2022-09-28] MEDS: SUCROFERRIC OXYHYDROXIDE 500MG CHEW TAB (VELPHORO) PO SCH ×3 (08:00→17:14)
[2022-09-28] MEDS: PIPERACILLIN/TAZOBACTAM SOD 4.5 GM in D5W MINI-BAG PLUS 50 ML IV SCH ×2 (08:49→20:31)
[2022-09-28] MEDS: INSULIN LISPRO (NovoLOG) PER UNIT SC SCH ×7 (08:50→20:31)
[2022-09-28] MEDS: ASPIRIN 81MG ENTERIC TABLET PO SCH (08:51)
[2022-09-28] MEDS: TAMSULOSIN 0.4 MG CAP PO SCH (08:51)
[2022-09-28] MEDS: APIXABAN 5 MG TAB (ELIQUIS) PO SCH ×2 (08:51→20:31)
[2022-09-28] MEDS: DIGOXIN 0.125 MG TAB PO SCH (08:52)
[2022-09-28] MEDS: FUROSEMIDE 40 MG TAB PO SCH (08:52)
[2022-09-28] MEDS: MIDODRINE 5 MG TAB PO SCH ×3 (08:53→17:17)
[2022-09-28] MEDS: MIRALAX *UNIT DOSE* 17GM PACKET PO SCH (08:53)
[2022-09-28] MEDS: LACTOBACILLUS ACIDOPHILUS CAP (BACID) PO SCH ×2 (08:53→17:14)
[2022-09-28] MEDS: POTASSIUM CHLORIDE 10MEQ SR TABLET PO SCH ×2 (08:53→20:31)
[2022-09-28] MEDS: NYSTATIN 100,000 UNITS/GM TOPICAL PWD 15GM TOP SCH ×2 (08:54→20:32)
[2022-09-28] MEDS: SENNA 8.6 MG TAB (SENOKOT) PO SCH (08:54)
[2022-09-28] MEDS: SODIUM CHLORIDE 0.9% INJ 10 ML SYR IV PRN (10:04)
[2022-09-28] MEDS: ATORVASTATIN 20 MG TAB PO SCH (20:31)
[2022-09-28] MEDS: LEVEMIR (INSULIN DETEMIR) 1 UNITS/0.01ML SC SCH (20:31)
[2022-09-29] VITALS (18 sets, daily range): BP systolic 114–148; BP diastolic 54–78; O2SAT 88–96
[2022-09-29] MEDS: SODIUM CHLORIDE 0.9% INJ 10 ML SYR IV SCH ×2 (05:22→17:25)
[2022-09-29 06:08] LABS: BASO # 0.1 10^3/uL (0.0-0.2); BASO % 1.3 % (0.0-1.0); EOS # 0.4 10^3/uL (0.0-0.5); EOS % 3.4 % (0.0-3.0); HEMATOCRIT 32.9 % (42.0-52.0); LYMPH # 1.3 10^3/uL (1.5-5.0); MEAN CORPUSCULAR HEMOGLOBIN 29.8 pg (27.0-33.0); MEAN CORPUSCULAR HGB CONC 30.4 g/dl (32.0-36.5); MEAN CORPUSCULAR VOLUME 97.9 fl (80.0-96.0); MONO # 0.8 10^3/uL (0.0-0.8); MONO % 7.7 % (2.0-8.0); NEUTROPHILS # 8.2 10^3/uL (1.5-8.5); NEUTROPHILS % 75.2 % (36.0-66.0); PLATELET COUNT, AUTOMATED 223 10^3/uL (150-450); RED BLOOD COUNT 3.36 10^6/uL (4.30-6.10); WHITE BLOOD COUNT 10.9 10^3/uL (4.0-10.0)
[2022-09-29 06:46] LABS: CALCIUM LEVEL 8.4 MG/DL (8.3-10.6); CREATININE FOR GFR 8.37 MG/DL (0.70-1.30); GLOMERULAR FILTRATION RATE 6.7 (>42); MAGNESIUM LEVEL 1.9 MG/DL (1.8-2.4); POTASSIUM SERUM 4.2 MMOL/L (3.5-5.1)
[2022-09-29] MEDS: SUCROFERRIC OXYHYDROXIDE 500MG CHEW TAB (VELPHORO) PO SCH ×3 (08:00→17:19)
[2022-09-29] MEDS: DIGOXIN 0.125 MG TAB PO SCH (08:25)
[2022-09-29] MEDS: LACTOBACILLUS ACIDOPHILUS CAP (BACID) PO SCH ×2 (08:25→17:18)
[2022-09-29] MEDS: PIPERACILLIN/TAZOBACTAM SOD 4.5 GM in D5W MINI-BAG PLUS 50 ML IV SCH ×2 (08:25→22:35)
[2022-09-29] MEDS: APIXABAN 5 MG TAB (ELIQUIS) PO SCH ×2 (08:25→22:35)
[2022-09-29] MEDS: MIDODRINE 5 MG TAB PO SCH ×3 (08:25→16:00)
[2022-09-29] MEDS: ASPIRIN 81MG ENTERIC TABLET PO SCH (08:25)
[2022-09-29] MEDS: POTASSIUM CHLORIDE 10MEQ SR TABLET PO SCH ×2 (08:26→22:35)
[2022-09-29] MEDS: FUROSEMIDE 40 MG TAB PO SCH (08:26)
[2022-09-29] MEDS: MIRALAX *UNIT DOSE* 17GM PACKET PO SCH (08:26)
[2022-09-29] MEDS: SENNA 8.6 MG TAB (SENOKOT) PO SCH (08:26)
[2022-09-29] MEDS: TAMSULOSIN 0.4 MG CAP PO SCH (08:26)
[2022-09-29] MEDS: INSULIN LISPRO (NovoLOG) PER UNIT SC SCH ×7 (08:27→22:08)
[2022-09-29] MEDS: NYSTATIN 100,000 UNITS/GM TOPICAL PWD 15GM TOP SCH ×2 (09:46→22:36)
[2022-09-29] MEDS: SODIUM CHLORIDE 0.9% INJ 10 ML SYR IV PRN ×2 (09:47→22:37)
[2022-09-29] MEDS ORDERED: HEPARIN SOD (PORCINE) 5000UNITS/ML 1ML VIAL/SYRINGE PD ONE (10:10)
[2022-09-29] MEDS: DARBEPOETIN 200MCG/0.4ML *NON-DIALYSIS* SYRINGE SC SCH (14:46)
[2022-09-29] MEDS: MUPIROCIN 2% OINT 22 GM TUBE TOP SCH (17:20)
[2022-09-29] MEDS: ATORVASTATIN 20 MG TAB PO SCH (22:35)
[2022-09-29] MEDS: LEVEMIR (INSULIN DETEMIR) 1 UNITS/0.01ML SC SCH (22:36)
[2022-09-29] MEDS: OMEPRAZOLE 20MG CAP PO PRN (22:36)
[2022-09-29] MEDS: PERCOCET 5MG/325MG TAB PO PRN (22:37)
[2022-09-29 23:43] LABS: CK-MB VALUE MASS 3.8 NG/ML (<3.6)
[2022-09-29 23:44] LABS: MB/CK RELATIVE INDEX 6.55 (< OR =4)
[2022-09-30] MEDS: SODIUM CHLORIDE 0.9% INJ 10 ML SYR IV PRN ×3 (00:32→22:13)
[2022-09-30] MEDS ORDERED: NS 1,000 ML IV ONE (00:40)
[2022-09-30 03:07] LABS: CK-MB VALUE MASS 3.1 NG/ML (<3.6)
[2022-09-30 03:08] LABS: MB/CK RELATIVE INDEX 5.25 (< OR =4)
[2022-09-30 06:00] VITALS: BP 147/56
[2022-09-30 06:00] LABS: BASO # 0.1 10^3/uL (0.0-0.2); BASO % 1.4 % (0.0-1.0); EOS # 0.3 10^3/uL (0.0-0.5); EOS % 3.7 % (0.0-3.0); HEMATOCRIT 31.7 % (42.0-52.0); HEMOGLOBIN 9.7 g/dl (13.5-17.5); LYMPH # 1.4 10^3/uL (1.5-5.0); LYMPH % 15.5 % (24.0-44.0); MEAN CORPUSCULAR HEMOGLOBIN 29.9 pg (27.0-33.0); MEAN CORPUSCULAR HGB CONC 30.6 g/dl (32.0-36.5); MEAN CORPUSCULAR VOLUME 97.8 fl (80.0-96.0); MONO # 0.9 10^3/uL (0.0-0.8); MONO % 9.7 % (2.0-8.0); NEUTROPHILS # 6.1 10^3/uL (1.5-8.5); NEUTROPHILS % 69.4 % (36.0-66.0); PLATELET COUNT, AUTOMATED 234 10^3/uL (150-450); RED BLOOD COUNT 3.24 10^6/uL (4.30-6.10); WHITE BLOOD COUNT 8.9 10^3/uL (4.0-10.0)
[2022-09-30 06:20] LABS: CK-MB VALUE MASS 2.5 NG/ML (<3.6)
[2022-09-30 06:21] LABS: MB/CK RELATIVE INDEX 5.1 (< OR =4)
[2022-09-30] MEDS: SODIUM CHLORIDE 0.9% INJ 10 ML SYR IV SCH ×2 (06:25→17:31)
[2022-09-30 06:36] LABS: CALCIUM LEVEL 7.7 MG/DL (8.3-10.6); CREATININE FOR GFR 8.11 MG/DL (0.70-1.30); MAGNESIUM LEVEL 1.8 MG/DL (1.8-2.4); POTASSIUM SERUM 4.2 MMOL/L (3.5-5.1)
[2022-09-30] MEDS: SUCROFERRIC OXYHYDROXIDE 500MG CHEW TAB (VELPHORO) PO SCH ×3 (08:00→17:28)
[2022-09-30] MEDS: MIDODRINE 5 MG TAB PO SCH ×3 (08:00→16:00)
[2022-09-30] MEDS: INSULIN LISPRO (NovoLOG) PER UNIT SC SCH ×7 (08:57→21:00)
[2022-09-30] MEDS: ASPIRIN 81MG ENTERIC TABLET PO SCH (08:58)
[2022-09-30] MEDS: LACTOBACILLUS ACIDOPHILUS CAP (BACID) PO SCH ×2 (08:58→17:29)
[2022-09-30] MEDS: APIXABAN 5 MG TAB (ELIQUIS) PO SCH ×2 (09:00→22:11)
[2022-09-30] MEDS: TAMSULOSIN 0.4 MG CAP PO SCH (09:00)
[2022-09-30] MEDS: SENNA 8.6 MG TAB (SENOKOT) PO SCH (09:00)
[2022-09-30] MEDS: MIRALAX *UNIT DOSE* 17GM PACKET PO SCH (09:00)
[2022-09-30] MEDS: METOPROLOL TART 12.5 MG PER 1/2 TAB PO SCH ×2 (09:01→22:16)
[2022-09-30] MEDS: DIGOXIN 0.125 MG TAB PO SCH (09:01)
[2022-09-30] MEDS: PIPERACILLIN/TAZOBACTAM SOD 4.5 GM in D5W MINI-BAG PLUS 50 ML IV SCH ×2 (09:02→21:01)
[2022-09-30] MEDS: FUROSEMIDE 40 MG TAB PO SCH (09:02)
[2022-09-30] MEDS: POTASSIUM CHLORIDE 10MEQ SR TABLET PO SCH ×2 (09:02→22:11)
[2022-09-30] MEDS: NYSTATIN 100,000 UNITS/GM TOPICAL PWD 15GM TOP SCH ×2 (09:04→22:15)
[2022-09-30 11:01] LABS: CK-MB VALUE MASS 2.7 NG/ML (<3.6)
[2022-09-30 14:00] VITALS: BP 130/70
[2022-09-30 21:05] VITALS: BP 128/71
[2022-09-30] MEDS: ATORVASTATIN 20 MG TAB PO SCH (22:14)
[2022-09-30] MEDS: LEVEMIR (INSULIN DETEMIR) 1 UNITS/0.01ML SC SCH (22:14)
[2022-10-01 06:00] VITALS: BP 135/65
[2022-10-01] MEDS: SODIUM CHLORIDE 0.9% INJ 10 ML SYR IV SCH ×2 (06:00→15:57)
[2022-10-01 06:31] LABS: BASO # 0.1 10^3/uL (0.0-0.2); BASO % 1.3 % (0.0-1.0); EOS # 0.3 10^3/uL (0.0-0.5); EOS % 2.8 % (0.0-3.0); HEMATOCRIT 31.2 % (42.0-52.0); HEMOGLOBIN 9.6 g/dl (13.5-17.5); LYMPH # 1.5 10^3/uL (1.5-5.0); LYMPH % 15.1 % (24.0-44.0); MEAN CORPUSCULAR HEMOGLOBIN 30.1 pg (27.0-33.0); MEAN CORPUSCULAR HGB CONC 30.8 g/dl (32.0-36.5); MEAN CORPUSCULAR VOLUME 97.8 fl (80.0-96.0); MONO # 0.9 10^3/uL (0.0-0.8); MONO % 9.3 % (2.0-8.0); NEUTROPHILS # 6.9 10^3/uL (1.5-8.5); PLATELET COUNT, AUTOMATED 220 10^3/uL (150-450); RED BLOOD COUNT 3.19 10^6/uL (4.30-6.10); WHITE BLOOD COUNT 9.8 10^3/uL (4.0-10.0)
[2022-10-01 07:03] LABS: CALCIUM LEVEL 7.9 MG/DL (8.3-10.6); CREATININE FOR GFR 8.15 MG/DL (0.70-1.30); GLOMERULAR FILTRATION RATE 6.9 (>42); MAGNESIUM LEVEL 1.7 MG/DL (1.8-2.4)
[2022-10-01] MEDS: INSULIN LISPRO (NovoLOG) PER UNIT SC SCH ×7 (07:30→20:34)
[2022-10-01] MEDS: LACTOBACILLUS ACIDOPHILUS CAP (BACID) PO SCH ×2 (07:57→17:14)
[2022-10-01] MEDS: SUCROFERRIC OXYHYDROXIDE 500MG CHEW TAB (VELPHORO) PO SCH ×3 (07:57→17:14)
[2022-10-01] MEDS: MIDODRINE 5 MG TAB PO SCH ×3 (08:00→15:21)
[2022-10-01] MEDS ORDERED: MAG SULF 1GM/100ML (MAG RUN) 1 GM in IV 1 EA IV ONE (08:00)
[2022-10-01] MEDS: TAMSULOSIN 0.4 MG CAP PO SCH (08:15)
[2022-10-01] MEDS: ASPIRIN 81MG ENTERIC TABLET PO SCH (08:15)
[2022-10-01] MEDS: NYSTATIN 100,000 UNITS/GM TOPICAL PWD 15GM TOP SCH ×2 (08:16→20:49)
[2022-10-01] MEDS: SENNA 8.6 MG TAB (SENOKOT) PO SCH (08:16)
[2022-10-01] MEDS: MUPIROCIN 2% OINT 22 GM TUBE TOP SCH (08:16)
[2022-10-01] MEDS: MIRALAX *UNIT DOSE* 17GM PACKET PO SCH (08:16)
[2022-10-01] MEDS: DIGOXIN 0.125 MG TAB PO SCH (08:19)
[2022-10-01] MEDS: FUROSEMIDE 40 MG TAB PO SCH (08:19)
[2022-10-01] MEDS: METOPROLOL TART 12.5 MG PER 1/2 TAB PO SCH ×2 (08:19→20:49)
[2022-10-01] MEDS: POTASSIUM CHLORIDE 10MEQ SR TABLET PO SCH ×2 (08:20→20:48)
[2022-10-01] MEDS: APIXABAN 5 MG TAB (ELIQUIS) PO SCH ×2 (08:47→20:49)
[2022-10-01] MEDS: PIPERACILLIN/TAZOBACTAM SOD 4.5 GM in D5W MINI-BAG PLUS 50 ML IV SCH ×2 (09:28→20:51)
[2022-10-01] MEDS ORDERED: fentaNYL 100 MCG/2 ML INJECTION As Ordered ONE ×2 (10:05→11:45)
[2022-10-01] MEDS ORDERED: MIDAZOLAM INJ 2MG/2ML VIAL As Ordered ONE (10:06)
[2022-10-01] MEDS ORDERED: HEPARIN 1,000UNITS/ML 10ML VIAL (FOR RADIOLOGY & DIALYSIS ONLY) As Ordered ONE (10:06)
[2022-10-01 12:44] VITALS: BP 182/74
[2022-10-01 13:03] VITALS: BP 137/63
[2022-10-01 14:15] VITALS: BP 165/63
[2022-10-01 20:35] VITALS: BP_SYST 133; BP_SYST 142; BP_DIAS 56; BP_DIAS 86
[2022-10-01] MEDS: ATORVASTATIN 20 MG TAB PO SCH (20:48)
[2022-10-01] MEDS: LEVEMIR (INSULIN DETEMIR) 1 UNITS/0.01ML SC SCH (20:49)
[2022-10-02] MEDS: PERCOCET 5MG/325MG TAB PO PRN ×2 (03:44→20:10)
[2022-10-02 06:00] LABS: BASO # 0.1 10^3/uL (0.0-0.2); BASO % 1.4 % (0.0-1.0); EOS # 0.3 10^3/uL (0.0-0.5); HEMATOCRIT 31.7 % (42.0-52.0); HEMOGLOBIN 9.6 g/dl (13.5-17.5); LYMPH # 1.1 10^3/uL (1.5-5.0); LYMPH % 11.5 % (24.0-44.0); MEAN CORPUSCULAR HEMOGLOBIN 29.8 pg (27.0-33.0); MEAN CORPUSCULAR HGB CONC 30.3 g/dl (32.0-36.5); MEAN CORPUSCULAR VOLUME 98.4 fl (80.0-96.0); MONO % 9.6 % (2.0-8.0); NEUTROPHILS # 7.3 10^3/uL (1.5-8.5); PLATELET COUNT, AUTOMATED 229 10^3/uL (150-450); RED BLOOD COUNT 3.22 10^6/uL (4.30-6.10); WHITE BLOOD COUNT 9.9 10^3/uL (4.0-10.0)
[2022-10-02] MEDS: SODIUM CHLORIDE 0.9% INJ 10 ML SYR IV SCH ×2 (06:06→17:19)
[2022-10-02 06:09] VITALS: BP 152/78
[2022-10-02 06:23] LABS: C REACTIVE PROTEIN QUANTITATIV 3.1 MG/DL (<1.0)
[2022-10-02 06:26] LABS: CALCIUM LEVEL 7.9 MG/DL (8.3-10.6); CREATININE FOR GFR 8.29 MG/DL (0.70-1.30); GLOMERULAR FILTRATION RATE 6.8 (>42); MAGNESIUM LEVEL 1.8 MG/DL (1.8-2.4); POTASSIUM SERUM 4.2 MMOL/L (3.5-5.1)
[2022-10-02 08:00] VITALS: BP 162/74
[2022-10-02] MEDS: INSULIN LISPRO (NovoLOG) PER UNIT SC SCH ×7 (08:00→20:08)
[2022-10-02] MEDS: SUCROFERRIC OXYHYDROXIDE 500MG CHEW TAB (VELPHORO) PO SCH ×3 (08:00→17:18)
[2022-10-02] MEDS: SENNA 8.6 MG TAB (SENOKOT) PO SCH (09:00)
[2022-10-02] MEDS: MIRALAX *UNIT DOSE* 17GM PACKET PO SCH (09:00)
[2022-10-02] MEDS: METOPROLOL TART 12.5 MG PER 1/2 TAB PO SCH ×2 (09:21→20:11)
[2022-10-02] MEDS: ASPIRIN 81MG ENTERIC TABLET PO SCH (09:21)
[2022-10-02] MEDS: LACTOBACILLUS ACIDOPHILUS CAP (BACID) PO SCH ×2 (09:22→17:18)
[2022-10-02] MEDS: FUROSEMIDE 40 MG TAB PO SCH (09:23)
[2022-10-02] MEDS: TAMSULOSIN 0.4 MG CAP PO SCH (09:23)
[2022-10-02] MEDS: MIDODRINE 5 MG TAB PO SCH ×3 (09:24→16:00)
[2022-10-02] MEDS: DIGOXIN 0.125 MG TAB PO SCH (09:25)
[2022-10-02] MEDS: POTASSIUM CHLORIDE 10MEQ SR TABLET PO SCH ×2 (09:26→20:07)
[2022-10-02] MEDS: PIPERACILLIN/TAZOBACTAM SOD 4.5 GM in D5W MINI-BAG PLUS 50 ML IV SCH ×2 (09:27→20:08)
[2022-10-02] MEDS: APIXABAN 5 MG TAB (ELIQUIS) PO SCH ×2 (09:28→20:07)
[2022-10-02] MEDS: NYSTATIN 100,000 UNITS/GM TOPICAL PWD 15GM TOP SCH ×2 (09:30→20:08)
[2022-10-02] MEDS ORDERED: HEPARIN 1,000UNITS/ML 10ML VIAL (FOR RADIOLOGY & DIALYSIS ONLY) XX SCH (10:10)
[2022-10-02] MEDS ORDERED: SODIUM CHLORIDE 0.9% 1000ML IV PRN (10:10)
[2022-10-02] MEDS ORDERED: LIDOCAINE 1% SDV 5ML VIAL SC PRN (10:10)
[2022-10-02] MEDS ORDERED: HEPARIN 1,000UNITS/ML 10ML VIAL (FOR RADIOLOGY & DIALYSIS ONLY) IV PRN (10:10)
[2022-10-02 16:15] VITALS: BP 129/60
[2022-10-02] MEDS: ATORVASTATIN 20 MG TAB PO SCH (20:07)
[2022-10-02] MEDS: LEVEMIR (INSULIN DETEMIR) 1 UNITS/0.01ML SC SCH (20:08)
[2022-10-03 06:03] LABS: BASO # 0.1 10^3/uL (0.0-0.2); BASO % 1.9 % (0.0-1.0); EOS # 0.2 10^3/uL (0.0-0.5); EOS % 3.2 % (0.0-3.0); HEMATOCRIT 32.1 % (42.0-52.0); HEMOGLOBIN 9.7 g/dl (13.5-17.5); LYMPH # 1.4 10^3/uL (1.5-5.0); LYMPH % 19.4 % (24.0-44.0); MEAN CORPUSCULAR HEMOGLOBIN 29.8 pg (27.0-33.0); MEAN CORPUSCULAR HGB CONC 30.2 g/dl (32.0-36.5); MEAN CORPUSCULAR VOLUME 98.5 fl (80.0-96.0); MONO # 0.9 10^3/uL (0.0-0.8); MONO % 11.5 % (2.0-8.0); NEUTROPHILS # 4.7 10^3/uL (1.5-8.5); NEUTROPHILS % 63.3 % (36.0-66.0); PLATELET COUNT, AUTOMATED 219 10^3/uL (150-450); RED BLOOD COUNT 3.26 10^6/uL (4.30-6.10); WHITE BLOOD COUNT 7.4 10^3/uL (4.0-10.0)
[2022-10-03] MEDS: SODIUM CHLORIDE 0.9% INJ 10 ML SYR IV SCH ×2 (06:12→17:10)
[2022-10-03 06:31] LABS: CREATININE FOR GFR 5.81 MG/DL (0.70-1.30); GLOMERULAR FILTRATION RATE 10.2 (>42); MAGNESIUM LEVEL 1.8 MG/DL (1.8-2.4); POTASSIUM SERUM 4.2 MMOL/L (3.5-5.1)
[2022-10-03] MEDS: MIDODRINE 5 MG TAB PO SCH ×3 (08:00→15:37)
[2022-10-03] MEDS: MIRALAX *UNIT DOSE* 17GM PACKET PO SCH (09:00)
[2022-10-03] MEDS: NYSTATIN 100,000 UNITS/GM TOPICAL PWD 15GM TOP SCH ×2 (09:00→21:35)
[2022-10-03] MEDS: SENNA 8.6 MG TAB (SENOKOT) PO SCH (09:00)
[2022-10-03] MEDS: INSULIN LISPRO (NovoLOG) PER UNIT SC SCH ×7 (09:08→21:00)
[2022-10-03] MEDS: SUCROFERRIC OXYHYDROXIDE 500MG CHEW TAB (VELPHORO) PO SCH ×3 (09:08→17:09)
[2022-10-03] MEDS: APIXABAN 5 MG TAB (ELIQUIS) PO SCH ×2 (09:09→21:33)
[2022-10-03] MEDS: ASPIRIN 81MG ENTERIC TABLET PO SCH (09:09)
[2022-10-03] MEDS: DIGOXIN 0.125 MG TAB PO SCH (09:09)
[2022-10-03] MEDS: POTASSIUM CHLORIDE 10MEQ SR TABLET PO SCH ×2 (09:09→21:33)
[2022-10-03] MEDS: TAMSULOSIN 0.4 MG CAP PO SCH (09:09)
[2022-10-03] MEDS: PERCOCET 5MG/325MG TAB PO PRN ×2 (09:10→21:34)
[2022-10-03] MEDS: LACTOBACILLUS ACIDOPHILUS CAP (BACID) PO SCH ×2 (09:10→17:09)
[2022-10-03] MEDS: PIPERACILLIN/TAZOBACTAM SOD 4.5 GM in D5W MINI-BAG PLUS 50 ML IV SCH ×2 (09:10→21:35)
[2022-10-03] MEDS: MUPIROCIN 2% OINT 22 GM TUBE TOP SCH (09:11)
[2022-10-03] MEDS: METOPROLOL TART 12.5 MG PER 1/2 TAB PO SCH (09:11)
[2022-10-03] MEDS: FUROSEMIDE 40 MG TAB PO SCH (09:12)
[2022-10-03 09:59] VITALS: BP 176/96
[2022-10-03 10:00] VITALS: BP 176/96
[2022-10-03] MEDS: OMEPRAZOLE 20MG CAP PO PRN (10:04)
[2022-10-03 10:46] VITALS: BP 149/65
[2022-10-03 10:48] VITALS: BP 176/96
[2022-10-03] MEDS ORDERED: GI COCKTAIL 50ML BTL(HYOSCYAMINE/MAALOX/LIDOCAINE VISCOUS)(1:3:1) PO ONE (11:00)
[2022-10-03 11:06] LABS: CK-MB VALUE MASS 2.8 NG/ML (<3.6)
[2022-10-03 11:07] LABS: MB/CK RELATIVE INDEX 3.83 (< OR =4)
[2022-10-03 12:54] LABS: CK-MB VALUE MASS 2.6 NG/ML (<3.6)
[2022-10-03 12:56] LABS: MB/CK RELATIVE INDEX 3.61 (< OR =4)
[2022-10-03] MEDS ORDERED: CARVedilol 6.25 MG TAB PO ONE (14:50)
[2022-10-03 15:18] VITALS: BP 136/54
[2022-10-03] MEDS: ATORVASTATIN 20 MG TAB PO SCH (21:33)
[2022-10-03] MEDS: LEVEMIR (INSULIN DETEMIR) 1 UNITS/0.01ML SC SCH (21:35)
[2022-10-03] MEDS: CARVedilol 6.25 MG TAB PO SCH (21:38)
[2022-10-04 06:00] VITALS: BP 144/67
[2022-10-04] MEDS: POTASSIUM CHLORIDE 10MEQ SR TABLET PO SCH (06:06)
[2022-10-04] MEDS: LACTOBACILLUS ACIDOPHILUS CAP (BACID) PO SCH ×2 (06:06→17:16)
[2022-10-04] MEDS: CARVedilol 6.25 MG TAB PO SCH ×2 (06:07→21:41)
[2022-10-04] MEDS: DIGOXIN 0.125 MG TAB PO SCH (06:07)
[2022-10-04] MEDS: ASPIRIN 81MG ENTERIC TABLET PO SCH (06:07)
[2022-10-04] MEDS: FUROSEMIDE 40 MG TAB PO SCH (06:08)
[2022-10-04] MEDS: TAMSULOSIN 0.4 MG CAP PO SCH (06:08)
[2022-10-04] MEDS: PIPERACILLIN/TAZOBACTAM SOD 4.5 GM in D5W MINI-BAG PLUS 50 ML IV SCH ×2 (06:08→21:50)
[2022-10-04] MEDS: MIRALAX *UNIT DOSE* 17GM PACKET PO SCH (06:09)
[2022-10-04] MEDS: SENNA 8.6 MG TAB (SENOKOT) PO SCH (06:09)
[2022-10-04] MEDS: NYSTATIN 100,000 UNITS/GM TOPICAL PWD 15GM TOP SCH ×2 (06:09→21:41)
[2022-10-04] MEDS: APIXABAN 5 MG TAB (ELIQUIS) PO SCH ×2 (06:11→21:39)
[2022-10-04] MEDS: SODIUM CHLORIDE 0.9% INJ 10 ML SYR IV SCH ×2 (06:16→17:16)
[2022-10-04] MEDS: INSULIN LISPRO (NovoLOG) PER UNIT SC SCH ×7 (06:46→21:00)
[2022-10-04] MEDS ORDERED: SODIUM CHLORIDE 0.9% 1000ML IV PRN (06:50)
[2022-10-04] MEDS ORDERED: LIDOCAINE 1% SDV 5ML VIAL SC PRN (06:50)
[2022-10-04] MEDS ORDERED: HEPARIN 1,000UNITS/ML 10ML VIAL (FOR RADIOLOGY & DIALYSIS ONLY) XX SCH (06:50)
[2022-10-04] MEDS ORDERED: HEPARIN 1,000UNITS/ML 10ML VIAL (FOR RADIOLOGY & DIALYSIS ONLY) IV PRN (06:50)
[2022-10-04] MEDS: SUCROFERRIC OXYHYDROXIDE 500MG CHEW TAB (VELPHORO) PO SCH ×3 (07:04→17:15)
[2022-10-04 07:30] VITALS: BP 160/80
[2022-10-04] MEDS: MIDODRINE 5 MG TAB PO SCH ×4 (08:00→16:00)
[2022-10-04 12:54] VITALS: BP 121/59
[2022-10-04 16:48] VITALS: BP 119/54
[2022-10-04] MEDS: LEVEMIR (INSULIN DETEMIR) 1 UNITS/0.01ML SC SCH (21:40)
[2022-10-04] MEDS: ATORVASTATIN 20 MG TAB PO SCH (21:40)
[2022-10-04] MEDS: PERCOCET 5MG/325MG TAB PO PRN (21:40)
[2022-10-05 06:26] VITALS: BP 169/63
[2022-10-05] MEDS: SODIUM CHLORIDE 0.9% INJ 10 ML SYR IV SCH ×2 (06:34→17:22)
[2022-10-05] MEDS: SUCROFERRIC OXYHYDROXIDE 500MG CHEW TAB (VELPHORO) PO SCH ×3 (08:00→17:25)
[2022-10-05] MEDS: INSULIN LISPRO (NovoLOG) PER UNIT SC SCH ×7 (08:00→20:51)
[2022-10-05] MEDS: MIDODRINE 5 MG TAB PO SCH ×3 (08:00→16:00)
[2022-10-05] MEDS: MIRALAX *UNIT DOSE* 17GM PACKET PO SCH (09:00)
[2022-10-05] MEDS: SENNA 8.6 MG TAB (SENOKOT) PO SCH (09:00)
[2022-10-05] MEDS: CARVedilol 6.25 MG TAB PO SCH ×2 (10:07→20:48)
[2022-10-05] MEDS: APIXABAN 5 MG TAB (ELIQUIS) PO SCH ×2 (10:08→20:46)
[2022-10-05] MEDS: TAMSULOSIN 0.4 MG CAP PO SCH (10:08)
[2022-10-05] MEDS: DIGOXIN 0.125 MG TAB PO SCH (10:08)
[2022-10-05] MEDS: ASPIRIN 81MG ENTERIC TABLET PO SCH (10:10)
[2022-10-05] MEDS: MUPIROCIN 2% OINT 22 GM TUBE TOP SCH (10:12)
[2022-10-05] MEDS: NYSTATIN 100,000 UNITS/GM TOPICAL PWD 15GM TOP SCH ×2 (10:12→20:57)
[2022-10-05] MEDS: PIPERACILLIN/TAZOBACTAM SOD 4.5 GM in D5W MINI-BAG PLUS 50 ML IV SCH ×2 (10:20→20:47)
[2022-10-05] MEDS: LACTOBACILLUS ACIDOPHILUS CAP (BACID) PO SCH ×2 (10:23→17:23)
[2022-10-05 17:15] VITALS: BP 170/80
[2022-10-05] MEDS: ATORVASTATIN 20 MG TAB PO SCH (20:46)
[2022-10-05] MEDS: LEVEMIR (INSULIN DETEMIR) 1 UNITS/0.01ML SC SCH (20:56)
[2022-10-05] MEDS: SODIUM CHLORIDE 0.9% INJ 10 ML SYR IV PRN (22:11)
[2022-10-06] MEDS: SODIUM CHLORIDE 0.9% INJ 10 ML SYR IV SCH ×2 (05:24→17:39)
[2022-10-06 06:00] VITALS: BP 118/76
[2022-10-06] MEDS: INSULIN LISPRO (NovoLOG) PER UNIT SC SCH ×7 (07:22→21:00)
[2022-10-06] MEDS: MIDODRINE 5 MG TAB PO SCH ×3 (07:37→16:00)
[2022-10-06] MEDS: SUCROFERRIC OXYHYDROXIDE 500MG CHEW TAB (VELPHORO) PO SCH ×3 (07:48→17:37)
[2022-10-06] MEDS: PIPERACILLIN/TAZOBACTAM SOD 4.5 GM in D5W MINI-BAG PLUS 50 ML IV SCH ×2 (07:48→19:59)
[2022-10-06] MEDS: LACTOBACILLUS ACIDOPHILUS CAP (BACID) PO SCH ×2 (07:48→17:37)
[2022-10-06] MEDS: SENNA 8.6 MG TAB (SENOKOT) PO SCH (07:52)
[2022-10-06] MEDS: DIGOXIN 0.125 MG TAB PO SCH (07:53)
[2022-10-06] MEDS: APIXABAN 5 MG TAB (ELIQUIS) PO SCH ×2 (07:53→20:00)
[2022-10-06] MEDS: ASPIRIN 81MG ENTERIC TABLET PO SCH (07:53)
[2022-10-06] MEDS: TAMSULOSIN 0.4 MG CAP PO SCH (07:53)
[2022-10-06] MEDS: CARVedilol 6.25 MG TAB PO SCH ×2 (07:54→20:00)
[2022-10-06] MEDS: NYSTATIN 100,000 UNITS/GM TOPICAL PWD 15GM TOP SCH ×2 (07:55→20:01)
[2022-10-06] MEDS: MIRALAX *UNIT DOSE* 17GM PACKET PO SCH (07:55)
[2022-10-06] MEDS: DARBEPOETIN 200MCG/0.4ML *NON-DIALYSIS* SYRINGE SC SCH (10:44)
[2022-10-06 19:44] VITALS: BP 156/67
[2022-10-06] MEDS: ATORVASTATIN 20 MG TAB PO SCH (20:00)
[2022-10-06] MEDS: LEVEMIR (INSULIN DETEMIR) 1 UNITS/0.01ML SC SCH (22:29)
[2022-10-07] MEDS: LACTOBACILLUS ACIDOPHILUS CAP (BACID) PO SCH ×2 (05:47→17:26)
[2022-10-07] MEDS: SODIUM CHLORIDE 0.9% INJ 10 ML SYR IV SCH ×2 (05:48→17:16)
[2022-10-07] MEDS: OMEPRAZOLE 20MG CAP PO PRN (05:49)
[2022-10-07] MEDS: APIXABAN 5 MG TAB (ELIQUIS) PO SCH ×2 (05:49→21:30)
[2022-10-07] MEDS: TAMSULOSIN 0.4 MG CAP PO SCH (05:49)
[2022-10-07] MEDS: CARVedilol 6.25 MG TAB PO SCH ×2 (05:50→21:32)
[2022-10-07] MEDS: ASPIRIN 81MG ENTERIC TABLET PO SCH (05:50)
[2022-10-07] MEDS: DIGOXIN 0.125 MG TAB PO SCH (05:51)
[2022-10-07] MEDS: INSULIN LISPRO (NovoLOG) PER UNIT SC SCH ×7 (06:06→21:00)
[2022-10-07] MEDS: MIRALAX *UNIT DOSE* 17GM PACKET PO SCH (06:07)
[2022-10-07] MEDS: SENNA 8.6 MG TAB (SENOKOT) PO SCH (06:07)
[2022-10-07] MEDS: NYSTATIN 100,000 UNITS/GM TOPICAL PWD 15GM TOP SCH ×2 (06:07→21:31)
[2022-10-07] MEDS ORDERED: HEPARIN 1,000UNITS/ML 10ML VIAL (FOR RADIOLOGY & DIALYSIS ONLY) XX SCH (06:50)
[2022-10-07] MEDS ORDERED: SODIUM CHLORIDE 0.9% 1000ML IV PRN (06:50)
[2022-10-07] MEDS ORDERED: HEPARIN 1,000UNITS/ML 10ML VIAL (FOR RADIOLOGY & DIALYSIS ONLY) IV PRN (06:50)
[2022-10-07] MEDS ORDERED: LIDOCAINE 1% SDV 5ML VIAL SC PRN (06:50)
[2022-10-07] MEDS: MIDODRINE 5 MG TAB PO SCH ×3 (07:25→17:12)
[2022-10-07 07:36] LABS: HEMATOCRIT 33.1 % (42.0-52.0); HEMOGLOBIN 10.1 g/dl (13.5-17.5); MEAN CORPUSCULAR HGB CONC 30.5 g/dl (32.0-36.5); MEAN CORPUSCULAR VOLUME 98.2 fl (80.0-96.0); PLATELET COUNT, AUTOMATED 250 10^3/uL (150-450); RED BLOOD COUNT 3.37 10^6/uL (4.30-6.10); WHITE BLOOD COUNT 10.4 10^3/uL (4.0-10.0)
[2022-10-07] MEDS: SUCROFERRIC OXYHYDROXIDE 500MG CHEW TAB (VELPHORO) PO SCH ×3 (08:00→17:26)
[2022-10-07 08:08] LABS: CALCIUM LEVEL 7.6 MG/DL (8.3-10.6); CREATININE FOR GFR 7.57 MG/DL (0.70-1.30); GLOMERULAR FILTRATION RATE 7.5 (>42); POTASSIUM SERUM 4.5 MMOL/L (3.5-5.1)
[2022-10-07] MEDS: MUPIROCIN 2% OINT 22 GM TUBE TOP SCH (08:11)
[2022-10-07 15:57] LABS: C REACTIVE PROTEIN QUANTITATIV 2.9 MG/DL (<1.0)
[2022-10-07] MEDS: ATORVASTATIN 20 MG TAB PO SCH (21:30)
[2022-10-07] MEDS: LEVEMIR (INSULIN DETEMIR) 1 UNITS/0.01ML SC SCH (21:31)
[2022-10-07] MEDS: VANICREAM MOISTURIZING SKIN CREAM 113GM TUBE TOP SCH (21:32)
[2022-10-08 05:50] VITALS: BP 127/66
[2022-10-08] MEDS: SODIUM CHLORIDE 0.9% INJ 10 ML SYR IV SCH (06:00)
[2022-10-08 06:12] LABS: BASO # 0.1 10^3/uL (0.0-0.2); BASO % 1.4 % (0.0-1.0); EOS # 0.2 10^3/uL (0.0-0.5); EOS % 2.9 % (0.0-3.0); HEMATOCRIT 31.5 % (42.0-52.0); LYMPH # 1.7 10^3/uL (1.5-5.0); MEAN CORPUSCULAR HEMOGLOBIN 30.5 pg (27.0-33.0); MEAN CORPUSCULAR HGB CONC 31.7 g/dl (32.0-36.5); MONO # 0.9 10^3/uL (0.0-0.8); MONO % 11.9 % (2.0-8.0); NEUTROPHILS # 4.8 10^3/uL (1.5-8.5); PLATELET COUNT, AUTOMATED 250 10^3/uL (150-450); RED BLOOD COUNT 3.28 10^6/uL (4.30-6.10); WHITE BLOOD COUNT 7.9 10^3/uL (4.0-10.0)
[2022-10-08] MEDS: INSULIN LISPRO (NovoLOG) PER UNIT SC SCH ×7 (07:30→21:00)
[2022-10-08] MEDS: MIDODRINE 5 MG TAB PO SCH ×3 (08:00→16:00)
[2022-10-08] MEDS: SUCROFERRIC OXYHYDROXIDE 500MG CHEW TAB (VELPHORO) PO SCH ×3 (08:00→17:31)
[2022-10-08] MEDS: LACTOBACILLUS ACIDOPHILUS CAP (BACID) PO SCH ×2 (08:22→17:31)
[2022-10-08] MEDS: ASPIRIN 81MG ENTERIC TABLET PO SCH (08:22)
[2022-10-08] MEDS: SENNA 8.6 MG TAB (SENOKOT) PO SCH (08:23)
[2022-10-08] MEDS: MIRALAX *UNIT DOSE* 17GM PACKET PO SCH (08:23)
[2022-10-08] MEDS: CARVedilol 6.25 MG TAB PO SCH ×2 (08:24→22:05)
[2022-10-08] MEDS: DIGOXIN 0.125 MG TAB PO SCH (08:24)
[2022-10-08] MEDS: TAMSULOSIN 0.4 MG CAP PO SCH (08:24)
[2022-10-08] MEDS: NYSTATIN 100,000 UNITS/GM TOPICAL PWD 15GM TOP SCH ×2 (08:25→22:08)
[2022-10-08] MEDS: VANICREAM MOISTURIZING SKIN CREAM 113GM TUBE TOP SCH ×2 (08:25→22:08)
[2022-10-08] MEDS: APIXABAN 5 MG TAB (ELIQUIS) PO SCH ×2 (08:25→22:05)
[2022-10-08 21:30] VITALS: BP 145/71
[2022-10-08] MEDS: ATORVASTATIN 20 MG TAB PO SCH (22:04)
[2022-10-08] MEDS: LEVEMIR (INSULIN DETEMIR) 1 UNITS/0.01ML SC SCH (22:06)
[2022-10-09 05:40] VITALS: BP 148/75
[2022-10-09] MEDS: MIRALAX *UNIT DOSE* 17GM PACKET PO SCH (05:56)
[2022-10-09] MEDS: MIDODRINE 5 MG TAB PO SCH ×3 (05:57→16:00)
[2022-10-09] MEDS: SENNA 8.6 MG TAB (SENOKOT) PO SCH (05:57)
[2022-10-09] MEDS: OMEPRAZOLE 20MG CAP PO PRN (05:57)
[2022-10-09] MEDS: DIGOXIN 0.125 MG TAB PO SCH (05:58)
[2022-10-09] MEDS: APIXABAN 5 MG TAB (ELIQUIS) PO SCH ×2 (05:58→21:27)
[2022-10-09] MEDS: ASPIRIN 81MG ENTERIC TABLET PO SCH (05:58)
[2022-10-09] MEDS: CARVedilol 6.25 MG TAB PO SCH ×2 (05:58→21:29)
[2022-10-09] MEDS: TAMSULOSIN 0.4 MG CAP PO SCH (05:59)
[2022-10-09] MEDS: LACTOBACILLUS ACIDOPHILUS CAP (BACID) PO SCH ×2 (06:49→17:33)
[2022-10-09] MEDS: SUCROFERRIC OXYHYDROXIDE 500MG CHEW TAB (VELPHORO) PO SCH ×3 (06:49→17:33)
[2022-10-09] MEDS ORDERED: LIDOCAINE 1% SDV 5ML VIAL SC PRN (06:50)
[2022-10-09] MEDS ORDERED: HEPARIN 1,000UNITS/ML 10ML VIAL (FOR RADIOLOGY & DIALYSIS ONLY) IV PRN (06:50)
[2022-10-09] MEDS ORDERED: HEPARIN 1,000UNITS/ML 10ML VIAL (FOR RADIOLOGY & DIALYSIS ONLY) XX SCH (06:50)
[2022-10-09] MEDS ORDERED: SODIUM CHLORIDE 0.9% 1000ML IV PRN (06:50)
[2022-10-09] MEDS: INSULIN LISPRO (NovoLOG) PER UNIT SC SCH ×7 (07:30→20:17)
[2022-10-09] MEDS: NYSTATIN 100,000 UNITS/GM TOPICAL PWD 15GM TOP SCH ×2 (09:00→21:28)
[2022-10-09] MEDS: MUPIROCIN 2% OINT 22 GM TUBE TOP SCH (09:00)
[2022-10-09] MEDS: VANICREAM MOISTURIZING SKIN CREAM 113GM TUBE TOP SCH ×2 (09:00→21:28)
[2022-10-09] MEDS: PERCOCET 5MG/325MG TAB PO PRN (15:43)
[2022-10-09] MEDS: ATORVASTATIN 20 MG TAB PO SCH (21:27)
[2022-10-09] MEDS: LEVEMIR (INSULIN DETEMIR) 1 UNITS/0.01ML SC SCH (21:28)
[2022-10-10 05:23] VITALS: BP 144/65
[2022-10-10] MEDS: INSULIN LISPRO (NovoLOG) PER UNIT SC SCH ×7 (07:30→21:00)
[2022-10-10] MEDS: SENNA 8.6 MG TAB (SENOKOT) PO SCH (07:56)
[2022-10-10] MEDS: MIRALAX *UNIT DOSE* 17GM PACKET PO SCH (07:56)
[2022-10-10] MEDS: MIDODRINE 5 MG TAB PO SCH ×3 (08:00→16:00)
[2022-10-10] MEDS: ASPIRIN 81MG ENTERIC TABLET PO SCH (08:09)
[2022-10-10] MEDS: SUCROFERRIC OXYHYDROXIDE 500MG CHEW TAB (VELPHORO) PO SCH ×3 (08:09→17:16)
[2022-10-10] MEDS: LACTOBACILLUS ACIDOPHILUS CAP (BACID) PO SCH ×2 (08:10→17:16)
[2022-10-10] MEDS: TAMSULOSIN 0.4 MG CAP PO SCH (08:11)
[2022-10-10] MEDS: NYSTATIN 100,000 UNITS/GM TOPICAL PWD 15GM TOP SCH ×2 (08:12→21:10)
[2022-10-10] MEDS: VANICREAM MOISTURIZING SKIN CREAM 113GM TUBE TOP SCH ×2 (08:12→21:11)
[2022-10-10] MEDS: APIXABAN 5 MG TAB (ELIQUIS) PO SCH ×2 (08:13→21:03)
[2022-10-10] MEDS: DIGOXIN 0.125 MG TAB PO SCH (08:13)
[2022-10-10] MEDS: CARVedilol 6.25 MG TAB PO SCH ×2 (08:13→21:11)
[2022-10-10] MEDS: ATORVASTATIN 20 MG TAB PO SCH (21:03)
[2022-10-10] MEDS: LEVEMIR (INSULIN DETEMIR) 1 UNITS/0.01ML SC SCH (21:08)
[2022-10-11 05:38] VITALS: BP 156/65
[2022-10-11] MEDS: APIXABAN 5 MG TAB (ELIQUIS) PO SCH ×2 (06:24→21:30)
[2022-10-11] MEDS: SUCROFERRIC OXYHYDROXIDE 500MG CHEW TAB (VELPHORO) PO SCH ×3 (06:24→17:27)
[2022-10-11] MEDS: ASPIRIN 81MG ENTERIC TABLET PO SCH (06:25)
[2022-10-11] MEDS: VANICREAM MOISTURIZING SKIN CREAM 113GM TUBE TOP SCH ×2 (06:25→21:22)
[2022-10-11] MEDS: DIGOXIN 0.125 MG TAB PO SCH (06:26)
[2022-10-11] MEDS: LACTOBACILLUS ACIDOPHILUS CAP (BACID) PO SCH ×2 (06:26→17:27)
[2022-10-11] MEDS: CARVedilol 6.25 MG TAB PO SCH ×2 (06:27→21:22)
[2022-10-11] MEDS: SENNA 8.6 MG TAB (SENOKOT) PO SCH (06:27)
[2022-10-11] MEDS: TAMSULOSIN 0.4 MG CAP PO SCH (06:27)
[2022-10-11] MEDS: OMEPRAZOLE 20MG CAP PO PRN (06:27)
[2022-10-11] MEDS ORDERED: LIDOCAINE 1% SDV 5ML VIAL SC PRN (06:55)
[2022-10-11] MEDS ORDERED: SODIUM CHLORIDE 0.9% 1000ML IV PRN (06:55)
[2022-10-11] MEDS ORDERED: HEPARIN 1,000UNITS/ML 10ML VIAL (FOR RADIOLOGY & DIALYSIS ONLY) IV PRN (06:55)
[2022-10-11] MEDS ORDERED: HEPARIN 1,000UNITS/ML 10ML VIAL (FOR RADIOLOGY & DIALYSIS ONLY) XX SCH (06:55)
[2022-10-11 07:01] LABS: BASO # 0.1 10^3/uL (0.0-0.2); BASO % 1.5 % (0.0-1.0); EOS # 0.2 10^3/uL (0.0-0.5); EOS % 2.6 % (0.0-3.0); HEMATOCRIT 33.7 % (42.0-52.0); HEMOGLOBIN 10.1 g/dl (13.5-17.5); LYMPH # 1.6 10^3/uL (1.5-5.0); LYMPH % 18.3 % (24.0-44.0); MEAN CORPUSCULAR HEMOGLOBIN 29.2 pg (27.0-33.0); MEAN CORPUSCULAR VOLUME 97.4 fl (80.0-96.0); MONO # 0.9 10^3/uL (0.0-0.8); MONO % 10.5 % (2.0-8.0); NEUTROPHILS # 5.7 10^3/uL (1.5-8.5); NEUTROPHILS % 66.6 % (36.0-66.0); PLATELET COUNT, AUTOMATED 269 10^3/uL (150-450); RED BLOOD COUNT 3.46 10^6/uL (4.30-6.10); WHITE BLOOD COUNT 8.6 10^3/uL (4.0-10.0)
[2022-10-11 07:23] LABS: CALCIUM LEVEL 8.4 MG/DL (8.3-10.6); CREATININE FOR GFR 6.64 MG/DL (0.70-1.30); GLOMERULAR FILTRATION RATE 8.8 (>42); MAGNESIUM LEVEL 2.1 MG/DL (1.8-2.4); POTASSIUM SERUM 4.2 MMOL/L (3.5-5.1)
[2022-10-11] MEDS: INSULIN LISPRO (NovoLOG) PER UNIT SC SCH ×5 (07:29→21:00)
[2022-10-11] MEDS: MIDODRINE 5 MG TAB PO SCH ×3 (07:30→16:00)
[2022-10-11] MEDS: MIRALAX *UNIT DOSE* 17GM PACKET PO SCH (07:30)
[2022-10-11] MEDS: MUPIROCIN 2% OINT 22 GM TUBE TOP SCH (07:30)
[2022-10-11] MEDS: NYSTATIN 100,000 UNITS/GM TOPICAL PWD 15GM TOP SCH ×2 (08:52→21:22)
[2022-10-11 09:39] LABS: C REACTIVE PROTEIN QUANTITATIV 2.3 MG/DL (<1.0)
[2022-10-11 12:57] VITALS: BP 146/62
[2022-10-11] MEDS: PERCOCET 5MG/325MG TAB PO PRN (15:10)
[2022-10-11] MEDS: LEVEMIR (INSULIN DETEMIR) 1 UNITS/0.01ML SC SCH (21:20)
[2022-10-11] MEDS: ATORVASTATIN 20 MG TAB PO SCH (21:22)
[2022-10-12 05:30] VITALS: BP 148/53
[2022-10-12] MEDS: INSULIN LISPRO (NovoLOG) PER UNIT SC SCH ×4 (07:30→21:00)
[2022-10-12] MEDS: SUCROFERRIC OXYHYDROXIDE 500MG CHEW TAB (VELPHORO) PO SCH ×3 (08:00→17:40)
[2022-10-12] MEDS: MIDODRINE 5 MG TAB PO SCH ×3 (08:00→17:07)
[2022-10-12] MEDS: MIRALAX *UNIT DOSE* 17GM PACKET PO SCH (08:05)
[2022-10-12] MEDS: SENNA 8.6 MG TAB (SENOKOT) PO SCH (08:05)
[2022-10-12] MEDS: ASPIRIN 81MG ENTERIC TABLET PO SCH (08:18)
[2022-10-12] MEDS: LACTOBACILLUS ACIDOPHILUS CAP (BACID) PO SCH ×2 (08:18→17:40)
[2022-10-12] MEDS: TAMSULOSIN 0.4 MG CAP PO SCH (08:18)
[2022-10-12] MEDS: CARVedilol 6.25 MG TAB PO SCH ×2 (08:19→20:25)
[2022-10-12] MEDS: NYSTATIN 100,000 UNITS/GM TOPICAL PWD 15GM TOP SCH ×2 (08:20→20:27)
[2022-10-12] MEDS: DIGOXIN 0.125 MG TAB PO SCH (08:20)
[2022-10-12] MEDS: APIXABAN 5 MG TAB (ELIQUIS) PO SCH ×2 (08:20→21:00)
[2022-10-12] MEDS: VANICREAM MOISTURIZING SKIN CREAM 113GM TUBE TOP SCH ×2 (08:21→21:00)
[2022-10-12] MEDS: LEVEMIR (INSULIN DETEMIR) 1 UNITS/0.01ML SC SCH (20:24)
[2022-10-12] MEDS: ATORVASTATIN 20 MG TAB PO SCH (20:26)
[2022-10-13 05:20] VITALS: BP 181/80
[2022-10-13 06:00] VITALS: BP 148/65
[2022-10-13] MEDS: INSULIN LISPRO (NovoLOG) PER UNIT SC SCH ×4 (07:30→21:00)
[2022-10-13] MEDS: SUCROFERRIC OXYHYDROXIDE 500MG CHEW TAB (VELPHORO) PO SCH ×3 (07:32→17:58)
[2022-10-13] MEDS: MIDODRINE 5 MG TAB PO SCH (08:00)
[2022-10-13] MEDS: SENNA 8.6 MG TAB (SENOKOT) PO SCH (09:00)
[2022-10-13] MEDS: MIRALAX *UNIT DOSE* 17GM PACKET PO SCH (09:00)
[2022-10-13] MEDS: ASPIRIN 81MG ENTERIC TABLET PO SCH (09:45)
[2022-10-13] MEDS: LACTOBACILLUS ACIDOPHILUS CAP (BACID) PO SCH ×2 (09:45→17:58)
[2022-10-13] MEDS: DARBEPOETIN 200MCG/0.4ML *NON-DIALYSIS* SYRINGE SC SCH (09:45)
[2022-10-13] MEDS: TAMSULOSIN 0.4 MG CAP PO SCH (09:46)
[2022-10-13] MEDS: APIXABAN 5 MG TAB (ELIQUIS) PO SCH ×2 (09:46→21:10)
[2022-10-13] MEDS: MUPIROCIN 2% OINT 22 GM TUBE TOP SCH (09:47)
[2022-10-13] MEDS: DIGOXIN 0.125 MG TAB PO SCH (09:48)
[2022-10-13] MEDS: NYSTATIN 100,000 UNITS/GM TOPICAL PWD 15GM TOP SCH ×2 (09:48→21:12)
[2022-10-13] MEDS: VANICREAM MOISTURIZING SKIN CREAM 113GM TUBE TOP SCH ×2 (09:48→21:13)
[2022-10-13] MEDS: CARVedilol 6.25 MG TAB PO SCH ×2 (09:49→21:11)
[2022-10-13] MEDS ORDERED: CARVedilol 6.25 MG TAB PO ONE (10:05)
[2022-10-13] MEDS: SUCRALFATE SUSP 1GM/10ML UD PO SCH ×3 (11:29→21:09)
[2022-10-13] MEDS: PANTOPRAZOLE 40MG TAB (PROTONIX) PO SCH ×2 (11:29→21:10)
[2022-10-13 11:49] LABS: BASO # 0.2 10^3/uL (0.0-0.2); BASO % 1.6 % (0.0-1.0); EOS # 0.2 10^3/uL (0.0-0.5); EOS % 2.5 % (0.0-3.0); HEMATOCRIT 35.7 % (42.0-52.0); HEMOGLOBIN 10.8 g/dl (13.5-17.5); LYMPH # 1.8 10^3/uL (1.5-5.0); LYMPH % 18.8 % (24.0-44.0); MEAN CORPUSCULAR HGB CONC 30.3 g/dl (32.0-36.5); MEAN CORPUSCULAR VOLUME 95.7 fl (80.0-96.0); MONO # 0.9 10^3/uL (0.0-0.8); MONO % 9.1 % (2.0-8.0); NEUTROPHILS # 6.2 10^3/uL (1.5-8.5); NEUTROPHILS % 67.2 % (36.0-66.0); PLATELET COUNT, AUTOMATED 271 10^3/uL (150-450); RED BLOOD COUNT 3.73 10^6/uL (4.30-6.10); WHITE BLOOD COUNT 9.3 10^3/uL (4.0-10.0)
[2022-10-13] MEDS: **hydrALAZINE** 10 MG TAB PO SCH ×2 (15:32→21:09)
[2022-10-13 21:00] VITALS: BP 178/67
[2022-10-13] MEDS: ATORVASTATIN 20 MG TAB PO SCH (21:10)
[2022-10-13] MEDS: LEVEMIR (INSULIN DETEMIR) 1 UNITS/0.01ML SC SCH (21:12)
[2022-10-14] MEDS: **hydrALAZINE** 10 MG TAB PO SCH ×3 (05:19→13:56)
[2022-10-14] MEDS: SUCROFERRIC OXYHYDROXIDE 500MG CHEW TAB (VELPHORO) PO SCH ×3 (05:52→17:21)
[2022-10-14] MEDS: LACTOBACILLUS ACIDOPHILUS CAP (BACID) PO SCH ×2 (05:52→17:21)
[2022-10-14] MEDS: ASPIRIN 81MG ENTERIC TABLET PO SCH (05:52)
[2022-10-14] MEDS: ATORVASTATIN 20 MG TAB PO SCH (05:53)
[2022-10-14] MEDS: TAMSULOSIN 0.4 MG CAP PO SCH (05:53)
[2022-10-14] MEDS: PANTOPRAZOLE 40MG TAB (PROTONIX) PO SCH ×2 (05:53→21:49)
[2022-10-14] MEDS: DIGOXIN 0.125 MG TAB PO SCH (05:54)
[2022-10-14] MEDS: CARVedilol 6.25 MG TAB PO SCH ×2 (05:54→21:52)
[2022-10-14] MEDS: APIXABAN 5 MG TAB (ELIQUIS) PO SCH ×2 (05:55→21:54)
[2022-10-14] MEDS: SENNA 8.6 MG TAB (SENOKOT) PO SCH (05:55)
[2022-10-14] MEDS: NYSTATIN 100,000 UNITS/GM TOPICAL PWD 15GM TOP SCH ×2 (05:56→21:54)
[2022-10-14] MEDS: VANICREAM MOISTURIZING SKIN CREAM 113GM TUBE TOP SCH ×2 (05:57→21:53)
[2022-10-14] MEDS: SUCRALFATE SUSP 1GM/10ML UD PO SCH ×4 (06:00→21:00)
[2022-10-14] MEDS ORDERED: HEPARIN 1,000UNITS/ML 10ML VIAL (FOR RADIOLOGY & DIALYSIS ONLY) IV PRN (06:00)
[2022-10-14] MEDS ORDERED: HEPARIN 1,000UNITS/ML 10ML VIAL (FOR RADIOLOGY & DIALYSIS ONLY) XX SCH (06:00)
[2022-10-14] MEDS ORDERED: SODIUM CHLORIDE 0.9% 1000ML IV PRN (06:00)
[2022-10-14] MEDS ORDERED: LIDOCAINE 1% SDV 5ML VIAL SC PRN (06:00)
[2022-10-14 06:55] VITALS: BP 129/70
[2022-10-14] MEDS: INSULIN LISPRO (NovoLOG) PER UNIT SC SCH ×4 (07:30→21:00)
[2022-10-14] MEDS: MIRALAX *UNIT DOSE* 17GM PACKET PO SCH (07:39)
[2022-10-14 11:45] LABS: HEPATITIS B SURFACE ANTIBODY NEGATIVE (POSITIVE)
[2022-10-14 11:58] LABS: HEPATITIS B SURFACE ANTIGEN NEGATIVE (NEGATIVE)
[2022-10-14 12:17] LABS: HEPATITIS B CORE ANTIBODY IGM NEGATIVE (NEGATIVE); HEPATITIS C VIRUS ABY INDEX 0.1 INDEX (<0.8)
[2022-10-14] MEDS: PERCOCET 5MG/325MG TAB PO PRN (14:03)
[2022-10-14] MEDS: LEVEMIR (INSULIN DETEMIR) 1 UNITS/0.01ML SC SCH (21:53)
[2022-10-15] MEDS: **hydrALAZINE** 10 MG TAB PO SCH ×3 (05:27→22:00)
[2022-10-15 05:32] VITALS: BP 152/86
[2022-10-15] MEDS: SUCRALFATE SUSP 1GM/10ML UD PO SCH ×4 (07:30→21:00)
[2022-10-15] MEDS: SUCROFERRIC OXYHYDROXIDE 500MG CHEW TAB (VELPHORO) PO SCH ×3 (08:00→17:07)
[2022-10-15] MEDS: LACTOBACILLUS ACIDOPHILUS CAP (BACID) PO SCH ×2 (08:00→17:07)
[2022-10-15] MEDS: TAMSULOSIN 0.4 MG CAP PO SCH (08:16)
[2022-10-15] MEDS: CARVedilol 6.25 MG TAB PO SCH ×2 (08:17→21:56)
[2022-10-15] MEDS: PANTOPRAZOLE 40MG TAB (PROTONIX) PO SCH ×2 (08:17→21:56)
[2022-10-15] MEDS: ASPIRIN 81MG ENTERIC TABLET PO SCH (08:17)
[2022-10-15] MEDS: APIXABAN 5 MG TAB (ELIQUIS) PO SCH ×2 (08:17→21:55)
[2022-10-15] MEDS: SENNA 8.6 MG TAB (SENOKOT) PO SCH (08:18)
[2022-10-15] MEDS: MIRALAX *UNIT DOSE* 17GM PACKET PO SCH (08:18)
[2022-10-15] MEDS: DIGOXIN 0.125 MG TAB PO SCH (08:18)
[2022-10-15] MEDS: INSULIN LISPRO (NovoLOG) PER UNIT SC SCH ×4 (08:19→21:00)
[2022-10-15] MEDS: MUPIROCIN 2% OINT 22 GM TUBE TOP SCH (08:20)
[2022-10-15] MEDS: NYSTATIN 100,000 UNITS/GM TOPICAL PWD 15GM TOP SCH ×2 (08:20→21:57)
[2022-10-15] MEDS: VANICREAM MOISTURIZING SKIN CREAM 113GM TUBE TOP SCH ×2 (08:23→21:57)
[2022-10-15] MEDS: PERCOCET 5MG/325MG TAB PO PRN (11:49)
[2022-10-15 13:42] VITALS: BP 134/61
[2022-10-15] MEDS: LEVEMIR (INSULIN DETEMIR) 1 UNITS/0.01ML SC SCH (21:55)
[2022-10-15] MEDS: ATORVASTATIN 20 MG TAB PO SCH (21:56)
[2022-10-16 06:00] VITALS: BP 131/56
[2022-10-16] MEDS ORDERED: HEPARIN 1,000UNITS/ML 10ML VIAL (FOR RADIOLOGY & DIALYSIS ONLY) XX SCH (06:00)
[2022-10-16] MEDS ORDERED: SODIUM CHLORIDE 0.9% 1000ML IV PRN (06:00)
[2022-10-16] MEDS ORDERED: HEPARIN 1,000UNITS/ML 10ML VIAL (FOR RADIOLOGY & DIALYSIS ONLY) IV PRN (06:00)
[2022-10-16] MEDS ORDERED: LIDOCAINE 1% SDV 5ML VIAL SC PRN (06:00)
[2022-10-16] MEDS: SUCRALFATE SUSP 1GM/10ML UD PO SCH ×4 (06:20→22:03)
[2022-10-16] MEDS: SENNA 8.6 MG TAB (SENOKOT) PO SCH (06:21)
[2022-10-16] MEDS: MIRALAX *UNIT DOSE* 17GM PACKET PO SCH (06:21)
[2022-10-16] MEDS: VANICREAM MOISTURIZING SKIN CREAM 113GM TUBE TOP SCH ×2 (06:24→22:03)
[2022-10-16] MEDS: LACTOBACILLUS ACIDOPHILUS CAP (BACID) PO SCH ×2 (06:28→17:16)
[2022-10-16] MEDS: APIXABAN 5 MG TAB (ELIQUIS) PO SCH ×2 (06:28→21:58)
[2022-10-16] MEDS: ASPIRIN 81MG ENTERIC TABLET PO SCH (06:28)
[2022-10-16] MEDS: DIGOXIN 0.125 MG TAB PO SCH (06:28)
[2022-10-16] MEDS: **hydrALAZINE** 10 MG TAB PO SCH ×3 (06:28→22:03)
[2022-10-16] MEDS: CARVedilol 6.25 MG TAB PO SCH ×2 (06:29→22:02)
[2022-10-16] MEDS: PANTOPRAZOLE 40MG TAB (PROTONIX) PO SCH ×2 (06:29→21:58)
[2022-10-16] MEDS: SUCROFERRIC OXYHYDROXIDE 500MG CHEW TAB (VELPHORO) PO SCH ×3 (06:31→17:16)
[2022-10-16] MEDS: NYSTATIN 100,000 UNITS/GM TOPICAL PWD 15GM TOP SCH ×2 (06:34→21:58)
[2022-10-16] MEDS: TAMSULOSIN 0.4 MG CAP PO SCH (06:35)
[2022-10-16] MEDS: INSULIN LISPRO (NovoLOG) PER UNIT SC SCH ×4 (06:44→21:00)
[2022-10-16] MEDS: ACETAMINOPHEN TAB 650MG DOSE (2X325MG) PO PRN (14:00)
[2022-10-16] MEDS: ATORVASTATIN 20 MG TAB PO SCH (21:58)
[2022-10-16] MEDS: LEVEMIR (INSULIN DETEMIR) 1 UNITS/0.01ML SC SCH (21:59)
[2022-10-17 05:10] VITALS: BP 133/56
[2022-10-17] MEDS ORDERED: SODIUM CHLORIDE 0.9% 1000ML IV PRN (06:00)
[2022-10-17] MEDS ORDERED: HEPARIN 1,000UNITS/ML 10ML VIAL (FOR RADIOLOGY & DIALYSIS ONLY) IV PRN (06:00)
[2022-10-17] MEDS: **hydrALAZINE** 10 MG TAB PO SCH ×3 (06:00→22:00)
[2022-10-17] MEDS ORDERED: LIDOCAINE 1% SDV 5ML VIAL SC PRN (06:00)
[2022-10-17] MEDS ORDERED: HEPARIN 1,000UNITS/ML 10ML VIAL (FOR RADIOLOGY & DIALYSIS ONLY) XX SCH (06:00)
[2022-10-17] MEDS: SUCRALFATE SUSP 1GM/10ML UD PO SCH ×4 (06:05→20:41)
[2022-10-17] MEDS: MIRALAX *UNIT DOSE* 17GM PACKET PO SCH (06:05)
[2022-10-17] MEDS: DIGOXIN 0.125 MG TAB PO SCH (06:14)
[2022-10-17] MEDS: TAMSULOSIN 0.4 MG CAP PO SCH (06:15)
[2022-10-17] MEDS: CARVedilol 6.25 MG TAB PO SCH ×2 (06:15→20:41)
[2022-10-17] MEDS: SENNA 8.6 MG TAB (SENOKOT) PO SCH (06:15)
[2022-10-17] MEDS: APIXABAN 5 MG TAB (ELIQUIS) PO SCH ×2 (06:15→20:40)
[2022-10-17] MEDS: PANTOPRAZOLE 40MG TAB (PROTONIX) PO SCH ×2 (06:15→20:41)
[2022-10-17] MEDS: NYSTATIN 100,000 UNITS/GM TOPICAL PWD 15GM TOP SCH ×2 (06:16→20:42)
[2022-10-17] MEDS: ASPIRIN 81MG ENTERIC TABLET PO SCH (06:16)
[2022-10-17] MEDS: MUPIROCIN 2% OINT 22 GM TUBE TOP SCH (06:16)
[2022-10-17] MEDS: VANICREAM MOISTURIZING SKIN CREAM 113GM TUBE TOP SCH ×2 (06:17→20:43)
[2022-10-17] MEDS: LACTOBACILLUS ACIDOPHILUS CAP (BACID) PO SCH ×2 (07:23→17:42)
[2022-10-17] MEDS: SUCROFERRIC OXYHYDROXIDE 500MG CHEW TAB (VELPHORO) PO SCH ×3 (07:23→17:42)
[2022-10-17] MEDS: INSULIN LISPRO (NovoLOG) PER UNIT SC SCH ×4 (07:23→21:00)
[2022-10-17] MEDS: ATORVASTATIN 20 MG TAB PO SCH (20:39)
[2022-10-17] MEDS: LEVEMIR (INSULIN DETEMIR) 1 UNITS/0.01ML SC SCH (20:42)
[2022-10-18 05:37] VITALS: BP 130/52
[2022-10-18] MEDS: **hydrALAZINE** 10 MG TAB PO SCH ×3 (06:00→22:00)
[2022-10-18] MEDS: SUCRALFATE SUSP 1GM/10ML UD PO SCH ×4 (07:30→21:00)
[2022-10-18] MEDS: INSULIN LISPRO (NovoLOG) PER UNIT SC SCH ×4 (07:30→21:00)
[2022-10-18] MEDS: SUCROFERRIC OXYHYDROXIDE 500MG CHEW TAB (VELPHORO) PO SCH ×3 (08:00→17:40)
[2022-10-18] MEDS: SENNA 8.6 MG TAB (SENOKOT) PO SCH (08:23)
[2022-10-18] MEDS: ASPIRIN 81MG ENTERIC TABLET PO SCH (08:23)
[2022-10-18] MEDS: LACTOBACILLUS ACIDOPHILUS CAP (BACID) PO SCH ×2 (08:23→17:39)
[2022-10-18] MEDS: PANTOPRAZOLE 40MG TAB (PROTONIX) PO SCH ×2 (08:23→21:58)
[2022-10-18] MEDS: TAMSULOSIN 0.4 MG CAP PO SCH (08:23)
[2022-10-18] MEDS: APIXABAN 5 MG TAB (ELIQUIS) PO SCH ×2 (08:23→21:58)
[2022-10-18] MEDS: VANICREAM MOISTURIZING SKIN CREAM 113GM TUBE TOP SCH ×2 (08:23→21:59)
[2022-10-18] MEDS: NYSTATIN 100,000 UNITS/GM TOPICAL PWD 15GM TOP SCH ×2 (08:24→22:00)
[2022-10-18] MEDS: PERCOCET 5MG/325MG TAB PO PRN (08:26)
[2022-10-18] MEDS: CARVedilol 6.25 MG TAB PO SCH ×2 (08:26→21:58)
[2022-10-18] MEDS: DIGOXIN 0.125 MG TAB PO SCH (08:27)
[2022-10-18] MEDS: MIRALAX *UNIT DOSE* 17GM PACKET PO SCH (08:30)
[2022-10-18] MEDS: ATORVASTATIN 20 MG TAB PO SCH (21:59)
[2022-10-18] MEDS: LEVEMIR (INSULIN DETEMIR) 1 UNITS/0.01ML SC SCH (21:59)
[2022-10-19 05:29] VITALS: BP 152/63
[2022-10-19] MEDS ORDERED: SODIUM CHLORIDE 0.9% 1000ML IV PRN (06:00)
[2022-10-19] MEDS ORDERED: HEPARIN 1,000UNITS/ML 10ML VIAL (FOR RADIOLOGY & DIALYSIS ONLY) IV PRN (06:00)
[2022-10-19] MEDS ORDERED: LIDOCAINE 1% SDV 5ML VIAL SC PRN (06:00)
[2022-10-19] MEDS ORDERED: HEPARIN 1,000UNITS/ML 10ML VIAL (FOR RADIOLOGY & DIALYSIS ONLY) XX SCH (06:00)
[2022-10-19] MEDS: SUCRALFATE SUSP 1GM/10ML UD PO SCH ×4 (06:12→21:00)
[2022-10-19] MEDS: MIRALAX *UNIT DOSE* 17GM PACKET PO SCH (06:13)
[2022-10-19] MEDS: SENNA 8.6 MG TAB (SENOKOT) PO SCH ×2 (06:13→06:27)
[2022-10-19] MEDS: NYSTATIN 100,000 UNITS/GM TOPICAL PWD 15GM TOP SCH ×2 (06:17→22:15)
[2022-10-19] MEDS: VANICREAM MOISTURIZING SKIN CREAM 113GM TUBE TOP SCH ×2 (06:17→22:14)
[2022-10-19] MEDS: LACTOBACILLUS ACIDOPHILUS CAP (BACID) PO SCH ×2 (06:24→18:15)
[2022-10-19] MEDS: DIGOXIN 0.125 MG TAB PO SCH (06:24)
[2022-10-19] MEDS: APIXABAN 5 MG TAB (ELIQUIS) PO SCH ×2 (06:24→22:13)
[2022-10-19] MEDS: **hydrALAZINE** 10 MG TAB PO SCH ×3 (06:25→22:09)
[2022-10-19] MEDS: PANTOPRAZOLE 40MG TAB (PROTONIX) PO SCH ×2 (06:25→22:12)
[2022-10-19] MEDS: TAMSULOSIN 0.4 MG CAP PO SCH (06:25)
[2022-10-19] MEDS: ASPIRIN 81MG ENTERIC TABLET PO SCH (06:25)
[2022-10-19] MEDS: CARVedilol 6.25 MG TAB PO SCH ×2 (06:25→22:13)
[2022-10-19] MEDS: SUCROFERRIC OXYHYDROXIDE 500MG CHEW TAB (VELPHORO) PO SCH ×3 (06:26→18:15)
[2022-10-19] MEDS: MUPIROCIN 2% OINT 22 GM TUBE TOP SCH (06:31)
[2022-10-19] MEDS: INSULIN LISPRO (NovoLOG) PER UNIT SC SCH ×4 (07:30→21:00)
[2022-10-19] MEDS: PERCOCET 5MG/325MG TAB PO PRN (18:19)
[2022-10-19] MEDS: ATORVASTATIN 20 MG TAB PO SCH (22:13)
[2022-10-19] MEDS: LEVEMIR (INSULIN DETEMIR) 1 UNITS/0.01ML SC SCH (22:14)
[2022-10-20 05:53] VITALS: BP 110/55
[2022-10-20] MEDS: **hydrALAZINE** 10 MG TAB PO SCH ×3 (06:00→21:59)
[2022-10-20] MEDS: SUCRALFATE SUSP 1GM/10ML UD PO SCH ×4 (07:30→22:07)
[2022-10-20] MEDS: INSULIN LISPRO (NovoLOG) PER UNIT SC SCH ×4 (07:30→21:00)
[2022-10-20] MEDS: SUCROFERRIC OXYHYDROXIDE 500MG CHEW TAB (VELPHORO) PO SCH ×3 (08:00→17:27)
[2022-10-20] MEDS: ASPIRIN 81MG ENTERIC TABLET PO SCH (08:16)
[2022-10-20] MEDS: LACTOBACILLUS ACIDOPHILUS CAP (BACID) PO SCH ×2 (08:16→17:28)
[2022-10-20] MEDS: SENNA 8.6 MG TAB (SENOKOT) PO SCH (08:17)
[2022-10-20] MEDS: PANTOPRAZOLE 40MG TAB (PROTONIX) PO SCH ×2 (08:17→22:07)
[2022-10-20] MEDS: APIXABAN 5 MG TAB (ELIQUIS) PO SCH ×2 (08:17→22:06)
[2022-10-20] MEDS: DIGOXIN 0.125 MG TAB PO SCH (08:18)
[2022-10-20] MEDS: TAMSULOSIN 0.4 MG CAP PO SCH (08:18)
[2022-10-20] MEDS: MIRALAX *UNIT DOSE* 17GM PACKET PO SCH (08:18)
[2022-10-20] MEDS: CARVedilol 6.25 MG TAB PO SCH ×2 (08:20→22:06)
[2022-10-20] MEDS: NYSTATIN 100,000 UNITS/GM TOPICAL PWD 15GM TOP SCH ×2 (08:22→22:07)
[2022-10-20] MEDS: VANICREAM MOISTURIZING SKIN CREAM 113GM TUBE TOP SCH ×2 (08:23→22:07)
[2022-10-20 09:33] LABS: HEMATOCRIT 39.5 % (42.0-52.0); HEMOGLOBIN 11.9 g/dl (13.5-17.5); MEAN CORPUSCULAR HEMOGLOBIN 28.7 pg (27.0-33.0); MEAN CORPUSCULAR HGB CONC 30.1 g/dl (32.0-36.5); MEAN CORPUSCULAR VOLUME 95.2 fl (80.0-96.0); PLATELET COUNT, AUTOMATED 208 10^3/uL (150-450); RED BLOOD COUNT 4.15 10^6/uL (4.30-6.10); WHITE BLOOD COUNT 8.8 10^3/uL (4.0-10.0)
[2022-10-20] MEDS: DARBEPOETIN 200MCG/0.4ML *NON-DIALYSIS* SYRINGE SC SCH (10:12)
[2022-10-20 21:58] VITALS: BP 119/71
[2022-10-20] MEDS: ATORVASTATIN 20 MG TAB PO SCH (22:05)
[2022-10-20] MEDS: LEVEMIR (INSULIN DETEMIR) 1 UNITS/0.01ML SC SCH (22:08)
[2022-10-21 05:26] VITALS: BP 144/59
[2022-10-21] MEDS: **hydrALAZINE** 10 MG TAB PO SCH ×3 (05:27→21:04)
[2022-10-21] MEDS: SUCRALFATE SUSP 1GM/10ML UD PO SCH ×4 (05:28→20:54)
[2022-10-21] MEDS: MIRALAX *UNIT DOSE* 17GM PACKET PO SCH (05:28)
[2022-10-21] MEDS: SUCROFERRIC OXYHYDROXIDE 500MG CHEW TAB (VELPHORO) PO SCH ×3 (05:38→18:00)
[2022-10-21] MEDS: TAMSULOSIN 0.4 MG CAP PO SCH (05:39)
[2022-10-21] MEDS: APIXABAN 5 MG TAB (ELIQUIS) PO SCH ×2 (05:39→21:02)
[2022-10-21] MEDS: ASPIRIN 81MG ENTERIC TABLET PO SCH (05:39)
[2022-10-21] MEDS: PANTOPRAZOLE 40MG TAB (PROTONIX) PO SCH ×2 (05:39→21:02)
[2022-10-21] MEDS: LACTOBACILLUS ACIDOPHILUS CAP (BACID) PO SCH ×2 (05:39→17:31)
[2022-10-21] MEDS: SENNA 8.6 MG TAB (SENOKOT) PO SCH (05:39)
[2022-10-21] MEDS: CARVedilol 6.25 MG TAB PO SCH ×2 (05:39→21:02)
[2022-10-21] MEDS: DIGOXIN 0.125 MG TAB PO SCH (05:39)
[2022-10-21] MEDS ORDERED: LIDOCAINE 1% SDV 5ML VIAL SC PRN (06:00)
[2022-10-21] MEDS ORDERED: SODIUM CHLORIDE 0.9% 1000ML IV PRN (06:00)
[2022-10-21] MEDS: INSULIN LISPRO (NovoLOG) PER UNIT SC SCH ×4 (07:30→21:03)
[2022-10-21] MEDS: VANICREAM MOISTURIZING SKIN CREAM 113GM TUBE TOP SCH ×2 (07:45→21:04)
[2022-10-21] MEDS: NYSTATIN 100,000 UNITS/GM TOPICAL PWD 15GM TOP SCH ×2 (07:45→21:04)
[2022-10-21] MEDS: MUPIROCIN 2% OINT 22 GM TUBE TOP SCH (08:04)
[2022-10-21] MEDS: PERCOCET 5MG/325MG TAB PO PRN (17:31)
[2022-10-21 20:54] VITALS: BP 125/58
[2022-10-21] MEDS: ATORVASTATIN 20 MG TAB PO SCH (21:02)
[2022-10-21] MEDS: LEVEMIR (INSULIN DETEMIR) 1 UNITS/0.01ML SC SCH (21:03)
[2022-10-22 05:30] VITALS: BP 134/61
[2022-10-22] MEDS: **hydrALAZINE** 10 MG TAB PO SCH ×3 (05:37→21:08)
[2022-10-22] MEDS: SUCRALFATE SUSP 1GM/10ML UD PO SCH ×4 (07:30→21:00)
[2022-10-22] MEDS: INSULIN LISPRO (NovoLOG) PER UNIT SC SCH ×4 (07:30→21:19)
[2022-10-22] MEDS: SUCROFERRIC OXYHYDROXIDE 500MG CHEW TAB (VELPHORO) PO SCH ×3 (08:00→17:52)
[2022-10-22] MEDS: SENNA 8.6 MG TAB (SENOKOT) PO SCH (08:30)
[2022-10-22] MEDS: MIRALAX *UNIT DOSE* 17GM PACKET PO SCH (08:30)
[2022-10-22] MEDS: ASPIRIN 81MG ENTERIC TABLET PO SCH (08:36)
[2022-10-22] MEDS: LACTOBACILLUS ACIDOPHILUS CAP (BACID) PO SCH ×2 (08:36→17:51)
[2022-10-22] MEDS: CARVedilol 6.25 MG TAB PO SCH ×2 (08:40→21:17)
[2022-10-22] MEDS: DIGOXIN 0.125 MG TAB PO SCH (08:41)
[2022-10-22] MEDS: APIXABAN 5 MG TAB (ELIQUIS) PO SCH ×2 (08:42→21:16)
[2022-10-22] MEDS: TAMSULOSIN 0.4 MG CAP PO SCH (08:42)
[2022-10-22] MEDS: PANTOPRAZOLE 40MG TAB (PROTONIX) PO SCH ×2 (08:42→21:16)
[2022-10-22] MEDS: VANICREAM MOISTURIZING SKIN CREAM 113GM TUBE TOP SCH ×2 (08:43→21:19)
[2022-10-22] MEDS: NYSTATIN 100,000 UNITS/GM TOPICAL PWD 15GM TOP SCH ×2 (12:21→21:20)
[2022-10-22] MEDS: ACETAMINOPHEN TAB 650MG DOSE (2X325MG) PO PRN (12:27)
[2022-10-22] MEDS: ATORVASTATIN 20 MG TAB PO SCH (21:16)
[2022-10-22] MEDS: LEVEMIR (INSULIN DETEMIR) 1 UNITS/0.01ML SC SCH (21:17)
[2022-10-23 05:10] VITALS: BP 131/60
[2022-10-23] MEDS: SUCRALFATE SUSP 1GM/10ML UD PO SCH ×4 (05:20→20:52)
[2022-10-23] MEDS: **hydrALAZINE** 10 MG TAB PO SCH ×3 (05:20→21:00)
[2022-10-23] MEDS: NYSTATIN 100,000 UNITS/GM TOPICAL PWD 15GM TOP SCH ×2 (05:21→20:59)
[2022-10-23] MEDS: VANICREAM MOISTURIZING SKIN CREAM 113GM TUBE TOP SCH ×2 (05:21→20:59)
[2022-10-23] MEDS: MUPIROCIN 2% OINT 22 GM TUBE TOP SCH (05:21)
[2022-10-23] MEDS: MIRALAX *UNIT DOSE* 17GM PACKET PO SCH (05:21)
[2022-10-23] MEDS: SENNA 8.6 MG TAB (SENOKOT) PO SCH (05:21)
[2022-10-23] MEDS: PANTOPRAZOLE 40MG TAB (PROTONIX) PO SCH ×2 (05:30→20:58)
[2022-10-23] MEDS: ASPIRIN 81MG ENTERIC TABLET PO SCH (05:30)
[2022-10-23] MEDS: TAMSULOSIN 0.4 MG CAP PO SCH (05:30)
[2022-10-23] MEDS: APIXABAN 5 MG TAB (ELIQUIS) PO SCH ×2 (05:30→20:58)
[2022-10-23] MEDS: LACTOBACILLUS ACIDOPHILUS CAP (BACID) PO SCH ×2 (05:30→17:40)
[2022-10-23] MEDS: DIGOXIN 0.125 MG TAB PO SCH (05:30)
[2022-10-23] MEDS: SUCROFERRIC OXYHYDROXIDE 500MG CHEW TAB (VELPHORO) PO SCH ×3 (05:31→17:39)
[2022-10-23] MEDS: CARVedilol 6.25 MG TAB PO SCH ×2 (05:31→20:52)
[2022-10-23] MEDS: INSULIN LISPRO (NovoLOG) PER UNIT SC SCH ×4 (05:33→20:58)
[2022-10-23] MEDS ORDERED: SODIUM CHLORIDE 0.9% 1000ML IV PRN (06:00)
[2022-10-23] MEDS ORDERED: LIDOCAINE 1% SDV 5ML VIAL SC PRN (06:00)
[2022-10-23] MEDS: PERCOCET 5MG/325MG TAB PO PRN (11:16)
[2022-10-23 20:49] VITALS: BP 111/50
[2022-10-23] MEDS: LEVEMIR (INSULIN DETEMIR) 1 UNITS/0.01ML SC SCH (20:58)
[2022-10-23] MEDS: ATORVASTATIN 20 MG TAB PO SCH (20:58)
[2022-10-24 06:00] VITALS: BP 111/53
[2022-10-24] MEDS: **hydrALAZINE** 10 MG TAB PO SCH ×3 (06:00→21:19)
[2022-10-24] MEDS: SUCRALFATE SUSP 1GM/10ML UD PO SCH ×4 (07:30→21:00)
[2022-10-24] MEDS: SUCROFERRIC OXYHYDROXIDE 500MG CHEW TAB (VELPHORO) PO SCH ×3 (08:00→18:27)
[2022-10-24 08:21] VITALS: BP 143/78
[2022-10-24] MEDS: INSULIN LISPRO (NovoLOG) PER UNIT SC SCH ×4 (08:22→21:19)
[2022-10-24] MEDS: LACTOBACILLUS ACIDOPHILUS CAP (BACID) PO SCH ×2 (08:22→18:27)
[2022-10-24] MEDS: APIXABAN 5 MG TAB (ELIQUIS) PO SCH ×2 (08:23→21:18)
[2022-10-24] MEDS: CARVedilol 6.25 MG TAB PO SCH ×2 (08:23→21:19)
[2022-10-24] MEDS: MIRALAX *UNIT DOSE* 17GM PACKET PO SCH (08:23)
[2022-10-24] MEDS: PANTOPRAZOLE 40MG TAB (PROTONIX) PO SCH ×2 (08:23→21:18)
[2022-10-24] MEDS: TAMSULOSIN 0.4 MG CAP PO SCH (08:23)
[2022-10-24] MEDS: ASPIRIN 81MG ENTERIC TABLET PO SCH (08:23)
[2022-10-24] MEDS: VANICREAM MOISTURIZING SKIN CREAM 113GM TUBE TOP SCH ×2 (08:24→21:21)
[2022-10-24] MEDS: SENNA 8.6 MG TAB (SENOKOT) PO SCH (08:24)
[2022-10-24] MEDS: NYSTATIN 100,000 UNITS/GM TOPICAL PWD 15GM TOP SCH ×2 (08:25→21:00)
[2022-10-24] MEDS: DIGOXIN 0.125 MG TAB PO SCH (08:26)
[2022-10-24] MEDS: PERCOCET 5MG/325MG TAB PO PRN (08:32)
[2022-10-24 13:07] VITALS: BP 170/68
[2022-10-24] MEDS: ATORVASTATIN 20 MG TAB PO SCH (21:18)
[2022-10-24] MEDS: LEVEMIR (INSULIN DETEMIR) 1 UNITS/0.01ML SC SCH (21:18)
[2022-10-25] MEDS: MIRALAX *UNIT DOSE* 17GM PACKET PO SCH (05:30)
[2022-10-25] MEDS: SUCROFERRIC OXYHYDROXIDE 500MG CHEW TAB (VELPHORO) PO SCH ×3 (05:30→17:01)
[2022-10-25] MEDS: MUPIROCIN 2% OINT 22 GM TUBE TOP SCH (05:30)
[2022-10-25] MEDS: SUCRALFATE SUSP 1GM/10ML UD PO SCH ×4 (05:31→21:00)
[2022-10-25 05:39] VITALS: BP 144/72
[2022-10-25] MEDS: PANTOPRAZOLE 40MG TAB (PROTONIX) PO SCH ×2 (05:41→21:17)
[2022-10-25] MEDS: LACTOBACILLUS ACIDOPHILUS CAP (BACID) PO SCH ×2 (05:41→17:00)
[2022-10-25] MEDS: APIXABAN 5 MG TAB (ELIQUIS) PO SCH ×2 (05:42→21:17)
[2022-10-25] MEDS: ASPIRIN 81MG ENTERIC TABLET PO SCH (05:42)
[2022-10-25] MEDS: TAMSULOSIN 0.4 MG CAP PO SCH (05:43)
[2022-10-25] MEDS: CARVedilol 6.25 MG TAB PO SCH ×2 (05:46→21:18)
[2022-10-25] MEDS: DIGOXIN 0.125 MG TAB PO SCH (05:46)
[2022-10-25] MEDS: SENNA 8.6 MG TAB (SENOKOT) PO SCH (05:47)
[2022-10-25] MEDS: **hydrALAZINE** 10 MG TAB PO SCH ×3 (05:47→21:12)
[2022-10-25] MEDS: VANICREAM MOISTURIZING SKIN CREAM 113GM TUBE TOP SCH ×2 (05:48→21:19)
[2022-10-25] MEDS: NYSTATIN 100,000 UNITS/GM TOPICAL PWD 15GM TOP SCH ×2 (05:48→21:20)
[2022-10-25] MEDS ORDERED: LIDOCAINE 1% SDV 5ML VIAL SC PRN ×2 (06:00→08:00)
[2022-10-25] MEDS ORDERED: SODIUM CHLORIDE 0.9% 1000ML IV PRN (06:00)
[2022-10-25] MEDS: INSULIN LISPRO (NovoLOG) PER UNIT SC SCH ×5 (07:30→21:19)
[2022-10-25] MEDS: PERCOCET 5MG/325MG TAB PO PRN ×2 (07:58→14:16)
[2022-10-25 21:11] VITALS: BP 121/50
[2022-10-25] MEDS: ATORVASTATIN 20 MG TAB PO SCH (21:18)
[2022-10-25] MEDS: LEVEMIR (INSULIN DETEMIR) 1 UNITS/0.01ML SC SCH (21:19)
[2022-10-26] MEDS: **hydrALAZINE** 10 MG TAB PO SCH ×3 (05:20→21:54)
[2022-10-26 06:00] VITALS: BP 140/60
[2022-10-26] MEDS: SUCRALFATE SUSP 1GM/10ML UD PO SCH ×4 (07:30→21:00)
[2022-10-26] MEDS: LACTOBACILLUS ACIDOPHILUS CAP (BACID) PO SCH ×2 (08:14→17:59)
[2022-10-26] MEDS: INSULIN LISPRO (NovoLOG) PER UNIT SC SCH ×4 (08:15→21:54)
[2022-10-26] MEDS: SUCROFERRIC OXYHYDROXIDE 500MG CHEW TAB (VELPHORO) PO SCH ×3 (08:16→17:59)
[2022-10-26 09:00] VITALS: BP 115/44
[2022-10-26] MEDS: MIRALAX *UNIT DOSE* 17GM PACKET PO SCH (09:00)
[2022-10-26] MEDS: PANTOPRAZOLE 40MG TAB (PROTONIX) PO SCH ×2 (09:39→21:53)
[2022-10-26] MEDS: SENNA 8.6 MG TAB (SENOKOT) PO SCH (09:39)
[2022-10-26] MEDS: TAMSULOSIN 0.4 MG CAP PO SCH (09:40)
[2022-10-26] MEDS: APIXABAN 5 MG TAB (ELIQUIS) PO SCH ×2 (09:40→21:53)
[2022-10-26] MEDS: ASPIRIN 81MG ENTERIC TABLET PO SCH (09:40)
[2022-10-26] MEDS: VANICREAM MOISTURIZING SKIN CREAM 113GM TUBE TOP SCH ×3 (09:44→21:55)
[2022-10-26] MEDS: NYSTATIN 100,000 UNITS/GM TOPICAL PWD 15GM TOP SCH ×2 (09:44→21:55)
[2022-10-26] MEDS: CARVedilol 6.25 MG TAB PO SCH ×2 (10:07→21:53)
[2022-10-26] MEDS: DIGOXIN 0.125 MG TAB PO SCH (10:10)
[2022-10-26 21:50] VITALS: BP 148/64
[2022-10-26] MEDS: LEVEMIR (INSULIN DETEMIR) 1 UNITS/0.01ML SC SCH (21:54)
[2022-10-26] MEDS: ATORVASTATIN 20 MG TAB PO SCH (21:54)
[2022-10-27] MEDS: **hydrALAZINE** 10 MG TAB PO SCH ×3 (05:59→21:17)
[2022-10-27 06:00] VITALS: BP 123/58
[2022-10-27] MEDS: SUCRALFATE SUSP 1GM/10ML UD PO SCH ×4 (07:30→21:00)
[2022-10-27] MEDS: INSULIN LISPRO (NovoLOG) PER UNIT SC SCH ×4 (08:14→21:16)
[2022-10-27] MEDS: MIRALAX *UNIT DOSE* 17GM PACKET PO SCH (08:14)
[2022-10-27] MEDS: SENNA 8.6 MG TAB (SENOKOT) PO SCH (08:15)
[2022-10-27] MEDS: SUCROFERRIC OXYHYDROXIDE 500MG CHEW TAB (VELPHORO) PO SCH ×3 (08:15→17:50)
[2022-10-27] MEDS: TAMSULOSIN 0.4 MG CAP PO SCH (08:16)
[2022-10-27] MEDS: DIGOXIN 0.125 MG TAB PO SCH (08:16)
[2022-10-27] MEDS: APIXABAN 5 MG TAB (ELIQUIS) PO SCH ×2 (08:17→21:14)
[2022-10-27] MEDS: ASPIRIN 81MG ENTERIC TABLET PO SCH (08:17)
[2022-10-27] MEDS: LACTOBACILLUS ACIDOPHILUS CAP (BACID) PO SCH ×2 (08:17→17:50)
[2022-10-27] MEDS: CARVedilol 6.25 MG TAB PO SCH ×2 (08:17→21:14)
[2022-10-27] MEDS: PANTOPRAZOLE 40MG TAB (PROTONIX) PO SCH ×2 (08:17→21:14)
[2022-10-27] MEDS: NYSTATIN 100,000 UNITS/GM TOPICAL PWD 15GM TOP SCH ×2 (08:18→21:17)
[2022-10-27] MEDS: MUPIROCIN 2% OINT 22 GM TUBE TOP SCH (08:19)
[2022-10-27] MEDS: VANICREAM MOISTURIZING SKIN CREAM 113GM TUBE TOP SCH ×2 (08:20→21:17)
[2022-10-27] MEDS: DARBEPOETIN 200MCG/0.4ML *NON-DIALYSIS* SYRINGE SC SCH (10:05)
[2022-10-27 19:26] LABS: HEMATOCRIT 38.9 % (42.0-52.0); HEMOGLOBIN 12.1 g/dl (13.5-17.5)
[2022-10-27] MEDS: ATORVASTATIN 20 MG TAB PO SCH (21:14)
[2022-10-27] MEDS: LEVEMIR (INSULIN DETEMIR) 1 UNITS/0.01ML SC SCH (21:16)
[2022-10-28] MEDS ORDERED: LIDOCAINE 1% SDV 5ML VIAL SC PRN (05:20)
[2022-10-28] MEDS ORDERED: HEPARIN 1,000UNITS/ML 10ML VIAL (FOR RADIOLOGY & DIALYSIS ONLY) XX SCH (05:20)
[2022-10-28] MEDS ORDERED: HEPARIN 1,000UNITS/ML 10ML VIAL (FOR RADIOLOGY & DIALYSIS ONLY) IV PRN (05:20)
[2022-10-28] MEDS ORDERED: SODIUM CHLORIDE 0.9% 1000ML IV PRN (05:20)
[2022-10-28 06:00] VITALS: BP 129/85
[2022-10-28] MEDS: **hydrALAZINE** 10 MG TAB PO SCH ×3 (06:00→21:25)
[2022-10-28] MEDS: APIXABAN 5 MG TAB (ELIQUIS) PO SCH ×3 (06:06→21:29)
[2022-10-28] MEDS: LACTOBACILLUS ACIDOPHILUS CAP (BACID) PO SCH ×2 (06:06→18:11)
[2022-10-28] MEDS: ASPIRIN 81MG ENTERIC TABLET PO SCH (06:06)
[2022-10-28] MEDS: PANTOPRAZOLE 40MG TAB (PROTONIX) PO SCH ×2 (06:06→21:29)
[2022-10-28] MEDS: TAMSULOSIN 0.4 MG CAP PO SCH (06:06)
[2022-10-28] MEDS: SENNA 8.6 MG TAB (SENOKOT) PO SCH (06:06)
[2022-10-28] MEDS: DIGOXIN 0.125 MG TAB PO SCH (06:07)
[2022-10-28] MEDS: SUCRALFATE SUSP 1GM/10ML UD PO SCH ×4 (06:07→21:00)
[2022-10-28] MEDS: CARVedilol 6.25 MG TAB PO SCH ×2 (06:07→21:29)
[2022-10-28] MEDS: MIRALAX *UNIT DOSE* 17GM PACKET PO SCH (06:08)
[2022-10-28] MEDS: NYSTATIN 100,000 UNITS/GM TOPICAL PWD 15GM TOP SCH ×2 (06:08→21:30)
[2022-10-28] MEDS: SUCROFERRIC OXYHYDROXIDE 500MG CHEW TAB (VELPHORO) PO SCH ×3 (06:08→18:00)
[2022-10-28] MEDS: VANICREAM MOISTURIZING SKIN CREAM 113GM TUBE TOP SCH ×2 (06:09→21:30)
[2022-10-28 06:29] LABS: ALBUMIN 2.7 G/DL (3.2-5.2); CALCIUM LEVEL 8.4 MG/DL (8.3-10.6); CREATININE FOR GFR 6.88 MG/DL (0.70-1.30); GLOMERULAR FILTRATION RATE 8.4 (>42); PHOSPHORUS LEVEL 2.3 MG/DL (2.4-5.1)
[2022-10-28] MEDS: INSULIN LISPRO (NovoLOG) PER UNIT SC SCH ×4 (07:30→21:00)
[2022-10-28] MEDS: CEFDINIR 300 MG CAP (OMNICEF) PO SCH (18:53)
[2022-10-28] MEDS: LEVEMIR (INSULIN DETEMIR) 1 UNITS/0.01ML SC SCH (21:29)
[2022-10-28] MEDS: ATORVASTATIN 20 MG TAB PO SCH (21:29)
[2022-10-29 05:52] VITALS: BP 162/94
[2022-10-29] MEDS: **hydrALAZINE** 10 MG TAB PO SCH ×3 (05:59→22:00)
[2022-10-29 06:25] LABS: HEMATOCRIT 40.1 % (42.0-52.0); HEMOGLOBIN 12.2 g/dl (13.5-17.5); MEAN CORPUSCULAR HEMOGLOBIN 28.5 pg (27.0-33.0); MEAN CORPUSCULAR HGB CONC 30.4 g/dl (32.0-36.5); MEAN CORPUSCULAR VOLUME 93.7 fl (80.0-96.0); PLATELET COUNT, AUTOMATED 191 10^3/uL (150-450); RED BLOOD COUNT 4.28 10^6/uL (4.30-6.10); WHITE BLOOD COUNT 9.3 10^3/uL (4.0-10.0)
[2022-10-29 07:27] LABS: CALCIUM LEVEL 8.7 MG/DL (8.3-10.6); CREATININE FOR GFR 5.29 MG/DL (0.70-1.30); GLOMERULAR FILTRATION RATE 11.4 (>42); MAGNESIUM LEVEL 2.1 MG/DL (1.8-2.4); PHOSPHORUS LEVEL 2.3 MG/DL (2.4-5.1); POTASSIUM SERUM 4.2 MMOL/L (3.5-5.1)
[2022-10-29] MEDS: SUCRALFATE SUSP 1GM/10ML UD PO SCH ×4 (07:30→21:00)
[2022-10-29] MEDS: INSULIN LISPRO (NovoLOG) PER UNIT SC SCH ×4 (07:30→22:50)
[2022-10-29] MEDS: SUCROFERRIC OXYHYDROXIDE 500MG CHEW TAB (VELPHORO) PO SCH ×3 (08:00→17:28)
[2022-10-29 09:02] VITALS: BP 142/67
[2022-10-29] MEDS: ASPIRIN 81MG ENTERIC TABLET PO SCH (09:12)
[2022-10-29] MEDS: TAMSULOSIN 0.4 MG CAP PO SCH (09:12)
[2022-10-29] MEDS: PANTOPRAZOLE 40MG TAB (PROTONIX) PO SCH ×2 (09:12→22:40)
[2022-10-29] MEDS: APIXABAN 5 MG TAB (ELIQUIS) PO SCH ×2 (09:13→22:38)
[2022-10-29] MEDS: MIRALAX *UNIT DOSE* 17GM PACKET PO SCH (09:13)
[2022-10-29] MEDS: SENNA 8.6 MG TAB (SENOKOT) PO SCH (09:13)
[2022-10-29] MEDS: LACTOBACILLUS ACIDOPHILUS CAP (BACID) PO SCH ×2 (09:13→17:28)
[2022-10-29] MEDS: DIGOXIN 0.125 MG TAB PO SCH (09:13)
[2022-10-29] MEDS: CARVedilol 6.25 MG TAB PO SCH ×2 (09:13→22:43)
[2022-10-29] MEDS: VANICREAM MOISTURIZING SKIN CREAM 113GM TUBE TOP SCH ×2 (09:15→22:49)
[2022-10-29] MEDS: MUPIROCIN 2% OINT 22 GM TUBE TOP SCH (09:15)
[2022-10-29] MEDS: NYSTATIN 100,000 UNITS/GM TOPICAL PWD 15GM TOP SCH ×2 (09:15→22:48)
[2022-10-29 15:19] VITALS: BP 164/74
[2022-10-29] MEDS: CEFDINIR 300 MG CAP (OMNICEF) PO SCH (17:27)
[2022-10-29] MEDS: ATORVASTATIN 20 MG TAB PO SCH (22:37)
[2022-10-29] MEDS: LEVEMIR (INSULIN DETEMIR) 1 UNITS/0.01ML SC SCH (22:49)
[2022-10-30 06:00] VITALS: BP 172/78
[2022-10-30] MEDS: **hydrALAZINE** 10 MG TAB PO SCH ×3 (06:00→22:56)
[2022-10-30 06:30] VITALS: BP 148/66
[2022-10-30] MEDS: LACTOBACILLUS ACIDOPHILUS CAP (BACID) PO SCH ×2 (06:33→18:24)
[2022-10-30] MEDS: TAMSULOSIN 0.4 MG CAP PO SCH (06:33)
[2022-10-30] MEDS: ASPIRIN 81MG ENTERIC TABLET PO SCH (06:35)
[2022-10-30] MEDS: PANTOPRAZOLE 40MG TAB (PROTONIX) PO SCH ×2 (06:35→20:29)
[2022-10-30] MEDS: SENNA 8.6 MG TAB (SENOKOT) PO SCH (06:35)
[2022-10-30] MEDS: APIXABAN 5 MG TAB (ELIQUIS) PO SCH ×2 (06:36→20:28)
[2022-10-30] MEDS: CARVedilol 6.25 MG TAB PO SCH ×3 (06:37→20:29)
[2022-10-30] MEDS: SUCROFERRIC OXYHYDROXIDE 500MG CHEW TAB (VELPHORO) PO SCH ×3 (06:37→18:24)
[2022-10-30] MEDS: SUCRALFATE SUSP 1GM/10ML UD PO SCH ×4 (07:08→20:21)
[2022-10-30] MEDS: MIRALAX *UNIT DOSE* 17GM PACKET PO SCH (07:09)
[2022-10-30] MEDS ORDERED: SODIUM CHLORIDE 0.9% 1000ML IV PRN (07:25)
[2022-10-30] MEDS ORDERED: LIDOCAINE 1% SDV 5ML VIAL SC PRN (07:25)
[2022-10-30] MEDS ORDERED: HEPARIN 1,000UNITS/ML 10ML VIAL (FOR RADIOLOGY & DIALYSIS ONLY) XX SCH (07:25)
[2022-10-30] MEDS ORDERED: HEPARIN 1,000UNITS/ML 10ML VIAL (FOR RADIOLOGY & DIALYSIS ONLY) IV PRN (07:25)
[2022-10-30] MEDS: INSULIN LISPRO (NovoLOG) PER UNIT SC SCH ×4 (07:30→20:27)
[2022-10-30] MEDS: DIGOXIN 0.125 MG TAB PO SCH (07:36)
[2022-10-30] MEDS: VANICREAM MOISTURIZING SKIN CREAM 113GM TUBE TOP SCH ×2 (09:32→20:30)
[2022-10-30] MEDS: NYSTATIN 100,000 UNITS/GM TOPICAL PWD 15GM TOP SCH ×2 (09:32→20:30)
[2022-10-30] MEDS: CEFDINIR 300 MG CAP (OMNICEF) PO SCH (18:24)
[2022-10-30] MEDS: LEVEMIR (INSULIN DETEMIR) 1 UNITS/0.01ML SC SCH (20:28)
[2022-10-30] MEDS: ATORVASTATIN 20 MG TAB PO SCH (20:28)
[2022-10-31 05:44] VITALS: BP 163/72
[2022-10-31] MEDS: **hydrALAZINE** 10 MG TAB PO SCH ×3 (06:00→22:26)
[2022-10-31 06:37] VITALS: BP 154/66
[2022-10-31] MEDS: SUCRALFATE SUSP 1GM/10ML UD PO SCH ×4 (07:30→22:27)
[2022-10-31] MEDS: SUCROFERRIC OXYHYDROXIDE 500MG CHEW TAB (VELPHORO) PO SCH ×3 (08:04→17:43)
[2022-10-31] MEDS: LACTOBACILLUS ACIDOPHILUS CAP (BACID) PO SCH ×2 (08:06→17:43)
[2022-10-31] MEDS: TAMSULOSIN 0.4 MG CAP PO SCH (08:06)
[2022-10-31] MEDS: INSULIN LISPRO (NovoLOG) PER UNIT SC SCH ×4 (08:06→21:00)
[2022-10-31] MEDS: DIGOXIN 0.125 MG TAB PO SCH (08:07)
[2022-10-31] MEDS: APIXABAN 5 MG TAB (ELIQUIS) PO SCH ×2 (08:07→22:25)
[2022-10-31] MEDS: PANTOPRAZOLE 40MG TAB (PROTONIX) PO SCH ×2 (08:07→22:25)
[2022-10-31] MEDS: SENNA 8.6 MG TAB (SENOKOT) PO SCH (08:07)
[2022-10-31] MEDS: ASPIRIN 81MG ENTERIC TABLET PO SCH (08:08)
[2022-10-31] MEDS: MIRALAX *UNIT DOSE* 17GM PACKET PO SCH (08:09)
[2022-10-31] MEDS: CARVedilol 6.25 MG TAB PO SCH ×2 (08:09→22:26)
[2022-10-31] MEDS: MUPIROCIN 2% OINT 22 GM TUBE TOP SCH (08:10)
[2022-10-31] MEDS: NYSTATIN 100,000 UNITS/GM TOPICAL PWD 15GM TOP SCH ×2 (08:10→22:27)
[2022-10-31] MEDS: VANICREAM MOISTURIZING SKIN CREAM 113GM TUBE TOP SCH ×2 (08:11→22:27)
[2022-10-31] MEDS: PERCOCET 5MG/325MG TAB PO PRN (14:11)
[2022-10-31] MEDS: CEFDINIR 300 MG CAP (OMNICEF) PO SCH (17:43)
[2022-10-31] MEDS: ATORVASTATIN 20 MG TAB PO SCH (22:25)
[2022-10-31] MEDS: LEVEMIR (INSULIN DETEMIR) 1 UNITS/0.01ML SC SCH (22:27)
[2022-10-31 23:40] VITALS: BP 158/64
[2022-11-01 05:35] VITALS: BP 160/62
[2022-11-01] MEDS: SUCRALFATE SUSP 1GM/10ML UD PO SCH ×4 (06:19→21:51)
[2022-11-01] MEDS: MIRALAX *UNIT DOSE* 17GM PACKET PO SCH (06:19)
[2022-11-01 06:36] VITALS: BP 164/64
[2022-11-01] MEDS: SUCROFERRIC OXYHYDROXIDE 500MG CHEW TAB (VELPHORO) PO SCH ×3 (06:37→18:14)
[2022-11-01] MEDS: CARVedilol 6.25 MG TAB PO SCH ×2 (06:38→21:53)
[2022-11-01] MEDS: DIGOXIN 0.125 MG TAB PO SCH (06:38)
[2022-11-01] MEDS: TAMSULOSIN 0.4 MG CAP PO SCH (06:38)
[2022-11-01] MEDS: ASPIRIN 81MG ENTERIC TABLET PO SCH (06:39)
[2022-11-01] MEDS: SENNA 8.6 MG TAB (SENOKOT) PO SCH (06:39)
[2022-11-01] MEDS: **hydrALAZINE** 10 MG TAB PO SCH ×3 (06:39→21:56)
[2022-11-01] MEDS: LACTOBACILLUS ACIDOPHILUS CAP (BACID) PO SCH ×2 (06:39→18:14)
[2022-11-01] MEDS: PANTOPRAZOLE 40MG TAB (PROTONIX) PO SCH ×2 (06:39→21:51)
[2022-11-01] MEDS: APIXABAN 5 MG TAB (ELIQUIS) PO SCH ×2 (06:40→21:51)
[2022-11-01] MEDS: NYSTATIN 100,000 UNITS/GM TOPICAL PWD 15GM TOP SCH ×2 (06:44→21:54)
[2022-11-01] MEDS: VANICREAM MOISTURIZING SKIN CREAM 113GM TUBE TOP SCH ×2 (06:44→21:54)
[2022-11-01] MEDS ORDERED: HEPARIN 1,000UNITS/ML 10ML VIAL (FOR RADIOLOGY & DIALYSIS ONLY) XX SCH (07:15)
[2022-11-01] MEDS ORDERED: SODIUM CHLORIDE 0.9% 1000ML IV PRN (07:15)
[2022-11-01] MEDS ORDERED: HEPARIN 1,000UNITS/ML 10ML VIAL (FOR RADIOLOGY & DIALYSIS ONLY) IV PRN (07:15)
[2022-11-01] MEDS ORDERED: LIDOCAINE 1% SDV 5ML VIAL SC PRN (07:15)
[2022-11-01] MEDS: INSULIN LISPRO (NovoLOG) PER UNIT SC SCH ×4 (07:56→21:00)
[2022-11-01] MEDS: amLODIPine 5 MG TAB PO SCH (18:14)
[2022-11-01 21:04] VITALS: BP 153/67
[2022-11-01] MEDS: ATORVASTATIN 20 MG TAB PO SCH (21:51)
[2022-11-01] MEDS: LEVEMIR (INSULIN DETEMIR) 1 UNITS/0.01ML SC SCH (21:52)
[2022-11-01] MEDS: PERCOCET 5MG/325MG TAB PO PRN (21:54)
[2022-11-02 06:00] VITALS: BP 136/65
[2022-11-02] MEDS: **hydrALAZINE** 10 MG TAB PO SCH ×3 (06:00→21:42)
[2022-11-02] MEDS: SUCRALFATE SUSP 1GM/10ML UD PO SCH ×4 (07:30→21:00)
[2022-11-02] MEDS: INSULIN LISPRO (NovoLOG) PER UNIT SC SCH ×4 (07:30→21:41)
[2022-11-02] MEDS: SUCROFERRIC OXYHYDROXIDE 500MG CHEW TAB (VELPHORO) PO SCH ×3 (10:01→18:54)
[2022-11-02] MEDS: APIXABAN 5 MG TAB (ELIQUIS) PO SCH ×2 (10:03→21:36)
[2022-11-02] MEDS: VANICREAM MOISTURIZING SKIN CREAM 113GM TUBE TOP SCH ×2 (10:03→21:42)
[2022-11-02] MEDS: NYSTATIN 100,000 UNITS/GM TOPICAL PWD 15GM TOP SCH ×2 (10:03→21:42)
[2022-11-02] MEDS: SENNA 8.6 MG TAB (SENOKOT) PO SCH (10:03)
[2022-11-02] MEDS: LACTOBACILLUS ACIDOPHILUS CAP (BACID) PO SCH ×2 (10:03→18:54)
[2022-11-02] MEDS: PANTOPRAZOLE 40MG TAB (PROTONIX) PO SCH ×2 (10:03→21:36)
[2022-11-02] MEDS: TAMSULOSIN 0.4 MG CAP PO SCH (10:04)
[2022-11-02] MEDS: CARVedilol 6.25 MG TAB PO SCH ×2 (10:04→21:40)
[2022-11-02] MEDS: DIGOXIN 0.125 MG TAB PO SCH (10:04)
[2022-11-02] MEDS: amLODIPine 5 MG TAB PO SCH (10:04)
[2022-11-02] MEDS: ASPIRIN 81MG ENTERIC TABLET PO SCH (10:05)
[2022-11-02] MEDS: MIRALAX *UNIT DOSE* 17GM PACKET PO SCH (10:05)
[2022-11-02] MEDS: MUPIROCIN 2% OINT 22 GM TUBE TOP SCH (10:05)
[2022-11-02 16:09] LABS: BASO # 0.1 10^3/uL (0.0-0.2); BASO % 1.1 % (0.0-1.0); EOS # 0.2 10^3/uL (0.0-0.5); HEMATOCRIT 40.1 % (42.0-52.0); HEMOGLOBIN 12.1 g/dl (13.5-17.5); LYMPH # 1.4 10^3/uL (1.5-5.0); LYMPH % 14.9 % (24.0-44.0); MEAN CORPUSCULAR HEMOGLOBIN 28.4 pg (27.0-33.0); MEAN CORPUSCULAR HGB CONC 30.2 g/dl (32.0-36.5); MEAN CORPUSCULAR VOLUME 94.1 fl (80.0-96.0); MONO # 0.7 10^3/uL (0.0-0.8); MONO % 7.7 % (2.0-8.0); NEUTROPHILS % 73.8 % (36.0-66.0); PLATELET COUNT, AUTOMATED 208 10^3/uL (150-450); RED BLOOD COUNT 4.26 10^6/uL (4.30-6.10); WHITE BLOOD COUNT 9.5 10^3/uL (4.0-10.0)
[2022-11-02] MEDS: ATORVASTATIN 20 MG TAB PO SCH (21:36)
[2022-11-02] MEDS: LEVEMIR (INSULIN DETEMIR) 1 UNITS/0.01ML SC SCH (21:41)
[2022-11-03 06:00] VITALS: BP 126/72
[2022-11-03] MEDS: **hydrALAZINE** 10 MG TAB PO SCH ×3 (06:00→21:04)
[2022-11-03] MEDS: SENNA 8.6 MG TAB (SENOKOT) PO SCH (08:34)
[2022-11-03] MEDS: SUCROFERRIC OXYHYDROXIDE 500MG CHEW TAB (VELPHORO) PO SCH ×3 (08:34→18:47)
[2022-11-03] MEDS: ASPIRIN 81MG ENTERIC TABLET PO SCH (08:34)
[2022-11-03] MEDS: TAMSULOSIN 0.4 MG CAP PO SCH (08:34)
[2022-11-03] MEDS: PANTOPRAZOLE 40MG TAB (PROTONIX) PO SCH ×2 (08:34→21:08)
[2022-11-03] MEDS: CARVedilol 6.25 MG TAB PO SCH ×2 (08:35→21:07)
[2022-11-03] MEDS: amLODIPine 5 MG TAB PO SCH (08:35)
[2022-11-03] MEDS: DIGOXIN 0.125 MG TAB PO SCH (08:35)
[2022-11-03] MEDS: LACTOBACILLUS ACIDOPHILUS CAP (BACID) PO SCH ×2 (08:35→18:47)
[2022-11-03] MEDS: APIXABAN 5 MG TAB (ELIQUIS) PO SCH ×2 (08:35→21:08)
[2022-11-03] MEDS: INSULIN LISPRO (NovoLOG) PER UNIT SC SCH ×4 (08:36→21:00)
[2022-11-03] MEDS: MIRALAX *UNIT DOSE* 17GM PACKET PO SCH (08:36)
[2022-11-03] MEDS: SUCRALFATE SUSP 1GM/10ML UD PO SCH ×5 (08:36→21:05)
[2022-11-03] MEDS: NYSTATIN 100,000 UNITS/GM TOPICAL PWD 15GM TOP SCH ×2 (08:36→21:08)
[2022-11-03] MEDS: VANICREAM MOISTURIZING SKIN CREAM 113GM TUBE TOP SCH ×2 (08:37→21:08)
[2022-11-03] MEDS: ATORVASTATIN 20 MG TAB PO SCH (21:08)
[2022-11-03] MEDS: LEVEMIR (INSULIN DETEMIR) 1 UNITS/0.01ML SC SCH (21:17)
[2022-11-04 06:00] VITALS: BP 132/68
[2022-11-04] MEDS: **hydrALAZINE** 10 MG TAB PO SCH ×4 (06:00→22:09)
[2022-11-04] MEDS ORDERED: LIDOCAINE 1% SDV 5ML VIAL SC PRN (06:00)
[2022-11-04] MEDS ORDERED: SODIUM CHLORIDE 0.9% 1000ML IV PRN (06:00)
[2022-11-04] MEDS: MIRALAX *UNIT DOSE* 17GM PACKET PO SCH (07:26)
[2022-11-04] MEDS: LACTOBACILLUS ACIDOPHILUS CAP (BACID) PO SCH ×2 (07:26→18:17)
[2022-11-04] MEDS: SUCRALFATE SUSP 1GM/10ML UD PO SCH ×4 (07:26→21:00)
[2022-11-04] MEDS: DIGOXIN 0.125 MG TAB PO SCH (07:27)
[2022-11-04] MEDS: PANTOPRAZOLE 40MG TAB (PROTONIX) PO SCH ×2 (07:27→22:08)
[2022-11-04] MEDS: ASPIRIN 81MG ENTERIC TABLET PO SCH (07:27)
[2022-11-04] MEDS: SENNA 8.6 MG TAB (SENOKOT) PO SCH (07:27)
[2022-11-04] MEDS: amLODIPine 5 MG TAB PO SCH (07:28)
[2022-11-04] MEDS: TAMSULOSIN 0.4 MG CAP PO SCH (07:28)
[2022-11-04] MEDS: APIXABAN 5 MG TAB (ELIQUIS) PO SCH ×2 (07:28→22:08)
[2022-11-04] MEDS: CARVedilol 6.25 MG TAB PO SCH ×2 (07:28→22:07)
[2022-11-04] MEDS: SUCROFERRIC OXYHYDROXIDE 500MG CHEW TAB (VELPHORO) PO SCH ×4 (07:29→18:17)
[2022-11-04] MEDS: INSULIN LISPRO (NovoLOG) PER UNIT SC SCH ×4 (07:29→21:00)
[2022-11-04] MEDS: MUPIROCIN 2% OINT 22 GM TUBE TOP SCH (08:20)
[2022-11-04] MEDS: NYSTATIN 100,000 UNITS/GM TOPICAL PWD 15GM TOP SCH ×2 (08:20→22:09)
[2022-11-04] MEDS: VANICREAM MOISTURIZING SKIN CREAM 113GM TUBE TOP SCH ×2 (08:20→22:10)
[2022-11-04] MEDS ORDERED: DARBEPOETIN 100MCG/0.5ML *DIALYSIS* SYRINGE IV SCH (09:00)
[2022-11-04] MEDS: ATORVASTATIN 20 MG TAB PO SCH (22:08)
[2022-11-04] MEDS: LEVEMIR (INSULIN DETEMIR) 1 UNITS/0.01ML SC SCH (22:08)
[2022-11-05 05:50] VITALS: BP 120/52
[2022-11-05] MEDS: **hydrALAZINE** 10 MG TAB PO SCH ×3 (05:58→21:54)
[2022-11-05] MEDS: SUCRALFATE SUSP 1GM/10ML UD PO SCH ×4 (07:30→20:30)
[2022-11-05] MEDS: INSULIN LISPRO (NovoLOG) PER UNIT SC SCH ×4 (07:30→20:32)
[2022-11-05] MEDS: SUCROFERRIC OXYHYDROXIDE 500MG CHEW TAB (VELPHORO) PO SCH ×3 (08:00→17:02)
[2022-11-05] MEDS: ASPIRIN 81MG ENTERIC TABLET PO SCH (08:07)
[2022-11-05] MEDS: TAMSULOSIN 0.4 MG CAP PO SCH (08:07)
[2022-11-05] MEDS: APIXABAN 5 MG TAB (ELIQUIS) PO SCH ×2 (08:07→20:41)
[2022-11-05] MEDS: PANTOPRAZOLE 40MG TAB (PROTONIX) PO SCH ×2 (08:07→20:41)
[2022-11-05] MEDS: CARVedilol 6.25 MG TAB PO SCH ×2 (08:08→20:41)
[2022-11-05] MEDS: LACTOBACILLUS ACIDOPHILUS CAP (BACID) PO SCH ×2 (08:08→17:02)
[2022-11-05] MEDS: amLODIPine 5 MG TAB PO SCH (08:09)
[2022-11-05] MEDS: DIGOXIN 0.125 MG TAB PO SCH (08:09)
[2022-11-05] MEDS: NYSTATIN 100,000 UNITS/GM TOPICAL PWD 15GM TOP SCH ×2 (08:10→20:43)
[2022-11-05] MEDS: VANICREAM MOISTURIZING SKIN CREAM 113GM TUBE TOP SCH ×2 (08:10→20:42)
[2022-11-05] MEDS: MIRALAX *UNIT DOSE* 17GM PACKET PO SCH (08:10)
[2022-11-05] MEDS: SENNA 8.6 MG TAB (SENOKOT) PO SCH (08:11)
[2022-11-05] MEDS: ACETAMINOPHEN TAB 650MG DOSE (2X325MG) PO PRN (09:26)
[2022-11-05] MEDS: ATORVASTATIN 20 MG TAB PO SCH (20:41)
[2022-11-05] MEDS: LEVEMIR (INSULIN DETEMIR) 1 UNITS/0.01ML SC SCH (20:42)
[2022-11-05] MEDS ORDERED: LevoFLOXacin 250 MG TABLET PO SCH (22:00)
[2022-11-06 05:43] VITALS: BP 156/68
[2022-11-06 06:00] VITALS: BP 156/68
[2022-11-06] MEDS: TAMSULOSIN 0.4 MG CAP PO SCH (06:00)
[2022-11-06] MEDS: amLODIPine 5 MG TAB PO SCH (06:00)
[2022-11-06] MEDS ORDERED: SODIUM CHLORIDE 0.9% 1000ML IV PRN (06:00)
[2022-11-06] MEDS: **hydrALAZINE** 10 MG TAB PO SCH ×3 (06:00→20:43)
[2022-11-06] MEDS ORDERED: LIDOCAINE 1% SDV 5ML VIAL SC PRN (06:00)
[2022-11-06] MEDS: SENNA 8.6 MG TAB (SENOKOT) PO SCH (06:00)
[2022-11-06] MEDS: ASPIRIN 81MG ENTERIC TABLET PO SCH (06:01)
[2022-11-06] MEDS: APIXABAN 5 MG TAB (ELIQUIS) PO SCH ×2 (06:01→20:41)
[2022-11-06] MEDS: PANTOPRAZOLE 40MG TAB (PROTONIX) PO SCH ×2 (06:01→20:41)
[2022-11-06] MEDS: CARVedilol 6.25 MG TAB PO SCH ×2 (06:01→20:42)
[2022-11-06] MEDS: DIGOXIN 0.125 MG TAB PO SCH (06:07)
[2022-11-06] MEDS: MIRALAX *UNIT DOSE* 17GM PACKET PO SCH (06:07)
[2022-11-06] MEDS: INSULIN LISPRO (NovoLOG) PER UNIT SC SCH ×4 (06:50→20:34)
[2022-11-06] MEDS: SUCRALFATE SUSP 1GM/10ML UD PO SCH ×4 (06:51→20:34)
[2022-11-06] MEDS: LACTOBACILLUS ACIDOPHILUS CAP (BACID) PO SCH ×2 (06:54→17:30)
[2022-11-06] MEDS: SUCROFERRIC OXYHYDROXIDE 500MG CHEW TAB (VELPHORO) PO SCH ×3 (06:55→17:30)
[2022-11-06 07:59] LABS: BASO # 0.1 10^3/uL (0.0-0.2); BASO % 0.9 % (0.0-1.0); EOS # 0.2 10^3/uL (0.0-0.5); EOS % 1.5 % (0.0-3.0); HEMATOCRIT 40.8 % (42.0-52.0); HEMOGLOBIN 12.5 g/dl (13.5-17.5); LYMPH # 1.5 10^3/uL (1.5-5.0); LYMPH % 14.6 % (24.0-44.0); MEAN CORPUSCULAR HEMOGLOBIN 27.9 pg (27.0-33.0); MEAN CORPUSCULAR HGB CONC 30.6 g/dl (32.0-36.5); MEAN CORPUSCULAR VOLUME 91.1 fl (80.0-96.0); MONO # 0.7 10^3/uL (0.0-0.8); MONO % 6.6 % (2.0-8.0); NEUTROPHILS # 7.7 10^3/uL (1.5-8.5); NEUTROPHILS % 76.1 % (36.0-66.0); PLATELET COUNT, AUTOMATED 193 10^3/uL (150-450); RED BLOOD COUNT 4.48 10^6/uL (4.30-6.10); WHITE BLOOD COUNT 10.1 10^3/uL (4.0-10.0)
[2022-11-06 08:28] LABS: ALBUMIN 2.7 G/DL (3.2-5.2); BILIRUBIN,DIRECT 0.2 MG/DL (<0.4); BILIRUBIN,TOTAL 0.4 MG/DL (0.3-1.2); CALCIUM LEVEL 8.3 MG/DL (8.3-10.6); CREATININE FOR GFR 5.84 MG/DL (0.70-1.30); GLOMERULAR FILTRATION RATE 10.2 (>42); MAGNESIUM LEVEL 1.9 MG/DL (1.8-2.4); POTASSIUM SERUM 4.2 MMOL/L (3.5-5.1); TOTAL PROTEIN 5.6 G/DL (5.7-8.2)
[2022-11-06] MEDS: MUPIROCIN 2% OINT 22 GM TUBE TOP SCH (09:00)
[2022-11-06] MEDS ORDERED: PIPERACILLIN/TAZOBACTAM SOD 3.375 GM in D5W MINI-BAG PLUS 50 ML IV SCH (12:25)
[2022-11-06] MEDS: VANICREAM MOISTURIZING SKIN CREAM 113GM TUBE TOP SCH ×2 (14:37→20:42)
[2022-11-06] MEDS: NYSTATIN 100,000 UNITS/GM TOPICAL PWD 15GM TOP SCH ×2 (14:37→20:43)
[2022-11-06] MEDS ORDERED: LIDOCAINE 1% MDV 20ML VIAL As Ordered ONE (15:42)
[2022-11-06] MEDS: PIPERACILLIN/TAZOBACTAM SOD 4.5 GM in D5W MINI-BAG PLUS 50 ML IV SCH (17:30)
[2022-11-06] MEDS: PERCOCET 5MG/325MG TAB PO PRN (17:31)
[2022-11-06] MEDS: SODIUM CHLORIDE 0.9% INJ 10 ML SYR IV SCH (18:48)
[2022-11-06] MEDS: LEVEMIR (INSULIN DETEMIR) 1 UNITS/0.01ML SC SCH (20:41)
[2022-11-06] MEDS: ATORVASTATIN 20 MG TAB PO SCH (20:41)
[2022-11-07 04:57] VITALS: BP 140/62
[2022-11-07] MEDS: **hydrALAZINE** 10 MG TAB PO SCH ×3 (06:00→21:29)
[2022-11-07] MEDS: SODIUM CHLORIDE 0.9% INJ 10 ML SYR IV SCH ×2 (06:15→20:29)
[2022-11-07] MEDS: PIPERACILLIN/TAZOBACTAM SOD 4.5 GM in D5W MINI-BAG PLUS 50 ML IV SCH ×2 (06:16→18:25)
[2022-11-07 06:35] LABS: BASO # 0.1 10^3/uL (0.0-0.2); EOS # 0.1 10^3/uL (0.0-0.5); EOS % 1.6 % (0.0-3.0); HEMATOCRIT 39.6 % (42.0-52.0); HEMOGLOBIN 12.4 g/dl (13.5-17.5); LYMPH % 11.9 % (24.0-44.0); MEAN CORPUSCULAR HEMOGLOBIN 28.3 pg (27.0-33.0); MEAN CORPUSCULAR HGB CONC 31.3 g/dl (32.0-36.5); MEAN CORPUSCULAR VOLUME 90.4 fl (80.0-96.0); MONO # 0.6 10^3/uL (0.0-0.8); MONO % 7.6 % (2.0-8.0); NEUTROPHILS # 6.4 10^3/uL (1.5-8.5); NEUTROPHILS % 77.5 % (36.0-66.0); PLATELET COUNT, AUTOMATED 198 10^3/uL (150-450); RED BLOOD COUNT 4.38 10^6/uL (4.30-6.10); WHITE BLOOD COUNT 8.3 10^3/uL (4.0-10.0)
[2022-11-07 07:00] LABS: C REACTIVE PROTEIN QUANTITATIV 1.7 MG/DL (<1.0); CALCIUM LEVEL 8.3 MG/DL (8.3-10.6); CREATININE FOR GFR 4.09 MG/DL (0.70-1.30); GLOMERULAR FILTRATION RATE 15.3 (>42); MAGNESIUM LEVEL 1.8 MG/DL (1.8-2.4); POTASSIUM SERUM 3.9 MMOL/L (3.5-5.1)
[2022-11-07] MEDS: INSULIN LISPRO (NovoLOG) PER UNIT SC SCH ×4 (07:30→20:27)
[2022-11-07] MEDS: SUCRALFATE SUSP 1GM/10ML UD PO SCH ×4 (07:30→20:04)
[2022-11-07] MEDS: SUCROFERRIC OXYHYDROXIDE 500MG CHEW TAB (VELPHORO) PO SCH ×3 (08:00→18:25)
[2022-11-07] MEDS: MIRALAX *UNIT DOSE* 17GM PACKET PO SCH (09:00)
[2022-11-07] MEDS: SENNA 8.6 MG TAB (SENOKOT) PO SCH (09:57)
[2022-11-07] MEDS: ASPIRIN 81MG ENTERIC TABLET PO SCH (09:57)
[2022-11-07] MEDS: LACTOBACILLUS ACIDOPHILUS CAP (BACID) PO SCH ×2 (09:57→18:25)
[2022-11-07] MEDS: CARVedilol 6.25 MG TAB PO SCH ×2 (09:57→20:32)
[2022-11-07] MEDS: TAMSULOSIN 0.4 MG CAP PO SCH (09:57)
[2022-11-07] MEDS: APIXABAN 5 MG TAB (ELIQUIS) PO SCH ×2 (09:57→20:33)
[2022-11-07] MEDS: DIGOXIN 0.125 MG TAB PO SCH (09:58)
[2022-11-07] MEDS: PANTOPRAZOLE 40MG TAB (PROTONIX) PO SCH ×2 (09:58→20:29)
[2022-11-07] MEDS: VANICREAM MOISTURIZING SKIN CREAM 113GM TUBE TOP SCH ×2 (09:58→20:34)
[2022-11-07] MEDS: amLODIPine 5 MG TAB PO SCH (09:58)
[2022-11-07] MEDS: NYSTATIN 100,000 UNITS/GM TOPICAL PWD 15GM TOP SCH ×2 (09:59→20:34)
[2022-11-07] MEDS: PERCOCET 5MG/325MG TAB PO PRN (10:02)
[2022-11-07] MEDS: ATORVASTATIN 20 MG TAB PO SCH (20:29)
[2022-11-07] MEDS: LEVEMIR (INSULIN DETEMIR) 1 UNITS/0.01ML SC SCH (20:42)
[2022-11-08] MEDS: PIPERACILLIN/TAZOBACTAM SOD 4.5 GM in D5W MINI-BAG PLUS 50 ML IV SCH ×2 (05:41→18:26)
[2022-11-08] MEDS: **hydrALAZINE** 10 MG TAB PO SCH ×3 (05:44→20:54)
[2022-11-08] MEDS: SUCRALFATE SUSP 1GM/10ML UD PO SCH ×4 (05:48→20:45)
[2022-11-08] MEDS: MIRALAX *UNIT DOSE* 17GM PACKET PO SCH (05:49)
[2022-11-08] MEDS: amLODIPine 5 MG TAB PO SCH (05:56)
[2022-11-08] MEDS: PANTOPRAZOLE 40MG TAB (PROTONIX) PO SCH ×2 (05:56→20:40)
[2022-11-08] MEDS: ASPIRIN 81MG ENTERIC TABLET PO SCH (05:57)
[2022-11-08] MEDS: APIXABAN 5 MG TAB (ELIQUIS) PO SCH ×2 (05:57→20:40)
[2022-11-08] MEDS: SENNA 8.6 MG TAB (SENOKOT) PO SCH (05:57)
[2022-11-08] MEDS: TAMSULOSIN 0.4 MG CAP PO SCH (05:57)
[2022-11-08] MEDS: DIGOXIN 0.125 MG TAB PO SCH (05:58)
[2022-11-08] MEDS: LACTOBACILLUS ACIDOPHILUS CAP (BACID) PO SCH ×2 (05:58→17:17)
[2022-11-08] MEDS: CARVedilol 6.25 MG TAB PO SCH ×2 (05:58→20:56)
[2022-11-08] MEDS: VANICREAM MOISTURIZING SKIN CREAM 113GM TUBE TOP SCH ×2 (05:59→20:45)
[2022-11-08] MEDS: NYSTATIN 100,000 UNITS/GM TOPICAL PWD 15GM TOP SCH ×2 (05:59→20:44)
[2022-11-08 06:00] VITALS: BP 143/92
[2022-11-08] MEDS ORDERED: LIDOCAINE 1% SDV 5ML VIAL SC PRN (06:00)
[2022-11-08] MEDS ORDERED: HEPARIN 1,000UNITS/ML 10ML VIAL (FOR RADIOLOGY & DIALYSIS ONLY) XX SCH (06:00)
[2022-11-08] MEDS ORDERED: HEPARIN 1,000UNITS/ML 10ML VIAL (FOR RADIOLOGY & DIALYSIS ONLY) IV PRN (06:00)
[2022-11-08] MEDS ORDERED: SODIUM CHLORIDE 0.9% 1000ML IV PRN (06:00)
[2022-11-08] MEDS: SODIUM CHLORIDE 0.9% INJ 10 ML SYR IV SCH ×2 (06:57→20:39)
[2022-11-08 06:59] LABS: BASO # 0.1 10^3/uL (0.0-0.2); EOS # 0.2 10^3/uL (0.0-0.5); EOS % 2.7 % (0.0-3.0); HEMATOCRIT 39.3 % (42.0-52.0); HEMOGLOBIN 12.2 g/dl (13.5-17.5); LYMPH # 1.1 10^3/uL (1.5-5.0); MEAN CORPUSCULAR HEMOGLOBIN 28.1 pg (27.0-33.0); MEAN CORPUSCULAR VOLUME 90.6 fl (80.0-96.0); MONO # 0.7 10^3/uL (0.0-0.8); MONO % 8.2 % (2.0-8.0); NEUTROPHILS # 6.2 10^3/uL (1.5-8.5); NEUTROPHILS % 74.7 % (36.0-66.0); PLATELET COUNT, AUTOMATED 200 10^3/uL (150-450); RED BLOOD COUNT 4.34 10^6/uL (4.30-6.10); WHITE BLOOD COUNT 8.3 10^3/uL (4.0-10.0)
[2022-11-08 07:21] LABS: C REACTIVE PROTEIN QUANTITATIV 1.4 MG/DL (<1.0)
[2022-11-08 07:30] LABS: CALCIUM LEVEL 8.4 MG/DL (8.3-10.6); CREATININE FOR GFR 5.62 MG/DL (0.70-1.30); GLOMERULAR FILTRATION RATE 10.6 (>42); MAGNESIUM LEVEL 1.9 MG/DL (1.8-2.4); POTASSIUM SERUM 3.9 MMOL/L (3.5-5.1)
[2022-11-08] MEDS: SUCROFERRIC OXYHYDROXIDE 500MG CHEW TAB (VELPHORO) PO SCH ×3 (07:43→17:18)
[2022-11-08] MEDS: INSULIN LISPRO (NovoLOG) PER UNIT SC SCH ×4 (07:46→20:12)
[2022-11-08] MEDS: MUPIROCIN 2% OINT 22 GM TUBE TOP SCH (07:47)
[2022-11-08] MEDS: ATORVASTATIN 20 MG TAB PO SCH (20:40)
[2022-11-08] MEDS: LEVEMIR (INSULIN DETEMIR) 1 UNITS/0.01ML SC SCH (20:40)
[2022-11-09] MEDS: PIPERACILLIN/TAZOBACTAM SOD 4.5 GM in D5W MINI-BAG PLUS 50 ML IV SCH ×2 (05:55→18:02)
[2022-11-09] MEDS: **hydrALAZINE** 10 MG TAB PO SCH ×3 (05:57→21:31)
[2022-11-09 06:00] VITALS: BP 147/59
[2022-11-09 06:09] LABS: BASO # 0.1 10^3/uL (0.0-0.2); BASO % 0.9 % (0.0-1.0); EOS # 0.2 10^3/uL (0.0-0.5); EOS % 2.7 % (0.0-3.0); HEMATOCRIT 39.2 % (42.0-52.0); HEMOGLOBIN 11.9 g/dl (13.5-17.5); LYMPH # 1.3 10^3/uL (1.5-5.0); LYMPH % 15.4 % (24.0-44.0); MEAN CORPUSCULAR HEMOGLOBIN 27.6 pg (27.0-33.0); MEAN CORPUSCULAR HGB CONC 30.4 g/dl (32.0-36.5); MONO # 0.8 10^3/uL (0.0-0.8); MONO % 8.8 % (2.0-8.0); NEUTROPHILS # 6.1 10^3/uL (1.5-8.5); NEUTROPHILS % 71.7 % (36.0-66.0); PLATELET COUNT, AUTOMATED 209 10^3/uL (150-450); RED BLOOD COUNT 4.31 10^6/uL (4.30-6.10); WHITE BLOOD COUNT 8.5 10^3/uL (4.0-10.0)
[2022-11-09 06:35] LABS: HEMOGLOBIN A1c 6.2 % (4.0-6.0)
[2022-11-09 06:40] LABS: C REACTIVE PROTEIN QUANTITATIV 1.5 MG/DL (<1.0)
[2022-11-09 06:41] LABS: CALCIUM LEVEL 8.5 MG/DL (8.3-10.6); CREATININE FOR GFR 3.96 MG/DL (0.70-1.30); GLOMERULAR FILTRATION RATE 15.9 (>42); MAGNESIUM LEVEL 1.9 MG/DL (1.8-2.4); POTASSIUM SERUM 3.6 MMOL/L (3.5-5.1)
[2022-11-09] MEDS: SODIUM CHLORIDE 0.9% INJ 10 ML SYR IV SCH ×2 (07:19→18:02)
[2022-11-09] MEDS: SUCRALFATE SUSP 1GM/10ML UD PO SCH ×5 (07:30→21:00)
[2022-11-09] MEDS: INSULIN LISPRO (NovoLOG) PER UNIT SC SCH ×4 (07:30→20:57)
[2022-11-09] MEDS: LACTOBACILLUS ACIDOPHILUS CAP (BACID) PO SCH ×2 (07:53→18:03)
[2022-11-09] MEDS: SUCROFERRIC OXYHYDROXIDE 500MG CHEW TAB (VELPHORO) PO SCH ×3 (07:53→18:02)
[2022-11-09] MEDS: CARVedilol 6.25 MG TAB PO SCH ×2 (07:54→21:28)
[2022-11-09] MEDS: ASPIRIN 81MG ENTERIC TABLET PO SCH (07:54)
[2022-11-09] MEDS: TAMSULOSIN 0.4 MG CAP PO SCH (07:55)
[2022-11-09] MEDS: APIXABAN 5 MG TAB (ELIQUIS) PO SCH ×2 (07:55→21:29)
[2022-11-09] MEDS: PANTOPRAZOLE 40MG TAB (PROTONIX) PO SCH ×2 (07:55→21:24)
[2022-11-09] MEDS: SENNA 8.6 MG TAB (SENOKOT) PO SCH (07:55)
[2022-11-09] MEDS: DIGOXIN 0.125 MG TAB PO SCH (07:55)
[2022-11-09] MEDS: amLODIPine 5 MG TAB PO SCH (07:56)
[2022-11-09] MEDS: NYSTATIN 100,000 UNITS/GM TOPICAL PWD 15GM TOP SCH ×2 (07:57→21:31)
[2022-11-09] MEDS: MIRALAX *UNIT DOSE* 17GM PACKET PO SCH (08:00)
[2022-11-09] MEDS: VANICREAM MOISTURIZING SKIN CREAM 113GM TUBE TOP SCH ×2 (08:23→21:31)
[2022-11-09 14:46] VITALS: BP 167/72
[2022-11-09 15:06] VITALS: BP 168/70
[2022-11-09] MEDS: ATORVASTATIN 20 MG TAB PO SCH (21:29)
[2022-11-09] MEDS: LEVEMIR (INSULIN DETEMIR) 1 UNITS/0.01ML SC SCH (21:30)
[2022-11-10 05:32] VITALS: BP 144/68
[2022-11-10] MEDS: PIPERACILLIN/TAZOBACTAM SOD 4.5 GM in D5W MINI-BAG PLUS 50 ML IV SCH ×2 (05:51→17:41)
[2022-11-10] MEDS: SODIUM CHLORIDE 0.9% INJ 10 ML SYR IV SCH ×2 (05:53→17:41)
[2022-11-10] MEDS: **hydrALAZINE** 10 MG TAB PO SCH ×3 (06:00→21:45)
[2022-11-10 06:32] LABS: BASO # 0.1 10^3/uL (0.0-0.2); BASO % 0.8 % (0.0-1.0); EOS # 0.2 10^3/uL (0.0-0.5); EOS % 2.7 % (0.0-3.0); HEMATOCRIT 40.1 % (42.0-52.0); HEMOGLOBIN 12.4 g/dl (13.5-17.5); LYMPH # 1.1 10^3/uL (1.5-5.0); LYMPH % 12.7 % (24.0-44.0); MEAN CORPUSCULAR HEMOGLOBIN 28.3 pg (27.0-33.0); MEAN CORPUSCULAR HGB CONC 30.9 g/dl (32.0-36.5); MEAN CORPUSCULAR VOLUME 91.6 fl (80.0-96.0); MONO # 0.7 10^3/uL (0.0-0.8); MONO % 8.2 % (2.0-8.0); NEUTROPHILS # 6.5 10^3/uL (1.5-8.5); NEUTROPHILS % 75.1 % (36.0-66.0); PLATELET COUNT, AUTOMATED 208 10^3/uL (150-450); RED BLOOD COUNT 4.38 10^6/uL (4.30-6.10); WHITE BLOOD COUNT 8.6 10^3/uL (4.0-10.0)
[2022-11-10 07:02] LABS: C REACTIVE PROTEIN QUANTITATIV 1.3 MG/DL (<1.0); CALCIUM LEVEL 8.5 MG/DL (8.3-10.6); CREATININE FOR GFR 5.56 MG/DL (0.70-1.30); GLOMERULAR FILTRATION RATE 10.8 (>42); MAGNESIUM LEVEL 1.9 MG/DL (1.8-2.4); POTASSIUM SERUM 3.9 MMOL/L (3.5-5.1)
[2022-11-10] MEDS: SUCRALFATE SUSP 1GM/10ML UD PO SCH ×4 (07:24→21:00)
[2022-11-10] MEDS: MIRALAX *UNIT DOSE* 17GM PACKET PO SCH (07:25)
[2022-11-10] MEDS: INSULIN LISPRO (NovoLOG) PER UNIT SC SCH ×4 (07:25→21:00)
[2022-11-10] MEDS: SUCROFERRIC OXYHYDROXIDE 500MG CHEW TAB (VELPHORO) PO SCH ×3 (07:35→17:41)
[2022-11-10] MEDS: DIGOXIN 0.125 MG TAB PO SCH (08:04)
[2022-11-10] MEDS: LACTOBACILLUS ACIDOPHILUS CAP (BACID) PO SCH ×2 (08:04→17:41)
[2022-11-10] MEDS: CARVedilol 6.25 MG TAB PO SCH ×2 (08:05→21:43)
[2022-11-10] MEDS: SENNA 8.6 MG TAB (SENOKOT) PO SCH (08:05)
[2022-11-10] MEDS: amLODIPine 5 MG TAB PO SCH (08:05)
[2022-11-10] MEDS: PANTOPRAZOLE 40MG TAB (PROTONIX) PO SCH ×2 (08:05→21:44)
[2022-11-10] MEDS: ASPIRIN 81MG ENTERIC TABLET PO SCH (08:06)
[2022-11-10] MEDS: NYSTATIN 100,000 UNITS/GM TOPICAL PWD 15GM TOP SCH ×2 (08:06→21:44)
[2022-11-10] MEDS: APIXABAN 5 MG TAB (ELIQUIS) PO SCH ×2 (08:06→21:44)
[2022-11-10] MEDS: VANICREAM MOISTURIZING SKIN CREAM 113GM TUBE TOP SCH ×2 (08:06→21:44)
[2022-11-10] MEDS: TAMSULOSIN 0.4 MG CAP PO SCH (08:06)
[2022-11-10] MEDS: MUPIROCIN 2% OINT 22 GM TUBE TOP SCH (08:07)
[2022-11-10] MEDS ORDERED: ONDANSETRON 4MG 2ML VIAL IV ONE (13:05)
[2022-11-10] MEDS: LEVEMIR (INSULIN DETEMIR) 1 UNITS/0.01ML SC SCH (21:40)
[2022-11-10] MEDS: ATORVASTATIN 20 MG TAB PO SCH (21:41)
[2022-11-11] MEDS ORDERED: SODIUM CHLORIDE 0.9% 1000ML IV PRN (05:00)
[2022-11-11] MEDS ORDERED: HEPARIN 1,000UNITS/ML 10ML VIAL (FOR RADIOLOGY & DIALYSIS ONLY) XX SCH (05:00)
[2022-11-11] MEDS ORDERED: LIDOCAINE 1% SDV 5ML VIAL SC PRN (05:00)
[2022-11-11] MEDS ORDERED: HEPARIN 1,000UNITS/ML 10ML VIAL (FOR RADIOLOGY & DIALYSIS ONLY) IV PRN (05:00)
[2022-11-11 06:00] VITALS: BP 132/58
[2022-11-11] MEDS: **hydrALAZINE** 10 MG TAB PO SCH ×3 (06:00→21:20)
[2022-11-11] MEDS: PIPERACILLIN/TAZOBACTAM SOD 4.5 GM in D5W MINI-BAG PLUS 50 ML IV SCH (06:17)
[2022-11-11 06:31] LABS: BASO # 0.1 10^3/uL (0.0-0.2); EOS # 0.2 10^3/uL (0.0-0.5); EOS % 2.3 % (0.0-3.0); HEMATOCRIT 40.5 % (42.0-52.0); HEMOGLOBIN 12.3 g/dl (13.5-17.5); LYMPH # 1.4 10^3/uL (1.5-5.0); LYMPH % 13.2 % (24.0-44.0); MEAN CORPUSCULAR HEMOGLOBIN 27.9 pg (27.0-33.0); MEAN CORPUSCULAR HGB CONC 30.4 g/dl (32.0-36.5); MEAN CORPUSCULAR VOLUME 91.8 fl (80.0-96.0); MONO # 0.8 10^3/uL (0.0-0.8); MONO % 7.7 % (2.0-8.0); NEUTROPHILS # 7.9 10^3/uL (1.5-8.5); NEUTROPHILS % 75.4 % (36.0-66.0); PLATELET COUNT, AUTOMATED 220 10^3/uL (150-450); RED BLOOD COUNT 4.41 10^6/uL (4.30-6.10); WHITE BLOOD COUNT 10.5 10^3/uL (4.0-10.0)
[2022-11-11] MEDS: SODIUM CHLORIDE 0.9% INJ 10 ML SYR IV SCH ×2 (06:37→17:05)
[2022-11-11] MEDS: SUCRALFATE SUSP 1GM/10ML UD PO SCH ×4 (06:37→21:00)
[2022-11-11] MEDS: INSULIN LISPRO (NovoLOG) PER UNIT SC SCH ×4 (06:37→21:00)
[2022-11-11] MEDS: APIXABAN 5 MG TAB (ELIQUIS) PO SCH ×2 (06:43→21:18)
[2022-11-11] MEDS: SENNA 8.6 MG TAB (SENOKOT) PO SCH (06:43)
[2022-11-11] MEDS: ASPIRIN 81MG ENTERIC TABLET PO SCH (06:43)
[2022-11-11] MEDS: amLODIPine 5 MG TAB PO SCH (06:45)
[2022-11-11] MEDS: MIRALAX *UNIT DOSE* 17GM PACKET PO SCH (06:47)
[2022-11-11] MEDS: CARVedilol 6.25 MG TAB PO SCH ×2 (06:47→21:18)
[2022-11-11] MEDS: TAMSULOSIN 0.4 MG CAP PO SCH (06:49)
[2022-11-11] MEDS: PANTOPRAZOLE 40MG TAB (PROTONIX) PO SCH ×2 (06:49→21:19)
[2022-11-11] MEDS: VANICREAM MOISTURIZING SKIN CREAM 113GM TUBE TOP SCH ×2 (06:52→21:20)
[2022-11-11] MEDS: NYSTATIN 100,000 UNITS/GM TOPICAL PWD 15GM TOP SCH ×2 (06:52→21:20)
[2022-11-11 07:00] LABS: C REACTIVE PROTEIN QUANTITATIV 1.4 MG/DL (<1.0)
[2022-11-11 07:01] LABS: CALCIUM LEVEL 8.5 MG/DL (8.3-10.6); CREATININE FOR GFR 6.71 MG/DL (0.70-1.30); GLOMERULAR FILTRATION RATE 8.7 (>42); POTASSIUM SERUM 3.8 MMOL/L (3.5-5.1)
[2022-11-11] MEDS: SUCROFERRIC OXYHYDROXIDE 500MG CHEW TAB (VELPHORO) PO SCH ×3 (07:13→17:04)
[2022-11-11] MEDS: LACTOBACILLUS ACIDOPHILUS CAP (BACID) PO SCH ×2 (07:13→17:04)
[2022-11-11] MEDS: DIGOXIN 0.125 MG TAB PO SCH (07:52)
[2022-11-11 08:11] LABS: DIGOXIN LEVEL 1.9 NG/ML (0.8-2.0)
[2022-11-11] MEDS ORDERED: LevoFLOXacin 750 MG TABLET PO ONE (16:00)
[2022-11-11] MEDS: ATORVASTATIN 20 MG TAB PO SCH (21:19)
[2022-11-11] MEDS: LEVEMIR (INSULIN DETEMIR) 1 UNITS/0.01ML SC SCH (21:21)
[2022-11-12] MEDS: **hydrALAZINE** 10 MG TAB PO SCH ×3 (05:05→22:00)
[2022-11-12] MEDS: SODIUM CHLORIDE 0.9% INJ 10 ML SYR IV SCH ×2 (05:36→17:21)
[2022-11-12 06:04] LABS: BASO # 0.1 10^3/uL (0.0-0.2); BASO % 0.9 % (0.0-1.0); EOS # 0.2 10^3/uL (0.0-0.5); HEMATOCRIT 38.2 % (42.0-52.0); HEMOGLOBIN 11.6 g/dl (13.5-17.5); LYMPH # 1.4 10^3/uL (1.5-5.0); LYMPH % 15.7 % (24.0-44.0); MEAN CORPUSCULAR HEMOGLOBIN 27.8 pg (27.0-33.0); MEAN CORPUSCULAR HGB CONC 30.4 g/dl (32.0-36.5); MEAN CORPUSCULAR VOLUME 91.6 fl (80.0-96.0); MONO # 0.7 10^3/uL (0.0-0.8); MONO % 7.6 % (2.0-8.0); NEUTROPHILS # 6.6 10^3/uL (1.5-8.5); NEUTROPHILS % 73.5 % (36.0-66.0); PLATELET COUNT, AUTOMATED 222 10^3/uL (150-450); RED BLOOD COUNT 4.17 10^6/uL (4.30-6.10)
[2022-11-12 06:24] VITALS: BP 147/65
[2022-11-12] MEDS: INSULIN LISPRO (NovoLOG) PER UNIT SC SCH ×4 (07:30→21:00)
[2022-11-12] MEDS: SUCRALFATE SUSP 1GM/10ML UD PO SCH ×4 (07:30→21:00)
[2022-11-12] MEDS: MIRALAX *UNIT DOSE* 17GM PACKET PO SCH (07:31)
[2022-11-12 08:02] LABS: CALCIUM LEVEL 8.7 MG/DL (8.3-10.6); CREATININE FOR GFR 4.62 MG/DL (0.70-1.30); GLOMERULAR FILTRATION RATE 13.3 (>42); MAGNESIUM LEVEL 1.6 MG/DL (1.8-2.4); POTASSIUM SERUM 4.2 MMOL/L (3.5-5.1)
[2022-11-12 08:13] LABS: C REACTIVE PROTEIN QUANTITATIV 1.5 MG/DL (<1.0)
[2022-11-12] MEDS: LACTOBACILLUS ACIDOPHILUS CAP (BACID) PO SCH ×2 (09:03→17:20)
[2022-11-12] MEDS: ASPIRIN 81MG ENTERIC TABLET PO SCH (09:03)
[2022-11-12] MEDS: SUCROFERRIC OXYHYDROXIDE 500MG CHEW TAB (VELPHORO) PO SCH ×3 (09:03→17:20)
[2022-11-12] MEDS: TAMSULOSIN 0.4 MG CAP PO SCH (09:03)
[2022-11-12] MEDS: APIXABAN 5 MG TAB (ELIQUIS) PO SCH ×2 (09:03→21:45)
[2022-11-12] MEDS: SENNA 8.6 MG TAB (SENOKOT) PO SCH (09:04)
[2022-11-12] MEDS: amLODIPine 5 MG TAB PO SCH (09:04)
[2022-11-12] MEDS: PANTOPRAZOLE 40MG TAB (PROTONIX) PO SCH ×2 (09:04→21:42)
[2022-11-12] MEDS: DIGOXIN 0.125 MG TAB PO SCH (09:04)
[2022-11-12] MEDS: NYSTATIN 100,000 UNITS/GM TOPICAL PWD 15GM TOP SCH ×2 (09:05→21:48)
[2022-11-12] MEDS: MUPIROCIN 2% OINT 22 GM TUBE TOP SCH (09:05)
[2022-11-12] MEDS: VANICREAM MOISTURIZING SKIN CREAM 113GM TUBE TOP SCH ×2 (09:05→21:49)
[2022-11-12] MEDS: CARVedilol 6.25 MG TAB PO SCH ×2 (09:05→21:42)
[2022-11-12] MEDS: LevoFLOXacin 250 MG TABLET PO SCH (17:20)
[2022-11-12] MEDS: ATORVASTATIN 20 MG TAB PO SCH (21:42)
[2022-11-12] MEDS: LEVEMIR (INSULIN DETEMIR) 1 UNITS/0.01ML SC SCH (21:48)
[2022-11-13] MEDS ORDERED: LIDOCAINE 1% SDV 5ML VIAL SC PRN (04:55)
[2022-11-13] MEDS ORDERED: HEPARIN 1,000UNITS/ML 10ML VIAL (FOR RADIOLOGY & DIALYSIS ONLY) IV PRN (04:55)
[2022-11-13] MEDS ORDERED: HEPARIN 1,000UNITS/ML 10ML VIAL (FOR RADIOLOGY & DIALYSIS ONLY) XX SCH (04:55)
[2022-11-13] MEDS ORDERED: SODIUM CHLORIDE 0.9% 1000ML IV PRN (04:55)
[2022-11-13] MEDS: **hydrALAZINE** 10 MG TAB PO SCH ×3 (06:00→21:50)
[2022-11-13 06:10] LABS: BASO # 0.1 10^3/uL (0.0-0.2); BASO % 0.9 % (0.0-1.0); EOS # 0.1 10^3/uL (0.0-0.5); EOS % 1.7 % (0.0-3.0); HEMATOCRIT 36.9 % (42.0-52.0); HEMOGLOBIN 11.4 g/dl (13.5-17.5); LYMPH # 1.4 10^3/uL (1.5-5.0); LYMPH % 17.1 % (24.0-44.0); MEAN CORPUSCULAR HGB CONC 30.9 g/dl (32.0-36.5); MEAN CORPUSCULAR VOLUME 90.7 fl (80.0-96.0); MONO # 0.6 10^3/uL (0.0-0.8); MONO % 7.6 % (2.0-8.0); NEUTROPHILS # 5.9 10^3/uL (1.5-8.5); NEUTROPHILS % 72.2 % (36.0-66.0); PLATELET COUNT, AUTOMATED 213 10^3/uL (150-450); RED BLOOD COUNT 4.07 10^6/uL (4.30-6.10); WHITE BLOOD COUNT 8.2 10^3/uL (4.0-10.0)
[2022-11-13 06:35] LABS: C REACTIVE PROTEIN QUANTITATIV 1.1 MG/DL (<1.0); CALCIUM LEVEL 8.6 MG/DL (8.3-10.6); CREATININE FOR GFR 5.88 MG/DL (0.70-1.30); GLOMERULAR FILTRATION RATE 10.1 (>42); MAGNESIUM LEVEL 1.7 MG/DL (1.8-2.4); POTASSIUM SERUM 4.3 MMOL/L (3.5-5.1)
[2022-11-13] MEDS: SODIUM CHLORIDE 0.9% INJ 10 ML SYR IV SCH ×2 (06:47→17:54)
[2022-11-13] MEDS: CARVedilol 6.25 MG TAB PO SCH ×2 (06:48→21:26)
[2022-11-13] MEDS: ASPIRIN 81MG ENTERIC TABLET PO SCH (06:48)
[2022-11-13] MEDS: LACTOBACILLUS ACIDOPHILUS CAP (BACID) PO SCH ×2 (06:49→17:54)
[2022-11-13] MEDS: PANTOPRAZOLE 40MG TAB (PROTONIX) PO SCH ×2 (06:51→21:26)
[2022-11-13] MEDS: DIGOXIN 0.125 MG TAB PO SCH (06:51)
[2022-11-13] MEDS: amLODIPine 5 MG TAB PO SCH (06:52)
[2022-11-13] MEDS: SENNA 8.6 MG TAB (SENOKOT) PO SCH (06:52)
[2022-11-13] MEDS: TAMSULOSIN 0.4 MG CAP PO SCH (06:52)
[2022-11-13] MEDS: APIXABAN 5 MG TAB (ELIQUIS) PO SCH (06:53)
[2022-11-13] MEDS: VANICREAM MOISTURIZING SKIN CREAM 113GM TUBE TOP SCH ×2 (06:54→21:27)
[2022-11-13] MEDS: NYSTATIN 100,000 UNITS/GM TOPICAL PWD 15GM TOP SCH ×2 (06:54→21:27)
[2022-11-13] MEDS: SUCROFERRIC OXYHYDROXIDE 500MG CHEW TAB (VELPHORO) PO SCH ×3 (07:01→17:54)
[2022-11-13] MEDS: SUCRALFATE SUSP 1GM/10ML UD PO SCH ×4 (07:03→21:00)
[2022-11-13] MEDS: MIRALAX *UNIT DOSE* 17GM PACKET PO SCH (07:03)
[2022-11-13] MEDS: INSULIN LISPRO (NovoLOG) PER UNIT SC SCH ×4 (07:22→21:00)
[2022-11-13] MEDS: LevoFLOXacin 250 MG TABLET PO SCH (17:54)
[2022-11-13 21:21] VITALS: BP 140/58
[2022-11-13] MEDS: LEVEMIR (INSULIN DETEMIR) 1 UNITS/0.01ML SC SCH (21:23)
[2022-11-13] MEDS: ATORVASTATIN 20 MG TAB PO SCH (21:24)
[2022-11-14] MEDS: SODIUM CHLORIDE 0.9% INJ 10 ML SYR IV SCH ×2 (06:00→18:11)
[2022-11-14 06:21] VITALS: BP 136/72
[2022-11-14] MEDS: **hydrALAZINE** 10 MG TAB PO SCH ×3 (07:11→21:34)
[2022-11-14] MEDS: MIRALAX *UNIT DOSE* 17GM PACKET PO SCH (07:12)
[2022-11-14] MEDS: SUCRALFATE SUSP 1GM/10ML UD PO SCH ×4 (07:12→20:58)
[2022-11-14] MEDS: INSULIN LISPRO (NovoLOG) PER UNIT SC SCH ×4 (07:30→21:00)
[2022-11-14] MEDS: SUCROFERRIC OXYHYDROXIDE 500MG CHEW TAB (VELPHORO) PO SCH ×3 (07:46→18:10)
[2022-11-14 08:24] LABS: BASO # 0.1 10^3/uL (0.0-0.2); BASO % 1.2 % (0.0-1.0); EOS # 0.2 10^3/uL (0.0-0.5); EOS % 1.8 % (0.0-3.0); HEMATOCRIT 39.3 % (42.0-52.0); LYMPH # 1.6 10^3/uL (1.5-5.0); LYMPH % 19.3 % (24.0-44.0); MEAN CORPUSCULAR HEMOGLOBIN 27.7 pg (27.0-33.0); MEAN CORPUSCULAR HGB CONC 30.5 g/dl (32.0-36.5); MEAN CORPUSCULAR VOLUME 90.8 fl (80.0-96.0); MONO # 0.6 10^3/uL (0.0-0.8); MONO % 6.8 % (2.0-8.0); NEUTROPHILS # 5.9 10^3/uL (1.5-8.5); NEUTROPHILS % 70.4 % (36.0-66.0); PLATELET COUNT, AUTOMATED 217 10^3/uL (150-450); RED BLOOD COUNT 4.33 10^6/uL (4.30-6.10); WHITE BLOOD COUNT 8.4 10^3/uL (4.0-10.0)
[2022-11-14 08:44] LABS: CALCIUM LEVEL 8.5 MG/DL (8.3-10.6); CREATININE FOR GFR 4.59 MG/DL (0.70-1.30); GLOMERULAR FILTRATION RATE 13.4 (>42); POTASSIUM SERUM 3.9 MMOL/L (3.5-5.1)
[2022-11-14] MEDS: PANTOPRAZOLE 40MG TAB (PROTONIX) PO SCH ×2 (09:29→21:32)
[2022-11-14] MEDS: LACTOBACILLUS ACIDOPHILUS CAP (BACID) PO SCH ×2 (09:29→18:10)
[2022-11-14] MEDS: DIGOXIN 0.125 MG TAB PO SCH (09:30)
[2022-11-14] MEDS: TAMSULOSIN 0.4 MG CAP PO SCH (09:30)
[2022-11-14] MEDS: ASPIRIN 81MG ENTERIC TABLET PO SCH (09:30)
[2022-11-14] MEDS: SENNA 8.6 MG TAB (SENOKOT) PO SCH (09:30)
[2022-11-14] MEDS: CARVedilol 6.25 MG TAB PO SCH ×2 (09:30→21:32)
[2022-11-14] MEDS: MUPIROCIN 2% OINT 22 GM TUBE TOP SCH (09:31)
[2022-11-14] MEDS: amLODIPine 5 MG TAB PO SCH (09:31)
[2022-11-14] MEDS: VANICREAM MOISTURIZING SKIN CREAM 113GM TUBE TOP SCH ×2 (09:31→21:33)
[2022-11-14] MEDS: NYSTATIN 100,000 UNITS/GM TOPICAL PWD 15GM TOP SCH ×2 (09:31→21:33)
[2022-11-14] MEDS: LevoFLOXacin 250 MG TABLET PO SCH (18:10)
[2022-11-14] MEDS: LEVEMIR (INSULIN DETEMIR) 1 UNITS/0.01ML SC SCH (21:31)
[2022-11-14] MEDS: ATORVASTATIN 20 MG TAB PO SCH (21:32)
[2022-11-15] MEDS ORDERED: LIDOCAINE 1% SDV 5ML VIAL SC PRN (01:15)
[2022-11-15] MEDS ORDERED: SODIUM CHLORIDE 0.9% 1000ML IV PRN (01:15)
[2022-11-15] MEDS ORDERED: HEPARIN 1,000UNITS/ML 10ML VIAL (FOR RADIOLOGY & DIALYSIS ONLY) XX SCH (01:15)
[2022-11-15] MEDS ORDERED: HEPARIN 1,000UNITS/ML 10ML VIAL (FOR RADIOLOGY & DIALYSIS ONLY) IV PRN (01:15)
[2022-11-15 05:06] VITALS: BP 135/72
[2022-11-15] MEDS: SUCRALFATE SUSP 1GM/10ML UD PO SCH ×4 (05:34→21:00)
[2022-11-15] MEDS: MIRALAX *UNIT DOSE* 17GM PACKET PO SCH (05:35)
[2022-11-15 06:00] VITALS: BP 135/72
[2022-11-15] MEDS: **hydrALAZINE** 10 MG TAB PO SCH ×3 (06:00→22:00)
[2022-11-15] MEDS: ASPIRIN 81MG ENTERIC TABLET PO SCH (06:17)
[2022-11-15] MEDS: TAMSULOSIN 0.4 MG CAP PO SCH (06:18)
[2022-11-15] MEDS: CARVedilol 6.25 MG TAB PO SCH ×2 (06:20→22:13)
[2022-11-15] MEDS: SENNA 8.6 MG TAB (SENOKOT) PO SCH (06:21)
[2022-11-15] MEDS: DIGOXIN 0.125 MG TAB PO SCH (06:21)
[2022-11-15] MEDS: PANTOPRAZOLE 40MG TAB (PROTONIX) PO SCH ×2 (06:21→22:11)
[2022-11-15] MEDS: VANICREAM MOISTURIZING SKIN CREAM 113GM TUBE TOP SCH ×2 (06:22→22:09)
[2022-11-15] MEDS: NYSTATIN 100,000 UNITS/GM TOPICAL PWD 15GM TOP SCH ×2 (06:22→22:10)
[2022-11-15] MEDS: amLODIPine 5 MG TAB PO SCH (06:22)
[2022-11-15] MEDS: SODIUM CHLORIDE 0.9% INJ 10 ML SYR IV SCH ×2 (06:27→17:39)
[2022-11-15] MEDS: LACTOBACILLUS ACIDOPHILUS CAP (BACID) PO SCH ×2 (07:00→17:38)
[2022-11-15] MEDS: SUCROFERRIC OXYHYDROXIDE 500MG CHEW TAB (VELPHORO) PO SCH ×3 (07:00→17:38)
[2022-11-15] MEDS: INSULIN LISPRO (NovoLOG) PER UNIT SC SCH ×4 (07:03→21:00)
[2022-11-15 13:47] LABS: ALBUMIN 2.9 G/DL (3.2-5.2); ALKALINE PHOSPHATASE 96 U/L (46-116); ALT/SGPT 18 U/L (7.0-40); AST/SGOT 18 U/L (<34); BILIRUBIN,TOTAL 0.3 MG/DL (0.3-1.2); BLOOD UREA NITROGEN 10 MG/DL (9-23); CALCIUM LEVEL 9.4 MG/DL (8.3-10.6); CARBON DIOXIDE LEVEL 25 MMOL/L (20-31); CHLORIDE LEVEL 104 MMOL/L (98-107); CREATININE FOR GFR 2.59 MG/DL (0.70-1.30); GLUCOSE, FASTING 116 MG/DL (74-106); HEPATITIS B CORE ANTIBODY IGM NEGATIVE (NEGATIVE); HEPATITIS B SURFACE ANTIGEN NEGATIVE (NEGATIVE); HEPATITIS C VIRUS ABY INDEX 0.1 INDEX (<0.8); POTASSIUM SERUM 3.7 MMOL/L (3.5-5.1); SODIUM LEVEL 137 MMOL/L (136-145); TOTAL PROTEIN 6.2 G/DL (5.7-8.2)
[2022-11-15 14:00] VITALS: BP 131/58
[2022-11-15] MEDS: LevoFLOXacin 250 MG TABLET PO SCH (16:15)
[2022-11-15] MEDS: ATORVASTATIN 20 MG TAB PO SCH (22:10)
[2022-11-15] MEDS: LEVEMIR (INSULIN DETEMIR) 1 UNITS/0.01ML SC SCH (22:10)
[2022-11-16 05:15] VITALS: BP 148/74
[2022-11-16] MEDS: **hydrALAZINE** 10 MG TAB PO SCH ×3 (06:00→21:13)
[2022-11-16] MEDS: SODIUM CHLORIDE 0.9% INJ 10 ML SYR IV SCH ×2 (06:24→17:32)
[2022-11-16] MEDS: SUCROFERRIC OXYHYDROXIDE 500MG CHEW TAB (VELPHORO) PO SCH ×3 (08:00→17:31)
[2022-11-16 08:50] LABS: HEMATOCRIT 39.4 % (42.0-52.0); HEMOGLOBIN 12.3 g/dl (13.5-17.5); MEAN CORPUSCULAR HEMOGLOBIN 27.8 pg (27.0-33.0); MEAN CORPUSCULAR HGB CONC 31.2 g/dl (32.0-36.5); MEAN CORPUSCULAR VOLUME 88.9 fl (80.0-96.0); PLATELET COUNT, AUTOMATED 244 10^3/uL (150-450); RED BLOOD COUNT 4.43 10^6/uL (4.30-6.10); WHITE BLOOD COUNT 9.3 10^3/uL (4.0-10.0)
[2022-11-16] MEDS: SUCRALFATE SUSP 1GM/10ML UD PO SCH ×4 (08:51→20:49)
[2022-11-16] MEDS: PANTOPRAZOLE 40MG TAB (PROTONIX) PO SCH ×2 (08:52→20:47)
[2022-11-16] MEDS: ASPIRIN 81MG ENTERIC TABLET PO SCH (08:52)
[2022-11-16] MEDS: INSULIN LISPRO (NovoLOG) PER UNIT SC SCH ×4 (08:52→21:00)
[2022-11-16] MEDS: CARVedilol 6.25 MG TAB PO SCH ×2 (08:53→20:48)
[2022-11-16] MEDS: TAMSULOSIN 0.4 MG CAP PO SCH (08:53)
[2022-11-16] MEDS: LACTOBACILLUS ACIDOPHILUS CAP (BACID) PO SCH ×2 (08:55→17:31)
[2022-11-16] MEDS: amLODIPine 5 MG TAB PO SCH (08:56)
[2022-11-16] MEDS: MIRALAX *UNIT DOSE* 17GM PACKET PO SCH (08:56)
[2022-11-16] MEDS: DIGOXIN 0.125 MG TAB PO SCH (08:56)
[2022-11-16] MEDS: SENNA 8.6 MG TAB (SENOKOT) PO SCH (08:57)
[2022-11-16] MEDS: NYSTATIN 100,000 UNITS/GM TOPICAL PWD 15GM TOP SCH ×2 (08:58→20:51)
[2022-11-16] MEDS: VANICREAM MOISTURIZING SKIN CREAM 113GM TUBE TOP SCH ×2 (08:58→20:51)
[2022-11-16] MEDS: MUPIROCIN 2% OINT 22 GM TUBE TOP SCH (08:58)
[2022-11-16] MEDS: LevoFLOXacin 250 MG TABLET PO SCH (17:31)
[2022-11-16] MEDS: ATORVASTATIN 20 MG TAB PO SCH (20:47)
[2022-11-16] MEDS: APIXABAN 5 MG TAB (ELIQUIS) PO SCH (20:47)
[2022-11-16] MEDS: LEVEMIR (INSULIN DETEMIR) 1 UNITS/0.01ML SC SCH (21:16)
[2022-11-17] MEDS: SODIUM CHLORIDE 0.9% INJ 10 ML SYR IV SCH ×2 (05:25→17:31)
[2022-11-17] MEDS: **hydrALAZINE** 10 MG TAB PO SCH ×2 (05:31→13:21)
[2022-11-17 05:54] VITALS: BP 130/72
[2022-11-17] MEDS: SUCRALFATE SUSP 1GM/10ML UD PO SCH ×2 (07:30→13:20)
[2022-11-17] MEDS: SUCROFERRIC OXYHYDROXIDE 500MG CHEW TAB (VELPHORO) PO SCH ×3 (08:00→17:29)
[2022-11-17] MEDS: MIRALAX *UNIT DOSE* 17GM PACKET PO SCH (08:12)
[2022-11-17] MEDS: INSULIN LISPRO (NovoLOG) PER UNIT SC SCH ×4 (08:52→21:00)
[2022-11-17] MEDS: TAMSULOSIN 0.4 MG CAP PO SCH (08:52)
[2022-11-17] MEDS: ASPIRIN 81MG ENTERIC TABLET PO SCH (08:52)
[2022-11-17] MEDS: LACTOBACILLUS ACIDOPHILUS CAP (BACID) PO SCH ×2 (08:52→17:29)
[2022-11-17] MEDS: PANTOPRAZOLE 40MG TAB (PROTONIX) PO SCH ×2 (08:52→21:26)
[2022-11-17] MEDS: SENNA 8.6 MG TAB (SENOKOT) PO SCH (08:52)
[2022-11-17] MEDS: DIGOXIN 0.125 MG TAB PO SCH (08:53)
[2022-11-17] MEDS: APIXABAN 5 MG TAB (ELIQUIS) PO SCH ×2 (08:53→21:26)
[2022-11-17] MEDS: amLODIPine 5 MG TAB PO SCH (08:53)
[2022-11-17] MEDS: CARVedilol 6.25 MG TAB PO SCH ×2 (08:53→21:27)
[2022-11-17] MEDS: NYSTATIN 100,000 UNITS/GM TOPICAL PWD 15GM TOP SCH ×2 (08:54→21:31)
[2022-11-17] MEDS: VANICREAM MOISTURIZING SKIN CREAM 113GM TUBE TOP SCH ×2 (08:54→21:31)
[2022-11-17] MEDS: LevoFLOXacin 250 MG TABLET PO SCH (17:29)
[2022-11-17] MEDS: ATORVASTATIN 20 MG TAB PO SCH (21:27)
[2022-11-17] MEDS: LEVEMIR (INSULIN DETEMIR) 1 UNITS/0.01ML SC SCH (21:30)
[2022-11-18 06:00] VITALS: BP 134/88
[2022-11-18] MEDS ORDERED: SODIUM CHLORIDE 0.9% 1000ML IV PRN (06:00)
[2022-11-18] MEDS ORDERED: LIDOCAINE 1% SDV 5ML VIAL SC PRN (06:00)
[2022-11-18] MEDS: MUPIROCIN 2% OINT 22 GM TUBE TOP SCH (06:34)
[2022-11-18] MEDS: SODIUM CHLORIDE 0.9% INJ 10 ML SYR IV SCH ×2 (06:43→18:02)
[2022-11-18] MEDS: SODIUM CHLORIDE 0.9% INJ 10 ML SYR IV PRN (06:44)
[2022-11-18] MEDS: NYSTATIN 100,000 UNITS/GM TOPICAL PWD 15GM TOP SCH ×2 (06:44→21:50)
[2022-11-18] MEDS: VANICREAM MOISTURIZING SKIN CREAM 113GM TUBE TOP SCH ×2 (06:45→21:51)
[2022-11-18] MEDS: LACTOBACILLUS ACIDOPHILUS CAP (BACID) PO SCH ×2 (06:54→18:00)
[2022-11-18] MEDS: ASPIRIN 81MG ENTERIC TABLET PO SCH (06:54)
[2022-11-18] MEDS: SUCROFERRIC OXYHYDROXIDE 500MG CHEW TAB (VELPHORO) PO SCH ×3 (06:54→18:00)
[2022-11-18] MEDS: APIXABAN 5 MG TAB (ELIQUIS) PO SCH ×2 (06:55→21:43)
[2022-11-18] MEDS: TAMSULOSIN 0.4 MG CAP PO SCH (06:55)
[2022-11-18] MEDS: DIGOXIN 0.125 MG TAB PO SCH (06:55)
[2022-11-18] MEDS: CARVedilol 6.25 MG TAB PO SCH ×2 (06:56→21:50)
[2022-11-18] MEDS: SENNA 8.6 MG TAB (SENOKOT) PO SCH (06:57)
[2022-11-18] MEDS: PANTOPRAZOLE 40MG TAB (PROTONIX) PO SCH ×2 (06:57→21:44)
[2022-11-18] MEDS: amLODIPine 5 MG TAB PO SCH (06:59)
[2022-11-18] MEDS: INSULIN LISPRO (NovoLOG) PER UNIT SC SCH ×4 (07:30→21:00)
[2022-11-18] MEDS: LevoFLOXacin 250 MG TABLET PO SCH (16:09)
[2022-11-18] MEDS: ATORVASTATIN 20 MG TAB PO SCH (21:44)
[2022-11-18 21:50] VITALS: BP 152/78
[2022-11-18] MEDS: LEVEMIR (INSULIN DETEMIR) 1 UNITS/0.01ML SC SCH (21:51)
[2022-11-19 00:07] LABS: NICOTINIC ACID <5.0 ng/mL (0.0-5.0); VITAMIN B1 LEVEL WHOLE BLOOD 164.2 nmol/L (66.5-200.0); VITAMIN B6,PYRIDOXAL PHOSPHATE <1.0 ug/L (3.4-65.2); VITAMIN B7 (BIOTIN) 0.06 ng/mL (0.05-0.83)
[2022-11-19] MEDS: SODIUM CHLORIDE 0.9% INJ 10 ML SYR IV SCH (05:07)
[2022-11-19] MEDS: SODIUM CHLORIDE 0.9% INJ 10 ML SYR IV PRN (05:08)
[2022-11-19 05:53] VITALS: BP 147/60
[2022-11-19 06:00] VITALS: BP 147/60
[2022-11-19] MEDS: SUCROFERRIC OXYHYDROXIDE 500MG CHEW TAB (VELPHORO) PO SCH ×2 (07:02→12:19)
[2022-11-19] MEDS: amLODIPine 5 MG TAB PO SCH (09:00)
[2022-11-19] MEDS: CARVedilol 6.25 MG TAB PO SCH (09:00)
[2022-11-19] MEDS: INSULIN LISPRO (NovoLOG) PER UNIT SC SCH ×2 (09:37→12:19)
[2022-11-19 09:47] VITALS: BP 104/58
[2022-11-19] MEDS: APIXABAN 5 MG TAB (ELIQUIS) PO SCH (09:48)
[2022-11-19] MEDS: SENNA 8.6 MG TAB (SENOKOT) PO SCH (09:48)
[2022-11-19] MEDS: DIGOXIN 0.125 MG TAB PO SCH (09:48)
[2022-11-19] MEDS: PANTOPRAZOLE 40MG TAB (PROTONIX) PO SCH (09:48)
[2022-11-19] MEDS: LACTOBACILLUS ACIDOPHILUS CAP (BACID) PO SCH (09:48)
[2022-11-19] MEDS: TAMSULOSIN 0.4 MG CAP PO SCH (09:49)
[2022-11-19] MEDS: NYSTATIN 100,000 UNITS/GM TOPICAL PWD 15GM TOP SCH (09:49)
[2022-11-19] MEDS: PERCOCET 5MG/325MG TAB PO PRN (09:50)
[2022-11-19] MEDS: VANICREAM MOISTURIZING SKIN CREAM 113GM TUBE TOP SCH (09:50)
[2022-11-19] MEDS ORDERED: DIGO0.123 PO (11:00)
[2022-11-19] MEDS ORDERED: RISATAB3 PO (11:00)
[2022-11-19] MEDS ORDERED: CORE12.5 PO (11:00)
[2022-11-19] MEDS ORDERED: ASPI81TAEC PO (11:00)
[2022-11-19] MEDS ORDERED: BASA100I SC (11:00)
[2022-11-19] MEDS ORDERED: MIDO5TA PO (11:00)
[2022-11-19] MEDS ORDERED: AMLO1TAB24 PO (11:00)
[2022-11-19] MEDS ORDERED: LEVO1TAB38 PO (11:07)
[2022-11-19] MEDS ORDERED: AMLO25TA PO (11:11)
[2022-11-19] MEDS: LevoFLOXacin 250 MG TABLET PO SCH (15:41)
[2022-11-19] MEDS ORDERED: ASPIRIN 81MG ENTERIC TABLET PO SCH (21:00)
== END 2022-11-19 15:53 | disposition home health service (06) | DRG 853 ==
LOC: M ED 17:10 → M ED INP 17:55 → ENRESERV 18:44 → M MSPAV 21:31 → M PCU 08-23 00:40 → M MSPAV 08-31 20:59 → M ICU 09-26 11:46 → M PCU 09-26 23:45 → M MSPAV 09-29 15:19
PROVIDERS: ADMIT General Practice; ATTEND Internal Medicine Nephrology
PROC: 0Y6R0Z0 Detachment at Right 2nd Toe, Complete, Open Approach (ICD-10-PCS; principal; 2022-08-26 17:00)
PROC: 05HB33Z Insertion of Infusion Device into Right Basilic Vein, Percutaneous Approach (ICD-10-PCS; 2022-08-30)
PROC: 02HV33Z Insertion of Infusion Device into Superior Vena Cava, Percutaneous Approach (ICD-10-PCS; 2022-09-17)
PROC: 047N3ZZ Dilation of Left Popliteal Artery, Percutaneous Approach (ICD-10-PCS; 2022-09-25)
PROC: 04FU3Z0 Fragmentation of Left Peroneal Artery, Percutaneous Approach, Ultrasonic (ICD-10-PCS; 2022-09-25)
PROC: 02HV33Z Insertion of Infusion Device into Superior Vena Cava, Percutaneous Approach (ICD-10-PCS; 2022-11-06)
DX: A41.52 Sepsis due to Pseudomonas (principal); N18.6 End stage renal disease; K65.9 Peritonitis, unspecified; I69.354 Hemiplegia and hemiparesis following cerebral infarction affecting left non-dominant side; E87.20 Acidosis, unspecified; I48.20 Chronic atrial fibrillation, unspecified; I48.92 Unspecified atrial flutter; L03.116 Cellulitis of left lower limb; M86.172 Other acute osteomyelitis, left ankle and foot; E87.1 Hypo-osmolality and hyponatremia; I12.0 Hypertensive chronic kidney disease with stage 5 chronic kidney disease or end stage renal disease; N25.81 Secondary hyperparathyroidism of renal origin; E11.52 Type 2 diabetes mellitus with diabetic peripheral angiopathy with gangrene; Z99.2 Dependence on renal dialysis; E11.69 Type 2 diabetes mellitus with other specified complication; E11.621 Type 2 diabetes mellitus with foot ulcer; D63.1 Anemia in chronic kidney disease; K21.9 Gastro-esophageal reflux disease without esophagitis; I73.9 Peripheral vascular disease, unspecified; Z88.0 Allergy status to penicillin; Z88.8 Allergy status to other drugs, medicaments and biological substances; Z79.899 Other long term (current) drug therapy; Z79.4 Long term (current) use of insulin; E11.22 Type 2 diabetes mellitus with diabetic chronic kidney disease; Z86.718 Personal history of other venous thrombosis and embolism; Z79.01 Long term (current) use of anticoagulants; Z89.421 Acquired absence of other right toe(s); R29.6 Repeated falls; B96.5 Pseudomonas (aeruginosa) (mallei) (pseudomallei) as the cause of diseases classified elsewhere; B96.29 Other Escherichia coli [E. coli] as the cause of diseases classified elsewhere; Z66 Do not resuscitate; R31.9 Hematuria, unspecified; E87.6 Hypokalemia

== ENCOUNTER → 2023-02-17 | Outpatient (REF) | payer MEDICARE ==
[~2023-02-17] MED LIST changes: +AMLO1TAB24 PO; +AMOX500T2 PO; +ASPI81TAEC PO; +CARD120C3 PO; +CORE12.5 PO; +DIGO0.123 PO; +LEVO1TAB38 PO; +MIDO5TA PO
[2023-02-17 12:58] LABS: CHOLESTEROL RISK RATIO 3.48 (<5); DIGOXIN LEVEL 0.9 NG/ML (0.8-2.0); HDL CHOLESTEROL 28.4 MG/DL (>40); LDL CHOLESTEROL 45.8 MG/DL (<100); NON-HDL-C 70.6 MG/DL
== END ==
LOC: M SFHCCLAY 07:45
PROVIDERS: ATTEND Family Medicine
DX: E11.21 Type 2 diabetes mellitus with diabetic nephropathy (principal); E11.40 Type 2 diabetes mellitus with diabetic neuropathy, unspecified; Z51.81 Encounter for therapeutic drug level monitoring

== ENCOUNTER → 2023-03-21 | Outpatient (REF) | payer MEDICARE ==
[~2023-03-21] MED LIST changes: -AMIT25TA17 PO; +AMIT25TA19 PO
[2023-03-21 11:36] LABS: BASO # 0.1 10^3/uL (0.0-0.2); BASO % 0.5 % (0.0-1.0); EOS # 0.2 10^3/uL (0.0-0.5); EOS % 1.5 % (0.0-3.0); HEMATOCRIT 30.3 % (42.0-52.0); HEMOGLOBIN 9.7 g/dl (13.5-17.5); LYMPH # 2.1 10^3/uL (1.5-5.0); LYMPH % 18.2 % (24.0-44.0); MEAN CORPUSCULAR VOLUME 93.8 fl (80.0-96.0); MONO # 0.7 10^3/uL (0.0-0.8); MONO % 5.8 % (2.0-8.0); NEUTROPHILS # 8.4 10^3/uL (1.5-8.5); NEUTROPHILS % 73.5 % (36.0-66.0); PLATELET COUNT, AUTOMATED 253 10^3/uL (150-450); RED BLOOD COUNT 3.23 10^6/uL (4.30-6.10); WHITE BLOOD COUNT 11.4 10^3/uL (4.0-10.0)
[2023-03-21 11:38] LABS: INR 1.4; PROTHROMBIN TIME 16.8 SECONDS (12.5-14.5)
[2023-03-21 11:39] LABS: PARTIAL THROMBOPLASTIN TIME 34.5 SECONDS (24.8-34.2)
== END ==
LOC: M LABDRAWC 11:04
PROVIDERS: ATTEND Podiatrist
DX: L89.892 Pressure ulcer of other site, stage 2 (principal); Z79.01 Long term (current) use of anticoagulants

== ENCOUNTER → 2023-03-24 | Outpatient (REF) | payer MEDICARE ==
[2023-03-24 17:41] LABS: APPEARANCE, URINE HAZY (CLEAR); BACTERIA, URINE AUTO NEGATIVE (NEGATIVE); BILIRUBIN, URINE AUTO NEGATIVE (NEGATIVE); BLOOD, URINE BLOOD 1+ (NEGATIVE); COLOR, URINE YELLOW (YELLOW); GLUCOSE, URINE (UA) AUTO 2+ mg/dL (NEGATIVE); KETONE, URINE AUTO NEGATIVE (NEGATIVE); LEUKOCYTE ESTERASE, URINE AUTO TRACE (NEGATIVE); NITRITE, URINE AUTO NEGATIVE (NEGATIVE); PROTEIN, URINE AUTO 2+ mg/dL (NEGATIVE); RBC, URINE AUTO 0 /HPF (0-3); SPECIFIC GRAVITY URINE AUTO 1.028 (1.002-1.035); SQUAMOUS EPITHELIAL CELL UR AU 0 /HPF (0-6); UROBILINOGEN, URINE AUTO 0.2 mg/dL (0.0-2.0); WBC, URINE AUTO 24 /HPF (0-3)
== END ==
LOC: M LABDRAWC 16:54
PROVIDERS: ATTEND Podiatrist
DX: L89.892 Pressure ulcer of other site, stage 2 (principal)

== ENCOUNTER → 2023-08-19 | Outpatient (CLI) | payer MEDICARE | LOC: M RAD 15:50 | PROVIDERS: ATTEND Surgery | DX: L97.522 Non-pressure chronic ulcer of other part of left foot with fat layer exposed (principal); E11.621 Type 2 diabetes mellitus with foot ulcer; E11.59 Type 2 diabetes mellitus with other circulatory complications; I73.9 Peripheral vascular disease, unspecified; E11.40 Type 2 diabetes mellitus with diabetic neuropathy, unspecified; I48.91 Unspecified atrial fibrillation; I25.119 Atherosclerotic heart disease of native coronary artery with unspecified angina pectoris; N18.6 End stage renal disease; E11.22 Type 2 diabetes mellitus with diabetic chronic kidney disease; M10.00 Idiopathic gout, unspecified site; G65.0 Sequelae of Guillain-Barre syndrome; E66.09 Other obesity due to excess calories; Z86.73 Personal history of transient ischemic attack (TIA), and cerebral infarction without residual deficits; Z89.412 Acquired absence of left great toe; Z89.422 Acquired absence of other left toe(s) ==

== ENCOUNTER → 2023-10-09 | Outpatient (CLI) | payer MEDICARE ==
[~2023-10-09] VITALS: Ht 180.3 cm; Wt 99.0 kg
[~2023-10-09] MED LIST changes: +DIGO0.127 PO; +HEPA1INJ5 IV; -HYDR-3910 PO; +HYDR25TA87 PO; +OXYC-517 PO
[2023-10-09 15:00] VITALS: BP 90/48; O2SAT 100
== END ==
LOC: M PAL 14:50
PROVIDERS: ATTEND Nurse Practitioner Adult Health
DX: G89.4 Chronic pain syndrome (principal); G62.9 Polyneuropathy, unspecified; N18.6 End stage renal disease; E11.40 Type 2 diabetes mellitus with diabetic neuropathy, unspecified; E11.59 Type 2 diabetes mellitus with other circulatory complications; I73.9 Peripheral vascular disease, unspecified; E11.621 Type 2 diabetes mellitus with foot ulcer; L97.509 Non-pressure chronic ulcer of other part of unspecified foot with unspecified severity; R26.81 Unsteadiness on feet; R29.6 Repeated falls; R53.1 Weakness; R53.81 Other malaise; Z99.2 Dependence on renal dialysis; Z51.5 Encounter for palliative care; Z79.01 Long term (current) use of anticoagulants; Z79.4 Long term (current) use of insulin; Z79.891 Long term (current) use of opiate analgesic; Z79.899 Other long term (current) drug therapy; Z86.73 Personal history of transient ischemic attack (TIA), and cerebral infarction without residual deficits; Z88.1 Allergy status to other antibiotic agents; Z89.429 Acquired absence of other toe(s), unspecified side

== ENCOUNTER 2023-10-18 13:42 | Inpatient (IN) | payer MEDICARE ==
[~2023-10-18] VITALS: Ht 182.9 cm; Wt 97.8 kg
[2023-10-18] MEDS: NS 1,000 ML IV ONE (14:16)
[2023-10-18 14:42] LABS: BASO # 0.1 10^3/uL (0.0-0.2); BASO % 0.4 % (0.0-1.0); EOS # 0.1 10^3/uL (0.0-0.5); EOS % 0.5 % (0.0-3.0); HEMATOCRIT 35.7 % (42.0-52.0); HEMOGLOBIN 11.6 g/dl (13.5-17.5); LYMPH # 0.9 10^3/uL (1.5-5.0); LYMPH % 8.3 % (24.0-44.0); MEAN CORPUSCULAR HEMOGLOBIN 28.8 pg (27.0-33.0); MEAN CORPUSCULAR HGB CONC 32.5 g/dl (32.0-36.5); MEAN CORPUSCULAR VOLUME 88.6 fl (80.0-96.0); MONO # 0.7 10^3/uL (0.0-0.8); MONO % 6.5 % (2.0-8.0); NEUTROPHILS # 9.5 10^3/uL (1.5-8.5); NEUTROPHILS % 83.9 % (36.0-66.0); PLATELET COUNT, AUTOMATED 185 10^3/uL (150-450); RED BLOOD COUNT 4.03 10^6/uL (4.30-6.10); WHITE BLOOD COUNT 11.3 10^3/uL (4.0-10.0)
[2023-10-18 15:08] LABS: RSV AMPLIFICATION NEGATIVE (NEGATIVE)
[2023-10-18 15:10] LABS: DIGOXIN LEVEL 1.6 NG/ML (0.8-2.0)
[2023-10-18 15:18] LABS: ALBUMIN 2.3 G/DL (3.2-5.2); BILIRUBIN,DIRECT 0.1 MG/DL (<0.4); BILIRUBIN,TOTAL 0.3 MG/DL (0.3-1.2); CALCIUM LEVEL 9.7 MG/DL (8.3-10.6); CREATININE FOR GFR 7.96 MG/DL (0.70-1.30); FREE T4 1.49 NG/DL (0.89-1.76); GLOMERULAR FILTRATION RATE 7.1 (>42); MB/CK RELATIVE INDEX 8.69 (< OR =4); POTASSIUM SERUM 2.7 MMOL/L (3.5-5.1); THYROID STIMULATING HORMONE 2.305 uIU/ML (0.55-4.78); TOTAL PROTEIN 5.6 G/DL (5.7-8.2)
[2023-10-18] MEDS: ERTAPENEM SODIUM 1 GM in NS MINI-BAG PLUS 50 ML IV ONE (15:36)
[2023-10-18] MEDS: NS 1,000 ML IV SCH ×2 (15:36→16:47)
[2023-10-18] MEDS: KCL 10MEQ/100ML SWI (KRUN) 10 MEQ in IV 1 EA IV ONE ×2 (15:42→17:21)
[2023-10-18] MEDS: POTASSIUM CHLORIDE 10MEQ SR TABLET PO ONE (15:42)
[2023-10-18 16:09] LABS: INR 1.3; PARTIAL THROMBOPLASTIN TIME 35.3 SECONDS (24.8-34.2); PROTHROMBIN TIME 15.8 SECONDS (12.5-14.5)
[2023-10-18 16:12] LABS: CK-MB VALUE MASS 4.2 NG/ML (<3.6); MB/CK RELATIVE INDEX 8.75 (< OR =4)
[2023-10-18] MEDS: SUCRALFATE SUSP 1GM/10ML UD PO SCH (18:00)
[2023-10-18] MEDS ORDERED: CHOL100013 PO (18:55)
[2023-10-18] MEDS ORDERED: HOME MED LIST COMPLETE! XX SCH (18:55)
[2023-10-18] MEDS: PANTOPRAZOLE 40MG VIAL IV ONE (19:21)
[2023-10-18] MEDS: ACETAMINOPHEN *IV* 1,000 MG in IV 1 EA IV ONE (19:22)
[2023-10-18] MEDS: MORPHINE 2 MG/ML 1ML VIAL IV ONE (19:22)
[2023-10-18] MEDS ORDERED: DEXTROSE 50% 50ML SYRINGE IV PRN (20:05)
[2023-10-18] MEDS ORDERED: GLUCOSE 4GM CHEW TABLET PO PRN (20:05)
[2023-10-18] MEDS ORDERED: GLUCAGON INJ 1MG VIAL SC PRN (20:05)
[2023-10-18 20:17] LABS: CK-MB VALUE MASS 5.2 NG/ML (<3.6)
[2023-10-18 20:18] VITALS: PULSE 89; O2SAT 97
[2023-10-18 20:34] LABS: MB/CK RELATIVE INDEX 10.61 (< OR =4)
[2023-10-18 20:40] VITALS: BP 132/64; TEMP 95.7; O2SAT 97
[2023-10-18] MEDS: KCL 40MEQ in NS 1000ML 1,000 ML IV SCH (20:44)
[2023-10-18] MEDS: INSULIN LISPRO (NovoLOG) PER UNIT SC SCH (20:45)
[2023-10-18] MEDS: PANTOPRAZOLE 40MG VIAL IV SCH (20:46)
[2023-10-18] MEDS: ONDANSETRON 4MG 2ML VIAL IV PRN (20:46)
[2023-10-18] MEDS: APIXABAN 5 MG TAB (ELIQUIS) PO SCH (21:02)
[2023-10-18] MEDS: POTASSIUM CHLORIDE 10MEQ SR TABLET PO SCH (21:03)
[2023-10-18] MEDS: SUCROFERRIC OXYHYDROXIDE 500MG CHEW TAB (VELPHORO) PO SCH (21:03)
[2023-10-18] MEDS: ATORVASTATIN 20 MG TAB PO SCH (21:03)
[2023-10-18 23:57] VITALS: BP 114/62; TEMP 96.7; O2SAT 97
[2023-10-19] VITALS (21 sets, daily range): BP systolic 108–128; BP diastolic 56–74; TEMP 97.1–99.5; O2SAT 86–99
[2023-10-19 06:11] LABS: BASO # 0.1 10^3/uL (0.0-0.2); BASO % 0.6 % (0.0-1.0); EOS # 0.1 10^3/uL (0.0-0.5); EOS % 1.2 % (0.0-3.0); HEMATOCRIT 32.3 % (42.0-52.0); HEMOGLOBIN 10.5 g/dl (13.5-17.5); LYMPH # 1.7 10^3/uL (1.5-5.0); LYMPH % 15.6 % (24.0-44.0); MEAN CORPUSCULAR HEMOGLOBIN 29.3 pg (27.0-33.0); MEAN CORPUSCULAR HGB CONC 32.5 g/dl (32.0-36.5); MEAN CORPUSCULAR VOLUME 90.2 fl (80.0-96.0); MONO # 0.8 10^3/uL (0.0-0.8); MONO % 6.9 % (2.0-8.0); NEUTROPHILS # 8.2 10^3/uL (1.5-8.5); NEUTROPHILS % 75.4 % (36.0-66.0); PLATELET COUNT, AUTOMATED 176 10^3/uL (150-450); RED BLOOD COUNT 3.58 10^6/uL (4.30-6.10); WHITE BLOOD COUNT 10.8 10^3/uL (4.0-10.0)
[2023-10-19 06:41] LABS: CALCIUM LEVEL 8.3 MG/DL (8.3-10.6); CREATININE FOR GFR 8.02 MG/DL (0.70-1.30); POTASSIUM SERUM 3.9 MMOL/L (3.5-5.1)
[2023-10-19 07:15] LABS: SOURCE, BODY FLUID PERITONEAL
[2023-10-19 07:16] LABS: APPEARANCE, BODY FLUID CLEAR (CLEAR); PERITONEAL FL COLOR COLORLESS (COLORLESS)
[2023-10-19] MEDS: NORCO, ANEXSIA 5/325MG TABLET (HYDROcodone/ACETAMINOPHEN) PO PRN (07:25)
[2023-10-19] MEDS: cefTRIAXone SOD 1 GM in D5W MINI-BAG PLUS 50 ML IV SCH (09:48)
[2023-10-19] MEDS: DIGOXIN 0.125 MG TAB PO SCH (09:48)
[2023-10-19] MEDS: INSULIN LISPRO (NovoLOG) PER UNIT SC SCH (09:48)
[2023-10-19] MEDS: metroNIDAZOLE 500 MG in IV 1 EA IV SCH (10:27)
[2023-10-20] VITALS (18 sets, daily range): BP systolic 112–144; BP diastolic 57–68; TEMP 97.3–98.7; O2SAT 92–98
[2023-10-20 05:38] LABS: BASO # 0.1 10^3/uL (0.0-0.2); BASO % 0.8 % (0.0-1.0); EOS # 0.3 10^3/uL (0.0-0.5); EOS % 3.1 % (0.0-3.0); HEMOGLOBIN 9.5 g/dl (13.5-17.5); LYMPH # 1.5 10^3/uL (1.5-5.0); LYMPH % 14.8 % (24.0-44.0); MEAN CORPUSCULAR HEMOGLOBIN 29.1 pg (27.0-33.0); MEAN CORPUSCULAR HGB CONC 31.7 g/dl (32.0-36.5); MONO # 0.8 10^3/uL (0.0-0.8); MONO % 7.5 % (2.0-8.0); NEUTROPHILS # 7.5 10^3/uL (1.5-8.5); NEUTROPHILS % 73.3 % (36.0-66.0); PLATELET COUNT, AUTOMATED 153 10^3/uL (150-450); RED BLOOD COUNT 3.26 10^6/uL (4.30-6.10); WHITE BLOOD COUNT 10.2 10^3/uL (4.0-10.0)
[2023-10-20 06:00] LABS: CALCIUM LEVEL 7.9 MG/DL (8.3-10.6); CREATININE FOR GFR 7.85 MG/DL (0.70-1.30); GLOMERULAR FILTRATION RATE 7.2 (>42); POTASSIUM SERUM 3.4 MMOL/L (3.5-5.1)
[2023-10-20] MEDS: POTASSIUM CHLORIDE 10MEQ SR TABLET PO SCH (08:55)
[2023-10-20] MEDS: SUCROFERRIC OXYHYDROXIDE 500MG CHEW TAB (VELPHORO) PO SCH (13:28)
[2023-10-21] MEDS: LIDOCAINE 5% (LIDODERM) PATCH TD SCH (02:36)
[2023-10-21 05:55] LABS: BASO # 0.1 10^3/uL (0.0-0.2); BASO % 0.6 % (0.0-1.0); EOS # 0.3 10^3/uL (0.0-0.5); EOS % 2.5 % (0.0-3.0); HEMATOCRIT 29.9 % (42.0-52.0); HEMOGLOBIN 9.7 g/dl (13.5-17.5); LYMPH # 1.6 10^3/uL (1.5-5.0); LYMPH % 15.7 % (24.0-44.0); MEAN CORPUSCULAR HEMOGLOBIN 29.6 pg (27.0-33.0); MEAN CORPUSCULAR HGB CONC 32.4 g/dl (32.0-36.5); MEAN CORPUSCULAR VOLUME 91.2 fl (80.0-96.0); MONO # 0.7 10^3/uL (0.0-0.8); MONO % 6.6 % (2.0-8.0); NEUTROPHILS # 7.6 10^3/uL (1.5-8.5); NEUTROPHILS % 74.2 % (36.0-66.0); PLATELET COUNT, AUTOMATED 146 10^3/uL (150-450); RED BLOOD COUNT 3.28 10^6/uL (4.30-6.10); WHITE BLOOD COUNT 10.2 10^3/uL (4.0-10.0)
[2023-10-21 06:26] LABS: CALCIUM LEVEL 7.9 MG/DL (8.3-10.6); CREATININE FOR GFR 7.74 MG/DL (0.70-1.30); GLOMERULAR FILTRATION RATE 7.3 (>42); POTASSIUM SERUM 3.2 MMOL/L (3.5-5.1)
[2023-10-21 08:22] VITALS: BP 112/60; TEMP 98.7; O2SAT 95
[2023-10-21] MEDS: POTASSIUM CHLORIDE 10MEQ SR TABLET PO SCH (09:41)
[2023-10-21] MEDS: MIRALAX *UNIT DOSE* 17GM PACKET PO SCH (12:48)
[2023-10-21] MEDS: SENOKOT S TAB PO SCH (12:48)
[2023-10-21] MEDS: DARBEPOETIN 100MCG/0.5ML *NON-DIALYSIS* SYRINGE SC SCH (12:49)
[2023-10-21 16:00] VITALS: BP 112/70; TEMP 98.6; O2SAT 97
[2023-10-21] MEDS: QUEtiapine FUMARATE 25 MG TAB PO ONE (17:32)
[2023-10-21 19:48] VITALS: BP 118/66; TEMP 98.1; O2SAT 95
[2023-10-21] MEDS: QUEtiapine FUMARATE 12.5 MG HALF-TAB PO SCH (22:10)
[2023-10-21 22:41] VITALS: BP 121/66; O2SAT 96
[2023-10-22 03:01] VITALS: BP 123/58; TEMP 97.3; O2SAT 94
[2023-10-22 05:49] LABS: BASO # 0.1 10^3/uL (0.0-0.2); BASO % 0.6 % (0.0-1.0); EOS # 0.3 10^3/uL (0.0-0.5); EOS % 2.4 % (0.0-3.0); HEMOGLOBIN 9.6 g/dl (13.5-17.5); LYMPH # 1.9 10^3/uL (1.5-5.0); LYMPH % 17.7 % (24.0-44.0); MEAN CORPUSCULAR HEMOGLOBIN 29.1 pg (27.0-33.0); MEAN CORPUSCULAR VOLUME 90.9 fl (80.0-96.0); MONO # 0.8 10^3/uL (0.0-0.8); MONO % 7.6 % (2.0-8.0); NEUTROPHILS # 7.6 10^3/uL (1.5-8.5); NEUTROPHILS % 71.2 % (36.0-66.0); PLATELET COUNT, AUTOMATED 172 10^3/uL (150-450); WHITE BLOOD COUNT 10.7 10^3/uL (4.0-10.0)
[2023-10-22 06:18] LABS: CALCIUM LEVEL 7.8 MG/DL (8.3-10.6); CREATININE FOR GFR 7.69 MG/DL (0.70-1.30); GLOMERULAR FILTRATION RATE 7.4 (>42); POTASSIUM SERUM 3.3 MMOL/L (3.5-5.1)
[2023-10-22] MEDS ORDERED: HEPARIN SOD (PORCINE) 5000UNITS/ML 1ML VIAL/SYRINGE IV PRN (08:25)
[2023-10-22 08:43] VITALS: BP 118/52; TEMP 96.8; O2SAT 93
[2023-10-22] MEDS: HEPARIN DRIP 25,000 UNITS in IV 1 EA IV SCH (12:00)
[2023-10-22] MEDS: ASPIRIN 81MG ENTERIC TABLET PO SCH (12:19)
[2023-10-22 12:49] VITALS: BP 118/52; TEMP 98.3; O2SAT 93
[2023-10-22 19:32] VITALS: BP 124/64; TEMP 98.7; O2SAT 94
[2023-10-22 19:42] VITALS: BP 109/59; TEMP 96.5; O2SAT 95
[2023-10-23 00:15] VITALS: BP 132/68; TEMP 98.2; O2SAT 95
[2023-10-23 04:07] LABS: BASO # 0.1 10^3/uL (0.0-0.2); BASO % 0.8 % (0.0-1.0); EOS # 0.3 10^3/uL (0.0-0.5); HEMATOCRIT 31.2 % (42.0-52.0); HEMOGLOBIN 10.1 g/dl (13.5-17.5); LYMPH # 2.4 10^3/uL (1.5-5.0); MEAN CORPUSCULAR HEMOGLOBIN 29.4 pg (27.0-33.0); MEAN CORPUSCULAR HGB CONC 32.4 g/dl (32.0-36.5); MONO # 0.8 10^3/uL (0.0-0.8); MONO % 7.9 % (2.0-8.0); NEUTROPHILS # 6.3 10^3/uL (1.5-8.5); PLATELET COUNT, AUTOMATED 153 10^3/uL (150-450); RED BLOOD COUNT 3.43 10^6/uL (4.30-6.10); WHITE BLOOD COUNT 9.8 10^3/uL (4.0-10.0)
[2023-10-23 04:16] VITALS: BP 123/59; TEMP 98.1; O2SAT 97
[2023-10-23 04:24] LABS: CALCIUM LEVEL 7.6 MG/DL (8.3-10.6); CREATININE FOR GFR 7.62 MG/DL (0.70-1.30); GLOMERULAR FILTRATION RATE 7.5 (>42); POTASSIUM SERUM 3.5 MMOL/L (3.5-5.1)
[2023-10-23 04:27] LABS: INR 1.49; PARTIAL THROMBOPLASTIN TIME 85.4 SECONDS (24.8-34.2); PROTHROMBIN TIME 17.6 SECONDS (12.5-14.5)
[2023-10-23] MEDS: CALCIUM CARBONATE 500 MG CHEW U/D PO PRN (04:37)
[2023-10-23 08:09] VITALS: BP 134/64; TEMP 97.5; O2SAT 90
[2023-10-23 16:00] VITALS: BP 118/50; TEMP 97.5; O2SAT 95
[2023-10-23 19:02] VITALS: BP 138/56; TEMP 98.8; O2SAT 95
[2023-10-23 23:57] VITALS: BP 126/65; TEMP 98.3; O2SAT 92
[2023-10-24] VITALS (9 sets, daily range): BP systolic 122–159; BP diastolic 62–77; PULSE 86–88; TEMP 97.4–98.7; O2SAT 93–99
[2023-10-24 05:47] LABS: BASO # 0.1 10^3/uL (0.0-0.2); BASO % 0.7 % (0.0-1.0); EOS # 0.2 10^3/uL (0.0-0.5); EOS % 2.5 % (0.0-3.0); HEMATOCRIT 30.7 % (42.0-52.0); HEMOGLOBIN 9.8 g/dl (13.5-17.5); LYMPH # 1.9 10^3/uL (1.5-5.0); LYMPH % 19.5 % (24.0-44.0); MEAN CORPUSCULAR HEMOGLOBIN 29.4 pg (27.0-33.0); MEAN CORPUSCULAR HGB CONC 31.9 g/dl (32.0-36.5); MEAN CORPUSCULAR VOLUME 92.2 fl (80.0-96.0); MONO # 0.7 10^3/uL (0.0-0.8); MONO % 6.8 % (2.0-8.0); NEUTROPHILS # 6.6 10^3/uL (1.5-8.5); NEUTROPHILS % 69.9 % (36.0-66.0); PLATELET COUNT, AUTOMATED 174 10^3/uL (150-450); RED BLOOD COUNT 3.33 10^6/uL (4.30-6.10); WHITE BLOOD COUNT 9.5 10^3/uL (4.0-10.0)
[2023-10-24 06:09] LABS: CREATININE FOR GFR 7.68 MG/DL (0.70-1.30); GLOMERULAR FILTRATION RATE 7.4 (>42); POTASSIUM SERUM 3.5 MMOL/L (3.5-5.1)
[2023-10-24] MEDS: PANTOPRAZOLE 40MG TAB (PROTONIX) PO SCH (22:39)
[2023-10-25 03:39] VITALS: BP 116/52; TEMP 98.5; O2SAT 98
[2023-10-25 05:52] LABS: BASO # 0.1 10^3/uL (0.0-0.2); BASO % 0.7 % (0.0-1.0); EOS # 0.2 10^3/uL (0.0-0.5); EOS % 2.5 % (0.0-3.0); HEMATOCRIT 31.2 % (42.0-52.0); HEMOGLOBIN 10.1 g/dl (13.5-17.5); LYMPH % 21.1 % (24.0-44.0); MEAN CORPUSCULAR HEMOGLOBIN 29.4 pg (27.0-33.0); MEAN CORPUSCULAR HGB CONC 32.4 g/dl (32.0-36.5); MEAN CORPUSCULAR VOLUME 90.7 fl (80.0-96.0); MONO # 0.7 10^3/uL (0.0-0.8); MONO % 7.7 % (2.0-8.0); NEUTROPHILS # 6.4 10^3/uL (1.5-8.5); NEUTROPHILS % 67.4 % (36.0-66.0); PLATELET COUNT, AUTOMATED 175 10^3/uL (150-450); RED BLOOD COUNT 3.44 10^6/uL (4.30-6.10); WHITE BLOOD COUNT 9.5 10^3/uL (4.0-10.0)
[2023-10-25 06:25] LABS: CALCIUM LEVEL 8.1 MG/DL (8.3-10.6); CREATININE FOR GFR 7.64 MG/DL (0.70-1.30); GLOMERULAR FILTRATION RATE 7.4 (>42); POTASSIUM SERUM 3.9 MMOL/L (3.5-5.1)
[2023-10-25 07:29] VITALS: BP 114/52; TEMP 98.5; O2SAT 97
[2023-10-25] MEDS: MIRALAX *UNIT DOSE* 17GM PACKET PO PRN (08:02)
[2023-10-25 11:27] VITALS: BP 134/56; TEMP 98.9; O2SAT 98
[2023-10-25 15:50] VITALS: BP 128/52; PULSE 85; TEMP 98.2; O2SAT 98
[2023-10-25] MEDS: CALCIUM CARBONATE 500 MG CHEW U/D PO SCH (17:55)
[2023-10-25 20:28] VITALS: BP 128/62; TEMP 98.3; O2SAT 99
[2023-10-25 23:33] VITALS: BP 124/58; TEMP 97.9; O2SAT 98
[2023-10-26] VITALS (8 sets, daily range): BP systolic 112–128; BP diastolic 54–58; PULSE 82–92; TEMP 97.4–98.9; O2SAT 97–100
[2023-10-26 00:50] LABS: INR 1.15; PARTIAL THROMBOPLASTIN TIME 80.8 SECONDS (24.8-34.2); PROTHROMBIN TIME 14.4 SECONDS (12.5-14.5)
[2023-10-26 10:12] LABS: BASO # 0.1 10^3/uL (0.0-0.2); BASO % 0.7 % (0.0-1.0); EOS # 0.2 10^3/uL (0.0-0.5); EOS % 2.5 % (0.0-3.0); HEMATOCRIT 30.3 % (42.0-52.0); HEMOGLOBIN 9.7 g/dl (13.5-17.5); MEAN CORPUSCULAR HEMOGLOBIN 29.8 pg (27.0-33.0); MEAN CORPUSCULAR VOLUME 92.9 fl (80.0-96.0); MONO # 0.7 10^3/uL (0.0-0.8); MONO % 7.4 % (2.0-8.0); NEUTROPHILS # 5.8 10^3/uL (1.5-8.5); NEUTROPHILS % 66.1 % (36.0-66.0); PLATELET COUNT, AUTOMATED 195 10^3/uL (150-450); RED BLOOD COUNT 3.26 10^6/uL (4.30-6.10); WHITE BLOOD COUNT 8.8 10^3/uL (4.0-10.0)
[2023-10-26 10:37] LABS: CALCIUM LEVEL 8.1 MG/DL (8.3-10.6); CK-MB VALUE MASS 4.7 NG/ML (<3.6); CREATININE FOR GFR 7.65 MG/DL (0.70-1.30); GLOMERULAR FILTRATION RATE 7.4 (>42); MB/CK RELATIVE INDEX 9.03 (< OR =4); POTASSIUM SERUM 3.9 MMOL/L (3.5-5.1)
[2023-10-26] MEDS: HEPARIN SOD (PORCINE) 5000UNITS/ML 1ML VIAL/SYRINGE PD ONE (13:02)
[2023-10-27] VITALS: PULSE 92
[2023-10-27 01:14] LABS: INR 1.18; PARTIAL THROMBOPLASTIN TIME 81.5 SECONDS (24.8-34.2); PROTHROMBIN TIME 14.7 SECONDS (12.5-14.5)
[2023-10-27 03:16] VITALS: BP 120/62; TEMP 98.2; O2SAT 99
[2023-10-27 07:39] VITALS: BP 132/62; TEMP 97.8; O2SAT 100
[2023-10-27] MEDS ORDERED: MIRA33506 PO (10:06)
[2023-10-27] MEDS ORDERED: PANT40TA29 PO (10:06)
[2023-10-27] MEDS ORDERED: LIDO5TD TD (10:06)
[2023-10-27] MEDS ORDERED: QUET1TAB17 PO (10:06)
[2023-10-27] MEDS ORDERED: DARB10SYRN SC (10:06)
[2023-10-27] MEDS ORDERED: POTA-136 PO (10:06)
[2023-10-27] MEDS ORDERED: SENN-52 PO (10:06)
[2023-10-27] MEDS ORDERED: ASPI81TAEC PO (10:06)
[2023-10-27] MEDS ORDERED: CALC200T15 PO (10:06)
== END 2023-10-27 12:05 | disposition short-term general hospital (02) | DRG 356 ==
LOC: EDBD 13:42 → M ED 13:42 → EEVIPCON 18:18 → M ED INP 18:18 → M PCU 20:18
PROVIDERS: ADMIT Internal Medicine Nephrology; ATTEND Internal Medicine Nephrology
PROC: 0JBQ0ZZ Excision of Right Foot Subcutaneous Tissue and Fascia, Open Approach (ICD-10-PCS; principal; 2023-10-23)
PROC: 0JBR0ZZ Excision of Left Foot Subcutaneous Tissue and Fascia, Open Approach (ICD-10-PCS; 2023-10-23)
DX: K29.70 Gastritis, unspecified, without bleeding (principal); N18.6 End stage renal disease; I21.4 Non-ST elevation (NSTEMI) myocardial infarction; U07.1 COVID-19; I13.2 Hypertensive heart and chronic kidney disease with heart failure and with stage 5 chronic kidney disease, or end stage renal disease; I69.354 Hemiplegia and hemiparesis following cerebral infarction affecting left non-dominant side; I50.42 Chronic combined systolic (congestive) and diastolic (congestive) heart failure; K57.92 Diverticulitis of intestine, part unspecified, without perforation or abscess without bleeding; E87.1 Hypo-osmolality and hyponatremia; I20.0 Unstable angina; I48.20 Chronic atrial fibrillation, unspecified; I27.20 Pulmonary hypertension, unspecified; K74.60 Unspecified cirrhosis of liver; E11.51 Type 2 diabetes mellitus with diabetic peripheral angiopathy without gangrene; E11.22 Type 2 diabetes mellitus with diabetic chronic kidney disease; D64.9 Anemia, unspecified; E21.1 Secondary hyperparathyroidism, not elsewhere classified; E78.5 Hyperlipidemia, unspecified; E87.6 Hypokalemia; I95.1 Orthostatic hypotension; E86.0 Dehydration; N20.0 Calculus of kidney; Z86.718 Personal history of other venous thrombosis and embolism; F32.A Depression, unspecified; G47.00 Insomnia, unspecified; Z89.421 Acquired absence of other right toe(s); Z89.422 Acquired absence of other left toe(s); K59.00 Constipation, unspecified; E83.39 Other disorders of phosphorus metabolism; B96.5 Pseudomonas (aeruginosa) (mallei) (pseudomallei) as the cause of diseases classified elsewhere; R26.89 Other abnormalities of gait and mobility; R29.6 Repeated falls; Z88.8 Allergy status to other drugs, medicaments and biological substances; Z79.82 Long term (current) use of aspirin; Z79.899 Other long term (current) drug therapy; Z79.4 Long term (current) use of insulin; E11.621 Type 2 diabetes mellitus with foot ulcer; L97.529 Non-pressure chronic ulcer of other part of left foot with unspecified severity; L97.519 Non-pressure chronic ulcer of other part of right foot with unspecified severity; R41.0 Disorientation, unspecified